=== PATIENT | female | born 1960 | race Caucasian/White ===

== ENCOUNTER 2017-04-16 11:02 | Observation (INO) ==
[2017-04-16] MEDS ORDERED: Ondansetron 4 MG/2 ML VIAL IVP ONE (11:20)
[2017-04-16] MEDS ORDERED: *HR* HYDROmorphone (PF) 1 MG/ML SYRINGE IVP ONE (11:20)
--- NOTE | 2017-04-16 11:20 | Emergency Department Note ---
Disposition Clinical Impression: Abdominal pain, Hypoxia Disposition: Admitted As Inpatient Condition: Good General Adult HPI - General Chief complaint: ED Abdominal Pain Stated complaint: ABD / Back Pain Time Seen by Provider: 04/16/17 11:11 Source: patient Limitations: no limitations - History of Present Illness Pain Scale: 10 - Related Data Home Medications Medication Instructions Recorded Confirmed Albuterol Neb [Proventil Neb] 2.5 mg IH TID PRN 06/09/16 04/16/17 Atorvastatin Calcium [Lipitor] 80 mg PO HS 06/09/16 04/16/17 Budesonide/Formoterol 160/4.5 2 puff IH BIDR 06/09/16 04/16/17 [Symbicort 160/4.5] Fluticasone Propionate Nasal 2 spray NS DAILY 06/09/16 04/16/17 [Flonase] Ipratropium/Albuterol Sulfate 1 puff IH QID 06/09/16 04/16/17 [Combivent Respimat Inhal [place]] Magnesium Oxide [Magnesium] 400 mg PO DAILY 06/09/16 04/16/17 Metoprolol XL (24 HR) Succ [Toprol 100 mg PO DAILY 06/09/16 04/16/17 Xl] Omeprazole [PriLOSEC] 20 mg PO DAILY 06/09/16 04/16/17 Paroxetine HCl [Paroxetine] 40 mg PO DAILY 06/09/16 04/16/17 Vitamin B Complex [B Complex] 1 tab PO DAILY 06/09/16 04/16/17 amLODIPine [Norvasc] 5 mg PO DAILY 06/09/16 04/16/17 Guaifenesin [Mucinex] 600 mg PO BID 07/11/16 04/16/17 Promethazine [Phenergan] 25 mg PO Q8HR PRN 07/11/16 04/16/17 hydrOXYzine HCl [Hydroxyzine HCl] 50 mg PO BID 07/11/16 04/16/17 Aspirin [Lo-Dose Aspirin EC] 81 mg PO DAILY 08/02/16 04/16/17 Albuterol Sulfate [Ventolin Hfa] 2 puff IH Q4H PRN 04/16/17 04/16/17 Loperamide [Imodium] 2 mg PO DAILY PRN 04/16/17 04/16/17 Naproxen [Naprosyn] 500 mg PO BID 04/16/17 04/16/17 Potassium Chloride [K-Tab ER] 20 meq PO DAILY 04/16/17 04/16/17 Allergies Allergy/AdvReac Type Severity Reaction Status Date / Time No Known Allergies Allergy Verified 06/09/16 14:59 Past Medical History - Past Medical History Medical history: Reports: COPD, hypertension, liver disease, TIA Surgical history: Reports: other (D/C, attempted colonoscopy (to prox Tcolon)) Psychiatric history: Reports: anxiety, depression - Social History Smoking Status: Current every day smoker Smokeless Tobacco Status: No Alcohol use: Reports: heavy Drug use: Reports: none Physical Exam - General Limitations: no limitations General appearance: alert Course Vital Signs Temperature 98.7 F 04/16/17 11:07 Pulse Rate 86 04/16/17 11:07 Respiratory Rate 18 04/16/17 11:07 Blood Pressure 153/91 04/16/17 11:07 O2 Sat by Pulse Oximetry 97 04/16/17 11:07 Temperature 98.4 F 04/17/17 07:00 Pulse Rate 74 04/17/17 07:00 Respiratory Rate 16 04/17/17 07:00 Blood Pressure 159/98 04/17/17 07:00 O2 Sat by Pulse Oximetry 98 04/17/17 07:00 Oxygen Delivery Oxygen Delivery Nasal Cannula Medical Decision Making - Lab Data Result diagrams: 04/16/17 12:01 04/16/17 12:01 Lab Results 04/16/17 04/16/17 04/16/17 Range/Units 11:30 12:01 12:01 WBC 10.6 (4.3-11.1) K/mcL RBC 4.15 (3.82-4.97) M/mcL Hgb 13.3 (11.5-15.4) g/dL Hct 39.0 (35.3-44.9) % MCV 94.0 (83.0-100.0) fL MCH 32.0 (28.0-33.3) pg MCHC 34.1 (31.6-35.5) g/dL RDW 13.2 (11.5-14.5) % Plt Count (140-400) K/mcL MPV (9.4-12.4) fL Immature Gran % 0.3 (0-4) % Seg Neutrophils % 84.9 % Lymphocytes % 6.8 % Monocytes % 6.5 % Eosinophils % 0.8 % Basophils % 0.7 % Neutrophils # 9.0 H (1.6-8.9) K/mcL Lymphocytes # 0.7 (0.6-4.6) K/mcL Monocytes # 0.7 (0.0-1.3) K/mcL Eosinophils # 0.1 (0.0-0.6) K/mcL Basophils # 0.1 (0.0-0.2) K/mcL Plt Count ,Citrate (150-600) Sodium 132 L (136-145) mEq/L Potassium 3.8 (3.5-4.5) mEq/L Chloride 95 L (98-109) mEq/L Carbon Dioxide 24 (19-29) mEq/L BUN 3 L (7-20) mg/dL Creatinine 0.65 (0.57-1.11) mg/dL Est GFR ( Amer) > 60 (> 60) Est GFR (Non-Af Amer) > 60 (> 60) BUN/Creatinine Ratio 5 L (6-26) Glucose 112 H (70-99) mg/dL Calculated Osmolality 271 L (280-300) Calcium 9.1 (8.6-10.8) mg/dL Total Bilirubin 0.6 (0.2-1.2) mg/dL Direct Bilirubin 0.3 (0.0-0.5) mg/dL Indirect Bilirubin 0.3 (0.0-1.2) mg/dL AST 39 H (5-34) Units/L ALT 20 (0-55) Units/L Alkaline Phosphatase 205 H (38-126) Units/L Troponin I (0-0.03) ng/mL Serum Total Protein 7.6 (6.0-8.3) g/dL Albumin 3.3 L (3.5-5.0) g/dL Globulin 4.3 H (2.4-3.5) g/dL Albumin/Globulin Ratio 0.8 L (1.1-2.2) Lipase 10 (8-78) Units/L Urine Color Yellow (Yellow) Urine Clarity Cloudy A (Clear) Urine pH 7.5 (5.0-8.0) pH Units Ur Specific [place] 1.010 (1.010-1.025) Urine Protein Negative (Neg-Trace) mg/dL Urine Glucose (UA) Normal (Normal) mg/dL Urine Ketones Negative (Negative) mg/dL Urine Blood Negative (Negative) Urine Nitrite Negative (Negative) Urine Bilirubin Negative (Negative) Urine Urobilinogen Normal (Normal) mg/dL Ur Leukocyte Esterase Moderate H (Negative) Urine Microscopic RBC 5-15 H (0-3) per hpf Urine Microscopic WBC 15-30 H (0-3) per hpf Ur Squamous Epith Cells Moderate H (None-Few) per lpf Urine Bacteria Many H (None-Few) per hpf Hyaline Casts None Seen (None-Few) per lpf Ur Culture Indicated? YES A (NO) 04/16/17 04/16/17 Range/Units 12:01 12:01 WBC (4.3-11.1) K/mcL RBC (3.82-4.97) M/mcL Hgb (11.5-15.4) g/dL Hct (35.3-44.9) % MCV (83.0-100.0) fL MCH (28.0-33.3) pg MCHC (31.6-35.5) g/dL RDW (11.5-14.5) % Plt Count (140-400) K/mcL MPV 8.7 L (9.4-12.4) fL Immature Gran % (0-4) % Seg Neutrophils % % Lymphocytes % % Monocytes % % Eosinophils % % Basophils % % Neutrophils # (1.6-8.9) K/mcL Lymphocytes # (0.6-4.6) K/mcL Monocytes # (0.0-1.3) K/mcL Eosinophils # (0.0-0.6) K/mcL Basophils # (0.0-0.2) K/mcL Plt Count ,Citrate 312.4 (150-600) Sodium (136-145) mEq/L Potassium (3.5-4.5) mEq/L Chloride (98-109) mEq/L Carbon Dioxide (19-29) mEq/L BUN (7-20) mg/dL Creatinine (0.57-1.11) mg/dL Est GFR ( Amer) (> 60) Est GFR (Non-Af Amer) (> 60) BUN/Creatinine Ratio (6-26) Glucose (70-99) mg/dL Calculated Osmolality (280-300) Calcium (8.6-10.8) mg/dL Total Bilirubin (0.2-1.2) mg/dL Direct Bilirubin (0.0-0.5) mg/dL Indirect Bilirubin (0.0-1.2) mg/dL AST (5-34) Units/L ALT (0-55) Units/L Alkaline Phosphatase (38-126) Units/L Troponin I 0.01 (0-0.03) ng/mL Serum Total Protein (6.0-8.3) g/dL Albumin (3.5-5.0) g/dL Globulin (2.4-3.5) g/dL Albumin/Globulin Ratio (1.1-2.2) Lipase (8-78) Units/L Urine Color (Yellow) Urine Clarity (Clear) Urine pH (5.0-8.0) pH Units Ur Specific [place] (1.010-1.025) Urine Protein (Neg-Trace) mg/dL Urine Glucose (UA) (Normal) mg/dL Urine Ketones (Negative) mg/dL Urine Blood (Negative) Urine Nitrite (Negative) Urine Bilirubin (Negative) Urine Urobilinogen (Normal) mg/dL Ur Leukocyte Esterase (Negative) Urine Microscopic RBC (0-3) per hpf Urine Microscopic WBC (0-3) per hpf Ur Squamous Epith Cells (None-Few) per lpf Urine Bacteria (None-Few) per hpf Hyaline Casts (None-Few) per lpf Ur Culture Indicated? (NO) Attestation Statement - Attestation Attestation: I examined this patient and my medical decision-making was reviewed with the Resident Physician. I agree with the documented findings, disposition and treatment plan as described except to the extent set forth below. [id number] time provided Patient complains of epigastric pain. She states this is chronic over the past 1 year. She is uncomfortable appearing on exam. Appears older than stated age. I have reviewed the transcribed reports from her hepatobiliary scan, abdominal MRI and surgery discharge note. Given that the abdominal MRI dated last year shows an edematous gallbladder wall, I am concerned about ongoing biliary issues. This could also represent peptic ulcer disease versus ulcer. Workup to be initiated
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
[2017-04-16 11:40] LABS: Bilirubin,Urine Negative (Negative); Blood,Urine Negative (Negative); Clarity,Urine Cloudy (Clear); Color,Urine Yellow (Yellow); Glucose,Urine (UA) Normal (Normal); Ketones,Urine Negative (Negative); Leukocyte Esterase,Urine Moderate (Negative); Nitrite,Urine Negative (Negative); PH,Urine 7.5 pH Units (5.0-8.0); Protein,Urine Negative (Neg-Trace); Urobilinogen,Urine Normal (Normal)
[2017-04-16 11:41] LABS: Bacteria,Urine Many per hpf (None-Few); Hyaline Casts,Urine None Seen per lpf (None-Few); Squamous Epithelial Cell,Urine Moderate per lpf (None-Few); WBC,Urine 15-30 per hpf (0-3)
[2017-04-16] MEDS ORDERED: Ipratropium/Albuterol Neb 3 ML IH ONE (11:45)
[2017-04-16] MEDS ORDERED: Ipratropium/Albuterol Neb 3 ML ONE (11:54)
[2017-04-16 12:09] LABS: Basophils % 0.7 %; Hemoglobin 13.3 g/dL (11.5-15.4)
[2017-04-16 12:11] LABS: Basophils # 0.1 K/mcL (0.0-0.2); Eosinophils # 0.1 K/mcL (0.0-0.6); Eosinophils % 0.8 %; Immature Granulocytes % 0.3 % (0-4); Lymphocytes # 0.7 K/mcL (0.6-4.6); Lymphocytes % 6.8 %; Mean Corpuscular HGB Conc 34.1 g/dL (31.6-35.5); Monocytes # 0.7 K/mcL (0.0-1.3); Monocytes % 6.5 %; Red Blood Count 4.15 M/mcL (3.82-4.97); Red Cell Distribution Width 13.2 % (11.5-14.5); Segmented Neutrophils % 84.9 %
[2017-04-16 12:28] LABS: Alanine Aminotransferase 20 Units/L (0-55); Albumin 3.3 g/dL (3.5-5.0); Albumin/Globulin Ratio 0.8 (1.1-2.2); Alkaline Phosphatase 205 Units/L (38-126); Aspartate Amino Transferase 39 Units/L (5-34); BUN/Creatinine Ratio 5 (6-26); Bilirubin,Direct 0.3 mg/dL (0.0-0.5); Bilirubin,Indirect 0.3 mg/dL (0.0-1.2); Bilirubin,Total 0.6 mg/dL (0.2-1.2); Calcium 9.1 mg/dL (8.6-10.8); Carbon Dioxide 24 mEq/L (19-29); Chloride 95 mEq/L (98-109); Globulin 4.3 g/dL (2.4-3.5); Glucose 112 mg/dL (70-99); Lipase 10 Units/L (8-78); Osmolality,Calculated 271 (280-300); Potassium 3.8 mEq/L (3.5-4.5); Sodium 132 mEq/L (136-145); Total Protein 7.6 g/dL (6.0-8.3); eGFR For African Americans > 60 (> 60); eGFR For Non-African Americans > 60 (> 60)
[2017-04-16 12:32] LABS: Blood Urea Nitrogen 3 mg/dL (7-20)
[2017-04-16 12:50] LABS: Mean Platelet Volume 8.7 fL (9.4-12.4)
--- NOTE | 2017-04-16 16:16 | Electrocardiograph Report ---
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
[2017-04-16] MEDS ORDERED: Naloxone 0.4 MG/ML INJ IVP PRN (16:45)
[2017-04-16] MEDS ORDERED: *HR* Morphine 2 MG/ML SYRINGE IVP PRN (16:45)
[2017-04-16] MEDS ORDERED: Ondansetron ODT 4 MG TAB.RAPDIS SL PRN (16:45)
[2017-04-16] MEDS ORDERED: Ondansetron 4 MG/2 ML VIAL IVP PRN (16:45)
[2017-04-16] MEDS ORDERED: Ipratropium/Albuterol Neb 3 ML IH PRN (16:47)
[2017-04-16] MEDS ORDERED: *HR* Promethazine 25 MG/ML VIAL IVP PRN (17:02)
[2017-04-16] MEDS ORDERED: *HR* LORazepam 2 MG/ML VIAL IVP PRN (17:02)
--- NOTE | 2017-04-16 17:10 | Internal Med History&Physical ---
Date of Encounter: 04/16/17 Time of Encounter: 17:06 Assessment and Plan (1) Intractable nausea and vomiting Current visit: Yes Status: Acute Place the pt into Tele for observation her intractable N / V due to viral gastroenteritis also concerning for alcohol withdrawl symptoms pt stated she did have last alcohol drink 48hrs ago at this point cont symptomatic and supportive care IV hydration PO PPI Anti emetics Qualifiers: Qualified Code(s): R11.2 - Nausea with vomiting, unspecified (2) Gastroenteritis Current visit: Yes Status: Acute mostly viral etiology also possible withdrawl symptoms (3) Alcohol withdrawal Current visit: Yes Status: Acute concerning for alcohol withdrawl symptoms pt stated she did have last alcohol drink 48hrs ago at this point cont symptomatic and supportive care IV hydration PO PPI Anti emetics started her on CIWA protocol Qualifiers: Qualified Code(s): F10.230 - Alcohol dependence with withdrawal, uncomplicated (4) COPD (chronic obstructive pulmonary disease) Current visit: Yes Status: Chronic no signs of exacerbation cont bronchodilators and O2 resume home INH no need of systemic steroids Qualifiers: Qualified Code(s): J44.9 - Chronic obstructive pulmonary disease, unspecified (5) Hypoxia Current visit: Yes Status: Acute due to COPD need home O2 eval and over nite pulse oxy --ordered (6) Tobacco dependence Current visit: Yes Status: Acute counseled to quit and placed her on nicotine patch (7) Alcohol abuse Current visit: No Status: Chronic counseled to quit drinking (8) Hypertension Current visit: Yes Status: Acute resumed home meds Qualifiers: Hypertension type: essential hypertension Qualified Code(s): I10 - Essential (primary) hypertension Internal Medicine - H&P: HPI Chief complaint: Nausea / vomiting - Hypoxia Admitted From: Emergency Dept Plans for Post Hospital Care: Home History of present illness: Ms. Rodriguez is a 57 year old female with known PMH of HTN, HLD, COPD and Chronic hypoxic resp failure - but not using Oxygen from last 3months, also chronic alcohol dependence , drinks 6 beer every day presented to ER c/o she has been having nausea and vomiting since last 2 days with epigastric discomfort and diarrhea. Pt symptoms improved here in the ER and she was about sent home, her Spo2 dropped down to 75 % and required home O2 evaluation. Pt denied any CP. Denied any cough with expectoration. Past Med Surg Social Fam HX - Past Medical History Medical history: COPD, hypertension, liver disease, TIA Psychiatric history: anxiety, depression - Past Surgical History Surgical History: other (D/C, attempted colonoscopy (to prox Tcolon)) - Social History Smoking Status: Current every day smoker Smokeless Tobacco Status: No Alcohol use: heavy Drug use: none Internal Medicine - H&P: Meds Albuterol Neb [Proventil Neb] 2.5 mg IH TID PRN 06/09/16 [History] Atorvastatin Calcium [Lipitor] 80 mg PO HS 06/09/16 [History] Budesonide/Formoterol 160/4.5 [Symbicort 160/4.5] 2 puff IH BIDR 06/09/16 [ History] Fluticasone Propionate Nasal [Flonase] 2 spray NS DAILY 06/09/16 [History] Ipratropium/Albuterol Sulfate [Combivent Respimat Inhal [place]] 1 puff IH QID [History] Magnesium Oxide [Magnesium] 400 mg PO DAILY 06/09/16 [History] Metoprolol XL (24 HR) Succ [Toprol Xl] 100 mg PO DAILY 06/09/16 [History] Omeprazole [PriLOSEC] 20 mg PO DAILY 06/09/16 [History] Paroxetine HCl [Paroxetine] 40 mg PO DAILY 06/09/16 [History] Vitamin B Complex [B Complex] 1 tab PO DAILY 06/09/16 [History] amLODIPine [Norvasc] 5 mg PO DAILY 06/09/16 [History] Guaifenesin [Mucinex] 600 mg PO BID 07/11/16 [History] Promethazine [Phenergan] 25 mg PO Q8HR PRN 07/11/16 [History] hydrOXYzine HCl [Hydroxyzine HCl] 50 mg PO BID 07/11/16 [History] Aspirin [Lo-Dose Aspirin EC] 81 mg PO DAILY 08/02/16 [History] Albuterol Sulfate [Ventolin Hfa] 2 puff IH Q4H PRN 04/16/17 [History] Loperamide [Imodium] 2 mg PO DAILY PRN 04/16/17 [History] Naproxen [Naprosyn] 500 mg PO BID 04/16/17 [History] Potassium Chloride [K-Tab ER] 20 meq PO DAILY 04/16/17 [History] Allergies No Known Allergies Allergy (Verified 06/09/16 14:59) All Systems PM: A 10-system review of systems was performed and is negative for pertinent findings except as documented above in the HPI. Review of systems: Reviewed all the systems everything is benign except the systems and symptoms I mentioned in HPI. - Constitutional Vitals: Temp Pulse Resp BP Pulse Ox 98.7 F 76 24 133/91 97 04/16/17 11:07 04/16/17 15:36 04/16/17 16:55 04/16/17 16:55 04/16/17 15:36 General appearance: Present: A&O X 3, no acute distress, answers questions appropriately - Head Head exam: Present: atraumatic, normal inspection - Respiratory Respiratory exam: Present: decreased breath sounds, wheezes. Absent: respiratory distress, rhonchi - Cardiovascular Cardiovascular exam: Present: RRR, +S1, +S2. Absent: diastolic murmur, systolic murmur - GI/Abdominal GI/Abdominal exam: Present: normal bowel sounds, soft. Absent: distended, guarding, rebound, rigid, tenderness - Extremities Exam Extremities exam: Absent: calf tenderness, pedal edema, tenderness - Back Exam Back exam: Absent: CVA tenderness (L), CVA tenderness (R) - Neurological Exam Neurological exam: Present: alert, oriented X3 - Psychiatric Psychiatric exam: Present: anxious Internal Med - H&P Results - Labs CBC & Chem 7: 04/16/17 12:01 04/16/17 12:01 - Diagnostic Studies CT scan - abdomen Additional comments: No acute abnormality. Sigmoid diverticulosis Incomplete distention of the sigmoid, most likely due to underdistention and less likely due to mild colitis. There is no adjacent inflammatory change.
[2017-04-16] MEDS: Nicotine 21 MG PATCH.TD24 TD SCH (17:59)
[2017-04-16] MEDS: hydrOXYzine pamoate 25 MG CAPSULE PO SCH (19:42)
[2017-04-16] MEDS: *HR* LORazepam 2 MG/ML VIAL IVP PRN (19:42)
[2017-04-16] MEDS: Budesonide/Formoterol 160/4.5 MDI IH SCH (20:34)
[2017-04-17] MEDS: *HR* LORazepam 2 MG/ML VIAL IVP PRN ×2 (00:52→06:38)
[2017-04-17] MEDS: *HR* OxyCODONE Immed Rel 5 MG TABLET PO PRN ×2 (00:52→06:38)
[2017-04-17 07:06] VITALS: BP 159/98
--- NOTE | 2017-04-17 08:26 | Discharge Summary ---
Date of Encounter: 04/17/17 Time of Encounter: 08:21 - Discharge Diagnosis (1) Intractable nausea and vomiting Priority: Primary Status: Resolved Qualifiers: Qualified Code(s): R11.2 - Nausea with vomiting, unspecified (2) Gastroenteritis Priority: Secondary Status: Resolved (3) Alcohol withdrawal Priority: Secondary Status: Acute Qualifiers: Qualified Code(s): F10.230 - Alcohol dependence with withdrawal, uncomplicated (4) COPD (chronic obstructive pulmonary disease) Priority: Secondary Status: Chronic Qualifiers: Qualified Code(s): J44.9 - Chronic obstructive pulmonary disease, unspecified (5) Hypoxia Priority: Primary Status: Acute (6) Tobacco dependence Priority: Secondary Status: Acute (7) Alcohol abuse Priority: Secondary Status: Chronic (8) Hypertension Priority: Secondary Status: Acute Qualifiers: Hypertension type: essential hypertension Qualified Code(s): I10 - Essential (primary) hypertension - Discharge Medications Prescriptions: LORazepam [Ativan] 0.5 mg PO TID PRN #10 tablet PRN Reason: Alcohol Withdrawal Nicotine Patch [Nicoderm] 21 mg TD DAILY #28 Home Medications: Albuterol Neb [Proventil Neb] 2.5 mg IH TID PRN 06/09/16 [History] Atorvastatin Calcium [Lipitor] 80 mg PO HS 06/09/16 [History] Budesonide/Formoterol 160/4.5 [Symbicort 160/4.5] 2 puff IH BIDR 06/09/16 [ History] Fluticasone Propionate Nasal [Flonase] 2 spray NS DAILY 06/09/16 [History] Ipratropium/Albuterol Sulfate [Combivent Respimat Inhal [place]] 1 puff IH QID [History] Magnesium Oxide [Magnesium] 400 mg PO DAILY 06/09/16 [History] Metoprolol XL (24 HR) Succ [Toprol Xl] 100 mg PO DAILY 06/09/16 [History] Omeprazole [PriLOSEC] 20 mg PO DAILY 06/09/16 [History] Paroxetine HCl [Paroxetine] 40 mg PO DAILY 06/09/16 [History] Vitamin B Complex [B Complex] 1 tab PO DAILY 06/09/16 [History] amLODIPine [Norvasc] 5 mg PO DAILY 06/09/16 [History] Guaifenesin [Mucinex] 600 mg PO BID 07/11/16 [History] Promethazine [Phenergan] 25 mg PO Q8HR PRN 07/11/16 [History] hydrOXYzine HCl [Hydroxyzine HCl] 50 mg PO BID 07/11/16 [History] Aspirin [Lo-Dose Aspirin EC] 81 mg PO DAILY 08/02/16 [History] Albuterol Sulfate [Ventolin Hfa] 2 puff IH Q4H PRN 04/16/17 [History] Loperamide [Imodium] 2 mg PO DAILY PRN 04/16/17 [History] Potassium Chloride [K-Tab ER] 20 meq PO DAILY 04/16/17 [History] LORazepam [Ativan] 0.5 mg PO TID PRN #10 tablet 04/17/17 [Rx] Naproxen [Naprosyn] 500 mg PO BID PRN #0 04/17/17 [Rx] Nicotine Patch [Nicoderm] 21 mg TD DAILY #28 04/17/17 [Rx] Allergies/Adverse Reactions: Allergies No Known Allergies Allergy (Verified 06/09/16 14:59) Date of admission: 04/16/17 16:37 Primary care physician: PCP NONE Consults: 04/16/17 17:02 Consult to Biblical Studies Professor [CONS] Routine Reason for SW Consult: Alcohol dependence - Patient Status Disposition: Home, Self-Care Condition: Good Overall status at discharge: patient is back to baseline - Discharge Instructions Follow Up With: NONE,PCP [Primary Care Provider] - - Diet and Activity Activity: increase activity as tolerated, wear oxygen at all times (3 lit) Diet: low salt diet Hospital course: Ms. Rodriguez is a 57 year old female with known PMH of HTN, HLD, COPD and Chronic hypoxic resp failure - but not using Oxygen from last 3months, also chronic alcohol dependence , drinks 6 beer every day presented to ER c/o she has been having nausea and vomiting since last 2 days with epigastric discomfort and diarrhea. Pt symptoms improved here in the ER and she was about sent home, her Spo2 dropped down to 75 % and required home O2 evaluation. Pt was admitted here last night for hypoxia and acute viral gastroenteritis. Her nausea and vomiting improved. She is tolerating PO intake well. I did college and career counselor the pt to quit drinking alcohol, she wants to think about it. Also counseled the pt to quit smoking and discharging her home on Nicotine patches. We did over night pulse oxy study which showed Spo2 below 88 % even on 2 lit O2, required 3 lit O2 at night time. During day time at resting her Spo2 78 %, and with 3 lit O2 her SPo2 93 %. So will d/c her home today with 3 lit continuous O2. - Time Spent with Patient Total time spent providing and/or coordinating discharge services: - Constitutional Vitals: Temp Pulse Resp BP Pulse Ox 98.4 F 74 16 159/98 98 04/17/17 07:00 04/17/17 07:00 04/17/17 07:00 04/17/17 07:00 04/17/17 07:00 General appearance: Present: A&O X 3, no acute distress, answers questions appropriately - Head Head exam: Present: atraumatic, normal inspection - Neck Neck exam general surgery: Present: supple. Absent: lymphadenopathy, thyromegaly - Respiratory Respiratory exam: Present: decreased breath sounds, wheezes. Absent: rales, respiratory distress, rhonchi, tachypnea - Cardiovascular Cardiovascular exam: Present: RRR, +S1, +S2 - GI/Abdominal GI/Abdominal exam: Present: normal bowel sounds, soft. Absent: distended, guarding, rebound, rigid, tenderness - Extremities Exam Extremities exam: Absent: calf tenderness, pedal edema, tenderness - Neurological Exam Neurological exam: Present: alert, oriented X3 - Psychiatric Psychiatric exam: Present: normal affect, normal mood
[2017-04-17] MEDS: hydrOXYzine pamoate 25 MG CAPSULE PO SCH (08:29)
[2017-04-17] MEDS: Nicotine 21 MG PATCH.TD24 TD SCH (08:30)
[2017-04-17 08:57] LABS: Alanine Aminotransferase 16 Units/L (0-55); Albumin 2.8 g/dL (3.5-5.0); Albumin/Globulin Ratio 0.8 (1.1-2.2); Alkaline Phosphatase 169 Units/L (38-126); Aspartate Amino Transferase 27 Units/L (5-34); BUN/Creatinine Ratio 6 (6-26); Bilirubin,Total 0.8 mg/dL (0.2-1.2); Calcium 8.1 mg/dL (8.6-10.8); Carbon Dioxide 27 mEq/L (19-29); Chloride 91 mEq/L (98-109); Globulin 3.6 g/dL (2.4-3.5); Glucose 98 mg/dL (70-99); Magnesium 1.4 mg/dL (1.6-2.6); Osmolality,Calculated 255 (280-300); Potassium 3.7 mEq/L (3.5-4.5); Total Protein 6.4 g/dL (6.0-8.3); eGFR For African Americans > 60 (> 60); eGFR For Non-African Americans > 60 (> 60)
[2017-04-17 08:58] LABS: Blood Urea Nitrogen 4 mg/dL (7-20); Sodium 124 mEq/L (136-145)
[2017-04-17] MEDS ORDERED: Magnesium Oxide 400 MG TABLET PO SCH (09:00)
[2017-04-17] MEDS ORDERED: Vitamin B Complex/Vit C/Vit E 1 EACH TABLET PO SCH (09:00)
[2017-04-17] MEDS ORDERED: amLODIPine 5 MG TABLET PO SCH (09:00)
[2017-04-17] MEDS ORDERED: Metoprolol XL (24 HR) Succ 50 MG TAB.ER.24H PO SCH (09:00)
[2017-04-17] MEDS ORDERED: Thiamine (B-1) 100 MG TABLET PO SCH (09:00)
[2017-04-17] MEDS ORDERED: Aspirin Enteric Coated 81 MG Tablet PO SCH (09:00)
[2017-04-17] MEDS ORDERED: Folic Acid 1 MG TABLET PO SCH (09:00)
[2017-04-17] MEDS ORDERED: Fluticasone Propionate Nasal 50 MCG/SPRAY BOTTLE NS SCH (09:00)
[2017-04-17 09:34] LABS: Basophils # 0.1 K/mcL (0.0-0.2); Basophils % 0.7 %; Eosinophils # 0.4 K/mcL (0.0-0.6); Eosinophils % 5.2 %; Hematocrit 36.6 % (35.3-44.9); Hemoglobin 11.7 g/dL (11.5-15.4); Immature Granulocytes % 0.6 % (0-4); Immature Platelets 23.5 % (1.1-6.1); Lymphocytes # 1.3 K/mcL (0.6-4.6); Lymphocytes % 15.9 %; Mean Corpuscular Hemoglobin 31.3 pg (28.0-33.3); Mean Corpuscular Volume 97.9 fL (83.0-100.0); Mean Platelet Volume 10.2 fL (9.4-12.4); Monocytes # 0.6 K/mcL (0.0-1.3); Monocytes % 7.2 %; Neutrophils # 5.7 K/mcL (1.6-8.9); Red Blood Count 3.74 M/mcL (3.82-4.97); Segmented Neutrophils % 70.4 %
[2017-04-17 09:35] LABS: Platelet Count 253 K/mcL (140-400)
[2017-04-17] MEDS: Budesonide/Formoterol 160/4.5 MDI IH SCH (11:12)
== END 2017-04-17 13:41 | disposition home or self-care (01) ==
LOC: EMEROO 11:02 → 3BNU 11:02
PROVIDERS: ADMIT Registered Nurse; ATTEND Registered Nurse

== ENCOUNTER 2017-06-07 11:43 | Inpatient (IN) ==
[2017-06-07] MEDS ORDERED: Ondansetron 4 MG/2 ML VIAL IVP ONE (15:49)
[2017-06-07] MEDS ORDERED: *HR* Morphine 2 MG/ML SYRINGE IVP ONE (15:49)
[2017-06-07] MEDS ORDERED: 0.9 % Sodium Chloride 500 ML IVC ONE (15:52)
[2017-06-07] MEDS ORDERED: Aspirin 81 MG TAB.CHEW PO ONE (15:53)
--- NOTE | 2017-06-07 15:55 | Emergency Department Note ---
Disposition Clinical Impression: Tobacco dependence, Hepatic steatosis, Right upper quadrant abdominal pain, Hyperbilirubinemia, Nausea and vomiting in adult, Hyponatremia, Acute exacerbation of chronic obstructive pulmonary disease (COPD), Acute hyponatremia COPD (chronic obstructive pulmonary disease) Qualifiers: COPD type: COPD with acute exacerbation Qualified Code(s): J44.1 - Chronic obstructive pulmonary disease with (acute) exacerbation Disposition: Admitted As Inpatient Condition: Fair Time of Disposition: 19:07 SOB HPI - General Chief Complaint: ED Headache Stated Complaint: Head/chest congestion/Can't Hardly Walk Time Seen by Provider: 06/07/17 15:02 Source: patient Limitations: no limitations Nursing Notes Reviewed: Yes Vital Signs Reviewed: Yes - History of Present Illness Patient is a 57-year-old female with COPD comes to the ED after 4 days of worsening cough, sputum production, and generalized weakness. Patient tells me that were days ago, copy and worsening and she began to feel generally unwell citing nonpolitical body aches as well as general weakness. Patient has been coughing unceasingly which has been productive of her typical white sputum, but in greater quantity. Patient tells me that she is often coughing hard enough to have episodes of vomiting; she sites up to 6 episodes of post tests of emphasis on a daily basis over the past 4 days. When asked what explicitly got her to come to the ED today, patient tells me that she is generally feeling weak and not able to get around as well as she normally does; she does not associate this weakness with any worsening exertional shortness of breath. On further questioning, patient does describe nausea and vomiting independent of coughing episodes as well as pain in the epigastric region that seems to radiate into her back. No clear pattern/factorial association. Patient does use 2 L nasal cannula 02 at home on a regular basis, stating she has had to use this more frequently and at higher rates. - Related Data Home Medications Medication Instructions Recorded Confirmed Albuterol Neb [Proventil Neb] 2.5 mg IH TID PRN 06/09/16 04/16/17 Atorvastatin Calcium [Lipitor] 80 mg PO HS 06/09/16 04/16/17 Budesonide/Formoterol 160/4.5 2 puff IH BIDR 06/09/16 04/16/17 [Symbicort 160/4.5] Fluticasone Propionate Nasal 2 spray NS DAILY 06/09/16 04/16/17 [Flonase] Ipratropium/Albuterol Sulfate 1 puff IH QID 06/09/16 04/16/17 [Combivent Respimat Inhal Bonesteel] Magnesium Oxide [Magnesium] 400 mg PO DAILY 06/09/16 04/16/17 Metoprolol XL (24 HR) Succ [Toprol 100 mg PO DAILY 06/09/16 04/16/17 Xl] Omeprazole [PriLOSEC] 20 mg PO DAILY 06/09/16 04/16/17 Paroxetine HCl [Paroxetine] 40 mg PO DAILY 06/09/16 04/16/17 Vitamin B Complex [B Complex] 1 tab PO DAILY 06/09/16 04/16/17 amLODIPine [Norvasc] 5 mg PO DAILY 06/09/16 04/16/17 Guaifenesin [Mucinex] 600 mg PO BID 07/11/16 04/16/17 Promethazine [Phenergan] 25 mg PO Q8HR PRN 07/11/16 04/16/17 hydrOXYzine HCl [Hydroxyzine HCl] 50 mg PO BID 07/11/16 04/16/17 Aspirin [Lo-Dose Aspirin EC] 81 mg PO DAILY 08/02/16 04/16/17 Albuterol Sulfate [Ventolin Hfa] 2 puff IH Q4H PRN 04/16/17 04/16/17 Loperamide [Imodium] 2 mg PO DAILY PRN 04/16/17 04/16/17 Potassium Chloride [K-Tab ER] 20 meq PO DAILY 04/16/17 04/16/17 Previous Rx's Medication Instructions Recorded LORazepam [Ativan] 0.5 mg PO TID PRN #10 tablet 04/17/17 Naproxen [Naprosyn] 500 mg PO BID PRN #0 04/17/17 Nicotine Patch [Nicoderm] 21 mg TD DAILY #28 04/17/17 Allergies Allergy/AdvReac Type Severity Reaction Status Date / Time No Known Allergies Allergy Verified 06/09/16 14:59 Constitutional: Reports: weakness Eyes: Denies: vision change ENT ED: Reports: congestion. Denies: ear pain Cardiovascular: Reports: orthopnea. Denies: chest pain, palpitations, dyspnea on exertion, edema, syncope Respiratory: Reports: cough, dyspnea, wheezes, sputum production. Denies: hemoptysis Gastrointestinal: Reports: abdominal pain, nausea, vomiting. Denies: diarrhea, constipation Genitourinary: Denies: dysuria, frequency Musculoskeletal: Reports: back pain Neurological: Reports: headache, weakness. Denies: numbness Past Medical History - Past Medical History Attestation: Yes The following information was validated with the patient. Source: nursing notes reviewed Medical history: Reports: COPD, hypertension, liver disease, TIA Surgical history: Reports: other (D/C, attempted colonoscopy (to prox Tcolon); no abdominal surgeries.) Psychiatric history: Reports: anxiety, depression - Social History Smoking Status: Current every day smoker Smokeless Tobacco Status: No Alcohol use: Reports: heavy Drug use: Reports: none Physical Exam - General Limitations: no limitations General appearance: alert, in no apparent distress - Head Head exam: atraumatic - Eye Eye exam: Present: normal appearance, PERRL, EOMI. Absent: scleral icterus, conjunctival injection - ENT ENT exam: mucous membranes dry - Neck Neck exam: Present: trachea midline - Chest Chest inspection: Present: symmetric chest wall rise - Respiratory Respiratory exam: Present: wheezes, other (Scattered expiratory wheezes). Absent: respiratory distress, stridor, accessory muscle use - Cardiovascular Cardiovascular exam: Present: regular rate, normal rhythm, tachycardia. Absent : systolic murmur, diastolic murmur, JVD - Abdominal Exam Abdominal exam: Present: soft, tenderness, normal bowel sounds. Absent: guarding, rebound, rigidity, Phoenix's sign, tenderness at McBurney's Point, ascites Abdominal tenderness: Present: epigastrium, moderate - Extremities Exam Extremities exam: Present: normal inspection, other (Pulses bilaterally symmetrical 2+). Absent: pedal edema, calf tenderness - Expanded Lower Extremity Exam Lower leg exam: Present: normal inspection Ankle exam: Present: normal inspection - Neurological Exam Neurological exam: Present: alert, oriented X3 - Psychiatric Psychiatric exam: Present: normal affect - Skin Skin exam: Present: warm, dry, normal color. Absent: cyanosis, diaphoresis, pallor Course - Reevaluation(s) Reevaluation #1: Patient's general condition is unchanged. Discuss lab and radiologic workup with patient as well as mentioned benefit of hospitalization at this time. Patient is amenable to this admission. Time: 18:15 - Consultations Consultation #1: Spoke with hospitalist regarding admission for further treatment and evaluation of hyponatremia, abd pain with cholestatic lab pattern, and acute COPD exacerbation. Hospitalist accepts care of patient. Time: 18:30 Vital Signs Temperature 98 F 06/07/17 12:00 Pulse Rate 114 06/07/17 12:00 Respiratory Rate 18 06/07/17 12:00 Blood Pressure 130/83 06/07/17 12:00 O2 Sat by Pulse Oximetry 96 06/07/17 12:00 Temperature 98 F 06/07/17 12:00 Pulse Rate 126 06/07/17 19:12 Respiratory Rate 20 06/07/17 19:12 Blood Pressure 114/82 06/07/17 19:12 O2 Sat by Pulse Oximetry 99 06/07/17 19:12 Oxygen Delivery Oxygen Delivery Nasal Cannula Shortness of Breath/Dyspnea - MDM Narrative Medical decision making narrative: Patient has a sodium level of 120, which is depressed from her baseline levels which tend to be around 130. Patient has also been having abdominal pain and lab work demonstrates a pattern of cholestasis despite negative GB U/S. Lastly , patient describes generalized weakness associated with acute coughing and chest congestion -- dx COPD exacerbation due to acute bronchitis. For these reasons, will admit patient to hospitalist service for further evaluation and treatment. Hospitalist paged and case discussed; patient accepted to IP service as obs. - Differential Diagnosis Likely: acute exacerbation of chronic obstructive airways disease - Lab Data Lab results reviewed: Yes I reviewed the patient's lab results. Lab results narrative: Laboratory Last Values WBC 13.2 K/mcL (4.3-11.1) H 06/07/17 16:15 RBC 3.74 M/mcL (3.82-4.97) L 06/07/17 16:15 Hgb 12.1 g/dL (11.5-15.4) 06/07/17 16:15 Hct 34.4 % (35.3-44.9) L 06/07/17 16:15 MCV 92.0 fL (83.0-100.0) 06/07/17 16:15 MCH 32.4 pg (28.0-33.3) 06/07/17 16:15 MCHC 35.2 g/dL (31.6-35.5) 06/07/17 16:15 RDW 13.2 % (11.5-14.5) 06/07/17 16:15 Plt Count TNP 06/07/17 16:15 MPV 8.8 fL (9.4-12.4) L 06/07/17 16:15 Immature Gran % 0.4 % (0-4) 06/07/17 16:15 Seg Neutrophils % 84.8 % 06/07/17 16:15 Lymphocytes % 8.8 % 06/07/17 16:15 Monocytes % 5.5 % 06/07/17 16:15 Eosinophils % 0.3 % 06/07/17 16:15 Basophils % 0.2 % 06/07/17 16:15 Neutrophils # 11.2 K/mcL (1.6-8.9) H 06/07/17 16:15 Lymphocytes # 1.2 K/mcL (0.6-4.6) 06/07/17 16:15 Monocytes # 0.7 K/mcL (0.0-1.3) 06/07/17 16:15 Eosinophils # 0.0 K/mcL (0.0-0.6) 06/07/17 16:15 Basophils # 0.0 K/mcL (0.0-0.2) 06/07/17 16:15 Plt Count ,Citrate 179.3 (150-600) 06/07/17 16:15 Sodium 120 mEq/L (136-145) L* 06/07/17 16:15 Potassium 3.4 mEq/L (3.5-4.5) L 06/07/17 16:15 Chloride 79 mEq/L (98-109) L 06/07/17 16:15 Carbon Dioxide 30 mEq/L (19-29) H 06/07/17 16:15 BUN 3 mg/dL (7-20) L 06/07/17 16:15 Creatinine 0.55 mg/dL (0.57-1.11) L 06/07/17 16:15 Est GFR ( Amer) > 60 (> 60) 06/07/17 16:15 Est GFR (Non-Af Amer) > 60 (> 60) 06/07/17 16:15 BUN/Creatinine Ratio 5 (6-26) L 06/07/17 16:15 Glucose 119 mg/dL (70-99) H 06/07/17 16:15 Calculated Osmolality 248 (280-300) L 06/07/17 16:15 Calcium 8.8 mg/dL (8.6-10.8) 06/07/17 16:15 Total Bilirubin 1.9 mg/dL (0.2-1.2) H 06/07/17 16:15 Direct Bilirubin 1.1 mg/dL (0.0-0.5) H 06/07/17 16:15 Indirect Bilirubin 0.8 mg/dL (0.0-1.2) 06/07/17 16:15 AST 99 Units/L (5-34) H 06/07/17 16:15 ALT 51 Units/L (0-55) 06/07/17 16:15 Alkaline Phosphatase 179 Units/L (38-126) H 06/07/17 16:15 Troponin I 0.01 ng/mL (0-0.03) 06/07/17 16:15 Serum Total Protein 6.6 g/dL (6.0-8.3) 06/07/17 16:15 Albumin 3.2 g/dL (3.5-5.0) L 06/07/17 16:15 Globulin 3.4 g/dL (2.4-3.5) 06/07/17 16:15 Albumin/Globulin Ratio 0.9 (1.1-2.2) L 06/07/17 16:15 Lipase 11 Units/L (8-78) 06/07/17 16:15 Urine Color Dark Yellow (Yellow) 06/07/17 17:16 Urine Clarity Cloudy (Clear) A 06/07/17 17:16 Urine pH 7.0 pH Units (5.0-8.0) 06/07/17 17:16 Ur Specific [place] 1.011 (1.010-1.025) 06/07/17 17:16 Urine Protein Negative mg/dL (Neg-Trace) 06/07/17 17:16 Urine Glucose (UA) Normal mg/dL (Normal) 06/07/17 17:16 Urine Ketones Trace mg/dL (Negative) H 06/07/17 17:16 Urine Blood Negative (Negative) 06/07/17 17:16 Urine Nitrite Negative (Negative) 06/07/17 17:16 Urine Bilirubin Negative (Negative) 06/07/17 17:16 Urine Urobilinogen Normal mg/dL (Normal) 06/07/17 17:16 Ur Leukocyte Esterase Trace (Negative) H 06/07/17 17:16 Urine Microscopic WBC 0-3 per hpf (0-3) 06/07/17 17:16 Ur Squamous Epith Cells Few per lpf (None-Few) 06/07/17 17:16 Ur Culture Indicated? YES (NO) A 06/07/17 17:16 Result diagrams: 06/07/17 16:15 06/07/17 16:15 Lab Results 06/07/17 06/07/17 06/07/17 Range/Units 16:15 16:15 16:15 WBC 13.2 H (4.3-11.1) K/mcL RBC 3.74 L (3.82-4.97) M/mcL Hgb 12.1 (11.5-15.4) g/dL Hct 34.4 L (35.3-44.9) % MCV 92.0 (83.0-100.0) fL MCH 32.4 (28.0-33.3) pg MCHC 35.2 (31.6-35.5) g/dL RDW 13.2 (11.5-14.5) % Plt Count TNP MPV 11.6 (9.4-12.4) fL Immature Gran % 0.4 (0-4) % Seg Neutrophils % 84.8 % Lymphocytes % 8.8 % Monocytes % 5.5 % Eosinophils % 0.3 % Basophils % 0.2 % Neutrophils # 11.2 H (1.6-8.9) K/mcL Lymphocytes # 1.2 (0.6-4.6) K/mcL Monocytes # 0.7 (0.0-1.3) K/mcL Eosinophils # 0.0 (0.0-0.6) K/mcL Basophils # 0.0 (0.0-0.2) K/mcL Plt Count ,Citrate (150-600) Sodium 120 L* (136-145) mEq/L Potassium 3.4 L (3.5-4.5) mEq/L Chloride 79 L (98-109) mEq/L Carbon Dioxide 30 H (19-29) mEq/L BUN 3 L (7-20) mg/dL Creatinine 0.55 L (0.57-1.11) mg/dL Est GFR ( Amer) > 60 (> 60) Est GFR (Non-Af Amer) > 60 (> 60) BUN/Creatinine Ratio 5 L (6-26) Glucose 119 H (70-99) mg/dL Calculated Osmolality 248 L (280-300) Calcium 8.8 (8.6-10.8) mg/dL Total Bilirubin 1.9 H (0.2-1.2) mg/dL Direct Bilirubin 1.1 H (0.0-0.5) mg/dL Indirect Bilirubin 0.8 (0.0-1.2) mg/dL AST 99 H (5-34) Units/L ALT 51 (0-55) Units/L Alkaline Phosphatase 179 H (38-126) Units/L Troponin I 0.01 (0-0.03) ng/mL Serum Total Protein 6.6 (6.0-8.3) g/dL Albumin 3.2 L (3.5-5.0) g/dL Globulin 3.4 (2.4-3.5) g/dL Albumin/Globulin Ratio 0.9 L (1.1-2.2) Lipase 11 (8-78) Units/L Urine Color (Yellow) Urine Clarity (Clear) Urine pH (5.0-8.0) pH Units Ur Specific Adams (1.010-1.025) Urine Protein (Neg-Trace) mg/dL Urine Glucose (UA) (Normal) mg/dL Urine Ketones (Negative) mg/dL Urine Blood (Negative) Urine Nitrite (Negative) Urine Bilirubin (Negative) Urine Urobilinogen (Normal) mg/dL Ur Leukocyte Esterase (Negative) Urine Microscopic WBC (0-3) per hpf Ur Squamous Epith Cells (None-Few) per lpf Ur Culture Indicated? (NO) 06/07/17 06/07/17 Range/Units 16:15 17:16 WBC (4.3-11.1) K/mcL RBC (3.82-4.97) M/mcL Hgb (11.5-15.4) g/dL Hct (35.3-44.9) % MCV (83.0-100.0) fL MCH (28.0-33.3) pg MCHC (31.6-35.5) g/dL RDW (11.5-14.5) % Plt Count MPV 8.8 L (9.4-12.4) fL Immature Gran % (0-4) % Seg Neutrophils % % Lymphocytes % % Monocytes % % Eosinophils % % Basophils % % Neutrophils # (1.6-8.9) K/mcL Lymphocytes # (0.6-4.6) K/mcL Monocytes # (0.0-1.3) K/mcL Eosinophils # (0.0-0.6) K/mcL Basophils # (0.0-0.2) K/mcL Plt Count ,Citrate 179.3 (150-600) Sodium (136-145) mEq/L Potassium (3.5-4.5) mEq/L Chloride (98-109) mEq/L Carbon Dioxide (19-29) mEq/L BUN (7-20) mg/dL Creatinine (0.57-1.11) mg/dL Est GFR ( Amer) (> 60) Est GFR (Non-Af Amer) (> 60) BUN/Creatinine Ratio (6-26) Glucose (70-99) mg/dL Calculated Osmolality (280-300) Calcium (8.6-10.8) mg/dL Total Bilirubin (0.2-1.2) mg/dL Direct Bilirubin (0.0-0.5) mg/dL Indirect Bilirubin (0.0-1.2) mg/dL AST (5-34) Units/L ALT (0-55) Units/L Alkaline Phosphatase (38-126) Units/L Troponin I (0-0.03) ng/mL Serum Total Protein (6.0-8.3) g/dL Albumin (3.5-5.0) g/dL Globulin (2.4-3.5) g/dL Albumin/Globulin Ratio (1.1-2.2) Lipase (8-78) Units/L Urine Color Dark Yellow (Yellow) Urine Clarity Cloudy A (Clear) Urine pH 7.0 (5.0-8.0) pH Units Ur Specific Adams 1.011 (1.010-1.025) Urine Protein Negative (Neg-Trace) mg/dL Urine Glucose (UA) Normal (Normal) mg/dL Urine Ketones Trace H (Negative) mg/dL Urine Blood Negative (Negative) Urine Nitrite Negative (Negative) Urine Bilirubin Negative (Negative) Urine Urobilinogen Normal (Normal) mg/dL Ur Leukocyte Esterase Trace H (Negative) Urine Microscopic WBC 0-3 (0-3) per hpf Ur Squamous Epith Cells Few (None-Few) per lpf Ur Culture Indicated? YES A (NO) - Radiology Data Radiology results reviewed: Yes I reviewed the patient's radiology results. Chest X-Ray 06/07/17 12:18 IMPRESSION: 1. No active pulmonary disease. D/ / Benitez Mtz MD / Benitez Mtz MD Interpreting Provider: Benitez Mtz MD Gallbladder Ultrasound 06/07/17 15:54 IMPRESSION: 1. Moderate hepatic steatosis with suspicion for mild hepatomegaly. 2. Otherwise normal examination. D/ / Aneesh Brooks MD / Aneesh Brooks MD Interpreting Provider: Aneesh Brooks MD - EKG Data EKG attestation: Yes I reviewed and interpreted this EKG. EKG shows normal: Reports: sinus rhythm, axis, intervals, QRS complexes, ST-T waves Rate: Reports: normal Rhythm: Reports: NSR [place]/QRS: Reports: normal When compared to previous EKG there are: no significant changes Interpretation: Reports: no acute changes, normal EKG Attestation Statement - Attestation Attestation: I examined this patient and my medical decision-making was reviewed with the Resident Physician, Dr. Olsen. I agree with the documented findings, disposition and treatment plan as described except to the extent set forth below. Patient is a 49-year-old white female with a history of COPD who presents to the emergency department with multiple complaints today. Initially patient complained of a four-day history of gradually worsening upper respiratory symptoms including nasal congestion, nonproductive cough, gradually worsening shortness of breath with wheezing. Patient states she has been having subjective fevers and chills with this, symptoms seem similar to her COPD exacerbations. Patient states she had a last exacerbation apparently one month ago in which she saw her family doctor and they started her on steroids and antibiotics. Patient states her symptoms improved until the last 4 days. Patient also complaining of some new onset epigastric and right upper quadrant abdominal pain which began in the past 24 hours associated with nausea and vomiting. Patient has been coughing but insists that her vomiting is not related to the coughing and that she is just having isolated vomiting associated with her nausea and abdominal pain. I agree with patient's physical exam findings as documented. For me on auscultation she was having some end expiratory wheezing throughout but no signs of respiratory distress. She was on her home O2 on my assessment with no hypoxia. Patient also had some mild tenderness to palpation in the epigastric right upper quadrant without peritoneal signs, abdomen soft with good bowel sounds. 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 Patient had an EKG which was negative for any acute ischemic change. Patient' s chest x-ray was unremarkable for any infiltrates or consolidations. Patient received DuoNeb treatments here in the ED. Patient also received antiemetics for nausea and some pain medicine. Labs show hyponatremia so patient was continued on an small IV fluid boluses both for dehydration with ketonuria as well as her hyponatremia. Patient was found to have elevations in her bilirubin , alkaline phosphatase, and LFTs. Due to this in association with her clinical exam we ordered a gallbladder ultrasound for further evaluation. Patient's ultrasound showed fatty liver but no concerning changes with the gallbladder. Lipase is normal. At this time we will admit the patient for further evaluation and treatment of her right upper quadrant abdominal pain with nausea and vomiting, continue hydration for her mild dehydration as well as her hyponatremia. We will also continue breathing treatments for her exacerbation of COPD. Case was discussed with the hospitalist who accepted the patient for admission for further evaluation and management.
[2017-06-07] MEDS ORDERED: Ipratropium/Albuterol Neb 3 ML IH ONE (15:58)
[2017-06-07 16:46] LABS: Alanine Aminotransferase 51 Units/L (0-55); Albumin 3.2 g/dL (3.5-5.0); Albumin/Globulin Ratio 0.9 (1.1-2.2); Alkaline Phosphatase 179 Units/L (38-126); Aspartate Amino Transferase 99 Units/L (5-34); BUN/Creatinine Ratio 5 (6-26); Bilirubin,Direct 1.1 mg/dL (0.0-0.5); Bilirubin,Indirect 0.8 mg/dL (0.0-1.2); Bilirubin,Total 1.9 mg/dL (0.2-1.2); Calcium 8.8 mg/dL (8.6-10.8); Carbon Dioxide 30 mEq/L (19-29); Chloride 79 mEq/L (98-109); Globulin 3.4 g/dL (2.4-3.5); Glucose 119 mg/dL (70-99); Lipase 11 Units/L (8-78); Osmolality,Calculated 248 (280-300); Potassium 3.4 mEq/L (3.5-4.5); Total Protein 6.6 g/dL (6.0-8.3); eGFR For African Americans > 60 (> 60); eGFR For Non-African Americans > 60 (> 60)
[2017-06-07 16:49] LABS: Blood Urea Nitrogen 3 mg/dL (7-20); Sodium 120 mEq/L (136-145)
[2017-06-07 16:50] LABS: Basophils % 0.2 %; Eosinophils % 0.3 %; Hematocrit 34.4 % (35.3-44.9); Hemoglobin 12.1 g/dL (11.5-15.4); Immature Granulocytes % 0.4 % (0-4); Lymphocytes # 1.2 K/mcL (0.6-4.6); Lymphocytes % 8.8 %; Mean Corpuscular HGB Conc 35.2 g/dL (31.6-35.5); Mean Corpuscular Hemoglobin 32.4 pg (28.0-33.3); Mean Platelet Volume 11.6 fL (9.4-12.4); Monocytes # 0.7 K/mcL (0.0-1.3); Monocytes % 5.5 %; Neutrophils # 11.2 K/mcL (1.6-8.9); Red Blood Count 3.74 M/mcL (3.82-4.97); Red Cell Distribution Width 13.2 % (11.5-14.5); Segmented Neutrophils % 84.8 %
[2017-06-07 16:56] LABS: Mean Platelet Volume 8.8 fL (9.4-12.4)
[2017-06-07 17:25] LABS: Bilirubin,Urine Negative (Negative); Blood,Urine Negative (Negative); Clarity,Urine Cloudy (Clear); Color,Urine Dark Yellow (Yellow); Glucose,Urine (UA) Normal (Normal); Ketones,Urine Trace mg/dL (Negative); Leukocyte Esterase,Urine Trace (Negative); Nitrite,Urine Negative (Negative); Protein,Urine Negative (Neg-Trace); Specific Gravity,Urine 1.011 (1.010-1.025); Urobilinogen,Urine Normal (Normal)
[2017-06-07 17:48] LABS: Squamous Epithelial Cell,Urine Few per lpf (None-Few); WBC,Urine 0-3 per hpf (0-3)
[2017-06-07] MEDS ORDERED: *HR* LORazepam 0.5 MG TABLET PO ONE (19:30)
[2017-06-07] MEDS ORDERED: *HR* Morphine 2 MG/ML SYRINGE IVP PRN (20:35)
[2017-06-07] MEDS ORDERED: Naloxone 0.4 MG/ML INJ IVP PRN (20:35)
[2017-06-07] MEDS ORDERED: Acetaminophen 325 MG TABLET PO PRN (20:35)
[2017-06-07] MEDS ORDERED: *HR* LORazepam 2 MG/ML VIAL IVP PRN ×2 (20:38)
[2017-06-07] MEDS: 0.9 % Sodium Chloride 1,000 ML IVC SCH (20:58)
[2017-06-07] MEDS: levoFLOXacin 750 MG TABLET PO SCH (21:01)
[2017-06-07] MEDS ORDERED: Potassium Chloride Elixir 20 MEQ/15 ML UDC PO ONE (21:33)
[2017-06-07] MEDS: *HR* HYDROcodone/Acet 5/325 mg TABLET PO PRN (22:06)
[2017-06-07] MEDS: Nicotine 21 MG PATCH.TD24 TD SCH (22:23)
[2017-06-07 22:30] LABS: BUN/Creatinine Ratio 5 (6-26); Blood Urea Nitrogen 3 mg/dL (7-20); Calcium 8.5 mg/dL (8.6-10.8); Carbon Dioxide 28 mEq/L (19-29); Chloride 85 mEq/L (98-109); Glucose 123 mg/dL (70-99); Osmolality,Calculated 260 (280-300); Potassium 3.1 mEq/L (3.5-4.5); Sodium 126 mEq/L (136-145); eGFR For African Americans > 60 (> 60); eGFR For Non-African Americans > 60 (> 60)
--- NOTE | 2017-06-07 22:33 | Internal Med History&Physical ---
Date of Encounter: 06/07/17 Time of Encounter: 22:30 Assessment and Plan (1) Acute hyponatremia Current visit: Yes Status: Acute Patient with known chronic hyponatremia with a sodium at baseline being around 1 :30. Today she presents with sodium of 120. She reports she has been having nausea and vomiting for about 2 days prior to presentation. She also has a history of chronic alcohol abuse. Its likely her hyponatremia is due to hypovolemia, with associated beer potomania. Continue normal saline adequate ventricular 100 mL per hour. Monitor urine every 6. Send urine sodium and creatinine. Urine osmolality. Check TSH. (2) Acute exacerbation of chronic obstructive pulmonary disease (COPD) Current visit: Yes Status: Acute Patient presented with worsening cough with increasing sputum quantity. She denies any change in the color of her sputum. She was wheezing diffusely on exam. Opal nebs every 4 hours, prednisone already, and Levaquin orally. Continue oxygen supplementation. (3) Alcohol abuse Current visit: Yes Status: Chronic Patient drinks 6 pack beer daily She currently has tachycardia, but she has no tremors and she is oriented 3 Place on CIWA protocol Very high risk for alcohol withdrawal Multivitamin, thiamine, folic acid daily already. (4) Hepatic steatosis Current visit: Yes Status: Chronic Continue Lipitor. Monitor LFTs. Check lipid panel with a.m. labs. (5) Hypertension Current visit: Yes Status: Chronic Controlled, continue home medications. Qualifiers: Hypertension type: essential hypertension Qualified Code(s): I10 - Essential (primary) hypertension (6) Tobacco dependence Current visit: Yes Status: Chronic Nicotine replacement therapy. (7) Malnutrition Current visit: Yes Status: Chronic Patient is cachectic with very low albumin levels. Consult nutrition Qualifiers: Malnutrition type: protein-calorie malnutrition Protein-calorie malnutrition severity: moderate Qualified Code(s): E44.0 - Moderate protein- calorie malnutrition (8) Hypokalemia Current visit: Yes Status: Acute Potassium was replaced by mouth Check potassium with morning labs as well as magnesium. (9) Leukocytosis Current visit: Yes Status: Acute Nonspecific. Possibly secondary to bronchitis from COPD exacerbation. Also possible to contraction from persistent nausea and vomiting. Patient has no fever and there is no source for patient is not septic. Continue to monitor Qualifiers: Leukocytosis type: unspecified Qualified Code(s): D72.829 - Elevated white blood cell count, unspecified Internal Medicine - H&P: HPI Chief complaint: Shortness of breath, nausea and vomiting. Admitted From: Home Plans for Post Hospital Care: Home History of present illness: Ms. Rodriguez is a 57 year old female with known history of daily alcohol abuse and heavy tobacco use, hypertension, hyperlipidemia, chronic respiratory failure on home oxygen, hepatic steatosis, and COPD. She presented to the ER with complaints of worsening cough with increased quantities of sputum production. No change in her sputum color. She denies fever or chills. She also reported right upper quadrant and epigastric discomfort, nonradiating, with no known relieving or aggravating factors. She also reported associated nausea and vomiting. She has had 2 episodes of vomiting today. Vomitus was nonbilious and nonbloody. She denies chest pain, orthopnea, or leg swelling. She denies diarrhea. There is no change in the color of stool. Patient was found in the ER to have hyponatremia, leukocytosis, and tachycardia. However, chest x-ray has no infiltrates, high urine analysis is unremarkable for UTI. Past Med Surg Social Fam HX - Past Medical History Medical history: COPD, hypertension, liver disease, TIA Psychiatric history: anxiety, depression - Past Surgical History Surgical History: other - Social History Smoking Status: Current every day smoker Smokeless Tobacco Status: No Alcohol use: heavy Drug use: none - Family History Brother Living Status: Hx Family Cancer: Yes (Lung) Internal Medicine - H&P: Meds Albuterol Neb [Proventil Neb] 2.5 mg IH TID PRN 06/09/16 [History] Atorvastatin Calcium [Lipitor] 80 mg PO HS 06/09/16 [History] Budesonide/Formoterol 160/4.5 [Symbicort 160/4.5] 2 puff IH BIDR 06/09/16 [ History] Fluticasone Propionate Nasal [Flonase] 2 spray NS DAILY 06/09/16 [History] Ipratropium/Albuterol Sulfate [Combivent Respimat Inhal [place]] 1 puff IH QID [History] Magnesium Oxide [Magnesium] 400 mg PO DAILY 06/09/16 [History] Metoprolol XL (24 HR) Succ [Toprol Xl] 100 mg PO DAILY 06/09/16 [History] Omeprazole [PriLOSEC] 20 mg PO DAILY 06/09/16 [History] Paroxetine HCl [Paroxetine] 40 mg PO DAILY 06/09/16 [History] Vitamin B Complex [B Complex] 1 tab PO DAILY 06/09/16 [History] amLODIPine [Norvasc] 5 mg PO DAILY 06/09/16 [History] Guaifenesin [Mucinex] 600 mg PO BID 07/11/16 [History] Promethazine [Phenergan] 25 mg PO Q8HR PRN 07/11/16 [History] hydrOXYzine HCl [Hydroxyzine HCl] 50 mg PO BID 07/11/16 [History] Aspirin [Lo-Dose Aspirin EC] 81 mg PO DAILY 08/02/16 [History] Albuterol Sulfate [Ventolin Hfa] 2 puff IH Q4H PRN 04/16/17 [History] Loperamide [Imodium] 2 mg PO DAILY PRN 04/16/17 [History] Potassium Chloride [K-Tab ER] 20 meq PO DAILY 04/16/17 [History] LORazepam [Ativan] 0.5 mg PO TID PRN #10 tablet 04/17/17 [Rx] Naproxen [Naprosyn] 500 mg PO BID PRN #0 04/17/17 [Rx] Nicotine Patch [Nicoderm] 21 mg TD DAILY #28 04/17/17 [Rx] 3 Allergy/AdvReac Type Severity Reaction Status Date / Time No Known Allergies Allergy Verified 06/09/16 14:59 All Systems PM: A 10-system review of systems was performed and is negative for pertinent findings except as documented above in the HPI. - Constitutional Constitutional: no chills, no fever(s), no night sweats - EENT Eyes: no change in vision, no discharge, no pain, no photophobia Ears: no ear discharge, no ear pain, no tinnitus Nose, mouth and throat: no dysphagia, no nasal discharge, no neck pain, no sore throat - Cardiovascular Cardiovascular ROS IM: as per HPI - Respiratory Respiratory: as per HPI - Gastrointestinal Gastrointestinal: as per HPI - Genitourinary Genitourinary: no change in urinary stream, no dysuria, no flank pain, no hematuria - Musculoskeletal Musculoskeletal ROS IM: no numbness, no tingling - Integumentary Integumentary IM: no rash, no unusual bruising - Neurological Neurological ROS: no confusion, no convulsions, no focal weakness, no numbness, no tingling, no tremor(s) - Hematologic/Lymphatic Hematologic/Lymphatic: no easy bruising - Constitutional Vitals: Temp Pulse Resp BP Pulse Ox 98.4 F 116 19 127/83 97 06/07/17 19:47 06/07/17 19:47 06/07/17 19:47 06/07/17 19:47 06/07/17 19:47 General appearance: Present: cachectic, disheveled, A&O X 3, pleasant, no acute distress - Head Head exam: Present: atraumatic, normocephalic - Eye Eye exam: Present: PERRL, conjuntiva pink, sclera anicteric Pupils: Present: PERRL - ENT ENT exam: Present: mucous membranes moist - Neck Neck exam general surgery: Present: supple, trachea midline. Absent: lymphadenopathy - Respiratory Respiratory exam: Present: wheezes. Absent: respiratory distress - Cardiovascular Cardiovascular exam: Present: RRR, +S1, +S2. Absent: diastolic murmur, gallop, rubs, systolic murmur - GI/Abdominal GI/Abdominal exam: Present: normal bowel sounds, soft, no peritoneal signs. Absent: distended, tenderness - Extremities Exam Extremities exam: Present: warm, radial pulses palpable and symmetrical. Absent : calf tenderness, cyanotic, pedal edema - Neurological Exam Neurological exam: Present: alert, CN II-XII intact, oriented X3, no focal deficits. Absent: pronater drift, facial droop, speech deficit - Skin Skin exam: Present: dry, intact Internal Med - H&P Results - Labs CBC & Chem 7: 06/07/17 16:15 06/07/17 16:15
[2017-06-07] MEDS: Ipratropium/Albuterol Neb 3 ML IH SCH (23:51)
[2017-06-08] MEDS: *HR* LORazepam 2 MG/ML VIAL IVP PRN ×2 (02:27→10:15)
[2017-06-08] MEDS: Ipratropium/Albuterol Neb 3 ML IH SCH ×6 (03:37→23:31)
[2017-06-08 06:57] LABS: BUN/Creatinine Ratio 5 (6-26); Calcium 7.9 mg/dL (8.6-10.8); Carbon Dioxide 26 mEq/L (19-29); Chloride 91 mEq/L (98-109); Chol/HDL Ratio 1.6 (0-4.9); Cholesterol 187 mg/dL (< 200); Glucose 117 mg/dL (70-99); HDL Cholesterol 115 mg/dL (40-59); LDL Cholesterol,Calculated 55 mg/dL (0-99); Magnesium 1.4 mg/dL (1.6-2.6); Osmolality,Calculated 260 (280-300); Potassium 3.2 mEq/L (3.5-4.5); Sodium 126 mEq/L (136-145); Triglycerides 86 mg/dL (< 150); eGFR For African Americans > 60 (> 60); eGFR For Non-African Americans > 60 (> 60)
[2017-06-08 06:58] LABS: Blood Urea Nitrogen 3 mg/dL (7-20)
[2017-06-08] MEDS: Nicotine 21 MG PATCH.TD24 TD SCH (07:44)
[2017-06-08] MEDS: levoFLOXacin 750 MG TABLET PO SCH (07:45)
[2017-06-08] MEDS: Aspirin Enteric Coated 81 MG Tablet PO SCH (07:45)
[2017-06-08] MEDS: predniSONE 20 MG TABLET PO SCH (07:45)
[2017-06-08] MEDS: 0.9 % Sodium Chloride 1,000 ML IVC SCH ×2 (07:45→11:25)
[2017-06-08] MEDS: Thiamine (B-1) 100 MG TABLET PO SCH (07:45)
[2017-06-08] MEDS: Folic Acid 1 MG TABLET PO SCH (07:45)
[2017-06-08 10:56] LABS: Basophils % 0.1 %; Eosinophils % 0.4 %; Hemoglobin 10.1 g/dL (11.5-15.4); Mean Corpuscular Volume 96.5 fL (83.0-100.0)
[2017-06-08 10:57] LABS: Eosinophils # 0.1 K/mcL (0.0-0.6); Hematocrit 29.9 % (35.3-44.9); Immature Granulocytes % 0.6 % (0-4); Lymphocytes # 0.4 K/mcL (0.6-4.6); Lymphocytes % 2.9 %; Mean Corpuscular HGB Conc 33.8 g/dL (31.6-35.5); Mean Corpuscular Hemoglobin 32.6 pg (28.0-33.3); Monocytes # 0.3 K/mcL (0.0-1.3); Monocytes % 2.4 %; Neutrophils # 11.1 K/mcL (1.6-8.9); Red Cell Distribution Width 13.1 % (11.5-14.5); Segmented Neutrophils % 93.6 %
[2017-06-08 11:06] LABS: Mean Platelet Volume 8.4 fL (9.4-12.4)
[2017-06-08 11:16] LABS: BUN/Creatinine Ratio 5 (6-26); Blood Urea Nitrogen 3 mg/dL (7-20); Calcium 8.2 mg/dL (8.6-10.8); Carbon Dioxide 26 mEq/L (19-29); Chloride 89 mEq/L (98-109); Glucose 133 mg/dL (70-99); Osmolality,Calculated 256 (280-300); Potassium 3.4 mEq/L (3.5-4.5); Sodium 124 mEq/L (136-145); eGFR For African Americans > 60 (> 60); eGFR For Non-African Americans > 60 (> 60)
--- NOTE | 2017-06-08 19:11 | Electrocardiograph Report ---
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
[2017-06-08] MEDS: *HR* HYDROcodone/Acet 5/325 mg TABLET PO PRN (21:34)
--- NOTE | 2017-06-08 22:14 | Internal Med Progress Note ---
Date of Encounter: 06/08/17 Time of Encounter: 12:00 - Assessment and plan (1) Acute hyponatremia Current Visit: Yes Status: Acute Assessment and plan: Last admission shows baseline sodium around 128-132. Currently sodium improved but then went from 126 down to 124. Either this is a new baseline or need to adjust sodium repletion. She is asymptomatic. (2) Alcohol abuse Current Visit: Yes Status: Chronic Assessment and plan: Has CIWA protocol in effect. (3) Hepatic steatosis Current Visit: Yes Status: Chronic (4) Nausea and vomiting in adult Current Visit: Yes Status: Acute (5) Malnutrition Current Visit: Yes Status: Chronic Qualifiers: Malnutrition type: protein-calorie malnutrition Protein-calorie malnutrition severity: moderate Qualified Code(s): E44.0 - Moderate protein- calorie malnutrition (6) Hypokalemia Current Visit: Yes Status: Acute - Subjective Interval history: No complaints, no acute events. - Constitutional Vitals: Temp Pulse Resp BP Pulse Ox 97.9 F 102 20 154/93 97 06/08/17 19:39 06/08/17 19:39 06/08/17 19:40 06/08/17 19:39 06/08/17 19:40 General appearance: Present: cachectic, disheveled, A&O X 3, pleasant, no acute distress - GI/Abdominal GI/Abdominal exam: Present: normal bowel sounds, soft, no peritoneal signs. Absent: distended, tenderness - Extremities Exam Extremities exam: Present: warm, radial pulses palpable and symmetrical. Absent : calf tenderness, cyanotic, pedal edema - Psychiatric Psychiatric exam: Present: normal affect, normal mood Internal Medicine: Result - Labs CBC & Chem 7: 06/08/17 10:31 06/08/17 09:47 Labs: Short CBC 06/08/17 Range/Units 10:31 WBC 11.9 H (4.3-11.1) K/mcL Hgb 10.1 L D (11.5-15.4) g/dL Hct 29.9 L (35.3-44.9) % Plt Count TNP Neutrophils # 11.1 H (1.6-8.9) K/mcL BMP 06/07/17 06/08/17 06/08/17 21:38 06:07 09:47 Sodium 126 L 126 L 124 L Potassium 3.1 L 3.2 L 3.4 L Chloride 85 L 91 L 89 L Carbon Dioxide 28 26 26 BUN 3 L 3 L 3 L Creatinine 0.57 0.63 0.61 Glucose 123 H 117 H 133 H Calcium 8.5 L 7.9 L 8.2 L Consult Discharge Plan - Plan Referrals: Terrie Joseph, FILENET ADMIN [Primary Care Provider] -
[2017-06-08] MEDS ORDERED: Melatonin 3 MG TABLET PO ONE (23:07)
[2017-06-09] MEDS: 0.9 % Sodium Chloride 1,000 ML IVC SCH ×3 (02:12→14:18)
[2017-06-09] MEDS: Ipratropium/Albuterol Neb 3 ML IH SCH ×4 (03:29→16:01)
[2017-06-09 05:28] LABS: Basophils % 0.1 %; Eosinophils % 0.7 %; Immature Granulocytes % 0.7 % (0-4); Mean Corpuscular Volume 94.7 fL (83.0-100.0); Red Cell Distribution Width 12.7 % (11.5-14.5)
[2017-06-09 05:29] LABS: Eosinophils # 0.1 K/mcL (0.0-0.6); Hematocrit 30.4 % (35.3-44.9); Hemoglobin 10.2 g/dL (11.5-15.4); Immature Platelets 34.2 % (1.1-6.1); Lymphocytes # 1.3 K/mcL (0.6-4.6); Lymphocytes % 12.3 %; Mean Corpuscular HGB Conc 33.6 g/dL (31.6-35.5); Mean Corpuscular Hemoglobin 31.8 pg (28.0-33.3); Mean Platelet Volume 13.1 fL (9.4-12.4); Monocytes # 0.7 K/mcL (0.0-1.3); Monocytes % 6.7 %; Neutrophils # 8.3 K/mcL (1.6-8.9); Red Blood Count 3.21 M/mcL (3.82-4.97); Segmented Neutrophils % 79.5 %
[2017-06-09 05:59] LABS: Mean Platelet Volume 8.7 fL (9.4-12.4)
[2017-06-09 06:03] LABS: BUN/Creatinine Ratio 9 (6-26); Calcium 8.2 mg/dL (8.6-10.8); Carbon Dioxide 23 mEq/L (19-29); Chloride 93 mEq/L (98-109); Glucose 136 mg/dL (70-99); Osmolality,Calculated 265 (280-300); Potassium 3.3 mEq/L (3.5-4.5); Sodium 128 mEq/L (136-145); eGFR For African Americans > 60 (> 60); eGFR For Non-African Americans > 60 (> 60)
[2017-06-09 06:04] LABS: Blood Urea Nitrogen 5 mg/dL (7-20)
[2017-06-09] MEDS: Thiamine (B-1) 100 MG TABLET PO SCH (09:02)
[2017-06-09] MEDS: predniSONE 20 MG TABLET PO SCH (09:02)
[2017-06-09] MEDS: levoFLOXacin 750 MG TABLET PO SCH (09:02)
[2017-06-09] MEDS: Folic Acid 1 MG TABLET PO SCH (09:02)
[2017-06-09] MEDS: Aspirin Enteric Coated 81 MG Tablet PO SCH (09:02)
[2017-06-09] MEDS: Nicotine 21 MG PATCH.TD24 TD SCH (09:03)
[2017-06-09] MEDS: *HR* HYDROcodone/Acet 5/325 mg TABLET PO PRN (09:13)
[2017-06-09 12:35] LABS: BUN/Creatinine Ratio 9 (6-26); Blood Urea Nitrogen 5 mg/dL (7-20); Calcium 8.3 mg/dL (8.6-10.8); Carbon Dioxide 29 mEq/L (19-29); Chloride 90 mEq/L (98-109); Glucose 165 mg/dL (70-99); Osmolality,Calculated 265 (280-300); Potassium 3.5 mEq/L (3.5-4.5); Sodium 127 mEq/L (136-145); eGFR For African Americans > 60 (> 60); eGFR For Non-African Americans > 60 (> 60)
[2017-06-09 15:37] VITALS: BP 147/89
[2017-06-09] MEDS ORDERED: Multivit/Ca/Min/Fe/FA 1 TAB TABLET PO SCH (16:30)
--- NOTE | 2017-06-09 16:54 | Discharge Summary ---
Date of Encounter: 06/09/17 Time of Encounter: 16:49 - Discharge Diagnosis (1) Acute hyponatremia Priority: Primary Status: Acute (2) Alcohol abuse Priority: Secondary Status: Chronic (3) Hepatic steatosis Priority: Secondary Status: Chronic (4) Nausea and vomiting in adult Priority: Secondary Status: Acute (5) Malnutrition Priority: Secondary Status: Chronic Qualifiers: Malnutrition type: protein-calorie malnutrition Protein-calorie malnutrition severity: moderate Qualified Code(s): E44.0 - Moderate protein- calorie malnutrition (6) Hypokalemia Priority: Secondary Status: Acute - Discharge Medications Prescriptions: Levofloxacin [Levaquin] 750 mg PO DAILY #3 tablet levoFLOXacin [Levaquin] 750 mg PO DAILY #3 tablet PredniSONE [Deltasone] 40 mg PO DAILY #8 tablet Home Medications: Albuterol Neb [Proventil Neb] 2.5 mg IH TID PRN 06/09/16 [History] Budesonide/Formoterol 160/4.5 [Symbicort 160/4.5] 2 puff IH BIDR 06/09/16 [ History] Fluticasone Propionate Nasal [Flonase] 2 spray NS DAILY 06/09/16 [History] Ipratropium/Albuterol Sulfate [Combivent Respimat Inhal [place]] 1 puff IH QID [History] Magnesium Oxide [Magnesium] 400 mg PO DAILY 06/09/16 [History] Metoprolol XL (24 HR) Succ [Toprol Xl] 100 mg PO DAILY 06/09/16 [History] Omeprazole [PriLOSEC] 20 mg PO DAILY 06/09/16 [History] Paroxetine HCl [Paroxetine] 40 mg PO DAILY 06/09/16 [History] Vitamin B Complex [B Complex] 1 tab PO DAILY 06/09/16 [History] amLODIPine [Norvasc] 5 mg PO DAILY 06/09/16 [History] Promethazine [Phenergan] 25 mg PO Q8HR PRN 07/11/16 [History] Aspirin [Lo-Dose Aspirin EC] 81 mg PO DAILY 08/02/16 [History] Albuterol Sulfate [Ventolin Hfa] 2 puff IH Q4H PRN 04/16/17 [History] Potassium Chloride [K-Tab ER] 20 meq PO DAILY 04/16/17 [History] Buspirone HCl [Buspar] 10 mg PO BID 06/08/17 [History] Meloxicam [Mobic] 15 mg PO DAILY 06/08/17 [History] Tiotropium [Spiriva] 1 puff IH DAILY 06/08/17 [History] Levofloxacin [Levaquin] 750 mg PO DAILY #3 tablet 06/09/17 [Rx] PredniSONE [Deltasone] 40 mg PO DAILY #8 tablet 06/09/17 [Rx] levoFLOXacin [Levaquin] 750 mg PO DAILY #3 tablet 06/09/17 [Rx] Allergies/Adverse Reactions: 3 Allergy/AdvReac Type Severity Reaction Status Date / Time No Known Allergies Allergy Verified 06/09/16 14:59 Date of admission: 06/07/17 20:35 Primary care physician: Terrie Joseph CNP Consults: 06/07/17 20:38 Consult to Special Delivery Carrier [CONS] Routine Reason for SW Consult: Alcohol abuse 06/07/17 22:42 Consult to Nutrition [CONS] Routine Comment: Consulting Provider: NUTRITION Reason for Dietary Consult: PO Supplementation Discharging clinician: Bishop Castellanos - Patient Status Disposition: Home, Self-Care Condition: Fair - Discharge Instructions Instructions: Prednisone (By mouth), Penbutolol (By mouth), Chronic Obstructive Pulmonary Disease (DC) Follow Up With: Terrie Joseph CNP [Primary Care Provider] - (web request sent on 06/09/17) Additional Instructions: in 2-3 days - Diet and Activity Activity: increase activity as tolerated Diet: regular diet Interval History: Ms. Rodriguez is a 57 year old female with known history of daily alcohol abuse and heavy tobacco use, hypertension, hyperlipidemia, chronic respiratory failure on home oxygen, hepatic steatosis, and COPD. She presented to the ER with complaints of worsening cough with increased quantities of sputum production. No change in her sputum color. She denies fever or chills. She also reported right upper quadrant and epigastric discomfort, nonradiating, with no known relieving or aggravating factors. She also reported associated nausea and vomiting. She has had 2 episodes of vomiting today. Vomitus was nonbilious and nonbloody. She denies chest pain, orthopnea, or leg swelling. She denies diarrhea. There is no change in the color of stool. Patient was found in the ER to have hyponatremia, leukocytosis, and tachycardia. However, chest x-ray has no infiltrates, high urine analysis is unremarkable for UTI. Hospital course: Sodium was found to be 120 her hypernatremia is most likely due to hypovolemia and beer proteinemia normal saline was given ER and it was continued continued a rate of 100 mL per hour sodium was monitored every 6 hours as placed on serial protocol for her history of alcoholism. Her sodium corrected to 126 she waited from 125-127. Her magnesium was found to be low and so was replaced in home medication was restarted. She did not require can amount of Ativan C was score remains low for greater than one day duration. She was given Levaquin for 2 days. She improved with her sodium becoming and breathing status improved. She was discharged home with Levaquin for an additional 4 days and prednisone burst for an additional 4 days. Time spent discussing smoking cessation with patient: 3 to 10 minutes - Time Spent with Patient Total time spent providing and/or coordinating discharge services: Less than 30 minutes - Constitutional Vitals: Temp Pulse Resp BP Pulse Ox 97.4 F L 103 16 147/89 94 06/09/17 15:36 06/09/17 15:36 06/09/17 15:36 06/09/17 15:36 06/09/17 15:36 General appearance: Present: cachectic, disheveled, A&O X 3, pleasant, no acute distress Exam: - Constitutional Constitutional: no chills, no fever(s), no night sweats - EENT Eyes: no change in vision, no discharge, no pain, no photophobia Ears: no ear discharge, no ear pain, no tinnitus Nose, mouth and throat: no dysphagia, no nasal discharge, no neck pain, no sore throat - Cardiovascular Cardiovascular ROS IM: as per HPI - Respiratory Respiratory: as per HPI - Gastrointestinal Gastrointestinal: as per HPI - Genitourinary Genitourinary: no change in urinary stream, no dysuria, no flank pain, no hematuria - Musculoskeletal Musculoskeletal ROS IM: no numbness, no tingling - Integumentary Integumentary IM: no rash, no unusual bruising - Neurological Neurological ROS: no confusion, no convulsions, no focal weakness, no numbness, no tingling, no tremor(s) - Hematologic/Lymphatic Hematologic/Lymphatic: no easy bruising
== END 2017-06-09 17:50 | disposition home or self-care (01) | DRG 641 ==
LOC: EMEROO 11:43 → 2ANU 11:43 → SUATTDRO 20:35
PROVIDERS: ADMIT Family Medicine; ATTEND Student in an Organized Health Care Education/Training Program

== ENCOUNTER 2017-09-13 12:02 | Observation (INO) ==
[2017-09-13] MEDS ORDERED: Ipratropium/Albuterol Neb 3 ML IH ONE (12:03)
[2017-09-13] MEDS ORDERED: methylPREDNISolone 125 MG/2 ML VIAL IVP ONE (12:03)
--- NOTE | 2017-09-13 12:06 | Emergency Department Note ---
Disposition Clinical Impression: Acute exacerbation of chronic obstructive airways disease, Bronchitis Disposition: Admitted As Inpatient Condition: Fair Referrals: Terrie Joseph CNP [Primary Care Provider] - Forms: ED Satisfaction Letter Time of Disposition: 13:40 SOB HPI - General Chief Complaint: ED Shortness of Breath/Dyspnea Stated Complaint: Shortness of breaths Time Seen by Provider: 09/13/17 12:03 Source: patient, EMS Limitations: no limitations Nursing Notes Reviewed: Yes Vital Signs Reviewed: Yes - History of Present Illness 57-year-old female with history COPD comes in with cough fever according to squad she is O2 dependent and her initial pulse ox was in the 80s. Blood pressure is slightly elevated but she has not been able to take her medications due to her illness. Pt Subjective Complaint: shortness of breath Onset (ago): day(s) Context: recent illness Severity: moderate Consistency/Duration: constant Improves with: bronchodilators Worsens with: exertion Known history of: COPD Associated symptoms: Reports: cough, wheezing Treatment prior to arrival: oxygen, bronchodilator Cough present: Yes Cough Description: Involuntary Cough Frequency: Intermittent - Related Data Home Medications Medication Instructions Recorded Confirmed Albuterol Neb [Proventil Neb] 2.5 mg IH TID PRN 06/09/16 06/21/17 Budesonide/Formoterol 160/4.5 2 puff IH BIDR 06/09/16 06/21/17 [Symbicort 160/4.5] Fluticasone Propionate Nasal 2 spray NS DAILY 06/09/16 06/21/17 [Flonase] Ipratropium/Albuterol Sulfate 1 puff IH QID 06/09/16 06/21/17 [Combivent Respimat Inhal [place]] Magnesium Oxide [Magnesium] 400 mg PO DAILY 06/09/16 06/21/17 Omeprazole [PriLOSEC] 20 mg PO DAILY 06/09/16 06/21/17 Paroxetine HCl [Paroxetine] 40 mg PO DAILY 06/09/16 06/21/17 Vitamin B Complex [B Complex] 1 tab PO DAILY 06/09/16 06/21/17 amLODIPine [Norvasc] 5 mg PO DAILY 06/09/16 06/21/17 Aspirin [Lo-Dose Aspirin EC] 81 mg PO DAILY 08/02/16 06/21/17 Albuterol Sulfate [Ventolin Hfa] 2 puff IH Q4H PRN 04/16/17 06/21/17 Potassium Chloride [K-Tab ER] 20 meq PO DAILY 04/16/17 06/21/17 Buspirone HCl [Buspar] 10 mg PO BID 06/08/17 06/21/17 Meloxicam [Mobic] 15 mg PO DAILY 06/08/17 06/21/17 Tiotropium [Spiriva] 1 puff IH DAILY 06/08/17 06/21/17 Fluconazole [Diflucan] 100 mg PO DAILY 06/21/17 06/21/17 Metoprolol Succinate 100 mg PO DAILY 06/21/17 06/21/17 Previous Rx's Medication Instructions Recorded Calcium Carbonate [Tums] 1,000 mg PO QID tab.chew 06/25/17 Docusate [Colace] 100 mg PO BID PRN capsule 06/25/17 Folic Acid 1 mg PO DAILY tablet 06/25/17 MOM Conc [MILK OF MAGNESIA conc] 10 ml PO DAILY PRN ud.[id number] 06/25/17 Sodium Chloride 1 gm PO BID tablet 06/25/17 Thiamine (B-1) [Vitamin B-1] 100 mg PO DAILY tablet 06/25/17 predniSONE [PredniSONE] 10 mg PO DAILY #31 tablet 06/25/17 Allergies Allergy/AdvReac Type Severity Reaction Status Date / Time No Known Allergies Allergy Verified 06/09/16 14:59 All systems ED: reviewed and negative except as stated. Constitutional: Denies: fever, chills, weakness, weight change Eyes: Denies: eye pain, eye discharge, vision change ENT ED: Denies: ear pain, throat pain, dental pain, hearing loss, epistaxis, congestion, dysphagia Cardiovascular: Denies: chest pain, palpitations, dyspnea on exertion, edema, syncope Respiratory: Reports: cough, dyspnea, wheezes. Denies: hemoptysis, stridor Gastrointestinal: Denies: abdominal pain, nausea, vomiting, diarrhea, constipation, hematemesis, melena, hematochezia Genitourinary: Denies: dysuria, frequency, hematuria, discharge Musculoskeletal: Denies: back pain, neck pain, arthralgia, myalgia Integumentary: Denies: rash, abrasion, lesions Neurological: Denies: headache, weakness, numbness, paresthesias, confusion, abnormal gait, vertigo Psychiatric: Denies: anxiety, depression, suicidal thoughts, homicidal thoughts , auditory hallucinations, visual hallucinations Endocrine: Denies: fatigue Hematological/Lymphatic: Denies: easy bleeding, easy bruising Allergic/Immunologic: Denies: facial swelling, urticaria Past Medical History - Past Medical History Medical history: Reports: COPD, hypertension, liver disease, TIA Surgical history: Reports: other Psychiatric history: Reports: anxiety, depression - Social History Smoking Status: Current every day smoker Smokeless Tobacco Status: No Alcohol use: Reports: heavy Drug use: Reports: none Physical Exam - General Limitations: no limitations General appearance: alert, in no apparent distress, appears intoxicated - Head Head exam: atraumatic, normocephalic, normal inspection - Eye Eye exam: Present: normal appearance, PERRL, EOMI - ENT ENT exam: normal exam, normal oropharynx, mucous membranes moist - Neck Neck exam: Present: normal inspection, full ROM, trachea midline - Chest Chest inspection: Present: normal inspection, symmetric chest wall rise - Respiratory Respiratory exam: Present: wheezes, accessory muscle use, prolonged expiratory phase - Cardiovascular Cardiovascular exam: Present: regular rate, normal rhythm, normal heart sounds - Abdominal Exam Abdominal exam: Present: soft, Non-Tender. Absent: tenderness, distention, guarding, rebound, rigidity - Extremities Exam Extremities exam: Present: normal inspection, full ROM. Absent: tenderness, pedal edema - Expanded Lower Extremity Exam Neurovascular/Tendon exam: Absent: motor deficit, sensory deficit, tendon deficit Gait: observed and normal - Back Exam Back exam: Present: normal inspection, full ROM. Absent: tenderness - Neurological Exam Neurological exam: Present: alert, oriented X3 - Psychiatric Psychiatric exam: Present: normal affect, normal mood - Skin Skin exam: Present: warm, dry, intact, normal color Course - Reevaluation(s) Reevaluation #1: 57-year-old with a history COPD with a productive cough of thick green sputum and increasing shortness of breath. Patient will be admitted for an exacerbation COPD and bronchitis. Time: 15:03 - Consultations Consultation #1: Discussed with haile Tomas. Time: 15:03 Vital Signs Temperature 98.9 F 09/13/17 12:02 Pulse Rate 99 09/13/17 12:02 Respiratory Rate 23 09/13/17 12:02 Blood Pressure 118/90 09/13/17 12:02 O2 Sat by Pulse Oximetry 98 09/13/17 12:02 Temperature 98.9 F 09/13/17 12:02 Pulse Rate 97 09/13/17 13:46 Respiratory Rate 20 09/13/17 13:46 Blood Pressure 122/87 09/13/17 13:46 O2 Sat by Pulse Oximetry 97 09/13/17 13:46 Oxygen Delivery Oxygen Delivery Nasal Cannula Shortness of Breath/Dyspnea - Lab Data Result diagrams: 09/13/17 13:30 09/13/17 12:45 Lab Results 09/13/17 09/13/17 09/13/17 Range/Units 12:45 13:30 13:30 WBC 17.4 H (4.3-11.1) K/mcL RBC 4.30 (3.82-4.97) M/mcL Hgb 13.6 (11.5-15.4) g/dL Hct 40.2 (35.3-44.9) % MCV 93.5 (83.0-100.0) fL MCH 31.6 (28.0-33.3) pg MCHC 33.8 (31.6-35.5) g/dL RDW 14.0 (11.5-14.5) % Plt Count TNP MPV 12.1 (9.4-12.4) fL Immature Gran % 0.7 (0-4) % Seg Neutrophils % 86.0 % Lymphocytes % 5.3 % Monocytes % 7.2 % Eosinophils % 0.5 % Basophils % 0.3 % Neutrophils # 15.0 H (1.6-8.9) K/mcL Lymphocytes # 0.9 (0.6-4.6) K/mcL Monocytes # 1.3 (0.0-1.3) K/mcL Eosinophils # 0.1 (0.0-0.6) K/mcL Basophils # 0.1 (0.0-0.2) K/mcL Plt Count ,Citrate (150-600) Immature Plt Fraction 28.9 H (1.1-6.1) % Sodium 125 L (136-145) mEq/L Potassium 3.5 (3.5-5.1) mEq/L Chloride 94 L (98-107) mEq/L Carbon Dioxide 22 L (23-29) mEq/L BUN 3 L (6-20) mg/dL Creatinine 0.41 L (0.60-1.20) mg/dL Est GFR ( Amer) > 60 (> 60) Est GFR (Non-Af Amer) > 60 (> 60) BUN/Creatinine Ratio 7 (6-26) Glucose 100 (70-105) mg/dL Calculated Osmolality 257 L (280-300) Calcium 7.9 L (8.6-10.3) mg/dL B-Natriuretic Peptide 323 H (Less than 100) pg/mL Specimen Rejected 09/13/17 09/13/17 Range/Units 13:30 14:17 WBC (4.3-11.1) K/mcL RBC (3.82-4.97) M/mcL Hgb (11.5-15.4) g/dL Hct (35.3-44.9) % MCV (83.0-100.0) fL MCH (28.0-33.3) pg MCHC (31.6-35.5) g/dL RDW (11.5-14.5) % Plt Count MPV 9.6 (9.4-12.4) fL Immature Gran % (0-4) % Seg Neutrophils % % Lymphocytes % % Monocytes % % Eosinophils % % Basophils % % Neutrophils # (1.6-8.9) K/mcL Lymphocytes # (0.6-4.6) K/mcL Monocytes # (0.0-1.3) K/mcL Eosinophils # (0.0-0.6) K/mcL Basophils # (0.0-0.2) K/mcL Plt Count ,Citrate 205.7 (150-600) Immature Plt Fraction (1.1-6.1) % Sodium (136-145) mEq/L Potassium (3.5-5.1) mEq/L Chloride (98-107) mEq/L Carbon Dioxide (23-29) mEq/L BUN (6-20) mg/dL Creatinine (0.60-1.20) mg/dL Est GFR ( Amer) (> 60) Est GFR (Non-Af Amer) (> 60) BUN/Creatinine Ratio (6-26) Glucose (70-105) mg/dL Calculated Osmolality (280-300) Calcium (8.6-10.3) mg/dL B-Natriuretic Peptide (Less than 100) pg/mL Specimen Rejected Volume - EKG Data EKG attestation: Yes I reviewed and interpreted this EKG. EKG shows normal: Reports: sinus rhythm Rate: Reports: normal Rhythm: Reports: NSR Interpretation: Reports: no acute changes
[2017-09-13 13:39] LABS: BUN/Creatinine Ratio 7 (6-26); Blood Urea Nitrogen 3 mg/dL (6-20); Calcium 7.9 mg/dL (8.6-10.3); Carbon Dioxide 22 mEq/L (23-29); Chloride 94 mEq/L (98-107); Glucose 100 mg/dL (70-105); Osmolality,Calculated 257 (280-300); Potassium 3.5 mEq/L (3.5-5.1); Sodium 125 mEq/L (136-145); eGFR For African Americans > 60 (> 60); eGFR For Non-African Americans > 60 (> 60)
[2017-09-13] MEDS ORDERED: Levofloxacin 500 MG/100 ML 500 MG/100 ML BAG IVPB ONE (13:39)
[2017-09-13 13:55] LABS: Basophils % 0.3 %; Eosinophils % 0.5 %; Hemoglobin 13.6 g/dL (11.5-15.4); Mean Corpuscular Volume 93.5 fL (83.0-100.0)
[2017-09-13 13:57] LABS: Basophils # 0.1 K/mcL (0.0-0.2); Eosinophils # 0.1 K/mcL (0.0-0.6); Hematocrit 40.2 % (35.3-44.9); Immature Granulocytes % 0.7 % (0-4); Immature Platelets 28.9 % (1.1-6.1); Lymphocytes # 0.9 K/mcL (0.6-4.6); Lymphocytes % 5.3 %; Mean Corpuscular HGB Conc 33.8 g/dL (31.6-35.5); Mean Corpuscular Hemoglobin 31.6 pg (28.0-33.3); Mean Platelet Volume 12.1 fL (9.4-12.4); Monocytes # 1.3 K/mcL (0.0-1.3); Monocytes % 7.2 %
[2017-09-13 14:16] LABS: Mean Platelet Volume 9.6 fL (9.4-12.4)
[2017-09-13] MEDS ORDERED: Naloxone 0.4 MG/ML INJ IVP PRN (15:40)
[2017-09-13] MEDS ORDERED: Ondansetron 4 MG/2 ML VIAL IVP PRN (15:40)
[2017-09-13] MEDS ORDERED: Albuterol 2.5 MG/3 ML NEBULIZER IH PRN (15:43)
--- NOTE | 2017-09-13 16:01 | Internal Med History&Physical ---
Date of Encounter: 09/13/17 Time of Encounter: 15:46 Assessment and Plan (1) Acute exacerbation of chronic obstructive pulmonary disease (COPD) Current visit: Yes Status: Acute Check Influenza Ag CXR is unremarkable with no infiltrates Complains of cough with green phlegm No fever or chills Continue treatment with duonebs, prednisone, Levaquin, albuterol q2h prn Continue O2 supplement (2) Chronic respiratory failure with hypoxia Current visit: Yes Status: Chronic Continue O2 at home dose (3) Leukocytosis Current visit: Yes Status: Acute Possibly secondary to steroid use Patient's home bottles contained one with prednisone whic patient states she has been using She is afebrile, no GI or urinary symptoms Will continue to observe Qualifiers: Leukocytosis type: unspecified Qualified Code(s): D72.829 - Elevated white blood cell count, unspecified (4) Alcohol abuse Current visit: Yes Status: Chronic Chronic, encourage cessation Monitor for alcohol withdrawal Last drink 3 days ago per patient (5) Hepatic steatosis Current visit: Yes Status: Chronic Chronic, stable, check LFTs (6) Hypertension Current visit: Yes Status: Chronic Continue home meds Qualifiers: Hypertension type: essential hypertension Qualified Code(s): I10 - Essential (primary) hypertension (7) Hyponatremia Current visit: Yes Status: Chronic chronic Na is at baseline, contnue to monitor Possibly secondary to beer potomania (8) Tobacco dependence Current visit: Yes Status: Chronic NRT Internal Medicine - H&P: HPI Chief complaint: Shortness of breath Admitted From: Home Plans for Post Hospital Care: Home History of present illness: Ms. Rodriguez is a 57 year old female with PMH of HTN, Alcohol abuse with hepatic steatosis, Chronic resp failure secondary to COPD on home O2, Tobacco abuse She presents to the ER with complains of 2 weeks hx of worsening cough with greenish phlegm, said to be different from her baseline, she denied fever or chills, recent travels. Her boyfriend had been sick with fly-like symptoms. She also reports watery rhinorrhea, joint aches and generalized fatigue She denies nausea, vomiting or diarrhea, she has pleuritic chest pain when she coughs She denied orthopnea, PND , leg swelling. her O2 requirement has not changed She denies any other symptoms No change in urinary or bowel habits She has a hx of tobacco abuse and alcohol abuse, she still smokes and states her last drink was "cuople of beers three days ago" Past Med Surg Social Fam HX - Past Medical History Medical history: COPD, hypertension, liver disease, TIA Psychiatric history: anxiety, depression - Past Surgical History Surgical History: other - Social History Smoking Status: Current every day smoker Smokeless Tobacco Status: No Alcohol use: heavy Drug use: none - Family History Brother Living Status: Hx Family Cancer: Yes (Lung) Internal Medicine - H&P: Meds Albuterol Neb [Proventil Neb] 2.5 mg IH TID PRN 06/09/16 [History] Budesonide/Formoterol 160/4.5 [Symbicort 160/4.5] 2 puff IH BIDR 06/09/16 [ History] Fluticasone Propionate Nasal [Flonase] 2 spray NS DAILY 06/09/16 [History] Ipratropium/Albuterol Sulfate [Combivent Respimat Inhal [place]] 1 puff IH QID [History] Magnesium Oxide [Magnesium] 400 mg PO DAILY 06/09/16 [History] Omeprazole [PriLOSEC] 20 mg PO DAILY 06/09/16 [History] Paroxetine HCl [Paroxetine] 40 mg PO DAILY 06/09/16 [History] amLODIPine [Norvasc] 5 mg PO DAILY 06/09/16 [History] Aspirin [Lo-Dose Aspirin EC] 81 mg PO DAILY 08/02/16 [History] Albuterol Sulfate [Ventolin Hfa] 2 puff IH Q4H PRN 04/16/17 [History] Potassium Chloride [K-Tab ER] 20 meq PO DAILY 04/16/17 [History] Buspirone HCl [Buspar] 10 mg PO BID 06/08/17 [History] Meloxicam [Mobic] 15 mg PO DAILY 06/08/17 [History] Metoprolol Succinate 100 mg PO DAILY 06/21/17 [History] Cetirizine HCl [Zyrtec] 10 mg PO DAILY 09/13/17 [History] Guaifenesin [Mucinex] 600 mg PO Q12H PRN 09/13/17 [History] Oxygen 2 l NS AD 09/13/17 [History] 3 Allergy/AdvReac Type Severity Reaction Status Date / Time No Known Allergies Allergy Verified 06/09/16 14:59 All Systems PM: A 10-system review of systems was performed and is negative for pertinent findings except as documented above in the HPI. - Constitutional Constitutional: malaise, no chills, no fever(s), no night sweats - EENT Eyes: no change in vision, no discharge, no pain, no photophobia Nose, mouth and throat: post-nasal drip, sore throat - Cardiovascular Cardiovascular ROS IM: chest pain, no diaphoresis, no dyspnea, no lightheadedness, no palpitations, no syncope - Respiratory Respiratory: as per HPI - Gastrointestinal Gastrointestinal: as per HPI - Genitourinary Genitourinary: as per HPI - Musculoskeletal Musculoskeletal ROS IM: myalgias - Neurological Neurological ROS: no confusion, no convulsions, no focal weakness, no numbness, no tingling, no tremor(s) - Hematologic/Lymphatic Hematologic/Lymphatic: no easy bruising - Constitutional Vitals: Temp Pulse Resp BP Pulse Ox 98.9 F 97 20 137/87 97 09/13/17 12:02 09/13/17 13:46 09/13/17 15:25 09/13/17 15:25 09/13/17 13:46 General appearance: Present: A&O X 3, pleasant, no acute distress - Head Head exam: Present: atraumatic, normocephalic - Eye Eye exam: Present: PERRL, conjuntiva pink, sclera anicteric Pupils: Present: PERRL - Neck Neck exam general surgery: Present: supple, trachea midline. Absent: lymphadenopathy - Respiratory Respiratory exam: Present: wheezes (bilateral diffuse expiratory wheezes) - Cardiovascular Cardiovascular exam: Present: RRR, +S1, +S2. Absent: diastolic murmur, gallop, rubs, systolic murmur - GI/Abdominal GI/Abdominal exam: Present: normal bowel sounds, soft, no peritoneal signs. Absent: distended, tenderness - Extremities Exam Extremities exam: Present: warm, radial pulses palpable and symmetrical. Absent : calf tenderness, cyanotic, pedal edema - Neurological Exam Neurological exam: Present: alert, CN II-XII intact, oriented X3, no focal deficits. Absent: pronater drift, facial droop, speech deficit - Skin Skin exam: Present: dry, intact Internal Med - H&P Results - Labs CBC & Chem 7: 09/13/17 13:30 09/13/17 12:45
[2017-09-13] MEDS ORDERED: Ipratropium/Albuterol Neb 3 ML ONE (16:32)
[2017-09-13] MEDS: Ipratropium/Albuterol Neb 3 ML IH SCH ×2 (16:48→22:56)
[2017-09-13] MEDS: *HR* Heparin 5,000 UNIT/ML VIAL SQ SCH (20:45)
[2017-09-13] MEDS: Acetaminophen 325 MG TABLET PO PRN (20:45)
[2017-09-14 01:42] LABS: Basophils % 0.1 %; Mean Corpuscular HGB Conc 33.8 g/dL (31.6-35.5); Mean Corpuscular Hemoglobin 31.4 pg (28.0-33.3); Mean Platelet Volume 11.9 fL (9.4-12.4); Red Cell Distribution Width 13.8 % (11.5-14.5)
[2017-09-14 01:43] LABS: Hemoglobin 11.5 g/dL (11.5-15.4); Immature Granulocytes % 0.7 % (0-4); Immature Platelets 28.8 % (1.1-6.1); Lymphocytes # 0.6 K/mcL (0.6-4.6); Lymphocytes % 3.4 %; Mean Corpuscular Volume 92.9 fL (83.0-100.0); Monocytes # 0.3 K/mcL (0.0-1.3); Monocytes % 1.9 %; Neutrophils # 15.9 K/mcL (1.6-8.9); Platelet Count 116 K/mcL (140-400); Red Blood Count 3.66 M/mcL (3.82-4.97); Segmented Neutrophils % 93.9 %
[2017-09-14 01:55] LABS: Albumin 2.8 g/dL (3.5-5.7); Albumin/Globulin Ratio 0.8 (1.1-2.2); Bilirubin,Direct 0.3 mg/dL (0.0-0.2); Bilirubin,Indirect 0.4 mg/dL (0.0-1.2); Bilirubin,Total 0.7 mg/dL (0.3-1.0); Globulin 3.4 g/dL (2.4-3.5); Total Protein 6.2 g/dL (6.4-8.9)
[2017-09-14 01:58] LABS: BUN/Creatinine Ratio 10 (6-26); Blood Urea Nitrogen 5 mg/dL (6-20); Calcium 7.6 mg/dL (8.6-10.3); Carbon Dioxide 25 mEq/L (23-29); Chloride 86 mEq/L (98-107); Glucose 131 mg/dL (70-105); Osmolality,Calculated 249 (280-300); Potassium 3.4 mEq/L (3.5-5.1); Sodium 120 mEq/L (136-145); eGFR For African Americans > 60 (> 60); eGFR For Non-African Americans > 60 (> 60)
[2017-09-14] MEDS ORDERED: 0.9 % Sodium Chloride 1,000 ML IVC SCH (02:15)
[2017-09-14] MEDS: 0.9 % Sodium Chloride w KCl 20 MEQ/1,000 ML MLS IVC SCH ×2 (02:22→16:55)
[2017-09-14] MEDS: Ipratropium/Albuterol Neb 3 ML IH SCH ×4 (04:52→23:32)
[2017-09-14] MEDS: *HR* Heparin 5,000 UNIT/ML VIAL SQ SCH ×3 (05:35→21:26)
[2017-09-14] MEDS: Aspirin Enteric Coated 81 MG Tablet PO SCH (09:04)
[2017-09-14] MEDS: Metoprolol XL (24 HR) Succ 50 MG TAB.ER.24H PO SCH (09:04)
[2017-09-14] MEDS: levoFLOXacin 500 MG TABLET PO SCH (09:04)
[2017-09-14] MEDS: Magnesium Oxide 400 MG TABLET PO SCH (09:05)
[2017-09-14] MEDS: amLODIPine 5 MG TABLET PO SCH (09:05)
[2017-09-14] MEDS: Loratadine 10 MG TABLET PO SCH (09:05)
[2017-09-14] MEDS: predniSONE 20 MG TABLET PO SCH (09:05)
[2017-09-14] MEDS: Nicotine 21 MG PATCH.TD24 TD SCH (09:05)
[2017-09-14] MEDS: Fluticasone Propionate Nasal 50 MCG/SPRAY BOTTLE NS SCH (09:08)
--- NOTE | 2017-09-14 12:36 | Internal Med Progress Note ---
<Ke Adames - Last Filed: 09/14/17 14:05> Date of Encounter: 09/14/17 Time of Encounter: 07:35 - Assessment and plan (1) Chronic respiratory failure with hypoxia Current Visit: Yes Status: Chronic Assessment and plan: Patient states she is requiring more oxygen than usual at home. Does maintain adequate oxygen saturation on room air here in the hospital. Patient chronic respiratory failure with hypoxia is due to her advanced COPD and current exacerbation thereof. Current exacerbation likely due to bronchitis as no radiographic findings suggest pneumonia. Influenza has been negative We will continue treatment with DuoNeb's Continue prednisone Continue Levaquin And albuterol every 2 hours when necessary Supplemental O2 as necessary, wean as tolerated (patient on room air currently) (2) Acute exacerbation of chronic obstructive pulmonary disease (COPD) Current Visit: Yes Status: Acute Assessment and plan: Plan as above (3) Alcohol abuse Current Visit: Yes Status: Chronic Assessment and plan: Per patient her last drink was 3 days ago, this is a chronic issue. Monitor for potential alcohol withdrawal Consider IV Ativan if needed (4) Hypertension Current Visit: Yes Status: Chronic Assessment and plan: Continue home medications Qualifiers: Hypertension type: essential hypertension Qualified Code(s): I10 - Essential (primary) hypertension (5) Hyponatremia Current Visit: Yes Status: Chronic Assessment and plan: Patient has chronic hyponatremia, likely due to patient chronic alcoholism. Though patient sodium only slightly lower than baseline Consider supplemental salt with food or salt tablets (6) Leukocytosis Current Visit: Yes Status: Acute Assessment and plan: Likely reactive on account of bronchitis and steroids Continue to monitor daily CBC Plan as above Qualifiers: Leukocytosis type: unspecified Qualified Code(s): D72.829 - Elevated white blood cell count, unspecified (7) Tobacco dependence Current Visit: Yes Status: Chronic Assessment and plan: Encourage cessation Nicotine patch when necessary (8) DVT prophylaxis Current Visit: No Status: Acute Assessment and plan: 5000 units heparin subcutaneous 3 times a day - Subjective Interval history: 57-year-old female with prior medical history of COPD, hypertension, liver disease, chronic alcoholism, and repeated hospitalizations 2 views aspiration COPD and pneumonia. Patient seen and examined at bedside. She appears to be sitting comfortably and maintaining adequate oxygen saturations on room air. She states she has had improvement in her ability to breathe since admission to the hospital on account of breathing treatments and steroids. Although she states she was having fever/chills prior to admission, she has been afebrile so far. She has been coughing productive of thick yellow sputum. - Constitutional Vitals: Temp Pulse Resp BP Pulse Ox 99.0 F 90 18 162/93 98 09/14/17 11:09 09/14/17 11:09 09/14/17 11:09 09/14/17 11:09 09/14/17 11:09 General appearance: Present: A&O X 3, pleasant, no acute distress Exam: General: Cooperative, pleasant, no acute distress, alert and oriented 3, answers questions appropriately HEENT: Normocephalic, atraumatic, neck supple, trachea midline, Conjunctiva pink , sclera anicteric, no cervical LAD palpated, oral mucosa moist, no orophargeal erythema or exudates Respiratory: No accessory muscle usage, bilateral wheeze on auscultation, rhonchi present Cardiovascular: Regular rate and rhythm, S1 and S2 present, no murmurs/rubs/ gallops/clicks appreciated GI/abdominal: Nondistended, nontender, soft, normal bowel sounds, no peritoneal signs Extremities: No calf tenderness, noncyanotic, no pedal edema appreciated, warm, lower extremity pulses palpable and symmetrical Neurological: Alert and oriented 3, no facial droop, no focal deficits Skin: Dry, intact, normal color Internal Medicine: Result - Labs CBC & Chem 7: 09/14/17 01:28 09/14/17 08:54 Labs: Short CBC 09/14/17 Range/Units 01:28 WBC 16.9 H (4.3-11.1) K/mcL Hgb 11.5 D (11.5-15.4) g/dL Hct 34.0 L (35.3-44.9) % Plt Count 116 L (140-400) K/mcL Neutrophils # 15.9 H (1.6-8.9) K/mcL BMP 09/14/17 09/14/17 09/14/17 01:28 05:27 08:09 Sodium 120 L* 123 L 122 L Potassium 3.4 L Chloride 86 L Carbon Dioxide 25 BUN 5 L Creatinine 0.50 L Glucose 131 H Calcium 7.6 L 09/14/17 08:54 Sodium 122 L Potassium Chloride Carbon Dioxide BUN Creatinine Glucose Calcium Cardiac Enzymes 09/13/1709/14/18 Range/Units 21:13 01:28 Troponin I < 0.03 < 0.03 (< 0.04) ng/mL Liver Function 09/14/17 Range/Units 01:28 Total Bilirubin 0.7 (0.3-1.0) mg/dL Direct Bilirubin 0.3 H (0.0-0.2) mg/dL AST 17 (13-39) Units/L ALT 12 (7-52) Units/L Alkaline Phosphatase 235 H (34-104) Units/L Albumin 2.8 L (3.5-5.7) g/dL Consult Discharge Plan - Plan Referrals: Terrie Joseph CNP [Primary Care Provider] - 09/20/17 2:00 pm <Alfredito Romero - Last Filed: 09/14/17 17:23> Date of Encounter: 09/14/17 - Assessment and plan (1) Acute exacerbation of chronic obstructive pulmonary disease (COPD) Current Visit: Yes Status: Acute (2) Chronic respiratory failure with hypoxia Current Visit: Yes Status: Chronic (3) Leukocytosis Current Visit: Yes Status: Acute Qualifiers: Leukocytosis type: unspecified Qualified Code(s): D72.829 - Elevated white blood cell count, unspecified (4) Alcohol abuse Current Visit: Yes Status: Chronic (5) Hepatic steatosis Current Visit: Yes Status: Chronic (6) Hypertension Current Visit: Yes Status: Chronic Qualifiers: Hypertension type: essential hypertension Qualified Code(s): I10 - Essential (primary) hypertension (7) Hyponatremia Current Visit: Yes Status: Chronic (8) Tobacco dependence Current Visit: Yes Status: Chronic - Constitutional Vitals: Temp Pulse Resp BP Pulse Ox 99.0 F 95 18 136/83 96 09/14/17 15:23 09/14/17 15:23 09/14/17 15:23 09/14/17 15:23 09/14/17 15:23 Internal Medicine: Result - Labs CBC & Chem 7: 09/14/17 01:28 09/14/17 08:54 Labs: Short CBC 09/14/17 Range/Units 01:28 WBC 16.9 H (4.3-11.1) K/mcL Hgb 11.5 D (11.5-15.4) g/dL Hct 34.0 L (35.3-44.9) % Plt Count 116 L (140-400) K/mcL Neutrophils # 15.9 H (1.6-8.9) K/mcL BMP 09/14/17 09/14/17 09/14/17 01:28 05:27 08:09 Sodium 120 L* 123 L 122 L Potassium 3.4 L Chloride 86 L Carbon Dioxide 25 BUN 5 L Creatinine 0.50 L Glucose 131 H Calcium 7.6 L 09/14/17 08:54 Sodium 122 L Potassium Chloride Carbon Dioxide BUN Creatinine Glucose Calcium Cardiac Enzymes 09/13/17 09/14/17 Range/Units 21:13 01:28 Troponin I < 0.03 < 0.03 (< 0.04) ng/mL Liver Function 09/14/17 Range/Units 01:28 Total Bilirubin 0.7 (0.3-1.0) mg/dL Direct Bilirubin 0.3 H (0.0-0.2) mg/dL AST 17 (13-39) Units/L ALT 12 (7-52) Units/L Alkaline Phosphatase 235 H (34-104) Units/L Albumin 2.8 L (3.5-5.7) g/dL - Impressions Impressions Echocardiogram 09/14/17 16:12 Impressions: LVEF 55-60%. Normal LV chamber size, wall thickness and function. Mild left ventricular diastolic dysfunction. Normal right ventricular structure and function. Mild pulmonary hypertension. No significant valvular dysfunction. Left Ventricular Wall Motion: Rest Echo Findings All wall segments showed normal motion. Findings: Study Quality * Technically adequate exam. ECG Findings * Normal sinus rhythm. Left Ventricle * LVEF 55-60%. * Normal LV chamber size, wall thickness and function. * Mild left ventricular diastolic dysfunction. Right Ventricle * Normal right ventricular structure and function. Left Atrium * Mildly dilated left atrium. Right Atrium * Normal right atrial size. Interatrial Septum * Interatrial septum not well evaluated. Aortic Valve * Aortic valve not well visualized. * Trace aortic regurgitation. * No aortic stenosis. Mitral Valve * Normal mitral valve structure and function. * Trace mitral regurgitation. * No mitral stenosis. Tricuspid Valve * Normal tricuspid valve structure and function. * Trace tricuspid regurgitation. * Mild pulmonary hypertension. Pulmonic Valve * Normal pulmonic valve structure and function. * No pulmonic regurgitation. Aorta * Normally sized aortic root. Pericardium * The pericardium appears normal. IVC * Normal IVC dimensions and inspiratory collapse. Pulmonary Artery * Normal visualized portions of the main pulmonary artery. - Attending Attestation I have seen and examined this patient independently on 09/14/17 Admitted for COPDE She feels some improvement no new complains ECHO resulted and unremarkable, EF WNL, Mild Pulm HTN, no WMA CBC and Chem unremarkable Continue current care Monitor for alcohol withdrawal Rest as in resident physician's documentation
--- NOTE | 2017-09-14 16:48 | Electrocardiograph Report ---
[place] [id number] Test Date: 2017-09-13 Pat Name: Montserrat Rodriguez Department: 102 Room: [facility] Gender: F [employer]: : 1960 Requested By: Supa Abad Order Number: [id number] Reading MD: Raul Pascal DO Measurements Intervals [place] Rate: 96 P: 72 ND: 182 QRS: 75 QRSD: 98 T: 70 QT: 362 QTc: 416 Interpretive Statements SINUS RHYTHM Electronically Signed On 09-14-2017 16:47:02 EST by Raul Pascal DO
[2017-09-14] MEDS: Acetaminophen 325 MG TABLET PO PRN (21:25)
[2017-09-15] MEDS: Ipratropium/Albuterol Neb 3 ML IH SCH ×4 (04:08→22:13)
[2017-09-15] MEDS: *HR* Heparin 5,000 UNIT/ML VIAL SQ SCH ×3 (05:49→21:05)
[2017-09-15] MEDS: 0.9 % Sodium Chloride w KCl 20 MEQ/1,000 ML MLS IVC SCH ×2 (05:54→19:33)
[2017-09-15 07:13] LABS: Basophils % 0.1 %; Eosinophils % 0.1 %; Lymphocytes % 13.8 %; Mean Corpuscular Volume 93.7 fL (83.0-100.0)
[2017-09-15 07:15] LABS: Hematocrit 35.8 % (35.3-44.9); Hemoglobin 11.9 g/dL (11.5-15.4); Immature Granulocytes % 1.3 % (0-4); Immature Platelets 30.9 % (1.1-6.1); Mean Corpuscular HGB Conc 33.2 g/dL (31.6-35.5); Mean Corpuscular Hemoglobin 31.2 pg (28.0-33.3); Mean Platelet Volume 12.5 fL (9.4-12.4); Monocytes % 7.5 %; Neutrophils # 10.3 K/mcL (1.6-8.9); Red Blood Count 3.82 M/mcL (3.82-4.97); Segmented Neutrophils % 77.2 %
[2017-09-15 07:38] LABS: BUN/Creatinine Ratio 12 (6-26); Blood Urea Nitrogen 5 mg/dL (6-20); Calcium 7.8 mg/dL (8.6-10.3); Carbon Dioxide 25 mEq/L (23-29); Chloride 94 mEq/L (98-107); Glucose 109 mg/dL (70-105); Magnesium 1.5 mg/dL (1.6-2.6); Osmolality,Calculated 260 (280-300); Phosphorous 1.6 mg/dL (2.7-4.5); Potassium 4.3 mEq/L (3.5-5.1); Sodium 126 mEq/L (136-145); eGFR For African Americans > 60 (> 60); eGFR For Non-African Americans > 60 (> 60)
[2017-09-15] MEDS: levoFLOXacin 500 MG TABLET PO SCH (08:33)
[2017-09-15] MEDS: Acetaminophen 325 MG TABLET PO PRN (08:33)
[2017-09-15] MEDS: predniSONE 20 MG TABLET PO SCH (08:34)
[2017-09-15] MEDS: Metoprolol XL (24 HR) Succ 50 MG TAB.ER.24H PO SCH (08:34)
[2017-09-15] MEDS: Loratadine 10 MG TABLET PO SCH (08:34)
[2017-09-15] MEDS: Aspirin Enteric Coated 81 MG Tablet PO SCH (08:34)
[2017-09-15] MEDS: Magnesium Oxide 400 MG TABLET PO SCH (08:34)
[2017-09-15] MEDS: amLODIPine 5 MG TABLET PO SCH (08:35)
[2017-09-15] MEDS: Nicotine 21 MG PATCH.TD24 TD SCH (08:35)
[2017-09-15] MEDS: Fluticasone Propionate Nasal 50 MCG/SPRAY BOTTLE NS SCH (08:35)
[2017-09-15 08:46] LABS: Mean Platelet Volume 9.6 fL (9.4-12.4)
[2017-09-15 08:49] LABS: Lymphocytes # 1.9 K/mcL (0.6-4.6)
[2017-09-15] MEDS ORDERED: Potassium Phosphate 44 MEQ in 0.9 % Sodium Chloride 250 ML IVPB ONE (12:51)
--- NOTE | 2017-09-15 12:55 | Internal Med Progress Note ---
Date of Encounter: 09/15/17 Time of Encounter: 12:52 - Assessment and plan (1) Acute exacerbation of chronic obstructive airways disease Current Visit: Yes Status: Acute Assessment and plan: Patient is admitted with the acute exacerbation of chronic obstructive pulmonary disease. Patient is presently on oral levofloxacin. Patient is on oral prednisone. Patient is on inhaled bronchodilators. Patient is responding well to the treatment. Her white count is trending down. Her blood culture is negative so far. Influenza test is negative. Plan: We will continue the same treatment for now. If the [facility] count is trending downwards tomorrow then probably she can go home. (2) Hypophosphatemia Current Visit: Yes Status: Acute Assessment and plan: Noted that patient has a phosphorus of 1.6. We will replace sodium phosphate (3) Hypertension Current Visit: Yes Status: Chronic Assessment and plan: Patient's blood pressure is within acceptable range. Qualifiers: Hypertension type: essential hypertension Qualified Code(s): I10 - Essential (primary) hypertension (4) Hyponatremia Current Visit: Yes Status: Chronic Assessment and plan: Patient has chronic hyponatremia, likely due to patient chronic alcoholism. Though patient sodium only slightly lower than baseline Consider supplemental salt with food or salt tablets - Subjective Interval history: Patient seen and examined. chart reviewed. patient is comfortably lying in bed. Patient denies chest pain, shortness of breath, nausea, vomiting, abdominal pain , dizziness or diarrhea - Constitutional Vitals: Temp Pulse Resp BP Pulse Ox 97.8 F 71 19 144/85 90 09/15/17 11:07 09/15/17 11:07 09/15/17 11:07 09/15/17 11:07 09/15/17 11:07 General appearance: Present: A&O X 3, pleasant, no acute distress - Head Head exam: Present: atraumatic, normocephalic - Eye Eye exam: Present: PERRL, conjuntiva pink, sclera anicteric Pupils: Present: PERRL - Neck Neck exam general surgery: Present: supple, trachea midline. Absent: lymphadenopathy - Respiratory Respiratory exam: Present: CTAB. Absent: accessory muscle use, rales, rhonchi, wheezes - Cardiovascular Cardiovascular exam: Present: RRR, +S1, +S2. Absent: diastolic murmur, gallop, rubs, systolic murmur - GI/Abdominal GI/Abdominal exam: Present: normal bowel sounds, soft, no peritoneal signs. Absent: distended, tenderness - Extremities Exam Extremities exam: Present: warm, radial pulses palpable and symmetrical. Absent : calf tenderness, cyanotic, pedal edema - Neurological Exam Neurological exam: Present: CN II-XII intact, oriented X3, no focal deficits. Absent: pronater drift, facial droop, speech deficit - Skin Skin exam: Present: dry, intact Internal Medicine: Result - Labs CBC & Chem 7: 09/15/17 06:12 09/15/17 06:12 Labs: Short CBC 09/15/17 Range/Units 06:12 WBC 13.4 H (4.3-11.1) K/mcL Hgb 11.9 (11.5-15.4) g/dL Hct 35.8 (35.3-44.9) % Plt Count TNP Neutrophils # 10.3 H (1.6-8.9) K/mcL BMP 09/15/17 06:12 Sodium 126 L Potassium 4.3 Chloride 94 L Carbon Dioxide 25 BUN 5 L Creatinine 0.41 L Glucose 109 H Calcium 7.8 L - Impressions Impressions Echocardiogram 09/14/17 16:12 Impressions: LVEF 55-60%. Normal LV chamber size, wall thickness and function. Mild left ventricular diastolic dysfunction. Normal right ventricular structure and function. Mild pulmonary hypertension. No significant valvular dysfunction. Left Ventricular Wall Motion: Rest Echo Findings All wall segments showed normal motion. Findings: Study Quality * Technically adequate exam. ECG Findings * Normal sinus rhythm. Left Ventricle * LVEF 55-60%. * Normal LV chamber size, wall thickness and function. * Mild left ventricular diastolic dysfunction. Right Ventricle * Normal right ventricular structure and function. Left Atrium * Mildly dilated left atrium. Right Atrium * Normal right atrial size. Interatrial Septum * Interatrial septum not well evaluated. Aortic Valve * Aortic valve not well visualized. * Trace aortic regurgitation. * No aortic stenosis. Mitral Valve * Normal mitral valve structure and function. * Trace mitral regurgitation. * No mitral stenosis. Tricuspid Valve * Normal tricuspid valve structure and function. * Trace tricuspid regurgitation. * Mild pulmonary hypertension. Pulmonic Valve * Normal pulmonic valve structure and function. * No pulmonic regurgitation. Aorta * Normally sized aortic root. Pericardium * The pericardium appears normal. IVC * Normal IVC dimensions and inspiratory collapse. Pulmonary Artery * Normal visualized portions of the main pulmonary artery. Consult Discharge Plan - Plan Referrals: Terrie Joseph, DOROTHEA [Primary Care Provider] - 09/20/17 2:00 pm
[2017-09-15] MEDS ORDERED: Sodium Phosphate 30 MMOL in D5% in Water 100 ML IVPB ONE (13:02)
[2017-09-15] MEDS ORDERED: Menthol 9.1 MG LOZENGE PO PRN (17:14)
[2017-09-15] MEDS ORDERED: ALPRAZolam 0.5 MG TABLET PO ONE (21:00)
[2017-09-16] MEDS: Ipratropium/Albuterol Neb 3 ML IH SCH ×2 (04:18→10:21)
[2017-09-16 06:00] LABS: Basophils % 0.2 %; Eosinophils % 0.3 %; Mean Corpuscular Volume 93.7 fL (83.0-100.0); Red Cell Distribution Width 14.2 % (11.5-14.5)
[2017-09-16 06:02] LABS: Hemoglobin 10.3 g/dL (11.5-15.4); Lymphocytes # 2.6 K/mcL (0.6-4.6); Lymphocytes % 26.6 %; Mean Corpuscular HGB Conc 33.2 g/dL (31.6-35.5); Mean Corpuscular Hemoglobin 31.1 pg (28.0-33.3); Monocytes # 0.9 K/mcL (0.0-1.3); Monocytes % 9.2 %; Neutrophils # 6.2 K/mcL (1.6-8.9); Nucleated Red Blood Cells 0.4 /100 WBC (0); Red Blood Count 3.31 M/mcL (3.82-4.97); Segmented Neutrophils % 62.7 %
[2017-09-16 06:13] LABS: BUN/Creatinine Ratio 13 (6-26); Blood Urea Nitrogen 5 mg/dL (6-20); Calcium 7.5 mg/dL (8.6-10.3); Carbon Dioxide 27 mEq/L (23-29); Chloride 96 mEq/L (98-107); Glucose 138 mg/dL (70-105); Magnesium 1.7 mg/dL (1.6-2.6); Osmolality,Calculated 267 (280-300); Phosphorous 2.2 mg/dL (2.7-4.5); Potassium 3.5 mEq/L (3.5-5.1); Sodium 129 mEq/L (136-145); eGFR For African Americans > 60 (> 60); eGFR For Non-African Americans > 60 (> 60)
[2017-09-16] MEDS: *HR* Heparin 5,000 UNIT/ML VIAL SQ SCH (06:40)
[2017-09-16 07:38] VITALS: BP 152/83
--- NOTE | 2017-09-16 07:56 | Discharge Summary ---
Date of Encounter: 09/25/17 Time of Encounter: 07:51 - Discharge Diagnosis (1) Acute exacerbation of chronic obstructive airways disease Priority: Primary Status: Acute (2) Hypophosphatemia Priority: Primary Status: Acute (3) Hypertension Priority: Secondary Status: Chronic Qualifiers: Hypertension type: essential hypertension Qualified Code(s): I10 - Essential (primary) hypertension (4) Hyponatremia Priority: Secondary Status: Chronic - Discharge Medications Prescriptions: levoFLOXacin [Levaquin] 500 mg PO DAILY #3 tablet Nicotine Patch [Nicoderm] 21 mg TD DAILY #7 patch.td24 Phos-NaK [Neutra-Phos] 2 each PO ACHS #10 powd.pack predniSONE [PredniSONE] 40 mg PO DAILY #3 tablet Home Medications: Albuterol Neb [Proventil Neb] 2.5 mg IH TID PRN 06/09/16 [History] Budesonide/Formoterol 160/4.5 [Symbicort 160/4.5] 2 puff IH BIDR 06/09/16 [ History] Fluticasone Propionate Nasal [Flonase] 2 spray NS DAILY 06/09/16 [History] Ipratropium/Albuterol Sulfate [Combivent Respimat Inhal [place]] 1 puff IH QID [History] Magnesium Oxide [Magnesium] 400 mg PO DAILY 06/09/16 [History] Omeprazole [PriLOSEC] 20 mg PO DAILY 06/09/16 [History] Paroxetine HCl [Paroxetine] 40 mg PO DAILY 06/09/16 [History] amLODIPine [Norvasc] 5 mg PO DAILY 06/09/16 [History] Aspirin [Lo-Dose Aspirin EC] 81 mg PO DAILY 08/02/16 [History] Potassium Chloride [K-Tab ER] 20 meq PO DAILY 04/16/17 [History] Buspirone HCl [Buspar] 10 mg PO BID 06/08/17 [History] Meloxicam [Mobic] 15 mg PO DAILY 06/08/17 [History] Metoprolol Succinate 100 mg PO DAILY 06/21/17 [History] Cetirizine HCl [Zyrtec] 10 mg PO DAILY 09/13/17 [History] Guaifenesin [Mucinex] 600 mg PO Q12H PRN 09/13/17 [History] Oxygen 2 l NS AD 09/13/17 [History] Nicotine Patch [Nicoderm] 21 mg TD DAILY #7 patch.td24 09/16/17 [Rx] Phos-NaK [Neutra-Phos] 2 each PO ACHS #10 powd.pack 09/16/17 [Rx] levoFLOXacin [Levaquin] 500 mg PO DAILY #3 tablet 09/16/17 [Rx] predniSONE [PredniSONE] 40 mg PO DAILY #3 tablet 09/16/17 [Rx] Allergies/Adverse Reactions: 3 Allergy/AdvReac Type Severity Reaction Status Date / Time No Known Allergies Allergy Verified 06/09/16 14:59 Procedures/tests Complete & Pending: Procedures Performed prior 72 hours Category Date Time Status EV echocardiogram Routine Y 09/14/17 16:12 Completed Date of admission: 09/13/17 15:10 Primary care physician: Terrie Joseph CNP Consults: 09/13/17 15:44 Consult to Nurse Navigator [CONS] Routine Comment: Discharging clinician: Dago Lucas - Patient Status Disposition: Home, Self-Care Condition: Fair Functional capacity at discharge: independent ambulation Overall status at discharge: patient is progressing back to baseline - Discharge Instructions Instructions: Prednisone (By mouth), Nicotine (Absorbed through the skin), Levofloxacin (By mouth), Phosphate Supplement (By mouth), Potassium Content of Foods List (DC), Chronic Obstructive Pulmonary Disease (DC), Abuse of Alcohol ( DC), Chronic Hypertension (DC) Follow Up With: Terrie Joseph CNP [Primary Care Provider] - 09/20/17 2:00 pm - Diet and Activity Activity: increase activity as tolerated Diet: low fat, low cholesterol Interval History: Ms. Rodriguez is a 57 year old female with PMH of HTN, Alcohol abuse with hepatic steatosis, Chronic resp failure secondary to COPD on home O2, Tobacco abuse She presents to the ER with complains of 2 weeks hx of worsening cough with greenish phlegm, said to be different from her baseline, she denied fever or chills, recent travels. Her boyfriend had been sick with fly-like symptoms. She also reports watery rhinorrhea, joint aches and generalized fatigue She denies nausea, vomiting or diarrhea, she has pleuritic chest pain when she coughs She denied orthopnea, PND , leg swelling. her O2 requirement has not changed She denies any other symptoms No change in urinary or bowel habits She has a hx of tobacco abuse and alcohol abuse, she still smokes and states her last drink was "cuople of beers three days ago" Hospital course: Patient was hospitalized. She was started on levofloxacin/oral prednisone/ inhaled bronchodilators and was treated as a COPD exacerbation. Patient also had multiple follicular abnormalities like hyponatremia, hypophosphatemia, hypomagnesemia, hypokalemia and hypochloremia. This requires abnormalities are chronic and they are secondary to her long-standing alcohol consumption. Her magnesium and potassium was replaced. Her present potassium is 3.5 with magnesium of 1.7. Her phosphate is 2.2 with sodium of 129. This morning I explained patient at length along with JAMARCUS Lima regarding her electrolyte abnormalities. Patient is insisting to go home. In spite of a long conversation with the patient regarding cessation of alcohol she states she cannot promise that she will stop drinking alcohol. Patient insists to go home. Patient is aware of the possible consequences of the electrolyte abnormalities. Plan: Patient will go home with levofloxacin/oral prednisone/Neutra-Phos. I have also prescribed patient nicotine patches. I recommended patient to see her primary care provider in next 1 week. I personally called her primary care provider's office and left my cell phone number with the front end assistant to call me back. At the time of discharge, I have explained patient at length regarding not to drink alcohol/smoke tobacco. Patient promised me that she will see her primary care provider in next 1-2 weeks. All questions answered. - Time Spent with Patient Total time spent providing and/or coordinating discharge services: - Constitutional Vitals: Temp Pulse Resp BP Pulse Ox 98.1 F 73 16 152/83 93 09/16/17 07:34 09/16/17 07:34 09/16/17 07:34 09/16/17 07:34 09/16/17 07:34 General appearance: Present: A&O X 3, pleasant, no acute distress - Head Head exam: Present: atraumatic, normocephalic - Eye Eye exam: Present: PERRL, conjuntiva pink, sclera anicteric Pupils: Present: PERRL - Neck Neck exam general surgery: Present: supple, trachea midline. Absent: lymphadenopathy - Respiratory Respiratory exam: Present: CTAB. Absent: accessory muscle use, rales, rhonchi, wheezes - Cardiovascular Cardiovascular exam: Present: RRR, +S1, +S2. Absent: diastolic murmur, gallop, rubs, systolic murmur - GI/Abdominal GI/Abdominal exam: Present: normal bowel sounds, soft, no peritoneal signs. Absent: distended, tenderness - Extremities Exam Extremities exam: Present: warm, radial pulses palpable and symmetrical. Absent : calf tenderness, cyanotic, pedal edema - Neurological Exam Neurological exam: Present: CN II-XII intact, oriented X3, no focal deficits. Absent: pronater drift, facial droop, speech deficit - Skin Skin exam: Present: dry, intact
== END 2017-09-16 10:48 | disposition home or self-care (01) ==
LOC: 3BNU 12:02 → EMEROO 12:02 → SUATTDRO 15:10 → 3BNU 15:35
PROVIDERS: ADMIT Internal Medicine; ATTEND Internal Medicine

== ENCOUNTER 2017-11-22 14:46 | Inpatient (IN) ==
[2017-11-22 15:26] LABS: Basophils % 0.1 %; Eosinophils % 0.1 %; Mean Corpuscular Volume 94.4 fL (83.0-100.0); Red Cell Distribution Width 13.2 % (11.5-14.5)
[2017-11-22 15:28] LABS: Hematocrit 33.5 % (35.3-44.9); Hemoglobin 11.6 g/dL (11.5-15.4); Immature Granulocytes % 0.8 % (0-4); Immature Platelets 31.7 % (1.1-6.1); Lymphocytes # 1.2 K/mcL (0.6-4.6); Lymphocytes % 6.5 %; Mean Corpuscular HGB Conc 34.6 g/dL (31.6-35.5); Mean Corpuscular Hemoglobin 32.7 pg (28.0-33.3); Mean Platelet Volume 11.6 fL (9.4-12.4); Monocytes # 0.8 K/mcL (0.0-1.3); Monocytes % 4.4 %; Nucleated Red Blood Cells 0.1 /100 WBC (0); Red Blood Count 3.55 M/mcL (3.82-4.97); Segmented Neutrophils % 88.1 %
[2017-11-22 15:37] LABS: Neutrophils # 16.7 K/mcL (1.6-8.9)
[2017-11-22 15:39] LABS: Mean Platelet Volume 9.2 fL (9.4-12.4)
--- NOTE | 2017-11-22 15:43 | Emergency Department Note ---
Disposition Clinical Impression: Bronchiolitis Diverticulosis Qualifiers: Diverticulosis site: diverticulosis of large intestine Diverticulosis bleeding : diverticulosis with bleeding Qualified Code(s): K57.31 - Diverticulosis of large intestine without perforation or abscess with bleeding GI bleed Qualifiers: GI bleed type/associated pathology: unspecified gastrointestinal hemorrhage type Qualified Code(s): K92.2 - Gastrointestinal hemorrhage, unspecified Disposition: Admitted As Inpatient Condition: Fair Referrals: Terrie Joseph [employer]AFF CLIMATE SCIENTIST [Primary Care Provider] - Forms: ED Satisfaction Letter, Work/School Release Time of Disposition: 17:29 Abdominal Pain HPI - General Chief Complaint: ED Abdominal Pain Stated Complaint: ABD pain Time Seen by Provider: 11/22/17 14:53 Source: patient, EMS Mode of arrival: EMS Limitations: no limitations Nursing Notes Reviewed: Yes Vital Signs Reviewed: Yes - History of Present Illness HPI Narrative: 57-year-old who comes in complaining of abdominal pain. Patient states she is a daily drinker Pt Subjective Complaint: abdominal pain Onset (ago): day(s) Consistency: constant Location: diffuse Pain Severity: moderate Quality: aching Radiation: none Migration to: no migration Improves with: nothing Worsens with: nothing Associated symptoms: Reports: other Treatments prior to arrival: none - Related Data Home Medications Medication Instructions Recorded Confirmed Albuterol Neb [Proventil Neb] 2.5 mg IH TID PRN 06/09/16 11/08/17 Budesonide/Formoterol 160/4.5 2 puff IH BIDR 06/09/16 11/08/17 [Symbicort 160/4.5] Fluticasone Propionate Nasal 2 spray NS DAILY 06/09/16 11/08/17 [Flonase] Ipratropium/Albuterol Sulfate 1 puff IH QID 06/09/16 11/08/17 [Combivent Respimat Inhal [place]] Magnesium Oxide [Magnesium] 400 mg PO DAILY 06/09/16 11/08/17 Omeprazole [PriLOSEC] 20 mg PO DAILY 06/09/16 11/08/17 Paroxetine HCl [Paroxetine] 40 mg PO DAILY 06/09/16 11/08/17 amLODIPine [Norvasc] 5 mg PO DAILY 06/09/16 11/08/17 Aspirin [Lo-Dose Aspirin EC] 81 mg PO DAILY 08/02/16 11/08/17 Potassium Chloride [K-Tab ER] 20 meq PO DAILY 04/16/17 11/08/17 Buspirone HCl [Buspar] 10 mg PO BID 06/08/17 11/08/17 Meloxicam [Mobic] 15 mg PO DAILY 06/08/17 11/08/17 Metoprolol Succinate 100 mg PO DAILY 06/21/17 11/08/17 Cetirizine HCl [Zyrtec] 10 mg PO DAILY 09/13/17 11/08/17 Guaifenesin [Mucinex] 600 mg PO Q12H PRN 09/13/17 11/08/17 Oxygen 2 l NS AD 09/13/17 11/08/17 Previous Rx's Medication Instructions Recorded Oseltamivir [Tamiflu] 75 mg PO BID #2 capsule 11/11/17 predniSONE [PredniSONE] 10 mg PO DAILY #31 tablet 11/11/17 Allergies Allergy/AdvReac Type Severity Reaction Status Date / Time No Known Allergies Allergy Verified 11/07/17 16:03 All systems ED: reviewed and negative except as stated. Constitutional: Denies: fever, chills, weakness, weight change Eyes: Denies: eye pain, eye discharge, vision change ENT ED: Denies: ear pain, throat pain, dental pain, hearing loss, epistaxis, congestion, dysphagia Cardiovascular: Denies: chest pain, palpitations, dyspnea on exertion, edema, syncope Respiratory: Denies: cough, dyspnea, wheezes, hemoptysis, stridor Gastrointestinal: Reports: abdominal pain, nausea, vomiting. Denies: diarrhea, constipation, hematemesis, melena, hematochezia Genitourinary: Denies: dysuria, frequency, hematuria, discharge Musculoskeletal: Denies: back pain, neck pain, arthralgia, myalgia Integumentary: Denies: rash, abrasion, lesions Neurological: Denies: headache, weakness, numbness, paresthesias, confusion, abnormal gait, vertigo Psychiatric: Denies: anxiety, depression, suicidal thoughts, homicidal thoughts , auditory hallucinations, visual hallucinations Endocrine: Denies: fatigue Hematological/Lymphatic: Denies: easy bleeding, easy bruising Allergic/Immunologic: Denies: facial swelling, urticaria Abdominal Pain PMH - Past Medical History Medical history: Reports: COPD, hypertension, liver disease, TIA Female Surgical History: Reports: other Psychiatric history: Reports: anxiety, depression - Social History Smoking status: Current every day smoker Alcohol use: Reports: heavy Drug use: Reports: none Physical Exam - General Limitations: no limitations General appearance: alert, in no apparent distress - Head Head exam: atraumatic, normocephalic, normal inspection - Eye Eye exam: Present: normal appearance, PERRL, EOMI - ENT ENT exam: normal exam, normal oropharynx, mucous membranes moist - Neck Neck exam: Present: normal inspection, full ROM, trachea midline - Chest Chest inspection: Present: normal inspection, symmetric chest wall rise - Respiratory Respiratory exam: Present: normal lung sounds bilaterally - Cardiovascular Cardiovascular exam: Present: regular rate, normal rhythm, normal heart sounds - Abdominal Exam Abdominal exam: Present: soft, tenderness. Absent: guarding, rebound Abdominal tenderness: Present: diffuse - Extremities Exam Extremities exam: Present: normal inspection, full ROM. Absent: tenderness, pedal edema - Expanded Lower Extremity Exam Neurovascular/Tendon exam: Absent: motor deficit, sensory deficit, tendon deficit Gait: observed and normal - Back Exam Back exam: Present: normal inspection, full ROM. Absent: tenderness - Neurological Exam Neurological exam: Present: alert, oriented X3 - Psychiatric Psychiatric exam: Present: normal affect, normal mood - Skin Skin exam: Present: warm, dry, intact, normal color Course Vital Signs Temperature 100.0 F H 11/22/17 14:54 Pulse Rate 124 11/22/17 14:54 Respiratory Rate 24 11/22/17 14:54 Blood Pressure 158/96 11/22/17 14:54 O2 Sat by Pulse Oximetry 99 11/22/17 14:54 Temperature 100.0 F H 11/22/17 14:54 Pulse Rate 95 11/22/17 15:12 Respiratory Rate 18 11/22/17 15:12 Blood Pressure 124/88 11/22/17 15:12 O2 Sat by Pulse Oximetry 99 11/22/17 15:12 Oxygen Delivery Oxygen Delivery Room Air Abdominal Pain - Lab Data Lab results reviewed: Yes I reviewed the patient's lab results. Result diagrams: 11/22/17 14:58 11/22/17 15:49 Lab Results 11/22/17 11/22/17 11/22/17 Range/Units 14:58 14:58 14:58 WBC 19.0 H (4.3-11.1) K/mcL RBC 3.55 L (3.82-4.97) M/mcL Hgb 11.6 (11.5-15.4) g/dL Hct 33.5 L (35.3-44.9) % MCV 94.4 (83.0-100.0) fL MCH 32.7 (28.0-33.3) pg MCHC 34.6 (31.6-35.5) g/dL RDW 13.2 (11.5-14.5) % Plt Count TNP MPV 11.6 9.2 L (9.4-12.4) fL Immature Gran % 0.8 (0-4) % Seg Neutrophils % 88.1 % Lymphocytes % 6.5 % Monocytes % 4.4 % Eosinophils % 0.1 % Basophils % 0.1 % Neutrophils # 16.7 H (1.6-8.9) K/mcL Lymphocytes # 1.2 (0.6-4.6) K/mcL Monocytes # 0.8 (0.0-1.3) K/mcL Eosinophils # 0.0 (0.0-0.6) K/mcL Basophils # 0.0 (0.0-0.2) K/mcL Nucleated RBCs/100 WBC 0.1 H (0) /100 WBC Plt Count ,Citrate 243 (150-600) Immature Plt Fraction 31.7 H (1.1-6.1) % Sodium (136-145) mEq/L Potassium (3.5-5.1) mEq/L Chloride (98-107) mEq/L Carbon Dioxide (23-29) mEq/L BUN (6-20) mg/dL Creatinine (0.60-1.20) mg/dL Est GFR ( Amer) (> 60) Est GFR (Non-Af Amer) (> 60) BUN/Creatinine Ratio (6-26) Glucose (70-105) mg/dL Calculated Osmolality (280-300) Calcium (8.6-10.3) mg/dL Total Bilirubin (0.3-1.0) mg/dL Direct Bilirubin (0.0-0.2) mg/dL Indirect Bilirubin (0.0-1.2) mg/dL AST (13-39) Units/L ALT (7-52) Units/L Alkaline Phosphatase (34-104) Units/L Serum Total Protein (6.4-8.9) g/dL Albumin (3.5-5.7) g/dL Globulin (2.4-3.5) g/dL Albumin/Globulin Ratio (1.1-2.2) Amylase (29-103) Units/L Lipase (11-82) Units/L Ur Specimen Adequacy Urine Color (Yellow) Urine Clarity (Clear) Urine pH (5.0-8.0) pH Units Ur Specific [place] (1.010-1.025) Urine Protein (Neg-Trace) mg/dL Urine Glucose (UA) (Normal) mg/dL Urine Ketones (Negative) mg/dL Urine Blood (Negative) Urine Nitrite (Negative) Urine Bilirubin (Negative) Urine Urobilinogen (Normal) mg/dL Ur Leukocyte Esterase (Negative) Urine Microscopic WBC (0-3) per hpf Ur Squamous Epith Cells (None-Few) per lpf Urine Bacteria (None-Few) per hpf Ur Culture Indicated? (NO) Ethyl Alcohol (0-10) mg/dL Specimen Rejected Hemolyzed 11/22/17 11/22/17 Range/Units 15:11 15:49 WBC (4.3-11.1) K/mcL RBC (3.82-4.97) M/mcL Hgb (11.5-15.4) g/dL Hct (35.3-44.9) % MCV (83.0-100.0) fL MCH (28.0-33.3) pg MCHC (31.6-35.5) g/dL RDW (11.5-14.5) % Plt Count MPV (9.4-12.4) fL Immature Gran % (0-4) % Seg Neutrophils % % Lymphocytes % % Monocytes % % Eosinophils % % Basophils % % Neutrophils # (1.6-8.9) K/mcL Lymphocytes # (0.6-4.6) K/mcL Monocytes # (0.0-1.3) K/mcL Eosinophils # (0.0-0.6) K/mcL Basophils # (0.0-0.2) K/mcL Nucleated RBCs/100 WBC (0) /100 WBC Plt Count ,Citrate (150-600) Immature Plt Fraction (1.1-6.1) % Sodium 129 L (136-145) mEq/L Potassium 2.9 L (3.5-5.1) mEq/L Chloride 83 L (98-107) mEq/L Carbon Dioxide 33 H (23-29) mEq/L BUN 4 L (6-20) mg/dL Creatinine 0.31 L (0.60-1.20) mg/dL Est GFR ( Amer) > 60 (> 60) Est GFR (Non-Af Amer) > 60 (> 60) BUN/Creatinine Ratio 13 (6-26) Glucose 81 (70-105) mg/dL Calculated Osmolality 264 L (280-300) Calcium 7.8 L (8.6-10.3) mg/dL Total Bilirubin 1.0 (0.3-1.0) mg/dL Direct Bilirubin 0.3 H (0.0-0.2) mg/dL Indirect Bilirubin 0.7 (0.0-1.2) mg/dL AST 109 H (13-39) Units/L ALT 74 H (7-52) Units/L Alkaline Phosphatase 499 H (34-104) Units/L Serum Total Protein 6.4 (6.4-8.9) g/dL Albumin 3.2 L (3.5-5.7) g/dL Globulin 3.2 (2.4-3.5) g/dL Albumin/Globulin Ratio 1.0 L (1.1-2.2) Amylase 26 L (29-103) Units/L Lipase 3 L (11-82) Units/L Ur Specimen Adequacy See below A Urine Color Yellow (Yellow) Urine Clarity Clear (Clear) Urine pH 7.5 (5.0-8.0) pH Units Ur Specific [place] 1.010 (1.010-1.025) Urine Protein 30 H (Neg-Trace) mg/dL Urine Glucose (UA) 100 H (Normal) mg/dL Urine Ketones 40 H (Negative) mg/dL Urine Blood Moderate H (Negative) Urine Nitrite Negative (Negative) Urine Bilirubin Small H (Negative) Urine Urobilinogen Normal (Normal) mg/dL Ur Leukocyte Esterase Large H (Negative) Urine Microscopic WBC 5-15 H (0-3) per hpf Ur Squamous Epith Cells Many H (None-Few) per lpf Urine Bacteria Many H (None-Few) per hpf Ur Culture Indicated? NO. (NO) Ethyl Alcohol < 10 (0-10) mg/dL Specimen Rejected - Radiology Data Radiology results reviewed: Yes I reviewed the patient's radiology results. Abdomen/Pelvis CT 11/22/17 14:54 IMPRESSION: 1. Interval progression of previously seen bronchial wall thickening and tree-in-bud opacities in the visualized lung morgan with now extensive involvement of the right middle lobe, right lower lobe, left lower lobe and lingula. Findings suggest acute on chronic infectious bronchiolitis. 2. Hepatic steatosis. 3. Sigmoid colon mild diverticulosis and mild chronic wall thickening. 4. Additional chronic findings as above including multifocal scarring of the left kidney. D/ / My Jon MD / My Jon MD Interpreting Provider: My Jon MD - EKG Data EKG attestation: Yes I reviewed and interpreted this EKG. EKG shows normal: sinus rhythm Rate: normal Rhythm: NSR [place]/QRS: normal Interpretation: no acute changes
[2017-11-22 15:57] LABS: Bilirubin,Urine Small (Negative); Blood,Urine Moderate (Negative); Clarity,Urine Clear (Clear); Color,Urine Yellow (Yellow); Glucose,Urine (UA) 100 mg/dL (Normal); Ketones,Urine 40 mg/dL (Negative); Leukocyte Esterase,Urine Large (Negative); Nitrite,Urine Negative (Negative); PH,Urine 7.5 pH Units (5.0-8.0); Protein,Urine 30 mg/dL (Neg-Trace); Urobilinogen,Urine Normal (Normal)
[2017-11-22 16:17] LABS: Bacteria,Urine Many per hpf (None-Few); Squamous Epithelial Cell,Urine Many per lpf (None-Few)
[2017-11-22 16:32] LABS: Ethanol < 10 mg/dL (0-10)
[2017-11-22 16:52] LABS: Alanine Aminotransferase 74 Units/L (7-52); Albumin 3.2 g/dL (3.5-5.7); Alkaline Phosphatase 499 Units/L (34-104); Amylase 26 Units/L (29-103); Aspartate Amino Transferase 109 Units/L (13-39); BUN/Creatinine Ratio 13 (6-26); Bilirubin,Direct 0.3 mg/dL (0.0-0.2); Bilirubin,Indirect 0.7 mg/dL (0.0-1.2); Blood Urea Nitrogen 4 mg/dL (6-20); Calcium 7.8 mg/dL (8.6-10.3); Carbon Dioxide 33 mEq/L (23-29); Chloride 83 mEq/L (98-107); Globulin 3.2 g/dL (2.4-3.5); Glucose 81 mg/dL (70-105); Lipase 3 Units/L (11-82); Osmolality,Calculated 264 (280-300); Potassium 2.9 mEq/L (3.5-5.1); Sodium 129 mEq/L (136-145); Total Protein 6.4 g/dL (6.4-8.9); eGFR For African Americans > 60 (> 60); eGFR For Non-African Americans > 60 (> 60)
[2017-11-22] MEDS ORDERED: 0.9 % Sodium Chloride 1,000 ML IVC ONE (16:53)
[2017-11-22] MEDS ORDERED: *HR* LORazepam 2 MG/ML VIAL IVP ONE (16:53)
[2017-11-22] MEDS ORDERED: Piperacillin/Tazobactam 3.375 GM in 0.9 % Sodium Chloride Mini Bag 100 ML IVPB ONE (17:07)
[2017-11-22] MEDS ORDERED: Piperacillin/Tazobactam 3.375 GM in Water for inj. (sterile) 20 ML 20 ML IVP ONE (17:30)
[2017-11-22] MEDS ORDERED: Naloxone 0.4 MG/ML INJ IVP PRN (18:37)
[2017-11-22] MEDS ORDERED: traMADol 50 MG TABLET PO PRN (18:37)
[2017-11-22] MEDS ORDERED: Ibuprofen 400 MG TABLET PO PRN (18:37)
[2017-11-22] MEDS ORDERED: Ketorolac 15 MG/ML VIAL IVP PRN (18:50)
[2017-11-22] MEDS ORDERED: Ondansetron 4 MG/2 ML VIAL IVP PRN (18:50)
[2017-11-22] MEDS ORDERED: Albuterol 2.5 MG/3 ML NEBULIZER IH PRN (18:56)
--- NOTE | 2017-11-22 19:03 | Internal Med History&Physical ---
<Sergei Lyons - Last Filed: 11/22/17 19:27> Date of Encounter: 11/22/17 Time of Encounter: 17:30 Assessment and Plan (1) Abdominal pain Current visit: No Status: Acute Most likely secondary to a UTI. CT of abdomen revealed a normal gallbladder and pancreas. However given her elevated alkaline phosphatase, I will order an ultrasound of her gallbladder. If ultrasound is negative I will follow through with the HIDA scan. CT of abdomen ultrasound shows hepatic steatosis, however that is unlikely to raise the alkaline phosphatase level. Patient does have history of alcoholism and pain that radiates to the back, however I think pancreatitis is unlikely given her amylase and lipase levels being low. - Gallbladder ultrasound. Follow through with HIDA scan if negative. - Repeat liver function enzymes in the morning. Qualifiers: Abdominal location: generalized Qualified Code(s): R10.84 - Generalized abdominal pain (2) Urinary tract infection Current visit: No Status: Ruled-out Urinalysis shows positive for leukocyte esterase. Patient has elevated white blood cell count of 19. CVA tenderness bilaterally. - Ceftriaxone 1 g daily for 10-14 days. Qualifiers: Urinary tract infection type: acute cystitis Hematuria presence: without hematuria Qualified Code(s): N30.00 - Acute cystitis without hematuria (3) Bronchiolitis Current visit: Yes Status: Acute Abdominal CT shows acute on chronic bronchiolitis. Patient has history of COPD.Minor wheezing on exam bilaterally. Given that patient is nauseous with by mouth intake right now, I will start her on Solu-Medrol and then transition her to oral prednisone as soon as she is able to tolerate by mouth intake. - IV Solu-Medrol 40 mg daily. Plan to transition to prednisone oral. (4) Hypokalemia Current visit: No Status: Acute Most likely secondary to decreased oral intake for the past 3-4 days. Potassium level at 2.9. - IV potassium K rider 40 mEq now and 40 mEq by mouth in the evening. (5) Hyponatremia Current visit: No Status: Chronic Patient slightly hyponatremic at 129 sodium. Was given 1 L bolus of normal saline in ED. - Maintenance fluids 100 mL per hour of normal saline. Recheck sodium level tomorrow morning. (6) DVT prophylaxis Current visit: No Status: Acute - Lovenox 40 milligrams subcutaneously daily. Internal Medicine - H&P: HPI Chief complaint: Abdominal pain Admitted From: Emergency Dept History of present illness: Ms. Rodriguez is a 57 year old female with a past medical history of COPD, hypertension, liver disease, TIA, and alcoholism that presents for abdominal pain. Patient says that she has been having abdominal pain for several months but says that within the last week it has become unbearable. She describes the pain as sharp and dull and radiating to the back. She says it is constant. She is unsure if the pain is worse with food, but she says that she has not eaten food record drank water adequately for the past several days. She denies fever. Admits to a cough as her baseline but says that for the past 2-3 days she has produced a green sputum. Admits to nausea and vomiting but denies any hematemesis. Admits to diarrhea for the past week,but denies any blood in her stool. She is a 2 pack per day smoker and drinks 6 six-pack of beer every day for the past 8-9 years. Her last drink was this morning. Past Med Surg Social Fam HX - Past Medical History Medical history: COPD, hypertension, liver disease, TIA Psychiatric history: anxiety, depression - Past Surgical History Surgical History: other - Social History Smoking Status: Current every day smoker Smokeless Tobacco Status: No Alcohol use: heavy Drug use: none - Family History Brother Living Status: Hx Family Cancer: Yes (Lung) Internal Medicine - H&P: Meds Albuterol Neb [Proventil Neb] 2.5 mg IH TID PRN 06/09/16 [History] Budesonide/Formoterol 160/4.5 [Symbicort 160/4.5] 2 puff IH BIDR 06/09/16 [ History] Fluticasone Propionate Nasal [Flonase] 2 spray NS DAILY 06/09/16 [History] Ipratropium/Albuterol Sulfate [Combivent Respimat Inhal [place]] 1 puff IH QID [History] Omeprazole [PriLOSEC] 20 mg PO DAILY 06/09/16 [History] Paroxetine HCl [Paroxetine] 40 mg PO DAILY 06/09/16 [History] amLODIPine [Norvasc] 5 mg PO DAILY 06/09/16 [History] Aspirin [Lo-Dose Aspirin EC] 81 mg PO DAILY 11/20/16 [History] Potassium Chloride [K-Tab ER] 20 meq PO DAILY 04/16/17 [History] Buspirone HCl [Buspar] 10 mg PO BID 06/08/17 [History] Meloxicam [Mobic] 15 mg PO DAILY 06/08/17 [History] Metoprolol Succinate 100 mg PO DAILY 06/21/17 [History] Cetirizine HCl [Zyrtec] 10 mg PO DAILY 09/13/17 [History] Guaifenesin [Mucinex] 600 mg PO Q12H 09/13/17 [History] Oxygen 2 l NS AD 09/13/17 [History] predniSONE [PredniSONE] See Taper PO DAILY 11/22/17 [History] 3 Allergy/AdvReac Type Severity Reaction Status Date / Time No Known Allergies Allergy Verified 11/07/17 16:03 All Systems PM: A 10-system review of systems was performed and is negative for pertinent findings except as documented above in the HPI. - Constitutional Constitutional: fatigue, no chills, no fever(s) - EENT Eyes: no change in vision, no discharge, no pain, no photophobia Nose, mouth and throat: no dysphagia, no nasal discharge, no neck pain, no sore throat - Cardiovascular Cardiovascular ROS IM: no chest pain, no diaphoresis, no dyspnea, no lightheadedness, no palpitations, no syncope - Respiratory Respiratory: cough, dyspnea, wheezing, excessive phlegm production - Gastrointestinal Gastrointestinal: abdominal pain, diarrhea, nausea, vomiting, no hematemesis, no hematochezia, no melena - Genitourinary Genitourinary: flank pain (b/l), no dysuria, no hematuria - Neurological Neurological ROS: no numbness, no tingling - Constitutional Vitals: Temp Pulse Resp BP Pulse Ox 100.0 F H 95 18 124/88 99 11/22/17 14:54 11/22/17 15:12 11/22/17 15:12 11/22/17 15:12 11/22/17 15:12 General appearance: Present: A&O X 3, no acute distress, underweight, answers questions appropriately - Head Head exam: Present: atraumatic, normocephalic - Eye Eye exam: Present: PERRL, conjuntiva pink, sclera anicteric Pupils: Present: PERRL - ENT ENT exam: Present: mucous membranes moist - Neck Neck exam general surgery: Present: supple, trachea midline. Absent: lymphadenopathy - Respiratory Respiratory exam: Present: wheezes (Minor wheezing on posterior lower posts b/l) . Absent: chest wall tenderness, decreased breath sounds - Cardiovascular Cardiovascular exam: Present: +S1, +S2, tachycardia. Absent: diastolic murmur, gallop, rubs, systolic murmur - GI/Abdominal GI/Abdominal exam: Present: normal bowel sounds, soft, tenderness ( periumbicical pain. ). Absent: distended, guarding, pulsatile mass, rebound Additional comments: Positive Phoenix's sign. Negative McBurney's point. - Extremities Exam Extremities exam: Present: warm, radial pulses palpable and symmetrical. Absent : calf tenderness, cyanotic, pedal edema - Back Exam Back exam: Present: CVA tenderness (L), CVA tenderness (R) Internal Med - H&P Results - Labs CBC & Chem 7: 11/22/17 14:58 11/22/17 15:49 Labs: Short CBC 11/22/17 Range/Units 14:58 WBC 19.0 H (4.3-11.1) K/mcL Hgb 11.6 (11.5-15.4) g/dL Hct 33.5 L (35.3-44.9) % Plt Count TNP Neutrophils # 16.7 H (1.6-8.9) K/mcL BMP 11/22/17 15:49 Sodium 129 L Potassium 2.9 L Chloride 83 L Carbon Dioxide 33 H BUN 4 L Creatinine 0.31 L Glucose 81 Calcium 7.8 L Liver Function 11/22/17 Range/Units 15:49 Total Bilirubin 1.0 (0.3-1.0) mg/dL Direct Bilirubin 0.3 H (0.0-0.2) mg/dL AST 109 H (13-39) Units/L ALT 74 H (7-52) Units/L Alkaline Phosphatase 499 H (34-104) Units/L Albumin 3.2 L (3.5-5.7) g/dL Urine 11/22/17 Range/Units 15:11 Urine Color Yellow (Yellow) Urine Clarity Clear (Clear) Urine pH 7.5 (5.0-8.0) pH Units Ur Specific [place] 1.010 (1.010-1.025) Urine Protein 30 H (Neg-Trace) mg/dL Urine Glucose (UA) 100 H (Normal) mg/dL - Impressions ITS Impressions Abdomen/Pelvis CT 11/22/17 14:54 IMPRESSION: 1. Interval progression of previously seen bronchial wall thickening and tree-in-bud opacities in the visualized lung morgan with now extensive involvement of the right middle lobe, right lower lobe, left lower lobe and lingula. Findings suggest acute on chronic infectious bronchiolitis. 2. Hepatic steatosis. 3. Sigmoid colon mild diverticulosis and mild chronic wall thickening. 4. Additional chronic findings as above including multifocal scarring of the left kidney. D/ / My Jon MD / My Jon MD Interpreting Provider: My Jon MD <Gold Cotton - Last Filed: 11/23/17 12:23> Date of Encounter: 11/23/17 Internal Medicine - H&P: HPI History of present illness: Ms. Rodriguez is a 57 year old female All Systems PM: A 10-system review of systems was performed and is negative for pertinent findings except as documented above in the HPI. - Constitutional Vitals: Temp Pulse Resp BP Pulse Ox 99.1 F 91 17 151/93 98 11/23/17 11:02 11/23/17 11:02 11/23/17 11:02 11/23/17 11:02 11/23/17 11:02 Internal Med - H&P Results - Labs CBC & Chem 7: 11/23/17 04:25 11/23/17 04:25 - Attending Attestation I examined this patient and my medical decision-making was reviewed with the Resident Physician. I agree with the documented findings, disposition and treatment plan as described except to the extent set forth below.
[2017-11-22 19:16] LABS: Magnesium 1.8 mg/dL (1.6-2.6)
[2017-11-22 19:30] LABS: INR 0.9; Prothrombin Time 10.1 Seconds (9.4-12.1)
[2017-11-22 19:32] LABS: Activated Partial Thrombo Time 29.2 Seconds (26.0-36.0)
[2017-11-22] MEDS: Budesonide/Formoterol 160/4.5 MDI IH SCH (20:21)
[2017-11-22] MEDS: 0.9 % Sodium Chloride 1,000 ML IVC SCH (21:01)
[2017-11-22] MEDS ORDERED: diazePAM 10 MG/2 ML SYRINGE IVP PRN (22:39)
[2017-11-22] MEDS: *HR* LORazepam 2 MG/ML VIAL IVP PRN (23:42)
[2017-11-22] MEDS: (Ipratropium/Albuterol Sulfate [Combivent Respimat In IH SCH (23:43)
[2017-11-22] MEDS: cefTRIAXone 1,000 MG in Water for inj. (sterile) 20 ML 10 ML IVP SCH (23:43)
[2017-11-22] MEDS: MethylPREDNISolone 40 MG/ML VIAL IVP SCH (23:43)
[2017-11-22] MEDS ORDERED: Potassium Chloride Elixir 20 MEQ/15 ML UDC PO ONE (23:55)
[2017-11-23] MEDS: OXYCODONE Oral CONC 10 MG/0.5 ML ORAL.SYG SL PRN ×2 (02:56→09:54)
[2017-11-23] MEDS: 0.9 % Sodium Chloride 1,000 ML IVC SCH (04:52)
[2017-11-23] MEDS: *HR* Enoxaparin 40 MG/0.4 ML SYRINGE SQ SCH (04:52)
[2017-11-23 04:56] LABS: Basophils % 0.1 %
[2017-11-23 04:58] LABS: Eosinophils % 0.1 %; Hematocrit 30.9 % (35.3-44.9); Hemoglobin 10.3 g/dL (11.5-15.4); Immature Granulocytes % 0.9 % (0-4); Immature Platelets 21.5 % (1.1-6.1); Lymphocytes # 1.3 K/mcL (0.6-4.6); Mean Corpuscular HGB Conc 33.3 g/dL (31.6-35.5); Mean Corpuscular Hemoglobin 32.1 pg (28.0-33.3); Mean Corpuscular Volume 96.3 fL (83.0-100.0); Mean Platelet Volume 11.5 fL (9.4-12.4); Monocytes # 0.8 K/mcL (0.0-1.3); Neutrophils # 14.4 K/mcL (1.6-8.9); Red Blood Count 3.21 M/mcL (3.82-4.97); Segmented Neutrophils % 85.9 %
[2017-11-23 05:07] LABS: Mean Platelet Volume 9.5 fL (9.4-12.4)
[2017-11-23 05:22] LABS: Alanine Aminotransferase 64 Units/L (7-52); Albumin/Globulin Ratio 1.1 (1.1-2.2); Alkaline Phosphatase 483 Units/L (34-104); Aspartate Amino Transferase 82 Units/L (13-39); BUN/Creatinine Ratio 7 (6-26); Bilirubin,Total 1.1 mg/dL (0.3-1.0); Blood Urea Nitrogen 2 mg/dL (6-20); Calcium 7.4 mg/dL (8.6-10.3); Carbon Dioxide 30 mEq/L (23-29); Chloride 89 mEq/L (98-107); Globulin 2.8 g/dL (2.4-3.5); Glucose 128 mg/dL (70-105); Osmolality,Calculated 264 (280-300); Potassium 2.9 mEq/L (3.5-5.1); Sodium 128 mEq/L (136-145); Total Protein 5.8 g/dL (6.4-8.9); eGFR For African Americans > 60 (> 60); eGFR For Non-African Americans > 60 (> 60)
--- NOTE | 2017-11-23 07:25 | Electrocardiograph Report ---
[address] [address] Test Date: 2017-11-22 Pat Name: Montserrat Rodriguez Department: 103 Room: 2N01 Gender: F Manager Lighting: JUAN M : 1960 Requested By: Supa Abad Order Number: [id number] Reading MD: Angel Andersen MD Measurements Intervals [place] Rate: 113 P: 63 ME: 172 QRS: 58 QRSD: 87 T: 60 QT: 328 QTc: 395 Interpretive Statements SINUS TACHYCARDIA Electronically Signed On 11-23-2017 7:23:35 EDT by Angel Andersen MD
[2017-11-23] MEDS: Budesonide/Formoterol 160/4.5 MDI IH SCH ×2 (07:26→22:19)
[2017-11-23] MEDS: MethylPREDNISolone 40 MG/ML VIAL IVP SCH (08:16)
[2017-11-23] MEDS: cefTRIAXone 1,000 MG in Water for inj. (sterile) 20 ML 10 ML IVP SCH (08:16)
[2017-11-23] MEDS: (Ipratropium/Albuterol Sulfate [Combivent Respimat In IH SCH ×3 (08:17→17:18)
[2017-11-23] MEDS: amLODIPine 5 MG TABLET PO SCH (09:46)
[2017-11-23] MEDS: Metoprolol XL (24 HR) Succ 50 MG TAB.ER.24H PO SCH (09:47)
[2017-11-23] MEDS: Fluticasone Propionate Nasal 50 MCG/SPRAY BOTTLE NS SCH (09:48)
--- NOTE | 2017-11-23 10:01 | Internal Med Progress Note ---
<VolodymyrSergei montemayor - Last Filed: 11/23/17 14:23> Date of Encounter: 11/23/17 Time of Encounter: 08:30 - Assessment and plan (1) Abdominal pain Current Visit: No Status: Acute Assessment and plan: Most likely secondary to UTI. Ultrasound of gallbladder was negative.Will follow up with a HIDA scan. Alkaline phosphatase level today at 485. AST dropped from 109 to 82 and a ALT dropped from 74 to 64. Elevated alkaline phosphatase might be due to hypocalcemia secondary to low vitamin D levels from undiagnosed cirrhosis. - Vitamin D level. Qualifiers: Abdominal location: generalized Qualified Code(s): R10.84 - Generalized abdominal pain (2) Urinary tract infection Current Visit: No Status: Ruled-out Assessment and plan: Currently on day #2 of ceftriaxone 1 g daily. White blood cell count has dropped from 19 to 16.7. Continue antibiotics. Qualifiers: Urinary tract infection type: acute cystitis Hematuria presence: without hematuria Qualified Code(s): N30.00 - Acute cystitis without hematuria (3) Bronchiolitis Current Visit: Yes Status: Acute Assessment and plan: Patient currently on Solu-Medrol 40 mg daily. Since patient has been able to tolerate by mouth intake, I will transition her to prednisone by mouth. (4) Hypokalemia Current Visit: No Status: Acute Assessment and plan: Potassium level still at 2.9 today despite being given 40 mEq of K rider and 40 mEq by mouth yesterday. Patient was given another dose of 40 mEq potassium earlier this morning. Magnesium level normal at 1.8. We will follow up with potassium level later this afternoon. (5) Hyponatremia Current Visit: No Status: Chronic Assessment and plan: Patient slightly hyponatremic at 128 sodium. Patient asymptomatic at the moment. We will continue with maintenance fluids for now. (6) DVT prophylaxis Current Visit: No Status: Acute Assessment and plan: Creatinine levels are normal. Continue with Lovenox. - Subjective Interval history: Ms. Rodriguez is a 57 year old female with a past medical history of COPD, hypertension, liver disease, TIA, and alcoholism that presents for abdominal pain. When seen today patient denies any abdominal pain, nausea, vomiting, fever, dysuria, or hematuria. She says that she has been able to eat solid foods without feeling nauseous or vomiting. She denies any abdominal pain today. - Constitutional Vitals: Temp Pulse Resp BP Pulse Ox 99.6 F 112 18 123/80 97 11/23/17 06:46 11/23/17 06:46 11/23/17 07:29 11/23/17 06:46 11/23/17 07:29 General appearance: Present: A&O X 3, no acute distress, underweight, answers questions appropriately - ENT ENT exam: Present: mucous membranes moist, normal oropharynx - Respiratory Respiratory exam: Present: CTAB. Absent: accessory muscle use, rales, rhonchi, wheezes - Cardiovascular Cardiovascular exam: Present: +S1, +S2, tachycardia. Absent: diastolic murmur, systolic murmur - GI/Abdominal GI/Abdominal exam: Present: normal bowel sounds, soft, no peritoneal signs. Absent: distended, guarding, rebound, tenderness - Extremities Exam Extremities exam: Present: warm, radial pulses palpable and symmetrical. Absent : calf tenderness, cyanotic, pedal edema Internal Medicine: Result - Labs CBC & Chem 7: 11/23/17 04:25 11/23/17 04:25 Labs: Short CBC 11/23/17 Range/Units 04:25 WBC 16.7 H (4.3-11.1) K/mcL Hgb 10.3 L (11.5-15.4) g/dL Hct 30.9 L (35.3-44.9) % Plt Count TNP Neutrophils # 14.4 H (1.6-8.9) K/mcL BMP 11/23/17 04:25 Sodium 128 L Potassium 2.9 L Chloride 89 L Carbon Dioxide 30 H BUN 2 L Creatinine 0.28 L Glucose 128 H Calcium 7.4 L Liver Function 11/23/17 Range/Units 04:25 Total Bilirubin 1.1 H (0.3-1.0) mg/dL AST 82 H (13-39) Units/L ALT 64 H (7-52) Units/L Alkaline Phosphatase 483 H (34-104) Units/L Albumin 3.0 L (3.5-5.7) g/dL - ABG Interpretation ABG results: PT/INR, D-dimer PT 10.1 Seconds (9.4-12.1) 11/22/17 14:58 Consult Discharge Plan - Plan Referrals: Terrie Joseph CNP [Primary Care Provider] - (SENT WEB REQUEST ON 11-23-17 @ 0812) Wilver Tony MD [Partnered Physician] - (SENT WEB REQUEST ON 11-23-17 @ 3819) <Alfredito Romreo - Last Filed: 11/23/17 15:01> Date of Encounter: 11/23/17 - Assessment and plan (1) Abdominal pain Current Visit: No Status: Acute Qualifiers: Abdominal location: generalized Qualified Code(s): R10.84 - Generalized abdominal pain (2) Urinary tract infection Current Visit: No Status: Ruled-out Qualifiers: Urinary tract infection type: acute cystitis Hematuria presence: without hematuria Qualified Code(s): N30.00 - Acute cystitis without hematuria (3) Bronchiolitis Current Visit: Yes Status: Acute (4) Hypokalemia Current Visit: No Status: Acute (5) Hyponatremia Current Visit: No Status: Chronic (6) DVT prophylaxis Current Visit: No Status: Acute - Constitutional Vitals: Temp Pulse Resp BP Pulse Ox 99.1 F 91 17 151/93 98 11/23/17 11:02 11/23/17 11:02 11/23/17 11:02 11/23/17 11:02 11/23/17 11:02 Internal Medicine: Result - Labs CBC & Chem 7: 11/23/17 04:25 11/23/17 04:25 - ABG Interpretation ABG results: PT/INR, D-dimer PT 10.1 Seconds (9.4-12.1) 11/22/17 14:58 - Attending Attestation I have independently seen and examined this patient on 11/23 and discussed plan of care with patient 57 F, sulyoan alcohol abuse, chronic resp failure on home O2, COPD, chronic hyponatremia, anemia, admitted and being managed for acute on chronic bronchiolitis, abdominal pain, Suspected UTI. She denies any new complains, her abdominal pain has improved Work up for abdominal pain negative til date, hx of similar scenario in 05/2016 with ALP >1000 , negative MRCP. Gallbladder USS and CT scan done in this admission unremarkable, except for renal scarring and hepatic steatosis Labs and Imaging reviewed: persistent hypokalemia, chronic hyponatremia, alcohol -picture transaminitis, leukocytosis is improving, blood and urine culture is pending. gallbladder USS with hepatic steatosis, no features of cholecystitis or choledocholithiasis Follow final cultures, continue antibiotics for now, continue CIWA protocol, no indication for HIDA scan, given similar negative wirk up in 2016, elevated ALP may be from bone disease, check Vi D level, continue current care Rest of details as in the resident physician's documentation
[2017-11-23] MEDS: predniSONE 20 MG TABLET PO SCH (10:27)
[2017-11-23] MEDS: *HR* LORazepam 2 MG/ML VIAL IVP PRN ×2 (10:36→20:50)
[2017-11-23] MEDS ORDERED: Thiamine (B-1) 100 MG, Folic Acid 1 MG, MVI, adult with vitamin K 10 ML in 0.9 % Sodi... IVPB SCH (18:00)
[2017-11-23 19:32] LABS: Potassium 4.2 mEq/L (3.5-5.1)
[2017-11-23] MEDS: *HR* OxyCODONE Immed Rel 5 MG TABLET PO PRN (20:49)
[2017-11-23 21:48] LABS: BUN/Creatinine Ratio 11 (6-26); Blood Urea Nitrogen 4 mg/dL (6-20); Calcium 7.9 mg/dL (8.6-10.3); Carbon Dioxide 29 mEq/L (23-29); Chloride 90 mEq/L (98-107); Glucose 169 mg/dL (70-105); Osmolality,Calculated 269 (280-300); Sodium 129 mEq/L (136-145); eGFR For African Americans > 60 (> 60); eGFR For Non-African Americans > 60 (> 60)
[2017-11-24] MEDS: *HR* LORazepam 2 MG/ML VIAL IVP PRN ×4 (01:01→23:33)
[2017-11-24 03:48] LABS: Basophils % 0.1 %
[2017-11-24 03:51] LABS: Eosinophils % 0.2 %; Hematocrit 29.7 % (35.3-44.9); Hemoglobin 9.7 g/dL (11.5-15.4); Immature Granulocytes % 0.6 % (0-4); Lymphocytes # 1.2 K/mcL (0.6-4.6); Mean Corpuscular HGB Conc 32.7 g/dL (31.6-35.5); Mean Corpuscular Hemoglobin 33.1 pg (28.0-33.3); Mean Corpuscular Volume 101.4 fL (83.0-100.0); Monocytes # 0.8 K/mcL (0.0-1.3); Monocytes % 4.1 %; Neutrophils # 17.1 K/mcL (1.6-8.9); Red Blood Count 2.93 M/mcL (3.82-4.97); Red Cell Distribution Width 13.1 % (11.5-14.5)
[2017-11-24 05:11] LABS: BUN/Creatinine Ratio 13 (6-26); Blood Urea Nitrogen 6 mg/dL (6-20); Calcium 7.8 mg/dL (8.6-10.3); Carbon Dioxide 22 mEq/L (23-29); Chloride 94 mEq/L (98-107); Glucose 129 mg/dL (70-105); Osmolality,Calculated 265 (280-300); Sodium 128 mEq/L (136-145); eGFR For African Americans > 60 (> 60); eGFR For Non-African Americans > 60 (> 60)
[2017-11-24 05:15] LABS: Potassium 4.8 mEq/L (3.5-5.1)
[2017-11-24] MEDS: *HR* Enoxaparin 40 MG/0.4 ML SYRINGE SQ SCH (05:25)
[2017-11-24] MEDS: *HR* OxyCODONE Immed Rel 5 MG TABLET PO PRN (05:25)
--- NOTE | 2017-11-24 07:54 | Internal Med Progress Note ---
<Aneesh Gibson - Last Filed: 11/24/17 13:11> Date of Encounter: 11/24/17 Time of Encounter: 08:15 - Assessment and plan (1) Pneumonia Current Visit: Yes Status: Suspected Assessment and plan: Suspected aspiration pneumonia vs. COPD Exacerbation The patient has been worsening clinically Increased sputum production, cough, respiratory distress The patient is coughing up thick, green, purulent sputum We will culture blood and sputum Broaden antibiotic coverage to include Azithromycin (5 day course) and Flagyl ( 7 day course) Qualifiers: Pneumonia type: aspiration pneumonia Aspiration pneumonia type: due to gastric secretions Laterality: unspecified laterality Lung location: unspecified part of lung Qualified Code(s): J69.0 - Pneumonitis due to inhalation of food and vomit (2) Bronchiolitis Current Visit: Yes Status: Acute Assessment and plan: Bronchiolitis superimposed on Acute exacerbation of COPD Currently treated with Ceftriaxone (Day 3) and Prednisone (Day 3) WBC is increasing, with increased immature granulocytes (3) Alcohol withdrawal Current Visit: Yes Status: Acute Assessment and plan: Acute alcohol withdrawal without delirium The patient is becoming more anxious throughout her stay She has been requiring frequent dosing of ativan We will begin the patient on librium, titrate down on ativan Continue to assess CIWA Qualifiers: Complication of substance-induced condition: with unspecified complication Qualified Code(s): F10.239 - Alcohol dependence with withdrawal, unspecified (4) Abdominal pain Current Visit: Yes Status: Acute Assessment and plan: Acute abdominal pain secondary to UTI vs. Hepatic steatosis US Gallbladder showed fatty hepatic infiltrate, but no gallbladder disease Alkaline phosphatase was elevated previously, possibly linked to hypocalcemia/ low vitamin D Vitamin D level is pending Qualifiers: Abdominal location: generalized Qualified Code(s): R10.84 - Generalized abdominal pain (5) Urinary tract infection Current Visit: Yes Status: Ruled-out Assessment and plan: UTI, unspecified organism Patient has no acute urinary symptoms overnight, abdominal pain has improved Afebrile overnight, WBC 19.2, up from 16.7 Ceftriaxone day 3 Qualifiers: Urinary tract infection type: acute cystitis Hematuria presence: without hematuria Qualified Code(s): N30.00 - Acute cystitis without hematuria (6) Hypokalemia Current Visit: No Status: Resolved Assessment and plan: resolved (7) Hyponatremia Current Visit: No Status: Chronic Assessment and plan: Patient slightly hyponatremic at 128 sodium. Patient asymptomatic at the moment. We will continue with maintenance fluids for now. May consider restriction of free water (8) DVT prophylaxis Current Visit: No Status: Acute Assessment and plan: Creatinine levels are normal. Continue with Lovenox. - Subjective Interval history: The patient is resting comfortably in bed at time of examination. She says that overnight she is unable to sleep she was highly anxious, saying that her nerves were out of control. This apparently her baseline, and she says that she has the same issue at home. As to her abdominal pain, she says that has largely resolved at this point, however she says that it has been off and on for several months. Otherwise, she does say that her breathing has been getting more and more difficult. She continues to produce copious sputum or coughing. - Constitutional Vitals: Temp Pulse Resp BP Pulse Ox 99.0 F 87 19 160/93 97 11/24/17 07:21 11/24/17 07:21 11/24/17 07:21 11/24/17 07:21 11/24/17 07:21 General appearance: Present: A&O X 3, no acute distress, underweight, answers questions appropriately Exam: Gen: Vitals noted. No acute distress, however the patient is anxious appearing. AAOx3 HEENT: PERRL/EOMI, oropharynx clear, Normocephalic, atraumatic Neck: Supple. No adenopathy. Cardiac: RRR, no murmur, +S1/S2 Pulmonary: Diminished lung sounds bilaterally, with diffuse wheezing and scattered rhonchi. Abdomen: soft, nontender, BS noted, no guarding MSK: ROM intact, no joint swelling noted Extremities: no BLE edema, nontender calf, no cyanosis or clubbing Neuro: A&Ox3, moves all extremities, no focal deficits Psych: Anxious appearing, flat affect Internal Medicine: Result - Labs CBC & Chem 7: 11/24/17 03:02 11/24/17 03:02 Labs: Short CBC 11/24/17 Range/Units 03:02 WBC 19.2 H (4.3-11.1) K/mcL Hgb 9.7 L (11.5-15.4) g/dL Hct 29.7 L (35.3-44.9) % Plt Count TNP Neutrophils # 17.1 H (1.6-8.9) K/mcL BMP 11/23/17 11/24/17 17:41 03:02 Sodium 129 L 128 L Potassium 4.2 D 4.8 Chloride 90 L 94 L Carbon Dioxide 29 22 L BUN 4 L 6 Creatinine 0.38 L 0.45 L Glucose 169 H 129 H Calcium 7.9 L 7.8 L - ABG Interpretation ABG results: PT/INR, D-dimer PT 10.1 Seconds (9.4-12.1) 11/22/17 14:58 Consult Discharge Plan - Plan Referrals: Terrie Joseph CNP [Primary Care Provider] - 11/30/17 10:30 am () Wilver Tony MD [Partnered Physician] - (SENT WEB REQUEST ON 11-23-17 @ [id number]) <Alfredito Romero - Last Filed: 11/24/17 14:44> Date of Encounter: 11/24/17 - Assessment and plan (1) Pneumonia Current Visit: Yes Status: Suspected Qualifiers: Pneumonia type: aspiration pneumonia Aspiration pneumonia type: due to gastric secretions Laterality: unspecified laterality Lung location: unspecified part of lung Qualified Code(s): J69.0 - Pneumonitis due to inhalation of food and vomit (2) Bronchiolitis Current Visit: Yes Status: Acute (3) Alcohol withdrawal Current Visit: Yes Status: Acute Qualifiers: Complication of substance-induced condition: with unspecified complication Qualified Code(s): F10.239 - Alcohol dependence with withdrawal, unspecified (4) Abdominal pain Current Visit: Yes Status: Acute Qualifiers: Abdominal location: generalized Qualified Code(s): R10.84 - Generalized abdominal pain (5) Urinary tract infection Current Visit: Yes Status: Ruled-out Qualifiers: Urinary tract infection type: acute cystitis Hematuria presence: without hematuria Qualified Code(s): N30.00 - Acute cystitis without hematuria (6) Hypokalemia Current Visit: No Status: Resolved (7) Hyponatremia Current Visit: No Status: Chronic (8) DVT prophylaxis Current Visit: No Status: Acute - Constitutional Vitals: Temp Pulse Resp BP Pulse Ox 98.9 F 99 20 158/89 96 11/24/17 11:15 11/24/17 11:15 11/24/17 11:15 11/24/17 11:15 11/24/17 11:15 Internal Medicine: Result - Labs CBC & Chem 7: 11/24/17 03:02 11/24/17 03:02 Labs: Short CBC 11/24/17 Range/Units 03:02 WBC 19.2 H (4.3-11.1) K/mcL Hgb 9.7 L (11.5-15.4) g/dL Hct 29.7 L (35.3-44.9) % Plt Count TNP Neutrophils # 17.1 H (1.6-8.9) K/mcL BMP 11/23/17 11/24/17 17:41 03:02 Sodium 129 L 128 L Potassium 4.2 D 4.8 Chloride 90 L 94 L Carbon Dioxide 29 22 L BUN 4 L 6 Creatinine 0.38 L 0.45 L Glucose 169 H 129 H Calcium 7.9 L 7.8 L - ABG Interpretation ABG results: PT/INR, D-dimer PT 10.1 Seconds (9.4-12.1) 11/22/17 14:58 - Impressions Impressions Chest X-Ray 11/24/17 09:35 IMPRESSION: 1. No acute cardiopulmonary disease. 2. Stable hyperinflation compatible with COPD. D/ / Luis Enrique Del Angel MD / Luis Enrique Del Angel MD Interpreting Provider: Luis Enrique Del Angel MD - Attending Attestation I examined this patient and my medical decision-making was reviewed with the Resident Physician. I agree with the documented findings, disposition and treatment plan as described except to the extent set forth below. 57 F, known alcohol abuse, chronic resp failure on home O2, COPD, chronic hyponatremia, anemia, admitted and being managed for acute on chronic bronchiolitis, abdominal pain, Suspected UTI. This morning, she says her cough has worsened and I did see a yellowish phlegm produced, she also has worse bilateral rhonchi Her repeat CXR is clear, without infiltrates due to her lack of clinical improvement, we will add azithromycin and flagyl ( risk of aspiration based on alcoholism), follow sputum , blood and urine cultures which are pending Worsening leukocytosis is possibly due to steroids, continue to monitor Hypokalemia has resolved patient continues to have withdrawal from alcohol with jitteriness, continue ativan, add librium and wean off ativa, d/c valium. Continue CIWA protocol alcohol-picture transaminitis , gallbladder USS with hepatic steatosis, no features of cholecystitis or choledocholithiasis Continue to monitor rest as in resident physician's documentation
[2017-11-24] MEDS: (Ipratropium/Albuterol Sulfate [Combivent Respimat In IH SCH ×4 (07:59→20:13)
[2017-11-24 08:06] LABS: Mean Platelet Volume 9.5 fL (9.4-12.4)
[2017-11-24] MEDS: Fluticasone Propionate Nasal 50 MCG/SPRAY BOTTLE NS SCH (09:14)
[2017-11-24] MEDS: Metoprolol XL (24 HR) Succ 50 MG TAB.ER.24H PO SCH (09:15)
[2017-11-24] MEDS: cefTRIAXone 1,000 MG in Water for inj. (sterile) 20 ML 10 ML IVP SCH (09:15)
[2017-11-24] MEDS: amLODIPine 5 MG TABLET PO SCH (09:15)
[2017-11-24] MEDS: predniSONE 20 MG TABLET PO SCH (09:15)
[2017-11-24] MEDS: Budesonide/Formoterol 160/4.5 MDI IH SCH ×2 (10:35→19:46)
[2017-11-24] MEDS: Ipratropium/Albuterol Neb 3 ML IH PRN (11:49)
[2017-11-24] MEDS ORDERED: Azithromycin 500 MG in D5% in Water 250 ML IVPB ONE (13:03)
--- NOTE | 2017-11-24 14:30 | Event Note ---
Date of Encounter: 11/24/17 Time of Encounter: 14:23 I was called to the bedside by the patient's nurse who stated that the patient got up to go to the bathroom on her own and experienced a fall with a hit to the head on the ground. The patient was found down on the floor. A nurse was last in the room approximately 15-20 minutes prior to the time when she was found on the floor, however the fall was unwitnessed. The patient says she got up to go to the restroom, lost her balance, and fell. She says that she's now having a central/left sided headache that is dull and constant. She denies any focal neurological deficits, and denies loss of consciousness before or after the fall. PE General: Appears alert although tired, Oriented to person and place, as well as time. She is unable to name the year, however she appropriately identifies the month and the president. Head: atraumatic, no obvious lacerations or abrasions. There is no focal edema or ecchymosis at the location of impact as described by the patient. Neuro: Patient appears consistent with prior exam. CN2-12 grossly intact, although patient seems somewhat tired and requires multiple redirections to complete tasks. Muscle strength 5/5 in all extremities. Plan: Enforcement of strict fall precautions, bed alarm, Q1H neuro checks x4h, then downgrade back to q4h neuro checks. CT Head/Brain wo contrast
[2017-11-24] MEDS ORDERED: metroNIDAZOLE 500 MG TABLET PO SCH (15:00)
[2017-11-24] MEDS: MetroNIDAZOLE 500 MG/100 ML 500 MG/100 ML BAG IVPB SCH ×2 (16:53→23:34)
[2017-11-25] MEDS: *HR* Enoxaparin 40 MG/0.4 ML SYRINGE SQ SCH (05:00)
[2017-11-25] MEDS: Azithromycin 250 MG in D5% in Water 250 ML IVPB SCH (05:00)
[2017-11-25] MEDS: MetroNIDAZOLE 500 MG/100 ML 500 MG/100 ML BAG IVPB SCH ×3 (05:00→19:55)
[2017-11-25] MEDS: Vitamin B Complex/Vit C/Vit E 1 EACH TABLET PO SCH (07:16)
[2017-11-25] MEDS: Folic Acid 1 MG TABLET PO SCH (07:17)
[2017-11-25] MEDS: amLODIPine 5 MG TABLET PO SCH (07:17)
[2017-11-25] MEDS: Metoprolol XL (24 HR) Succ 50 MG TAB.ER.24H PO SCH (07:17)
[2017-11-25] MEDS: predniSONE 20 MG TABLET PO SCH (07:17)
[2017-11-25] MEDS: cefTRIAXone 1,000 MG in Water for inj. (sterile) 20 ML 10 ML IVP SCH (07:18)
[2017-11-25] MEDS: (Ipratropium/Albuterol Sulfate [Combivent Respimat In IH SCH ×3 (07:18→22:17)
[2017-11-25] MEDS: Fluticasone Propionate Nasal 50 MCG/SPRAY BOTTLE NS SCH (07:18)
[2017-11-25] MEDS: Thiamine (B-1) 100 MG TABLET PO SCH (07:20)
[2017-11-25 07:42] LABS: Basophils % 0.1 %; Eosinophils % 0.1 %; Nucleated Red Blood Cells 0.1 /100 WBC (0); Segmented Neutrophils % 86.8 %
[2017-11-25 07:44] LABS: Hematocrit 28.7 % (35.3-44.9); Hemoglobin 9.3 g/dL (11.5-15.4); Immature Granulocytes % 1.3 % (0-4); Lymphocytes # 1.3 K/mcL (0.6-4.6); Lymphocytes % 7.5 %; Mean Corpuscular HGB Conc 32.4 g/dL (31.6-35.5); Mean Corpuscular Hemoglobin 32.5 pg (28.0-33.3); Mean Corpuscular Volume 100.3 fL (83.0-100.0); Monocytes # 0.7 K/mcL (0.0-1.3); Monocytes % 4.2 %; Neutrophils # 14.5 K/mcL (1.6-8.9); Red Blood Count 2.86 M/mcL (3.82-4.97); Red Cell Distribution Width 12.9 % (11.5-14.5)
[2017-11-25 09:04] LABS: BUN/Creatinine Ratio 21 (6-26); Blood Urea Nitrogen 8 mg/dL (6-20); Calcium 8.3 mg/dL (8.6-10.3); Carbon Dioxide 27 mEq/L (23-29); Chloride 98 mEq/L (98-107); Glucose 101 mg/dL (70-105); Osmolality,Calculated 270 (280-300); Potassium 3.8 mEq/L (3.5-5.1); Sodium 131 mEq/L (136-145); eGFR For African Americans > 60 (> 60); eGFR For Non-African Americans > 60 (> 60)
--- NOTE | 2017-11-25 10:10 | Internal Med Progress Note ---
<DeloresprestonanayaSergei montemayor - Last Filed: 11/25/17 17:12> Date of Encounter: 11/25/17 Time of Encounter: 08:50 - Assessment and plan (1) Pneumonia Current Visit: Yes Status: Suspected Assessment and plan: Suspected aspiration pneumonia vs. COPD Exacerbation. The patient has been the same clinically since yesterday. Patient still complaining of cough with production of yellow sputum that has not improved since yesterday. - Blood and sputum cultures still pending. - Day #2 of Azithromycin (5 day course) and Flagyl (7 day course). Qualifiers: Pneumonia type: aspiration pneumonia Aspiration pneumonia type: due to gastric secretions Laterality: unspecified laterality Lung location: unspecified part of lung Qualified Code(s): J69.0 - Pneumonitis due to inhalation of food and vomit (2) Bronchiolitis Current Visit: Yes Status: Acute Assessment and plan: Bronchiolitis superimposed on Acute exacerbation of COPD - Currently treated with Ceftriaxone (Day 4) and Prednisone (Day 4) (3) Alcohol withdrawal Current Visit: Yes Status: Acute Assessment and plan: Acute alcohol withdrawal without delirium. The patient is becoming more anxious throughout her stay. - Currently on Librium 25 mg 3 times a day. Plan to discontinue Ativan. - Continue to assess CIWA Qualifiers: Complication of substance-induced condition: with unspecified complication Qualified Code(s): F10.239 - Alcohol dependence with withdrawal, unspecified (4) Abdominal pain Current Visit: Yes Status: Acute Assessment and plan: Acute abdominal pain secondary to UTI vs. Hepatic steatosis. US Gallbladder showed fatty hepatic infiltrate, but no gallbladder disease Alkaline phosphatase was elevated previously, possibly linked to hypocalcemia/ low vitamin D. - Vitamin D level is pending. - Order GGT to evaluate cause of elevated alkaline phosphatase. Update: GGT level elevated at 924. Will proceed with ordering an MRCP. Qualifiers: Abdominal location: generalized Qualified Code(s): R10.84 - Generalized abdominal pain (5) Urinary tract infection Current Visit: Yes Status: Ruled-out Assessment and plan: UTI, unspecified organism. Patient has no acute urinary symptoms overnight, abdominal pain has improved Afebrile overnight. Ceftriaxone day 4. - Continue ceftriaxone. Qualifiers: Urinary tract infection type: acute cystitis Hematuria presence: without hematuria Qualified Code(s): N30.00 - Acute cystitis without hematuria (6) Hypokalemia Current Visit: No Status: Resolved Assessment and plan: resolved. Currently at 3.8 today. (7) Hyponatremia Current Visit: No Status: Chronic Assessment and plan: Patient slightly hyponatremic at 131 sodium. Patient asymptomatic at the moment. We will continue with maintenance fluids for now. (8) DVT prophylaxis Current Visit: No Status: Acute Assessment and plan: Creatinine levels are normal. Continue with Lovenox. - Subjective Interval history: Ms. Rodriguez is a 57 year old female with a past medical history of COPD, hypertension, liver disease, TIA, and alcoholism that presents for abdominal pain. Patient says that her cough became worse yesterday and it has been the same since then. She is still producing yellow sputum. She admits to wheezing that has not improved. She denies any fever, headache, nausea, vomiting, abdominal pain, dysuria, hematuria, diarrhea, or hematochezia. - Constitutional Vitals: Temp Pulse Resp BP Pulse Ox 97.8 F 91 18 165/99 97 11/25/17 07:30 11/25/17 07:30 11/25/17 07:30 11/25/17 07:30 11/25/17 07:30 General appearance: Present: A&O X 3, no acute distress, underweight, answers questions appropriately - Respiratory Respiratory exam: Present: wheezes (Bilaterally in anterior and posterior posts. ). Absent: chest wall tenderness, respiratory distress - Cardiovascular Cardiovascular exam: Present: RRR, +S1, +S2. Absent: diastolic murmur, gallop, rubs, systolic murmur - GI/Abdominal GI/Abdominal exam: Present: normal bowel sounds, soft, tenderness (Minor tenderness in epigastric region on palpation.). Absent: guarding, rebound - Extremities Exam Extremities exam: Present: full ROM, normal capillary refill, warm, radial pulses palpable and symmetrical. Absent: calf tenderness, cyanotic, pedal edema , tenderness Internal Medicine: Result - Labs CBC & Chem 7: 11/25/17 05:58 11/25/17 05:58 Labs: BMP 11/25/17 05:58 Sodium 131 L Potassium 3.8 Chloride 98 Carbon Dioxide 27 BUN 8 Creatinine 0.39 L Glucose 101 Calcium 8.3 L - ABG Interpretation ABG results: PT/INR, D-dimer PT 10.1 Seconds (9.4-12.1) 11/22/17 14:58 - Impressions Impressions Chest X-Ray 11/24/17 09:35 IMPRESSION: 1. No acute cardiopulmonary disease. 2. Stable hyperinflation compatible with COPD. D/ / Luis Enrique Del Angel MD / Luis Enrique Del Angel MD Interpreting Provider: Luis Enrique Del Angel MD Head CT 11/24/17 14:10 IMPRESSION: No acute intracranial abnormality. D/ / Luis Enrique Del Angel MD / Luis Enrique Del Angel MD Interpreting Provider: Lusi Enrique Del Angel MD Consult Discharge Plan - Plan Referrals: Terrie Joseph CNP [Primary Care Provider] - 11/30/17 10:30 am () Wilver Tony MD [Partnered Physician] - (SENT WEB REQUEST ON 11-23-17 @ [id number]) <Alfredito Romero - Last Filed: 11/25/17 17:21> Date of Encounter: 11/25/17 - Assessment and plan (1) Pneumonia Current Visit: Yes Status: Suspected Qualifiers: Pneumonia type: aspiration pneumonia Aspiration pneumonia type: due to gastric secretions Laterality: unspecified laterality Lung location: unspecified part of lung Qualified Code(s): J69.0 - Pneumonitis due to inhalation of food and vomit (2) Bronchiolitis Current Visit: Yes Status: Acute (3) Alcohol withdrawal Current Visit: Yes Status: Acute Qualifiers: Complication of substance-induced condition: with unspecified complication Qualified Code(s): F10.239 - Alcohol dependence with withdrawal, unspecified (4) Abdominal pain Current Visit: Yes Status: Acute Qualifiers: Abdominal location: generalized Qualified Code(s): R10.84 - Generalized abdominal pain (5) Urinary tract infection Current Visit: Yes Status: Ruled-out Qualifiers: Urinary tract infection type: acute cystitis Hematuria presence: without hematuria Qualified Code(s): N30.00 - Acute cystitis without hematuria (6) Hypokalemia Current Visit: No Status: Resolved (7) Hyponatremia Current Visit: No Status: Chronic (8) DVT prophylaxis Current Visit: No Status: Acute - Constitutional Vitals: Temp Pulse Resp BP Pulse Ox 97.8 F 81 18 153/90 100 11/25/17 11:20 11/25/17 11:20 11/25/17 11:20 11/25/17 11:20 11/25/17 11:20 Internal Medicine: Result - Labs CBC & Chem 7: 11/25/17 05:58 11/25/17 05:58 Labs: Short CBC 11/25/17 Range/Units 05:58 WBC 16.7 H (4.3-11.1) K/mcL Hgb 9.3 L (11.5-15.4) g/dL Hct 28.7 L (35.3-44.9) % Plt Count TNP Neutrophils # 14.5 H (1.6-8.9) K/mcL BMP 11/25/17 05:58 Sodium 131 L Potassium 3.8 Chloride 98 Carbon Dioxide 27 BUN 8 Creatinine 0.39 L Glucose 101 Calcium 8.3 L Liver Function 11/25/17 Range/Units 15:35 GGT 924 H (1-24) Units/L - ABG Interpretation ABG results: PT/INR, D-dimer PT 10.1 Seconds (9.4-12.1) 11/22/17 14:58 - Attending Attestation I examined this patient and my medical decision-making was reviewed with the Resident Physician. I agree with the documented findings, disposition and treatment plan as described except to the extent set forth below. 57 F, known alcohol abuse, chronic resp failure on home O2, COPD, chronic hyponatremia, anemia, admitted and being managed for acute on chronic bronchiolitis, abdominal pain, Suspected UTI. She reports feeling "this morning, and sees her cough has minimally improved. Chest examination shows increased improved air entry bilaterally. leukocytosis is improving Hypokalemia has resolved continue current care, GGT sent to evaluate for elevated alkaline phosphatase, GGT greater than 900. Obtain MRCP, consult gastroenterology. Patient's withdrawal symptom is improving, discontinue Ativan. Increase Librium. Fall precautions and PTOT evaluation. alcohol-picture transaminitis , gallbladder USS with hepatic steatosis, no features of cholecystitis or choledocholithiasis Continue to monitor rest as in resident physician's documentation
[2017-11-25] MEDS: Budesonide/Formoterol 160/4.5 MDI IH SCH ×2 (11:04→20:21)
[2017-11-25 16:08] LABS: Mean Platelet Volume 9.4 fL (9.4-12.4)
[2017-11-25] MEDS: *HR* OxyCODONE Immed Rel 5 MG TABLET PO PRN (20:02)
[2017-11-26] MEDS: MetroNIDAZOLE 500 MG/100 ML 500 MG/100 ML BAG IVPB SCH ×4 (00:30→17:22)
[2017-11-26 04:09] LABS: Basophils % 0.1 %; Eosinophils % 0.1 %; Hematocrit 28.6 % (35.3-44.9); Hemoglobin 9.5 g/dL (11.5-15.4); Immature Granulocytes % 1.3 % (0-4); Lymphocytes # 1.9 K/mcL (0.6-4.6); Mean Corpuscular HGB Conc 33.2 g/dL (31.6-35.5); Mean Corpuscular Hemoglobin 33.2 pg (28.0-33.3); Mean Platelet Volume 10.8 fL (9.4-12.4); Monocytes # 0.9 K/mcL (0.0-1.3); Monocytes % 5.7 %; Neutrophils # 12.8 K/mcL (1.6-8.9); Platelet Count 175 K/mcL (140-400); Red Blood Count 2.86 M/mcL (3.82-4.97); Red Cell Distribution Width 13.2 % (11.5-14.5); Segmented Neutrophils % 80.8 %
[2017-11-26 04:30] LABS: BUN/Creatinine Ratio 27 (6-26); Blood Urea Nitrogen 12 mg/dL (6-20); Calcium 8.2 mg/dL (8.6-10.3); Carbon Dioxide 31 mEq/L (23-29); Chloride 96 mEq/L (98-107); Glucose 147 mg/dL (70-105); Osmolality,Calculated 276 (280-300); Potassium 4.4 mEq/L (3.5-5.1); Sodium 132 mEq/L (136-145); eGFR For African Americans > 60 (> 60); eGFR For Non-African Americans > 60 (> 60)
[2017-11-26] MEDS: *HR* Enoxaparin 40 MG/0.4 ML SYRINGE SQ SCH (05:13)
[2017-11-26] MEDS: Budesonide/Formoterol 160/4.5 MDI IH SCH ×2 (07:48→20:58)
[2017-11-26] MEDS: (Ipratropium/Albuterol Sulfate [Combivent Respimat In IH SCH ×4 (08:55→17:17)
[2017-11-26] MEDS: cefTRIAXone 1,000 MG in Water for inj. (sterile) 20 ML 10 ML IVP SCH (09:03)
[2017-11-26] MEDS: Fluticasone Propionate Nasal 50 MCG/SPRAY BOTTLE NS SCH (09:04)
[2017-11-26] MEDS: predniSONE 20 MG TABLET PO SCH (09:04)
[2017-11-26] MEDS: Folic Acid 1 MG TABLET PO SCH (09:04)
[2017-11-26] MEDS: Thiamine (B-1) 100 MG TABLET PO SCH (09:04)
[2017-11-26] MEDS: Vitamin B Complex/Vit C/Vit E 1 EACH TABLET PO SCH (09:04)
[2017-11-26] MEDS: Metoprolol XL (24 HR) Succ 50 MG TAB.ER.24H PO SCH (09:04)
[2017-11-26] MEDS: amLODIPine 5 MG TABLET PO SCH (09:04)
[2017-11-26] MEDS: Azithromycin 250 MG in D5% in Water 250 ML IVPB SCH (10:29)
--- NOTE | 2017-11-26 13:44 | Internal Med Progress Note ---
<Sergei Lyons - Last Filed: 11/26/17 13:41> Date of Encounter: 11/26/17 Time of Encounter: 09:30 - Assessment and plan (1) Pneumonia Current Visit: Yes Status: Suspected Assessment and plan: Suspected aspiration pneumonia vs. COPD Exacerbation. Patient still complaining of cough with production of yellow sputum that has not improved since yesterday. Patient has been afebrile. - Day 3 of azithromycin and Flagyl. Plan to continue continue for 2 more days. Qualifiers: Pneumonia type: aspiration pneumonia Aspiration pneumonia type: due to gastric secretions Laterality: unspecified laterality Lung location: unspecified part of lung Qualified Code(s): J69.0 - Pneumonitis due to inhalation of food and vomit (2) Bronchiolitis Current Visit: Yes Status: Acute Assessment and plan: Patient's wheezing has improved. - Discontinue prednisone. - Continue ceftriaxone day #5. (3) Alcohol withdrawal Current Visit: Yes Status: Acute Assessment and plan: Patient seemed more somnolent than usual. - Decreased Librium to 25 mg twice a day. - On CIWA protocol. Qualifiers: Complication of substance-induced condition: with unspecified complication Qualified Code(s): F10.239 - Alcohol dependence with withdrawal, unspecified (4) Abdominal pain Current Visit: Yes Status: Acute Assessment and plan: Acute abdominal pain secondary to UTI vs. Hepatic steatosis. US Gallbladder showed fatty hepatic infiltrate, but no gallbladder disease. GGT was ordered yesterday and revealed to be elevated. Was followed up with MRCP that revealed no biliary obstruction. Alkaline phosphatase was elevated previously, possibly linked to hypocalcemia/low vitamin D. - Vitamin D level is pending. Qualifiers: Abdominal location: generalized Qualified Code(s): R10.84 - Generalized abdominal pain (5) Urinary tract infection Current Visit: Yes Status: Ruled-out Assessment and plan: Patient afebrile. Denies any dysuria or hematuria. - Day #5 of ceftriaxone. Qualifiers: Urinary tract infection type: acute cystitis Hematuria presence: without hematuria Qualified Code(s): N30.00 - Acute cystitis without hematuria (6) Hyponatremia Current Visit: No Status: Chronic Assessment and plan: Stable. Continue to monitor. (7) DVT prophylaxis Current Visit: No Status: Acute Assessment and plan: Creatinine levels are normal. Continue with Lovenox. - Subjective Interval history: Ms. Rodriguez is a 57 year old female with a past medical history of COPD, hypertension, liver disease, TIA, and alcoholism that presents for abdominal pain. When seen today patient said her cough has been the same since yesterday. She denies any abdominal pain and says that her shortness of breath has improved since yesterday. She denies any fever, nausea, or vomiting. - Constitutional Vitals: Temp Pulse Resp BP Pulse Ox 98.2 F 98 15 142/77 98 11/26/17 11:16 11/26/17 11:16 11/26/17 11:16 11/26/17 11:16 11/26/17 11:16 General appearance: Present: A&O X 3, no acute distress, underweight, answers questions appropriately - Respiratory Respiratory exam: Present: wheezes (Improved from yesterday. Bilateral.). Absent: tachypnea - Cardiovascular Cardiovascular exam: Present: RRR, +S1, +S2. Absent: diastolic murmur, gallop, rubs, systolic murmur - GI/Abdominal GI/Abdominal exam: Present: normal bowel sounds, soft, no peritoneal signs. Absent: distended, guarding, rebound, tenderness - Extremities Exam Extremities exam: Present: full ROM, normal capillary refill, warm, radial pulses palpable and symmetrical. Absent: calf tenderness, cyanotic, pedal edema , tenderness Internal Medicine: Result - Labs CBC & Chem 7: 11/26/17 03:30 11/26/17 03:30 Labs: Short CBC 11/26/17 Range/Units 03:30 WBC 15.9 H (4.3-11.1) K/mcL Hgb 9.5 L (11.5-15.4) g/dL Hct 28.6 L (35.3-44.9) % Plt Count 175 (140-400) K/mcL Neutrophils # 12.8 H (1.6-8.9) K/mcL BMP 11/26/17 03:30 Sodium 132 L Potassium 4.4 Chloride 96 L Carbon Dioxide 31 H BUN 12 Creatinine 0.45 L Glucose 147 H Calcium 8.2 L Liver Function 11/25/17 Range/Units 15:35 GGT 924 H (1-24) Units/L - ABG Interpretation ABG results: PT/INR, D-dimer PT 10.1 Seconds (9.4-12.1) 11/22/17 14:58 - Impressions Impressions Abdomen MRI 11/25/17 16:44 IMPRESSION: 1. Mild nonspecific prominence of the common hepatic duct and right hepatic duct. 2. Normal caliber of the intrahepatic bile ducts and the common bile duct. 3. No evidence of cholelithiasis or choledocholithiasis. 4. Hepatic steatosis. D/ / 11/25/2017 22:16:35 Jennifer Brock MD / [facility] Interpreting Provider: Jennifer Brock MD Consult Discharge Plan - Plan Referrals: Terrie Joseph CNP [Primary Care Provider] - 11/30/17 10:30 am () Wilver Tony MD [Partnered Physician] - 12/22/17 3:50 pm () <Alfredito Romero T - Last Filed: 11/26/17 14:12> Date of Encounter: 11/26/17 - Assessment and plan (1) Pneumonia Current Visit: Yes Status: Suspected Qualifiers: Pneumonia type: aspiration pneumonia Aspiration pneumonia type: due to gastric secretions Laterality: unspecified laterality Lung location: unspecified part of lung Qualified Code(s): J69.0 - Pneumonitis due to inhalation of food and vomit (2) Bronchiolitis Current Visit: Yes Status: Acute (3) Alcohol withdrawal Current Visit: Yes Status: Acute Qualifiers: Complication of substance-induced condition: with unspecified complication Qualified Code(s): F10.239 - Alcohol dependence with withdrawal, unspecified (4) Abdominal pain Current Visit: Yes Status: Acute Qualifiers: Abdominal location: generalized Qualified Code(s): R10.84 - Generalized abdominal pain (5) Urinary tract infection Current Visit: Yes Status: Ruled-out Qualifiers: Urinary tract infection type: acute cystitis Hematuria presence: without hematuria Qualified Code(s): N30.00 - Acute cystitis without hematuria (6) Hypokalemia Current Visit: No Status: Resolved (7) Hyponatremia Current Visit: No Status: Chronic (8) DVT prophylaxis Current Visit: No Status: Acute - Constitutional Vitals: Temp Pulse Resp BP Pulse Ox 98.2 F 98 15 142/77 98 11/26/17 11:16 11/26/17 11:16 11/26/17 11:16 11/26/17 11:16 11/26/17 11:16 Internal Medicine: Result - Labs CBC & Chem 7: 11/26/17 03:30 11/26/17 03:30 Labs: Short CBC 11/26/17 Range/Units 03:30 WBC 15.9 H (4.3-11.1) K/mcL Hgb 9.5 L (11.5-15.4) g/dL Hct 28.6 L (35.3-44.9) % Plt Count 175 (140-400) K/mcL Neutrophils # 12.8 H (1.6-8.9) K/mcL BMP 11/26/17 03:30 Sodium 132 L Potassium 4.4 Chloride 96 L Carbon Dioxide 31 H BUN 12 Creatinine 0.45 L Glucose 147 H Calcium 8.2 L Liver Function 11/25/17 Range/Units 15:35 GGT 924 H (1-24) Units/L - ABG Interpretation ABG results: PT/INR, D-dimer PT 10.1 Seconds (9.4-12.1) 11/22/17 14:58 - Impressions Impressions Abdomen MRI 11/25/17 16:44 IMPRESSION: 1. Mild nonspecific prominence of the common hepatic duct and right hepatic duct. 2. Normal caliber of the intrahepatic bile ducts and the common bile duct. 3. No evidence of cholelithiasis or choledocholithiasis. 4. Hepatic steatosis. D/ / 11/25/2017 22:16:35 Jennifer Brock MD / [facility] Interpreting Provider: Jennifer Brock MD - Attending Attestation I examined this patient and my medical decision-making was reviewed with the Resident Physician. I agree with the documented findings, disposition and treatment plan as described except to the extent set forth below. Patient is seen and examined at the bedside this morning, she is very drowsy but she is arousable and is able to complete sentences. She reports that her cough is improving. Chest examination shows improved air entry. He is oriented 3. Her leukocytosis is improving as well as a hyponatremia and hypokalemia. Her MRI done due to elevated alkaline phosphatase with elevated GGT reveals hepatic steatosis, mild nonspecific prominence of the common hepatitic duct and right hepatic duct, normal caliber of the intrahepatic bile ducts and common bile duct. With no choledocholithiasis or cholecystitis. Patient is stable off benzodiazepines, decrease Librium to 50 mg twice a day, discontinue prednisone she has had 5 days. Continue azithromycin and Flagyl for 5 more days, continue ceftriaxone, urine culture noted for mixed shorty we will give ceftriaxone for 7 days for empiric treatment of urinary tract infection and suspected aspiration pneumonia. We are still awaiting review of physical and occupational therapy due to recurrent falls. Rest of details is as in the resident physicians documentation. Aspiration pneumonia is likely present on admission due to evidence of right middle and lower lobe bronchiolitis in nonalcoholic with symptomatic chest problems.
[2017-11-27] MEDS: MetroNIDAZOLE 500 MG/100 ML 500 MG/100 ML BAG IVPB SCH ×3 (00:14→11:40)
[2017-11-27 03:56] LABS: Basophils % 0.2 %; Eosinophils % 0.1 %; Hematocrit 28.4 % (35.3-44.9); Hemoglobin 9.5 g/dL (11.5-15.4); Immature Granulocytes % 2.3 % (0-4); Lymphocytes # 1.4 K/mcL (0.6-4.6); Lymphocytes % 10.3 %; Mean Corpuscular HGB Conc 33.5 g/dL (31.6-35.5); Mean Corpuscular Hemoglobin 33.6 pg (28.0-33.3); Mean Corpuscular Volume 100.4 fL (83.0-100.0); Mean Platelet Volume 12.3 fL (9.4-12.4); Monocytes # 1.1 K/mcL (0.0-1.3); Neutrophils # 10.8 K/mcL (1.6-8.9); Platelet Count 108 K/mcL (140-400); Red Blood Count 2.83 M/mcL (3.82-4.97); Red Cell Distribution Width 13.8 % (11.5-14.5); Segmented Neutrophils % 79.1 %
[2017-11-27 04:03] LABS: BUN/Creatinine Ratio 31 (6-26); Blood Urea Nitrogen 11 mg/dL (6-20); Calcium 8.2 mg/dL (8.6-10.3); Carbon Dioxide 30 mEq/L (23-29); Chloride 95 mEq/L (98-107); Glucose 171 mg/dL (70-105); Osmolality,Calculated 275 (280-300); Potassium 3.9 mEq/L (3.5-5.1); Sodium 131 mEq/L (136-145); eGFR For African Americans > 60 (> 60); eGFR For Non-African Americans > 60 (> 60)
[2017-11-27] MEDS: *HR* Enoxaparin 40 MG/0.4 ML SYRINGE SQ SCH (06:07)
[2017-11-27] MEDS: Azithromycin 250 MG in D5% in Water 250 ML IVPB SCH (06:08)
[2017-11-27] MEDS: Budesonide/Formoterol 160/4.5 MDI IH SCH (07:25)
[2017-11-27] MEDS: cefTRIAXone 1,000 MG in Water for inj. (sterile) 20 ML 10 ML IVP SCH (07:50)
[2017-11-27] MEDS: Vitamin B Complex/Vit C/Vit E 1 EACH TABLET PO SCH (07:50)
[2017-11-27] MEDS: Thiamine (B-1) 100 MG TABLET PO SCH (07:50)
[2017-11-27] MEDS: amLODIPine 5 MG TABLET PO SCH (07:51)
[2017-11-27] MEDS: Metoprolol XL (24 HR) Succ 50 MG TAB.ER.24H PO SCH (07:51)
[2017-11-27] MEDS: Fluticasone Propionate Nasal 50 MCG/SPRAY BOTTLE NS SCH (07:51)
[2017-11-27] MEDS: (Ipratropium/Albuterol Sulfate [Combivent Respimat In IH SCH ×2 (07:51→11:37)
[2017-11-27] MEDS: Folic Acid 1 MG TABLET PO SCH (07:51)
[2017-11-27] MEDS: Ipratropium/Albuterol Neb 3 ML IH PRN (11:52)
[2017-11-27 15:14] VITALS: BP 133/81
--- NOTE | 2017-11-27 17:36 | Discharge Summary ---
- NOTES TO OUTPATIENT PROVIDER Notes to Outpatient Provider: complete 3 more days of flagyl and azithroymcin for PNA, she has completed her course of antibiotcs for UTI and pneumonia Orders not resulted at time of discharge: Pending orders 11/24/17 12:38 Culture,Blood [BC] Routine Culture,Blood,Additional [BC] Routine Date of Encounter: 11/27/17 Time of Encounter: 12:00 - Discharge Diagnosis (1) Pneumonia Priority: Primary Status: Suspected Qualifiers: Pneumonia type: aspiration pneumonia Aspiration pneumonia type: due to gastric secretions Laterality: unspecified laterality Lung location: unspecified part of lung Qualified Code(s): J69.0 - Pneumonitis due to inhalation of food and vomit (2) Bronchiolitis Priority: Primary Status: Acute (3) Alcohol withdrawal Priority: Primary Status: Resolved Qualifiers: Complication of substance-induced condition: with unspecified complication Qualified Code(s): F10.239 - Alcohol dependence with withdrawal, unspecified (4) Abdominal pain Priority: Primary Status: Resolved Qualifiers: Abdominal location: generalized Qualified Code(s): R10.84 - Generalized abdominal pain (5) Urinary tract infection Priority: Primary Status: Ruled-out Qualifiers: Urinary tract infection type: acute cystitis Hematuria presence: without hematuria Qualified Code(s): N30.00 - Acute cystitis without hematuria (6) Hypokalemia Priority: Primary Status: Resolved (7) Hyponatremia Priority: Secondary Status: Chronic (8) DVT prophylaxis Priority: Primary Status: Acute Hospital course: Ms. Rodriguez is a 57 year old female with medical history of chronic resp failure on home O2, alcohol abuse , HTN, Dpression who presented with nausea, vomiting and abdominal pain, suspected to be due to Urinary tract infection, rule out biliary disease. She also has hepatic steatosis and suspetected liver cirrhosis. She was managed with IVF hydration, IV antibiotics. Her admitting chest CT scan had showed a suspected acute on chornic bronchiolitis but her syptoms only impeoved after treatement for pneumonia. Her urine cuture was mixed and her urine legionella and Stre Ag were negative, blood culture was negative Regarding her chronically elevated ALP, we checked her GGT and it was elevated, MRI did not show distended biliary system, nor did it show presence of stones. She had a fall in-patient without any injury. PTOT evaluated and patient was recommended to go to rehab, ECF/SNF She has persistently refused saying she can go home and her boyfriend can take care of her, this is despite her being very unstable on her feet. She has also declined rehab for alcohola abuse She was seen and examined this mornng, her chest and abdominal sympotms have reolved, she is at her baseline state of health. She also had multiple electrolyte derangement, her potassium was replaced and has been normal, her hyponatremia is chronic She is medically stable to be discharged home to follow up with her PCP She needs to complete 3 more days of oral antibiotics at home Discharge discussed with: patient - Time Spent with Patient Total time spent providing and/or coordinating discharge services: Greater than 30 minutes - Discharge Medications Prescriptions: Azithromycin 250 mg PO DAILY #3 tablet Chlordiazepoxide [Librium] 25 mg PO BID 5 Days #10 capsule metroNIDAZOLE [Flagyl] 500 mg PO TID #9 tablet Home Medications: Albuterol Neb [Proventil Neb] 2.5 mg IH TID PRN 06/09/16 [History] Budesonide/Formoterol 160/4.5 [Symbicort 160/4.5] 2 puff IH BIDR 06/09/16 [ History] Fluticasone Propionate Nasal [Flonase] 2 spray NS DAILY 06/09/16 [History] Ipratropium/Albuterol Sulfate [Combivent Respimat Inhal [place]] 1 puff IH QID [History] Omeprazole [PriLOSEC] 20 mg PO DAILY 06/09/16 [History] Paroxetine HCl [Paroxetine] 40 mg PO DAILY 06/09/16 [History] amLODIPine [Norvasc] 5 mg PO DAILY 06/09/16 [History] Aspirin [Lo-Dose Aspirin EC] 81 mg PO DAILY 08/02/16 [History] Potassium Chloride [K-Tab ER] 20 meq PO DAILY 04/16/17 [History] Buspirone HCl [Buspar] 10 mg PO BID 06/08/17 [History] Metoprolol Succinate 100 mg PO DAILY 06/21/17 [History] Cetirizine HCl [Zyrtec] 10 mg PO DAILY 09/13/17 [History] Guaifenesin [Mucinex] 600 mg PO Q12H 09/13/17 [History] Oxygen 2 l NS AD 09/13/17 [History] Azithromycin 250 mg PO DAILY #3 tablet 11/27/17 [Rx] Chlordiazepoxide [Librium] 25 mg PO BID 5 Days #10 capsule 11/27/17 [Rx] Folic Acid 1 mg PO DAILY tablet 11/27/17 [Rx] Omeprazole [PriLOSEC] 40 mg PO DAILY@0630 capsule. 11/27/17 [Rx] Thiamine (B-1) [Vitamin B-1] 100 mg PO DAILY tablet 11/27/17 [Rx] Vitamin B Complex/Vit C/Vit E [Stresstab] 1 each PO DAILY tablet 11/27/17 [Rx] metroNIDAZOLE [Flagyl] 500 mg PO TID #9 tablet 11/27/17 [Rx] Allergies/Adverse Reactions: 3 Allergy/AdvReac Type Severity Reaction Status Date / Time No Known Allergies Allergy Verified 11/07/17 16:03 Date of admission: 11/23/17 10:48 Primary care physician: Terrie Joseph CNP Consults: 11/25/17 10:42 Consult to Physical Therapy [CONS] Routine Comment: Evaluate, develop and implement POC Reason for Consult: s/p fall Does patient have active BEDREST order?: No Is patient medically & hemodynamically stable?: Yes Patient assessed for mobility or mobilized this visit?: Yes OT [Consult to Occupational Therapy] [CONS] Routine Comment: Evaluate, develop and implement POC Reason for Consult: s/p fall Does patient have active BEDREST order?: No Is patient medically & hemodynamically stable?: Yes Patient assessed for mobility or mobilized this visit?: Yes Discharging clinician: Alfredito Romero Anticipated date of discharge: 11/27/17 - Constitutional Vitals: Temp Pulse Resp BP Pulse Ox 98.1 F 80 16 133/81 95 11/27/17 15:10 11/27/17 15:10 11/27/17 15:10 11/27/17 15:10 11/27/17 15:10 General appearance: Present: cachectic, A&O X 3, no acute distress, underweight , answers questions appropriately - Head Head exam: Present: atraumatic, normocephalic - Eye Eye exam: Present: PERRL, conjuntiva pink, sclera anicteric Pupils: Present: PERRL - Neck Neck exam general surgery: Present: supple, trachea midline. Absent: lymphadenopathy - Respiratory Respiratory exam: Present: CTAB. Absent: accessory muscle use, rales, rhonchi, wheezes - Cardiovascular Cardiovascular exam: Present: RRR, +S1, +S2. Absent: diastolic murmur, gallop, rubs, systolic murmur - GI/Abdominal GI/Abdominal exam: Present: normal bowel sounds, soft, no peritoneal signs. Absent: distended, tenderness - Extremities Exam Extremities exam: Present: warm, radial pulses palpable and symmetrical. Absent : calf tenderness, cyanotic, pedal edema - Neurological Exam Neurological exam: Present: alert, CN II-XII intact, oriented X3, no focal deficits. Absent: pronater drift, facial droop, speech deficit - Skin Skin exam: Present: dry, intact - Patient Status Disposition: Home, Self-Care Condition: Fair Functional capacity at discharge: uses cane/walker - Discharge Instructions Follow Up With: Terrie Joseph CNP [Primary Care Provider] - 11/30/17 10:30 am () Wilver Tony MD [Partnered Physician] - 12/22/17 3:50 pm () - Diet and Activity Activity: resume usual activities as tolerated, wear oxygen at all times Diet: low fat, low cholesterol, low salt diet
== END 2017-11-27 19:18 | disposition home or self-care (01) | DRG 178 ==
LOC: EMEROO 14:46 → 2NNU 14:46 → SUATTDRO 19:02 → 2NNU 20:02 → 2ANU 11-26 19:47
PROVIDERS: ADMIT Internal Medicine; ATTEND Internal Medicine

== ENCOUNTER 2017-12-30 13:34 | Inpatient (IN) ==
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
[2017-12-30 14:26] LABS: INR 1.1; Prothrombin Time 11.6 Seconds (9.4-12.1)
[2017-12-30 14:39] LABS: Troponin I 0.03 ng/mL (< 0.04)
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
[2017-12-30 14:47] LABS: Alanine Aminotransferase 42 Units/L (7-52); Albumin 3.6 g/dL (3.5-5.7); Albumin/Globulin Ratio 1.2 (1.1-2.2); Alkaline Phosphatase 909 Units/L (34-104); Aspartate Amino Transferase 50 Units/L (13-39); BUN/Creatinine Ratio 29 (6-26); Bilirubin,Total 1.4 mg/dL (0.3-1.0); Blood Urea Nitrogen 9 mg/dL (6-20); Calcium 8.3 mg/dL (8.6-10.3); Carbon Dioxide 21 mEq/L (23-29); Chloride 92 mEq/L (98-107); Globulin 2.9 g/dL (2.4-3.5); Glucose 140 mg/dL (70-105); Magnesium 1.6 mg/dL (1.6-2.6); Osmolality,Calculated 263 (280-300); Potassium 3.6 mEq/L (3.5-5.1); Sodium 126 mEq/L (136-145); Total Protein 6.5 g/dL (6.4-8.9); eGFR For African Americans > 60 (> 60); eGFR For Non-African Americans > 60 (> 60)
[2017-12-30] MEDS ORDERED: Oxymetazoline Nasal SPRAY BOTTLE NS ONE (14:52)
[2017-12-30] MEDS ORDERED: Acetaminophen 325 MG TABLET PO ONE (14:59)
[2017-12-30 15:37] LABS: Basophils % 0.3 %; Eosinophils % 0.1 %; Hematocrit 29.4 % (35.3-44.9); Hemoglobin 9.8 g/dL (11.5-15.4); Immature Granulocytes % 0.6 % (0-4); Lymphocytes # 1.5 K/mcL (0.6-4.6); Mean Corpuscular HGB Conc 33.3 g/dL (31.6-35.5); Mean Corpuscular Hemoglobin 34.8 pg (28.0-33.3); Mean Corpuscular Volume 104.3 fL (83.0-100.0); Monocytes # 0.7 K/mcL (0.0-1.3); Monocytes % 6.1 %; Neutrophils # 9.4 K/mcL (1.6-8.9); Red Blood Count 2.82 M/mcL (3.82-4.97); Red Cell Distribution Width 16.4 % (11.5-14.5); Segmented Neutrophils % 79.9 %
[2017-12-30] MEDS: Ipratropium/Albuterol Neb 3 ML IH SCH ×2 (17:15→22:20)
[2017-12-30 17:51] LABS: Ethanol < 10 mg/dL (Less than 10)
[2017-12-30] MEDS ORDERED: Naloxone 0.4 MG/ML INJ IVP PRN (18:12)
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
[2017-12-30] MEDS ORDERED: NON-FORMULARY MEDICATION 1 EACH EACH (Oxygen [Oxygen] 2 L) NS SCH (18:15)
[2017-12-30] MEDS ORDERED: Azithromycin 250 MG TABLET PO ONE (18:18)
[2017-12-30] MEDS: *HR* HYDROcodone/Acet 5/325 mg TABLET PO PRN (18:42)
[2017-12-30] MEDS: Nicotine 14 MG PATCH.TD24 TD SCH (20:53)
[2017-12-30] MEDS: (Ipratropium/Albuterol Sulfate [Combivent Respimat In IH SCH (20:55)
[2017-12-30] MEDS: Acetaminophen 325 MG TABLET PO PRN (21:03)
[2017-12-30] MEDS: Budesonide/Formoterol 160/4.5 MDI IH SCH (22:19)
[2017-12-31] MEDS: *HR* HYDROcodone/Acet 5/325 mg TABLET PO PRN ×2 (01:07→09:57)
[2017-12-31] MEDS: MethylPREDNISolone 40 MG/ML VIAL IVP SCH ×4 (01:31→17:16)
[2017-12-31] MEDS: *HR* LORazepam 2 MG/ML VIAL IVP PRN ×2 (01:54→12:16)
[2017-12-31] MEDS: Ipratropium/Albuterol Neb 3 ML IH SCH ×4 (04:25→23:28)
[2017-12-31 07:08] LABS: Basophils % 0.1 %; Hematocrit 27.7 % (35.3-44.9); Hemoglobin 9.1 g/dL (11.5-15.4); Immature Granulocytes % 0.7 % (0-4); Lymphocytes # 0.3 K/mcL (0.6-4.6); Mean Corpuscular HGB Conc 32.9 g/dL (31.6-35.5); Mean Corpuscular Volume 103.4 fL (83.0-100.0); Monocytes # 0.1 K/mcL (0.0-1.3); Monocytes % 0.6 %; Neutrophils # 9.3 K/mcL (1.6-8.9); Red Blood Count 2.68 M/mcL (3.82-4.97); Red Cell Distribution Width 15.8 % (11.5-14.5); Segmented Neutrophils % 95.6 %
[2017-12-31 07:23] LABS: BUN/Creatinine Ratio 15 (6-26); Blood Urea Nitrogen 8 mg/dL (6-20); Calcium 8.1 mg/dL (8.6-10.3); Carbon Dioxide 19 mEq/L (23-29); Chloride 89 mEq/L (98-107); Glucose 254 mg/dL (70-105); Osmolality,Calculated 259 (280-300); Potassium 4.1 mEq/L (3.5-5.1); Sodium 121 mEq/L (136-145); eGFR For African Americans > 60 (> 60); eGFR For Non-African Americans > 60 (> 60)
[2017-12-31] MEDS: Nicotine 14 MG PATCH.TD24 TD SCH (08:43)
[2017-12-31] MEDS: Vitamin B Complex/Vit C/Vit E 1 EACH TABLET PO SCH (08:44)
[2017-12-31] MEDS: Azithromycin 250 MG TABLET PO SCH (08:44)
[2017-12-31] MEDS: Multivit/Ca/Min/Fe/FA 1 TAB TABLET PO SCH (08:44)
[2017-12-31] MEDS: Loratadine 10 MG TABLET PO SCH (08:44)
[2017-12-31] MEDS: Metoprolol XL (24 HR) Succ 25 MG TAB.ER.24H PO SCH (08:44)
[2017-12-31] MEDS: (Ipratropium/Albuterol Sulfate [Combivent Respimat In IH SCH ×3 (08:45→17:11)
[2017-12-31 09:27] LABS: Mean Platelet Volume 8.9 fL (9.4-12.4)
[2017-12-31] MEDS: Budesonide/Formoterol 160/4.5 MDI IH SCH ×2 (10:05→23:28)
[2017-12-31] MEDS: Ibuprofen 200 MG TABLET PO PRN (12:16)
--- NOTE | 2017-12-31 14:21 | Internal Med Progress Note ---
Date of Encounter: 12/31/17 Time of Encounter: 14:18 - Assessment and plan (1) Elevated LFTs Current Visit: Yes Status: Chronic Assessment and plan: Chronic Fatty liver. Alcoholism as a contributing factor. Continue to monitor, stable (2) Alcohol abuse Current Visit: Yes Status: Chronic Assessment and plan: Chronic. Alcohol cessation education. Multivitamin with folic acid and thiamine. History of alcohol withdrawal in the past denied per patient. She states she just left [place] [facility] after 2 week stay on burn unit [facility], Ativan as needed. (3) Compression fracture of body of thoracic vertebra Current Visit: Yes Status: Acute Assessment and plan: Recent fall. T12 acute on chronic compression fracture. No associated neurological deficit. Pain management by oral narcotic. Consulted spine surgeon who advised MRI without contrast lumbar and thoracic spine. MRI reported mild degenerative changes with chronic appearing compression fracture deformity of T12 resulting in near complete loss of vertebral body height anteriorly. Orthopedic surgeon discussed nonoperative treatment and kyphoplasty of T12. The patient has agreed for kyphoplasty on Wednesday as an add-on case PT to follow once cleared by orthopedic surgery (4) COPD (chronic obstructive pulmonary disease) Current Visit: Yes Status: Acute Assessment and plan: bronchitis and flare of COPD. Continue Solu-Medrol 40 mg every 6 hours, duonebs, oxygen supplementation, Z-Edwin Qualifiers: COPD type: COPD with acute exacerbation Qualified Code(s): J44.1 - Chronic obstructive pulmonary disease with (acute) exacerbation (5) Periorbital contusion of right eye Current Visit: Yes Status: Acute Assessment and plan: Due to recent fall. CT of brain with no acute finding. No change in vision. Continue to monitor Qualifiers: Encounter type: initial encounter Qualified Code(s): S05.11XA - Contusion of eyeball and orbital tissues, right eye, initial encounter (6) Debility Current Visit: Yes Status: Chronic Assessment and plan: likely due to chronic alcoholism. Patient is high risk for fall and had a recent falll. Need long-term placement with the help of 7th grade social studies teacher. (7) DVT prophylaxis Current Visit: Yes Status: Acute Assessment and plan: Continue SCDs (8) Hyponatremia Current Visit: Yes Status: Chronic Assessment and plan: Chronic. Most likely beer [place]. Serum osmolarity low. Continue to monitor BMP. Patient states this is a chronic problem for her and she has not taken her sodium tablets for a month or so. We will resume sodium tablets and monitor labs (9) Pseudothrombocytopenia Current Visit: Yes Status: Acute Assessment and plan: Check folate and vitamin B12 level Monitor lab work in the a.m. - Time Spent With Patient Total time spent is greater than 50% in coordination of care (as documented) at patient's floor/unit and/or counseling patient: - Subjective Interval history: Patient is sitting up in bed. She has some discomfort in her facial neely. [place] [facility] [place] [facility] according to her verbalized report. She states that she has chronic low sodium but has not been taking sodium tablets for some time. He also has date she drinks one sixpack of beer per night. She also stated that she would consider some placement at this time because she is not able to take care of herself at home. She states she has not ever been in withdrawal after stopping drinking. She denies chest pain or shortness of breath but has some chronic pain issues. - Constitutional Vitals: Temp Pulse Resp BP Pulse Ox 97.7 F 85 16 139/89 93 12/31/17 10:55 12/31/17 10:55 12/31/17 10:55 12/31/17 10:55 12/31/17 10:55 General appearance: Present: cooperative, A&O X 3, pleasant, answers questions appropriately - Head Head exam: Present: atraumatic, normocephalic Additional comments: Healing neely noted around her nose and mouth area from smoking with oxygen - Eye Eye exam: Present: PERRL, conjuntiva pink, sclera anicteric Pupils: Present: PERRL - Neck Neck exam general surgery: Present: supple, trachea midline. Absent: lymphadenopathy - Respiratory Respiratory exam: Present: CTAB. Absent: accessory muscle use, rales, rhonchi, wheezes - Cardiovascular Cardiovascular exam: Present: RRR, +S1, +S2. Absent: diastolic murmur, gallop, rubs, systolic murmur - GI/Abdominal GI/Abdominal exam: Present: normal bowel sounds, soft, no peritoneal signs. Absent: distended, tenderness - Extremities Exam Extremities exam: Present: pedal edema, warm, radial pulses palpable and symmetrical. Absent: calf tenderness, cyanotic - Neurological Exam Neurological exam: Present: alert, CN II-XII intact, oriented X3, no focal deficits. Absent: pronater drift, facial droop, speech deficit - Skin Skin exam: Present: dry, intact Internal Medicine: Result - Labs CBC & Chem 7: 12/31/17 06:14 12/31/17 06:14 Labs: Short CBC 12/31/17 Range/Units 06:14 WBC 9.7 (4.3-11.1) K/mcL Hgb 9.1 L (11.5-15.4) g/dL Hct 27.7 L (35.3-44.9) % Plt Count TNP Neutrophils # 9.3 H (1.6-8.9) K/mcL BMP 12/31/17 06:14 Sodium 121 L Potassium 4.1 Chloride 89 L Carbon Dioxide 19 L BUN 8 Creatinine 0.52 L Glucose 254 H Calcium 8.1 L - ABG Interpretation ABG results: PT/INR, D-dimer PT 11.6 Seconds (9.4-12.1) 12/30/17 14:01 - Impressions Impressions Lumbar Spine MRI 12/30/17 18:47 IMPRESSION: Mild degenerative changes as detailed above. D/ / Geovanni Banuelos MD / Geovanni Banuelos MD Interpreting Provider: Geovanni Banuelos MD Thoracic Spine MRI 12/30/17 18:47 IMPRESSION: Acute on chronic appearing compression fracture of T12 resulting in near complete loss of vertebral body height anteriorly. 4 mm of retropulsed bone resulting in mild to moderate focal narrowing of the spinal canal. No associated epidural hematoma or cord abnormality. The findings were sent to the [facility] at 8:42 pm on 12/30/2017to be communicated to a licensed caregiver. D/ / Geovanni Banuelos MD / Geovanni Banuelos MD Interpreting Provider: Geovanni Banuelos MD Consult Discharge Plan - Plan Referrals: Terrie Joseph, OFFICE MANAGER [Primary Care Provider] -
--- NOTE | 2017-12-31 14:27 | Spine Progress Note ---
Date of Encounter: 12/31/17 Time of Encounter: 14:25 Subjective Principal diagnosis: back pain, compression fracture Interval history: 57 yo women s/p fall now with significant back pain. AFVSS. She has tenderness over the thoracolumbar region but is neurovascularly intact. MRI reveals acute T12 compression Fracture with significant 70% loss of height. Impression: 1) Vertebral compression fractyre T12 2) Osteopenia Plan: Discissed non operative treatment and Kyphoplasty T12. Chad proceed with Kyphoplasty Wednesday as add on case after medical optimization and clearance by the Hospitalist/Medicine service. Objective Vital signs: Vital Signs Temp Pulse Resp BP Pulse Ox 12/31/17 10:55 97.7 F 85 16 139/89 93 12/31/17 10:09 16 163/86 95 12/31/17 07:37 95 12/31/17 06:59 98.8 F 89 16 163/86 95 12/31/17 04:28 16 100 12/31/17 03:07 98.3 F 93 16 143/79 92 12/30/17 23:27 98.9 F 84 16 139/69 94 12/30/17 22:20 14 98 12/30/17 20:44 99.1 F 91 16 137/81 96 12/30/17 19:01 98 20 132/85 96 12/30/17 16:59 104 20 144/104 96 Intake and Output 12/30/17 12/31/17 12/31/17 23:59 07:59 15:59 Intake Total 240 / 240 Balance 240 / 240 Intake: Oral 240 / 240 Other: Meal Dinner Breakfast Percent of Meal Consumed 10% 75% Stool Size Moderate Small Stool Consistency loose Stool Color Brown # Voids 1 1 # Urine Diapers 1 # Bowel Movements 1 2 # Bowel Movement Diapers 1 Weight 55.2 kg Patient Weight 12/31/17 23:59 Weight 55.2 kg - Labs CBC & BMP: 12/31/17 06:14 12/31/17 06:14 Labs: Abnormal lab results RBC 2.68 M/mcL (3.82-4.97) L 12/31/17 06:14 Hgb 9.1 g/dL (11.5-15.4) L 12/31/17 06:14 Hct 27.7 % (35.3-44.9) L 12/31/17 06:14 MCV 103.4 fL (83.0-100.0) H 12/31/17 06:14 MCH 34.0 pg (28.0-33.3) H 12/31/17 06:14 RDW 15.8 % (11.5-14.5) H 12/31/17 06:14 MPV 8.9 fL (9.4-12.4) L 12/31/17 09:15 Neutrophils # 9.3 K/mcL (1.6-8.9) H 12/31/17 06:14 Lymphocytes # 0.3 K/mcL (0.6-4.6) L 12/31/17 06:14 Sodium 121 mEq/L (136-145) L 12/31/17 06:14 Chloride 89 mEq/L (98-107) L 12/31/17 06:14 Carbon Dioxide 19 mEq/L (23-29) L 12/31/17 06:14 Creatinine 0.52 mg/dL (0.60-1.20) L 12/31/17 06:14 Glucose 254 mg/dL (70-105) H 12/31/17 06:14 POC Glucose 159 mg/dL (70-99) H 12/30/17 14:00 Calculated Osmolality 259 (280-300) L 12/31/17 06:14 Calcium 8.1 mg/dL (8.6-10.3) L 12/31/17 06:14 Total Bilirubin 1.4 mg/dL (0.3-1.0) H 12/30/17 14:01 AST 50 Units/L (13-39) H 12/30/17 14:01 Alkaline Phosphatase 909 Units/L (34-104) H 12/30/17 14:01 Consult Discharge Plan - Plan Referrals: Terrie Joseph, PIT SHOVEL OPERATOR [Primary Care Provider] -
--- NOTE | 2017-12-31 15:28 | Electrocardiograph Report ---
[address] [place] [address] Test Date: 2017-12-30 Pat Name: Montserrat Rodriguez Department: 103 Room: 3B23 Gender: F Social Security Specialist: CHENG : 1960 Requested By: Andrea Payne Order Number: [id number] Reading MD: Theresa Whiteside Measurements Intervals [place] Rate: 102 P: 52 MT: 168 QRS: 31 QRSD: 77 T: 58 QT: 322 QTc: 381 Interpretive Statements SINUS TACHYCARDIA Electronically Signed On 12-31-2017 15:26:20 EDT by Theresa Whiteside
[2017-12-31] MEDS: Acetaminophen 325 MG TABLET PO PRN (22:45)
[2018-01-01] MEDS: (Ipratropium/Albuterol Sulfate [Combivent Respimat In IH SCH ×5 (00:18→20:24)
[2018-01-01] MEDS: MethylPREDNISolone 40 MG/ML VIAL IVP SCH ×5 (00:33→23:14)
[2018-01-01 04:30] LABS: Immature Granulocytes % 0.8 % (0-4); Mean Corpuscular Volume 103.3 fL (83.0-100.0); Nucleated Red Blood Cells 0.2 /100 WBC (0)
[2018-01-01 04:32] LABS: Hematocrit 24.8 % (35.3-44.9); Hemoglobin 8.4 g/dL (11.5-15.4); Lymphocytes # 0.4 K/mcL (0.6-4.6); Lymphocytes % 4.1 %; Mean Corpuscular HGB Conc 33.9 g/dL (31.6-35.5); Monocytes # 0.3 K/mcL (0.0-1.3); Monocytes % 3.5 %; Red Cell Distribution Width 15.8 % (11.5-14.5); Segmented Neutrophils % 91.6 %
[2018-01-01 04:37] LABS: Neutrophils # 7.9 K/mcL (1.6-8.9)
[2018-01-01 04:48] LABS: BUN/Creatinine Ratio 11 (6-26); Blood Urea Nitrogen 5 mg/dL (6-20); Calcium 8.3 mg/dL (8.6-10.3); Carbon Dioxide 21 mEq/L (23-29); Chloride 94 mEq/L (98-107); Glucose 227 mg/dL (70-105); Osmolality,Calculated 266 (280-300); Potassium 4.1 mEq/L (3.5-5.1); Sodium 126 mEq/L (136-145); eGFR For African Americans > 60 (> 60); eGFR For Non-African Americans > 60 (> 60)
[2018-01-01 05:13] LABS: Folate 17.9 ng/mL (3.0-16.0)
[2018-01-01] MEDS: Ipratropium/Albuterol Neb 3 ML IH SCH ×4 (05:17→22:42)
[2018-01-01] MEDS: Acetaminophen 325 MG TABLET PO PRN (06:10)
[2018-01-01] MEDS ORDERED: *HR* Promethazine 25 MG/ML VIAL IVP ONE (09:08)
[2018-01-01] MEDS ORDERED: Ketorolac 15 MG/ML VIAL IVP ONE (09:10)
[2018-01-01] MEDS ORDERED: Lidocaine Viscous Oral Soln 15 ML SOLUTION MM PRN (09:13)
[2018-01-01] MEDS: Multivit/Ca/Min/Fe/FA 1 TAB TABLET PO SCH (09:40)
[2018-01-01] MEDS: Metoprolol XL (24 HR) Succ 25 MG TAB.ER.24H PO SCH (09:40)
[2018-01-01] MEDS: Vitamin B Complex/Vit C/Vit E 1 EACH TABLET PO SCH (09:40)
[2018-01-01] MEDS: Loratadine 10 MG TABLET PO SCH (09:40)
[2018-01-01] MEDS: Nystatin SUSP 5 ML UD.LIQ PO SCH ×4 (09:40→20:24)
[2018-01-01] MEDS: Nicotine 14 MG PATCH.TD24 TD SCH (09:40)
[2018-01-01] MEDS: Azithromycin 250 MG TABLET PO SCH (09:42)
[2018-01-01] MEDS: Budesonide/Formoterol 160/4.5 MDI IH SCH ×2 (11:22→22:42)
--- NOTE | 2018-01-01 12:05 | Internal Med Progress Note ---
Date of Encounter: 01/01/18 Time of Encounter: 12:03 - Assessment and plan (1) Elevated LFTs Current Visit: Yes Status: Chronic Assessment and plan: Chronic Fatty liver. Alcoholism a contributing factor. Will recheck levels in the a.m. (2) Alcohol abuse Current Visit: Yes Status: Chronic Assessment and plan: Chronic. Alcohol cessation education. continue Multivitamin with folic acid and thiamine. History of alcohol withdrawal in the past denied per patient. She states she just left [place] [facility] after 2 week stay on their burn unit [facility], Ativan not needed. (3) Compression fracture of body of thoracic vertebra Current Visit: Yes Status: Acute Assessment and plan: Recent fall. T12 acute on chronic compression fracture. No associated neurological deficit. Pain management by oral narcotic. Consulted spine surgeon who advised MRI without contrast lumbar and thoracic spine. MRI reported mild degenerative changes with chronic appearing compression fracture deformity of T12 resulting in near complete loss of vertebral body height anteriorly. Orthopedic surgeon discussed nonoperative treatment and kyphoplasty of T12. The patient has agreed for kyphoplasty on Wednesday PT to follow once cleared by orthopedic surgery (4) COPD (chronic obstructive pulmonary disease) Current Visit: Yes Status: Acute Assessment and plan: bronchitis and flare of COPD, decrease Solu-Medrol, continue duonebs, oxygen supplementation, complete Z-Edwin Qualifiers: COPD type: COPD with acute exacerbation Qualified Code(s): J44.1 - Chronic obstructive pulmonary disease with (acute) exacerbation (5) Periorbital contusion of right eye Current Visit: Yes Status: Acute Assessment and plan: Due to a recent fall. CT of brain with no acute findings. No change in vision. Qualifiers: Encounter type: initial encounter Qualified Code(s): S05.11XA - Contusion of eyeball and orbital tissues, right eye, initial encounter (6) Debility Current Visit: Yes Status: Chronic Assessment and plan: likely due to chronic alcoholism. Patient is at high risk for falls and had a recent falll. Exploring long-term placement with the help of social service. (7) DVT prophylaxis Current Visit: Yes Status: Acute Assessment and plan: Continue SCDs, no anticoagulation with anemia (8) Hyponatremia Current Visit: Yes Status: Chronic Assessment and plan: Chronic. Most likely beer [place]. Serum osmolarity low. Continue to monitor BMP. Patient states this is a chronic problem for her and she had not taken her sodium tablets for a month or so. Continue sodium tablets and monitor labs, slow improvement (9) Pseudothrombocytopenia Current Visit: Yes Status: Acute (10) Headache Current Visit: Yes Status: Acute Assessment and plan: headache cocktail given CT of the head with nothing acute Qualifiers: Headache type: unspecified Headache chronicity pattern: unspecified pattern Intractability: not intractable Qualified Code(s): R51 - Headache (11) Anemia Current Visit: Yes Status: Chronic Assessment and plan: will monitor and check stool occult blood Qualifiers: Anemia type: unspecified type Qualified Code(s): D64.9 - Anemia, unspecified - Time Spent With Patient Total time spent is greater than 50% in coordination of care (as documented) at patient's floor/unit and/or counseling patient: - Subjective Interval history: Patient is sitting up in bed. She has some discomfort in her facial neely. She is complaining of a whole head headache. She also saying she cannot eat secondary to pain in her mouth and throat. She believes she has thrush. She has no questions regarding her procedure on Wednesday which is kyphoplasty. She is not triggering the see why scale at this time. She is tolerating her sodium tablets and has no other complaints at this time. She denies any signs of bleeding, no fever or chills sweats chest pain or shortness of breath. - Constitutional Vitals: Temp Pulse Resp BP Pulse Ox 99.0 F 101 18 178/82 97 01/01/18 11:45 01/01/18 11:45 01/01/18 11:45 01/01/18 11:45 01/01/18 11:45 General appearance: Present: cooperative, disheveled, A&O X 3, pleasant, answers questions appropriately - Head Head exam: Present: atraumatic, normocephalic Additional comments: Periorbital contusion of the right eye with no visual changes and no drainage from the eye. Healing neely around her nose and upper lip - Eye Eye exam: Present: periorbital tenderness, PERRL, conjuntiva pink, sclera anicteric. Absent: normal appearance Pupils: Present: PERRL - ENT Additional comments: Tongue is beefy red and swollen with no thrush patches noted - Neck Neck exam general surgery: Present: supple, trachea midline. Absent: lymphadenopathy - Respiratory Respiratory exam: Present: decreased breath sounds. Absent: accessory muscle use, rales, rhonchi, wheezes - Cardiovascular Cardiovascular exam: Present: RRR, +S1, +S2. Absent: diastolic murmur, gallop, rubs, systolic murmur - GI/Abdominal GI/Abdominal exam: Present: normal bowel sounds, soft, no peritoneal signs. Absent: distended, guarding, tenderness - Extremities Exam Extremities exam: Present: warm, radial pulses palpable and symmetrical. Absent : calf tenderness, cyanotic, pedal edema - Neurological Exam Neurological exam: Present: alert, CN II-XII intact, oriented X3, no focal deficits. Absent: pronater drift, facial droop, speech deficit - Skin Skin exam: Present: dry, normal color, warm Internal Medicine: Result - Labs CBC & Chem 7: 01/01/18 03:56 01/01/18 03:56 Labs: Short CBC 01/01/18 Range/Units 03:56 WBC 8.6 (4.3-11.1) K/mcL Hgb 8.4 L (11.5-15.4) g/dL Hct 24.8 L (35.3-44.9) % Plt Count TNP Neutrophils # 7.9 (1.6-8.9) K/mcL BMP 01/01/18 03:56 Sodium 126 L Potassium 4.1 Chloride 94 L Carbon Dioxide 21 L BUN 5 L Creatinine 0.45 L Glucose 227 H Calcium 8.3 L - ABG Interpretation ABG results: PT/INR, D-dimer PT 11.6 Seconds (9.4-12.1) 12/30/17 14:01 Consult Discharge Plan - Plan Referrals: Terrie Joseph TECHNICAL WRITING LEAD/MGR [Primary Care Provider] -
[2018-01-01] MEDS: *HR* HYDROcodone/Acet 5/325 mg TABLET PO PRN ×2 (15:14→21:41)
[2018-01-01] MEDS: Ibuprofen 200 MG TABLET PO PRN (18:14)
[2018-01-01] MEDS: *HR* LORazepam 2 MG/ML VIAL IVP PRN (22:21)
[2018-01-02] MEDS: Acetaminophen 325 MG TABLET PO PRN (00:18)
[2018-01-02] MEDS: Ipratropium/Albuterol Neb 3 ML IH SCH ×4 (04:26→22:27)
[2018-01-02] MEDS: MethylPREDNISolone 40 MG/ML VIAL IVP SCH ×4 (05:26→23:04)
[2018-01-02 06:35] LABS: Basophils % 0.1 %; Hematocrit 27.7 % (35.3-44.9); Immature Granulocytes % 1.6 % (0-4); Lymphocytes # 0.5 K/mcL (0.6-4.6); Lymphocytes % 3.5 %; Mean Corpuscular HGB Conc 32.5 g/dL (31.6-35.5); Mean Corpuscular Hemoglobin 34.1 pg (28.0-33.3); Mean Corpuscular Volume 104.9 fL (83.0-100.0); Monocytes # 0.4 K/mcL (0.0-1.3); Monocytes % 3.3 %; Nucleated Red Blood Cells 0.5 /100 WBC (0); Red Blood Count 2.64 M/mcL (3.82-4.97); Red Cell Distribution Width 15.9 % (11.5-14.5); Segmented Neutrophils % 91.5 %
[2018-01-02 06:36] LABS: Neutrophils # 12.1 K/mcL (1.6-8.9)
[2018-01-02 06:41] LABS: Mean Platelet Volume 9.3 fL (9.4-12.4)
[2018-01-02 07:02] LABS: Alanine Aminotransferase 61 Units/L (7-52); Albumin 3.8 g/dL (3.5-5.7); Albumin/Globulin Ratio 1.4 (1.1-2.2); Alkaline Phosphatase 612 Units/L (34-104); Aspartate Amino Transferase 57 Units/L (13-39); BUN/Creatinine Ratio 17 (6-26); Bilirubin,Direct 0.4 mg/dL (0.0-0.2); Bilirubin,Indirect 0.7 mg/dL (0.0-1.2); Bilirubin,Total 1.1 mg/dL (0.3-1.0); Blood Urea Nitrogen 8 mg/dL (6-20); Calcium 8.6 mg/dL (8.6-10.3); Carbon Dioxide 22 mEq/L (23-29); Chloride 87 mEq/L (98-107); Globulin 2.8 g/dL (2.4-3.5); Glucose 188 mg/dL (70-105); Osmolality,Calculated 253 (280-300); Potassium 4.1 mEq/L (3.5-5.1); Sodium 120 mEq/L (136-145); Total Protein 6.6 g/dL (6.4-8.9); eGFR For African Americans > 60 (> 60); eGFR For Non-African Americans > 60 (> 60)
[2018-01-02] MEDS ORDERED: Cosyntropin 250 MCG/2 ML VIAL IVP ONE (08:30)
[2018-01-02] MEDS: Azithromycin 250 MG TABLET PO SCH (09:15)
[2018-01-02] MEDS: *HR* HYDROcodone/Acet 5/325 mg TABLET PO PRN ×2 (09:15→15:38)
[2018-01-02] MEDS: Nystatin SUSP 5 ML UD.LIQ PO SCH ×4 (09:15→20:47)
[2018-01-02] MEDS: Vitamin B Complex/Vit C/Vit E 1 EACH TABLET PO SCH (09:15)
[2018-01-02] MEDS: Multivit/Ca/Min/Fe/FA 1 TAB TABLET PO SCH (09:15)
[2018-01-02] MEDS: Loratadine 10 MG TABLET PO SCH (09:15)
[2018-01-02] MEDS: Metoprolol XL (24 HR) Succ 25 MG TAB.ER.24H PO SCH (09:16)
[2018-01-02] MEDS: Nicotine 14 MG PATCH.TD24 TD SCH (09:16)
[2018-01-02] MEDS: (Ipratropium/Albuterol Sulfate [Combivent Respimat In IH SCH ×4 (09:18→20:47)
[2018-01-02] MEDS: Budesonide/Formoterol 160/4.5 MDI IH SCH ×2 (10:17→22:27)
--- NOTE | 2018-01-02 10:17 | Internal Med Progress Note ---
Date of Encounter: 01/02/18 Time of Encounter: 10:15 - Assessment and plan (1) Elevated LFTs Current Visit: Yes Status: Chronic Assessment and plan: Chronic Fatty liver. Alcoholism contributing factor. Monitor LFTs. Total bili decreased at 1.1. AST slightly elevated at 57 ALT 61 but alkaline phosphatase is decreased to 612 from 909. (2) Alcohol abuse Current Visit: Yes Status: Chronic Assessment and plan: Chronic. Alcohol cessation education. Continue Multivitamin with folic acid and thiamine. History of alcohol withdrawal in the past is denied per patient. She states she just left [facility] after 2 week stay on their burn unit [facility], Ativan not needed. (3) Compression fracture of body of thoracic vertebra Current Visit: Yes Status: Acute Assessment and plan: Recent fall. T12 acute on chronic compression fracture. No associated neurological deficit. Pain management by oral narcotic. Consulted spine surgeon who advised MRI without contrast lumbar and thoracic spine. MRI reported mild degenerative changes with chronic appearing compression fracture deformity of T12 resulting in near complete loss of vertebral body height anteriorly. Orthopedic surgeon discussed nonoperative treatment and kyphoplasty of T12. The patient has agreed for kyphoplasty on Wednesday PT/OT to follow once cleared by orthopedic surgery (4) COPD (chronic obstructive pulmonary disease) Current Visit: Yes Status: Acute Assessment and plan: bronchitis with flare of COPD, decrease Solu-Medrol, continue duonebs, oxygen supplementation, complete Z-Edwin Qualifiers: COPD type: COPD with acute exacerbation Qualified Code(s): J44.1 - Chronic obstructive pulmonary disease with (acute) exacerbation (5) Periorbital contusion of right eye Current Visit: Yes Status: Acute Assessment and plan: Due to a recent fall. CT of brain with no acute findings. No changes in vision. Qualifiers: Encounter type: initial encounter Qualified Code(s): S05.11XA - Contusion of eyeball and orbital tissues, right eye, initial encounter (6) Debility Current Visit: Yes Status: Chronic Assessment and plan: Is likely due to chronic alcoholism. Patient is at high risk for falls and had a recent falll. Exploring long-term placement with the help of social service. (7) DVT prophylaxis Current Visit: Yes Status: Acute Assessment and plan: Continue SCDs, no anticoagulation with anemia Patient is not very mobile (8) Hyponatremia Current Visit: Yes Status: Chronic Assessment and plan: Chronic. Most likely beer [place]. Serum osmolarity low. Continue to monitor BMP. Patient states this is a chronic problem for her and she had not taken her sodium tablets for a month or so. Sodium level dipped to 120 today in spite of taking sodium tablets and bump yesterday. Consult nephrology Increased sodium tablets 2 3 times a day placed on fluid restrictions and liberalize salt in her diet Check TSH Check cortisol with stimulation levels Check uric acid Check CT of the chest abdomen and pelvis without contrast Urology will see in the a.m. (9) Pseudothrombocytopenia Current Visit: Yes Status: Acute Assessment and plan: folate level XVII.9 and vitamin B12 level 259 Monitor lab work . (10) Headache Current Visit: Yes Status: Acute Assessment and plan: headache cocktail given with little change in reported headache Patient has some malingering and narcotic seeking behaviors CT of the head with nothing acute Qualifiers: Headache type: unspecified Headache chronicity pattern: unspecified pattern Intractability: not intractable Qualified Code(s): R51 - Headache (11) Anemia Current Visit: Yes Status: Chronic Assessment and plan: stool occult blood ordered Hemoglobin stable Qualifiers: Anemia type: unspecified type Qualified Code(s): D64.9 - Anemia, unspecified - Time Spent With Patient Total time spent is greater than 50% in coordination of care (as documented) at patient's floor/unit and/or counseling patient: - Subjective Interval history: Patient is sitting up in bed. She has some discomfort in her facial neely. She is complaining of a whole head headache which she stated did not respond to the headache cocktail that was administered yesterday. She dates her mouth and throat pain is no better but she is tolerating a diet today. She is not triggering the see why scale at this time. She is tolerating her sodium tablets which were increased to 3 times a day today for persistent hyponatremia. She denies any signs of bleeding, no fever or chills sweats chest pain or shortness of breath. - Constitutional Vitals: Temp Pulse Resp BP Pulse Ox 99.4 F 101 14 176/94 99 01/02/18 07:26 01/02/18 07:26 01/02/18 07:26 01/02/18 07:26 01/02/18 07:26 General appearance: Present: cooperative, disheveled, A&O X 3, answers questions appropriately - Head Head exam: Present: atraumatic, normocephalic - Eye Eye exam: Present: PERRL, conjuntiva pink, sclera anicteric Pupils: Present: PERRL - Neck Neck exam general surgery: Present: supple, trachea midline. Absent: lymphadenopathy - Respiratory Respiratory exam: Present: decreased breath sounds. Absent: accessory muscle use, rales, rhonchi, wheezes Additional comments: Slight coarse breath sounds but no active wheezing - Cardiovascular Cardiovascular exam: Present: RRR, +S1, +S2. Absent: diastolic murmur, gallop, rubs, systolic murmur - GI/Abdominal GI/Abdominal exam: Present: normal bowel sounds, soft, no peritoneal signs. Absent: distended, tenderness - Extremities Exam Extremities exam: Present: warm, radial pulses palpable and symmetrical. Absent : calf tenderness, cyanotic, pedal edema - Neurological Exam Neurological exam: Present: alert, CN II-XII intact, oriented X3, no focal deficits. Absent: pronater drift, facial droop, speech deficit - Skin Skin exam: Present: dry, intact, warm Additional comments: Bruising over right eye and facial neely noted around her nose and mouth Internal Medicine: Result - Labs CBC & Chem 7: 01/02/18 05:57 01/02/18 05:57 Labs: Short CBC 01/02/18 Range/Units 05:57 WBC 13.2 H D (4.3-11.1) K/mcL Hgb 9.0 L (11.5-15.4) g/dL Hct 27.7 L (35.3-44.9) % Plt Count PUBLISHER ASSISTANT Neutrophils # 12.1 H (1.6-8.9) K/mcL BMP 01/02/18 05:57 Sodium 120 L* Potassium 4.1 Chloride 87 L Carbon Dioxide 22 L BUN 8 Creatinine 0.47 L Glucose 188 H Calcium 8.6 Liver Function 01/02/18 Range/Units 05:57 Total Bilirubin 1.1 H (0.3-1.0) mg/dL Direct Bilirubin 0.4 H (0.0-0.2) mg/dL AST 57 H (13-39) Units/L ALT 61 H (7-52) Units/L Alkaline Phosphatase 612 H (34-104) Units/L Albumin 3.8 (3.5-5.7) g/dL - ABG Interpretation ABG results: PT/INR, D-dimer PT 11.6 Seconds (9.4-12.1) 12/30/17 14:01 - Impressions Impressions Abdomen/Pelvis CT 01/02/18 07:53 IMPRESSION: 1. Patient motion and lack of intravenous contrast administration partially limit evaluation. 2. Minimal bronchial wall thickening with central airway secretions, suggesting bronchitis. 3. Questionable persistent though decreased patchy infectious bronchiolitis superimposed upon chronic pulmonary changes likely related to prior infection. 4. Fluid distention of multiple small bowel loops potentially related to mild enteritis. 5. Diffuse urinary bladder wall thickening potentially due to incomplete distention and/or cystitis. 6. Osteoporosis. 7. Additional incidental findings as above. D/ / Aneesh Brooks MD / Aneesh Brooks MD Interpreting Provider: Aneesh Brooks MD Chest CT 01/02/18 07:53 IMPRESSION: 1. Patient motion and lack of intravenous contrast administration partially limit evaluation. 2. Minimal bronchial wall thickening with central airway secretions, suggesting bronchitis. 3. Questionable persistent though decreased patchy infectious bronchiolitis superimposed upon chronic pulmonary changes likely related to prior infection. 4. Fluid distention of multiple small bowel loops potentially related to mild enteritis. 5. Diffuse urinary bladder wall thickening potentially due to incomplete distention and/or cystitis. 6. Osteoporosis. 7. Additional incidental findings as above. D/ / Aneesh Brooks MD / Aneesh Brooks MD Interpreting Provider: Aneesh Brooks MD Consult Discharge Plan - Plan Referrals: Terrie Joseph, TECHNICAL COMMUNICATION TEACHER [Primary Care Provider] -
[2018-01-02] MEDS ORDERED: *HR* LORazepam 2 MG/ML VIAL IVP PRN ×3 (10:28)
[2018-01-02] MEDS: *HR* LORazepam 2 MG/ML VIAL IVP PRN (23:05)
[2018-01-03] MEDS: Ipratropium/Albuterol Neb 3 ML IH SCH ×4 (04:01→22:06)
[2018-01-03 05:17] LABS: Basophils % 0.1 %; Hemoglobin 8.4 g/dL (11.5-15.4); Immature Granulocytes % 2.9 % (0-4); Lymphocytes # 0.4 K/mcL (0.6-4.6); Lymphocytes % 3.7 %; Mean Corpuscular HGB Conc 32.3 g/dL (31.6-35.5); Mean Corpuscular Hemoglobin 34.1 pg (28.0-33.3); Mean Corpuscular Volume 105.7 fL (83.0-100.0); Monocytes # 0.5 K/mcL (0.0-1.3); Monocytes % 4.4 %; Neutrophils # 10.1 K/mcL (1.6-8.9); Nucleated Red Blood Cells 0.4 /100 WBC (0); Red Blood Count 2.46 M/mcL (3.82-4.97); Red Cell Distribution Width 15.9 % (11.5-14.5); Segmented Neutrophils % 88.9 %
[2018-01-03] MEDS: MethylPREDNISolone 40 MG/ML VIAL IVP SCH ×2 (05:23→11:31)
[2018-01-03 05:47] LABS: Thyroid Stimulating Hormone 0.524 mcIU/mL (0.340-5.600)
[2018-01-03 05:58] LABS: BUN/Creatinine Ratio 22 (6-26); Blood Urea Nitrogen 8 mg/dL (6-20); Calcium 8.5 mg/dL (8.6-10.3); Carbon Dioxide 24 mEq/L (23-29); Chloride 92 mEq/L (98-107); Glucose 152 mg/dL (70-105); Osmolality,Calculated 269 (280-300); Potassium 3.9 mEq/L (3.5-5.1); Sodium 129 mEq/L (136-145); Uric Acid 2.8 mg/dL (2.3-7.6); eGFR For African Americans > 60 (> 60); eGFR For Non-African Americans > 60 (> 60)
[2018-01-03 06:13] LABS: Mean Platelet Volume 9.1 fL (9.4-12.4)
[2018-01-03] MEDS: Vitamin B Complex/Vit C/Vit E 1 EACH TABLET PO SCH (08:53)
[2018-01-03] MEDS: Multivit/Ca/Min/Fe/FA 1 TAB TABLET PO SCH (08:53)
[2018-01-03] MEDS: Loratadine 10 MG TABLET PO SCH (08:53)
[2018-01-03] MEDS: Nicotine 14 MG PATCH.TD24 TD SCH (08:53)
[2018-01-03] MEDS: Metoprolol XL (24 HR) Succ 25 MG TAB.ER.24H PO SCH (08:53)
[2018-01-03] MEDS: Nystatin SUSP 5 ML UD.LIQ PO SCH ×4 (08:53→20:06)
[2018-01-03] MEDS: Azithromycin 250 MG TABLET PO SCH (08:53)
[2018-01-03] MEDS: (Ipratropium/Albuterol Sulfate [Combivent Respimat In IH SCH ×4 (09:20→20:09)
--- NOTE | 2018-01-03 09:28 | Nephrology Consult Note ---
Date of Encounter: 01/03/18 Time of Encounter: 09:26 Assessment and Plan (1) Hyponatremia Current Visit: Yes Status: Chronic Patient has a critical picture of chronic euvolemic hyponatremia in the setting of alcohol abuse and likely decreased oral intake resulting in low solute consumption contributing to her hyponatremia. Thyroid function is normal. Cortisol levels are pending but the patient is on methylprednisolone so those levels will not be accurate. She should have a CTh stimulation test done as an outpatient when she is not on supplemental steroids. Treatment currently should include free water restriction, discontinuing alcohol consumption, continue with the sodium chloride tablets, and a high solute diet. We will follow the patient while she is here in the hospital. I am also going to check a urine osmolality. (2) Alcohol abuse Current Visit: Yes Status: Acute History of Present Illness - History of Present Illness This is a 57-year-old female who presented to emergency room with complaints of back pain after sustaining several falls at home over the past month or so. She was medically for further evaluation and also because of hyponatremia. Patient does have a history of chronic hyponatremia in the setting of chronic alcohol abuse for at least the past 9 years. Serum sodium initially was 120. Patient has been started on some sodium tablets here in the hospital and her sodium was up to 129 today. Other pertinent laboratory studies include a very low urea nitrogen and serum creatinine. TSH is normal. Cortisol studies are pending although the patient is on methylprednisolone so those studies will not be reliable. Patient denies any peripheral edema. She does not take diuretics at home. She does have occasional nausea and vomiting which she blames on the alcohol. She has occasional diarrhea but this is not a regular occurrence. She does have chronic shortness of breath related to what appears to be COPD in the setting of continued tobacco consumption. Patient reports that she drinks at least 6 beers per day for the past 9 years since her . She drinks iced tea and water during the day as well. She reports about 5-6 glasses of iced tea and several bottles of water. Past Med Surg Social Fam HX - Past Medical History Medical history: COPD, hypertension, liver disease, TIA Psychiatric history: anxiety, depression - Past Surgical History Surgical History: other - Social History Smoking Status: Current every day smoker Smokeless Tobacco Status: No Alcohol use: heavy (6-pack/night ) Drug use: none - Family History Brother Adopted: No Living Status: Hx Family Cancer: Yes (Lung) Medications and Allergies Ipratropium/Albuterol Sulfate [Combivent Respimat Inhal [place]] 1 puff IH QID [History] Guaifenesin [Mucinex] 600 mg PO Q12H 09/13/17 [History] Oxygen 2 l NS AD 09/13/17 [History] Omeprazole [PriLOSEC] 40 mg PO DAILY@0630 capsule. 11/27/17 [Rx] Acetaminophen [Tylenol] 325 mg PO Q4HR PRN 12/30/17 [History] Budesonide/Formoterol 160/4.5 [Symbicort 160/4.5] 1 puff IH BID 12/30/17 [ History] Cetirizine HCl [All Day Allergy] 10 mg PO DAILY 12/30/17 [History] Escitalopram [Lexapro] 10 mg PO DAILY 12/30/17 [History] Ibuprofen [Advil] 200 mg PO DAILY PRN 12/30/17 [History] Loperamide [Imodium] 2 mg PO Q4HR 12/30/17 [History] Meloxicam [Meloxicam] 15 mg PO DAILY 12/30/17 [History] Metoprolol XL (24 HR) Succ [Toprol Xl] 25 mg PO DAILY 12/30/17 [History] Mv,Ca,Iron,Mn/FA/Chol/Boo/PABA [Body, Hair, Skin & Nails Cap] 1 cap PO DAILY [History] Vitamin B Complex/Vit C/Vit E [Stresstab] 1 cap PO DAILY 12/30/17 [History] hydrOXYzine HCl [Hydroxyzine HCl] 25 mg PO TID 12/30/17 [History] 3 Allergy/AdvReac Type Severity Reaction Status Date / Time No Known Allergies Allergy Verified 12/30/17 16:19 Review of Systems Constitutional: as per HPI, weakness Eyes: bilateral: blurred vision (patient denies), diplopia (patient denies) Nose, mouth and throat: no dizziness, no headache(s) Cardiovascular: diaphoresis, dyspnea, no chest pain, no palpitations Respiratory: cough, dyspnea, dyspnea on exertion Gastrointestinal: nausea Musculoskeletal: back pain, muscle weakness, no numbness Integumentary: no hirsutism, no striae Neurological: abnormal gait, weakness Psychiatric: no depression, no difficulty concentrating Endocrine: as per HPI Hematologic/Lymphatic: no easy bruising, no lymphadenopathy Exam - Vital Signs Vital signs: Initial Vital Signs Temp Pulse Resp BP Pulse Ox 98.2 F 114 22 117/85 100 12/30/17 13:39 12/30/17 13:39 12/30/17 13:39 12/30/17 13:39 12/30/17 13:39 Vital Signs - Last 8 Hours Pulse Ox 01/03/18 09:00 100 Intake and Output 01/02/18 01/03/18 01/03/18 23:59 07:59 15:59 Intake Total 120 / 120 Balance 120 / 120 Intake: Oral 120 / 120 - General Appearance Exam: Patient is alert and oriented. She appears older than her stated age. She has multiple bruises on her face from a previous fall. Blood pressures 171/91. Lungs breath sounds with bilateral expiratory wheezing. Heart regular rate and rhythm with a 2/6 Dr. ejection murmur. Abdomen soft. Bowel sounds are present. No masses organomegaly or tenderness are noted. There is no peripheral edema. She does have what appears to be some muscle wasting of the lower extremities. Results - Lab Results 01/03/18 04:10 01/03/18 04:10 Most recent lab results Calcium 8.5 mg/dL (8.6-10.3) L 01/03/18 04:10 Magnesium 1.6 mg/dL (1.6-2.6) 12/30/17 14:01 Consult Discharge Plan - Plan Referrals: Terrie Joseph, DOROTHEA [Primary Care Provider] -
[2018-01-03] MEDS: Budesonide/Formoterol 160/4.5 MDI IH SCH ×2 (10:32→22:06)
[2018-01-03] MEDS: *HR* LORazepam 2 MG/ML VIAL IVP PRN ×2 (13:20→23:28)
--- NOTE | 2018-01-03 13:23 | Spine Progress Note ---
Date of Encounter: 01/03/18 Time of Encounter: 13:22 Subjective Principal diagnosis: back pain, compression fracture Interval history: 57 yo women s/p fall now with significant back pain. AFVSS. She has tenderness over the thoracolumbar region but is neurovascularly intact. MRI reveals acute T12 compression Fracture with significant 70% loss of height. Impression: 1) Vertebral compression fractyre T12 2) Osteopenia Plan: Had a long discussion with the hospitalist service who feel that she is not medically optimized and not a surgical candidate at this time. We will reevaluate consideration for kyphoplasty after the patient is medically cleared/ optimized. She will continue with analgesics in the interim. Objective Vital signs: Vital Signs Temp Pulse Resp BP Pulse Ox 01/03/18 13:17 165/82 01/03/18 10:41 96.4 F L 93 15 198/94 100 01/03/18 10:31 18 99 01/03/18 09:00 100 Intake and Output 01/02/18 01/03/18 01/03/18 23:59 07:59 15:59 Intake Total 120 / 120 Output Total 100 / 100 Balance 20 / 20 Intake: Oral 120 / 120 Output: Urine 100 / 100 Other: Stool Size Small # Bowel Movements 1 - Labs CBC & BMP: 01/03/18 04:10 01/03/18 04:10 Labs: Abnormal lab results WBC 11.4 K/mcL (4.3-11.1) H 01/03/18 04:10 RBC 2.46 M/mcL (3.82-4.97) L 01/03/18 04:10 Hgb 8.4 g/dL (11.5-15.4) L 01/03/18 04:10 Hct 26.0 % (35.3-44.9) L 01/03/18 04:10 MCV 105.7 fL (83.0-100.0) H 01/03/18 04:10 MCH 34.1 pg (28.0-33.3) H 01/03/18 04:10 RDW 15.9 % (11.5-14.5) H 01/03/18 04:10 MPV 9.1 fL (9.4-12.4) L 01/03/18 05:59 Neutrophils # 10.1 K/mcL (1.6-8.9) H 01/03/18 04:10 Lymphocytes # 0.4 K/mcL (0.6-4.6) L 01/03/18 04:10 Nucleated RBCs/100 WBC 0.4 /100 WBC (0) H 01/03/18 04:10 Sodium 129 mEq/L (136-145) L D 01/03/18 04:10 Chloride 92 mEq/L (98-107) L 01/03/18 04:10 Creatinine 0.37 mg/dL (0.60-1.20) L 01/03/18 04:10 Glucose 152 mg/dL (70-105) H 01/03/18 04:10 POC Glucose 159 mg/dL (70-99) H 12/30/17 14:00 Calculated Osmolality 269 (280-300) L 01/03/18 04:10 Calcium 8.5 mg/dL (8.6-10.3) L 01/03/18 04:10 Total Bilirubin 1.1 mg/dL (0.3-1.0) H 01/02/18 05:57 Direct Bilirubin 0.4 mg/dL (0.0-0.2) H 01/02/18 05:57 AST 57 Units/L (13-39) H 01/02/18 05:57 ALT 61 Units/L (7-52) H 01/02/18 05:57 Alkaline Phosphatase 612 Units/L (34-104) H 01/02/18 05:57 Folate 17.9 ng/mL (3.0-16.0) H 01/01/18 03:56 Free T4 0.55 ng/dl (0.70-2.00) L 01/03/18 04:10 Consult Discharge Plan - Plan Referrals: Terrie Joseph, ESCROW CLERK [Primary Care Provider] -
--- NOTE | 2018-01-03 17:26 | Internal Med Progress Note ---
Date of Encounter: 01/03/18 Time of Encounter: 17:26 - Assessment and plan (1) Elevated LFTs Current Visit: Yes Status: Chronic Assessment and plan: Chronic Fatty liver. Alcoholism contributing factor. continue to monitor LFTs. Total bili decreased at 1.1. AST slightly elevated at 57 ALT 61 but alkaline phosphatase is decreased to 612 from 909. (2) Alcohol abuse Current Visit: Yes Status: Chronic Assessment and plan: Chronic. Alcohol cessation education. Continue Multivitamin with folic acid and thiamine. History of alcohol withdrawal in the past is denied per patient. She states she just left [place] [facility] after 2 week stay on their burn unit CIWA triggering 10 Ativan not needed. (3) Compression fracture of body of thoracic vertebra Current Visit: Yes Status: Acute Assessment and plan: Recent fall. T12 acute on chronic compression fracture. No associated neurological deficit. Pain management by oral narcotic. Consulted spine surgeon who advised MRI without contrast lumbar and thoracic spine. MRI reported mild degenerative changes with chronic appearing compression fracture deformity of T12 resulting in near complete loss of vertebral body height anteriorly. Orthopedic surgeon discussed nonoperative treatment and kyphoplasty of T12. The patient has agreed for kyphoplasty on Wednesday but she is not medically cleared at this point PT/OT may see as she is cleared by orthopedic surgery he would like to perform kyphoplasty on this admit but her lab work is variable and she cannot lie flat at this time (4) COPD (chronic obstructive pulmonary disease) Current Visit: Yes Status: Acute Assessment and plan: bronchitis with flare of COPD, decrease Solu-Medrol to every 12 hours, continue duonebs, oxygen supplementation, complete course of azithromycin Qualifiers: COPD type: COPD with acute exacerbation Qualified Code(s): J44.1 - Chronic obstructive pulmonary disease with (acute) exacerbation (5) Periorbital contusion of right eye Current Visit: Yes Status: Acute Assessment and plan: Due to recent fall. CT of brain with no acute findings. No changes in vision. Qualifiers: Encounter type: initial encounter Qualified Code(s): S05.11XA - Contusion of eyeball and orbital tissues, right eye, initial encounter (6) Debility Current Visit: Yes Status: Chronic Assessment and plan: Likely due to chronic alcoholism. Patient is at high risk for falls and had a recent falll. Exploring long-term placement with the help of social service. (7) DVT prophylaxis Current Visit: Yes Status: Acute Assessment and plan: Continue SCDs, no anticoagulation with anemia (8) Hyponatremia Current Visit: Yes Status: Chronic Assessment and plan: Chronic. Most likely contributed to by beer samanthaamania. Serum osmolarity low. Continue to monitor BMP. Patient states this is a chronic problem for her and she had not taken her sodium tablets for a month or so. Sodium level dipped to 120 in spite of taking sodium tablets. nephrology following Increased sodium tablets 2, 3 times a day, placed on fluid restrictions and liberalize salt in her diet Check TSH Check cortisol with stimulation levels Check uric acid Check CT of the chest abdomen and pelvis without contrast Urology made following recommendations: Patient has a critical picture of chronic euvolemic hyponatremia in the setting of alcohol abuse and likely decreased oral intake resulting in low solute consumption contributing to her hyponatremia. Thyroid function is normal. Cortisol levels are pending but the patient is on methylprednisolone so those levels will not be accurate. She should have a CTh stimulation test done as an outpatient when she is not on supplemental steroids. Treatment currently should include free water restriction, discontinuing alcohol consumption, continue with the sodium chloride tablets, and a high solute diet. We will follow the patient while she is here in the hospital. I am also going to check a urine osmolality. (9) Pseudothrombocytopenia Current Visit: Yes Status: Acute Assessment and plan: folate level 17.9 and vitamin B12 level 259 Monitor lab work . (10) Headache Current Visit: Yes Status: Acute Assessment and plan: headache cocktail given with little change in reported headache Patient has some malingering and narcotic seeking behaviors CT of the head reported nothing acute Qualifiers: Headache type: unspecified Headache chronicity pattern: unspecified pattern Intractability: not intractable Qualified Code(s): R51 - Headache (11) Anemia Current Visit: Yes Status: Chronic Assessment and plan: stool occult blood ordered Hemoglobin level fluctuates between 9 and 8.4 with no signs of bleeding Qualifiers: Anemia type: unspecified type Qualified Code(s): D64.9 - Anemia, unspecified (12) Anxiety Current Visit: Yes Status: Acute Assessment and plan: Patient receiving Ativan for anxiety. If she continues to escalate her behavior would consider a psychiatry consult - Time Spent With Patient Total time spent is greater than 50% in coordination of care (as documented) at patient's floor/unit and/or counseling patient: - Subjective Interval history: Patient is sitting up in bed. She has some discomfort in her facial neely. She is complaining of increasing anxiety and "feels like she is going to go nuts ". Splaying that she was not having her kyphoplasty today because she is not medically optimized. She questions that she will be able to lay flat without long to have the procedure done. She remains on oxygen to maintain her saturations and denies shortness of breath at this time. She denies any symptoms of withdrawal. - Constitutional Vitals: Temp Pulse Resp BP Pulse Ox 98.9 F 93 18 159/83 100 01/03/18 15:01 01/03/18 10:41 01/03/18 16:01 01/03/18 15:01 01/03/18 16:01 General appearance: Present: cooperative, disheveled, A&O X 3, answers questions appropriately Internal Medicine: Result - Labs CBC & Chem 7: 01/03/18 04:10 01/03/18 04:10 - ABG Interpretation ABG results: PT/INR, D-dimer PT 11.6 Seconds (9.4-12.1) 12/30/17 14:01 Consult Discharge Plan - Plan Referrals: Terrie Joseph ENGINEERING TEST SPECIALIST [Primary Care Provider] -
[2018-01-03] MEDS: *HR* HYDROcodone/Acet 5/325 mg TABLET PO PRN (20:07)
[2018-01-03] MEDS: Ibuprofen 200 MG TABLET PO PRN (22:33)
[2018-01-04] MEDS: *HR* HYDROcodone/Acet 5/325 mg TABLET PO PRN ×3 (03:42→20:59)
[2018-01-04] MEDS: *HR* LORazepam 2 MG/ML VIAL IVP PRN ×3 (03:57→22:47)
[2018-01-04] MEDS: Ipratropium/Albuterol Neb 3 ML IH SCH ×4 (04:36→23:26)
[2018-01-04 05:00] LABS: Eosinophils % 0.1 %
[2018-01-04 05:01] LABS: Red Cell Distribution Width 15.8 % (11.5-14.5)
[2018-01-04 05:25] LABS: Alanine Aminotransferase 66 Units/L (7-52); Albumin 3.1 g/dL (3.5-5.7); Albumin/Globulin Ratio 1.4 (1.1-2.2); Alkaline Phosphatase 378 Units/L (34-104); Aspartate Amino Transferase 65 Units/L (13-39); BUN/Creatinine Ratio 25 (6-26); Bilirubin,Total 0.7 mg/dL (0.3-1.0); Blood Urea Nitrogen 13 mg/dL (6-20); Calcium 8.2 mg/dL (8.6-10.3); Carbon Dioxide 27 mEq/L (23-29); Chloride 95 mEq/L (98-107); Globulin 2.2 g/dL (2.4-3.5); Glucose 128 mg/dL (70-105); Osmolality,Calculated 268 (280-300); Potassium 3.7 mEq/L (3.5-5.1); Sodium 128 mEq/L (136-145); Total Protein 5.3 g/dL (6.4-8.9); eGFR For African Americans > 60 (> 60); eGFR For Non-African Americans > 60 (> 60)
[2018-01-04 05:31] LABS: Basophils % 0.3 %; Hematocrit 25.2 % (35.3-44.9); Hemoglobin 8.3 g/dL (11.5-15.4); Immature Granulocytes % 5.8 % (0-4); Lymphocytes # 1.6 K/mcL (0.6-4.6); Lymphocytes % 11.2 %; Mean Corpuscular HGB Conc 32.9 g/dL (31.6-35.5); Mean Corpuscular Hemoglobin 34.9 pg (28.0-33.3); Mean Corpuscular Volume 105.9 fL (83.0-100.0); Mean Platelet Volume 12.3 fL (9.4-12.4); Monocytes # 1.3 K/mcL (0.0-1.3); Monocytes % 8.8 %; Neutrophils # 10.5 K/mcL (1.6-8.9); Red Blood Count 2.38 M/mcL (3.82-4.97); Segmented Neutrophils % 73.8 %
[2018-01-04 05:37] LABS: Mean Platelet Volume 9.1 fL (9.4-12.4)
[2018-01-04 05:41] LABS: Macrocytosis Present (Not Present); Reactive Lymphocytes Present (Not Present)
[2018-01-04 06:19] LABS: BUN/Creatinine Ratio 26 (6-26); Blood Urea Nitrogen 13 mg/dL (6-20); Carbon Dioxide 27 mEq/L (23-29); Chloride 95 mEq/L (98-107); Glucose 186 mg/dL (70-105); Osmolality,Calculated 271 (280-300); Potassium 3.5 mEq/L (3.5-5.1); Sodium 128 mEq/L (136-145); eGFR For African Americans > 60 (> 60); eGFR For Non-African Americans > 60 (> 60)
[2018-01-04] MEDS: Metoprolol XL (24 HR) Succ 25 MG TAB.ER.24H PO SCH (08:31)
[2018-01-04] MEDS: Nystatin SUSP 5 ML UD.LIQ PO SCH ×4 (08:31→20:58)
[2018-01-04] MEDS: Loratadine 10 MG TABLET PO SCH (08:31)
[2018-01-04] MEDS: Vitamin B Complex/Vit C/Vit E 1 EACH TABLET PO SCH (08:31)
[2018-01-04] MEDS: Multivit/Ca/Min/Fe/FA 1 TAB TABLET PO SCH (08:31)
[2018-01-04] MEDS: Nicotine 14 MG PATCH.TD24 TD SCH (08:32)
[2018-01-04] MEDS: (Ipratropium/Albuterol Sulfate [Combivent Respimat In IH SCH ×4 (08:32→20:58)
[2018-01-04] MEDS: Budesonide/Formoterol 160/4.5 MDI IH SCH ×2 (10:33→23:26)
--- NOTE | 2018-01-04 11:25 | Internal Med Progress Note ---
Date of Encounter: 01/04/18 Time of Encounter: 11:23 - Assessment and plan (1) Compression fracture of body of thoracic vertebra Current Visit: Yes Status: Acute Assessment and plan: Recent fall. T12 acute on chronic compression fracture. No associated neurological deficit. Pain management by oral narcotic. Consulted spine surgeon who advised MRI without contrast lumbar and thoracic spine. MRI reported mild degenerative changes with chronic appearing compression fracture deformity of T12 resulting in near complete loss of vertebral body height anteriorly. Orthopedic surgeon discussed nonoperative treatment and kyphoplasty of T12. The patient has agreed for kyphoplasty on Wednesday but she is not medically cleared at this point PT/OT may see as she is cleared by orthopedic surgery he would like to perform kyphoplasty on this admit but her lab work is variable and she cannot lie flat at this time (2) Hyponatremia Current Visit: Yes Status: Chronic Assessment and plan: Chronic most likely secondary to beer plan sweetie. Serum osmolality low we will continue to monitor Continuous salt tabs increase tablets 3 times a day continue with fluid restriction liberalized salt diet Nephrology has been consulted CT of abdomen/chest completed: Minimal bronchial wall thickening with central airway secretions, suggesting bronchitis. 3. Questionable persistent though decreased patchy infectious bronchiolitis superimposed upon chronic pulmonary changes likely related to prior infection. 4. Fluid distention of multiple small bowel loops potentially related to mild enteritis. 5. Diffuse urinary bladder wall thickening potentially due to incomplete distention and/or cystitis. 6. Osteoporosis. 7. Additional incidental findings as above. Encouraged patient to stop drinking however she voiced that she is not interested at this time (3) Elevated LFTs Current Visit: Yes Status: Chronic Assessment and plan: Chronic Fatty liver. Alcoholism contributing factor. continue to monitor LFTs. (4) Alcohol abuse Current Visit: Yes Status: Chronic Assessment and plan: Chronic. Alcohol cessation education. Patient admits that she does not want to stop drinking Continue Multivitamin with folic acid and thiamine. History of alcohol withdrawal in the past is denied per patient. She states she just left [place] [facility] after 2 week stay on their burn unit CIWA triggering 10 Ativan not needed. (5) COPD (chronic obstructive pulmonary disease) Current Visit: Yes Status: Acute Assessment and plan: bronchitis with flare of COPD, decrease Solu-Medrol to every 12 hours, continue duonebs, oxygen supplementation, complete course of azithromycin Qualifiers: COPD type: COPD with acute exacerbation Qualified Code(s): J44.1 - Chronic obstructive pulmonary disease with (acute) exacerbation (6) Periorbital contusion of right eye Current Visit: Yes Status: Acute Assessment and plan: Due to recent fall. CT of brain with no acute findings. No changes in vision. Qualifiers: Encounter type: initial encounter Qualified Code(s): S05.11XA - Contusion of eyeball and orbital tissues, right eye, initial encounter (7) Debility Current Visit: Yes Status: Chronic Assessment and plan: Likely due to chronic alcoholism. Patient is at high risk for falls and had a recent falll. Exploring long-term placement with the help of social service. (8) Anemia Current Visit: Yes Status: Chronic Assessment and plan: stool occult blood ordered Hemoglobin level fluctuates between 9 and 8.4 with no signs of bleeding Qualifiers: Anemia type: unspecified type Qualified Code(s): D64.9 - Anemia, unspecified (9) Pseudothrombocytopenia Current Visit: Yes Status: Acute Assessment and plan: Folate 17.9 and vitamin B-12 level 259- we will continue to monitor (10) Headache Current Visit: Yes Status: Resolved Assessment and plan: Resolved-No headache voiced at this time Qualifiers: Headache type: unspecified Headache chronicity pattern: unspecified pattern Intractability: not intractable Qualified Code(s): R51 - Headache (11) Anxiety Current Visit: Yes Status: Acute Assessment and plan: Patient receiving Ativan for anxiety. She is calm at this time-May need to consult psychiatry as needed (12) DVT prophylaxis Current Visit: Yes Status: Acute Assessment and plan: Continue SCDs, no anticoagulation with anemia - Time Spent With Patient Total time spent is greater than 50% in coordination of care (as documented) at patient's floor/unit and/or counseling patient: - Subjective Interval history: Patient is new to me I did review medical records. Presently the patient complains of back pain. No s/sx of withdrawal at this time We did discuss smoking cessation which patient was not interested in quitting at tihis time. Also encouraged patient to stop drinking which she states she is not interested - Constitutional Vitals: Temp Pulse Resp BP Pulse Ox 98.8 F 101 16 161/85 98 01/04/18 07:48 01/04/18 07:48 01/04/18 10:33 01/04/18 07:48 01/04/18 10:33 General appearance: Present: cooperative, disheveled, A&O X 3, answers questions appropriately - Head Head exam: Present: normocephalic Additional comments: facial neely - Eye Eye exam: Present: PERRL, conjuntiva pink, sclera anicteric Pupils: Present: PERRL - Neck Neck exam general surgery: Present: supple, trachea midline. Absent: lymphadenopathy - Respiratory Respiratory exam: Present: wheezes. Absent: accessory muscle use, rales, rhonchi - Cardiovascular Cardiovascular exam: Present: RRR, +S1, +S2. Absent: diastolic murmur, gallop, rubs, systolic murmur - GI/Abdominal GI/Abdominal exam: Present: normal bowel sounds, soft, no peritoneal signs. Absent: distended, tenderness - Extremities Exam Extremities exam: Present: warm, radial pulses palpable and symmetrical. Absent : calf tenderness, cyanotic, pedal edema - Neurological Exam Neurological exam: Present: CN II-XII intact, oriented X3, no focal deficits. Absent: pronater drift, facial droop, speech deficit - Skin Skin exam: Present: dry, intact Internal Medicine: Result - Labs CBC & Chem 7: 01/04/18 03:35 01/04/18 05:56 Labs: Short CBC 01/04/18 Range/Units 03:35 WBC 14.2 H (4.3-11.1) K/mcL Hgb 8.3 L (11.5-15.4) g/dL Hct 25.2 L (35.3-44.9) % Plt Count TNP Neutrophils # 10.5 H (1.6-8.9) K/mcL BMP 01/04/18 01/04/18 03:35 05:56 Sodium 128 L 128 L Potassium 3.7 3.5 Chloride 95 L 95 L Carbon Dioxide 27 27 BUN 13 13 Creatinine 0.52 L 0.50 L Glucose 128 H 186 H Calcium 8.2 L 8.0 L Liver Function 01/04/18 Range/Units 03:35 Total Bilirubin 0.7 (0.3-1.0) mg/dL AST 65 H (13-39) Units/L ALT 66 H (7-52) Units/L Alkaline Phosphatase 378 H (34-104) Units/L Albumin 3.1 L (3.5-5.7) g/dL - ABG Interpretation ABG results: PT/INR, D-dimer PT 11.6 Seconds (9.4-12.1) 12/30/17 14:01 Consult Discharge Plan - Plan Referrals: Terrie Joseph, GLOVE CLEANER [Primary Care Provider] -
[2018-01-04] MEDS: Acetaminophen 325 MG TABLET PO PRN (15:44)
[2018-01-05] MEDS: *HR* HYDROcodone/Acet 5/325 mg TABLET PO PRN ×4 (03:40→23:17)
[2018-01-05] MEDS: Ipratropium/Albuterol Neb 3 ML IH SCH ×4 (04:21→23:00)
[2018-01-05 06:31] LABS: Basophils # 0.1 K/mcL (0.0-0.2); Basophils % 0.5 %; Eosinophils % 0.3 %; Hematocrit 26.3 % (35.3-44.9); Hemoglobin 8.4 g/dL (11.5-15.4); Immature Granulocytes % 9.2 % (0-4); Lymphocytes % 15.1 %; Mean Corpuscular HGB Conc 31.9 g/dL (31.6-35.5); Mean Corpuscular Hemoglobin 33.9 pg (28.0-33.3); Mean Platelet Volume 11.4 fL (9.4-12.4); Monocytes % 7.3 %; Nucleated Red Blood Cells 0.6 /100 WBC (0); Red Blood Count 2.48 M/mcL (3.82-4.97); Red Cell Distribution Width 15.9 % (11.5-14.5); Segmented Neutrophils % 67.6 %
[2018-01-05 06:44] LABS: BUN/Creatinine Ratio 25 (6-26); Blood Urea Nitrogen 11 mg/dL (6-20); Carbon Dioxide 26 mEq/L (23-29); Chloride 98 mEq/L (98-107); Glucose 160 mg/dL (70-105); Osmolality,Calculated 275 (280-300); Potassium 3.4 mEq/L (3.5-5.1); Sodium 131 mEq/L (136-145); eGFR For African Americans > 60 (> 60); eGFR For Non-African Americans > 60 (> 60)
[2018-01-05 07:43] LABS: Neutrophils # 8.9 K/mcL (1.6-8.9)
[2018-01-05 08:01] LABS: Toxic Granulation Present (Not Present)
[2018-01-05 08:02] LABS: Macrocytosis Present (Not Present); Stomatocytes 1+ (Not Present)
[2018-01-05 08:03] LABS: Poikilocytosis 1+ (Not Present)
--- NOTE | 2018-01-05 09:14 | Internal Med Progress Note ---
Date of Encounter: 01/05/18 Time of Encounter: 09:11 - Assessment and plan (1) Compression fracture of body of thoracic vertebra Current Visit: Yes Status: Acute Assessment and plan: Recent fall. T12 acute on chronic compression fracture. No associated neurological deficit. Pain management by oral narcotic. Consulted spine surgeon who advised MRI without contrast lumbar and thoracic spine. MRI reported mild degenerative changes with chronic appearing compression fracture deformity of T12 resulting in near complete loss of vertebral body height anteriorly. Orthopedic surgeon discussed nonoperative treatment and kyphoplasty of T12. The patient has agreed for kyphoplasty on Wednesday but she is not medically cleared at this point PT/OT may see as she is cleared by orthopedic surgery he would like to perform kyphoplasty on this admit but her lab work is variable and she cannot lie flat at this time-continue with analgesia for pain (2) Hyponatremia Current Visit: Yes Status: Chronic Assessment and plan: Chronic most likely secondary to beer pot[place]ia sodium 131 today we will continue to monitor BMP Continuous salt tabs increase tablets 3 times a day continue with fluid restriction liberalized salt diet Nephrology has been consulted-prescient recommendation (3) Elevated LFTs Current Visit: Yes Status: Chronic Assessment and plan: Chronic fatty liver alcoholism continuing factor. We will continue to monitor LFTs (4) Alcohol abuse Current Visit: Yes Status: Chronic Assessment and plan: This is chronic continue monitor for any alcohol withdrawal continue with CIWA Continue multivitamin with folic acid and thiamine Ativan as needed (5) COPD (chronic obstructive pulmonary disease) Current Visit: Yes Status: Acute Assessment and plan: 1 appears to be stable at this time no wheezing noted continue with oxygen and bronchodilators Qualifiers: COPD type: COPD with acute exacerbation Qualified Code(s): J44.1 - Chronic obstructive pulmonary disease with (acute) exacerbation (6) Periorbital contusion of right eye Current Visit: Yes Status: Acute Assessment and plan: Due to recent fall. CT of brain with no acute findings. No changes in vision. Qualifiers: Encounter type: initial encounter Qualified Code(s): S05.11XA - Contusion of eyeball and orbital tissues, right eye, initial encounter (7) Debility Current Visit: Yes Status: Chronic Assessment and plan: Likely due to chronic alcoholism. Patient is at high risk for falls and had a recent falll. According to social service note patient will be discharged to [facility]-accepted at [facility] (8) Anemia Current Visit: Yes Status: Chronic Assessment and plan: stool occult blood ordered Hemoglobin level fluctuates between 9 and 8.4 with no signs of bleeding Qualifiers: Anemia type: unspecified type Qualified Code(s): D64.9 - Anemia, unspecified (9) Pseudothrombocytopenia Current Visit: Yes Status: Acute Assessment and plan: Folate 17.9 and vitamin B-12 level 259- we will continue to monitor (10) Headache Current Visit: Yes Status: Resolved Assessment and plan: Resolved-No headache voiced at this time Qualifiers: Headache type: unspecified Headache chronicity pattern: unspecified pattern Intractability: not intractable Qualified Code(s): R51 - Headache (11) Anxiety Current Visit: Yes Status: Acute Assessment and plan: 1 continue with home medications (12) DVT prophylaxis Current Visit: Yes Status: Acute Assessment and plan: Continue SCDs, no anticoagulation with anemia - Time Spent With Patient Total time spent is greater than 50% in coordination of care (as documented) at patient's floor/unit and/or counseling patient: - Subjective Interval history: Patient states she feels anxious, otherwise doing well. Lab work is improving - Constitutional Vitals: Temp Pulse Resp BP Pulse Ox 98.6 F 116 14 161/87 98 01/05/18 06:51 01/05/18 06:51 01/05/18 06:51 01/05/18 06:51 01/05/18 06:51 General appearance: Present: cooperative, disheveled, A&O X 3, answers questions appropriately - Head Head exam: Present: atraumatic, normocephalic - Eye Eye exam: Present: PERRL, conjuntiva pink, sclera anicteric Pupils: Present: PERRL - Neck Neck exam general surgery: Present: supple, trachea midline. Absent: lymphadenopathy - Respiratory Respiratory exam: Present: wheezes. Absent: accessory muscle use, rales, rhonchi - Cardiovascular Cardiovascular exam: Present: RRR, +S1, +S2. Absent: diastolic murmur, gallop, rubs, systolic murmur - GI/Abdominal GI/Abdominal exam: Present: normal bowel sounds, soft, no peritoneal signs. Absent: distended, tenderness - Extremities Exam Extremities exam: Present: warm, radial pulses palpable and symmetrical. Absent : calf tenderness, cyanotic, pedal edema - Neurological Exam Neurological exam: Present: CN II-XII intact, oriented X3, no focal deficits. Absent: pronater drift, facial droop, speech deficit - Skin Skin exam: Present: dry, intact Internal Medicine: Result - Labs CBC & Chem 7: 01/05/18 05:51 01/05/18 05:51 Labs: Short CBC 01/05/18 Range/Units 05:51 WBC 13.1 H (4.3-11.1) K/mcL Hgb 8.4 L (11.5-15.4) g/dL Hct 26.3 L (35.3-44.9) % Plt Count TNP Neutrophils # 8.9 (1.6-8.9) K/mcL BMP 01/05/18 05:51 Sodium 131 L Potassium 3.4 L Chloride 98 Carbon Dioxide 26 BUN 11 Creatinine 0.44 L Glucose 160 H Calcium 8.0 L - ABG Interpretation ABG results: PT/INR, D-dimer PT 11.6 Seconds (9.4-12.1) 12/30/17 14:01 Consult Discharge Plan - Plan Referrals: Terrie Joseph, [facility] [employer] [Primary Care Provider] -
[2018-01-05] MEDS: Nystatin SUSP 5 ML UD.LIQ PO SCH ×4 (09:47→20:39)
[2018-01-05] MEDS: Vitamin B Complex/Vit C/Vit E 1 EACH TABLET PO SCH (09:47)
[2018-01-05] MEDS: Multivit/Ca/Min/Fe/FA 1 TAB TABLET PO SCH (09:47)
[2018-01-05] MEDS: Loratadine 10 MG TABLET PO SCH (09:47)
[2018-01-05] MEDS: Metoprolol XL (24 HR) Succ 25 MG TAB.ER.24H PO SCH (09:47)
[2018-01-05] MEDS: (Ipratropium/Albuterol Sulfate [Combivent Respimat In IH SCH ×4 (09:47→20:39)
[2018-01-05] MEDS: Nicotine 14 MG PATCH.TD24 TD SCH (09:47)
[2018-01-05] MEDS: Budesonide/Formoterol 160/4.5 MDI IH SCH ×2 (11:03→23:00)
--- NOTE | 2018-01-05 11:27 | Nephrology Progress Note ---
Date of Encounter: 01/05/18 Time of Encounter: 10:25 - Assessment and Plan (1) Hyponatremia Current Visit: Yes Status: Chronic Chronic euvolemic hyponatremia in setting of alcohol abuse and likely decreased oral intake resulting in low solute consumption contributing to her hyponatremia. Sodium improving, 131. SBP 160-170, increased Metoprolol 50mg daily. (2) Hypertension Current Visit: No Status: Chronic Qualifiers: Hypertension type: unspecified Qualified Code(s): I10 - Essential (primary ) hypertension Subjective Principal diagnosis: back pain, compression fracture Interval history: Laying quietly. Complains of generalized aches. Objective - Vital Signs Vital signs: Vital Signs Temp Pulse Resp BP Pulse Ox 01/05/18 10:58 98.5 F 99 16 122/73 100 01/05/18 06:51 98.6 F 116 14 161/87 98 01/05/18 04:21 20 99 01/05/18 03:00 107 14 161/88 96 01/04/18 23:27 20 98 01/04/18 23:12 98.2 F 104 18 161/88 96 01/04/18 19:40 98.0 F 106 19 170/88 94 01/04/18 16:02 24 99 01/04/18 15:24 97.9 F 96 16 143/92 94 01/04/18 11:54 98.6 F 104 16 129/71 99 Intake and Output 01/04/18 01/05/18 01/05/18 23:59 07:59 15:59 Intake Total 720 / 720 260 / 260 120 / 120 Output Total 300 / 300 300 / 300 Balance 420 / 420 -40 / -40 120 / 120 Intake: Oral 720 / 720 260 / 260 120 / 120 Output: Urine 300 / 300 300 / 300 Other: Meal Dinner Breakfast Percent of Meal Consumed 100% 100% Stool Size Moderate Moderate Stool Consistency formed Stool Characteristics Normal for Patient Stool Color Brown Brown # Voids 1 # Bowel Movements 1 - General Appearance General appearance: Present: well-developed, well-nourished, appears started age EENT: Present: mucous membranes moist Neck: Present: no JVD Respiratory: Present: wheezing Cardiology: Present: no edema, regular rate, regular rhythm Gastrointestinal: Present: normoactive bowel sounds, no tenderness Integumentary: Present: warm and dry Neurologic: Present: alert and oriented x3 - Lab 01/05/18 05:51 01/05/18 05:51 Most recent lab results Calcium 8.0 mg/dL (8.6-10.3) L 01/05/18 05:51 Magnesium 1.0 mg/dL (1.6-2.6) L 01/05/18 05:51 Consult Discharge Plan - Plan Referrals: Terrie Joseph, [employer] [Primary Care Provider] -
[2018-01-06] MEDS: Ipratropium/Albuterol Neb 3 ML IH SCH ×4 (05:02→23:39)
[2018-01-06 05:35] LABS: BUN/Creatinine Ratio 25 (6-26); Blood Urea Nitrogen 9 mg/dL (6-20); Calcium 8.1 mg/dL (8.6-10.3); Carbon Dioxide 28 mEq/L (23-29); Chloride 98 mEq/L (98-107); Glucose 139 mg/dL (70-105); Osmolality,Calculated 279 (280-300); Potassium 3.6 mEq/L (3.5-5.1); Sodium 134 mEq/L (136-145); eGFR For African Americans > 60 (> 60); eGFR For Non-African Americans > 60 (> 60)
[2018-01-06] MEDS: *HR* HYDROcodone/Acet 5/325 mg TABLET PO PRN ×3 (06:01→21:03)
[2018-01-06 06:14] LABS: Mean Platelet Volume 8.8 fL (9.4-12.4)
[2018-01-06 06:15] LABS: Basophils # 0.1 K/mcL (0.0-0.2); Basophils % 0.6 %; Eosinophils # 0.1 K/mcL (0.0-0.6); Eosinophils % 0.4 %; Hematocrit 26.7 % (35.3-44.9); Hemoglobin 8.4 g/dL (11.5-15.4); Immature Granulocytes % 9.3 % (0-4); Lymphocytes % 12.6 %; Mean Corpuscular HGB Conc 31.5 g/dL (31.6-35.5); Mean Corpuscular Hemoglobin 33.7 pg (28.0-33.3); Mean Corpuscular Volume 107.2 fL (83.0-100.0); Mean Platelet Volume 11.6 fL (9.4-12.4); Monocytes % 6.8 %; Neutrophils # 9.8 K/mcL (1.6-8.9); Nucleated Red Blood Cells 0.5 /100 WBC (0); Red Blood Count 2.49 M/mcL (3.82-4.97); Red Cell Distribution Width 15.7 % (11.5-14.5); Segmented Neutrophils % 70.3 %
[2018-01-06 06:16] LABS: Lymphocytes # 1.8 K/mcL (0.6-4.6)
[2018-01-06 08:23] LABS: Alanine Aminotransferase 40 Units/L (7-52); Albumin/Globulin Ratio 1.4 (1.1-2.2); Alkaline Phosphatase 267 Units/L (34-104); Aspartate Amino Transferase 22 Units/L (13-39); Bilirubin,Direct 0.3 mg/dL (0.0-0.2); Bilirubin,Indirect 0.2 mg/dL (0.0-1.2); Bilirubin,Total 0.5 mg/dL (0.3-1.0); Globulin 2.2 g/dL (2.4-3.5); Total Protein 5.2 g/dL (6.4-8.9)
--- NOTE | 2018-01-06 09:17 | Nephrology Progress Note ---
Date of Encounter: 01/06/18 Time of Encounter: 08:50 - Assessment and Plan (1) Hyponatremia Current Visit: Yes Status: Chronic Chronic euvolemic hyponatremia in setting of alcohol abuse and likely decreased oral intake resulting in low solute consumption contributing to her hyponatremia. Sodium improving, 134. Increased Metoprolol 50mg daily yesterday. SBP improved 130-150. (2) Hypertension Current Visit: No Status: Chronic Qualifiers: Hypertension type: unspecified Qualified Code(s): I10 - Essential (primary ) hypertension Subjective Principal diagnosis: back pain, compression fracture Interval history: Sitting up on bed, eating breakfast. States feeling better. Objective - Vital Signs Vital signs: Vital Signs Temp Pulse Resp BP Pulse Ox 01/06/18 06:59 98.3 F 103 16 146/80 96 01/06/18 05:02 24 98 01/06/18 03:25 98.2 F 112 16 154/86 92 01/05/18 23:39 99.1 F 105 16 130/70 90 01/05/18 23:00 16 98 01/05/18 18:23 98.3 F 98 16 148/81 94 01/05/18 15:44 18 92 01/05/18 15:15 98.7 F 97 14 150/89 98 01/05/18 10:58 98.5 F 99 16 122/73 100 Intake and Output 01/05/18 01/06/18 01/06/18 23:59 07:59 15:59 Other: # Voids 1 Weight 60.4 kg Patient Weight 01/06/18 23:59 Weight 60.4 kg - General Appearance General appearance: Present: well-developed, well-nourished, appears started age EENT: Present: mucous membranes moist Neck: Present: no JVD Respiratory: Present: wheezing, rhonchi Cardiology: Present: no edema, regular rate, regular rhythm Gastrointestinal: Present: normoactive bowel sounds, no tenderness Integumentary: Present: warm and dry Neurologic: Present: alert and oriented x3 - Lab 01/06/18 04:27 01/06/18 04:27 Most recent lab results Calcium 8.1 mg/dL (8.6-10.3) L 01/06/18 04:27 Magnesium 1.0 mg/dL (1.6-2.6) L 01/05/18 05:51 - VTE Documentation of Mechanical Device: Intermittent pneumatic compression device Consult Discharge Plan - Plan Referrals: Terrie Joseph CNP [Primary Care Provider] -
[2018-01-06] MEDS: Nicotine 14 MG PATCH.TD24 TD SCH (09:22)
[2018-01-06] MEDS: Nystatin SUSP 5 ML UD.LIQ PO SCH ×4 (09:22→21:04)
[2018-01-06] MEDS: Loratadine 10 MG TABLET PO SCH (09:23)
[2018-01-06] MEDS: Multivit/Ca/Min/Fe/FA 1 TAB TABLET PO SCH (09:23)
[2018-01-06] MEDS: Vitamin B Complex/Vit C/Vit E 1 EACH TABLET PO SCH (09:23)
[2018-01-06] MEDS: Metoprolol XL (24 HR) Succ 25 MG TAB.ER.24H PO SCH (09:23)
[2018-01-06] MEDS: (Ipratropium/Albuterol Sulfate [Combivent Respimat In IH SCH ×4 (09:23→21:05)
[2018-01-06] MEDS: Benzocaine 20% 9 GM GEL..GRAM. TP PRN ×2 (09:25→16:06)
[2018-01-06] MEDS: Budesonide/Formoterol 160/4.5 MDI IH SCH ×2 (10:10→23:40)
--- NOTE | 2018-01-06 17:42 | Spine Progress Note ---
Date of Encounter: 01/06/18 Time of Encounter: 17:40 Subjective Principal diagnosis: back pain, compression fracture Interval history: 57 yo women s/p fall now with significant back pain. AFVSS. She has tenderness over the thoracolumbar region but is neurovascularly intact. MRI reveals acute T12 compression Fracture with significant 70% loss of height. Impression: 1) Vertebral compression fracture T12 2) Osteopenia Plan: The patient is not a surgical candidate and continues with significant medical comorbidities. She is also not likely to be particularly compliant with bracing. Our current literature suggest hissignificant difference in healing with or without brace treatment. Therefore I suggest she continue analgesics and mobilize as tolerated. She should follow-up in the [facility] in 2 months with me to get repeat radiographs to assess rate of healing. Objective Vital signs: Vital Signs Temp Pulse Resp BP Pulse Ox 01/06/18 14:24 98.5 F 98 18 180/98 95 01/06/18 13:54 18 99 01/06/18 11:00 98.8 F 99 18 151/81 99 01/06/18 10:10 16 96 01/06/18 06:59 98.3 F 103 16 146/80 96 01/06/18 05:02 24 98 01/06/18 03:25 98.2 F 112 16 154/86 92 01/05/18 23:39 99.1 F 105 16 130/70 90 01/05/18 23:00 16 98 01/05/18 18:23 98.3 F 98 16 148/81 94 Intake and Output 01/06/18 01/06/18 01/06/18 07:59 15:59 23:59 Other: # Voids 1 Weight 60.4 kg Patient Weight 01/06/18 23:59 Weight 60.4 kg - Labs CBC & BMP: 01/06/18 04:27 01/06/18 04:27 Labs: Abnormal lab results WBC 13.9 K/mcL (4.3-11.1) H 01/06/18 04:27 RBC 2.49 M/mcL (3.82-4.97) L 01/06/18 04:27 Hgb 8.4 g/dL (11.5-15.4) L 01/06/18 04:27 Hct 26.7 % (35.3-44.9) L 01/06/18 04:27 MCV 107.2 fL (83.0-100.0) H 01/06/18 04:27 MCH 33.7 pg (28.0-33.3) H 01/06/18 04:27 MCHC 31.5 g/dL (31.6-35.5) L 01/06/18 04:27 RDW 15.7 % (11.5-14.5) H 01/06/18 04:27 MPV 8.8 fL (9.4-12.4) L 01/06/18 05:44 Immature Gran % 9.3 % (0-4) H 01/06/18 04:27 Neutrophils # 9.8 K/mcL (1.6-8.9) H 01/06/18 04:27 Nucleated RBCs/100 WBC 0.5 /100 WBC (0) H 01/06/18 04:27 Reactive Lymphocytes Present (Not Present) A 01/04/18 03:35 Toxic Granulation Present (Not Present) A 01/05/18 05:51 Immature Plt Fraction 17.0 % (1.1-6.1) H 01/04/18 03:35 Poikilocytosis 1+ (Not Present) A 01/05/18 05:51 Macrocytosis Present (Not Present) A 01/05/18 05:51 Stomatocytes 1+ (Not Present) A 01/05/18 05:51 Sodium 134 mEq/L (136-145) L 01/06/18 04: Creatinine 0.36 mg/dL (0.60-1.20) L 01/06/18 04:27 Glucose 139 mg/dL (70-105) H 01/06/18 04:27 POC Glucose 159 mg/dL (70-99) H 12/30/17 14:00 Calculated Osmolality 279 (280-300) L 01/06/18 04:27 Calcium 8.1 mg/dL (8.6-10.3) L 01/06/18 04:27 Magnesium 1.0 mg/dL (1.6-2.6) L 01/05/18 05:51 Direct Bilirubin 0.3 mg/dL (0.0-0.2) H 01/06/18 04:27 Alkaline Phosphatase 267 Units/L (34-104) H 01/06/18 04:27 Serum Total Protein 5.2 g/dL (6.4-8.9) L 01/06/18 04:27 Albumin 3.0 g/dL (3.5-5.7) L 01/06/18 04:27 Globulin 2.2 g/dL (2.4-3.5) L 01/06/18 04:27 Folate 17.9 ng/mL (3.0-16.0) H 01/01/18 03:56 Free T4 0.55 ng/dl (0.70-2.00) L 01/03/18 04:10 Consult Discharge Plan - Plan Referrals: Terrie Joseph, [employer] [Primary Care Provider] -
--- NOTE | 2018-01-06 20:59 | Internal Med Progress Note ---
Date of Encounter: 01/06/18 Time of Encounter: 11:00 - Assessment and plan (1) Compression fracture of body of thoracic vertebra Current Visit: Yes Status: Acute Assessment and plan: T12 compression fx- ortho spine consulted nonsurgical candidate does not recommend bracing dt noncompliance PT/OT eval will need rehab- will be dc [facility] will follow up with orhto spine in 2 months R (2) Hyponatremia Current Visit: Yes Status: Chronic Assessment and plan: Chronic most likely secondary to beer [place] sodium 134 today we will continue to monitor BMP Continuous salt tabs increase tablets 3 times a day continue with fluid restriction liberalized salt diet Nephrology has been consulted-prescient recommendation (3) Elevated LFTs Current Visit: Yes Status: Chronic Assessment and plan: Chronic fatty liver alcoholism continuing factor. We will continue to monitor LFTs (4) Alcohol abuse Current Visit: Yes Status: Chronic Assessment and plan: This is chronic continue monitor for any alcohol withdrawal continue with CIWA Continue multivitamin with folic acid and thiamine Ativan as needed (5) COPD (chronic obstructive pulmonary disease) Current Visit: Yes Status: Acute Assessment and plan: 1 appears to be stable at this time no wheezing noted continue with oxygen and bronchodilators Qualifiers: COPD type: COPD with acute exacerbation Qualified Code(s): J44.1 - Chronic obstructive pulmonary disease with (acute) exacerbation (6) Periorbital contusion of right eye Current Visit: Yes Status: Acute Assessment and plan: Due to recent fall. CT of brain with no acute findings. No changes in vision. Qualifiers: Encounter type: initial encounter Qualified Code(s): S05.11XA - Contusion of eyeball and orbital tissues, right eye, initial encounter (7) Debility Current Visit: Yes Status: Chronic Assessment and plan: Likely due to chronic alcoholism. Patient is at high risk for falls and had a recent falll. According to social service note patient will be discharged to [facility]-accepted at [facility] (8) Anemia Current Visit: Yes Status: Chronic Assessment and plan: stool occult blood ordered Hemoglobin level fluctuates between 9 and 8.4 with no signs of bleeding Qualifiers: Anemia type: unspecified type Qualified Code(s): D64.9 - Anemia, unspecified (9) Pseudothrombocytopenia Current Visit: Yes Status: Acute Assessment and plan: Folate 17.9 and vitamin B-12 level 259- we will continue to monitor (10) Headache Current Visit: Yes Status: Resolved Assessment and plan: Resolved-No headache voiced at this time Qualifiers: Headache type: unspecified Headache chronicity pattern: unspecified pattern Intractability: not intractable Qualified Code(s): R51 - Headache (11) Anxiety Current Visit: Yes Status: Acute Assessment and plan: 1 continue with home medications (12) DVT prophylaxis Current Visit: Yes Status: Acute Assessment and plan: Continue SCDs, no anticoagulation with anemia - Time Spent With Patient Total time spent is greater than 50% in coordination of care (as documented) at patient's floor/unit and/or counseling patient: - Subjective Interval history: Patient was seen at bedside earlier today, She has no complaints, discussed possible discharge to [facility] which she verbalized understanding - Constitutional Vitals: Temp Pulse Resp BP Pulse Ox 98.0 F 95 18 153/70 95 01/06/18 18:56 01/06/18 18:56 01/06/18 18:56 01/06/18 18:56 01/06/18 18:56 General appearance: Present: cooperative, disheveled, A&O X 3, answers questions appropriately - Head Head exam: Present: normocephalic Additional comments: healing open blisters to face - Eye Eye exam: Present: PERRL, conjuntiva pink, sclera anicteric Pupils: Present: PERRL - Neck Neck exam general surgery: Present: supple, trachea midline. Absent: lymphadenopathy - Respiratory Respiratory exam: Present: rales. Absent: accessory muscle use, rhonchi, wheezes - Cardiovascular Cardiovascular exam: Present: RRR, +S1, +S2. Absent: diastolic murmur, gallop, rubs, systolic murmur - GI/Abdominal GI/Abdominal exam: Present: normal bowel sounds, soft, no peritoneal signs. Absent: distended, tenderness - Extremities Exam Extremities exam: Present: warm, radial pulses palpable and symmetrical. Absent : calf tenderness, cyanotic, pedal edema - Neurological Exam Neurological exam: Present: CN II-XII intact, oriented X3, no focal deficits. Absent: pronater drift, facial droop, speech deficit - Skin Skin exam: Present: dry, intact Internal Medicine: Result - Labs CBC & Chem 7: 01/06/18 04:27 01/06/18 04:27 Labs: Short CBC 01/06/18 Range/Units 04:27 WBC 13.9 H (4.3-11.1) K/mcL Hgb 8.4 L (11.5-15.4) g/dL Hct 26.7 L (35.3-44.9) % Plt Count TNP Neutrophils # 9.8 H (1.6-8.9) K/mcL BMP 01/06/18 04:27 Sodium 134 L Potassium 3.6 Chloride 98 Carbon Dioxide 28 BUN 9 Creatinine 0.36 L Glucose 139 H Calcium 8.1 L Liver Function 01/06/18 Range/Units 04:27 Total Bilirubin 0.5 (0.3-1.0) mg/dL Direct Bilirubin 0.3 H (0.0-0.2) mg/dL AST 22 (13-39) Units/L ALT 40 (7-52) Units/L Alkaline Phosphatase 267 H (34-104) Units/L Albumin 3.0 L (3.5-5.7) g/dL - ABG Interpretation ABG results: PT/INR, D-dimer PT 11.6 Seconds (9.4-12.1) 12/30/17 14:01 - VTE Documentation of Mechanical Device: Intermittent pneumatic compression device Consult Discharge Plan - Plan Referrals: Terrie Joseph, [employer] [Primary Care Provider] -
[2018-01-07] MEDS: Ipratropium/Albuterol Neb 3 ML IH SCH ×4 (04:27→23:00)
[2018-01-07] MEDS: *HR* HYDROcodone/Acet 5/325 mg TABLET PO PRN ×3 (04:41→23:08)
[2018-01-07] MEDS: Multivit/Ca/Min/Fe/FA 1 TAB TABLET PO SCH (08:56)
[2018-01-07] MEDS: Vitamin B Complex/Vit C/Vit E 1 EACH TABLET PO SCH (08:56)
[2018-01-07] MEDS: Loratadine 10 MG TABLET PO SCH (08:56)
[2018-01-07] MEDS: Metoprolol XL (24 HR) Succ 25 MG TAB.ER.24H PO SCH (08:56)
[2018-01-07] MEDS: Nystatin SUSP 5 ML UD.LIQ PO SCH ×4 (08:56→20:06)
[2018-01-07] MEDS: Nicotine 14 MG PATCH.TD24 TD SCH (08:56)
[2018-01-07] MEDS: (Ipratropium/Albuterol Sulfate [Combivent Respimat In IH SCH ×4 (08:59→20:13)
[2018-01-07] MEDS: Acetaminophen 325 MG TABLET PO PRN ×2 (11:34→20:02)
[2018-01-07] MEDS: Budesonide/Formoterol 160/4.5 MDI IH SCH ×2 (11:37→23:00)
[2018-01-07 13:27] LABS: Basophils % 0.1 %; Eosinophils # 0.1 K/mcL (0.0-0.6); Eosinophils % 0.3 %; Hematocrit 27.7 % (35.3-44.9); Immature Granulocytes % 3.5 % (0-4); Lymphocytes # 1.4 K/mcL (0.6-4.6); Lymphocytes % 8.9 %; Mean Corpuscular HGB Conc 32.5 g/dL (31.6-35.5); Mean Corpuscular Hemoglobin 33.7 pg (28.0-33.3); Mean Corpuscular Volume 103.7 fL (83.0-100.0); Mean Platelet Volume 10.6 fL (9.4-12.4); Monocytes # 1.2 K/mcL (0.0-1.3); Monocytes % 7.2 %; Neutrophils # 12.7 K/mcL (1.6-8.9); Platelet Count 182 K/mcL (140-400); Red Blood Count 2.67 M/mcL (3.82-4.97); Red Cell Distribution Width 15.4 % (11.5-14.5)
[2018-01-07 13:50] LABS: BUN/Creatinine Ratio 21 (6-26); Blood Urea Nitrogen 9 mg/dL (6-20); Calcium 8.8 mg/dL (8.6-10.3); Carbon Dioxide 35 mEq/L (23-29); Chloride 88 mEq/L (98-107); Glucose 95 mg/dL (70-105); Osmolality,Calculated 264 (280-300); Potassium 4.1 mEq/L (3.5-5.1); Sodium 128 mEq/L (136-145); eGFR For African Americans > 60 (> 60); eGFR For Non-African Americans > 60 (> 60)
--- NOTE | 2018-01-07 13:53 | Nephrology Progress Note ---
Date of Encounter: 01/07/18 Time of Encounter: 12:00 - Assessment and Plan (1) Hyponatremia Current Visit: Yes Status: Chronic Chronic euvolemic hyponatremia in setting of alcohol abuse and likely decreased oral intake resulting in low solute consumption contributing to her hyponatremia. Today labs pending. (2) Hypertension Current Visit: No Status: Chronic Qualifiers: Hypertension type: unspecified Qualified Code(s): I10 - Essential (primary ) hypertension Subjective Principal diagnosis: back pain, compression fracture Interval history: Sitting up on bed, watching tv. Objective - Vital Signs Vital signs: Vital Signs Temp Pulse Resp BP Pulse Ox 01/07/18 11:37 16 99 01/07/18 11:00 98.1 F 90 18 177/98 98 01/07/18 07:39 98.7 F 87 18 163/82 94 01/07/18 05:05 67 166/90 01/07/18 04:42 24 95 01/07/18 04:35 98.2 F 93 18 183/99 98 01/07/18 02:10 90 133/70 01/06/18 23:41 18 99 01/06/18 23:22 98.5 F 96 18 181/97 95 01/06/18 18:56 98.0 F 95 18 153/70 95 01/06/18 14:24 98.5 F 98 18 180/98 95 01/06/18 13:54 18 99 Intake and Output 01/06/18 01/07/18 01/07/18 23:59 07:59 15:59 Intake Total 480 / 480 360 / 360 Balance 480 / 480 360 / 360 Intake: Oral 480 / 480 360 / 360 Other: Meal Dinner Percent of Meal Consumed 75% Stool Size Small Stool Consistency soft formed Stool Color Brown # Voids 1 1 # Urine Diapers 1 1 Weight 58.7 kg Patient Weight 01/07/18 23:59 Weight 58.7 kg - General Appearance General appearance: Present: well-developed, well-nourished, appears started age EENT: Present: mucous membranes moist Neck: Present: no JVD Respiratory: Present: clear Cardiology: Present: no edema, regular rate, regular rhythm Gastrointestinal: Present: normoactive bowel sounds, no tenderness Integumentary: Present: warm and dry Neurologic: Present: alert and oriented x3 - Lab 01/07/18 13:11 01/07/18 13:11 Most recent lab results Calcium 8.8 mg/dL (8.6-10.3) 01/07/18 13:11 Magnesium 1.0 mg/dL (1.6-2.6) L 01/05/18 05:51 - VTE Documentation of Mechanical Device: Intermittent pneumatic compression device Consult Discharge Plan - Plan Referrals: Terrie Joseph, [employer] [Primary Care Provider] -
[2018-01-07] MEDS: Ibuprofen 200 MG TABLET PO PRN (13:59)
--- NOTE | 2018-01-07 17:55 | Internal Med Progress Note ---
Date of Encounter: 01/07/18 Time of Encounter: 17:52 - Assessment and plan (1) Compression fracture of body of thoracic vertebra Current Visit: Yes Status: Acute Assessment and plan: T12 compression fx- ortho spine consulted nonsurgical candidate does not recommend bracing dt noncompliance PT/OT eval will need rehab- will be dc to [facility] will follow up with orhto spine in 2 months R (2) Hyponatremia Current Visit: Yes Status: Chronic Assessment and plan: Chronic most likely secondary to beer [place] sodium suddenly dropped from 134 to 128 we will recheck in am if improved will discharge Continuous salt tabs increase tablets 3 times a day continue with fluid restriction liberalized salt diet Nephrology has been consulted-prescient recommendation (3) Elevated LFTs Current Visit: Yes Status: Chronic Assessment and plan: Chronic fatty liver alcoholism continuing factor. We will continue to monitor LFTs (4) Alcohol abuse Current Visit: Yes Status: Chronic Assessment and plan: This is chronic continue monitor for any alcohol withdrawal continue with CIWA Continue multivitamin with folic acid and thiamine Ativan as needed (5) COPD (chronic obstructive pulmonary disease) Current Visit: Yes Status: Acute Assessment and plan: 1 appears to be stable at this time no wheezing noted continue with oxygen and bronchodilators Qualifiers: COPD type: COPD with acute exacerbation Qualified Code(s): J44.1 - Chronic obstructive pulmonary disease with (acute) exacerbation (6) Periorbital contusion of right eye Current Visit: Yes Status: Acute Assessment and plan: Due to recent fall. CT of brain with no acute findings. No changes in vision. Qualifiers: Encounter type: initial encounter Qualified Code(s): S05.11XA - Contusion of eyeball and orbital tissues, right eye, initial encounter (7) Debility Current Visit: Yes Status: Chronic Assessment and plan: Likely due to chronic alcoholism. Patient is at high risk for falls and had a recent falll. According to social service note patient will be discharged to [facility]-accepted at [facility] (8) Anemia Current Visit: Yes Status: Chronic Assessment and plan: stool occult blood ordered Hemoglobin level fluctuates between 9 and 8.4 with no signs of bleeding Qualifiers: Anemia type: unspecified type Qualified Code(s): D64.9 - Anemia, unspecified (9) Pseudothrombocytopenia Current Visit: Yes Status: Acute Assessment and plan: platelet count citrate 299.2 (10) Headache Current Visit: Yes Status: Resolved Assessment and plan: Resolved-No headache voiced at this time Qualifiers: Headache type: unspecified Headache chronicity pattern: unspecified pattern Intractability: not intractable Qualified Code(s): R51 - Headache (11) Anxiety Current Visit: Yes Status: Acute Assessment and plan: 1 continue with home medications (12) DVT prophylaxis Current Visit: Yes Status: Acute Assessment and plan: Continue SCDs, no anticoagulation with anemia - Time Spent With Patient Total time spent is greater than 50% in coordination of care (as documented) at patient's floor/unit and/or counseling patient: - Subjective Interval history: Patient was seen at bedside earlier today, She has no complaints, had planned on discharging to [facility] however had sudden drop in sodium level. We will monitor and recheck in am. Explained to patient she verbalized understanding - Constitutional Vitals: Temp Pulse Resp BP Pulse Ox 98.2 F 85 16 180/90 99 01/07/18 15:51 01/07/18 15:51 01/07/18 16:21 01/07/18 15:51 01/07/18 16:21 General appearance: Present: cooperative, disheveled, A&O X 3, answers questions appropriately - Head Head exam: Present: atraumatic, normocephalic - Eye Eye exam: Present: PERRL, conjuntiva pink, sclera anicteric Pupils: Present: PERRL - Neck Neck exam general surgery: Present: supple, trachea midline. Absent: lymphadenopathy - Respiratory Respiratory exam: Present: CTAB. Absent: accessory muscle use, rales, rhonchi, wheezes - Cardiovascular Cardiovascular exam: Present: RRR, +S1, +S2. Absent: diastolic murmur, gallop, rubs, systolic murmur - GI/Abdominal GI/Abdominal exam: Present: normal bowel sounds, soft, no peritoneal signs. Absent: distended, tenderness - Extremities Exam Extremities exam: Present: warm, radial pulses palpable and symmetrical. Absent : calf tenderness, cyanotic, pedal edema - Neurological Exam Neurological exam: Present: CN II-XII intact, oriented X3, no focal deficits. Absent: pronater drift, facial droop, speech deficit - Skin Skin exam: Present: dry, intact Internal Medicine: Result - Labs CBC & Chem 7: 01/07/18 13:11 01/07/18 13:11 Labs: Short CBC 01/07/18 Range/Units 13:11 WBC 15.9 H (4.3-11.1) K/mcL Hgb 9.0 L (11.5-15.4) g/dL Hct 27.7 L (35.3-44.9) % Plt Count 182 (140-400) K/mcL Neutrophils # 12.7 H (1.6-8.9) K/mcL BMP 01/07/18 13:11 Sodium 128 L Potassium 4.1 Chloride 88 L Carbon Dioxide 35 H BUN 9 Creatinine 0.43 L Glucose 95 Calcium 8.8 - ABG Interpretation ABG results: PT/INR, D-dimer PT 11.6 Seconds (9.4-12.1) 12/30/17 14:01 - VTE Documentation of Mechanical Device: Intermittent pneumatic compression device Consult Discharge Plan - Plan Referrals: Terrie Joseph, [employer] [Primary Care Provider] -
[2018-01-07] MEDS ORDERED: hydrALAZINE 10 MG TABLET PO PRN (23:21)
[2018-01-08 03:14] LABS: Basophils % 0.1 %; Eosinophils # 0.1 K/mcL (0.0-0.6); Eosinophils % 0.5 %; Hematocrit 28.1 % (35.3-44.9); Hemoglobin 9.3 g/dL (11.5-15.4); Immature Granulocytes % 3.8 % (0-4); Lymphocytes # 1.4 K/mcL (0.6-4.6); Lymphocytes % 9.6 %; Mean Corpuscular HGB Conc 33.1 g/dL (31.6-35.5); Mean Corpuscular Hemoglobin 34.1 pg (28.0-33.3); Mean Corpuscular Volume 102.9 fL (83.0-100.0); Monocytes # 1.1 K/mcL (0.0-1.3); Monocytes % 7.6 %; Platelet Count 274 K/mcL (140-400); Red Blood Count 2.73 M/mcL (3.82-4.97); Red Cell Distribution Width 15.3 % (11.5-14.5); Segmented Neutrophils % 78.4 %
[2018-01-08 03:34] LABS: Albumin 3.5 g/dL (3.5-5.7); Albumin/Globulin Ratio 1.2 (1.1-2.2); BUN/Creatinine Ratio 20 (6-26); Bilirubin,Direct 0.3 mg/dL (0.0-0.2); Bilirubin,Indirect 0.3 mg/dL (0.0-1.2); Bilirubin,Total 0.6 mg/dL (0.3-1.0); Blood Urea Nitrogen 9 mg/dL (6-20); Calcium 8.6 mg/dL (8.6-10.3); Carbon Dioxide 32 mEq/L (23-29); Chloride 90 mEq/L (98-107); Glucose 98 mg/dL (70-105); Osmolality,Calculated 267 (280-300); Potassium 4.2 mEq/L (3.5-5.1); Sodium 129 mEq/L (136-145); Total Protein 6.5 g/dL (6.4-8.9); eGFR For African Americans > 60 (> 60); eGFR For Non-African Americans > 60 (> 60)
[2018-01-08] MEDS: Ipratropium/Albuterol Neb 3 ML IH SCH ×2 (04:14→10:57)
[2018-01-08] MEDS: *HR* HYDROcodone/Acet 5/325 mg TABLET PO PRN ×2 (05:25→12:27)
--- NOTE | 2018-01-08 09:21 | Nephrology Progress Note ---
Date of Encounter: 01/08/18 Time of Encounter: 08:50 - Assessment and Plan (1) Hyponatremia Current Visit: Yes Status: Chronic Chronic euvolemic hyponatremia in setting of alcohol abuse and likely decreased oral intake resulting in low solute consumption contributing to her hyponatremia. Continue salt tablets. Sodium 128-129. Renal fct stable. (2) Hypertension Current Visit: No Status: Chronic Qualifiers: Hypertension type: unspecified Qualified Code(s): I10 - Essential (primary ) hypertension Subjective Principal diagnosis: back pain, compression fracture Interval history: Sitting up on bed, watching tv. Objective - Vital Signs Vital signs: Vital Signs Temp Pulse Resp BP Pulse Ox 01/08/18 07:17 98.5 F 107 16 140/80 93 01/08/18 04:14 17 98 01/08/18 03:20 98.8 F 88 18 178/90 90 01/07/18 23:01 17 98 01/07/18 22:46 98.3 F 80 18 195/98 99 01/07/18 18:48 98.8 F 85 18 161/87 96 01/07/18 16:21 16 99 01/07/18 15:51 98.2 F 85 17 180/90 95 01/07/18 11:37 16 99 01/07/18 11:00 98.1 F 90 18 177/98 98 Intake and Output 01/07/18 01/08/18 01/08/18 23:59 07:59 15:59 Intake Total 960 / 960 480 / 480 Output Total 550 / 550 450 / 450 Balance 410 / 410 30 / 30 Intake: Oral 960 / 960 480 / 480 Output: Urine 550 / 550 450 / 450 Other: # Voids 2 Weight 58.94 kg Patient Weight 01/08/18 23:59 Weight 58.94 kg - General Appearance General appearance: Present: well-developed, well-nourished, appears started age EENT: Present: mucous membranes moist Neck: Present: no JVD Respiratory: Present: rhonchi Cardiology: Present: no edema, regular rate, regular rhythm Gastrointestinal: Present: normoactive bowel sounds, no tenderness Integumentary: Present: warm and dry Neurologic: Present: alert and oriented x3 - Lab 01/08/18 03:06 01/08/18 03:06 Most recent lab results Calcium 8.6 mg/dL (8.6-10.3) 01/08/18 03:06 Magnesium 1.0 mg/dL (1.6-2.6) L 01/05/18 05:51 - VTE Documentation of Mechanical Device: Intermittent pneumatic compression device Consult Discharge Plan - Plan Referrals: Terrie Joseph, [facility] [Primary Care Provider] -
[2018-01-08] MEDS: Nystatin SUSP 5 ML UD.LIQ PO SCH ×2 (09:47→12:27)
[2018-01-08] MEDS: Multivit/Ca/Min/Fe/FA 1 TAB TABLET PO SCH (09:47)
[2018-01-08] MEDS: Ibuprofen 200 MG TABLET PO PRN (09:47)
[2018-01-08] MEDS: Vitamin B Complex/Vit C/Vit E 1 EACH TABLET PO SCH (09:47)
[2018-01-08] MEDS: Loratadine 10 MG TABLET PO SCH (09:47)
[2018-01-08] MEDS: Metoprolol XL (24 HR) Succ 25 MG TAB.ER.24H PO SCH (09:48)
[2018-01-08] MEDS: Nicotine 14 MG PATCH.TD24 TD SCH (09:48)
[2018-01-08] MEDS: (Ipratropium/Albuterol Sulfate [Combivent Respimat In IH SCH ×2 (09:51→12:35)
[2018-01-08] MEDS: Budesonide/Formoterol 160/4.5 MDI IH SCH (10:57)
[2018-01-08 11:33] LABS: BUN/Creatinine Ratio 19 (6-26); Blood Urea Nitrogen 8 mg/dL (6-20); Calcium 8.7 mg/dL (8.6-10.3); Carbon Dioxide 30 mEq/L (23-29); Chloride 91 mEq/L (98-107); Glucose 162 mg/dL (70-105); Osmolality,Calculated 270 (280-300); Potassium 3.9 mEq/L (3.5-5.1); Sodium 129 mEq/L (136-145); eGFR For African Americans > 60 (> 60); eGFR For Non-African Americans > 60 (> 60)
[2018-01-08 12:53] LABS: Bilirubin,Urine Negative (Negative); Blood,Urine Negative (Negative); Color,Urine Yellow (Yellow); Glucose,Urine (UA) Normal (Normal); Ketones,Urine Negative (Negative); Leukocyte Esterase,Urine Trace (Negative); Nitrite,Urine Negative (Negative); PH,Urine 7.5 pH Units (5.0-8.0); Protein,Urine Negative (Neg-Trace); Urobilinogen,Urine Normal (Normal)
[2018-01-08 12:55] LABS: Bacteria,Urine None Seen per hpf (None-Few); Hyaline Casts,Urine None Seen per lpf (None-Few); Squamous Epithelial Cell,Urine Moderate per lpf (None-Few); WBC,Urine 0-3 per hpf (0-3)
[2018-01-08 13:00] LABS: Clarity,Urine Clear (Clear)
--- NOTE | 2018-01-08 13:04 | Discharge Summary ---
- NOTES TO OUTPATIENT PROVIDER Notes to Outpatient Provider: chroninc hyponatremia- continue to monitor She should [facility]-up [facility] in 2 months to get repeat radiographs to assess rate of healing. Orders not resulted at time of discharge: Pending orders 01/08/18 12:40 Urinalysis Reflex Cult & Micro [URIN] Stat Date of Encounter: 01/08/18 Time of Encounter: 12:50 - Discharge Diagnosis (1) Compression fracture of body of thoracic vertebra Priority: Primary Status: Acute (2) Hyponatremia Priority: Primary Status: Chronic (3) Elevated LFTs Priority: Secondary Status: Chronic (4) Alcohol abuse Priority: Secondary Status: Chronic (5) COPD (chronic obstructive pulmonary disease) Priority: Primary Status: Acute Qualifiers: COPD type: COPD with acute exacerbation Qualified Code(s): J44.1 - Chronic obstructive pulmonary disease with (acute) exacerbation (6) Periorbital contusion of right eye Priority: Secondary Status: Acute Qualifiers: Encounter type: initial encounter Qualified Code(s): S05.11XA - Contusion of eyeball and orbital tissues, right eye, initial encounter (7) Debility Priority: Secondary Status: Chronic (8) Anemia Priority: Secondary Status: Chronic Qualifiers: Anemia type: unspecified type Qualified Code(s): D64.9 - Anemia, unspecified (9) Pseudothrombocytopenia Priority: Secondary Status: Acute (10) Headache Priority: Secondary Status: Resolved Qualifiers: Headache type: unspecified Headache chronicity pattern: unspecified pattern Intractability: not intractable Qualified Code(s): R51 - Headache (11) Anxiety Priority: Secondary Status: Acute Hospital course: Ms. Rodriguez is a 57 year old female past medical hx of COPD on home o@ at 2L NC chronic ETOH abuse drink 4-6 pack for several years TIA HTN hepatic steatosis secondary to ETOH and depression. She was recently discharged from [facility] after suffering facial neely, from smoking while using O2. She was admitted at this facility last month r/o bilary disease and UTI- ECF recommended however patient declined. She presented to the ED for evlauation of chronic low back pain secondary to fall. She fell approx 3 weeks ago however never did see physician , she recently fell again hit her face and her back. Upon presentation to ED electrolyte imbalance was noted with a low sodium that appear to be chronic. Lumbar Xray did show acute compression fracture superimposed on chronic compression fracture of T12. MRI of thoracic and lumbar spine showed an acute on chronic appearing compression fracture T12 4mm retropulsed bone resulting in mild to moderate focal narrowing of the spinal canal. Orthopedic spine was consulted - she is not a surgical candidate dt significant medical comorbidities , no bracing dt compliance, advised to continue with analgesia and physical therapy- follow up in 2 mos to repeat radiographs to assess rate of healing . She was also seen by by nephrology for hyponatrenia, she was placed on salt tabs 1gm TID and fluid restriction. Sodium improved- continue to monitor as outpatient . PT/OT recommend rehab she has been accepted at [facility]. She is hemodynamically stable at this time. Lab is unchanged and stable - she has had a slight elevation in white count however she has been receiving steroids which maybe contributing to the rise . Urine is clean CXR with no acute process, afebrile. She is ready for discharge Discharge discussed with: patient - Time Spent with Patient Total time spent providing and/or coordinating discharge services: - Discharge Medications Prescriptions: HYDROcodone/Acet 5/325 mg [[place] 5-325 mg] 1 tab PO Q6HR PRN 2 Days #8 tablet PRN Reason: Moderate Pain Home Medications: Ipratropium/Albuterol Sulfate [Combivent Respimat Inhal [place]] 1 puff IH QID [History] Guaifenesin [Mucinex] 600 mg PO Q12H 09/13/17 [History] Oxygen 2 l NS AD 09/13/17 [History] Omeprazole [PriLOSEC] 40 mg PO DAILY@0630 capsule. 11/27/17 [Rx] Acetaminophen [Tylenol] 325 mg PO Q4HR PRN 12/30/17 [History] Budesonide/Formoterol 160/4.5 [Symbicort 160/4.5] 1 puff IH BID 12/30/17 [ History] Cetirizine HCl [All Day Allergy] 10 mg PO DAILY 12/30/17 [History] Escitalopram [Lexapro] 10 mg PO DAILY 12/30/17 [History] Ibuprofen [Advil] 200 mg PO DAILY PRN 12/30/17 [History] Loperamide [Imodium] 2 mg PO Q4HR 12/30/17 [History] Meloxicam 15 mg PO DAILY 12/30/17 [History] Metoprolol XL (24 HR) Succ [Toprol Xl] 25 mg PO DAILY 12/30/17 [History] Mv,Ca,Iron,Mn/FA/Chol/Boo/PABA [Body, Hair, Skin and Nails Cap] 1 cap PO DAILY 12/30/17 [History] Vitamin B Complex/Vit C/Vit E [Stresstab] 1 cap PO DAILY 12/30/17 [History] hydrOXYzine HCl [Hydroxyzine HCl] 25 mg PO TID 12/30/17 [History] HYDROcodone/Acet 5/325 mg [[place] 5-325 mg] 1 tab PO Q6HR PRN 2 Days #8 tablet [Rx] Ipratropium/Albuterol Neb [Duoneb] 3 ml IH QIDR inhsol 01/08/18 [Rx] Lidocaine Patch [Lidoderm 5% patch] 1 each TP DAILY adh..patch 01/08/18 [Rx] Lidocaine Viscous Oral Soln 15 ml MM BID PRN solution 01/08/18 [Rx] Mupirocin [Bactroban Oint] 1 appl NS BID tube 01/08/18 [Rx] Nicotine Patch [Nicoderm] 14 mg TD DAILY patch.td24 01/08/18 [Rx] Sodium Chloride 1 gm PO TID tablet 01/08/18 [Rx] Allergies/Adverse Reactions: 3 Allergy/AdvReac Type Severity Reaction Status Date / Time No Known Allergies Allergy Verified 12/30/17 16:19 Date of admission: 01/03/18 07:40 Primary care physician: Terrie Joseph CNP Consults: 01/03/18 19:17 Consult to Physical Therapy [CONS] Routine Comment: Evaluate, develop and implement POC Reason for Consult: FractureDr aliza with consult Does patient have active BEDREST order?: No Is patient medically & hemodynamically stable?: Yes Patient assessed for mobility or mobilized this visit?: No 01/03/18 19:27 Consult to Occupational Therapy [CONS] Routine Comment: Evaluate, develop and implement POC Reason for Consult: FractureDr aliza with consult Does patient have active BEDREST order?: No Is patient medically & hemodynamically stable?: Yes Patient assessed for mobility or mobilized this visit?: No Discharging clinician: Eloisa Cummings Anticipated date of discharge: 01/08/18 - Constitutional Vitals: Temp Pulse Resp BP Pulse Ox 98.6 F 71 14 123/73 92 01/08/18 11:29 01/08/18 11:29 01/08/18 11:29 01/08/18 11:29 01/08/18 11:29 General appearance: Present: cooperative, disheveled, A&O X 3, answers questions appropriately - Head Head exam: Present: atraumatic, normocephalic - Eye Eye exam: Present: PERRL, conjuntiva pink, sclera anicteric Pupils: Present: PERRL - Neck Neck exam general surgery: Present: supple, trachea midline. Absent: lymphadenopathy - Respiratory Respiratory exam: Present: CTAB. Absent: accessory muscle use, rales, rhonchi, wheezes - Cardiovascular Cardiovascular exam: Present: RRR, +S1, +S2. Absent: diastolic murmur, gallop, rubs, systolic murmur - GI/Abdominal GI/Abdominal exam: Present: normal bowel sounds, soft, no peritoneal signs. Absent: distended, tenderness - Extremities Exam Extremities exam: Present: warm, radial pulses palpable and symmetrical. Absent : calf tenderness, cyanotic, pedal edema - Neurological Exam Neurological exam: Present: CN II-XII intact, oriented X3, no focal deficits. Absent: pronater drift, facial droop, speech deficit - Skin Skin exam: Present: dry, intact - Patient Status Disposition: Transfer SNF Condition: Fair Functional capacity at discharge: uses cane/walker Overall status at discharge: patient is progressing back to baseline - Discharge Instructions Follow Up With: Terrie Joseph CNP [Primary Care Provider] - William Torres Jr, MD [Partnered Physician] - - Diet and Activity Activity: as per physical therapy Diet: regular diet - VTE Documentation of Mechanical Device: Intermittent pneumatic compression device
--- NOTE | 2018-01-08 13:38 | Physician Discharge Referral ---
ExtendedCare Referral Info Transfer To: [facility] Provider in Charge: Eloisa Cummings Provider in Charge after Transfer: PCP Institutional Level of Care: Skilled - Diagnosis (1) Compression fracture of body of thoracic vertebra Priority: Primary Status: Acute (2) Hyponatremia Priority: Secondary Status: Chronic (3) Elevated LFTs Priority: Secondary Status: Chronic (4) Alcohol abuse Priority: Secondary Status: Chronic (5) COPD (chronic obstructive pulmonary disease) Priority: Secondary Status: Acute (6) Periorbital contusion of right eye Priority: Secondary Status: Acute (7) Debility Priority: Secondary Status: Chronic (8) Anemia Priority: Secondary Status: Chronic (9) Pseudothrombocytopenia Priority: Secondary Status: Acute (10) Headache Priority: Secondary Status: Resolved (11) Anxiety Priority: Secondary Status: Acute Prognosis: Fair Aware of Diagnosis: Patient Aware of Prognosis: Patient - Transfer Medications Prescriptions: HYDROcodone/Acet 5/325 mg [[place] 5-325 mg] 1 tab PO Q6HR PRN 2 Days #8 tablet PRN Reason: Moderate Pain Home Medications: Ipratropium/Albuterol Sulfate [Combivent Respimat Inhal [place]] 1 puff IH QID [History] Guaifenesin [Mucinex] 600 mg PO Q12H 09/13/17 [History] Oxygen 2 l NS AD 09/13/17 [History] Omeprazole [PriLOSEC] 40 mg PO DAILY@0630 capsule. 11/27/17 [Rx] Acetaminophen [Tylenol] 325 mg PO Q4HR PRN 12/30/17 [History] Budesonide/Formoterol 160/4.5 [Symbicort 160/4.5] 1 puff IH BID 12/30/17 [ History] Cetirizine HCl [All Day Allergy] 10 mg PO DAILY 12/30/17 [History] Escitalopram [Lexapro] 10 mg PO DAILY 12/30/17 [History] Ibuprofen [Advil] 200 mg PO DAILY PRN 12/30/17 [History] Loperamide [Imodium] 2 mg PO Q4HR 12/30/17 [History] Meloxicam 15 mg PO DAILY 12/30/17 [History] Metoprolol XL (24 HR) Succ [Toprol Xl] 25 mg PO DAILY 12/30/17 [History] Mv,Ca,Iron,Mn/FA/Chol/Boo/PABA [Body, Hair, Skin and Nails Cap] 1 cap PO DAILY 12/30/17 [History] Vitamin B Complex/Vit C/Vit E [Stresstab] 1 cap PO DAILY 12/30/17 [History] hydrOXYzine HCl [Hydroxyzine HCl] 25 mg PO TID 12/30/17 [History] HYDROcodone/Acet 5/325 mg [[place] 5-325 mg] 1 tab PO Q6HR PRN 2 Days #8 tablet [Rx] Ipratropium/Albuterol Neb [Duoneb] 3 ml IH QIDR inhsol 01/08/18 [Rx] Lidocaine Patch [Lidoderm 5% patch] 1 each TP DAILY adh..patch 01/08/18 [Rx] Lidocaine Viscous Oral Soln 15 ml MM BID PRN solution 01/08/18 [Rx] Mupirocin [Bactroban Oint] 1 appl NS BID tube 01/08/18 [Rx] Nicotine Patch [Nicoderm] 14 mg TD DAILY patch.td24 01/08/18 [Rx] Sodium Chloride 1 gm PO TID tablet 01/08/18 [Rx] Allergies/Adverse Reactions: 3 Allergy/AdvReac Type Severity Reaction Status Date / Time No Known Allergies Allergy Verified 12/30/17 16:19 - Respiratory Orders Oxygen / L per min (2 L NC continous) Smoking Cessation: Smoking cessation has been advised. For more information, call the [place] Tobacco Quit Line at 5-892-QOUT-NOW. - Lab Orders Lab Orders: [place] 17 - Advance Directives Code Status: Full Code - Mobility Orders Ambulate - Rehabiliation Orders Rehab Potential: Fair Rehab Orders: Evaluation for Physical Therapy, Evaluation for Occupational Therapy - Treatments Skin tear care topically daily PRN per policy - Diet Orders Regular CERTIFICATION: I certify that the transfer of the above named patient to an Extended Care Facility is necessary for the continuing treatment of the diagnosis listed. The above information is true and accurate reflection of patient's current condition. Confidential - Redisclosure prohibited without a patient's written consent.
[2018-01-08 15:35] VITALS: BP 130/70
== END 2018-01-08 16:45 | DRG 552 ==
LOC: EMEROO 13:34 → 3BNU 13:34
PROVIDERS: ADMIT Nurse Practitioner Family; ATTEND Nurse Practitioner

== ENCOUNTER 2018-03-11 09:08 | Inpatient (IN) ==
[2018-03-11] MEDS ORDERED: Ipratropium/Albuterol Neb 3 ML IH ONE (09:14)
--- NOTE | 2018-03-11 09:17 | Emergency Department Note ---
Disposition Clinical Impression: COPD exacerbation, Alcohol abuse Disposition: Admitted As Inpatient Condition: Fair Referrals: Terrie Joseph CNP [Primary Care Provider] - Forms: ED Satisfaction Letter Time of Disposition: 11:14 General Adult HPI - General Chief complaint: ED Back Pain/Injury Stated complaint: back pain Time Seen by Provider: 03/11/18 09:11 Source: patient, EMS Mode of arrival: EMS Limitations: no limitations Nursing Notes Reviewed: Yes Vital Signs Reviewed: Yes - History of Present Illness HPI Narrative: 57-year-old who comes in complaining of difficulty breathing and severe back pain. Patient states she broke her back about a month ago. Patient was on oxycodone but apparently drinks on a daily basis and her doctor decided not to give her any more pain medicine. She states that she cannot have surgery on her back because of her severe COPD. I did review a CT scan of the abdomen that was done yesterday that shows a severe T12 compression fracture which has progressed. Patient last drank alcohol about 36 hours ago. Pt Subjective Complaint: Shortness of breath Onset (ago): hour(s) Location: back Radiation: non-radiation Pain Severity: severe Quality: aching Consistency: constant Improves with: nothing Worsens with: movement Associated symptoms: Reports: cough - Related Data Home Medications Medication Instructions Recorded Confirmed Ipratropium/Albuterol Sulfate 1 puff IH QID 06/09/16 12/30/17 [Combivent Respimat Inhal [place]] Guaifenesin [Mucinex] 600 mg PO Q12H 09/13/17 12/30/17 Oxygen 2 l NS AD 09/13/17 12/30/17 Acetaminophen [Tylenol] 325 mg PO Q4HR PRN 12/30/17 12/30/17 Budesonide/Formoterol 160/4.5 1 puff IH BID 12/30/17 12/30/17 [Symbicort 160/4.5] Cetirizine HCl [All Day Allergy] 10 mg PO DAILY 12/30/17 12/30/17 Escitalopram [Lexapro] 10 mg PO DAILY 12/30/17 12/30/17 Ibuprofen [Advil] 200 mg PO DAILY PRN 12/30/17 12/30/17 Loperamide [Imodium] 2 mg PO Q4HR 12/30/17 12/30/17 Meloxicam 15 mg PO DAILY 12/30/17 12/30/17 Metoprolol XL (24 HR) Succ [Toprol 25 mg PO DAILY 12/30/17 12/30/17 Xl] Mv,Ca,Iron,Mn/FA/Chol/Boo/PABA 1 cap PO DAILY 12/30/17 12/30/17 [Body, Hair, Skin and Nails Cap] Vitamin B Complex/Vit C/Vit E 1 cap PO DAILY 12/30/17 12/30/17 [Stresstab] hydrOXYzine HCl [Hydroxyzine HCl] 25 mg PO TID 12/30/17 12/30/17 Previous Rx's Medication Instructions Recorded Omeprazole [PriLOSEC] 40 mg PO DAILY@0630 capsule. 11/27/17 HYDROcodone/Acet 5/325 mg [[place] 1 tab PO Q6HR PRN 2 Days #8 tablet 01/08/18 5-325 mg] Ipratropium/Albuterol Neb [Duoneb] 3 ml IH QIDR inhsol 01/08/18 Lidocaine Patch [Lidoderm 5% patch] 1 each TP DAILY adh..patch 01/08/18 Lidocaine Viscous Oral Soln 15 ml MM BID PRN solution 01/08/18 Mupirocin [Bactroban Oint] 1 appl NS BID tube 01/08/18 Nicotine Patch [Nicoderm] 14 mg TD DAILY patch.td24 01/08/18 Sodium Chloride [Sodium Chloride 1 gm PO TID tablet 01/08/18 Tab] Allergies Allergy/AdvReac Type Severity Reaction Status Date / Time No Known Allergies Allergy Verified 12/30/17 16:19 All systems ED: reviewed and negative except as stated. Constitutional: Denies: fever, chills, weakness, weight change Eyes: Denies: eye pain, eye discharge, vision change ENT ED: Denies: ear pain, throat pain, dental pain, hearing loss, epistaxis, congestion, dysphagia Cardiovascular: Denies: chest pain, palpitations, dyspnea on exertion, edema, syncope Respiratory: Reports: cough, dyspnea. Denies: wheezes, hemoptysis, stridor Gastrointestinal: Denies: abdominal pain, nausea, vomiting, diarrhea, constipation, hematemesis, melena, hematochezia Genitourinary: Denies: dysuria, frequency, hematuria, discharge Musculoskeletal: Reports: back pain. Denies: neck pain, arthralgia, myalgia Integumentary: Denies: rash, abrasion, lesions Neurological: Denies: headache, weakness, numbness, paresthesias, confusion, abnormal gait, vertigo Psychiatric: Denies: anxiety, depression, suicidal thoughts, homicidal thoughts , auditory hallucinations, visual hallucinations Endocrine: Denies: fatigue Hematological/Lymphatic: Denies: easy bleeding, easy bruising Allergic/Immunologic: Denies: facial swelling, urticaria Past Medical History - Past Medical History Medical history: Reports: COPD, hypertension, liver disease, TIA Surgical history: Reports: other Psychiatric history: Reports: anxiety, depression - Social History Smoking Status: Current every day smoker Smokeless Tobacco Status: No Alcohol use: Reports: heavy (6-pack/night ) Drug use: Reports: none Physical Exam - General Limitations: no limitations General appearance: alert, in no apparent distress - Head Head exam: atraumatic, normocephalic, normal inspection - Eye Eye exam: Present: normal appearance, PERRL, EOMI - ENT ENT exam: normal exam, normal oropharynx, mucous membranes moist - Neck Neck exam: Present: normal inspection, full ROM, trachea midline - Chest Chest inspection: Present: normal inspection, symmetric chest wall rise - Respiratory Respiratory exam: Present: wheezes, accessory muscle use, prolonged expiratory phase - Cardiovascular Cardiovascular exam: Present: regular rate, normal rhythm, normal heart sounds - Abdominal Exam Abdominal exam: Present: soft, Non-Tender. Absent: tenderness, distention, guarding, rebound, rigidity - Extremities Exam Extremities exam: Present: normal inspection, full ROM. Absent: tenderness, pedal edema - Expanded Lower Extremity Exam Neurovascular/Tendon exam: Absent: motor deficit, sensory deficit, tendon deficit Gait: not tested/not observed - Back Exam Back exam: Present: tenderness - Neurological Exam Neurological exam: Present: alert, oriented X3 - Psychiatric Psychiatric exam: Present: normal affect, normal mood - Skin Skin exam: Present: warm, dry, intact, normal color Course - Reevaluation(s) Reevaluation #1: 57-year-old who has COPD comes in short of breath. She also states that she has anything to drink for about a day and a half and she drinks daily. Time: 11:13 - Consultations Consultation #1: Discussed with , haile. Time: 11:15 Vital Signs Temperature 98.7 F 03/11/18 09:10 Pulse Rate 68 03/11/18 09:10 Respiratory Rate 18 03/11/18 09:10 Blood Pressure 160/122 03/11/18 09:10 O2 Sat by Pulse Oximetry 100 03/11/18 09:10 Temperature 98.7 F 03/11/18 09:10 Pulse Rate 68 03/11/18 09:10 Respiratory Rate 18 03/11/18 09:23 Blood Pressure 160/122 03/11/18 09:10 O2 Sat by Pulse Oximetry 100 03/11/18 09:23 Oxygen Delivery Oxygen Delivery Nasal Cannula Medical Decision Making - Lab Data Lab results reviewed: Yes I reviewed the patient's lab results. Result diagrams: 03/11/18 09:45 03/11/18 09:45 Lab Results 03/11/18 03/11/18 03/11/18 Range/Units 09:45 09:45 09:45 WBC 13.9 H (4.3-11.1) K/mcL RBC 4.11 (3.82-4.97) M/mcL Hgb 12.0 (11.5-15.4) g/dL Hct 36.5 (35.3-44.9) % MCV 88.8 (83.0-100.0) fL MCH 29.2 (28.0-33.3) pg MCHC 32.9 (31.6-35.5) g/dL RDW 16.3 H (11.5-14.5) % Plt Count 292 D (140-400) K/mcL MPV 9.1 L (9.4-12.4) fL Immature Gran % 0.4 (0-4) % Seg Neutrophils % 83.0 % Lymphocytes % 9.1 % Monocytes % 5.7 % Eosinophils % 1.4 % Basophils % 0.4 % Neutrophils # 11.5 H (1.6-8.9) K/mcL Lymphocytes # 1.3 (0.6-4.6) K/mcL Monocytes # 0.8 (0.0-1.3) K/mcL Eosinophils # 0.2 (0.0-0.6) K/mcL Basophils # 0.1 (0.0-0.2) K/mcL Platelet Estimate Normal (Normal) Sodium 130 L (136-145) mEq/L Potassium 3.4 L (3.5-5.1) mEq/L Chloride 96 L (98-107) mEq/L Carbon Dioxide 27 (23-29) mEq/L BUN 2 L (6-20) mg/dL Creatinine 0.39 L (0.60-1.20) mg/dL Est GFR ( Amer) > 60 (> 60) Est GFR (Non-Af Amer) > 60 (> 60) BUN/Creatinine Ratio 5 L (6-26) Glucose 120 H (70-105) mg/dL Calculated Osmolality 267 L (280-300) Lactic Acid 1.7 (0.5-2.2) mmol/L Calcium 7.9 L (8.6-10.3) mg/dL Troponin I < 0.03 (< 0.04) ng/mL B-Natriuretic Peptide (Less than 100) pg/mL 03/11/18 Range/Units 09:45 WBC (4.3-11.1) K/mcL RBC (3.82-4.97) M/mcL Hgb (11.5-15.4) g/dL Hct (35.3-44.9) % MCV (83.0-100.0) fL MCH (28.0-33.3) pg MCHC (31.6-35.5) g/dL RDW (11.5-14.5) % Plt Count (140-400) K/mcL MPV (9.4-12.4) fL Immature Gran % (0-4) % Seg Neutrophils % % Lymphocytes % % Monocytes % % Eosinophils % % Basophils % % Neutrophils # (1.6-8.9) K/mcL Lymphocytes # (0.6-4.6) K/mcL Monocytes # (0.0-1.3) K/mcL Eosinophils # (0.0-0.6) K/mcL Basophils # (0.0-0.2) K/mcL Platelet Estimate (Normal) Sodium (136-145) mEq/L Potassium (3.5-5.1) mEq/L Chloride (98-107) mEq/L Carbon Dioxide (23-29) mEq/L BUN (6-20) mg/dL Creatinine (0.60-1.20) mg/dL Est GFR ( Amer) (> 60) Est GFR (Non-Af Amer) (> 60) BUN/Creatinine Ratio (6-26) Glucose (70-105) mg/dL Calculated Osmolality (280-300) Lactic Acid (0.5-2.2) mmol/L Calcium (8.6-10.3) mg/dL Troponin I (< 0.04) ng/mL B-Natriuretic Peptide 75 (Less than 100) pg/mL - Radiology Data Radiology results reviewed: Yes I reviewed the patient's radiology results. Chest X-Ray 03/11/18 09:14 IMPRESSION: No acute cardiopulmonary findings. D/ / Keke Daniels MD / Keke Daniels MD Interpreting Provider: Keke Daniels MD - EKG Data EKG #1 EKG attestation: Yes I reviewed and interpreted this EKG. EKG shows normal: sinus rhythm Rate: normal Rhythm: NSR [place]/QRS: normal Interpretation: no acute changes
[2018-03-11] MEDS ORDERED: Thiamine (B-1) 100 MG, Folic Acid 1 MG, MVI, adult with vitamin K 10 ML in 0.9 % Sodi... IVPB STA (09:47)
[2018-03-11] MEDS ORDERED: *HR* LORazepam 2 MG/ML VIAL IVP ONE (09:48)
[2018-03-11 09:56] LABS: Basophils # 0.1 K/mcL (0.0-0.2); Basophils % 0.4 %; Eosinophils # 0.2 K/mcL (0.0-0.6); Eosinophils % 1.4 %; Hematocrit 36.5 % (35.3-44.9); Immature Granulocytes % 0.4 % (0-4); Lymphocytes # 1.3 K/mcL (0.6-4.6); Lymphocytes % 9.1 %; Mean Corpuscular HGB Conc 32.9 g/dL (31.6-35.5); Mean Corpuscular Hemoglobin 29.2 pg (28.0-33.3); Mean Corpuscular Volume 88.8 fL (83.0-100.0); Mean Platelet Volume 9.1 fL (9.4-12.4); Monocytes # 0.8 K/mcL (0.0-1.3); Monocytes % 5.7 %; Neutrophils # 11.5 K/mcL (1.6-8.9); Platelet Count 292 K/mcL (140-400); Red Blood Count 4.11 M/mcL (3.82-4.97); Red Cell Distribution Width 16.3 % (11.5-14.5)
[2018-03-11 10:00] LABS: Platelet Estimate Normal (Normal)
[2018-03-11 10:17] LABS: BUN/Creatinine Ratio 5 (6-26); Blood Urea Nitrogen 2 mg/dL (6-20); Calcium 7.9 mg/dL (8.6-10.3); Carbon Dioxide 27 mEq/L (23-29); Chloride 96 mEq/L (98-107); Glucose 120 mg/dL (70-105); Osmolality,Calculated 267 (280-300); Potassium 3.4 mEq/L (3.5-5.1); Sodium 130 mEq/L (136-145); Troponin I < 0.03 ng/mL (< 0.04); eGFR For African Americans > 60 (> 60); eGFR For Non-African Americans > 60 (> 60)
[2018-03-11] MEDS ORDERED: methylPREDNISolone 125 MG/2 ML VIAL IVP ONE (11:07)
[2018-03-11] MEDS ORDERED: Naloxone 0.4 MG/ML INJ IVP PRN (11:43)
[2018-03-11] MEDS ORDERED: *HR* Promethazine 25 MG/ML VIAL IVP PRN (12:00)
[2018-03-11] MEDS ORDERED: NON-FORMULARY MEDICATION 1 EACH EACH (Oxygen [Oxygen] 2 L) NS SCH (12:00)
[2018-03-11] MEDS ORDERED: *HR* LORazepam 2 MG/ML VIAL IVP PRN ×2 (12:00)
[2018-03-11] MEDS ORDERED: Ipratropium Neb 0.5 MG NEBULIZER IH SCH (12:00)
[2018-03-11] MEDS ORDERED: Albuterol 2.5 MG/3 ML NEBULIZER IH SCH (12:00)
--- NOTE | 2018-03-11 12:18 | Internal Med History&Physical ---
<Lexi Ribeiro - Last Filed: 03/11/18 12:47> Date of Encounter: 03/11/18 Time of Encounter: 12:06 Internal Medicine - H&P: HPI Chief complaint: Dyspnea and Back pain Admitted From: Home Plans for Post Hospital Care: Home History of present illness: Ms. Rodriguez is a 57 year old female with history of hepatic steatosis, malnutrition, tobacco abuse, HTN, and COPD. The patient present today with dyspnea that began nearly 1 week ago, she indicated that she has been using her inhalers and wears her prescribed oxygen 2L/NC, 24 hours/day. The patient indicated that she has also had back pain that has persisted. Ct of abd/pelvis on 03/10/2018, showed a severe T-12 compression fracture that is unchanged. Will start the patient on prn oral oxycodone for back pain. She indicated that this pain was severe last night and she couldn't sleep. The patient indicates that she drinks alcohol daily, but has not had a drink in at least 1.5 days. Will start ciwa scale and give ativan as needed. Apparently she reported drk stools to the ED staff and will get stool for occult blood, hgb is 12.0. Will get h&h every 6 h x3. Wbc is 13.9, Past Med Surg Social Fam HX - Past Medical History Medical history: COPD, hypertension, liver disease, TIA Additional medical history: depression, back pain, chest pain, headache Psychiatric history: anxiety, depression - Past Surgical History Surgical History: other Additional surgical history: D&C - Social History Smoking Status: Current every day smoker Smokeless Tobacco Status: No Alcohol use: heavy (6-pack/night ) Drug use: none - Family History Brother Adopted: No Living Status: Hx Family Cancer: Yes (Lung) Internal Medicine - H&P: Meds Ipratropium/Albuterol Sulfate [Combivent Respimat Inhal [place]] 1 puff IH QID [History] Guaifenesin [Mucinex] 600 mg PO Q12H 09/13/17 [History] Oxygen 2 l NS AD 09/13/17 [History] Omeprazole [PriLOSEC] 40 mg PO DAILY@0630 capsule. 11/27/17 [Rx] Budesonide/Formoterol 160/4.5 [Symbicort 160/4.5] 1 puff IH BID 12/30/17 [ History] Cetirizine HCl [All Day Allergy] 10 mg PO DAILY 12/30/17 [History] Escitalopram [Lexapro] 10 mg PO DAILY 12/30/17 [History] Meloxicam 15 mg PO DAILY 12/30/17 [History] Metoprolol XL (24 HR) Succ [Toprol Xl] 25 mg PO DAILY 12/30/17 [History] Vitamin B Complex/Vit C/Vit E [Stresstab] 1 cap PO DAILY 12/30/17 [History] hydrOXYzine HCl [Hydroxyzine HCl] 25 mg PO TID 12/30/17 [History] Calcitonin,[place],Synthetic [Calcitonin-[place]] 1 spr NS DAILY 03/11/18 [History ] Calcium Carb, Citrate/Vit D3 [Calcium + D3 ER Tablet] 1 tab PO DAILY 03/11/18 [ History] Ondansetron ODT [Zofran ODT] 4 mg PO TID PRN 03/11/18 [History] 3 Allergy/AdvReac Type Severity Reaction Status Date / Time No Known Allergies Allergy Verified 03/11/18 11:17 All Systems PM: A 10-system review of systems was performed and is negative for pertinent findings except as documented above in the HPI. - Constitutional Constitutional: no chills, no fever(s), no night sweats - EENT Eyes: no change in vision, no discharge, no pain, no photophobia Ears: no ear discharge, no ear pain, no tinnitus Nose, mouth and throat: no dysphagia, no nasal discharge, no neck pain, no sore throat - Cardiovascular Cardiovascular ROS IM: no chest pain, no diaphoresis, no dyspnea, no lightheadedness, no palpitations, no syncope - Respiratory Respiratory: no cough, no dyspnea, no wheezing, no excessive phlegm production - Gastrointestinal Gastrointestinal: melena (patient reports ), no abdominal pain, no diarrhea, no hematemesis, no hematochezia, no nausea, no vomiting - Genitourinary Genitourinary: no change in urinary stream, no dysuria, no flank pain, no hematuria - Musculoskeletal Musculoskeletal ROS IM: no numbness, no tingling - Integumentary Integumentary IM: no rash, no unusual bruising - Neurological Neurological ROS: no confusion, no convulsions, no focal weakness, no numbness, no tingling, no tremor(s) - Hematologic/Lymphatic Hematologic/Lymphatic: no easy bruising - Constitutional Vitals: Temp Pulse Resp BP Pulse Ox 98.7 F 92 18 136/93 99 03/11/18 09:10 03/11/18 11:15 03/11/18 11:15 03/11/18 11:15 03/11/18 11:15 General appearance: Present: A&O X 3, no acute distress, answers questions appropriately - Head Head exam: Present: atraumatic, normocephalic - Eye Eye exam: Present: PERRL, conjuntiva pink, sclera anicteric Pupils: Present: PERRL - Neck Neck exam general surgery: Present: supple, trachea midline. Absent: lymphadenopathy - Respiratory Respiratory exam: Present: decreased breath sounds, rhonchi. Absent: accessory muscle use, rales, wheezes - Cardiovascular Cardiovascular exam: Present: RRR, +S1, +S2. Absent: diastolic murmur, gallop, rubs, systolic murmur - GI/Abdominal GI/Abdominal exam: Present: normal bowel sounds, soft, no peritoneal signs. Absent: distended, tenderness - Extremities Exam Extremities exam: Present: warm, radial pulses palpable and symmetrical. Absent : calf tenderness, cyanotic, pedal edema - Neurological Exam Neurological exam: Present: CN II-XII intact, oriented X3, no focal deficits. Absent: pronater drift, facial droop, speech deficit - Skin Skin exam: Present: dry, intact Internal Med - H&P Results - Labs CBC & Chem 7: 03/11/18 09:45 03/11/18 09:45 Labs: Short CBC 03/11/18 Range/Units 09:45 WBC 13.9 H (4.3-11.1) K/mcL Hgb 12.0 (11.5-15.4) g/dL Hct 36.5 (35.3-44.9) % Plt Count 292 D (140-400) K/mcL Neutrophils # 11.5 H (1.6-8.9) K/mcL BMP 03/11/18 09:45 Sodium 130 L Potassium 3.4 L Chloride 96 L Carbon Dioxide 27 BUN 2 L Creatinine 0.39 L Glucose 120 H Calcium 7.9 L Cardiac Enzymes 03/11/18 Range/Units 09:45 Troponin I < 0.03 (< 0.04) ng/mL - Impressions ITS Impressions Chest X-Ray 03/11/18 09:14 IMPRESSION: No acute cardiopulmonary findings. D/ / Keke Daniels MD / Keke Daniels MD Interpreting Provider: Keke Daniels MD - Assessment and plan (1) COPD exacerbation Current Visit: Yes Status: Acute Assessment and plan: Ct of abd/pelvis on 03/10/2018, which showed bronchiolitis. Continue albuterol and atrovent q4h Oxygen 2L/nc Incentive spirometry (2) Alcohol dependence Current Visit: Yes Status: Acute Assessment and plan: Patient will likely have alcohol withdrawal as she stated her last drink was 1.5 days ago. The patient will be started on a CIWA scale and give ativan prn Qualifiers: Substance use status: in withdrawal Complication of substance-induced condition: with unspecified complication Qualified Code(s): F10.239 - Alcohol dependence with withdrawal, unspecified (3) Compression fracture of body of thoracic vertebra Current Visit: No Status: Acute Assessment and plan: Severe T-12 compression fracture, that is unchanged. Will start the patient on oxycodone po prn. (4) Hypertension Current Visit: No Status: Chronic Assessment and plan: Bp is uncontrolled, Continue home meds-Metoprolol Qualifiers: Hypertension type: unspecified Qualified Code(s): I10 - Essential (primary ) hypertension (5) GI bleed Current Visit: Yes Status: Suspected Assessment and plan: The patient reported that she was having dark stools at home h&h q6h x3 Get occult stool x1 Qualifiers: GI bleed type/associated pathology: unspecified gastrointestinal hemorrhage type Qualified Code(s): K92.2 - Gastrointestinal hemorrhage, unspecified - Time Spent With Patient Total time spent is greater than 50% in coordination of care (as documented) at patient's floor/unit and/or counseling patient: <[email or web address] - Last Filed: 03/11/18 13:29> Date of Encounter: 03/11/18 Time of Encounter: 13:00 Internal Medicine - H&P: HPI History of present illness: Ms. Rodriguez is a 57 year old female All Systems PM: A 10-system review of systems was performed and is negative for pertinent findings except as documented above in the HPI. - Constitutional Vitals: Temp Pulse Resp BP Pulse Ox 98.7 F 92 18 136/93 99 03/11/18 09:10 03/11/18 11:15 03/11/18 11:15 03/11/18 11:15 03/11/18 11:15 Internal Med - H&P Results - Labs CBC & Chem 7: 03/11/18 09:45 03/11/18 09:45 - Attending Attestation I examined this patient and my medical decision-making was reviewed with the Nurse Practitioner, Lexi Ribeiro. I agree with the documented findings, disposition and treatment plan as described with any changes as documented below. 57-year-old female with history of COPD, alcohol abuse presented to the ER with complaints of shortness of breath. She is currently very somnolent but easily wakes up. She reports feeling out of breath for several days now. Also has been having cough. No fever. Initially in the ER, she had bilateral wheezing. She received bronchodilators and steroids with improvement in her symptoms. She also reports dark colored stools recently. No dizziness or lightheadedness at this time. She has been drinking alcohol excessively but has not drank anything for the past 2-3 days. On examination, patient is awake and alert. Minimal bilateral wheezing at this time. The patient has extensive ecchymosis all over. Heart sounds are normal. Labs show a WBC of 13.9, platelets of 292. Sodium 130, potassium 3.4. Chest x-ray shows no acute findings but the patient did have a CT scan of the abdomen and pelvis yesterday which showed basilar bronchiolitis which appears to be chronic. COPD exacerbation: Continue bronchodilators, steroids. O2 supplementation. Alcohol dependence: At risk for alcohol withdrawal. We will place on thiamine, folic acid and CIWA protocol. GI bleed: Patient reporting melanotic stools. We will check stool for occult blood. Check PT/INR. Place on Protonix. Monitor hemoglobin levels. Consider GI consult once respiratory symptoms improved. - Assessment and plan (1) COPD exacerbation Current Visit: Yes Status: Acute (2) Alcohol dependence Current Visit: Yes Status: Acute Qualifiers: Substance use status: in withdrawal Complication of substance-induced condition: with unspecified complication Qualified Code(s): F10.239 - Alcohol dependence with withdrawal, unspecified (3) Compression fracture of body of thoracic vertebra Current Visit: No Status: Acute (4) GI bleed Current Visit: Yes Status: Suspected Qualifiers: GI bleed type/associated pathology: unspecified gastrointestinal hemorrhage type Qualified Code(s): K92.2 - Gastrointestinal hemorrhage, unspecified (5) Hypertension Current Visit: No Status: Chronic Qualifiers: Hypertension type: unspecified Qualified Code(s): I10 - Essential (primary ) hypertension - Time Spent With Patient Total time spent is greater than 50% in coordination of care (as documented) at patient's floor/unit and/or counseling patient:
[2018-03-11] MEDS: Ipratropium/Albuterol Neb 3 ML IH SCH ×4 (14:04→23:23)
[2018-03-11] MEDS: Pantoprazole 40 MG VIAL IVP SCH (14:33)
[2018-03-11] MEDS: *HR* LORazepam 2 MG/ML VIAL IVP PRN (14:39)
[2018-03-11 15:10] LABS: Prothrombin Time 11.2 Seconds (9.4-12.1)
[2018-03-11] MEDS: Budesonide/Formoterol 160/4.5 MDI IH SCH (19:45)
[2018-03-11 19:59] LABS: Hematocrit 36.2 % (35.3-44.9); Hemoglobin 11.7 g/dL (11.5-15.4)
[2018-03-11] MEDS: hydrOXYzine pamoate 25 MG CAPSULE PO PRN (22:19)
[2018-03-12] MEDS: Acetaminophen 325 MG TABLET PO PRN (00:51)
[2018-03-12] MEDS: Ipratropium/Albuterol Neb 3 ML IH SCH ×6 (03:27→23:17)
[2018-03-12 04:26] LABS: BUN/Creatinine Ratio 13 (6-26); Blood Urea Nitrogen 6 mg/dL (6-20); Calcium 7.7 mg/dL (8.6-10.3); Carbon Dioxide 26 mEq/L (23-29); Chloride 93 mEq/L (98-107); Glucose 123 mg/dL (70-105); Osmolality,Calculated 261 (280-300); Potassium 4.3 mEq/L (3.5-5.1); Sodium 126 mEq/L (136-145); eGFR For African Americans > 60 (> 60); eGFR For Non-African Americans > 60 (> 60)
[2018-03-12 04:51] LABS: Basophils % 0.2 %; Eosinophils % 0.1 %; Hematocrit 31.9 % (35.3-44.9); Hemoglobin 10.5 g/dL (11.5-15.4); Immature Granulocytes % 0.5 % (0-4); Lymphocytes # 0.9 K/mcL (0.6-4.6); Mean Corpuscular HGB Conc 32.9 g/dL (31.6-35.5); Mean Corpuscular Volume 88.1 fL (83.0-100.0); Mean Platelet Volume 9.6 fL (9.4-12.4); Monocytes # 0.8 K/mcL (0.0-1.3); Monocytes % 6.2 %; Neutrophils # 11.3 K/mcL (1.6-8.9); Platelet Count 223 K/mcL (140-400); Red Blood Count 3.62 M/mcL (3.82-4.97)
[2018-03-12] MEDS ORDERED: *HR* HYDROcodone/Acet 5/325 mg TABLET PO ONE (04:56)
[2018-03-12 07:23] LABS: Hemoglobin 10.8 g/dL (11.5-15.4)
[2018-03-12] MEDS: Budesonide/Formoterol 160/4.5 MDI IH SCH ×2 (07:54→19:41)
[2018-03-12] MEDS: Vitamin B Complex/Vit C/Vit E 1 EACH TABLET PO SCH (08:02)
[2018-03-12] MEDS: Metoprolol XL (24 HR) Succ 25 MG TAB.ER.24H PO SCH (08:02)
[2018-03-12] MEDS: Pantoprazole 40 MG VIAL IVP SCH (08:02)
[2018-03-12] MEDS: Cholecalciferol (D-3) 1,000 UNIT TABLET PO SCH (08:02)
[2018-03-12] MEDS: Loratadine 10 MG TABLET PO SCH (08:02)
[2018-03-12] MEDS: Ondansetron ODT 4 MG TAB.RAPDIS PO PRN (08:10)
--- NOTE | 2018-03-12 09:57 | Internal Med Progress Note ---
Date of Encounter: 03/12/18 Time of Encounter: 11:10 - Assessment and plan (1) COPD exacerbation Current Visit: Yes Status: Acute Assessment and plan: Increasing dyspnea for approximately 1 week, patient reporting the need to increase the use of her inhalers and up titration of oxygen History of chronic respiratory failure with hypoxia requiring chronic 2 L nasal cannula, was requiring 4 L nasal cannula to maintain oxygen saturations, now on 2 L this morning with SPO2 97% Patient reports that she is compliant with her medication regimen for COPD CXR obtained and found to be negative for acute cardiac pulmonary process CT of abdomen/pelvis on 03/10/18 shows bronchial colitis Sputum culture obtained and pending, many gram-negative rods found, pending final results Lungs are clear/diminished to auscultation with prolonged expiratory phase per my assessment this morning; does not appear to be grossly short of breath Continue albuterol and Atrovent every 4 hours, Continue incentive spirometry use (2) Compression fracture of body of thoracic vertebra Current Visit: Yes Status: Acute Assessment and plan: Severe T12 compression fracture, unchanged This occurred from a prior fall a few weeks ago Continue oxycodone when necessary (3) Alcohol dependence Current Visit: Yes Status: Acute Assessment and plan: History of alcohol dependence Patient unsure of exactly how much she ingests reports that she drinks on a regular basis Last drink was approximately 1.5 days ago High risk for alcohol withdrawal Continue CIWA protocol and Ativan when necessary Per my assessment today the patient does appear agitated and anxious Also, she is reporting nausea Denies any suicidal/homicidal ideations or plan, denies auditory/visual hallucinations Continue B vitamin complex and thiamine daily Qualifiers: Substance use status: in withdrawal Complication of substance-induced condition: with unspecified complication Qualified Code(s): F10.239 - Alcohol dependence with withdrawal, unspecified (4) Alcohol withdrawal Current Visit: Yes Status: Acute Assessment and plan: Appears to be in the early stages of alcohol withdrawal, continue protocol as stated above See above Qualifiers: Complication of substance-induced condition: with unspecified complication Qualified Code(s): F10.239 - Alcohol dependence with withdrawal, unspecified (5) Chronic respiratory failure with hypoxia Current Visit: Yes Status: Acute Assessment and plan: See above in the setting of acute exacerbation of COPD (6) Hypertension Current Visit: Yes Status: Chronic Assessment and plan: History of HTN, BP elevated today 157/93 continue home anti-HTN medications and monitor closely adjust medications as necessary Qualifiers: Hypertension type: unspecified Qualified Code(s): I10 - Essential (primary ) hypertension (7) GI bleed Current Visit: Yes Status: Suspected Assessment and plan: Patient reporting black tarry stools times one bowel movement No prior history of GI bleeding Consult to gastroenterology for further recommendations and evaluation, appreciate recommendations Obtain fecal occult blood Qualifiers: GI bleed type/associated pathology: unspecified gastrointestinal hemorrhage type Qualified Code(s): K92.2 - Gastrointestinal hemorrhage, unspecified (8) Hyponatremia Current Visit: Yes Status: Acute Assessment and plan: Hyponatremia in the setting of severe alcohol abuse and malnutrition Normal saline at 75 mL per hour 1 L, monitor labs daily, patient currently asymptomatic (9) Malnutrition Current Visit: Yes Status: Acute Assessment and plan: Malnutrition most likely secondary to chronic severe alcohol abuse Discussed alcohol cessation with patient Qualifiers: Malnutrition type: unspecified type Qualified Code(s): E46 - Unspecified protein-calorie malnutrition (10) Anemia Current Visit: Yes Status: Acute Assessment and plan: Patient has history of chronic anemia Possibly due to malnutrition however, is having black tarry stools Obtain B12, folate and iron profile Hemoglobin and hematocrit stable at this time, no active bleeding noted Continue closely monitor H&H Hemoglobin 03/12/1810.8 Qualifiers: Anemia type: unspecified type Qualified Code(s): D64.9 - Anemia, unspecified (11) DVT prophylaxis Current Visit: Yes Status: Acute Assessment and plan: Foot pumps, increase mobilization - Time Spent With Patient Total time spent is greater than 50% in coordination of care (as documented) at patient's floor/unit and/or counseling patient: 25 - 35 minutes - Subjective Interval history: Seen and examined at bedside today. Patient reporting agitation, anxiety, pain and mid back in the setting of known T12 compression fracture, nausea and black bowel movements. Denies any suicidal/homicidal ideation or plan, denies any auditory or visual hallucinations - Constitutional Vitals: Temp Pulse Resp BP Pulse Ox 99.3 F 117 18 158/94 98 03/12/18 06:31 03/12/18 06:31 03/12/18 06:31 03/12/18 06:31 03/12/18 06:31 General appearance: Present: A&O X 3, no acute distress, answers questions appropriately - Head Head exam: Present: atraumatic, normocephalic - Eye Eye exam: Present: PERRL, conjuntiva pink, sclera anicteric Pupils: Present: PERRL - Neck Neck exam general surgery: Present: supple, trachea midline. Absent: lymphadenopathy - Respiratory Respiratory exam: Present: decreased breath sounds, CTAB, prolonged expiratory phase. Absent: accessory muscle use, rales, respiratory distress, rhonchi, wheezes, tachypnea - Cardiovascular Cardiovascular exam: Present: RRR, +S1, +S2. Absent: diastolic murmur, gallop, rubs, systolic murmur - GI/Abdominal GI/Abdominal exam: Present: normal bowel sounds, soft, no peritoneal signs. Absent: distended, firm, guarding, tenderness - Extremities Exam Extremities exam: Present: warm, radial pulses palpable and symmetrical. Absent : calf tenderness, cyanotic, pedal edema - Back Exam Back exam: Present: full ROM, vertebral tenderness - Neurological Exam Neurological exam: Present: alert, CN II-XII intact, oriented X3, no focal deficits. Absent: pronater drift, facial droop, speech deficit - Psychiatric Psychiatric exam: Present: agitated, anxious. Absent: depressed, flat affect, homicidal ideation, manic, normal affect, normal mood, suicidal ideation - Skin Skin exam: Present: dry, intact Internal Medicine: Result - Labs CBC & Chem 7: 03/12/18 07:15 03/12/18 03:50 Labs: Short CBC 03/12/18 03/12/18 Range/Units 04:40 07:15 WBC 13.1 H (4.3-11.1) K/mcL Hgb 10.5 L 10.8 L (11.5-15.4) g/dL Hct 31.9 L 33.0 L (35.3-44.9) % Plt Count 223 (140-400) K/mcL Neutrophils # 11.3 H (1.6-8.9) K/mcL BMP 03/12/18 03:50 Sodium 126 L Potassium 4.3 D Chloride 93 L Carbon Dioxide 26 BUN 6 Creatinine 0.48 L Glucose 123 H Calcium 7.7 L - ABG Interpretation ABG results: PT/INR, D-dimer PT 11.2 Seconds (9.4-12.1) 03/11/18 13:08 - VTE Documentation of Mechanical Device: Venous foot pump, device Consult Discharge Plan - Plan Referrals: Terrie Joseph CNP [Primary Care Provider] -
[2018-03-12] MEDS ORDERED: 0.9 % Sodium Chloride 1,000 ML IVC SCH (11:30)
[2018-03-12] MEDS ORDERED: Ketorolac 30 MG/ML VIAL IVP ONE (12:00)
[2018-03-12 13:09] LABS: % Iron Saturation 8 % (15-50); Iron 26 mcg/dL (50-170); Transferrin 239 mg/dL (203-362)
[2018-03-12 13:36] LABS: Vitamin B12 347 pg/mL (250-1100)
[2018-03-12 13:44] LABS: Folate > 22.3 ng/mL (3.0-16.0)
[2018-03-13] MEDS: Ipratropium/Albuterol Neb 3 ML IH SCH ×6 (03:37→23:23)
[2018-03-13 05:22] LABS: Hematocrit 34.4 % (35.3-44.9); Mean Corpuscular Volume 88.2 fL (83.0-100.0)
[2018-03-13 05:23] LABS: Basophils # 0.1 K/mcL (0.0-0.2); Basophils % 0.4 %; Eosinophils # 0.4 K/mcL (0.0-0.6); Eosinophils % 2.6 %; Hemoglobin 11.2 g/dL (11.5-15.4); Immature Granulocytes % 0.4 % (0-4); Immature Platelets 26.1 % (1.1-6.1); Lymphocytes # 1.6 K/mcL (0.6-4.6); Lymphocytes % 10.7 %; Mean Corpuscular HGB Conc 32.6 g/dL (31.6-35.5); Mean Corpuscular Hemoglobin 28.7 pg (28.0-33.3); Monocytes # 0.7 K/mcL (0.0-1.3); Monocytes % 4.8 %; Neutrophils # 12.3 K/mcL (1.6-8.9); Segmented Neutrophils % 81.1 %
[2018-03-13 05:37] LABS: BUN/Creatinine Ratio 10 (6-26); Blood Urea Nitrogen 4 mg/dL (6-20); Calcium 8.1 mg/dL (8.6-10.3); Carbon Dioxide 29 mEq/L (23-29); Chloride 94 mEq/L (98-107); Glucose 88 mg/dL (70-105); Osmolality,Calculated 262 (280-300); Potassium 3.9 mEq/L (3.5-5.1); Sodium 128 mEq/L (136-145); eGFR For African Americans > 60 (> 60); eGFR For Non-African Americans > 60 (> 60)
[2018-03-13 05:56] LABS: Mean Platelet Volume 8.5 fL (9.4-12.4)
[2018-03-13] MEDS: Ketorolac 15 MG/ML VIAL IVP PRN ×3 (07:29→20:03)
[2018-03-13] MEDS: Vitamin B Complex/Vit C/Vit E 1 EACH TABLET PO SCH (07:30)
[2018-03-13] MEDS: Loratadine 10 MG TABLET PO SCH (07:30)
[2018-03-13] MEDS: Pantoprazole 40 MG VIAL IVP SCH (07:30)
[2018-03-13] MEDS: Metoprolol XL (24 HR) Succ 25 MG TAB.ER.24H PO SCH (07:30)
[2018-03-13] MEDS: Cholecalciferol (D-3) 1,000 UNIT TABLET PO SCH (07:30)
[2018-03-13] MEDS: Budesonide/Formoterol 160/4.5 MDI IH SCH ×2 (08:39→19:45)
--- NOTE | 2018-03-13 10:01 | Internal Med Progress Note ---
Date of Encounter: 03/13/18 Time of Encounter: 09:59 - Assessment and plan (1) COPD exacerbation Current Visit: Yes Status: Acute Assessment and plan: Increased use of inhaler and up titration of oxygen prior to admission due to progressive dyspnea 1 week History of chronic respiratory failure with hypoxia requiring chronic 2 L nasal cannula, was requiring 4 L nasal cannula to maintain oxygen saturations, now on 2 L this morning with SPO2 99% CXR obtained and found to be negative for acute cardiac pulmonary process CT of abdomen/pelvis on 03/10/18 shows bronchiolitis Sputum culture obtained-growing Pseudomonas blood cultures NGTD Start Levaquin 750 mg daily now Lungs are clear/diminished to auscultation with prolonged expiratory phase per my assessment this morning; does not appear to be grossly short of breath and reports respiratory status is improving compared to yesterday Continue albuterol and Atrovent every 4 hours, Continue incentive spirometry use Monitor labs daily (2) Compression fracture of body of thoracic vertebra Current Visit: Yes Status: Acute Assessment and plan: Severe T12 compression fracture, unchanged This occurred from a prior fall a few weeks ago Continue hydrocodone prn (3) Alcohol dependence Current Visit: Yes Status: Acute Assessment and plan: History of alcohol dependence Patient unsure of exactly how much she ingests reports that she drinks on a regular basis Last drink was approximately 2.5 days ago High risk for alcohol withdrawal and appears to be having early withdrawal symptoms Continue CIWA protocol and Ativan when necessary Per my assessment today the patient does appear agitated and anxious, mild extremity tremors Denies any suicidal/homicidal ideations or plan, denies auditory/visual hallucinations Continue B vitamin complex and thiamine daily Qualifiers: Substance use status: in withdrawal Complication of substance-induced condition: with unspecified complication Qualified Code(s): F10.239 - Alcohol dependence with withdrawal, unspecified (4) Alcohol withdrawal Current Visit: Yes Status: Acute Assessment and plan: continues to have withdrawal Reporting nausea, diarrhea, agitation and anxiety Extremities are mildly tremulous Denies any suicidal/homicidal ideation, denies any auditory/visual hallucinations continue protocol as stated above See above Qualifiers: Complication of substance-induced condition: with unspecified complication Qualified Code(s): F10.239 - Alcohol dependence with withdrawal, unspecified (5) Chronic respiratory failure with hypoxia Current Visit: Yes Status: Acute Assessment and plan: See above in the setting of acute exacerbation of COPD (6) Hypertension Current Visit: Yes Status: Chronic Assessment and plan: History of HTN, BP elevated today, add norvasc 5mg daily and cont anti-HTN medications and monitor closely adjust medications as necessary Qualifiers: Hypertension type: unspecified Qualified Code(s): I10 - Essential (primary ) hypertension (7) GI bleed Current Visit: Yes Status: Suspected Assessment and plan: Patient reporting black tarry stools times one bowel movement No prior history of GI bleeding Consult to gastroenterology for further recommendations and evaluation, appreciate recommendations Obtain fecal occult blood-remains uncollected Denying any additional black tarry stools today Qualifiers: GI bleed type/associated pathology: unspecified gastrointestinal hemorrhage type Qualified Code(s): K92.2 - Gastrointestinal hemorrhage, unspecified (8) Hyponatremia Current Visit: Yes Status: Acute Assessment and plan: Hypotonic Hyponatremia in the setting of severe alcohol abuse and hypovolemia 0.9% normal saline 75 mL per hour 2 L, monitor labs daily, patient currently asymptomatic (9) Malnutrition Current Visit: Yes Status: Acute Assessment and plan: Malnutrition 2/2 to chronic severe alcohol abuse Discussed alcohol cessation with patient Qualifiers: Malnutrition type: unspecified type Qualified Code(s): E46 - Unspecified protein-calorie malnutrition (10) Anemia Current Visit: Yes Status: Acute Assessment and plan: Patient has history of chronic anemia Iron deficiency 26 per yesterdays labs likely due to malnutrition with severe alcohol abuse However, patient also reporting episodes of black tarry stools Fecal occult blood ordered but uncollected Hemoglobin and hematocrit stable, denies any additional black tarry stools today Continue closely monitor H&H Qualifiers: Anemia type: unspecified type Qualified Code(s): D64.9 - Anemia, unspecified (11) DVT prophylaxis Current Visit: Yes Status: Acute Assessment and plan: Cont Foot pumps, increase mobilization - Time Spent With Patient Total time spent is greater than 50% in coordination of care (as documented) at patient's floor/unit and/or counseling patient: 25 - 35 minutes - Subjective Interval history: Seen and examined at bedside today. Patient reporting agitation, anxiety, pain and mid back in the setting of known T12 compression fracture, nausea and black bowel movements. Denies any suicidal/homicidal ideation or plan, denies any auditory or visual hallucinations - Constitutional Vitals: Temp Pulse Resp BP Pulse Ox 98.5 F 99 16 159/114 99 03/13/18 07:11 03/13/18 07:11 03/13/18 08:39 03/13/18 07:11 03/13/18 08:39 General appearance: Present: A&O X 3, no acute distress, answers questions appropriately Internal Medicine: Result - Labs CBC & Chem 7: 03/13/18 04:43 03/13/18 04:43 Labs: Short CBC 03/13/18 Range/Units 04:43 WBC 15.1 H (4.3-11.1) K/mcL Hgb 11.2 L (11.5-15.4) g/dL Hct 34.4 L (35.3-44.9) % Plt Count TNP Neutrophils # 12.3 H (1.6-8.9) K/mcL BMP 03/13/18 04:43 Sodium 128 L Potassium 3.9 Chloride 94 L Carbon Dioxide 29 BUN 4 L Creatinine 0.40 L Glucose 88 Calcium 8.1 L - ABG Interpretation ABG results: PT/INR, D-dimer PT 11.2 Seconds (9.4-12.1) 03/11/18 13:08 - VTE Documentation of Mechanical Device: Venous foot pump, device Consult Discharge Plan - Plan Referrals: Terrie Joseph, [employer] [Primary Care Provider] - (Your appointment has been webrequested. Our offices will call you with an appointment; if you do not hear from us, please fill free to call your primary care physicain and make an appointment.)
[2018-03-13] MEDS: Levofloxacin 750 MG/150 ML 750 MG/150 ML BAG IVPB SCH (11:26)
[2018-03-13] MEDS: Ondansetron ODT 4 MG TAB.RAPDIS PO PRN (11:26)
[2018-03-13] MEDS: 0.9 % Sodium Chloride 1,000 ML IVC SCH (11:26)
[2018-03-13] MEDS: amLODIPine 5 MG TABLET PO SCH (11:37)
[2018-03-13] MEDS: hydrOXYzine pamoate 25 MG CAPSULE PO PRN (13:52)
[2018-03-13] MEDS: *HR* HYDROcodone/Acet 5/325 mg TABLET PO PRN (18:26)
[2018-03-14] MEDS: *HR* HYDROcodone/Acet 5/325 mg TABLET PO PRN ×2 (00:18→07:56)
[2018-03-14] MEDS: 0.9 % Sodium Chloride 1,000 ML IVC SCH (02:40)
[2018-03-14] MEDS: Ketorolac 15 MG/ML VIAL IVP PRN ×2 (02:49→11:16)
[2018-03-14 03:32] LABS: Basophils # 0.1 K/mcL (0.0-0.2); Basophils % 0.4 %; Eosinophils # 0.4 K/mcL (0.0-0.6); Eosinophils % 3.5 %; Hematocrit 32.9 % (35.3-44.9); Hemoglobin 10.7 g/dL (11.5-15.4); Immature Granulocytes % 0.5 % (0-4); Lymphocytes # 1.5 K/mcL (0.6-4.6); Lymphocytes % 12.6 %; Mean Corpuscular HGB Conc 32.5 g/dL (31.6-35.5); Mean Corpuscular Hemoglobin 27.9 pg (28.0-33.3); Mean Corpuscular Volume 85.9 fL (83.0-100.0); Mean Platelet Volume 10.9 fL (9.4-12.4); Monocytes # 0.9 K/mcL (0.0-1.3); Monocytes % 7.6 %; Platelet Count 134 K/mcL (140-400); Red Blood Count 3.83 M/mcL (3.82-4.97); Red Cell Distribution Width 15.8 % (11.5-14.5); Segmented Neutrophils % 75.4 %
[2018-03-14] MEDS: Ipratropium/Albuterol Neb 3 ML IH SCH ×6 (03:47→23:09)
[2018-03-14 04:00] LABS: BUN/Creatinine Ratio 10 (6-26); Blood Urea Nitrogen 4 mg/dL (6-20); Calcium 7.9 mg/dL (8.6-10.3); Carbon Dioxide 30 mEq/L (23-29); Chloride 90 mEq/L (98-107); Glucose 95 mg/dL (70-105); Osmolality,Calculated 259 (280-300); Potassium 3.9 mEq/L (3.5-5.1); Sodium 126 mEq/L (136-145); eGFR For African Americans > 60 (> 60); eGFR For Non-African Americans > 60 (> 60)
--- NOTE | 2018-03-14 06:50 | Electrocardiograph Report ---
[place] [facility] Test Date: 2018-03-11 Pat Name: Montserrat Rodriguez Department: 104 Room: 3B21 Gender: F Anesthesiology Faculty: : 1960 Requested By: Supa Abad Order Number: [id number] Reading MD: Moody Hall Measurements Intervals [place] Rate: 87 P: 63 MO: 181 QRS: 64 QRSD: 93 T: 66 QT: 373 QTc: 418 Interpretive Statements SINUS RHYTHM Electronically Signed On 03-14-2018 6:48:36 EDT by Moody Hall
[2018-03-14] MEDS: Budesonide/Formoterol 160/4.5 MDI IH SCH ×2 (07:20→19:34)
[2018-03-14] MEDS: Metoprolol XL (24 HR) Succ 25 MG TAB.ER.24H PO SCH (07:56)
[2018-03-14] MEDS: Vitamin B Complex/Vit C/Vit E 1 EACH TABLET PO SCH (07:56)
[2018-03-14] MEDS: amLODIPine 5 MG TABLET PO SCH (07:56)
[2018-03-14] MEDS: Cholecalciferol (D-3) 1,000 UNIT TABLET PO SCH (07:56)
[2018-03-14] MEDS: Loratadine 10 MG TABLET PO SCH (07:56)
[2018-03-14] MEDS: Pantoprazole 40 MG VIAL IVP SCH (07:57)
[2018-03-14 08:29] LABS: Thyroid Stimulating Hormone 7.285 mcIU/mL (0.340-5.600)
--- NOTE | 2018-03-14 09:07 | Internal Med Progress Note ---
Date of Encounter: 03/14/18 Time of Encounter: 09:05 - Assessment and plan (1) COPD exacerbation Current Visit: Yes Status: Resolved Assessment and plan: Presented with progressive dyspnea 1 week, requiring the increased use of inhaler and up titration of oxygen Treated for an acute exacerbation of COPD History of chronic respiratory failure with hypoxia requiring chronic 2 L nasal cannula No longer in acute exacerbation, patient now back on baseline oxygen at 2 L nasal cannula Per my assessment this morning she does not appear to be in respiratory distress , resting on RA, lungs clear/diminished throughout with prolonged expiratory phase CXR obtained on admission and found to be negative for acute cardiac pulmonary process CT of abdomen/pelvis on 03/10/18 shows bronchiolitis Sputum culture obtained-growing Pseudomonas blood cultures NGTD Continue Levaquin IV PB 750 mg daily due to Pseudomonas, follow cultures and adjust ABX as appropriate Continue albuterol and Atrovent every 4 hours, Continue incentive spirometry use Monitor labs daily (2) Compression fracture of body of thoracic vertebra Current Visit: Yes Status: Acute Assessment and plan: Severe T12 compression fracture Unclear but possible mild progression compared to December This occurred from a prior fall a few weeks ago Patient has history of alcohol abuse and is unclear if she has had an additional fall since the initial event prompting the T12 compression fractures Consult to orthospine Dr. Kuhn. Thank you for your evaluation and recommendations not a candidate for kyphoplasty PT/OT and pain management- will benefit from pain management f/u and PT/OT outpatient Disontinue hydrocodone prn Start Oxycodone 10/325 Q6prn Toradol when necessary for pain (3) Alcohol dependence Current Visit: Yes Status: Acute Assessment and plan: History of alcohol dependence Patient unsure of exactly how much she ingests reports that she drinks on a regular basis Last drink was approximately 2.5 days ago Yesterday appeared to have S/SX withdrawal No withdrawal S/SX today Patient does not appear agitated or anxious, no tremors present Continue CIWA protocol and Ativan when necessary Denies any suicidal/homicidal ideations or plan, denies auditory/visual hallucinations Continue B vitamin complex and thiamine daily Qualifiers: Substance use status: in withdrawal Complication of substance-induced condition: with unspecified complication Qualified Code(s): F10.239 - Alcohol dependence with withdrawal, unspecified (4) Alcohol withdrawal Current Visit: Yes Status: Acute Assessment and plan: See above Qualifiers: Complication of substance-induced condition: with unspecified complication Qualified Code(s): F10.239 - Alcohol dependence with withdrawal, unspecified (5) Chronic respiratory failure with hypoxia Current Visit: Yes Status: Acute Assessment and plan: History of chronic respiratory failure with hypoxia, baseline 2 L nasal cannula. Patient back to baseline. (6) Hypertension Current Visit: Yes Status: Chronic Assessment and plan: History of HTN, BP stable BP elevated yesterday norvasc 5mg daily added for better control of BP anti-HTN medications and monitor closely adjust medications as necessary Qualifiers: Hypertension type: unspecified Qualified Code(s): I10 - Essential (primary ) hypertension (7) GI bleed Current Visit: Yes Status: Suspected Assessment and plan: Patient reporting black tarry stools,had an additional episode of black tarry stools yesterday evening No prior history of GI bleeding Gastroenterology to see in consultation, thank you for your evaluation and recommendations Obtain fecal occult blood-remains uncollected Mild anemia on today's labs however, remains hemodynamically stable Qualifiers: GI bleed type/associated pathology: unspecified gastrointestinal hemorrhage type Qualified Code(s): K92.2 - Gastrointestinal hemorrhage, unspecified (8) Hyponatremia Current Visit: Yes Status: Acute Assessment and plan: in the setting of hypovolemia Patient reporting decreased oral intake and diarrhea Has been receiving gentle hydration Patient euvolemic today, continues to have hyponatremia Discontinue 0.9% normal saline as she is now euvolemic Rule out other causes of hyponatremia such as SIADH, hypothyroidism Check urine sodium Obtain TSH, free T4 patient currently asymptomatic (9) Malnutrition Current Visit: Yes Status: Acute Assessment and plan: Malnutrition 2/2 to chronic severe alcohol abuse Discussed alcohol cessation with patient Qualifiers: Malnutrition type: unspecified type Qualified Code(s): E46 - Unspecified protein-calorie malnutrition (10) Anemia Current Visit: Yes Status: Acute Assessment and plan: Patient has history of chronic anemia Iron deficiency, serum iron 26 per yesterdays labs Multifactorial due to malnutrition with severe alcohol abuse and suspected GI bleed Fecal occult blood ordered but uncollected Reports having black tarry stools yesterday evening Hemoglobin and hematocrit stable Remains hemodynamically stable Continue closely monitor H&H Qualifiers: Anemia type: unspecified type Qualified Code(s): D64.9 - Anemia, unspecified (11) DVT prophylaxis Current Visit: Yes Status: Acute Assessment and plan: Cont Foot pumps, increase mobilization as tolerated - Time Spent With Patient Total time spent is greater than 50% in coordination of care (as documented) at patient's floor/unit and/or counseling patient: 25 - 35 minutes - Subjective Interval history: Seen and examined at bedside today. Patient reporting mid back in the setting of known T12 compression fracture. Also, continuing to report nausea and black bowel movements. Denies any suicidal/homicidal ideation or plan, denies any auditory or visual hallucinations - Constitutional Vitals: Temp Pulse Resp BP Pulse Ox 98.2 F 82 16 132/77 94 03/14/18 07:00 03/14/18 07:00 03/14/18 07:20 03/14/18 07:00 03/14/18 07:20 General appearance: Present: mild distress, A&O X 3, no acute distress, answers questions appropriately - Head Head exam: Present: atraumatic, normocephalic - Eye Eye exam: Present: EOMI, PERRL, conjuntiva pink, sclera anicteric Pupils: Present: PERRL - Neck Neck exam general surgery: Present: full ROM, supple, trachea midline. Absent: lymphadenopathy, tenderness - Respiratory Respiratory exam: Present: decreased breath sounds, CTAB, prolonged expiratory phase. Absent: accessory muscle use, rales, respiratory distress, rhonchi, wheezes, tachypnea - Cardiovascular Cardiovascular exam: Present: RRR, +S1, +S2. Absent: diastolic murmur, gallop, rubs, systolic murmur - GI/Abdominal GI/Abdominal exam: Present: normal bowel sounds, soft, tenderness (Mild bilateral upper abdominal tenderness to palpation ), no peritoneal signs. Absent: distended, firm, guarding - Extremities Exam Extremities exam: Present: normal inspection, warm, radial pulses palpable and symmetrical. Absent: calf tenderness, cyanotic, pedal edema, tenderness - Back Exam Back exam: Present: tenderness. Absent: CVA tenderness (L), CVA tenderness (R) , full ROM - Neurological Exam Neurological exam: Present: alert, CN II-XII intact, oriented X3, no focal deficits, strengths equal and symetr throughout. Absent: pronater drift, facial droop, speech deficit - Skin Skin exam: Present: dry, intact Internal Medicine: Result - Labs CBC & Chem 7: 03/14/18 03:20 03/14/18 03:20 Labs: Short CBC 03/14/18 Range/Units 03:20 WBC 12.0 H (4.3-11.1) K/mcL Hgb 10.7 L (11.5-15.4) g/dL Hct 32.9 L (35.3-44.9) % Plt Count 134 L (140-400) K/mcL Neutrophils # 9.0 H (1.6-8.9) K/mcL BMP 03/14/18 03:20 Sodium 126 L Potassium 3.9 Chloride 90 L Carbon Dioxide 30 H BUN 4 L Creatinine 0.40 L Glucose 95 Calcium 7.9 L - ABG Interpretation ABG results: PT/INR, D-dimer PT 11.2 Seconds (9.4-12.1) 03/11/18 13:08 - VTE Documentation of Mechanical Device: Intermittent pneumatic compression device Consult Discharge Plan - Plan Referrals: Chris Stiles DO [Partnered Physician] - 04/07/18 7:50 am Terrie Joseph CNP [Primary Care Provider] - 03/21/18 1:00 pm ()
--- NOTE | 2018-03-14 09:26 | Gastroenterology Consult Note ---
Date of Encounter: 03/14/18 Time of Encounter: 09:24 - Assessment and plan (1) GI bleed Current Visit: Yes Status: Suspected Assessment and plan: - Possible GI bleed. Reported dark stools. - Colonoscopy 05/04/16 wnl without evidence of bleed - Patient reportedly takes NSAIDs for pain, known alcohol abuse - Dark stools approximately once per month - H/H stbale at 10.7/32.9. Plan - Possible EGD/Colonscopy tomorrow. NPO midnight. - Stop NSAIDs. Continue protonix. - Further plan discussed with Dr. Ruelas Qualifiers: GI bleed type/associated pathology: unspecified gastrointestinal hemorrhage type Qualified Code(s): K92.2 - Gastrointestinal hemorrhage, unspecified (2) Elevated LFTs Current Visit: Yes Status: Chronic Assessment and plan: - Secondary to known hepatic steatosis - Chronic (3) Hepatic steatosis Current Visit: Yes Status: Chronic (4) Alcohol abuse Current Visit: Yes Status: Chronic Assessment and plan: - Possibly contributing to abdominal pain. - CIWA protocol. - Per primary team (5) Abdominal pain Current Visit: Yes Status: Acute Assessment and plan: - Suspect gastritis vs PUD - Management as above. - Generalized. - Plan for EGD/colonoscopy tomorrow. Qualifiers: Abdominal location: generalized Qualified Code(s): R10.84 - Generalized abdominal pain (6) Anemia Current Visit: Yes Status: Chronic Qualifiers: Anemia type: unspecified type Qualified Code(s): D64.9 - Anemia, unspecified - Time Spent With Patient Total time spent is greater than 50% in coordination of care (as documented) at patient's floor/unit and/or counseling patient: GI History of Present Illness - Data of Consult Consult date: 03/14/18 Requesting Physician: Ernesto Marquez MD - Consult Narrative Reason for consult: Black tarry stools History of present illness: Ms. Rodriguez is a 57 year old female with past medical history of alcohol abuse, hepatic steatosis, COPD, compression fracture of the lumbar spine presents to emergency room with complaint of dyspnea and back pain. Gastroenterology was consulted for report of dark tarry stools. Patient states that she has had this complaint multiple times in the past experiencing a dark stool approximately one time per month. She also admits to associated abdominal pain located diffusely which is sharp in nature. She states the pain is constant. Also admits to some nausea and vomiting and decreased appetite. Denies any symptoms of fevers, chills, chest pain but is short of breath this time which is not abnormal. Home medications are reviewed and include meloxicam. She states that her pain is quite severe this morning and that the pain medication she has been getting since admitted is not working. Colonoscopy: 05/04/16- No evidence of bleed Past Med Surg Social Fam HX - Past Medical History Medical history: COPD, hypertension, liver disease, TIA Additional medical history: depression, back pain, chest pain, headache Psychiatric history: anxiety, depression - Past Surgical History Surgical History: other Additional surgical history: D&C - Social History Smoking Status: Current every day smoker Smokeless Tobacco Status: No Alcohol use: heavy Drug use: none - Family History Brother Adopted: No Living Status: Hx Family Cancer: Yes (Lung) Review of Systems: - Constitutional: Denies fevers, chills, weight loss, generalized fatigue - CVS: Denies chest pain, palpitations, CHEUNG, orthopnea, edema, PND - Pulm: Admits to shortness of breath - GI: Admits to abdominal pain, nausea, vomiting, dark stools. Denies diarrhea , constipation - : Denies dysuria, increased frequency, urgency, hematuria, - MSK: Admits to acute on chronic back pain - Skin: Denies rashes, ulcers, color changes, - Constitutional Vitals: Temp Pulse Resp BP Pulse Ox 98.2 F 82 16 132/77 94 03/14/18 07:00 03/14/18 07:00 03/14/18 07:20 03/14/18 07:00 03/14/18 07:20 Exam: Gen.: Vitals noted. No acute distress. AAOx3. Leaning forward, patient appears comfortable but complains of significant pain HEENT: PERRL/EOMI, oropharynx clear, Normocephalic, atraumatic, MMM Cardiac: RRR, no murmur, +S1/S2, occasional PVCs Pulmonary: Decreased breath sounds bilaterally, mild wheezes in bases. Abdomen: soft, very tender diffusely unable to palpate deeply., BS noted, no guarding, patient reports rebound tenderness MSK: ROM intact, no joint swelling noted Extremities: no BLE edema, nontender calf, no cyanosis or clubbing Neuro: A&Ox3, moves all extremities, no focal deficits Psych: Appropriate mood and behavior Results - Labs CBC & Chem 7: 03/14/18 03:20 03/14/18 03:20 Labs: Last Result Calcium 7.9 mg/dL (8.6-10.3) L 03/14/18 03:20 Iron 26 mcg/dL (50-170) L 03/12/18 11:22 % Saturation 8 % (15-50) L 03/12/18 11:22 Transferrin 239 mg/dL (203-362) 03/12/18 11:22 Troponin I < 0.03 ng/mL (< 0.04) 03/11/18 09:45 Vitamin B12 347 pg/mL (250-1100) 03/12/18 11:22 Folate > 22.3 ng/mL (3.0-16.0) H 03/12/18 11:22 Entire Visit Hgb 10.7 g/dL (11.5-15.4) L 03/14/18 03:20 Hct 32.9 % (35.3-44.9) L 03/14/18 03:20 PT 11.2 Seconds (9.4-12.1) 03/11/18 13:08 Folate > 22.3 ng/mL (3.0-16.0) H 03/12/18 11:22 - ABG ABG results: PT/INR, D-dimer PT 11.2 Seconds (9.4-12.1) 03/11/18 13:08 Consult Discharge Plan - Plan Referrals: Chris Stiles DO [Partnered Physician] - 04/07/18 7:50 am Terrie Joseph CNP [Primary Care Provider] - 03/21/18 1:00 pm ()
[2018-03-14] MEDS: Levofloxacin 750 MG/150 ML 750 MG/150 ML BAG IVPB SCH (11:16)
[2018-03-14] MEDS: Acetaminophen 325 MG TABLET PO PRN (13:16)
--- NOTE | 2018-03-14 13:39 | Pain Management Consultation ---
Date of Encounter: 03/14/18 Time of Encounter: 13:36 Assessment and Plan (1) Osteoporotic compression fracture of spine Current Visit: Yes Status: Chronic The assessment and plan as outlined above was discussed with the patient and/or family members who expressed understanding and agreement. All questions were answered. I do not think this patient is a candidate for kyphoplasty. I recommend pain control and conservative measures to include PT. The patient would benefit from a regimen of percocet 10/325 one every 6 hours as needed for pain. She may benefit from oxycodone only in the short term given liver history. Pain is almost entirely in the low back. Patient can f/u as an outpatient as needed. Qualifiers: Encounter type: initial encounter Qualified Code(s): M80.88XA - Other osteoporosis with current pathological fracture, vertebra(e), initial encounter for fracture History of Present Illness Chief complaint: low back pain HPI: Ms. Rodriguez is a 57 year old female 3 weeks history of low back pain. Does not radiate to the legs. Constant, improved with pain medication which decreases pain to 4/10 with activity when using it. The pain is across the low back and into the flank on the right. Rest helps. No reports of acute weakness, not report of acute changes in bladder or bowel function. Past Med Surg Social Fam HX - Past Medical History Medical history: COPD, hypertension, liver disease, TIA Additional medical history: depression, back pain, chest pain, headache Psychiatric history: anxiety, depression - Past Surgical History Surgical History: other Additional surgical history: D&C - Social History Smoking Status: Current every day smoker Smokeless Tobacco Status: No Alcohol use: heavy Drug use: none - Family History Brother Adopted: No Living Status: Hx Family Cancer: Yes (Lung) Medications and Allergies Ipratropium/Albuterol Sulfate [Combivent Respimat Inhal [place]] 1 puff IH QID [History] Guaifenesin [Mucinex] 600 mg PO Q12H 09/13/17 [History] Oxygen 2 l NS AD 09/13/17 [History] Omeprazole [PriLOSEC] 40 mg PO DAILY@0630 capsule. 11/27/17 [Rx] Budesonide/Formoterol 160/4.5 [Symbicort 160/4.5] 1 puff IH BID 12/30/17 [ History] Cetirizine HCl [All Day Allergy] 10 mg PO DAILY 12/30/17 [History] Escitalopram [Lexapro] 10 mg PO DAILY 12/30/17 [History] Meloxicam 15 mg PO DAILY 12/30/17 [History] Metoprolol XL (24 HR) Succ [Toprol Xl] 25 mg PO DAILY 12/30/17 [History] Vitamin B Complex/Vit C/Vit E [Stresstab] 1 cap PO DAILY 12/30/17 [History] hydrOXYzine HCl [Hydroxyzine HCl] 25 mg PO TID 12/30/17 [History] Calcitonin,[place],Synthetic [Calcitonin-[place]] 1 spr NS DAILY 03/11/18 [History ] Calcium Carb, Citrate/Vit D3 [Calcium + D3 ER Tablet] 1 tab PO DAILY 03/11/18 [ History] Ondansetron ODT [Zofran ODT] 4 mg PO TID PRN 03/11/18 [History] 3 Allergy/AdvReac Type Severity Reaction Status Date / Time No Known Allergies Allergy Verified 03/11/18 11:17 Review of Systems - Constitutional Constitutional ROS IM: as per HPI - EENT Nose, mouth and throat: no headache(s), no neck pain, no neck trauma - Cardiovascular Cardiovascular ROS: no chest pain, no leg edema, no lightheadedness - Respiratory Respiratory: as per HPI (mild baselines SOB) - Gastrointestinal Gastrointestinal: no abdominal pain, no constipation, no diarrhea, no heartburn - Genitourinary Genitourinary ROS: no difficulty urinating, no flank pain, no urinary hesitancy - Musculoskeletal Musculoskeletal ROS: as per HPI (Nack pain) - Integumentary Integumentary: no erythema, no lesions, no swelling - Neurological Neurological ROS: abnormal gait - Psychiatric Psychiatric general: no anxiety, no confusion, no depression - Hematologic/Lymphatic Hematologic/Lymphatic pediatric: no easy bleeding, no easy bruising Physical Exam Initial Vital Signs Temp Pulse Resp BP Pulse Ox 98.7 F 68 18 160/122 100 03/11/18 09:10 03/11/18 09:10 03/11/18 09:10 03/11/18 09:10 03/11/18 09:10 - General physical appearance General physical appearance: awake & oriented, no distress, moderate pain - Eyes Eye exam: normal ocular movement - ENT atraumatic, normocephalic - Neck trachea midline - Respiratory other (prolonged expiratory phase) - Cardiovascular Cardiovascular exam: Present: RRR - Abdomen Abdomen: soft - Neurologic normal coordination, normal sensation - Musculoskeletal Musculoskeletal: kyphosis, other (Moderate TTP over the lumbar spine, no gross deformity. ) - Psychiatric Psychiatric: oriented to time, oriented to person, oriented to place, speech is normal, memory intact Results - Labs 03/14/18 03:20 03/14/18 03:20 Abnormal lab results WBC 12.0 K/mcL (4.3-11.1) H 03/14/18 03:20 Hgb 10.7 g/dL (11.5-15.4) L 03/14/18 03:20 Hct 32.9 % (35.3-44.9) L 03/14/18 03:20 MCH 27.9 pg (28.0-33.3) L 03/14/18 03:20 RDW 15.8 % (11.5-14.5) H 03/14/18 03:20 Plt Count 134 K/mcL (140-400) L 03/14/18 03:20 Neutrophils # 9.0 K/mcL (1.6-8.9) H 03/14/18 03:20 Immature Plt Fraction 26.1 % (1.1-6.1) H 03/13/18 04:43 Sodium 126 mEq/L (136-145) L 03/14/18 03:20 Chloride 90 mEq/L (98-107) L 03/14/18 03:20 Carbon Dioxide 30 mEq/L (23-29) H 03/14/18 03:20 BUN 4 mg/dL (6-20) L 03/14/18 03:20 Creatinine 0.40 mg/dL (0.60-1.20) L 03/14/18 03:20 Calculated Osmolality 259 (280-300) L 03/14/18 03:20 Calcium 7.9 mg/dL (8.6-10.3) L 03/14/18 03:20 Iron 26 mcg/dL (50-170) L 03/12/18 11:22 % Saturation 8 % (15-50) L 03/12/18 11:22 Folate > 22.3 ng/mL (3.0-16.0) H 03/12/18 11:22 TSH 7.285 mcIU/mL (0.340-5.600) H 03/14/18 03:20 Diabetes panel 03/14/18 Range/Units 03:20 Sodium 126 L (136-145) mEq/L Potassium 3.9 (3.5-5.1) mEq/L Chloride 90 L (98-107) mEq/L Carbon Dioxide 30 H (23-29) mEq/L BUN 4 L (6-20) mg/dL Creatinine 0.40 L (0.60-1.20) mg/dL Glucose 95 (70-105) mg/dL Calcium 7.9 L (8.6-10.3) mg/dL Thyroid panel 03/14/18 Range/Units 03:20 TSH 7.285 H (0.340-5.600) mcIU/mL Calcium panel 03/14/18 Range/Units 03:20 Calcium 7.9 L (8.6-10.3) mg/dL Pituitary panel 03/14/18 Range/Units 03:20 Sodium 126 L (136-145) mEq/L Potassium 3.9 (3.5-5.1) mEq/L Chloride 90 L (98-107) mEq/L Carbon Dioxide 30 H (23-29) mEq/L BUN 4 L (6-20) mg/dL Creatinine 0.40 L (0.60-1.20) mg/dL Glucose 95 (70-105) mg/dL Calcium 7.9 L (8.6-10.3) mg/dL TSH 7.285 H (0.340-5.600) mcIU/mL Adrenal panel 03/14/18 Range/Units 03:20 Sodium 126 L (136-145) mEq/L Potassium 3.9 (3.5-5.1) mEq/L Chloride 90 L (98-107) mEq/L Carbon Dioxide 30 H (23-29) mEq/L BUN 4 L (6-20) mg/dL Creatinine 0.40 L (0.60-1.20) mg/dL Glucose 95 (70-105) mg/dL Calcium 7.9 L (8.6-10.3) mg/dL All other labs normal. - Imaging CT scan - abdomen: report reviewed, image reviewed (Reviewed CT results and report as follows: "Bones/Soft Tissues: There is a severe anterior compression deformity at T12, which is slightly progressed from the previous study. There is associated bony retropulsion, measuring 0.6 cm, resulting and moderate spinal canal narrowing at this level. The degree of bony retropulsion is not significantly changed when compared to 01/02/2018. No acute or suspicious osseous abnormality. CT/CT abd pelvis w iv and oral IMPRESSION: 1. Mild wall thickening in the sigmoid colon, which could be due to incomplete distention, chronic diverticular inflammation, or colitis. No bowel obstruction or significant pericolonic inflammatory change. 2. Chronic changes in the lung bases, suggesting bronchiolitis. Additional chronic findings in the abdomen and pelvis are detailed above. D/ / 03/10/2018 14: 49:46 Brea Ray / marito Interpreting Provider: Brea Ray ") - VTE Documentation of Mechanical Device: Intermittent pneumatic compression device Consult Discharge Plan - Plan Referrals: Chris Stiles DO [Partnered Physician] - 04/07/18 7:50 am Terrie Joseph CNP [Primary Care Provider] - 03/21/18 1:00 pm ()
[2018-03-14] MEDS ORDERED: SODIUM CHLORIDE/NAHCO3/KCL/PEG 4,000 ML SOLN.RECON PO ONE (14:59)
[2018-03-14] MEDS: *HR* OxyCODONE/APAP 10/325 TABLET PO PRN ×2 (15:21→21:50)
[2018-03-14] MEDS: Fluticasone Propionate Nasal 50 MCG/SPRAY BOTTLE NS SCH (18:37)
[2018-03-14] MEDS: Ondansetron ODT 4 MG TAB.RAPDIS PO PRN (20:16)
[2018-03-15] MEDS: hydrOXYzine pamoate 25 MG CAPSULE PO PRN ×2 (00:10→11:43)
[2018-03-15] MEDS: Acetaminophen 325 MG TABLET PO PRN (00:17)
[2018-03-15] MEDS: Ipratropium/Albuterol Neb 3 ML IH SCH ×6 (03:38→23:44)
[2018-03-15] MEDS: *HR* OxyCODONE/APAP 10/325 TABLET PO PRN ×2 (04:34→10:46)
[2018-03-15 04:55] LABS: Basophils % 0.4 %; Eosinophils # 0.5 K/mcL (0.0-0.6); Hemoglobin 10.3 g/dL (11.5-15.4); Lymphocytes # 1.6 K/mcL (0.6-4.6); Lymphocytes % 15.5 %; Mean Corpuscular HGB Conc 33.2 g/dL (31.6-35.5); Mean Corpuscular Hemoglobin 28.1 pg (28.0-33.3); Mean Corpuscular Volume 84.7 fL (83.0-100.0); Monocytes # 0.8 K/mcL (0.0-1.3); Monocytes % 8.2 %; Neutrophils # 7.1 K/mcL (1.6-8.9); Red Blood Count 3.66 M/mcL (3.82-4.97); Red Cell Distribution Width 15.5 % (11.5-14.5); Segmented Neutrophils % 69.9 %
[2018-03-15 05:19] LABS: BUN/Creatinine Ratio 13 (6-26); Blood Urea Nitrogen 5 mg/dL (6-20); Calcium 7.5 mg/dL (8.6-10.3); Carbon Dioxide 26 mEq/L (23-29); Chloride 88 mEq/L (98-107); Glucose 83 mg/dL (70-105); Osmolality,Calculated 250 (280-300); Sodium 122 mEq/L (136-145); eGFR For African Americans > 60 (> 60); eGFR For Non-African Americans > 60 (> 60)
[2018-03-15 06:40] LABS: Mean Platelet Volume 8.2 fL (9.4-12.4)
[2018-03-15] MEDS: Budesonide/Formoterol 160/4.5 MDI IH SCH ×2 (08:00→19:41)
[2018-03-15] MEDS: Metoprolol XL (24 HR) Succ 25 MG TAB.ER.24H PO SCH (08:23)
[2018-03-15] MEDS: Loratadine 10 MG TABLET PO SCH (08:23)
[2018-03-15] MEDS: amLODIPine 5 MG TABLET PO SCH (08:23)
[2018-03-15] MEDS: Cholecalciferol (D-3) 1,000 UNIT TABLET PO SCH (08:23)
[2018-03-15] MEDS: Fluticasone Propionate Nasal 50 MCG/SPRAY BOTTLE NS SCH (08:24)
[2018-03-15] MEDS: Vitamin B Complex/Vit C/Vit E 1 EACH TABLET PO SCH (08:24)
[2018-03-15] MEDS: Pantoprazole 40 MG VIAL IVP SCH (08:24)
[2018-03-15] MEDS ORDERED: Potassium Chloride 20 MEQ, Lidocaine 1% 2 ML in D5% in Water 250 ML IVPB ONE (08:33)
--- NOTE | 2018-03-15 10:37 | Internal Med Progress Note ---
Date of Encounter: 03/15/18 Time of Encounter: 10:35 - Assessment and plan (1) Elevated LFTs Current Visit: Yes Status: Chronic Assessment and plan: Chronic- Secondary to known hepatic steatosis (2) Hepatic steatosis Current Visit: Yes Status: Chronic Assessment and plan: chronic (3) Alcohol abuse Current Visit: Yes Status: Chronic Assessment and plan: No withdrawal symptoms at this time Cont with CIWA (4) Abdominal pain Current Visit: Yes Status: Acute Assessment and plan: GI consulted -gastritis versus peptic ulcer disease plan for EGD/colonoscopy today Qualifiers: Abdominal location: generalized Qualified Code(s): R10.84 - Generalized abdominal pain (5) GI bleed Current Visit: Yes Status: Suspected Assessment and plan: Reported dark stools per patient Previous colonoscopy 05/04/16 within normal limits no evidence of GI bleeding Patient is a known alcoholic she also uses NSAIDs Patient was seen by gastroenterology she is to undergo a colonoscopy/EGD today H&H stable at this time 10.3 continue to monitor Qualifiers: GI bleed type/associated pathology: unspecified gastrointestinal hemorrhage type Qualified Code(s): K92.2 - Gastrointestinal hemorrhage, unspecified (6) Anemia Current Visit: Yes Status: Chronic Assessment and plan: Patient has history of chronic anemia Iron deficiency, serum iron 26 per yesterdays labs Multifactorial due to malnutrition with severe alcohol abuse and suspected GI bleed Fecal occult blood ordered but uncollected Reports having black tarry stools Hemoglobin and hematocrit stable at this time Remains hemodynamically stable Continue closely monitor H&H-transfuse as needed Qualifiers: Anemia type: unspecified type Qualified Code(s): D64.9 - Anemia, unspecified (7) DVT prophylaxis Current Visit: Yes Status: Acute Assessment and plan: Cont Foot pumps, increase mobilization as tolerated- anemia suspicious GI bleed - Time Spent With Patient Total time spent is greater than 50% in coordination of care (as documented) at patient's floor/unit and/or counseling patient: - Subjective Interval history: patient seen and examined at bedside, awaiting colonscopy today- patient states "I am going home after procedure, no matter what" - Constitutional Vitals: Temp Pulse Resp BP Pulse Ox 97.8 F 83 18 114/66 96 03/15/18 07:05 03/15/18 07:05 03/15/18 08:03 03/15/18 07:05 03/15/18 08:03 General appearance: Present: mild distress, A&O X 3, no acute distress, answers questions appropriately - Head Head exam: Present: atraumatic, normocephalic - Eye Eye exam: Present: PERRL, conjuntiva pink, sclera anicteric Pupils: Present: PERRL - Neck Neck exam general surgery: Present: supple, trachea midline. Absent: lymphadenopathy - Respiratory Respiratory exam: Present: rhonchi. Absent: accessory muscle use, rales, wheezes - Cardiovascular Cardiovascular exam: Present: RRR, +S1, +S2. Absent: diastolic murmur, gallop, rubs, systolic murmur - GI/Abdominal GI/Abdominal exam: Present: normal bowel sounds, soft, no peritoneal signs. Absent: distended, tenderness - Extremities Exam Extremities exam: Present: warm, radial pulses palpable and symmetrical. Absent : calf tenderness, cyanotic, pedal edema - Neurological Exam Neurological exam: Present: CN II-XII intact, oriented X3, no focal deficits. Absent: pronater drift, facial droop, speech deficit - Skin Skin exam: Present: dry, intact Internal Medicine: Result - Labs CBC & Chem 7: 03/15/18 04:00 03/15/18 04:40 Labs: Short CBC 03/15/18 Range/Units 04:00 WBC 10.2 (4.3-11.1) K/mcL Hgb 10.3 L (11.5-15.4) g/dL Hct 31.0 L (35.3-44.9) % Plt Count TNP Neutrophils # 7.1 (1.6-8.9) K/mcL BMP 03/15/18 04:40 Sodium 122 L Potassium 3.0 L Chloride 88 L Carbon Dioxide 26 BUN 5 L Creatinine 0.40 L Glucose 83 Calcium 7.5 L - ABG Interpretation ABG results: PT/INR, D-dimer PT 11.2 Seconds (9.4-12.1) 03/11/18 13:08 - VTE Documentation of Mechanical Device: Intermittent pneumatic compression device Consult Discharge Plan - Plan Referrals: Chris Stiles DO [Partnered Physician] - 04/07/18 7:50 am Terrie Joseph FISHER QUAHOG [Primary Care Provider] - 03/21/18 1:00 pm ()
[2018-03-15] MEDS: Levofloxacin 750 MG/150 ML 750 MG/150 ML BAG IVPB SCH (13:10)
[2018-03-15] MEDS: *HR* LORazepam 2 MG/ML VIAL IVP PRN (13:10)
[2018-03-15] MEDS ORDERED: Propofol 500 MG/50 ML INFUS..BTL ONE (13:41)
[2018-03-15] MEDS ORDERED: Lidocaine -MPF 2% 2 ML VIAL ONE (13:41)
[2018-03-15] MEDS ORDERED: Tetracaine/Benzocaine/Butamben 200MG/SPRAY (100SPY/BOT) MM ONE (14:23)
[2018-03-15] MEDS ORDERED: Simethicone 40 MG/0.6 ML MLS IR ONE (14:23)
--- NOTE | 2018-03-15 14:35 | Anesthesia Evaluation PreOp ---
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 11/27/17 [Rx] Budesonide/Formoterol 160/4.5 [Symbicort 160/4.5] 1 puff IH BID 12/30/17 [ History] Cetirizine HCl [All Day Allergy] 10 mg PO DAILY 12/30/17 [History] Escitalopram [Lexapro] 10 mg PO DAILY 12/30/17 [History] Meloxicam 15 mg PO DAILY 12/30/17 [History] Metoprolol XL (24 HR) Succ [Toprol Xl] 25 mg PO DAILY 12/30/17 [History] Vitamin B Complex/Vit C/Vit E [Stresstab] 1 cap PO DAILY 12/30/17 [History] hydrOXYzine HCl [Hydroxyzine HCl] 25 mg PO TID 12/30/17 [History] Calcitonin,[place],Synthetic [Calcitonin-[place]] 1 spr NS DAILY 03/11/18 [History ] Calcium Carb, Citrate/Vit D3 [Calcium + D3 ER Tablet] 1 tab PO DAILY 03/11/18 [ History] Ondansetron ODT [Zofran ODT] 4 mg PO TID PRN 03/11/18 [History] 3 Allergy/AdvReac Type Severity Reaction Status Date / Time No Known Allergies Allergy Verified 03/11/18 11:17 - Meds/Allergy Pre-op Review Medications Reviewed: Yes Allergies Reviewed: Yes Beta Blockers on Current Med List: Yes If Beta Blockers taken, Date/Time (Last Dose taken): 03/15/2018 at 0823 Anesthesia Results - Labs 03/15/18 04:00 03/15/18 04:40 Laboratory Tests 11/22/17 03/11/18 14:58 13:08 PT 11.2 INR 1.0 APTT 29.2 - Imaging EKG: report reviewed (03/11/2018 SINUS RHYTHM) Additional studies: 09/14/2017 Echo Impressions: LVEF 55-60%. Normal LV chamber size, wall thickness and function. Mild left ventricular diastolic dysfunction. Normal right ventricular structure and function. Mild pulmonary hypertension. No significant valvular dysfunction. Anesthesia Exam O2 Sat Weight 56 kg O2 Sat by Pulse Oximetry 97 O2 Sat by Pulse Oximetry 90 O2 Sat by Pulse Oximetry 96 O2 Sat by Pulse Oximetry 99 O2 Sat by Pulse Oximetry 96 O2 Sat by Pulse Oximetry 96 O2 Sat by Pulse Oximetry 97 O2 Sat by Pulse Oximetry 100 O2 Sat by Pulse Oximetry 92 O2 Sat by Pulse Oximetry 96 O2 Sat by Pulse Oximetry 95 Vital Signs Temp Pulse Resp BP Pulse Ox 98.7 F 68 18 160/122 100 03/11/18 09:10 03/11/18 09:10 03/11/18 09:10 03/11/18 09:10 03/11/18 09:10 Height: 5'1''/1.55m Weight: 123 lbs/56 kjg NPO (# of Hours): 8 Pain Scale: 0 Pain Scale Used: Numeric (1 - 10) - HEENT Pupil (Motor): EOMI Mallampati: III Teeth: Edentulous Oral Opening: Greater than 3 - STUDIO ASSOCIATE LOC: Oriented STUDIO ASSOCIATE Motor: Normal LUE, Normal RLE, Normal LLE, Normal Face, Deficit RUE STUDIO ASSOCIATE Sensory: Normal: RUE, LUE, RLE, LLE, Face - Cardiac Rhythm: Regular Murmur: None - Pulmonary Breath Sounds: bilateral Rhonchi Respiratory Effort: Symmetrical Anesthesia Assess/Plan ASA Score: 3 Modified [place] Scale for Level of Consciousness: Cooperative, oriented, and tranquil Anesthetic Plan: MAC Monitoring Plan: Standard Monitors
[2018-03-16] MEDS: *HR* OxyCODONE/APAP 10/325 TABLET PO PRN ×2 (03:31→09:48)
[2018-03-16] MEDS: Ipratropium/Albuterol Neb 3 ML IH SCH ×3 (03:46→11:16)
[2018-03-16 04:29] LABS: Basophils % 0.4 %; Eosinophils # 0.4 K/mcL (0.0-0.6); Eosinophils % 4.5 %; Hemoglobin 10.3 g/dL (11.5-15.4); Immature Granulocytes % 0.9 % (0-4); Lymphocytes # 1.4 K/mcL (0.6-4.6); Lymphocytes % 14.2 %; Mean Corpuscular HGB Conc 33.2 g/dL (31.6-35.5); Mean Corpuscular Hemoglobin 29.2 pg (28.0-33.3); Mean Corpuscular Volume 87.8 fL (83.0-100.0); Monocytes # 0.8 K/mcL (0.0-1.3); Red Blood Count 3.53 M/mcL (3.82-4.97); Red Cell Distribution Width 15.6 % (11.5-14.5)
[2018-03-16 04:33] LABS: Mean Platelet Volume 8.4 fL (9.4-12.4)
[2018-03-16 04:57] LABS: BUN/Creatinine Ratio 8 (6-26); Blood Urea Nitrogen 4 mg/dL (6-20); Calcium 7.9 mg/dL (8.6-10.3); Carbon Dioxide 25 mEq/L (23-29); Chloride 95 mEq/L (98-107); Glucose 191 mg/dL (70-105); Osmolality,Calculated 266 (280-300); Potassium 3.8 mEq/L (3.5-5.1); Sodium 127 mEq/L (136-145); eGFR For African Americans > 60 (> 60); eGFR For Non-African Americans > 60 (> 60)
[2018-03-16] MEDS: Budesonide/Formoterol 160/4.5 MDI IH SCH (07:49)
[2018-03-16] MEDS: amLODIPine 5 MG TABLET PO SCH (09:48)
[2018-03-16] MEDS: Cholecalciferol (D-3) 1,000 UNIT TABLET PO SCH (09:48)
[2018-03-16] MEDS: Loratadine 10 MG TABLET PO SCH (09:49)
[2018-03-16] MEDS: Vitamin B Complex/Vit C/Vit E 1 EACH TABLET PO SCH (09:49)
[2018-03-16] MEDS: Fluticasone Propionate Nasal 50 MCG/SPRAY BOTTLE NS SCH (09:49)
[2018-03-16] MEDS: Metoprolol XL (24 HR) Succ 25 MG TAB.ER.24H PO SCH (09:49)
[2018-03-16] MEDS: Pantoprazole 40 MG VIAL IVP SCH (09:50)
--- NOTE | 2018-03-16 10:47 | Discharge Summary ---
Date of Encounter: 03/16/18 Time of Encounter: 10:44 - Discharge Diagnosis (1) Elevated LFTs Priority: Secondary Status: Chronic (2) Hepatic steatosis Priority: Secondary Status: Chronic (3) Alcohol abuse Priority: Secondary Status: Chronic (4) Abdominal pain Priority: Secondary Status: Acute Qualifiers: Abdominal location: generalized Qualified Code(s): R10.84 - Generalized abdominal pain (5) GI bleed Priority: Secondary Status: Suspected Qualifiers: GI bleed type/associated pathology: unspecified gastrointestinal hemorrhage type Qualified Code(s): K92.2 - Gastrointestinal hemorrhage, unspecified (6) Anemia Priority: Secondary Status: Chronic Qualifiers: Anemia type: unspecified type Qualified Code(s): D64.9 - Anemia, unspecified (7) Compression fracture of body of thoracic vertebra Priority: Secondary Status: Acute (8) COPD exacerbation Priority: Primary Status: Resolved Hospital course: Ms. Rodriguez is a 58 year old female patient with a past history of hepatic steatosis malnutrition tobacco abuse hypertension and COPD, EtOH abuse presented to the emergency department at [facility] with dyspnea but had been occurring for approximately 1 week and it had worsened with despite the use of her inhalers or oxygen. The patient also complained of back pain-CT of abdomen and pelvis did show severe anterior compression deformity at T12. Patient was admitted for COPD exacerbation she was given bronchodilators as well as Levaquin respiratory state did improve. Patient was seen by pain management who recommended Percocet 10/325 every 6 hours as needed for pain. She was also seen by GI surgery this admission for possible GI bleeding colonoscopy was completed nonbleeding internal hemorrhoids repeat colonoscopy 10 years for screening purposes returned to GI for follow-up in 2 weeks EGD-esophagitis with no bleeding continue PPI. Respiratory state is stable, no wheezing noted presently on home oxygen at 2 L denies any chest pain or shortness of breath patient states she feels well and is ready for discharge. Advised patient to follow-up with primary care as well as with GI in 2 weeks, also advised to follow-up with pain management as outpatient. She has received 5 days of Levaquin, I will send her home with 2 days of pain medications- percocet 10/325, oars report was reviewed ,advised patient to stop smoking advised patient not to take medications while drinking. Patient verbalized understanding she is hemodynamically stable. Patient is ready for discharge. Discharge discussed with: patient - Time Spent with Patient Total time spent providing and/or coordinating discharge services: - Discharge Medications Prescriptions: OxyCODONE/APAP 10/325 [Percocet 10/325 MG] 1 each PO Q6HR PRN 2 Days #8 tablet PRN Reason: Pain amLODIPine [Norvasc] 5 mg PO DAILY #30 tablet Ipratropium/Albuterol Sulfate [Combivent Respimat Inhal [place]] 1 puff IH QID #1 mist.inhal Home Medications: Guaifenesin [Mucinex] 600 mg PO Q12H 09/13/17 [History] Oxygen 2 l NS AD 09/13/17 [History] Omeprazole [PriLOSEC] 40 mg PO DAILY@0630 capsule. 11/27/17 [Rx] Budesonide/Formoterol 160/4.5 [Symbicort 160/4.5] 1 puff IH BID 12/30/17 [ History] Cetirizine HCl [All Day Allergy] 10 mg PO DAILY 12/30/17 [History] Escitalopram [Lexapro] 10 mg PO DAILY 12/30/17 [History] Meloxicam 15 mg PO DAILY 12/30/17 [History] Metoprolol XL (24 HR) Succ [Toprol Xl] 25 mg PO DAILY 12/30/17 [History] Vitamin B Complex/Vit C/Vit E [Stresstab] 1 cap PO DAILY 12/30/17 [History] hydrOXYzine HCl [Hydroxyzine HCl] 25 mg PO TID 12/30/17 [History] Calcitonin,[place],Synthetic [Calcitonin-[place]] 1 spr NS DAILY 03/11/18 [History ] Calcium Carb, Citrate/Vit D3 [Calcium + D3 ER Tablet] 1 tab PO DAILY 03/11/18 [ History] Ondansetron ODT [Zofran ODT] 4 mg PO TID PRN 03/11/18 [History] Ipratropium/Albuterol Sulfate [Combivent Respimat Inhal [place]] 1 puff IH QID #1 mist.inhal 03/16/18 [Rx] OxyCODONE/APAP 10/325 [Percocet 10/325 MG] 1 each PO Q6HR PRN 2 Days #8 tablet 03/16/18 [Rx] amLODIPine [Norvasc] 5 mg PO DAILY #30 tablet 03/16/18 [Rx] Allergies/Adverse Reactions: 3 Allergy/AdvReac Type Severity Reaction Status Date / Time No Known Allergies Allergy Verified 03/11/18 11:17 Date of admission: 03/11/18 18:02 Primary care physician: Terrie Joseph CNP Consults: 03/14/18 07:57 Consult to Gastroenterology [CONS] Routine Consulting Provider: Gastroenterology Veda Reason for Consult: black stools Time Notified: 07:57 Call Completed: Yes 03/14/18 09:03 Consult to Physician [CONS] Routine Consulting Provider: Alexandro Kuhn Reason for Consult: t12 compression fracture with slight progression from prior studies in december Time Notified: 09:04 Call Completed: Yes Discharging clinician: Eloisa Cummings Anticipated date of discharge: 03/16/18 - Constitutional Vitals: Temp Pulse Resp BP Pulse Ox 97.9 F 99 17 129/86 98 03/16/18 06:58 03/16/18 06:58 03/16/18 06:58 03/16/18 06:58 03/16/18 06:58 General appearance: Present: mild distress, A&O X 3, no acute distress, answers questions appropriately - Patient Status Disposition: Home, Self-Care Condition: Fair Overall status at discharge: patient is back to baseline - Discharge Instructions Follow Up With: Chris Stiles DO [Partnered Physician] - 04/07/18 7:50 am Terrie Joseph CNP [Primary Care Provider] - 03/21/18 1:00 pm () - Diet and Activity Activity: wear oxygen at all times Diet: advance to your usual diet - VTE Documentation of Mechanical Device: Venous foot pump, device
[2018-03-16] MEDS: hydrOXYzine pamoate 25 MG CAPSULE PO PRN (11:23)
[2018-03-16 11:36] VITALS: BP 115/73
[2018-03-16] MEDS: Levofloxacin 750 MG/150 ML 750 MG/150 ML BAG IVPB SCH (13:53)
--- NOTE | 2018-03-16 18:17 | Physician Discharge Referral ---
Home Health/Hosp Referral Info Transfer to: Home Health Attending Provider: Eloisa Cummings Provider in Charge Post Discharge: PCP - Diagnosis (1) Elevated LFTs Priority: Secondary Status: Chronic (2) Hepatic steatosis Priority: Secondary Status: Chronic (3) Alcohol abuse Priority: Secondary Status: Chronic (4) Abdominal pain Priority: Secondary Status: Acute (5) GI bleed Priority: Secondary Status: Suspected (6) Anemia Priority: Secondary Status: Chronic (7) Compression fracture of body of thoracic vertebra Priority: Secondary Status: Acute (8) COPD exacerbation Priority: Primary Status: Resolved - Respiratory Orders Oxygen / L per min Smoking Cessation: Smoking cessation has been advised. For more information, call the [place] Tobacco Quit Line at 6-688-UZHR-NOW. - Diet/Nutrition Diet/Nutrition Orders: Regular - Activity Activity Orders: Ambulate - Services Needed Following services are medically necessary services: Nursing, Physical Therapy, Occupational Therapy - Transfer Medications Prescriptions: OxyCODONE/APAP 10/325 [Percocet 10/325 MG] 1 each PO Q6HR PRN 2 Days #8 tablet PRN Reason: Pain amLODIPine [Norvasc] 5 mg PO DAILY #30 tablet Ipratropium/Albuterol Sulfate [Combivent Respimat Inhal [place]] 1 puff IH QID #1 mist.inhal Home Medications: Guaifenesin [Mucinex] 600 mg PO Q12H 09/13/17 [History] Oxygen 2 l NS AD 09/13/17 [History] Omeprazole [PriLOSEC] 40 mg PO DAILY@0630 capsule. 11/27/17 [Rx] Budesonide/Formoterol 160/4.5 [Symbicort 160/4.5] 1 puff IH BID 12/30/17 [ History] Cetirizine HCl [All Day Allergy] 10 mg PO DAILY 12/30/17 [History] Escitalopram [Lexapro] 10 mg PO DAILY 12/30/17 [History] Meloxicam 15 mg PO DAILY 12/30/17 [History] Metoprolol XL (24 HR) Succ [Toprol Xl] 25 mg PO DAILY 12/30/17 [History] Vitamin B Complex/Vit C/Vit E [Stresstab] 1 cap PO DAILY 12/30/17 [History] hydrOXYzine HCl [Hydroxyzine HCl] 25 mg PO TID 12/30/17 [History] Calcitonin,[place],Synthetic [Calcitonin-[place]] 1 spr NS DAILY 03/11/18 [History ] Calcium Carb, Citrate/Vit D3 [Calcium + D3 ER Tablet] 1 tab PO DAILY 03/11/18 [ History] Ondansetron ODT [Zofran ODT] 4 mg PO TID PRN 03/11/18 [History] Ipratropium/Albuterol Sulfate [Combivent Respimat Inhal [place]] 1 puff IH QID #1 mist.inhal 03/16/18 [Rx] OxyCODONE/APAP 10/325 [Percocet 10/325 MG] 1 each PO Q6HR PRN 2 Days #8 tablet 03/16/18 [Rx] amLODIPine [Norvasc] 5 mg PO DAILY #30 tablet 03/16/18 [Rx] Allergies/Adverse Reactions: 3 Allergy/AdvReac Type Severity Reaction Status Date / Time No Known Allergies Allergy Verified 03/11/18 11:17 Certification: Further, I certify that my clinical findings support that this patient is homebound (i.e. absences from home require considerable and taxing effort and are for medical reasons or amish services or infrequently or short duration when for other reasons) because: Homebound Reason: Severity of cardiac or pulmonary status limits activity tolerance Attestation: My signature below is to certify that this patient is under my care and that I, or nurse practitioner, or a physician's application assistant working with me, has a face-to -face encounter with this patient.
== END 2018-03-16 14:27 | disposition home or self-care (01) | DRG 191 ==
LOC: EMEROO 09:08 → 3BNU 09:08
PROVIDERS: ADMIT Internal Medicine; ATTEND Internal Medicine

== ENCOUNTER 2019-01-17 11:49 | Inpatient (IN) ==
[2019-01-17] MEDS ORDERED: methylPREDNISolone 125 MG/2 ML VIAL IVP ONE (12:16)
[2019-01-17] MEDS ORDERED: Azithromycin 500 MG in D5% in Water 250 ML IVPB SCH (13:00)
[2019-01-17] MEDS ORDERED: cefTRIAXone 2,000 MG in Water for inj. (sterile) 20 ML 20 ML IVP SCH (13:00)
[2019-01-17 13:05] LABS: Basophils % 0.1 %; Eosinophils % 0.2 %; Hematocrit 36.3 % (35.3-44.9); Hemoglobin 11.4 g/dL (11.5-15.4); Immature Granulocytes % 0.6 % (0-4); Lymphocytes # 0.6 K/mcL (0.6-4.6); Lymphocytes % 6.3 %; Mean Corpuscular HGB Conc 31.4 g/dL (31.6-35.5); Mean Corpuscular Hemoglobin 31.2 pg (28.0-33.3); Mean Corpuscular Volume 99.5 fL (83.0-100.0); Mean Platelet Volume 9.8 fL (9.4-12.4); Monocytes % 10.2 %; Neutrophils # 8.4 K/mcL (1.6-8.9); Platelet Count 206 K/mcL (140-400); Red Blood Count 3.65 M/mcL (3.82-4.97); Red Cell Distribution Width 15.8 % (11.5-14.5); Segmented Neutrophils % 82.6 %
[2019-01-17] MEDS ORDERED: Ipratropium/Albuterol Neb 3 ML IH ONE (13:05)
[2019-01-17 13:13] LABS: BUN/Creatinine Ratio 6 (6-26); Blood Urea Nitrogen 2 mg/dL (6-20); Calcium 8.4 mg/dL (8.6-10.3); Carbon Dioxide 29 mEq/L (23-29); Chloride 98 mEq/L (98-107); Glucose 130 mg/dL (70-105); Osmolality,Calculated 278 (280-300); Sodium 135 mEq/L (136-145); Troponin I < 0.03 ng/mL (< 0.04); eGFR For Non-African Americans > 60 (> 60)
[2019-01-17 13:18] LABS: INR 0.9; Prothrombin Time 9.9 Seconds (9.4-12.1)
[2019-01-17 13:21] LABS: Activated Partial Thrombo Time 31.5 Seconds (26.0-36.0)
[2019-01-17] MEDS ORDERED: Isovue-370 500 ML BOTTLE IVP ONE (14:42)
--- NOTE | 2019-01-17 14:58 | Electrocardiograph Report ---
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
--- NOTE | 2019-01-17 15:05 | Emergency Department Note ---
Disposition Clinical Impression: Bronchitis, Acute exacerbation of chronic obstructive pulmonary disease (COPD) Disposition: Admitted As Inpatient Condition: Fair Time of Disposition: 16:25 SOB HPI - General Chief Complaint: ED Shortness of Breath/Dyspnea Stated Complaint: jarek Time Seen by Provider: 01/17/19 11:51 Source: patient, EMS Mode of arrival: EMS Limitations: no limitations Nursing Notes Reviewed: Yes Vital Signs Reviewed: Yes - History of Present Illness Patient presents by EMS for evaluation of shortness of breath. Patient is been seen and evaluated for COPD exacerbations multiple times in the past. Patient denies any recent falls trauma or injury. She has not been compliant with her medications. Pt Subjective Complaint: shortness of breath Onset (ago): day(s) Context: medication noncompliance Severity: moderate Consistency/Duration: constant Improves with: oxygen, rest, bronchodilators, upright position Worsens with: lying flat Known history of: COPD Associated symptoms: Reports: denies other symptoms Treatment prior to arrival: oxygen, bronchodilator Cough present: No - Related Data Home Medications Medication Instructions Recorded Confirmed Escitalopram [Lexapro] 10 mg PO DAILY 12/30/17 12/22/18 Cetirizine HCl [24Hour Allergy] 10 mg PO DAILY 09/14/18 12/20/18 Levothyroxine Sodium [Tirosint] 25 mcg PO QAM 09/14/18 12/22/18 Meloxicam [Mobic] 15 mg PO DAILY 09/14/18 12/22/18 Omeprazole [PriLOSEC] 40 mg PO DAILY 09/14/18 12/22/18 Guaifenesin [Mucinex] 600 mg PO Q12HR PRN 12/07/18 12/20/18 hydrOXYzine HCl [Hydroxyzine HCl] 25 mg PO TID PRN 12/07/18 12/20/18 Fluticasone Propionate Nasal 1 spr NS DAILY 12/08/18 12/20/18 [Flonase] Fluticasone/Umeclidin/Vilanter 1 puff IH DAILY 12/08/18 12/22/18 [Trelegy Ellipta 100-62.5-25] Mirtazapine 7.5 mg PO HS 12/08/18 12/22/18 Trazodone HCl 50 mg PO HS 12/08/18 12/22/18 Buspirone HCl [Buspar] 30 mg PO DAILY 12/22/18 12/22/18 Gabapentin [Neurontin] 300 mg PO TID 12/22/18 12/22/18 Previous Rx's Medication Instructions Recorded Ipratropium/Albuterol Neb [Duoneb] 3 ml IH [id number] PRN #90 inhsol 09/17/18 Nicotine Patch [Nicoderm] 21 mg TD DAILY #30 patch.td24 12/09/18 levoFLOXacin [Levaquin] 500 mg PO DAILY #3 tablet 12/22/18 predniSONE [PredniSONE] 40 mg PO DAILY #10 tablet 12/22/18 Allergies Allergy/AdvReac Type Severity Reaction Status Date / Time No Known Allergies Allergy Verified 12/22/18 08:48 All systems ED: reviewed and negative except as stated. Review of Systems: As Per HPI Constitutional: Denies: fever, chills, weakness ENT ED: Denies: ear pain, congestion Cardiovascular: Reports: dyspnea on exertion, orthopnea. Denies: chest pain, palpitations, edema Respiratory: Reports: dyspnea. Denies: cough, wheezes Gastrointestinal: Denies: abdominal pain, nausea, vomiting, diarrhea Genitourinary: Denies: urgency, dysuria, frequency Musculoskeletal: Denies: back pain, neck pain Integumentary: Denies: rash Neurological: Denies: headache Psychiatric: Denies: anxiety, depression Endocrine: Denies: fatigue Past Medical History - Past Medical History Attestation: Yes The following information was validated with the patient. Source: patient Medical history: Reports: COPD, GERD, hypertension, liver disease, thyroid disease, TIA Surgical history: Reports: other Psychiatric history: Reports: anxiety, depression - Social History Smoking Status: Current every day smoker Smokeless Tobacco Status: No Alcohol use: Reports: heavy, recent Drug use: Reports: none Physical Exam - General Limitations: no limitations General appearance: alert - Head Head exam: atraumatic, normocephalic, normal inspection - Eye Eye exam: Present: normal appearance, PERRL, EOMI - ENT ENT exam: normal exam, normal oropharynx, mucous membranes moist - Neck Neck exam: Present: normal inspection, full ROM, trachea midline - Chest Chest inspection: Present: normal inspection, symmetric chest wall rise - Respiratory Respiratory exam: Present: normal lung sounds bilaterally - Cardiovascular Cardiovascular exam: Present: normal rhythm, tachycardia, normal heart sounds - Abdominal Exam Abdominal exam: Present: soft, Non-Tender, normal bowel sounds. Absent: tenderness, distention, guarding, rebound, rigidity, Phoenix's sign, Rovsing's sign, tenderness at McBurney's Point - Extremities Exam Extremities exam: Present: normal inspection, full ROM, normal capillary refill. Absent: tenderness - Back Exam Back exam: Present: normal inspection - Neurological Exam Neurological exam: Present: alert, oriented X3, CN II-XII intact, normal gait - Skin Skin exam: Present: warm, dry, intact, normal color Course Course Narrative: Patient seen and examined the time of arrival. See history of present illness. Patient is well known to our facility for COPD exacerbation noncompliance with her medications at home. Patient typically uses oxygen intermittently. She is denying any chest pain fevers or chills. She has no nausea vomiting or diarrhea. She has been short of breath. Denies any falls trauma or injury at this time. Patient is sitting upright in the bed leaning forward. She has continued to smoke. Lungs are auscultated with diminished breath sounds bilaterally in a joint wheezing. Heart is tachycardic. Abdomen is soft. She has no point tennis guarding rigidity. No pulsatile masses or lesions. Extremities otherwise normal. She has no signs of pitting edema or swelling. Patient has full range of motion of the upper and lower extremities. She is otherwise stable. Patient will be monitored here and treated for COPD exacerbation considering the context the presentation. Disposition be determined once the workup and treatment course has been established. Chest x- ray CBC chemistry troponin along with BNP will be collected here in the emergency department and steroids and breathing treatments will be ordered. Antibiotic regimen will be started as workup is completed. Patient is otherwise stable. - Reevaluation(s) Reevaluation #1: Patient does not have any acute source. She is still short of breath. Her tachycardia has not resolved. PE study will be collected this time and disposition determined. Patient is otherwise stable. Time: 14:30 Reevaluation #2: Patient is found a chronic bronchiolitis and bronchitis on exam. Reevaluation will be completed and then disposition determined Time: 16:04 Reevaluation #3: Patient was discussed and reviewed with the hospitalist Dr. Sosa. Detailed review the presentation was discussed. No other recommendations or concerns this time. Patient is otherwise currently stable and appropriately treated for bronchitis and COPD exacerbation. He monitored here in emergency department until the admission process is completed Time: 16:24 Vital Signs Temperature 99.4 F 01/17/19 12:05 Pulse Rate 133 01/17/19 12:05 Respiratory Rate 22 01/17/19 12:05 Blood Pressure 144/90 01/17/19 12:05 O2 Sat by Pulse Oximetry 100 01/17/19 12:05 Temperature 99.4 F 01/17/19 12:05 Pulse Rate 133 01/17/19 12:05 Respiratory Rate 20 01/17/19 13:12 Blood Pressure 144/90 01/17/19 12:05 O2 Sat by Pulse Oximetry 96 01/17/19 13:12 Oxygen Delivery Oxygen Delivery Nasal Cannula Shortness of Breath/Dyspnea - MDM Narrative Medical decision making narrative: COPD exacerbation, hypoxia, tachycardia, chronic bronchitis - Medical Records Medical records reviewed: Yes I reviewed the patient's medical records. - Lab Data Lab results reviewed: Yes I reviewed the patient's lab results. Result diagrams: 01/17/19 12:44 01/17/19 12:38 Lab Results 01/17/19 01/17/19 01/17/19 Range/Units 12:35 12:38 12:38 WBC (4.3-11.1) K/mcL RBC (3.82-4.97) M/mcL Hgb (11.5-15.4) g/dL Hct (35.3-44.9) % MCV (83.0-100.0) fL MCH (28.0-33.3) pg MCHC (31.6-35.5) g/dL RDW (11.5-14.5) % Plt Count (140-400) K/mcL MPV (9.4-12.4) fL Immature Gran % (0-4) % Seg Neutrophils % % Lymphocytes % % Monocytes % % Eosinophils % % Basophils % % Neutrophils # (1.6-8.9) K/mcL Lymphocytes # (0.6-4.6) K/mcL Monocytes # (0.0-1.3) K/mcL Eosinophils # (0.0-0.6) K/mcL Basophils # (0.0-0.2) K/mcL PT 9.9 (9.4-12.1) Seconds INR 0.9 APTT 31.5 (26.0-36.0) Seconds Sodium 135 L (136-145) mEq/L Potassium 4.0 (3.5-5.1) mEq/L Chloride 98 (98-107) mEq/L Carbon Dioxide 29 (23-29) mEq/L BUN 2 L (6-20) mg/dL Creatinine 0.33 L (0.60-1.20) mg/dL Est GFR ( Amer) > 60 (> 60) Est GFR (Non-Af Amer) > 60 (> 60) BUN/Creatinine Ratio 6 (6-26) Glucose 130 H (70-105) mg/dL Calculated Osmolality 278 L (280-300) Lactic Acid 1.6 (0.5-2.2) mmol/L Calcium 8.4 L (8.6-10.3) mg/dL Troponin I < 0.03 (< 0.04) ng/mL B-Natriuretic Peptide (Less than 100) pg/mL Specimen Rejected 01/17/19 01/17/19 01/17/19 Range/Units 12:38 12:38 12:44 WBC 10.1 (4.3-11.1) K/mcL RBC 3.65 L (3.82-4.97) M/mcL Hgb 11.4 L (11.5-15.4) g/dL Hct 36.3 (35.3-44.9) % MCV 99.5 D (83.0-100.0) fL MCH 31.2 (28.0-33.3) pg MCHC 31.4 L (31.6-35.5) g/dL RDW 15.8 H (11.5-14.5) % Plt Count 206 (140-400) K/mcL MPV 9.8 (9.4-12.4) fL Immature Gran % 0.6 (0-4) % Seg Neutrophils % 82.6 % Lymphocytes % 6.3 % Monocytes % 10.2 % Eosinophils % 0.2 % Basophils % 0.1 % Neutrophils # 8.4 (1.6-8.9) K/mcL Lymphocytes # 0.6 (0.6-4.6) K/mcL Monocytes # 1.0 (0.0-1.3) K/mcL Eosinophils # 0.0 (0.0-0.6) K/mcL Basophils # 0.0 (0.0-0.2) K/mcL PT (9.4-12.1) Seconds INR APTT (26.0-36.0) Seconds Sodium (136-145) mEq/L Potassium (3.5-5.1) mEq/L Chloride (98-107) mEq/L Carbon Dioxide (23-29) mEq/L BUN (6-20) mg/dL Creatinine (0.60-1.20) mg/dL Est GFR ( Amer) (> 60) Est GFR (Non-Af Amer) (> 60) BUN/Creatinine Ratio (6-26) Glucose (70-105) mg/dL Calculated Osmolality (280-300) Lactic Acid (0.5-2.2) mmol/L Calcium (8.6-10.3) mg/dL Troponin I (< 0.04) ng/mL B-Natriuretic Peptide 64 (Less than 100) pg/mL Specimen Rejected MCV Delta 01/17/19 Range/Units 14:28 WBC (4.3-11.1) K/mcL RBC (3.82-4.97) M/mcL Hgb (11.5-15.4) g/dL Hct (35.3-44.9) % MCV (83.0-100.0) fL MCH (28.0-33.3) pg MCHC (31.6-35.5) g/dL RDW (11.5-14.5) % Plt Count (140-400) K/mcL MPV (9.4-12.4) fL Immature Gran % (0-4) % Seg Neutrophils % % Lymphocytes % % Monocytes % % Eosinophils % % Basophils % % Neutrophils # (1.6-8.9) K/mcL Lymphocytes # (0.6-4.6) K/mcL Monocytes # (0.0-1.3) K/mcL Eosinophils # (0.0-0.6) K/mcL Basophils # (0.0-0.2) K/mcL PT (9.4-12.1) Seconds INR APTT (26.0-36.0) Seconds Sodium (136-145) mEq/L Potassium (3.5-5.1) mEq/L Chloride (98-107) mEq/L Carbon Dioxide (23-29) mEq/L BUN (6-20) mg/dL Creatinine (0.60-1.20) mg/dL Est GFR ( Amer) (> 60) Est GFR (Non-Af Amer) (> 60) BUN/Creatinine Ratio (6-26) Glucose (70-105) mg/dL Calculated Osmolality (280-300) Lactic Acid 1.8 (0.5-2.2) mmol/L Calcium (8.6-10.3) mg/dL Troponin I (< 0.04) ng/mL B-Natriuretic Peptide (Less than 100) pg/mL Specimen Rejected - Radiology Data Radiology results reviewed: Yes I reviewed the patient's radiology results. Chest x-ray is unremarkable. CT angiography confirms chronic bronchiolitis and bronchitis. - EKG Data EKG attestation: Yes I reviewed and interpreted this EKG. EKG results narrative: EKG shows sinus tachycardia. Heart rate of 131. [place] interval 163. QRS duration of 79. QTC of 4:30. QRS duration of 74. [place] is normal. Patient is otherwise clinically stable. No acute signs of WPW or Brugada syndrome. No acute signs of ST segment elevation or abnormality. EKG from 12/20/18 shows iden tical morphology except for tachycardia.
[2019-01-17] MEDS ORDERED: Albuterol 2.5 MG/3 ML NEBULIZER IH ONE (16:26)
[2019-01-17] MEDS ORDERED: Naloxone 0.4 MG/ML INJ IVP PRN (16:50)
[2019-01-17] MEDS ORDERED: *HR* LORazepam 2 MG/ML VIAL IVP PRN ×3 (17:19)
--- NOTE | 2019-01-17 17:41 | Internal Med History&Physical ---
Date of Encounter: 01/17/19 Time of Encounter: 17:00 Internal Medicine - H&P: HPI Chief complaint: Shortness of breath and COPD exacerbation History of present illness: Ms. Rodriguez is a 58 year old female with pmh of COPD, alcohol abuse, hypertension, liver disease presenting with complaints of shortness of breath of 4 days duration. pt has COPD and is chronically non compliant and was recently discharged from the hospital about a month ago. Patient complains of persistent coughing,productive of green phlegm for the last 4 days with severe shortness of breath. She denies any chest pain, fever or chills.She admits tp cpntonued smoking and says she drinks up to 6 bottles of alcohol a day. She came to the ER worsening shortness of breath In the ER, she got a breathing treatment and streorids and she is being admitted for further management Past Med Surg Social Fam HX - Past Medical History Medical history: COPD, GERD, hypertension, liver disease, thyroid disease, TIA Additional medical history: depression, back pain, chest pain, headache Psychiatric history: anxiety, depression - Past Surgical History Surgical History: other Additional surgical history: D&C - Social History Smoking Status: Current every day smoker Smokeless Tobacco Status: No Alcohol use: heavy, recent Drug use: none - Family History Brother Adopted: No Living Status: Hx Family Cancer: Yes (Lung) Mother Living Status: Hx Family Cardiac Disorders: No Hx Family Respiratory Disorders: Yes (asthma) Hx Family Cancer: Yes (breast) Internal Medicine - H&P: Meds Escitalopram [Lexapro] 10 mg PO DAILY 12/30/17 [History] Cetirizine HCl [24Hour Allergy] 10 mg PO DAILY 09/14/18 [History] Levothyroxine Sodium [Tirosint] 25 mcg PO QAM 09/14/18 [History] Meloxicam [Mobic] 15 mg PO DAILY 09/14/18 [History] Omeprazole [PriLOSEC] 40 mg PO DAILY 09/14/18 [History] Ipratropium/Albuterol Neb [Duoneb] 3 ml IH [id number] PRN #90 inhsol 09/17/18 [Rx] Guaifenesin [Mucinex] 600 mg PO Q12HR PRN 12/07/18 [History] hydrOXYzine HCl [Hydroxyzine HCl] 25 mg PO TID PRN 12/07/18 [History] Fluticasone Propionate Nasal [Flonase] 1 spr NS DAILY 12/08/18 [History] Fluticasone/Umeclidin/Vilanter [Trelegy Ellipta 100-62.5-25] 1 puff IH DAILY [History] Mirtazapine 7.5 mg PO HS 12/08/18 [History] Trazodone HCl 50 mg PO HS 12/08/18 [History] Nicotine Patch [Nicoderm] 21 mg TD DAILY #30 patch.td24 12/09/18 [Rx] Buspirone HCl [Buspar] 30 mg PO DAILY 12/22/18 [History] Gabapentin [Neurontin] 300 mg PO TID 12/22/18 [History] levoFLOXacin [Levaquin] 500 mg PO DAILY #3 tablet 12/22/18 [Rx] predniSONE [PredniSONE] 40 mg PO DAILY #10 tablet 12/22/18 [Rx] Allergy/AdvReac Type Severity Reaction Status Date / Time No Known Allergies Allergy Verified 12/22/18 08:48 All Systems PM: A 10-system review of systems was performed and is negative for pertinent findings except as documented above in the HPI. - Constitutional Constitutional: no chills, no fever(s), no night sweats - EENT Eyes: no change in vision, no discharge, no pain, no photophobia Ears: no ear discharge, no ear pain, no tinnitus Nose, mouth and throat: no dysphagia, no nasal discharge, no neck pain, no sore throat - Cardiovascular Cardiovascular ROS IM: dyspnea, dyspnea on exertion, no chest pain, no diaphoresis, no lightheadedness, no palpitations, no syncope - Respiratory Respiratory: cough, dyspnea, wheezing, excessive phlegm production - Gastrointestinal Gastrointestinal: no abdominal pain, no diarrhea, no hematemesis, no hematochezia, no melena, no nausea, no vomiting - Genitourinary Genitourinary: no change in urinary stream, no dysuria, no flank pain, no hematuria - Musculoskeletal Musculoskeletal ROS IM: no numbness, no tingling - Integumentary Integumentary IM: no rash, no unusual bruising - Neurological Neurological ROS: no confusion, no convulsions, no focal weakness, no numbness, no tingling, no tremor(s) - Hematologic/Lymphatic Hematologic/Lymphatic: no easy bruising - Constitutional Vitals: Temp Pulse Resp BP Pulse Ox 99.4 F 133 16 144/90 96 01/17/19 12:05 01/17/19 12:05 01/17/19 17:15 01/17/19 12:05 01/17/19 17:15 Exam: Pt is in moderate respiratory distress. tripoding Cachectic - Head Head exam: Present: atraumatic, normocephalic - Eye Eye exam: Present: PERRL, conjuntiva pink, sclera anicteric Pupils: Present: PERRL - Neck Neck exam general surgery: Present: supple, trachea midline. Absent: lymphadenopathy - Respiratory Respiratory exam: Present: prolonged expiratory phase, respiratory distress, wheezes. Absent: accessory muscle use, rales, rhonchi - Cardiovascular Cardiovascular exam: Present: RRR, +S1, +S2. Absent: diastolic murmur, gallop, rubs, systolic murmur - GI/Abdominal GI/Abdominal exam: Present: normal bowel sounds, soft, no peritoneal signs. Absent: distended, tenderness - Extremities Exam Extremities exam: Present: warm, radial pulses palpable and symmetrical. Absent: calf tenderness, cyanotic, pedal edema - Neurological Exam Neurological exam: Present: CN II-XII intact, oriented X3, no focal deficits. Absent: pronater drift, facial droop, speech deficit - Skin Skin exam: Present: dry, intact Internal Med - H&P Results - Labs CBC & Chem 7: 01/17/19 12:44 01/17/19 12:38 Labs: Short CBC 01/17/19 Range/Units 12:44 WBC 10.1 (4.3-11.1) K/mcL Hgb 11.4 L (11.5-15.4) g/dL Hct 36.3 (35.3-44.9) % Plt Count 206 (140-400) K/mcL Neutrophils # 8.4 (1.6-8.9) K/mcL BMP 01/17/19 12:38 Sodium 135 L Potassium 4.0 Chloride 98 Carbon Dioxide 29 BUN 2 L Creatinine 0.33 L Glucose 130 H Calcium 8.4 L Cardiac Enzymes 01/17/19 Range/Units 12:38 Troponin I < 0.03 (< 0.04) ng/mL - Impressions ITS Impressions Chest X-Ray 01/17/19 12:16 IMPRESSION: Stable exam without evidence for acute cardiopulmonary process. COPD. D/ / Chris Tong MD / Chris Tong MD Interpreting Provider: Chris Tong MD Chest CTA 01/17/19 14:42 IMPRESSION: 1. Acute on chronic bilateral bronchiolitis. 2. Chronic bronchitis. D/ / Anatoly Merino MD / Anatoly Merino MD Interpreting Provider: Anatoly Merino MD - Assessment and Plan (1) Acute exacerbation of chronic obstructive pulmonary disease (COPD) Current Visit: Yes Status: Acute Assessment and plan: Pt comes in with shortness of breath, wheezing and coughing productive of green phlegm for 4 days Will start on Iv steroids, antibiotics and scheduled nebs round the clock Obtain ABG and place on BIPAP as needed (2) Bronchiolitis Current Visit: Yes Status: Acute Assessment and plan: Obtain viral respiratory panel Continue supportive management as above (3) Alcohol abuse Current Visit: Yes Status: Acute Assessment and plan: Admits to consume 6 bottles of alcohol per day Start on CIWA protocol (4) Hypothyroidism Current Visit: Yes Status: Acute Assessment and plan: Continue levothyroxine Qualifiers: Qualified Code(s): E03.9 - Hypothyroidism, unspecified (5) DVT prophylaxis Current Visit: Yes Status: Acute Assessment and plan: heparin sc - Time Spent With Patient Total time spent is greater than 50% in coordination of care (as documented) at patient's floor/unit and/or counseling patient:
[2019-01-17 19:24] LABS: ABG Base Excess 1 mEq/L (-2 to 3); ABG HCO3 27 mEq/L (21-27); ABG Oxygen Saturation 96 % (95-98); ABG PCO2 48 mmHg (35-45); ABG PH 7.36 pH Units (7.32-7.45); ABG PO2 89 mmHg (85-104); ABG TCO2 28 mEq/L (20-26)
[2019-01-17 19:56] LABS: Adenovirus Not Detected (Not Detect); Bordetella Pertussis Not Detected (Not Detect); Chlamydophila pneumoniae Not Detected (Not Detect); Coronavirus 229E Not Detected (Not Detect); Coronavirus HKU1 Not Detected (Not Detect); Coronavirus NL63 Not Detected (Not Detect); Coronavirus OC43 Not Detected (Not Detect); Human Metapneumovirus Not Detected (Not Detect); Human Rhinovirus/Enterovirus Not Detected (Not Detect); Influenza A Subtype 2009 H1 Not Detected (Not Detect); Influenza A Untypeable Not Detected (Not Detect); Influenza B Not Detected (Not Detect); Mycoplasma pneumoniae Not Detected (Not Detect); Parainfluenza Virus 1 Not Detected (Not Detect); Parainfluenza Virus 2 Not Detected (Not Detect); Parainfluenza Virus 3 DETECTED (Not Detect); Parainfluenza Virus 4 Not Detected (Not Detect); Respiratory Syncytial Virus Not Detected (Not Detect)
[2019-01-17] MEDS: Ipratropium/Albuterol Neb 3 ML IH SCH ×2 (20:04→23:46)
[2019-01-17] MEDS: Budesonide/Formoterol 160/4.5 1 PUFF INH IH SCH (20:04)
[2019-01-17] MEDS: Thiamine (B-1) 100 MG, Folic Acid 1 MG, MVI, adult with vitamin K 10 ML in 0.9 % Sodi... IVPB SCH (20:56)
[2019-01-17] MEDS: GuaiFENesin Liq 200 MG/10 ML UDC PO PRN (21:10)
[2019-01-17] MEDS: tiZANidine 4 MG TABLET PO PRN (22:39)
[2019-01-18] MEDS: methylPREDNISolone 125 MG/2 ML VIAL IVP SCH ×3 (00:10→16:42)
[2019-01-18] MEDS: Ipratropium/Albuterol Neb 3 ML IH SCH ×5 (03:36→19:34)
[2019-01-18] MEDS: GuaiFENesin Liq 200 MG/10 ML UDC PO PRN ×2 (04:40→12:43)
[2019-01-18 05:03] LABS: Hematocrit 32.7 % (35.3-44.9); Hemoglobin 10.3 g/dL (11.5-15.4); Immature Granulocytes % 0.7 % (0-4); Lymphocytes # 0.3 K/mcL (0.6-4.6); Mean Corpuscular HGB Conc 31.5 g/dL (31.6-35.5); Mean Corpuscular Hemoglobin 31.1 pg (28.0-33.3); Mean Corpuscular Volume 98.8 fL (83.0-100.0); Mean Platelet Volume 10.4 fL (9.4-12.4); Monocytes # 0.2 K/mcL (0.0-1.3); Monocytes % 2.6 %; Neutrophils # 6.7 K/mcL (1.6-8.9); Platelet Count 179 K/mcL (140-400); Red Blood Count 3.31 M/mcL (3.82-4.97); Red Cell Distribution Width 15.6 % (11.5-14.5); Segmented Neutrophils % 92.7 %
[2019-01-18 05:20] LABS: BUN/Creatinine Ratio 9 (6-26); Blood Urea Nitrogen 3 mg/dL (6-20); Calcium 7.7 mg/dL (8.6-10.3); Carbon Dioxide 26 mEq/L (23-29); Chloride 93 mEq/L (98-107); Glucose 196 mg/dL (70-105); Osmolality,Calculated 274 (280-300); Phosphorous 2.6 mg/dL (2.7-4.5); Potassium 3.5 mEq/L (3.5-5.1); Sodium 131 mEq/L (136-145); eGFR For Non-African Americans > 60 (> 60)
[2019-01-18 05:37] LABS: Magnesium 1.4 mg/dL (1.6-2.6)
[2019-01-18] MEDS: Levothyroxine 25 MCG TABLET PO SCH (05:54)
[2019-01-18] MEDS: Budesonide/Formoterol 160/4.5 1 PUFF INH IH SCH ×2 (07:21→19:34)
[2019-01-18] MEDS: Vitamin B Complex/Vit C/Vit E 1 EACH TABLET PO SCH (08:49)
[2019-01-18] MEDS: Folic Acid 1 MG TABLET PO SCH (08:49)
[2019-01-18] MEDS: tiZANidine 4 MG TABLET PO PRN ×2 (08:49→17:59)
[2019-01-18] MEDS: cefTRIAXone 1,000 MG in Water for inj. (sterile) 20 ML 10 ML IVP SCH (08:50)
[2019-01-18] MEDS ORDERED: hydrOXYzine pamoate 25 MG CAPSULE PO PRN (10:30)
[2019-01-18] MEDS: Azithromycin 500 MG in D5% in Water 250 ML IVPB SCH (12:43)
[2019-01-18] MEDS: Ondansetron ODT 4 MG TAB.RAPDIS SL PRN (14:39)
[2019-01-18] MEDS: Gabapentin 300 MG CAPSULE PO SCH ×2 (14:39→20:08)
--- NOTE | 2019-01-18 14:46 | Internal Med Progress Note ---
Hospitalist Progress Note - Encounter Date of Encounter: 01/18/19 Time of Encounter: 09:00 - Subjective Interval History: Patient was seen and examined bedside. Patient is still complaining about motor shortness of breath, dyspnea on exertion she still have cough with greenish expectoration she denied any active chest pain. - Exam Vitals: Temp Pulse Resp BP Pulse Ox 99.2 F 107 17 135/82 98 01/18/19 12:01 01/18/19 12:01 01/18/19 12:01 01/18/19 12:01/18/19 12:01 Exam: Gen: Alert, awake, Oriented to time,place and person Chest: Diminished breath sounds B/L, Moderate wheezing, No crackles, No rales Heart: S1S2+ RRR No murmurs Abd: Soft, NT, BS +, No organomegaly Ext: No edema, pulses are palpable, No calf tenderness Neuro : Benign findings Skin: No rash. - Assessment and Plan (1) Acute exacerbation of chronic obstructive pulmonary disease (COPD) Current Visit: Yes Status: Acute Assessment and Plan: Improving start tapering steroids her Resp viral panel came back as positive for para influenza cont empirical abx cont frequent bronchodilator therapy continue oxygen (2) Bronchiolitis Current Visit: Yes Status: Acute Assessment and Plan: viral respiratory panel came back as positive for Parainfluenza Continue supportive management as above (3) Alcohol abuse Current Visit: Yes Status: Acute Assessment and Plan: Admits to consume 6 bottles of alcohol per day cont on CIWA protocol on Ativan PRN (4) Hypothyroidism Current Visit: Yes Status: Acute Assessment and Plan: Continue levothyroxine (5) DVT prophylaxis Current Visit: Yes Status: Acute Assessment and Plan: heparin sc (6) Tobacco dependence Current Visit: No Status: Chronic Assessment and Plan: Counseled to quit smoking placed on nicotine patch - Time Spent with Patient Total time spent is greater than 50% in coordination of care (as documented) at patient's floor/unit and/or counseling patient: Internal Medicine: Result - Labs CBC & Chem 7: 01/18/19 04:23 01/18/19 04:23 Labs: Short CBC 01/18/19 Range/Units 04:23 WBC 7.3 (4.3-11.1) K/mcL Hgb 10.3 L (11.5-15.4) g/dL Hct 32.7 L (35.3-44.9) % Plt Count 179 (140-400) K/mcL Neutrophils # 6.7 (1.6-8.9) K/mcL BMP 01/18/19 04:23 Sodium 131 L Potassium 3.5 Chloride 93 L Carbon Dioxide 26 BUN 3 L Creatinine 0.33 L Glucose 196 H Calcium 7.7 L - ABG Interpretation ABG results: ABG ABG pH 7.36 pH Units (7.32-7.45) 01/17/19 19:21 ABG pCO2 48 mmHg (35-45) H 01/17/19 19:21 ABG pO2 89 mmHg (85-104) 01/17/19 19:21 ABG O2 Saturation 96 % (95-98) 01/17/19 19:21 PT/INR, D-dimer PT 9.9 Seconds (9.4-12.1) 01/17/19 12:38 - Impressions Impressions Chest CTA 01/17/19 14:42 IMPRESSION: 1. Acute on chronic bilateral bronchiolitis. 2. Chronic bronchitis. D/ / Anatoly Merino MD / Anatoly Merino MD Interpreting Provider: Anatoly Merino MD Consult Discharge Plan - Plan Referrals: Terrie Joseph, ELEMENTARY ESL TEACHER [Primary Care Provider] - _ (4) Hypothyroidism Qualifiers: Qualified Code(s): E03.9 - Hypothyroidism, unspecified
[2019-01-18] MEDS: Nicotine 21 MG PATCH.TD24 TD SCH (16:42)
[2019-01-18] MEDS: Thiamine (B-1) 100 MG, Folic Acid 1 MG, MVI, adult with vitamin K 10 ML in 0.9 % Sodi... IVPB SCH (16:43)
[2019-01-18] MEDS: traZODone 50 MG TABLET PO SCH (20:08)
[2019-01-18] MEDS: Mirtazapine 15 MG TABLET PO SCH (20:08)
[2019-01-18] MEDS ORDERED: Budesonide/Formoterol 160/4.5 1 PUFF INH IH SCH (22:00)
[2019-01-19] MEDS: Ipratropium/Albuterol Neb 3 ML IH SCH ×6 (00:05→20:10)
[2019-01-19] MEDS: methylPREDNISolone 125 MG/2 ML VIAL IVP SCH ×3 (00:15→17:06)
[2019-01-19] MEDS: tiZANidine 4 MG TABLET PO PRN ×2 (02:09→15:52)
[2019-01-19] MEDS: Levothyroxine 25 MCG TABLET PO SCH (05:28)
[2019-01-19] MEDS: Budesonide/Formoterol 160/4.5 1 PUFF INH IH SCH ×2 (07:31→20:10)
[2019-01-19] MEDS: Nicotine 21 MG PATCH.TD24 TD SCH (08:15)
[2019-01-19] MEDS: Vitamin B Complex/Vit C/Vit E 1 EACH TABLET PO SCH (08:16)
[2019-01-19] MEDS: Folic Acid 1 MG TABLET PO SCH (08:16)
[2019-01-19] MEDS: Gabapentin 300 MG CAPSULE PO SCH ×3 (08:16→21:47)
[2019-01-19] MEDS: cefTRIAXone 1,000 MG in Water for inj. (sterile) 20 ML 10 ML IVP SCH (08:17)
[2019-01-19] MEDS: Loratadine 10 MG TABLET PO SCH (08:17)
[2019-01-19] MEDS: Fluticasone Propionate Nasal 50 MCG/SPRAY BOTTLE NS SCH (08:17)
--- NOTE | 2019-01-19 11:27 | Internal Med Progress Note ---
Hospitalist Progress Note - Encounter Date of Encounter: 01/19/19 Time of Encounter: 10:00 - Subjective Interval History: Ms. Rodriguez is a 58 year old female with known PMH of COPD, alcohol dependence, tobacco dependence, hypertension, and chronic hypoxic respiratory failure presented to ER with complaints of progressively worsening shortness of breath and cough with expectoration. She is known advanced COPD, very non compliant pt who had multiple hospitalization within last one month. She was admitted in the hospital and started on high-dose IV steroids and empirical antibiotic. She is still complaining severe shortness of breath and dyspnea on exertion. Still have cough with greenish expectoration. Her resp viral panel came back as positive for para influenza. - Exam Vitals: Temp Pulse Resp BP Pulse Ox 97.7 F 98 16 151/84 100 01/19/19 06:35 01/19/19 06:35 01/19/19 07:31 01/19/19 06:35 01/19/19 07:31 Exam: Gen: Alert, awake, Oriented to time,place and person Chest: Diminished breath sounds B/L, Moderate to severe wheezing, No crackles, No rales Heart: S1S2+ RRR No murmurs Abd: Soft, NT, BS +, No organomegaly Ext: No edema, pulses are palpable, No calf tenderness Neuro : Benign findings Skin: No rash. - Assessment and Plan (1) Acute exacerbation of chronic obstructive pulmonary disease (COPD) Current Visit: Yes Status: Acute Assessment and Plan: Slowly improving Still has diffuse wheezing Cont IV Solumedrol 40mg Q8hr Her Resp viral panel came back as positive for para influenza cont empirical abx cont frequent bronchodilators therapy continue oxygen Since pt has multiple hospitalizations in last one month and still have diffuse wheezing and severe SOB, she does need close monitoring and higher level of care for more than 3 nights, so will change her to full admission today. (2) Bronchiolitis Current Visit: Yes Status: Acute Assessment and Plan: viral respiratory panel came back as positive for Parainfluenza Continue supportive management as above (3) Alcohol abuse Current Visit: Yes Status: Acute Assessment and Plan: Admits to consume 6 bottles of alcohol per day cont on CIWA protocol on Ativan PRN (4) Hypothyroidism Current Visit: Yes Status: Acute Assessment and Plan: Continue levothyroxine (5) DVT prophylaxis Current Visit: Yes Status: Acute Assessment and Plan: heparin sc (6) Tobacco dependence Current Visit: No Status: Chronic Assessment and Plan: Counseled to quit smoking placed on nicotine patch - Time Spent with Patient Total time spent is greater than 50% in coordination of care (as documented) at patient's floor/unit and/or counseling patient: Internal Medicine: Result - Labs CBC & Chem 7: 01/18/19 04:23 01/18/19 04:23 - ABG Interpretation ABG results: ABG ABG pH 7.36 pH Units (7.32-7.45) 01/17/19 19:21 ABG pCO2 48 mmHg (35-45) H 01/17/19 19:21 ABG pO2 89 mmHg (85-104) 01/17/19 19:21 ABG O2 Saturation 96 % (95-98) 01/17/19 19:21 PT/INR, D-dimer PT 9.9 Seconds (9.4-12.1) 01/17/19 12:38 Consult Discharge Plan - Plan Referrals: Terrie Joseph, PUBLIC RELATIONS SUPERVISOR [Primary Care Provider] - ___ (4) Hypothyroidism Qualifiers: Qualified Code(s): E03.9 - Hypothyroidism, unspecified
[2019-01-19] MEDS: Acetaminophen 325 MG TABLET PO PRN (17:37)
[2019-01-19] MEDS: Azithromycin 250 MG TABLET PO SCH (17:37)
[2019-01-19] MEDS: *HR* Heparin 5,000 UNIT/ML VIAL SQ SCH (17:38)
[2019-01-19] MEDS ORDERED: Pseudoephedrine Oral Soln 30 MG/5 ML UDC PO PRN (20:47)
[2019-01-19] MEDS: traZODone 50 MG TABLET PO SCH (21:46)
[2019-01-19] MEDS: Mirtazapine 15 MG TABLET PO SCH (21:46)
[2019-01-19] MEDS: Thiamine (B-1) 100 MG, Folic Acid 1 MG, MVI, adult with vitamin K 10 ML in 0.9 % Sodi... IVPB SCH (23:09)
[2019-01-20] MEDS: Ipratropium/Albuterol Neb 3 ML IH SCH ×7 (00:12→23:26)
[2019-01-20] MEDS: tiZANidine 4 MG TABLET PO PRN ×2 (00:46→20:10)
[2019-01-20] MEDS: Ondansetron ODT 4 MG TAB.RAPDIS SL PRN ×2 (00:46→16:49)
[2019-01-20] MEDS: methylPREDNISolone 125 MG/2 ML VIAL IVP SCH ×3 (00:47→15:35)
[2019-01-20] MEDS: *HR* Heparin 5,000 UNIT/ML VIAL SQ SCH ×2 (06:26→16:41)
[2019-01-20] MEDS: Levothyroxine 25 MCG TABLET PO SCH (06:28)
[2019-01-20] MEDS: Budesonide/Formoterol 160/4.5 1 PUFF INH IH SCH ×2 (07:36→19:56)
[2019-01-20] MEDS: Azithromycin 250 MG TABLET PO SCH (08:38)
[2019-01-20] MEDS: Loratadine 10 MG TABLET PO SCH (08:38)
[2019-01-20] MEDS: Vitamin B Complex/Vit C/Vit E 1 EACH TABLET PO SCH (08:38)
[2019-01-20] MEDS: Nicotine 21 MG PATCH.TD24 TD SCH (08:38)
[2019-01-20] MEDS: Folic Acid 1 MG TABLET PO SCH (08:38)
[2019-01-20] MEDS: Gabapentin 300 MG CAPSULE PO SCH ×3 (08:38→20:10)
[2019-01-20] MEDS: Fluticasone Propionate Nasal 50 MCG/SPRAY BOTTLE NS SCH (08:39)
[2019-01-20] MEDS: cefTRIAXone 1,000 MG in Water for inj. (sterile) 20 ML 10 ML IVP SCH (08:39)
[2019-01-20] MEDS: Azithromycin 500 MG in D5% in Water 250 ML IVPB SCH (09:57)
--- NOTE | 2019-01-20 15:44 | Internal Med Progress Note ---
Hospitalist Progress Note - Encounter Date of Encounter: 01/20/19 Time of Encounter: 15:41 - Subjective Interval History: Ms. Rodriguez is a 58 year old female with known PMH of COPD, alcohol dependence, tobacco dependence, hypertension, and chronic hypoxic respiratory failure presented to ER with complaints of progressively worsening shortness of breath and cough with expectoration. She is known advanced COPD, very non compliant pt who had multiple hospitalization within last one month. She was admitted in the hospital and started on high-dose IV steroids and empirical antibiotic. Her resp viral panel came back as positive for para influenza. Patient stated she is feeling little better today . Still complaining moderate shortness of breath and dyspnea on exertion. Still have cough with greenish expectoration. She had fever y/d T max- 100.3 - Exam Vitals: Temp Pulse Resp BP Pulse Ox 99.5 F 113 16 171/94 100 01/20/19 14:45 01/20/19 14:45 01/20/19 14:45 01/20/19 14:45 01/20/19 14:45 Exam: Gen: Alert, awake, Oriented to time,place and person Chest: Diminished breath sounds B/L, Moderate to severe wheezing, No crackles, No rales Heart: S1S2+ RRR No murmurs Abd: Soft, NT, BS +, No organomegaly Ext: No edema, pulses are palpable, No calf tenderness Neuro : Benign findings Skin: No rash. - Assessment and Plan (1) Acute exacerbation of chronic obstructive pulmonary disease (COPD) Current Visit: Yes Status: Acute Assessment and Plan: Slowly improving Cont IV Solumedrol 40mg Q12hr Her Resp viral panel came back as positive for para influenza cont empirical abx cont frequent bronchodilators therapy continue oxygen (2) Bronchiolitis Current Visit: Yes Status: Acute Assessment and Plan: viral respiratory panel came back as positive for Parainfluenza Continue supportive management as above (3) Alcohol abuse Current Visit: Yes Status: Acute Assessment and Plan: Admits to consume 6 bottles of alcohol per day cont on CIWA protocol on Ativan PRN (4) Hypothyroidism Current Visit: Yes Status: Acute Assessment and Plan: Continue levothyroxine (5) DVT prophylaxis Current Visit: Yes Status: Acute Assessment and Plan: heparin sc (6) Tobacco dependence Current Visit: No Status: Chronic Assessment and Plan: Counseled to quit smoking placed on nicotine patch (7) Sinus tachycardia Current Visit: Yes Status: Acute Assessment and Plan: due to resp distress cont on tele changed neb treatment to Xopenox started her on Metoprolol (8) Hypertension Current Visit: No Status: Chronic Assessment and Plan: started on Metoprolol and Norvasc on IV hydralazine PRN - Time Spent with Patient Total time spent is greater than 50% in coordination of care (as documented) at patient's floor/unit and/or counseling patient: Internal Medicine: Result - Labs CBC & Chem 7: 01/18/19 04:23 01/18/19 04:23 - ABG Interpretation ABG results: ABG ABG pH 7.36 pH Units (7.32-7.45) 01/17/19 19:21 ABG pCO2 48 mmHg (35-45) H 01/17/19 19:21 ABG pO2 89 mmHg (85-104) 01/17/19 19:21 ABG O2 Saturation 96 % (95-98) 01/17/19 19:21 PT/INR, D-dimer PT 9.9 Seconds (9.4-12.1) 01/17/19 12:38 Consult Discharge Plan - Plan Referrals: Terrie Joseph, REGULATORY AFFAIRS ASSOCIATE [Primary Care Provider] - (Appointment has been requested. Our offices will call with an appointment time and date.) (4) Hypothyroidism Qualifiers: Qualified Code(s): E03.9 - Hypothyroidism, unspecified (8) Hypertension Qualifiers: Hypertension type: essential hypertension Qualified Code(s): I10 - Essential (primary) hypertension
[2019-01-20] MEDS: MethylPREDNISolone 40 MG/ML VIAL IVP SCH (16:34)
[2019-01-20] MEDS: amLODIPine 5 MG TABLET PO SCH (16:41)
[2019-01-20] MEDS: Mirtazapine 15 MG TABLET PO SCH (20:10)
[2019-01-20] MEDS: traZODone 50 MG TABLET PO SCH (20:10)
[2019-01-21] MEDS: Acetaminophen 325 MG TABLET PO PRN (00:34)
[2019-01-21] MEDS: Ipratropium/Albuterol Neb 3 ML IH SCH ×3 (03:49→11:27)
[2019-01-21 04:07] LABS: Basophils % 0.2 %; Hemoglobin 9.6 g/dL (11.5-15.4); Immature Granulocytes % 1.5 % (0-4); Lymphocytes # 0.9 K/mcL (0.6-4.6); Lymphocytes % 7.7 %; Mean Corpuscular Hemoglobin 30.9 pg (28.0-33.3); Mean Corpuscular Volume 96.5 fL (83.0-100.0); Mean Platelet Volume 10.5 fL (9.4-12.4); Monocytes # 0.7 K/mcL (0.0-1.3); Monocytes % 6.1 %; Neutrophils # 9.9 K/mcL (1.6-8.9); Platelet Count 168 K/mcL (140-400); Red Blood Count 3.11 M/mcL (3.82-4.97); Red Cell Distribution Width 15.5 % (11.5-14.5); Segmented Neutrophils % 84.5 %
[2019-01-21 04:30] LABS: BUN/Creatinine Ratio 17 (6-26); Blood Urea Nitrogen 6 mg/dL (6-20); Calcium 8.1 mg/dL (8.6-10.3); Carbon Dioxide 33 mEq/L (23-29); Chloride 89 mEq/L (98-107); Glucose 141 mg/dL (70-105); Magnesium 1.3 mg/dL (1.6-2.6); Osmolality,Calculated 274 (280-300); Potassium 3.8 mEq/L (3.5-5.1); Sodium 132 mEq/L (136-145); eGFR For Non-African Americans > 60 (> 60)
[2019-01-21] MEDS: MethylPREDNISolone 40 MG/ML VIAL IVP SCH (05:34)
[2019-01-21] MEDS: *HR* Heparin 5,000 UNIT/ML VIAL SQ SCH ×2 (05:36→16:43)
[2019-01-21] MEDS: Levothyroxine 25 MCG TABLET PO SCH (05:39)
[2019-01-21] MEDS: Budesonide/Formoterol 160/4.5 1 PUFF INH IH SCH ×2 (07:19→21:31)
[2019-01-21] MEDS: cefTRIAXone 1,000 MG in Water for inj. (sterile) 20 ML 10 ML IVP SCH (09:57)
--- NOTE | 2019-01-21 10:05 | Internal Med Progress Note ---
Hospitalist Progress Note - Encounter Date of Encounter: 01/21/19 Time of Encounter: 10:05 - Subjective Interval History: Patient was seen and examined at bedside currently does not appear to be in any respiratory distress however patient states that she finds it difficult to breathe this time. Nursing staff reports that patient has lost IV's access-dis cussed with patient and she is willing to attempt a power line. In the meantime we will convert medications to oral equivalents - Exam Vitals: Temp Pulse Resp BP Pulse Ox 98.4 F 113 16 144/84 96 01/21/19 07:58 01/21/19 07:58 01/21/19 07:58 01/21/19 07:58 01/21/19 07:58 Exam: Gen: Alert, awake, Oriented to time,place and person Chest: Diminished breath sounds B/L, Moderate to severe wheezing, No crackles, No rales Heart: S1S2+ RRR No murmurs Abd: Soft, NT, BS +, No organomegaly Ext: No edema, pulses are palpable, No calf tenderness Neuro : Benign findings Skin: No rash. - Assessment and Plan (1) Hypertension Current Visit: No Status: Chronic Assessment and Plan: started on Metoprolol and Norvasc on IV hydralazine PRN (2) Tobacco dependence Current Visit: No Status: Chronic Assessment and Plan: Counseled to quit smoking placed on nicotine patch (3) Acute exacerbation of chronic obstructive pulmonary disease (COPD) Current Visit: Yes Status: Acute Assessment and Plan: Slowly improving Cont IV Solumedrol 40mg [id number] has lost IV access we will place on redness and 40 mg twice a day for now Her Resp viral panel came back as positive for para influenza cont empirical abx cont frequent bronchodilators therapy-he has been tachycardiac with breathing treatments we will place on Xopenex continue oxygen (4) DVT prophylaxis Current Visit: Yes Status: Acute Assessment and Plan: heparin sc (5) Bronchiolitis Current Visit: Yes Status: Acute Assessment and Plan: viral respiratory panel came back as positive for Parainfluenza Continue supportive management as above (6) Alcohol abuse Current Visit: Yes Status: Acute Assessment and Plan: Admits to consume 6 bottles of alcohol per day cont on CIWA protocol on Ativan PRN (7) Hypothyroidism Current Visit: Yes Status: Acute Assessment and Plan: Continue levothyroxine (8) Sinus tachycardia Current Visit: Yes Status: Acute Assessment and Plan: due to resp distress cont on tele changed neb treatment to Xopenox started her on Metoprolol - Time Spent with Patient Total time spent is greater than 50% in coordination of care (as documented) at patient's floor/unit and/or counseling patient: Internal Medicine: Result - Labs CBC & Chem 7: 01/21/19 03:33 01/21/19 03:33 Labs: Short CBC 01/21/19 Range/Units 03:33 WBC 11.7 H D (4.3-11.1) K/mcL Hgb 9.6 L (11.5-15.4) g/dL Hct 30.0 L (35.3-44.9) % Plt Count 168 (140-400) K/mcL Neutrophils # 9.9 H (1.6-8.9) K/mcL BMP 01/21/19 03:33 Sodium 132 L Potassium 3.8 Chloride 89 L Carbon Dioxide 33 H BUN 6 Creatinine 0.35 L Glucose 141 H Calcium 8.1 L - ABG Interpretation ABG results: ABG ABG pH 7.36 pH Units (7.32-7.45) 01/17/19 19:21 ABG pCO2 48 mmHg (35-45) H 01/17/19 19:21 ABG pO2 89 mmHg (85-104) 01/17/19 19:21 ABG O2 Saturation 96 % (95-98) 01/17/19 19:21 PT/INR, D-dimer PT 9.9 Seconds (9.4-12.1) 01/17/19 12:38 Consult Discharge Plan - Plan Referrals: Terrie Joseph, SENIOR COMPLIANCE ANALYST [Primary Care Provider] - (Appointment has been requested. Our offices will call with an appointment time and date.) (1) Hypertension Qualifiers: Hypertension type: essential hypertension Qualified Code(s): I10 - Essential (primary) hypertension (7) Hypothyroidism Qualifiers: Qualified Code(s): E03.9 - Hypothyroidism, unspecified
[2019-01-21] MEDS: Vitamin B Complex/Vit C/Vit E 1 EACH TABLET PO SCH (10:36)
[2019-01-21] MEDS: Folic Acid 1 MG TABLET PO SCH (10:36)
[2019-01-21] MEDS: Nicotine 21 MG PATCH.TD24 TD SCH ×2 (10:36→10:47)
[2019-01-21] MEDS: Azithromycin 250 MG TABLET PO SCH (10:36)
[2019-01-21] MEDS: Gabapentin 300 MG CAPSULE PO SCH ×3 (10:37→21:01)
[2019-01-21] MEDS: amLODIPine 5 MG TABLET PO SCH (10:37)
[2019-01-21] MEDS: Loratadine 10 MG TABLET PO SCH (10:37)
[2019-01-21] MEDS: Fluticasone Propionate Nasal 50 MCG/SPRAY BOTTLE NS SCH (10:38)
[2019-01-21] MEDS: Magnesium Oxide 400 MG TABLET PO SCH (10:41)
[2019-01-21] MEDS: tiZANidine 4 MG TABLET PO PRN (10:53)
[2019-01-21] MEDS: Levalbuterol Neb 1.25 MG/3 ML IH SCH ×2 (15:30→21:31)
[2019-01-21] MEDS: predniSONE 20 MG TABLET PO SCH (16:43)
[2019-01-21] MEDS: Ondansetron ODT 4 MG TAB.RAPDIS SL PRN (16:49)
[2019-01-21] MEDS: Mirtazapine 15 MG TABLET PO SCH (21:00)
[2019-01-21] MEDS: traZODone 50 MG TABLET PO SCH (21:01)
[2019-01-22 01:38] LABS: Basophils % 0.2 %; Hematocrit 30.2 % (35.3-44.9); Hemoglobin 9.5 g/dL (11.5-15.4); Lymphocytes # 0.8 K/mcL (0.6-4.6); Lymphocytes % 6.4 %; Mean Corpuscular HGB Conc 31.5 g/dL (31.6-35.5); Mean Corpuscular Hemoglobin 30.7 pg (28.0-33.3); Mean Corpuscular Volume 97.7 fL (83.0-100.0); Mean Platelet Volume 10.3 fL (9.4-12.4); Monocytes # 0.4 K/mcL (0.0-1.3); Monocytes % 2.9 %; Neutrophils # 10.9 K/mcL (1.6-8.9); Platelet Count 198 K/mcL (140-400); Red Blood Count 3.09 M/mcL (3.82-4.97); Red Cell Distribution Width 15.5 % (11.5-14.5); Segmented Neutrophils % 88.5 %
[2019-01-22 01:58] LABS: BUN/Creatinine Ratio 22 (6-26); Blood Urea Nitrogen 8 mg/dL (6-20); Calcium 8.1 mg/dL (8.6-10.3); Carbon Dioxide 34 mEq/L (23-29); Chloride 89 mEq/L (98-107); Glucose 200 mg/dL (70-105); Osmolality,Calculated 274 (280-300); Sodium 130 mEq/L (136-145); eGFR For Non-African Americans > 60 (> 60)
[2019-01-22] MEDS: Levalbuterol Neb 1.25 MG/3 ML IH SCH ×4 (04:10→23:03)
[2019-01-22] MEDS: *HR* Heparin 5,000 UNIT/ML VIAL SQ SCH ×2 (06:17→17:01)
[2019-01-22] MEDS: Levothyroxine 25 MCG TABLET PO SCH (06:20)
[2019-01-22] MEDS: Vitamin B Complex/Vit C/Vit E 1 EACH TABLET PO SCH (08:58)
[2019-01-22] MEDS: predniSONE 20 MG TABLET PO SCH ×2 (08:59→17:01)
[2019-01-22] MEDS: Folic Acid 1 MG TABLET PO SCH (08:59)
[2019-01-22] MEDS: Loratadine 10 MG TABLET PO SCH (08:59)
[2019-01-22] MEDS: Magnesium Oxide 400 MG TABLET PO SCH (08:59)
[2019-01-22] MEDS: amLODIPine 5 MG TABLET PO SCH (08:59)
[2019-01-22] MEDS: Azithromycin 250 MG TABLET PO SCH (08:59)
[2019-01-22] MEDS: Gabapentin 300 MG CAPSULE PO SCH ×3 (08:59→21:18)
[2019-01-22] MEDS: Fluticasone Propionate Nasal 50 MCG/SPRAY BOTTLE NS SCH (09:08)
[2019-01-22] MEDS: Nicotine 21 MG PATCH.TD24 TD SCH (09:08)
[2019-01-22] MEDS: Budesonide/Formoterol 160/4.5 1 PUFF INH IH SCH ×2 (10:55→23:03)
--- NOTE | 2019-01-22 12:34 | Internal Med Progress Note ---
Hospitalist Progress Note - Encounter Date of Encounter: 01/22/19 Time of Encounter: 10:00 - Subjective Interval History: Patient seen and exmined at bedside- She is sitting on side of bed states" I am not doing good, I cant catch my breath" Has scattered wheezes and diminshed BS in bases. Breathing tx ordered for patient - Exam Vitals: Temp Pulse Resp BP Pulse Ox 98.5 F 92 17 137/82 98 01/22/19 11:33 01/22/19 11:33 01/22/19 11:33 01/22/19 11:33 01/22/19 11:33 Exam: Gen: Alert, awake, Oriented to time,place and person Chest: Diminished breath sounds B/L, Moderate to severe wheezing, No crackles, No rales Heart: S1S2+ RRR No murmurs Abd: Soft, NT, BS +, No organomegaly Ext: No edema, pulses are palpable, No calf tenderness Neuro : Benign findings Skin: No rash. - Assessment and Plan (1) Hypertension Current Visit: No Status: Chronic Assessment and Plan: started on Metoprolol and Norvasc- stable at this time on IV hydralazine PRN (2) Tobacco dependence Current Visit: No Status: Chronic Assessment and Plan: Counseled to quit smoking placed on nicotine patch (3) Acute exacerbation of chronic obstructive pulmonary disease (COPD) Current Visit: Yes Status: Acute Assessment and Plan: Has some SOB this AM - Cont IV Solumedrol 40mg [id number] has lost IV access we will place on prednisone 40 mg twice a day for now Her Resp viral panel came back as positive for para influenza cont empirical abx cont frequent bronchodilators therapy-he has been tachycardiac with breathing treatments we will place on Xopenex continue oxygen (4) DVT prophylaxis Current Visit: Yes Status: Acute Assessment and Plan: heparin sc (5) Bronchiolitis Current Visit: Yes Status: Acute Assessment and Plan: viral respiratory panel came back as positive for Parainfluenza Continue supportive management as above (6) Alcohol abuse Current Visit: Yes Status: Acute Assessment and Plan: Admits to consume 6 bottles of alcohol per day cont on CIWA protocol on Ativan PRN (7) Hypothyroidism Current Visit: Yes Status: Acute Assessment and Plan: Continue levothyroxine (8) Sinus tachycardia Current Visit: Yes Status: Acute Assessment and Plan: due to resp distress cont on tele changed neb treatment to Xopenox started her on Metoprolol - Time Spent with Patient Total time spent is greater than 50% in coordination of care (as documented) at patient's floor/unit and/or counseling patient: Internal Medicine: Result - Labs CBC & Chem 7: 01/22/19 01:05 01/22/19 01:05 Labs: Short CBC 01/22/19 Range/Units 01:05 WBC 12.3 H (4.3-11.1) K/mcL Hgb 9.5 L (11.5-15.4) g/dL Hct 30.2 L (35.3-44.9) % Plt Count 198 (140-400) K/mcL Neutrophils # 10.9 H (1.6-8.9) K/mcL BMP 01/22/19 01:05 Sodium 130 L Potassium 4.0 Chloride 89 L Carbon Dioxide 34 H BUN 8 Creatinine 0.37 L Glucose 200 H Calcium 8.1 L - ABG Interpretation ABG results: ABG ABG pH 7.36 pH Units (7.32-7.45) 01/17/19 19:21 ABG pCO2 48 mmHg (35-45) H 01/17/19 19:21 ABG pO2 89 mmHg (85-104) 01/17/19 19:21 ABG O2 Saturation 96 % (95-98) 01/17/19 19:21 PT/INR, D-dimer PT 9.9 Seconds (9.4-12.1) 01/17/19 12:38 Consult Discharge Plan - Plan Referrals: Terrie Joseph, DRAGLINE ENGINEER [Primary Care Provider] - (Appointment has been requested. Our offices will call with an appointment time and date.) (1) Hypertension Qualifiers: Hypertension type: essential hypertension Qualified Code(s): I10 - Essential (primary) hypertension (7) Hypothyroidism Qualifiers: Qualified Code(s): E03.9 - Hypothyroidism, unspecified
[2019-01-22] MEDS: traZODone 50 MG TABLET PO SCH (21:18)
[2019-01-22] MEDS: Mirtazapine 15 MG TABLET PO SCH (21:18)
[2019-01-23] MEDS: Levalbuterol Neb 1.25 MG/3 ML IH SCH ×2 (03:49→11:22)
[2019-01-23] MEDS: *HR* Heparin 5,000 UNIT/ML VIAL SQ SCH (05:51)
[2019-01-23] MEDS: Levothyroxine 25 MCG TABLET PO SCH (05:51)
[2019-01-23 07:05] VITALS: BP 159/90
[2019-01-23] MEDS: Gabapentin 300 MG CAPSULE PO SCH (08:57)
[2019-01-23] MEDS: Azithromycin 250 MG TABLET PO SCH (08:57)
[2019-01-23] MEDS: Loratadine 10 MG TABLET PO SCH (08:57)
[2019-01-23] MEDS: predniSONE 20 MG TABLET PO SCH (08:57)
[2019-01-23] MEDS: amLODIPine 5 MG TABLET PO SCH (08:57)
[2019-01-23] MEDS: Vitamin B Complex/Vit C/Vit E 1 EACH TABLET PO SCH (08:57)
[2019-01-23] MEDS: Folic Acid 1 MG TABLET PO SCH (08:57)
[2019-01-23] MEDS: Magnesium Oxide 400 MG TABLET PO SCH (08:57)
[2019-01-23] MEDS: Acetaminophen 325 MG TABLET PO PRN (09:08)
[2019-01-23] MEDS: Fluticasone Propionate Nasal 50 MCG/SPRAY BOTTLE NS SCH (09:29)
[2019-01-23] MEDS: Nicotine 21 MG PATCH.TD24 TD SCH (09:29)
--- NOTE | 2019-01-23 10:20 | Discharge Summary ---
- NOTES TO OUTPATIENT PROVIDER Notes to Outpatient Provider: f/u with PCP in one week. Please quit smoking. Please f/u with Blending Operator in 1 week as scheduled. Please continue tapering dose steroids and Duonebs. Date of Encounter: 01/23/19 Time of Encounter: 10:18 - Discharge Diagnosis (1) Bronchiolitis Priority: Primary Status: Acute (2) Acute exacerbation of chronic obstructive pulmonary disease (COPD) Priority: Primary Status: Acute (3) Hypertension Priority: Secondary Status: Chronic Qualifiers: Hypertension type: essential hypertension Qualified Code(s): I10 - Essential (primary) hypertension (4) Tobacco dependence Priority: Secondary Status: Chronic (5) DVT prophylaxis Priority: Secondary Status: Acute (6) Alcohol abuse Priority: Secondary Status: Acute (7) Hypothyroidism Priority: Secondary Status: Acute Qualifiers: Qualified Code(s): E03.9 - Hypothyroidism, unspecified (8) Sinus tachycardia Priority: Secondary Status: Acute Hospital course: Ms. Rodriguez is a 58 year old female with known PMH of COPD, alcohol dependence, tobacco dependence, hypertension, and chronic hypoxic respiratory failure presented to ER with complaints of progressively worsening shortness of breath and cough with expectoration. She is known advanced COPD, very non compliant pt who had multiple hospitalization within last one month. She was admitted in the hospital and started on high-dose IV steroids and empirical antibiotic. Her resp viral panel came back as positive for para influenza. She is a very non compliance pt with medication and who still smokes 1 PPD. She did require high dose steroids for 4 days due to her severe SOB and CHEUNG. Her symptoms started improving slowly now. She is back to baseline. So will d/c her home with PO tapering dose steroids. she did finish 7 days of abx course here. She remained afebrile for last 48 hrs. Will d/c home with home health services and will contact nurse navigator to f.u with pt at home for more education. Also recommend to f/u with Pulmonary as an out pt. - Time Spent with Patient Total time spent providing and/or coordinating discharge services: - Discharge Medications Prescriptions: New Metoprolol [Lopressor] 25 mg PO BID #60 tablet Guaifenesin [Mucinex] 600 mg PO BID #20 tab.er.12h Nicotine Patch [Nicoderm] 21 mg TD DAILY #30 patch.td24 amLODIPine [Norvasc] 5 mg PO DAILY #30 tablet predniSONE [PredniSONE] 40 mg PO DAILY #10 tablet Continued Escitalopram [Lexapro] 10 mg PO DAILY Meloxicam [Mobic] 15 mg PO DAILY Levothyroxine Sodium [Tirosint] 25 mcg PO QAM Cetirizine HCl [24Hour Allergy] 10 mg PO DAILY Ipratropium/Albuterol Neb [Duoneb] 3 ml IH [id number] PRN #90 inhsol PRN Reason: Wheezing hydrOXYzine HCl [Hydroxyzine HCl] 25 mg PO TID PRN PRN Reason: Anxiety Fluticasone Propionate Nasal [Flonase] 1 spr NS DAILY Mirtazapine 7.5 mg PO HS Trazodone HCl 50 mg PO HS Buspirone HCl [Buspar] 15 mg PO BID Gabapentin [Neurontin] 300 mg PO TID Albuterol Sulfate [Albuterol Inhaler] 2 puff IH Q4H PRN PRN Reason: Shortness Of Breath Budesonide/Formoterol 160/4.5 [Symbicort 160/4.5] 2 puff IH BIDR Ipratropium/Albuterol Sulfate [Combivent Respimat 20-100 Mcg] 1 puff IH QID PRN PRN Reason: Shortness Of Breath Omeprazole [PriLOSEC] 40 mg PO DAILY Tizanidine HCl 2 mg PO TID PRN PRN Reason: Muscle Pain Home Medications: Escitalopram [Lexapro] 10 mg PO DAILY 12/30/17 [History] Cetirizine HCl [24Hour Allergy] 10 mg PO DAILY 09/14/18 [History] Levothyroxine Sodium [Tirosint] 25 mcg PO QAM 09/14/18 [History] Meloxicam [Mobic] 15 mg PO DAILY 09/14/18 [History] Ipratropium/Albuterol Neb [Duoneb] 3 ml IH [id number] PRN #90 inhsol 09/17/18 [Rx] hydrOXYzine HCl [Hydroxyzine HCl] 25 mg PO TID PRN 12/07/18 [History] Fluticasone Propionate Nasal [Flonase] 1 spr NS DAILY 12/08/18 [History] Mirtazapine 7.5 mg PO HS 12/08/18 [History] Trazodone HCl 50 mg PO HS 12/08/18 [History] Buspirone HCl [Buspar] 15 mg PO BID 12/22/18 [History] Gabapentin [Neurontin] 300 mg PO TID 12/22/18 [History] Albuterol Sulfate [Albuterol Inhaler] 2 puff IH Q4H PRN 01/17/19 [History] Budesonide/Formoterol 160/4.5 [Symbicort 160/4.5] 2 puff IH BIDR 01/17/19 [History] Ipratropium/Albuterol Sulfate [Combivent Respimat 20-100 Mcg] 1 puff IH QID PRN 01/17/19 [History] Omeprazole [PriLOSEC] 40 mg PO DAILY 01/17/19 [History] Tizanidine HCl 2 mg PO TID PRN 01/17/19 [History] Guaifenesin [Mucinex] 600 mg PO BID #20 tab.er.12h 01/23/19 [Rx] Metoprolol [Lopressor] 25 mg PO BID #60 tablet 01/23/19 [Rx] Nicotine Patch [Nicoderm] 21 mg TD DAILY #30 patch.td24 01/23/19 [Rx] amLODIPine [Norvasc] 5 mg PO DAILY #30 tablet 01/23/19 [Rx] predniSONE [PredniSONE] 40 mg PO DAILY #10 tablet 01/23/19 [Rx] Allergies/Adverse Reactions: Allergy/AdvReac Type Severity Reaction Status Date / Time No Known Allergies Allergy Verified 12/22/18 08:48 Date of admission: 01/19/19 11:12 Primary care physician: Terrie Joseph CNP Consults: 01/18/19 09:55 Consult to Nurse Navigator [CONS] Routine Comment: copd - Constitutional Vitals: Temp Pulse Resp BP Pulse Ox 98.6 F 98 18 159/90 96 01/23/19 07:01 01/23/19 07:01 01/23/19 07:01 01/23/19 07:01 01/23/19 09:11 General appearance: Present: A&O X 3, no acute distress, answers questions appro priately Exam: Gen: Alert, awake, Oriented to time,place and person Chest: Diminished breath sounds B/L, Moderate wheezing, No crackles, No rales Heart: S1S2+ RRR No murmurs Abd: Soft, NT, BS +, No organomegaly Ext: No edema, pulses are palpable, No calf tenderness Neuro : Benign findings Skin: No rash. - Patient Status Disposition: Home Health Service Condition: Good Overall status at discharge: patient is back to baseline - Discharge Instructions Follow Up With: Terrie Joseph CNP [Primary Care Provider] - (Appointment has been requested. Our offices will call with an appointment time and date.) Michelet Murillo MD [Partnered Physician] - - Diet and Activity Activity: increase activity as tolerated, wear oxygen at all times Diet: low salt diet
--- NOTE | 2019-01-23 10:34 | Physician Discharge Referral ---
Home Health/Hosp Referral Info Transfer to: Home Health Provider in Charge Post Discharge: PCP - Diagnosis (1) Bronchiolitis Status: Acute (2) Acute exacerbation of chronic obstructive pulmonary disease (COPD) Status: Acute (3) Hypertension Status: Chronic (4) Tobacco dependence Status: Chronic (5) DVT prophylaxis Status: Acute (6) Alcohol abuse Status: Acute (7) Hypothyroidism Status: Acute (8) Sinus tachycardia Status: Acute - Respiratory Orders Smoking Cessation: Smoking cessation has been advised. For more information, call the [place] Tobacco Quit Line at 7-133-HXZH-NOW. - Services Needed Following services are medically necessary services: Nursing, Home Health Aide - Transfer Medications Prescriptions: Metoprolol [Lopressor] 25 mg PO BID #60 tablet Guaifenesin [Mucinex] 600 mg PO BID #20 tab.er.12h Nicotine Patch [Nicoderm] 21 mg TD DAILY #30 patch.td24 amLODIPine [Norvasc] 5 mg PO DAILY #30 tablet predniSONE [PredniSONE] 40 mg PO DAILY #10 tablet Home Medications: Escitalopram [Lexapro] 10 mg PO DAILY 12/30/17 [History] Cetirizine HCl [24Hour Allergy] 10 mg PO DAILY 09/14/18 [History] Levothyroxine Sodium [Tirosint] 25 mcg PO QAM 09/14/18 [History] Meloxicam [Mobic] 15 mg PO DAILY 09/14/18 [History] Ipratropium/Albuterol Neb [Duoneb] 3 ml IH [id number] PRN #90 inhsol 09/17/18 [Rx] hydrOXYzine HCl [Hydroxyzine HCl] 25 mg PO TID PRN 12/07/18 [History] Fluticasone Propionate Nasal [Flonase] 1 spr NS DAILY 12/08/18 [History] Mirtazapine 7.5 mg PO HS 12/08/18 [History] Trazodone HCl 50 mg PO HS 12/08/18 [History] Buspirone HCl [Buspar] 15 mg PO BID 12/22/18 [History] Gabapentin [Neurontin] 300 mg PO TID 12/22/18 [History] Albuterol Sulfate [Albuterol Inhaler] 2 puff IH Q4H PRN 01/17/19 [History] Budesonide/Formoterol 160/4.5 [Symbicort 160/4.5] 2 puff IH BIDR 01/17/19 [History] Ipratropium/Albuterol Sulfate [Combivent Respimat 20-100 Mcg] 1 puff IH QID PRN 01/17/19 [History] Omeprazole [PriLOSEC] 40 mg PO DAILY 01/17/19 [History] Tizanidine HCl 2 mg PO TID PRN 01/17/19 [History] Guaifenesin [Mucinex] 600 mg PO BID #20 tab.er.12h 01/23/19 [Rx] Metoprolol [Lopressor] 25 mg PO BID #60 tablet 01/23/19 [Rx] Nicotine Patch [Nicoderm] 21 mg TD DAILY #30 patch.td24 01/23/19 [Rx] amLODIPine [Norvasc] 5 mg PO DAILY #30 tablet 01/23/19 [Rx] predniSONE [PredniSONE] 40 mg PO DAILY #10 tablet 01/23/19 [Rx] Allergies/Adverse Reactions: Allergy/AdvReac Type Severity Reaction Status Date / Time No Known Allergies Allergy Verified 12/22/18 08:48 Certification: Further, I certify that my clinical findings support that this patient is ho mebound (i.e. absences from home require considerable and taxing effort and are for medical reasons or congregational services or infrequently or short duration when for other reasons) because: Homebound Reason: Patient requires assistance of a person or device to safely leave home Attestation: My signature below is to certify that this patient is under my care and that I, or nurse practitioner, or a physician's periodicals library assistant working with me, has a [id number] encounter with this patient.
[2019-01-23] MEDS: Budesonide/Formoterol 160/4.5 1 PUFF INH IH SCH (11:21)
== END 2019-01-23 11:54 | disposition home health service (06) | DRG 191 ==
LOC: EMEROOARM 11:49 → 3BNU 11:49 → SUATTDRO 16:36 → 3BNU 18:23
PROVIDERS: ADMIT Internal Medicine; ATTEND Family Medicine

== ENCOUNTER 2019-03-03 19:46 | Inpatient (IN) ==
[2019-03-04] MEDS ORDERED: Naloxone 0.4 MG/ML INJ IVP PRN (00:13)
[2019-03-04] MEDS ORDERED: Ondansetron 4 MG/2 ML VIAL IVP PRN (00:13)
[2019-03-04] MEDS: 0.9 % Sodium Chloride 1,000 ML IVC SCH ×2 (00:57→23:39)
[2019-03-04 01:13] LABS: Basophils % 0.2 %; Platelet Count 112 K/mcL (140-400)
[2019-03-04 01:14] LABS: Basophils # 0.1 K/mcL (0.0-0.2); Hematocrit 28.5 % (35.3-44.9); Hemoglobin 9.3 g/dL (11.5-15.4); Immature Granulocytes % 1.7 % (0-4); Lymphocytes # 0.4 K/mcL (0.6-4.6); Mean Corpuscular HGB Conc 32.6 g/dL (31.6-35.5); Mean Corpuscular Hemoglobin 29.9 pg (28.0-33.3); Mean Corpuscular Volume 91.6 fL (83.0-100.0); Mean Platelet Volume 11.4 fL (9.4-12.4); Monocytes # 0.5 K/mcL (0.0-1.3); Monocytes % 1.3 %; Red Blood Count 3.11 M/mcL (3.82-4.97); Red Cell Distribution Width 13.8 % (11.5-14.5); Segmented Neutrophils % 95.8 %
[2019-03-04 01:15] LABS: Neutrophils # 38.1 K/mcL (1.6-8.9)
[2019-03-04 01:18] LABS: White Blood Count 39.8 K/mcL (4.3-11.1)
[2019-03-04 01:23] LABS: INR 1.1; Prothrombin Time 12.1 Seconds (9.4-12.1)
[2019-03-04 01:26] LABS: Activated Partial Thrombo Time 26.2 Seconds (26.0-36.0)
[2019-03-04 01:32] LABS: Alanine Aminotransferase 7 Units/L (7-52); Albumin 3.2 g/dL (3.5-5.7); Albumin/Globulin Ratio 0.9 (1.1-2.2); Alkaline Phosphatase 112 Units/L (34-104); Aspartate Amino Transferase 9 Units/L (13-39); BUN/Creatinine Ratio 27 (6-26); Bilirubin,Total 0.3 mg/dL (0.3-1.0); Blood Urea Nitrogen 7 mg/dL (6-20); Calcium 8.8 mg/dL (8.6-10.3); Carbon Dioxide 25 mEq/L (23-29); Chloride 98 mEq/L (98-107); Globulin 3.4 g/dL (2.4-3.5); Glucose 136 mg/dL (70-105); Magnesium 1.6 mg/dL (1.6-2.6); Osmolality,Calculated 274 (280-300); Potassium 3.6 mEq/L (3.5-5.1); Sodium 132 mEq/L (136-145); Total Protein 6.6 g/dL (6.4-8.9); eGFR For African Americans > 60 (> 60); eGFR For Non-African Americans > 60 (> 60)
[2019-03-04 01:37] LABS: Hypochromasia Present (Not Present); Platelet Estimate Decreased (Normal)
[2019-03-04] MEDS: Ipratropium/Albuterol Neb 3 ML IH SCH ×6 (03:39→19:58)
[2019-03-04] MEDS: Azithromycin 500 MG in D5% in Water 250 ML IVPB SCH (05:29)
--- NOTE | 2019-03-04 06:34 | Internal Med History&Physical ---
Date of Encounter: 03/04/19 Time of Encounter: 04:00 Internal Medicine - H&P: HPI Chief complaint: Cough, shortness of breath History of present illness: Ms. Rodriguez is a 58 year old female with a past medical history of COPD, alcohol abuse, hypertension, liver disease who initially presented to [facility] due to complaints of shortness of breath and cough for the past 4 days. Patient also reporting subjective fever and chills. Patient was recently discharged from [facility] earlier this month after hospitalization for acute colitis and had been undergoing rehabilitation at a facility. Per reports patient was found to have low O2 saturations of 83% on her baseline 2 L of oxygen and a fever of 101. On arrival to [facility] patient had a heart rate of 120, blood pressure 110/72 and was saturating at 96% on 3 L nasal cannula. Laboratory workup was notable for a leukocytosis of 33.7, hyponatremia 128 and a lactic acid within normal limits. A CTA of the chest was performed which showed no evidence of PE. There was interstitial thickening consistent with a multifocal inflammatory or infectious bronchiolitis as well as a small mark-peripheral consolidation within the lingula concerning for pneumonia. Additionally a severe anterior compression fracture of T12 with a retropulsed component contributing to spinal stenosis of unknown chronicity was seen. Patient was given DuoNeb treatments and Solu-Medrol and started on antibiotics with ceftriaxone and azithromycin. Arrival here, patient was afebrile and hemodynamically stable. No evidence of respiratory distress. Patient admits that continues to smoke 2 packs a day. Will admit and treat for healthcare associated pneumonia. Past Med Surg Social Fam HX - Past Medical History Medical history: COPD, GERD, hypertension, liver disease, thyroid disease, TIA, other Additional medical history: depression, back pain, chest pain, headache Psychiatric history: anxiety, depression - Past Surgical History Surgical History: other Additional surgical history: D&C - Social History Smoking Status: Current every day smoker Smokeless Tobacco Status: No Alcohol use: none, heavy, recent Drug use: none - Family History Brother Adopted: No Living Status: Hx Family Cancer: Yes (Lung) Mother Living Status: Hx Family Cardiac Disorders: No Hx Family Respiratory Disorders: Yes (asthma) Hx Family Cancer: Yes (breast) Internal Medicine - H&P: Meds Escitalopram [Lexapro] 10 mg PO DAILY 12/30/17 [History] Cetirizine HCl [24Hour Allergy] 10 mg PO DAILY 09/14/18 [History] Levothyroxine Sodium [Tirosint] 25 mcg PO QAM 09/14/18 [History] Meloxicam [Mobic] 15 mg PO DAILY 09/14/18 [History] hydrOXYzine HCl [Hydroxyzine HCl] 25 mg PO TID PRN 12/07/18 [History] Fluticasone Propionate Nasal [Flonase] 1 spr NS DAILY 12/08/18 [History] Mirtazapine 7.5 mg PO HS 12/08/18 [History] Trazodone HCl 50 mg PO HS 12/08/18 [History] Gabapentin [Neurontin] 300 mg PO TID 12/22/18 [History] Albuterol Sulfate [Albuterol Inhaler] 2 puff IH Q4H PRN 01/17/19 [History] Budesonide/Formoterol 160/4.5 [Symbicort 160/4.5] 2 puff IH BIDR 01/17/19 [History] Ipratropium/Albuterol Sulfate [Combivent Respimat 20-100 Mcg] 1 puff IH Q6H PRN 01/17/19 [History] Tizanidine HCl 2 mg PO Q8H PRN 01/17/19 [History] amLODIPine [Norvasc] 5 mg PO DAILY #30 tablet 01/23/19 [Rx] Albuterol Neb [Proventil Neb] 2.5 mg IH Q4H PRN 02/10/19 [History] Fluticasone/Umeclidin/Vilanter [Trelegy Ellipta 100-62.5-25] 1 puff PO DAILY 02/10/19 [History] Cholecalciferol (D-3) [Vitamin D] 1,000 unit PO DAILY #30 tablet 02/14/19 [Rx] Ferrous Sulfate 325 mg PO BIDWM #60 tablet 02/14/19 [Rx] Magnesium Oxide [Mag-Ox] 400 mg PO TID #90 tablet 02/14/19 [Rx] Acetaminophen [Extra Strength Non-Aspirin] 500 mg PO Q6H PRN 03/04/19 [History] Buspirone HCl [Buspar] 15 mg PO BID 03/04/19 [History] Guaifenesin [Cough Syrup] 100 mg PO Q6H PRN 03/04/19 [History] Metoprolol [Lopressor] 25 mg PO BID 03/04/19 [History] Omeprazole [PriLOSEC] 20 mg PO DAILY 03/04/19 [History] Allergy/AdvReac Type Severity Reaction Status Date / Time No Known Allergies Allergy Verified 02/10/19 21:37 All Systems PM: A 10-system review of systems was performed and is negative for pertinent findings except as documented above in the HPI. - Constitutional Vitals: Temp Pulse Resp BP Pulse Ox 98.3 F 108 16 159/94 96 03/04/19 03:26 03/04/19 03:26 03/04/19 03:49 03/04/19 03:26 03/04/19 03:49 Exam: General: Alert and oriented x 3 Skin:Normal color, no rash, no lesions. HEENT:EOM, pupils equal, round and reactive. Cardiovascular:Normal S1 & S2, no rubs, murmurs or gallops. No JVD. Pulse regular. Lungs:rhonchorous b/l Abdomen:Soft, non-tender, no rigidity. Extremities:No deformity, no edema or tenderness, no joint swelling or clubbing. Neurological:Normal cognition and motor skills. Pulses:Carotid and radial pulses normal +2. Rest of the physical exam is non contributory Internal Med - H&P Results - Labs CBC & Chem 7: 03/04/19 00:50 03/04/19 00:50 Labs: Short CBC 03/04/19 Range/Units 00:50 WBC 39.8 H* (4.3-11.1) K/mcL Hgb 9.3 L (11.5-15.4) g/dL Hct 28.5 L (35.3-44.9) % Plt Count 112 L (140-400) K/mcL Neutrophils # 38.1 H (1.6-8.9) K/mcL BMP 03/04/19 00:50 Sodium 132 L Potassium 3.6 Chloride 98 Carbon Dioxide 25 BUN 7 Creatinine 0.26 L Glucose 136 H Calcium 8.8 Liver Function 03/04/19 Range/Units 00:50 Total Bilirubin 0.3 (0.3-1.0) mg/dL AST 9 L (13-39) Units/L ALT 7 (7-52) Units/L Alkaline Phosphatase 112 H (34-104) Units/L Albumin 3.2 L (3.5-5.7) g/dL - Assessment and Plan (1) Healthcare-associated pneumonia Current Visit: Yes Status: Acute Assessment and plan: Patient presenting with reported fever of 101, cough and shortness of breath of 4 days' duration. Patient noted to be hypoxic at her rehabilitation center. Found to have a significant leukocytosis of over 30. Patient was tachycardic. Lactic acid within normal limits. CTA of the chest concerning for bronchiolitis as well as a left lower lobe lingular pneumonia. Given her history recent hospitalization we will treat for possible healthcare associated pneumonia. Consider atypical etiology. -We will start patient on vancomycin, Zosyn and azithromycin -Follow up blood and sputum cultures; Legionella strep antigen. (2) Acute respiratory failure with hypoxia Current Visit: No Status: Acute Assessment and plan: Patient reportedly was found to be hypoxemic at her rehabilitation center with a O2 saturation of 83% on her baseline oxygen level of 2 L. Oxygenation improved to 96% on 3. Concern for underlying pneumonia. -Continue O2 support -Consider BiPAP as needed -Continue treatment for underlying pneumonia -We will start patient on duo nebs given her history of COPD though I do not feel she is in a acute exacerbation at this time. (3) Hyponatremia Current Visit: No Status: Acute Assessment and plan: Hyponatremia of 128. -We will continue patient on fluids and monitor. (4) COPD (chronic obstructive pulmonary disease) Current Visit: No Status: Chronic Assessment and plan: Patient has a history of COPD on 2 L baseline oxygen. Patient received DuoNeb's and steroids at [facility]. On my assessment I did not appreciate any wheezing. -We will continue a scheduled duo nebs every 4 hours for now. I will hold steroids for now as she does not currently appear to be in COPD exacerbation Qualifiers: COPD type: COPD with acute exacerbation Qualified Code(s): J44.1 - Chronic obstructive pulmonary disease with (acute) exacerbation (5) DVT prophylaxis Current Visit: No Status: Acute Assessment and plan: Subcutaneous heparin (6) Anemia Current Visit: Yes Status: Acute Assessment and plan: Patient presenting with a hemoglobin of 9.3 which appears to be chronic and at baseline -Monitor. Qualifiers: Anemia type: unspecified type Qualified Code(s): D64.9 - Anemia, unspecifie d - Time Spent With Patient Total time spent is greater than 50% in coordination of care (as documented) at patient's floor/unit and/or counseling patient:
[2019-03-04] MEDS ORDERED: Piperacillin/Tazobactam 3.375 GM in 0.9 % Sodium Chloride Mini Bag 100 ML IVPB SCH (08:00)
[2019-03-04] MEDS ORDERED: Aminoglycoside Consult 1 EACH MC ONE (08:54)
--- NOTE | 2019-03-04 08:54 | Internal Med Progress Note ---
<Marco Ledbetter - Last Filed: 03/04/19 17:38> Hospitalist Progress Note - Encounter Date of Encounter: 03/04/19 - Exam Vitals: Temp Pulse Resp BP Pulse Ox 97.8 F 94 16 103/64 99 03/04/19 15:15 03/04/19 15:15 03/04/19 15:20 03/04/19 15:15 03/04/19 15:20 - Assessment and Plan (1) DVT prophylaxis Current Visit: No Status: Acute (2) COPD (chronic obstructive pulmonary disease) Current Visit: No Status: Chronic (3) Hyponatremia Current Visit: No Status: Acute (4) Acute respiratory failure with hypoxia Current Visit: No Status: Acute (5) Healthcare-associated pneumonia Current Visit: Yes Status: Acute (6) Anemia Current Visit: Yes Status: Acute - Time Spent with Patient Total time spent is greater than 50% in coordination of care (as documented) at patient's floor/unit and/or counseling patient: Internal Medicine: Result - Labs CBC & Chem 7: 03/04/19 00:50 03/04/19 00:50 Labs: Short CBC 03/04/19 Range/Units 00:50 WBC 39.8 H* (4.3-11.1) K/mcL Hgb 9.3 L (11.5-15.4) g/dL Hct 28.5 L (35.3-44.9) % Plt Count 112 L (140-400) K/mcL Neutrophils # 38.1 H (1.6-8.9) K/mcL BMP 03/04/19 00:50 Sodium 132 L Potassium 3.6 Chloride 98 Carbon Dioxide 25 BUN 7 Creatinine 0.26 L Glucose 136 H Calcium 8.8 Liver Function 03/04/19 Range/Units 00:50 Total Bilirubin 0.3 (0.3-1.0) mg/dL AST 9 L (13-39) Units/L ALT 7 (7-52) Units/L Alkaline Phosphatase 112 H (34-104) Units/L Albumin 3.2 L (3.5-5.7) g/dL - ABG Interpretation ABG results: PT/INR, D-dimer PT 12.1 Seconds (9.4-12.1) 03/04/19 00:50 Consult Discharge Plan - Plan Referrals: Terrie Joseph CNP [Primary Care Provider] - - Attending Attestation Pt admitted earlier today with acute resp failure from pneumonia. She is beginning to feel somewhat better . Agree with assessment and plan as above and in H&P <Radha Hernandez - Last Filed: 03/04/19 20:37> Hospitalist Progress Note - Encounter Date of Encounter: 03/04/19 Time of Encounter: 08:50 - Subjective Interval History: Sitting in bed, watching television. Feels cough and wheezing have improved, still producing some greenish sputum and breathing treatments have been working well. She has no complaints at this time. Admits to nausea which has improved and to fevers, but states it's because she's going through menopause. Denies chills, chest pain, shortness of breath, abdominal pain. - Exam Vitals: Temp Pulse Resp BP Pulse Ox 98.4 F 102 20 134/79 100 03/04/19 07:42 03/04/19 07:42 03/04/19 07:42 03/04/19 07:42 03/04/19 07:42 Exam: General: No acute distress, resting comfortably in bed, vitals noted. HEENT: head normocephalic/atraumatic, EOMI, PERRL, sclera anicteric, dry mucus membranes Neck: Supple, no lymphadenopathy Cardio: RRR, no murmurs, +S1/S2 Pulm: course breath sounds bilaterally, diminished airflow bilaterally, no wheezing, Normal respiratory effort. Abdomen: soft, nontender, active bowel sounds Extremities: No LE edema, no cyanosis, no clubbing Neuro: AAOx3, no focal deficits, mentating well, CN II-XII grossly intact, moves all extremities spontaneously MSK: no visible deformities, no joint swelling Skin: clean, dry, intact, no visible rashes Psych: Appropriate mood and affect. Answers questions appropriately. Cooperative with exam - Assessment and Plan (1) HCAP (healthcare-associated pneumonia) Current Visit: Yes Status: Acute Assessment and Plan: SIRS criteria met on admission: WBC > 12, HR > 90, suspected source of infection is PNA. Discharged from [place] earlier this month, was admitted for acute colitis and discharged to facility for rehab. Reported fever 101 F with shortness of breath and cough x 4 days--has been afebrile here. CTA chest concerning for LLL lingular PNA and bronchiolitis. Negative legionella and strep pneumo urine antigens. Sputum culture and gram stain show few gram positive cocci on preliminary report. BCx incubating, no growth recorded. Received Vancomycin, Zosyn, and azithromycin on admission. MRSA swab, will stop vancomycin if negative. Monitor cultures for growth. Continue to monitor for fever, sepsis. (2) Acute and chronic respiratory failure with hypoxia Current Visit: Yes Status: Acute Assessment and Plan: Acute on chronic respiratory failure with hypoxia d/t healthcare-acquired PNA in the setting of COPD on 2L home oxygen. Reported SpO2 83% on 2L oxygen, improved to 96% on 3L when pt arrived at [facility]. CTA chest concerning for LLL lingular PNA and bronchiolitis, no evidence suggesting PE. Received ceftriaxone, azithromycin, Solu-Medrol, and duonebs at [place]. Doubt COPD exacerbation, no wheezing on exam today. Continue treating PNA. Continue duonebs and supplemental O2. BiPAP use PRN. (3) COPD (chronic obstructive pulmonary disease) Current Visit: Yes Status: Chronic Assessment and Plan: Not in acute exacerbation, no wheezing on exam. Uses 2L O2 at home. Continue scheduled duonebs and symbicort. No steroids at this time. (4) Hyponatremia Current Visit: No Status: Chronic Assessment and Plan: On admission, Na 128. Improved with IV fluids. Now at baseline, which is around 132. Chronic hyponatremia possibly d/t poor intake related to alcohol abuse. Continue monitoring electrolytes with daily BMP. (5) Hypertension Current Visit: Yes Status: Chronic Assessment and Plan: Controlled. Continue amlodipine and metoprolol. (6) Alcohol abuse Current Visit: No Status: Chronic (7) Tobacco dependence Current Visit: No Status: Chronic Assessment and Plan: Currently smokes 2 ppd. Cessation encouraged. (8) Compression fracture of body of thoracic vertebra Current Visit: Yes Status: Acute Assessment and Plan: Severe anterior compression fracture of T12 with retropulsed component contributing to spinal stenosis was seen on CTA. Chronicity unknown. DVT Prophylaxis: heparin subQ - Time Spent with Patient Total time spent is greater than 50% in coordination of care (as documented) at patient's floor/unit and/or counseling patient: Internal Medicine: Result - Labs CBC & Chem 7: 03/04/19 00:50 03/04/19 00:50 Labs: Short CBC 03/04/19 Range/Units 00:50 WBC 39.8 H* (4.3-11.1) K/mcL Hgb 9.3 L (11.5-15.4) g/dL Hct 28.5 L (35.3-44.9) % Plt Count 112 L (140-400) K/mcL Neutrophils # 38.1 H (1.6-8.9) K/mcL BMP 03/04/19 00:50 Sodium 132 L Potassium 3.6 Chloride 98 Carbon Dioxide 25 BUN 7 Creatinine 0.26 L Glucose 136 H Calcium 8.8 Liver Function 03/04/19 Range/Units 00:50 Total Bilirubin 0.3 (0.3-1.0) mg/dL AST 9 L (13-39) Units/L ALT 7 (7-52) Units/L Alkaline Phosphatase 112 H (34-104) Units/L Albumin 3.2 L (3.5-5.7) g/dL - ABG Interpretation ABG results: PT/INR, D-dimer PT 12.1 Seconds (9.4-12.1) 03/04/19 00:50 <Marco Ledbetter - Last Filed: 03/04/19 17:38> (2) COPD (chronic obstructive pulmonary disease) Qualifiers: COPD type: COPD with acute exacerbation Qualified Code(s): J44.1 - Chronic obstructive pulmonary disease with (acute) exacerbation (6) Anemia Qualifiers: Anemia type: unspecified type Qualified Code(s): D64.9 - Anemia, unspecified <Radha Hernandez - Last Filed: 03/04/19 20:37> (3) COPD (chronic obstructive pulmonary disease) Qualifiers: COPD type: COPD with acute exacerbation Qualified Code(s): J44.1 - Chronic obstructive pulmonary disease with (acute) exacerbation (5) Hypertension Qualifiers: Hypertension type: essential hypertension Qualified Code(s): I10 - Essential (primary) hypertension
[2019-03-04] MEDS: Gabapentin 300 MG CAPSULE PO SCH ×3 (09:28→20:38)
[2019-03-04] MEDS: amLODIPine 5 MG TABLET PO SCH (09:28)
[2019-03-04] MEDS: Acetaminophen 325 MG TABLET PO PRN ×2 (09:30→20:44)
[2019-03-04] MEDS: Levothyroxine 25 MCG TABLET PO SCH (09:37)
[2019-03-04] MEDS: *HR* Heparin 5,000 UNIT/ML VIAL SQ SCH ×3 (09:38→23:37)
[2019-03-04] MEDS: Budesonide/Formoterol 160/4.5 1 PUFF INH IH SCH (19:58)
[2019-03-04] MEDS: traZODone 50 MG TABLET PO SCH (20:38)
[2019-03-04] MEDS: tiZANidine 4 MG TABLET PO PRN (21:18)
[2019-03-04] MEDS: Mirtazapine 15 MG TABLET PO SCH (21:19)
[2019-03-05] MEDS: Ipratropium/Albuterol Neb 3 ML IH SCH ×6 (00:07→20:02)
[2019-03-05 00:58] LABS: Basophils % 0.1 %; Eosinophils % 0.2 %; Hemoglobin 7.8 g/dL (11.5-15.4); Immature Granulocytes % 1.1 % (0-4)
[2019-03-05 00:59] LABS: Eosinophils # 0.1 K/mcL (0.0-0.6); Hematocrit 24.5 % (35.3-44.9); Lymphocytes # 1.1 K/mcL (0.6-4.6); Mean Corpuscular HGB Conc 31.8 g/dL (31.6-35.5); Mean Corpuscular Hemoglobin 30.4 pg (28.0-33.3); Mean Corpuscular Volume 95.3 fL (83.0-100.0); Mean Platelet Volume 10.4 fL (9.4-12.4); Monocytes # 1.2 K/mcL (0.0-1.3); Monocytes % 4.1 %; Neutrophils # 25.3 K/mcL (1.6-8.9); Platelet Count 232 K/mcL (140-400); Red Blood Count 2.57 M/mcL (3.82-4.97); Red Cell Distribution Width 13.6 % (11.5-14.5); Segmented Neutrophils % 90.5 %
[2019-03-05 01:13] LABS: BUN/Creatinine Ratio 16 (6-26); Blood Urea Nitrogen 5 mg/dL (6-20); Carbon Dioxide 24 mEq/L (23-29); Chloride 97 mEq/L (98-107); Glucose 127 mg/dL (70-105); Osmolality,Calculated 269 (280-300); Potassium 3.1 mEq/L (3.5-5.1); Sodium 130 mEq/L (136-145); eGFR For African Americans > 60 (> 60); eGFR For Non-African Americans > 60 (> 60)
[2019-03-05 02:04] LABS: Hypochromasia Present (Not Present); Platelet Estimate Normal (Normal)
[2019-03-05] MEDS: Azithromycin 500 MG in D5% in Water 250 ML IVPB SCH (04:06)
[2019-03-05] MEDS: Levothyroxine 25 MCG TABLET PO SCH (05:53)
--- NOTE | 2019-03-05 06:18 | Internal Med Progress Note ---
<Radha Hernandez - Last Filed: 03/05/19 15:17> Hospitalist Progress Note - Encounter Date of Encounter: 03/05/19 Time of Encounter: 10:15 - Subjective Interval History: Seen and examined at bedside. She is sitting in bed watching television, appears comfortable. Still has some coughing, feels like she's breathing ok. Denies chi lls, chest pain, shortness of breath, abdominal pain. - Exam Vitals: Temp Pulse Resp BP Pulse Ox 97.6 F 74 15 104/62 98 03/04/19 23:06 03/04/19 23:06 03/05/19 04:08 03/04/19 23:06 03/05/19 04:08 Exam: General: No acute distress, resting comfortably in bed, vitals noted. HEENT: head normocephalic/atraumatic, EOMI, PERRL, sclera anicteric, dry mucus membranes Neck: Supple, no lymphadenopathy Cardio: RRR, no murmurs, +S1/S2 Pulm: course breath sounds bilaterally, bibasilar expiratory wheezes, diminished airflow L > R, no wheezing, Normal respiratory effort. Abdomen: soft, nontender, active bowel sounds Extremities: No LE edema, no cyanosis, no clubbing Neuro: AAOx3, no focal deficits, mentating well, CN II-XII grossly intact, moves all extremities spontaneously MSK: no visible deformities, no joint swelling Skin: clean, dry, intact, no visible rashes Psych: Appropriate mood and affect. Answers questions appropriately. Cooperative with exam - Assessment and Plan (1) HCAP (healthcare-associated pneumonia) Current Visit: Yes Status: Acute Assessment and Plan: Improving--WBC decreased, no tachycardia. SIRS criteria met on admission: WBC > 12, HR > 90, suspected source of infection is PNA. Discharged from [place] earlier this month, was admitted for acute colitis and discharged to facility for rehab. Reported fever 101 F with shortness of breath and cough x 4 days--has been afe brile here. CTA chest concerning for LLL lingular PNA and bronchiolitis. Negative legionella and strep pneumo urine antigens. Sputum culture and gram stain show few gram positive cocci on preliminary report. BCx incubating, no growth recorded. Continue azithromycin (day 3, first dose given @ [facility] Monitor for worsening signs of infection. (2) Acute and chronic respiratory failure with hypoxia Current Visit: Yes Status: Acute Assessment and Plan: Acute on chronic respiratory failure with hypoxia d/t healthcare-acquired PNA in the setting of COPD on 2L home oxygen. Reported SpO2 83% on 2L oxygen, improved to 96% on 3L when pt arrived at [facility]. CTA chest concerning for LLL lingular PNA and bronchiolitis, no evidence suggesting PE. Received ceftriaxone, azithromycin, Solu-Medrol, and duonebs at [place]. Doubt COPD exacerbation Continue DuoNebs, Symbicort, supplemental oxygen. (3) COPD (chronic obstructive pulmonary disease) Current Visit: Yes Status: Chronic Assessment and Plan: Doesn't appear to be in acute exacerbation. Uses 2L O2 at home. Continue scheduled duonebs and symbicort. No steroids at this time. (4) Hyponatremia Current Visit: Yes Status: Chronic Assessment and Plan: On admission Na 128, baseline around 132. Improved with IV fluids. Chronic hyponatremia possibly d/t poor intake related to alcohol abuse. Continue monitoring electrolytes with daily BMP. (5) Hypomagnesemia Current Visit: Yes Status: Acute Assessment and Plan: Magnesium 1.4. Replete and re-check in morning. (6) Hypokalemia Current Visit: Yes Status: Resolved Assessment and Plan: Potassium 3.1 Replete and re-check in morning. (7) Anemia Current Visit: Yes Status: Chronic Assessment and Plan: Chronic, likely related to poor nutritional status Hgb 9.3 on presentation, recent baseline 9-10. No signs of acute bleed, will continue to monitor. (8) Hypertension Current Visit: Yes Status: Chronic Assessment and Plan: Controlled. Continue amlodipine and metoprolol. (9) Compression fracture of body of thoracic vertebra Current Visit: Yes Status: Acute Assessment and Plan: Severe anterior compression fracture of T12 with retropulsed component contributing to spinal stenosis was seen on CTA. Chronicity unknown. May be worked up as outpatient. (10) Tobacco dependence Current Visit: Yes Status: Chronic Assessment and Plan: Currently smokes 2 ppd. Cessation encouraged. (11) Alcohol abuse Current Visit: No Status: Chronic DVT Prophylaxis: heparin subQ - Time Spent with Patient Total time spent is greater than 50% in coordination of care (as documented) at patient's floor/unit and/or counseling patient: less than 15 minutes Internal Medicine: Result - Labs CBC & Chem 7: 03/05/19 00:15 03/05/19 00:15 Labs: Short CBC 03/05/19 Range/Units 00:15 WBC 28.0 H (4.3-11.1) K/mcL Hgb 7.8 L D (11.5-15.4) g/dL Hct 24.5 L (35.3-44.9) % Plt Count 232 D (140-400) K/mcL Neutrophils # 25.3 H (1.6-8.9) K/mcL BMP 03/05/19 00:15 Sodium 130 L Potassium 3.1 L Chloride 97 L Carbon Dioxide 24 BUN 5 L Creatinine 0.32 L Glucose 127 H Calcium 8.0 L - ABG Interpretation ABG results: PT/INR, D-dimer PT 12.1 Seconds (9.4-12.1) 03/04/19 00:50 Consult Discharge Plan - Plan Referrals: Terrie Joseph [employer]PORATE SECURITY MANAGER [Primary Care Provider] - (Appointment has been requested.) <Marco Ledbetter - Last Filed: 03/06/19 16:03> Hospitalist Progress Note - Encounter Date of Encounter: 03/06/19 - Exam Vitals: Temp Pulse Resp BP Pulse Ox 98.1 F 86 21 128/78 98 03/05/19 11:29 03/05/19 11:29 03/05/19 11:29 03/05/19 11:29 03/05/19 11:29 - Assessment and Plan (1) DVT prophylaxis Current Visit: No Status: Acute (2) COPD (chronic obstructive pulmonary disease) Current Visit: Yes Status: Chronic (3) Hyponatremia Current Visit: No Status: Acute (4) Anemia Current Visit: Yes Status: Acute (5) Hypertension Current Visit: Yes Status: Chronic (6) Hypothyroidism Current Visit: No Status: Chronic (7) Pneumonia Current Visit: No Status: Suspected (8) Acute and chronic respiratory failure with hypoxia Current Visit: Yes Status: Acute - Time Spent with Patient Total time spent is greater than 50% in coordination of care (as documented) at patient's floor/unit and/or counseling patient: Internal Medicine: Result - Labs CBC & Chem 7: 03/06/19 04:25 03/06/19 04:25 Labs: Short CBC 03/05/19 Range/Units 00:15 WBC 28.0 H (4.3-11.1) K/mcL Hgb 7.8 L D (11.5-15.4) g/dL Hct 24.5 L (35.3-44.9) % Plt Count 232 D (140-400) K/mcL Neutrophils # 25.3 H (1.6-8.9) K/mcL BMP 03/05/19 00:15 Sodium 130 L Potassium 3.1 L Chloride 97 L Carbon Dioxide 24 BUN 5 L Creatinine 0.32 L Glucose 127 H Calcium 8.0 L - ABG Interpretation ABG results: PT/INR, D-dimer PT 12.1 Seconds (9.4-12.1) 03/04/19 00:50 - Attending Attestation I examined this patient and my medical decision-making was reviewed with the Resident Physician on 03/05/19. I agree with the documented findings, disposition and treatment plan as described except to the extent set forth below. Ms Rodriguez is currently admitted with resp failure due to pneumonia. She remains moderate to high risk due to potential for worsening clinical status. Ms Rodriguez is doing somewhat better. No fever or chills now. Still with cough. Wheezing mostly ARELI area. Agree with assessment and plan as above. Anticipate d/c in next 24-48 hours Sepsis not present this admission __ <Radha Hernandez - Last Filed: 03/05/19 15:17> (3) COPD (chronic obstructive pulmonary disease) Qualifiers: COPD type: COPD with acute exacerbation Qualified Code(s): J44.1 - Chronic obstructive pulmonary disease with (acute) exacerbation (7) Anemia Qualifiers: Anemia type: iron deficiency Qualified Code(s): D50.8 - Other iron deficiency anemias (8) Hypertension Qualifiers: Hypertension type: essential hypertension Qualified Code(s): I10 - Essential (primary) hypertension <Marco Ledbetter Lino - Last Filed: 03/06/19 16:03> (2) COPD (chronic obstructive pulmonary disease) Qualifiers: COPD type: COPD with acute exacerbation Qualified Code(s): J44.1 - Chronic o bstructive pulmonary disease with (acute) exacerbation (4) Anemia Qualifiers: Anemia type: unspecified type Qualified Code(s): D64.9 - Anemia, unspecified (5) Hypertension Qualifiers: Hypertension type: essential hypertension Qualified Code(s): I10 - Essential (primary) hypertension (6) Hypothyroidism Qualifiers: Hypothyroidism type: acquired Qualified Code(s): E03.9 - Hypothyroidism, unspecified (7) Pneumonia Qualifiers: Pneumonia type: due to other aerobic Gram-negative bacteria Laterality: bilateral Lung location: lower lobe of lung Qualified Code(s): J15.6 - Pneumonia due to other Gram-negative bacteria
[2019-03-05] MEDS: Budesonide/Formoterol 160/4.5 1 PUFF INH IH SCH ×2 (07:42→20:02)
[2019-03-05] MEDS: amLODIPine 5 MG TABLET PO SCH (08:01)
[2019-03-05] MEDS: Gabapentin 300 MG CAPSULE PO SCH ×3 (08:01→20:23)
[2019-03-05] MEDS: *HR* Heparin 5,000 UNIT/ML VIAL SQ SCH ×3 (08:03→23:04)
[2019-03-05] MEDS: Acetaminophen 325 MG TABLET PO PRN (10:15)
[2019-03-05 11:04] LABS: Magnesium 1.4 mg/dL (1.6-2.6)
[2019-03-05] MEDS: tiZANidine 4 MG TABLET PO PRN (16:12)
[2019-03-05] MEDS: Mirtazapine 15 MG TABLET PO SCH (20:23)
[2019-03-05] MEDS: traZODone 50 MG TABLET PO SCH (20:23)
[2019-03-06] MEDS: Ipratropium/Albuterol Neb 3 ML IH SCH ×7 (00:05→23:38)
[2019-03-06] MEDS: Azithromycin 500 MG in D5% in Water 250 ML IVPB SCH (04:13)
[2019-03-06 05:10] LABS: Basophils # 0.1 K/mcL (0.0-0.2); Basophils % 0.3 %; Eosinophils # 0.3 K/mcL (0.0-0.6); Eosinophils % 1.6 %; Hematocrit 27.9 % (35.3-44.9); Hemoglobin 8.6 g/dL (11.5-15.4); Immature Granulocytes % 1.2 % (0-4); Lymphocytes # 1.5 K/mcL (0.6-4.6); Mean Corpuscular HGB Conc 30.8 g/dL (31.6-35.5); Mean Corpuscular Hemoglobin 29.9 pg (28.0-33.3); Mean Corpuscular Volume 96.9 fL (83.0-100.0); Mean Platelet Volume 12.1 fL (9.4-12.4); Monocytes % 5.5 %; Neutrophils # 15.4 K/mcL (1.6-8.9); Platelet Count 169 K/mcL (140-400); Red Blood Count 2.88 M/mcL (3.82-4.97); Segmented Neutrophils % 83.4 %; White Blood Count 18.5 K/mcL (4.3-11.1)
[2019-03-06 05:33] LABS: BUN/Creatinine Ratio 14 (6-26); Blood Urea Nitrogen 4 mg/dL (6-20); Calcium 8.8 mg/dL (8.6-10.3); Carbon Dioxide 30 mEq/L (23-29); Chloride 97 mEq/L (98-107); Glucose 98 mg/dL (70-105); Osmolality,Calculated 279 (280-300); Potassium 4.5 mEq/L (3.5-5.1); Sodium 136 mEq/L (136-145); eGFR For African Americans > 60 (> 60); eGFR For Non-African Americans > 60 (> 60)
[2019-03-06] MEDS: Levothyroxine 25 MCG TABLET PO SCH (06:23)
[2019-03-06] MEDS: amLODIPine 5 MG TABLET PO SCH (08:46)
[2019-03-06] MEDS: Gabapentin 300 MG CAPSULE PO SCH ×3 (08:46→20:40)
[2019-03-06] MEDS: *HR* Heparin 5,000 UNIT/ML VIAL SQ SCH ×3 (08:46→22:56)
[2019-03-06] MEDS: Budesonide/Formoterol 160/4.5 1 PUFF INH IH SCH ×2 (11:03→20:19)
--- NOTE | 2019-03-06 15:20 | Internal Med Progress Note ---
Hospitalist Progress Note - Encounter Date of Encounter: 03/06/19 Time of Encounter: 08:50 - Subjective Interval History: When seen today patient was resting comfortably in her bed. She denied any chest pain. She said her shortness of breath was at her baseline level. Denied any nausea or vomiting. Admitted to some mild abdominal tenderness that was diffuse. Denied any cough or fever. - Exam Vitals: Temp Pulse Resp BP Pulse Ox 99.3 F 107 18 138/85 96 03/06/19 14:26 03/06/19 14:26 03/06/19 14:26 03/06/19 14:26 03/06/19 14:26 Exam: GENERAL APPEARANCE: Well developed, well nourished, alert and cooperative, and appears to be in no acute distress. HEAD: normocephalic. EYES: vision is grossly intact. EARS: hearing grossly intact. NOSE: No nasal discharge. THROAT: Oral cavity and pharynx normal. No inflammation, swelling, exudate, or lesions. Teeth and gingiva in good general condition. NECK: Neck supple, non-tender without lymphadenopathy, masses or thyromegaly. CARDIAC: Normal S1 and S2. No S3, S4 or murmurs. Rhythm is regular. There is no peripheral edema, cyanosis or pallor. Extremities are warm and well perfused. Capillary refill is less than 2 seconds. No carotid bruits. LUNGS: Mild end expiratory wheezing bilaterally. ABDOMEN: Positive bowel sounds. Soft, nondistended. Mild diffuse subjective tenderness with deep palpation. No guarding or rebound. No masses. EXTREMITIES: No significant deformity or joint abnormality. No edema. Peripheral pulses intact. LOWER EXTREMITY: Examination of both feet reveals all toes to be normal in size and symmetry, normal range of motion, normal sensation with distal capillary filling of less than 2 seconds without tenderness, swelling, discoloration, nodules, weakness or deformity. SKIN: Skin normal color, texture and turgor with no lesions or eruptions. PSYCHIATRIC: The mental examination revealed the patient was oriented to person, place, and time. - Assessment and Plan (1) HCAP (healthcare-associated pneumonia) Current Visit: Yes Status: Acute Assessment and Plan: SIRS criteria met on admission: WBC > 12, HR > 90, suspected source of infection is PNA. White blood cell count improved from 28 down to 18.5 today. Patient's vital signs are been stable. CTA chest concerning for LLL lingular PNA and bronchiolitis. Negative legionella and strep pneumo urine antigens. Sputum culture and gram stain show few gram positive cocci on preliminary report . BCx incubating, no growth recorded. Plan: - Continue with azithromycin and day #4. - Follow up with blood cultures. - Continue to monitor for worsening signs of infection. - Plan for discharge tomorrow if WBC continues to improve. (2) Acute and chronic respiratory failure with hypoxia Current Visit: Yes Status: Acute Assessment and Plan: Acute on chronic respiratory failure with hypoxia d/t healthcare-acquired PNA in the setting of COPD on 2L home oxygen. Reported SpO2 83% on 2L oxygen, improved to 96% on 3L when pt arrived at [facility]. CTA chest concerning for LLL lingular PNA and bronchiolitis, no evidence suggesting PE. Received ceftriaxone, azithromycin, Solu-Medrol, and duonebs at [place]. Doubt COPD exacerbation Plan: - Continue DuoNebs, Symbicort, supplemental oxygen. (3) COPD (chronic obstructive pulmonary disease) Current Visit: Yes Status: Chronic Assessment and Plan: Doesn't appear to be in acute exacerbation. Uses 2L O2 at home. Continue scheduled duonebs and symbicort. No steroids at this time. (4) Hyponatremia Current Visit: Yes Status: Resolved Assessment and Plan: On admission Na 128, baseline around 132. Improved with IV fluids. Chronic hyponatremia possibly d/t poor intake related to alcohol abuse. Plan: - Continue monitoring electrolytes with daily BMP. (5) Hypomagnesemia Current Visit: Yes Status: Acute Assessment and Plan: Level was at 1.5 today. Plan: - 2 gm IV Magnesium. - Repeat level in AM. (6) Anemia Current Visit: Yes Status: Acute Assessment and Plan: Chronic, likely related to poor nutritional status. Hgb 9.3 on presentation, recent baseline 9-10. No signs of acute bleed. Plan: - Will continue to monitor. (7) Hypertension Current Visit: Yes Status: Chronic Assessment and Plan: Controlled. Continue amlodipine and metoprolol. (8) Compression fracture of body of thoracic vertebra Current Visit: Yes Status: Acute Assessment and Plan: Severe anterior compression fracture of T12 with retropulsed component contributing to spinal stenosis was seen on CTA. Chronicity unknown. May be worked up as outpatient. (9) Tobacco dependence Current Visit: Yes Status: Chronic Assessment and Plan: Currently smokes 2 ppd. Cessation encouraged. (10) Alcohol abuse Current Visit: No Status: Acute Assessment and Plan: Counseled on cessation. DVT Prophylaxis: heparin subQ - Time Spent with Patient Total time spent is greater than 50% in coordination of care (as documented) at patient's floor/unit and/or counseling patient: Internal Medicine: Result - Labs CBC & Chem 7: 03/06/19 04:25 03/06/19 04:25 Labs: Short CBC 03/06/19 Range/Units 04:25 WBC 18.5 H (4.3-11.1) K/mcL Hgb 8.6 L (11.5-15.4) g/dL Hct 27.9 L (35.3-44.9) % Plt Count 169 (140-400) K/mcL Neutrophils # 15.4 H (1.6-8.9) K/mcL BMP 03/06/19 04:25 Sodium 136 Potassium 4.5 Chloride 97 L Carbon Dioxide 30 H BUN 4 L Creatinine 0.28 L Glucose 98 Calcium 8.8 - ABG Interpretation ABG results: PT/INR, D-dimer PT 12.1 Seconds (9.4-12.1) 03/04/19 00:50 Consult Discharge Plan - Plan Referrals: Terrie Joseph, [employer]OMAT[employer] LAT[employer] SETTER [Primary Care Provider] - (Appointment has been requested.) (3) COPD (chronic obstructive pulmonary disease) Qualifiers: COPD type: COPD with acute exacerbation Qualified Code(s): J44.1 - Chronic obstructive pulmonary disease with (acute) exacerbation (6) Anemia Qualifiers: Anemia type: unspecified type Qualified Code(s): D64.9 - Anemia, unspecified (7) Hypertension Qualifiers: Hypertension type: essential hypertension Qualified Code(s): I10 - Essential (primary) hypertension
[2019-03-06] MEDS: Acetaminophen 325 MG TABLET PO PRN (20:40)
[2019-03-06] MEDS: traZODone 50 MG TABLET PO SCH (20:40)
[2019-03-06] MEDS: Mirtazapine 15 MG TABLET PO SCH (20:40)
[2019-03-07] MEDS: Azithromycin 500 MG in D5% in Water 250 ML IVPB SCH (03:08)
[2019-03-07 04:13] LABS: BUN/Creatinine Ratio 21 (6-26); Basophils # 0.1 K/mcL (0.0-0.2); Basophils % 0.5 %; Blood Urea Nitrogen 7 mg/dL (6-20); Calcium 8.9 mg/dL (8.6-10.3); Carbon Dioxide 32 mEq/L (23-29); Chloride 90 mEq/L (98-107); Eosinophils # 0.5 K/mcL (0.0-0.6); Eosinophils % 3.1 %; Glucose 90 mg/dL (70-105); Hematocrit 29.1 % (35.3-44.9); Hemoglobin 9.4 g/dL (11.5-15.4); Immature Granulocytes % 2.4 % (0-4); Lymphocytes % 11.8 %; Mean Corpuscular HGB Conc 32.3 g/dL (31.6-35.5); Mean Corpuscular Hemoglobin 30.5 pg (28.0-33.3); Mean Corpuscular Volume 94.5 fL (83.0-100.0); Mean Platelet Volume 10.6 fL (9.4-12.4); Monocytes % 6.1 %; Neutrophils # 12.6 K/mcL (1.6-8.9); Osmolality,Calculated 268 (280-300); Platelet Count 281 K/mcL (140-400); Potassium 3.8 mEq/L (3.5-5.1); Red Blood Count 3.08 M/mcL (3.82-4.97); Red Cell Distribution Width 13.8 % (11.5-14.5); Segmented Neutrophils % 76.1 %; Sodium 130 mEq/L (136-145); White Blood Count 16.5 K/mcL (4.3-11.1); eGFR For African Americans > 60 (> 60); eGFR For Non-African Americans > 60 (> 60)
[2019-03-07] MEDS: Ipratropium/Albuterol Neb 3 ML IH SCH ×6 (04:21→23:33)
[2019-03-07 04:45] LABS: Platelet Estimate Normal (Normal)
[2019-03-07] MEDS: Levothyroxine 25 MCG TABLET PO SCH (06:01)
[2019-03-07] MEDS: Budesonide/Formoterol 160/4.5 1 PUFF INH IH SCH ×2 (07:49→20:10)
[2019-03-07] MEDS: Gabapentin 300 MG CAPSULE PO SCH ×3 (08:44→21:19)
[2019-03-07] MEDS: tiZANidine 4 MG TABLET PO PRN (08:44)
[2019-03-07] MEDS: Acetaminophen 325 MG TABLET PO PRN ×2 (08:45→16:39)
[2019-03-07] MEDS: *HR* Heparin 5,000 UNIT/ML VIAL SQ SCH ×3 (08:45→23:58)
[2019-03-07] MEDS: amLODIPine 5 MG TABLET PO SCH (08:45)
--- NOTE | 2019-03-07 14:44 | Internal Med Progress Note ---
Hospitalist Progress Note - Encounter Date of Encounter: 03/07/19 Time of Encounter: 09:30 - Subjective Interval History: When seen today patient was complaining of overnight diarrhea - Exam Vitals: Temp Pulse Resp BP Pulse Ox 97.4 F L 94 18 102/65 94 03/07/19 11:24 03/07/19 11:24 03/07/19 11:24 03/07/19 11:24 03/07/19 11:24 Exam: GENERAL APPEARANCE: Well developed, well nourished, alert and cooperative, and appears to be in no acute distress. HEAD: normocephalic. EYES: vision is grossly intact. EARS: hearing grossly intact. NOSE: No nasal discharge. THROAT: Oral cavity and pharynx normal. No inflammation, swelling, exudate, or lesions. Teeth and gingiva in good general condition. NECK: Neck supple, non-tender without lymphadenopathy, masses or thyromegaly. CARDIAC: Normal S1 and S2. No S3, S4 or murmurs. Rhythm is regular. There is no peripheral edema, cyanosis or pallor. Extremities are warm and well perfused. Capillary refill is less than 2 seconds. No carotid bruits. LUNGS: Mild end expiratory wheezing bilaterally. ABDOMEN: Positive bowel sounds. Soft, nondistended. Mild diffuse subjective tenderness with deep palpation. No guarding or rebound. No masses. EXTREMITIES: No significant deformity or joint abnormality. No edema. Peripheral pulses intact. LOWER EXTREMITY: Examination of both feet reveals all toes to be normal in size and symmetry, normal range of motion, normal sensation with distal capillary filling of less than 2 seconds without tenderness, swelling, discoloration, nodules, weakness or deformity. SKIN: Skin normal color, texture and turgor with no lesions or eruptions. PSYCHIATRIC: The mental examination revealed the patient was oriented to person, place, and time. - Assessment and Plan (1) HCAP (healthcare-associated pneumonia) Current Visit: Yes Status: Acute Assessment and Plan: SIRS criteria met on admission: WBC > 12, HR > 90, suspected source of infection is PNA. White blood cell count improved from 28 down to 18.5 today. Patient's vital signs are been stable. CTA chest concerning for LLL lingular PNA and bronchiolitis. Negative legionella and strep pneumo urine antigens. Sputum culture and gram stain show few gram positive cocci on preliminary report. BCx incubating, no growth recorded. WBC continues to improve, currently 16.5. Plan: - Continue with azithromycin day #5. - Blood cultures NGTD. - Continue to monitor for worsening signs of infection. - Plan for discharge tomorrow if WBC continues to improve. (2) Acute and chronic respiratory failure with hypoxia Current Visit: Yes Status: Acute Assessment and Plan: Acute on chronic respiratory failure with hypoxia d/t healthcare-acquired PNA in the setting of COPD on 2L home oxygen. Reported SpO2 83% on 2L oxygen, improved to 96% on 3L when pt arrived at [facility]. CTA chest concerning for LLL lingular PNA and bronchiolitis, no evidence suggesting PE. Received ceftriaxone, azithromycin, Solu-Medrol, and duonebs at [place]. Doubt COPD exacerbation Plan: - Continue DuoNebs, Symbicort, supplemental oxygen. (3) COPD (chronic obstructive pulmonary disease) Current Visit: Yes Status: Chronic Assessment and Plan: Doesn't appear to be in acute exacerbation. Uses 2L O2 at home. Continue scheduled duonebs and symbicort. No steroids at this time. (4) Hyponatremia Current Visit: Yes Status: Resolved Assessment and Plan: Resolved On admission Na 128, baseline around 132. Improved with IV fluids. Chronic hyponatremia possibly d/t poor intake related to alcohol abuse. Sodium currently at 136. Plan: - Stable. (5) Anemia Current Visit: Yes Status: Acute Assessment and Plan: Chronic, likely related to poor nutritional status. Hgb 9.4 on presentation, recent baseline 9-10. No signs of acute bleed. Plan: - Will continue to monitor. (6) Hypertension Current Visit: Yes Status: Chronic Assessment and Plan: Controlled. Continue amlodipine and metoprolol. (7) Compression fracture of body of thoracic vertebra Current Visit: Yes Status: Acute Assessment and Plan: Severe anterior compression fracture of T12 with retropulsed component contributing to spinal stenosis was seen on CTA. Chronicity unknown. May be worked up as outpatient. (8) Tobacco dependence Current Visit: Yes Status: Chronic Assessment and Plan: Currently smokes 2 ppd. Cessation encouraged. (9) Alcohol abuse Current Visit: No Status: Acute Assessment and Plan: Counseled on cessation. DVT Prophylaxis: heparin subQ - Time Spent with Patient Total time spent is greater than 50% in coordination of care (as documented) at patient's floor/unit and/or counseling patient: Internal Medicine: Result - Labs CBC & Chem 7: 03/07/19 03:38 03/07/19 03:38 Labs: Short CBC 03/07/19 Range/Units 03:38 WBC 16.5 H (4.3-11.1) K/mcL Hgb 9.4 L (11.5-15.4) g/dL Hct 29.1 L (35.3-44.9) % Plt Count 281 D (140-400) K/mcL Neutrophils # 12.6 H (1.6-8.9) K/mcL BMP 03/07/19 03:38 Sodium 130 L Potassium 3.8 Chloride 90 L Carbon Dioxide 32 H BUN 7 Creatinine 0.33 L Glucose 90 Calcium 8.9 - ABG Interpretation ABG results: PT/INR, D-dimer PT 12.1 Seconds (9.4-12.1) 03/04/19 00:50 Consult Discharge Plan - Plan Referrals: Terrie Joseph, [employer] [Primary Care Provider] - (Appointment has been requested.) (3) COPD (chronic obstructive pulmonary disease) Qualifiers: COPD type: COPD with acute exacerbation Qualified Code(s): J44.1 - Chronic obstructive pulmonary disease with (acute) exacerbation (5) Anemia Qualifiers: Anemia type: unspecified type Qualified Code(s): D64.9 - Anemia, unspecified (6) Hypertension Qualifiers: Hypertension type: essential hypertension Qualified Code(s): I10 - Essential (primary) hypertension
[2019-03-07] MEDS ORDERED: hydrOXYzine pamoate 25 MG CAPSULE PO PRN (17:24)
[2019-03-07] MEDS: Magnesium Oxide 400 MG TABLET PO SCH (21:19)
[2019-03-07] MEDS: traZODone 50 MG TABLET PO SCH (21:19)
[2019-03-07] MEDS: Mirtazapine 15 MG TABLET PO SCH (21:19)
[2019-03-08 02:47] LABS: Mean Corpuscular Hemoglobin 29.7 pg (28.0-33.3)
[2019-03-08 02:49] LABS: Hematocrit 27.8 % (35.3-44.9); Hemoglobin 8.8 g/dL (11.5-15.4); Mean Corpuscular HGB Conc 31.7 g/dL (31.6-35.5); Mean Corpuscular Volume 93.9 fL (83.0-100.0); Red Blood Count 2.96 M/mcL (3.82-4.97); Red Cell Distribution Width 13.9 % (11.5-14.5)
[2019-03-08 03:07] LABS: BUN/Creatinine Ratio 37 (6-26); Blood Urea Nitrogen 10 mg/dL (6-20); Calcium 8.9 mg/dL (8.6-10.3); Carbon Dioxide 27 mEq/L (23-29); Chloride 87 mEq/L (98-107); Glucose 82 mg/dL (70-105); Osmolality,Calculated 262 (280-300); Potassium 4.1 mEq/L (3.5-5.1); Sodium 127 mEq/L (136-145); eGFR For African Americans > 60 (> 60); eGFR For Non-African Americans > 60 (> 60)
[2019-03-08] MEDS: Azithromycin 500 MG in D5% in Water 250 ML IVPB SCH (03:26)
[2019-03-08] MEDS: Ipratropium/Albuterol Neb 3 ML IH SCH ×6 (03:35→23:29)
[2019-03-08 04:38] LABS: Basophils # 0.1 K/mcL (0.0-0.2); Basophils % 0.2 %; Eosinophils # 0.5 K/mcL (0.0-0.6); Eosinophils % 1.6 %; Hematocrit 28.7 % (35.3-44.9); Hemoglobin 9.2 g/dL (11.5-15.4); Immature Granulocytes % 2.2 % (0-4); Lymphocytes # 2.2 K/mcL (0.6-4.6); Mean Corpuscular HGB Conc 32.1 g/dL (31.6-35.5); Mean Corpuscular Hemoglobin 29.3 pg (28.0-33.3); Mean Corpuscular Volume 91.4 fL (83.0-100.0); Monocytes % 3.2 %; Red Blood Count 3.14 M/mcL (3.82-4.97); Red Cell Distribution Width 13.7 % (11.5-14.5); Segmented Neutrophils % 85.8 %
[2019-03-08 04:39] LABS: Mean Platelet Volume 9.6 fL (9.4-12.4)
[2019-03-08 04:40] LABS: Neutrophils # 27.5 K/mcL (1.6-8.9)
[2019-03-08 05:04] LABS: Platelet Estimate Normal (Normal)
[2019-03-08] MEDS: Levothyroxine 25 MCG TABLET PO SCH (05:35)
[2019-03-08] MEDS: Budesonide/Formoterol 160/4.5 1 PUFF INH IH SCH ×2 (08:20→19:50)
[2019-03-08] MEDS: Acetaminophen 325 MG TABLET PO PRN ×2 (09:09→20:19)
[2019-03-08] MEDS: Gabapentin 300 MG CAPSULE PO SCH ×3 (09:09→20:16)
[2019-03-08] MEDS: Magnesium Oxide 400 MG TABLET PO SCH ×3 (09:09→20:15)
[2019-03-08] MEDS: tiZANidine 4 MG TABLET PO PRN (09:10)
[2019-03-08] MEDS: Loratadine 10 MG TABLET PO SCH (09:10)
[2019-03-08] MEDS: *HR* Heparin 5,000 UNIT/ML VIAL SQ SCH ×3 (09:10→23:07)
[2019-03-08] MEDS: amLODIPine 5 MG TABLET PO SCH (09:10)
--- NOTE | 2019-03-08 11:49 | Internal Med Progress Note ---
<Radha Hernandez - Last Filed: 03/08/19 15:53> Hospitalist Progress Note - Encounter Date of Encounter: 03/08/19 Time of Encounter: 10:20 - Subjective Interval History: Patient resting comfortably in bed. Her cough is at baseline, scant sputum production. Some loose bowel movements yesterday, but pt states it was not diarrhea and hasn't had any bowel movements yet today. Denies feeling short of breath. No fevers/chills. - Exam Vitals: Temp Pulse Resp BP Pulse Ox 98.7 F 68 16 94/63 96 03/08/19 10:56 03/08/19 10:56 03/08/19 11:46 03/08/19 10:56 03/08/19 11:46 Exam: General: No acute distress, resting comfortably in bed, vitals noted. HEENT: head normocephalic/atraumatic, EOMI, PERRL, sclera anicteric Neck: Supple, no lymphadenopathy Cardio: RRR, no murmurs, +S1/S2 Pulm: decreased breath sounds bilaterally, no wheezes, faint crackles on left, Normal respiratory effort. Abdomen: soft, nontender, active bowel sounds Extremities: No LE edema, no cyanosis, no clubbing, thin Neuro: AAOx3, no focal deficits, mentating well, CN II-XII grossly intact, moves all extremities spontaneously Skin: clean, dry, intact Psych: Appropriate mood and affect. - Assessment and Plan (1) HCAP (healthcare-associated pneumonia) Current Visit: Yes Status: Acute Assessment and Plan: Clinically improving SIRS criteria met on admission: WBC > 12, HR > 90, Tmax 100.9 with suspected source of infection is PNA. Discharged from [facility] earlier this month, was admitted for acute colitis and discharged to facility for rehab. CTA chest concerning for LLL lingular PNA and bronchiolitis. Procalcitonin elevated on admission, repeat shows improvement and is WNL. Negative legionella and strep pneumo urine antigens. Sputum culture and gram stain show normal respiratory shorty, negative for pathogens. BCx incubating, no growth recorded. Check 2V CXR Continuing on azithromycin (2) Leukocytosis Current Visit: No Status: Acute Assessment and Plan: WBC 39.8 on admission, was trending downwards, but suddenly increased today. Reason for increased WBC is unclear, pt has been clinically improving--procalcitonin decreased to WNL, no fever today, no diarrhea. Peripheral blood smear showed leukocytosis with neutrophilia and toxic changes--as would be expected in this patient given her PNA. Will continue to monitor with morning labs and watch for other signs of w orsening infection. Consider hematology consult. (3) Acute and chronic respiratory failure with hypoxia Current Visit: Yes Status: Acute Assessment and Plan: Acute on chronic respiratory failure with hypoxia d/t healthcare-acquired PNA in the setting of COPD on 2L home oxygen Reported SpO2 83% on 2L oxygen, improved to 96% on 3L when pt arrived at [facility]. CTA chest concerning for LLL lingular PNA and bronchiolitis, no evidence suggesting PE. Received ceftriaxone, azithromycin, Solu-Medrol, and duonebs at [facility]. Current abx treatment with azithromycin. Anticipate improvement with continued treatment for PNA, continue current abx. Continue DuoNebs, Symbicort, supplemental oxygen. (4) COPD (chronic obstructive pulmonary disease) Current Visit: Yes Status: Chronic Assessment and Plan: Doesn't appear to be in acute exacerbation. Uses 2L O2 at home. Continue scheduled duonebs and symbicort. No steroids at this time. (5) Hyponatremia Current Visit: Yes Status: Chronic Assessment and Plan: Chronic hyponatremia possibly d/t poor intake related to alcohol abuse. Continue to monitor (6) Anemia Current Visit: Yes Status: Chronic Assessment and Plan: Chronic, likely related to poor nutrition and component of iron deficiency. Hgb stable, appears to be within her baseline of 9-10 Continue iron supplement No signs of acute bleed. (7) Hypertension Current Visit: Yes Status: Chronic Assessment and Plan: Controlled. Continue amlodipine and metoprolol. (8) Compression fracture of body of thoracic vertebra Current Visit: Yes Status: Acute Assessment and Plan: Severe anterior compression fracture of T12 with retropulsed component contributing to spinal stenosis was seen on CTA. Chronicity unknown. May be worked up as outpatient. (9) Tobacco dependence Current Visit: Yes Status: Chronic Assessment and Plan: Currently smokes 2 ppd. Cessation encouraged. (10) Alcohol abuse Current Visit: No Status: Chronic DVT Prophylaxis: heparin subQ - Time Spent with Patient Total time spent is greater than 50% in coordination of care (as documented) at patient's floor/unit and/or counseling patient: Internal Medicine: Result - Labs CBC & Chem 7: 03/08/19 03:55 03/08/19 01:33 Labs: Short CBC 03/08/19 03/08/19 Range/Units 01:33 03:55 WBC 30.0 H* D 32.0 H* (4.3-11.1) K/mcL Hgb 8.8 L 9.2 L (11.5-15.4) g/dL Hct 27.8 L 28.7 L (35.3-44.9) % Plt Count TNP TNP Neutrophils # 27.5 H (1.6-8.9) K/mcL BMP 03/08/19 01:33 Sodium 127 L Potassium 4.1 Chloride 87 L Carbon Dioxide 27 BUN 10 Creatinine 0.27 L Glucose 82 Calcium 8.9 - ABG Interpretation ABG results: PT/INR, D-dimer PT 12.1 Seconds (9.4-12.1) 03/04/19 00:50 Consult Discharge Plan - Plan Referrals: Terrie Joseph, [employer] [Primary Care Provider] - (Appointment has been requested.) <Aneesh Pedro - Last Filed: 03/08/19 16:43> Hospitalist Progress Note - Encounter Date of Encounter: 03/08/19 - Exam Vitals: Temp Pulse Resp BP Pulse Ox 98.5 F 109 16 126/77 99 03/08/19 15:17 03/08/19 15:17 03/08/19 15:50 03/08/19 15:17 03/08/19 15:50 - Assessment and Plan (1) Hypertension Current Visit: Yes Status: Chronic (2) DVT prophylaxis Current Visit: No Status: Acute (3) Pneumonia Current Visit: No Status: Suspected (4) COPD (chronic obstructive pulmonary disease) Current Visit: Yes Status: Chronic (5) Hyponatremia Current Visit: No Status: Acute (6) Acute and chronic respiratory failure with hypoxia Current Visit: Yes Status: Acute (7) Hypothyroidism Current Visit: No Status: Chronic (8) Anemia Current Visit: Yes Status: Acute - Time Spent with Patient Total time spent is greater than 50% in coordination of care (as documented) at patient's floor/unit and/or counseling patient: Internal Medicine: Result - Labs CBC & Chem 7: 03/08/19 03:55 03/08/19 01:33 Labs: Short CBC 03/08/19 03/08/19 Range/Units 01:33 03:55 WBC 30.0 H* D 32.0 H* (4.3-11.1) K/mcL Hgb 8.8 L 9.2 L (11.5-15.4) g/dL Hct 27.8 L 28.7 L (35.3-44.9) % Plt Count TNP TNP Neutrophils # 27.5 H (1.6-8.9) K/mcL BMP 03/08/19 01:33 Sodium 127 L Potassium 4.1 Chloride 87 L Carbon Dioxide 27 BUN 10 Creatinine 0.27 L Glucose 82 Calcium 8.9 - ABG Interpretation ABG results: PT/INR, D-dimer PT 12.1 Seconds (9.4-12.1) 03/04/19 00:50 - Impressions Impressions Chest X-Ray 03/08/19 13:37 IMPRESSION: Slightly increased airspace opacities within the lingula, nonspecific which may reflect pneumonia in the appropriate clinical setting or could reflect resolving pneumonia. D/ / Keke Daniels MD / Keke Daniels MD Interpreting Provider: Keke Daniels MD - Attending Attestation I examined this patient and my medical decision-making was reviewed with the Resident Physician. I agree with the documented findings, disposition and treatment plan as described except to the extent set forth below. Patient seen and examined at bedside. Patient states that she feels pretty good today. She feels like her breathing is at baseline. She reports mild abdominal pain that is chronic for her. She denies any new abdominal pain. She denies any diarrhea, cough, fever, chills. On exam her lungs are diminished but clear to auscultation bilaterally, no rales, rhonchi, wheezes. Abdomen is soft, nontender, nondistended. In general she appears nontoxic. Leukocytosis: Patient had worsening of her leukocytosis today up to 32 this morning. Neutrophil predominant. She did have a peripheral smear that showed neutrophilia with toxic changes. At this point unsure of this etiology, she does not appear infectious process. Plan to recheck in the morning, if not improving consider oncology consult. Pneumonia: Overall appears to be improving, doubt that this is related to her worsening leukocytosis as clinically she is much improved and her pro-calcitonin has improved as well. <Radha Hernandez - Last Filed: 03/08/19 15:53> (2) Leukocytosis Qualifiers: Leukocytosis type: unspecified Qualified Code(s): D72.829 - Elevated white blood cell count, unspecified (4) COPD (chronic obstructive pulmonary disease) Qualifiers: COPD type: COPD with acute exacerbation Qualified Code(s): J44.1 - Chronic obstructive pulmonary disease with (acute) exacerbation (6) Anemia Qualifiers: Anemia type: iron deficiency Qualified Code(s): D50.8 - Other iron deficiency anemias (7) Hypertension Qualifiers: Hypertension type: essential hypertension Qualified Code(s): I10 - Essential (primary) hypertension <Aneesh Pedro - Last Filed: 03/08/19 16:43> (1) Hypertension Qualifiers: Hypertension type: essential hypertension Qualified Code(s): I10 - Essential (primary) hypertension (3) Pneumonia Qualifiers: Pneumonia type: due to other aerobic Gram-negative bacteria Laterality: bilateral Lung location: lower lobe of lung Qualified Code(s): J15.6 - Pneumonia due to other Gram-negative bacteria (4) COPD (chronic obstructive pulmonary disease) Qualifiers: COPD type: COPD with acute exacerbation Qualified Code(s): J44.1 - Chronic obstructive pulmonary disease with (acute) exacerbation (7) Hypothyroidism Qualifiers: Hypothyroidism type: acquired Qualified Code(s): E03.9 - Hypothyroidism, unspecified (8) Anemia Qualifiers: Anemia type: unspecified type Qualified Code(s): D64.9 - Anemia, unspecified
[2019-03-08] MEDS ORDERED: Ketorolac 15 MG/ML VIAL IVP ONE (15:29)
[2019-03-08] MEDS: traZODone 50 MG TABLET PO SCH (20:14)
[2019-03-08] MEDS: Mirtazapine 15 MG TABLET PO SCH (20:15)
[2019-03-09 02:30] LABS: Basophils % 0.2 %; Red Cell Distribution Width 13.8 % (11.5-14.5)
[2019-03-09 02:32] LABS: Basophils # 0.1 K/mcL (0.0-0.2); Eosinophils % 2.2 %; Hematocrit 25.4 % (35.3-44.9); Hemoglobin 8.3 g/dL (11.5-15.4); Immature Granulocytes % 3.4 % (0-4); Lymphocytes % 6.9 %; Mean Corpuscular HGB Conc 32.7 g/dL (31.6-35.5); Mean Corpuscular Hemoglobin 29.6 pg (28.0-33.3); Mean Corpuscular Volume 90.7 fL (83.0-100.0); Mean Platelet Volume 12.2 fL (9.4-12.4); Monocytes # 1.3 K/mcL (0.0-1.3); Monocytes % 4.5 %; Platelet Count 164 K/mcL (140-400); Segmented Neutrophils % 82.8 %; White Blood Count 29.3 K/mcL (4.3-11.1)
[2019-03-09 02:40] LABS: Eosinophils # 0.6 K/mcL (0.0-0.6); Neutrophils # 24.3 K/mcL (1.6-8.9)
[2019-03-09 02:45] LABS: BUN/Creatinine Ratio 40 (6-26); Blood Urea Nitrogen 12 mg/dL (6-20); Calcium 8.5 mg/dL (8.6-10.3); Carbon Dioxide 28 mEq/L (23-29); Chloride 83 mEq/L (98-107); Glucose 81 mg/dL (70-105); Osmolality,Calculated 251 (280-300); Potassium 4.5 mEq/L (3.5-5.1); Sodium 121 mEq/L (136-145); eGFR For African Americans > 60 (> 60); eGFR For Non-African Americans > 60 (> 60)
[2019-03-09] MEDS: Azithromycin 500 MG in D5% in Water 250 ML IVPB SCH (03:23)
[2019-03-09] MEDS: Ipratropium/Albuterol Neb 3 ML IH SCH ×6 (04:20→23:34)
[2019-03-09 04:27] LABS: Platelet Estimate Normal (Normal)
[2019-03-09] MEDS: Levothyroxine 25 MCG TABLET PO SCH (05:24)
--- NOTE | 2019-03-09 07:41 | Discharge Summary ---
Orders not resulted at time of discharge: Pending orders 03/08/19 07:10 Culture,Blood [BC] Routine Date of Encounter: 03/09/19 Time of Encounter: 09:20 - Discharge Diagnosis (1) HCAP (healthcare-associated pneumonia) Priority: Primary Status: Acute (2) Acute and chronic respiratory failure with hypoxia Priority: Primary Status: Acute (3) COPD (chronic obstructive pulmonary disease) Priority: Secondary Status: Chronic Qualifiers: COPD type: COPD with acute exacerbation Qualified Code(s): J44.1 - Chronic obstructive pulmonary disease with (acute) exacerbation (4) Hyponatremia Priority: Primary Status: Chronic (5) Anemia Priority: Secondary Status: Acute Qualifiers: Anemia type: unspecified type Qualified Code(s): D64.9 - Anemia, unspecified (6) Hypertension Priority: Secondary Status: Chronic Qualifiers: Hypertension type: essential hypertension Qualified Code(s): I10 - Essential (primary) hypertension (7) Compression fracture of body of thoracic vertebra Priority: Secondary Status: Acute (8) Tobacco dependence Priority: Secondary Status: Chronic (9) Alcohol abuse Priority: Secondary Status: Acute Hospital course: Ms. Rodriguez is a 58 year old female past medical history of COPD, alcohol abuse, hypertension, liver disease who initially presented to [facility] due to complaints of shortness of breath and cough for the past 4 days. Patient was recently discharged from [place] earlier this month after hospitalization for acute colitis and had been undergoing rehabilitation at a facility. Per reports patient was found to have low O2 saturations of 83% on her baseline 2 L of oxygen and a fever of 101. On arrival to [facility] patient had a heart rate of 120, blood pressure 110/72 and was saturating at 96% on 3 L nasal cannula. Laboratory workup was notable for a leukocytosis of 33.7, hyponatremia. CTA of the chest was performed which showed no evidence of PE. There was interstitial thickening consistent with a multifocal inflammatory or infectious bronchiolitis as well as a small mark-peripheral consolidation within the lingula concerning for pneumonia. Blood cultures were taken and have shown no growth to date. Negative legionella and strep pneumo urine antigens. Sputum culture and gram stain show normal respiratory shorty, negative for pathogens. Patient was started on azithromycin for atypical coverage and started showing improvement. Her WBC was downtrending, did have a spike in WBC count for a day for unknown etiology, but has been steadily downtrending since. Patient does have chronic hyponatremia with a baseline from 127-30, likely due to hypovolemia and poor PO intake. Her sodium dropped to 121 today, however she is not presenting with any neurologic symptoms. Repeat sodium was ordered. Patient will need to do a repeat BMP in 3 days to assess her sodium level. Will discharge her with sodium tablets. When seen today, patient denied any chest pain or SOB. She admitted to mild abdominal discomfort which has been a chronic issue for her. She denies any nausea or vomiting. Denies any swelling in her LE. Patient has completed a total of 6 days of IV azithromycin. Patient to follow-up with her PCP in the next 3-5 days. - Time Spent with Patient Total time spent providing and/or coordinating discharge services: Time spent: Greater than 30 minutes - Discharge Medications Prescriptions: Continued Escitalopram [Lexapro] 10 mg PO DAILY Meloxicam [Mobic] 15 mg PO DAILY Levothyroxine Sodium [Tirosint] 25 mcg PO QAM Cetirizine HCl [24Hour Allergy] 10 mg PO DAILY hydrOXYzine HCl [Hydroxyzine HCl] 25 mg PO TID PRN PRN Reason: Itching Fluticasone Propionate Nasal [Flonase] 1 spr NS DAILY Mirtazapine 7.5 mg PO HS Trazodone HCl 50 mg PO HS Gabapentin [Neurontin] 300 mg PO TID Albuterol Sulfate [Albuterol Inhaler] 2 puff IH Q4H PRN PRN Reason: Shortness Of Breath Budesonide/Formoterol 160/4.5 [Symbicort 160/4.5] 2 puff IH BIDR Ipratropium/Albuterol Sulfate [Combivent Respimat 20-100 Mcg] 1 puff IH Q6H PRN PRN Reason: Shortness Of Breath Tizanidine HCl 2 mg PO Q8H PRN PRN Reason: Muscle Spasm amLODIPine [Norvasc] 5 mg PO DAILY #30 tablet Albuterol Neb [Proventil Neb] 2.5 mg IH Q4H PRN PRN Reason: Shortness Of Breath Fluticasone/Umeclidin/Vilanter [Trelegy Ellipta 100-62.5-25] 1 puff PO DAILY Ferrous Sulfate 325 mg PO BIDWM #60 tablet Magnesium Oxide [Mag-Ox] 400 mg PO TID #90 tablet Cholecalciferol (D-3) [Vitamin D] 1,000 unit PO DAILY #30 tablet Metoprolol [Lopressor] 25 mg PO BID Acetaminophen [Extra Strength Non-Aspirin] 500 mg PO Q6H PRN PRN Reason: Pain Buspirone HCl [Buspar] 15 mg PO BID Guaifenesin [Cough Syrup] 100 mg PO Q6H PRN PRN Reason: Cough Omeprazole [PriLOSEC] 20 mg PO DAILY Home Medications: Escitalopram [Lexapro] 10 mg PO DAILY 12/30/17 [History] Cetirizine HCl [24Hour Allergy] 10 mg PO DAILY 09/14/18 [History] Levothyroxine Sodium [Tirosint] 25 mcg PO QAM 09/14/18 [History] Meloxicam [Mobic] 15 mg PO DAILY 09/14/18 [History] hydrOXYzine HCl [Hydroxyzine HCl] 25 mg PO TID PRN 12/07/18 [History] Fluticasone Propionate Nasal [Flonase] 1 spr NS DAILY 12/08/18 [History] Mirtazapine 7.5 mg PO HS 12/08/18 [History] Trazodone HCl 50 mg PO HS 12/08/18 [History] Gabapentin [Neurontin] 300 mg PO TID 12/22/18 [History] Albuterol Sulfate [Albuterol Inhaler] 2 puff IH Q4H PRN 01/17/19 [History] Budesonide/Formoterol 160/4.5 [Symbicort 160/4.5] 2 puff IH BIDR 01/17/19 [History] Ipratropium/Albuterol Sulfate [Combivent Respimat 20-100 Mcg] 1 puff IH Q6H PRN 01/17/19 [History] Tizanidine HCl 2 mg PO Q8H PRN 01/17/19 [History] amLODIPine [Norvasc] 5 mg PO DAILY #30 tablet 01/23/19 [Rx] Albuterol Neb [Proventil Neb] 2.5 mg IH Q4H PRN 02/10/19 [History] Fluticasone/Umeclidin/Vilanter [Trelegy Ellipta 100-62.5-25] 1 puff PO DAILY 02/10/19 [History] Cholecalciferol (D-3) [Vitamin D] 1,000 unit PO DAILY #30 tablet 02/14/19 [Rx] Ferrous Sulfate 325 mg PO BIDWM #60 tablet 02/14/19 [Rx] Magnesium Oxide [Mag-Ox] 400 mg PO TID #90 tablet 02/14/19 [Rx] Acetaminophen [Extra Strength Non-Aspirin] 500 mg PO Q6H PRN 03/04/19 [History] Buspirone HCl [Buspar] 15 mg PO BID 03/04/19 [History] Guaifenesin [Cough Syrup] 100 mg PO Q6H PRN 03/04/19 [History] Metoprolol [Lopressor] 25 mg PO BID 03/04/19 [History] Omeprazole [PriLOSEC] 20 mg PO DAILY 03/04/19 [History] Allergies/Adverse Reactions: Allergy/AdvReac Type Severity Reaction Status Date / Time No Known Allergies Allergy Verified 02/10/19 21:37 Date of admission: 03/04/19 00:13 Primary care physician: Terrie Joseph CNP Consults: 03/04/19 06:50 Consult to Physical Therapy [CONS] Routine Comment: Evaluate, develop and implement POC Reason for Consult: Patient reporting lower extremity weakness secondary to deconditioning. Does patient have active BEDREST order?: No Is patient medically & hemodynamically stable?: Yes 03/06/19 09:31 Consult to Occupational Therapy [CONS] Routine Comment: Evaluate, develop and implement POC Reason for Consult: DECONDITIONING Does patient have active BEDREST order?: No Is patient medically & hemodynamically stable?: Yes 03/06/19 09:34 Consult to Nurse Navigator [CONS] Routine Comment: PNEUMONIA, COPD 03/06/19 09:36 Consult to Aircraft Charter Dispatcher [CONS] Routine Reason for SW Consult: PATIENT FROM [facility] [place] Discharging clinician: Sergei Lyons Anticipated date of discharge: 03/09/19 - Constitutional Vitals: Temp Pulse Resp BP Pulse Ox 99.1 F 88 16 119/72 99 03/09/19 07:00 03/09/19 07:00 03/09/19 07:00 03/09/19 07:00 03/09/19 07:00 Exam: GENERAL APPEARANCE: Well developed, well nourished, alert and cooperative, and appears to be in no acute distress. HEAD: normocephalic. EYES: vision is grossly intact. EARS: hearing grossly intact. NOSE: No nasal discharge. THROAT: Oral cavity and pharynx normal. No inflammation, swelling, exudate, or lesions. Teeth and gingiva in good general condition. NECK: Neck supple, non-tender without lymphadenopathy, masses or thyromegaly. CARDIAC: Normal S1 and S2. No S3, S4 or murmurs. Rhythm is regular. There is no peripheral edema, cyanosis or pallor. Extremities are warm and well perfused. Capillary refill is less than 2 seconds. No carotid bruits. LUNGS: Mild end expiratory wheezing bilaterally. ABDOMEN: Positive bowel sounds. Soft, nondistended. Mild diffuse subjective tenderness with deep palpation. No guarding or rebound. No masses. EXTREMITIES: No significant deformity or joint abnormality. No edema. Peripheral pulses intact. LOWER EXTREMITY: Examination of both feet reveals all toes to be normal in size and symmetry, normal range of motion, normal sensation with distal capillary filling of less than 2 seconds without tenderness, swelling, discoloration, nodules, weakness or deformity. NEUROLOGY: no focal weakness. SKIN: Skin normal color, texture and turgor with no lesions or eruptions. PSYCHIATRIC: The mental examination revealed the patient was oriented to person, place, and time. - Patient Status Disposition: Transfer SNF Condition: Fair Overall status at discharge: patient is progressing back to baseline - Discharge Instructions Instructions: Pneumonia (DC) Follow Up With: Terrie Joseph CNP [Primary Care Provider] - (Appointment has been requested.) - Diet and Activity Activity: as per physical therapy Diet: low fat, low cholesterol
[2019-03-09] MEDS: Budesonide/Formoterol 160/4.5 1 PUFF INH IH SCH ×2 (07:53→19:44)
[2019-03-09] MEDS: Loratadine 10 MG TABLET PO SCH (09:07)
[2019-03-09] MEDS: amLODIPine 5 MG TABLET PO SCH (09:08)
[2019-03-09] MEDS: Magnesium Oxide 400 MG TABLET PO SCH ×3 (09:08→20:09)
[2019-03-09] MEDS: Gabapentin 300 MG CAPSULE PO SCH ×3 (09:08→20:10)
[2019-03-09] MEDS: *HR* Heparin 5,000 UNIT/ML VIAL SQ SCH ×2 (09:15→16:14)
[2019-03-09] MEDS: tiZANidine 4 MG TABLET PO PRN (11:11)
[2019-03-09] MEDS ORDERED: 0.9 % Sodium Chloride 1,000 ML IVC SCH (12:30)
--- NOTE | 2019-03-09 13:10 | Internal Med Progress Note ---
<Sergei Lyons - Last Filed: 03/09/19 14:36> Hospitalist Progress Note - Encounter Date of Encounter: 03/09/19 Time of Encounter: 09:30 - Subjective Interval History: When seen today, patient denied any chest pain or SOB. She admitted to some minor abdominal discomfort that has been chronic however she denies any nausea or vomiting. She denies any swelling in her LE. Denies any focal weakness. - Exam Vitals: Temp Pulse Resp BP Pulse Ox 96.3 F L 79 16 94/64 100 03/09/19 12:13 03/09/19 12:13 03/09/19 12:13 03/09/19 12:13 03/09/19 12:13 Exam: GENERAL APPEARANCE: Well developed, well nourished, alert and cooperative, and appears to be in no acute distress. HEAD: normocephalic. EYES: vision is grossly intact. EARS: hearing grossly intact. NOSE: No nasal discharge. THROAT: Oral cavity and pharynx normal. No inflammation, swelling, exudate, or lesions. NECK: Neck supple, non-tender without lymphadenopathy, masses or thyromegaly. CARDIAC: Normal S1 and S2. No S3, S4 or murmurs. Rhythm is regular. There is no peripheral edema, cyanosis or pallor. Extremities are warm and well perfused. Capillary refill is less than 2 seconds. No carotid bruits. LUNGS: Clear to auscultation and percussion without rales, rhonchi, wheezing or diminished breath sounds. ABDOMEN: Positive bowel sounds. Soft, nondistended, mild subjective tenderness with palpation. No guarding or rebound. No masses. EXTREMITIES: No significant deformity or joint abnormality. No edema. Peripheral pulses intact. No varicosities. LOWER EXTREMITY: Examination of both feet reveals all toes to be normal in size and symmetry, normal range of motion, normal sensation with distal capillary filling of less than 2 seconds without tenderness, swelling, discoloration, nodules, weakness or deformity. NEUROLOGICAL: CN II-XII intact. Strength and sensation symmetric and intact throughout. Reflexes 2+ throughout. Cerebellar testing normal. SKIN: Skin normal color, texture and turgor with no lesions or eruptions. PSYCHIATRIC: The mental examination revealed the patient was oriented to person, place, and time. The patient was able to demonstrate good judgement and reason, without hallucinations, abnormal affect or abnormal behaviors during the examination. Patient is not suicidal. - Assessment and Plan (1) Hyponatremia Current Visit: Yes Status: Chronic Assessment and Plan: On admission Na 128, baseline around 130. Improved with IV fluids. Chronic hyponatremia possibly d/t poor intake related to alcohol abuse. Sodium today was noted to have declined from 127 down to 121. Repeat sodium lab showed to decrease further to 119. Patient did not exhibit any neurological symptoms at bedside. Difficult to discern whether patient appears euvolemic or hypovolemic. Plan: - Urine sodium and osmolality labs. - Start fluid restriction to 1 L per day. If labs show patient is hypovolemic tomorrow morning, will start on NS IVF. - Trend sodium levels q6H. (2) HCAP (healthcare-associated pneumonia) Current Visit: Yes Status: Acute Assessment and Plan: SIRS criteria met on admission: WBC > 12, HR > 90, suspected source of infection is PNA. White blood cell count improved from 28 down to 18.5 today. Patient's vital signs are been stable. CTA chest concerning for LLL lingular PNA and bronchiolitis. Negative legionella and strep pneumo urine antigens. Sputum culture and gram stain show few gram positive cocci on preliminary report. BCx incubating, no growth recorded. WBC did spike to 32, but then has been downtrending since. Unclear as to why her WBC increased. She has competed 6 days of azithromycin. Plan: - Stop azithromycin. - Blood cultures NGTD. - Continue to monitor for worsening signs of infection. (3) Acute and chronic respiratory failure with hypoxia Current Visit: Yes Status: Acute Assessment and Plan: Acute on chronic respiratory failure with hypoxia d/t healthcare-acquired PNA in the setting of COPD on 2L home oxygen. Reported SpO2 83% on 2L oxygen, improved to 96% on 3L when pt arrived at [facility]. CTA chest concerning for LLL lingular PNA and bronchiolitis, no evidence suggesting PE. Received ceftriaxone, azithromycin, Solu-Medrol, and duonebs at [place]. Doubt COPD exacerbation Plan: - Continue DuoNebs, Symbicort, supplemental oxygen. (4) COPD (chronic obstructive pulmonary disease) Current Visit: Yes Status: Chronic Assessment and Plan: Doesn't appear to be in acute exacerbation. Uses 2L O2 at home. Continue scheduled duonebs and symbicort. No steroids at this time. (5) Anemia Current Visit: Yes Status: Acute Assessment and Plan: Chronic, likely related to poor nutritional status. Hgb 9.4 on presentation, recent baseline 9-10. No signs of acute bleed. Plan: - Will continue to monitor. (6) Hypertension Current Visit: Yes Status: Chronic Assessment and Plan: Controlled. Continue amlodipine and metoprolol. (7) Compression fracture of body of thoracic vertebra Current Visit: Yes Status: Acute Assessment and Plan: Severe anterior compression fracture of T12 with retropulsed component c ontributing to spinal stenosis was seen on CTA. Chronicity unknown. May be worked up as outpatient. (8) Tobacco dependence Current Visit: Yes Status: Chronic Assessment and Plan: Currently smokes 2 ppd. Cessation encouraged. (9) Alcohol abuse Current Visit: No Status: Acute Assessment and Plan: Counseled on cessation. DVT Prophylaxis: heparin subQ - Time Spent with Patient Total time spent is greater than 50% in coordination of care (as documented) at patient's floor/unit and/or counseling patient: Internal Medicine: Result - Labs CBC & Chem 7: 03/09/19 01:11 03/09/19 11:33 Labs: Short CBC 03/09/19 Range/Units 01:11 WBC 29.3 H (4.3-11.1) K/mcL Hgb 8.3 L (11.5-15.4) g/dL Hct 25.4 L (35.3-44.9) % Plt Count 164 (140-400) K/mcL Neutrophils # 24.3 H (1.6-8.9) K/mcL BMP 03/09/19 03/09/19 01:11 11:33 Sodium 121 L 119 L* Potassium 4.5 Chloride 83 L Carbon Dioxide 28 BUN 12 Creatinine 0.30 L Glucose 81 Calcium 8.5 L - ABG Interpretation ABG results: PT/INR, D-dimer PT 12.1 Seconds (9.4-12.1) 03/04/19 00:50 - Impressions Impressions Chest X-Ray 03/08/19 13:37 IMPRESSION: Slightly increased airspace opacities within the lingula, nonspecific which may reflect pneumonia in the appropriate clinical setting or could reflect resolving pneumonia. D/ / Keke Daniels MD / Keke Daniels MD Interpreting Provider: Keke Daniels MD Consult Discharge Plan - Plan Instructions: Pneumonia (DC) Referrals: Terrie Joseph, COMPOUNDER [Primary Care Provider] - (Appointment has been requested.) <nAeesh Pedro - Last Filed: 03/09/19 14:48> Hospitalist Progress Note - Encounter Date of Encounter: 03/09/19 - Exam Vitals: Temp Pulse Resp BP Pulse Ox 96.3 F L 79 16 94/64 100 03/09/19 12:13 03/09/19 12:13 03/09/19 12:13 03/09/19 12:13 03/09/19 12:13 - Assessment and Plan (1) Hypertension Current Visit: Yes Status: Chronic (2) DVT prophylaxis Current Visit: No Status: Acute (3) Pneumonia Current Visit: No Status: Suspected (4) COPD (chronic obstructive pulmonary disease) Current Visit: Yes Status: Chronic (5) Hyponatremia Current Visit: No Status: Acute (6) Acute and chronic respiratory failure with hypoxia Current Visit: Yes Status: Acute (7) Hypothyroidism Current Visit: No Status: Chronic (8) Anemia Current Visit: Yes Status: Acute - Time Spent with Patient Total time spent is greater than 50% in coordination of care (as documented) at patient's floor/unit and/or counseling patient: Internal Medicine: Result - Labs CBC & Chem 7: 03/09/19 01:11 03/09/19 11:33 Labs: Short CBC 03/09/19 Range/Units 01:11 WBC 29.3 H (4.3-11.1) K/mcL Hgb 8.3 L (11.5-15.4) g/dL Hct 25.4 L (35.3-44.9) % Plt Count 164 (140-400) K/mcL Neutrophils # 24.3 H (1.6-8.9) K/mcL BMP 03/09/19 03/09/19 01:11 11:33 Sodium 121 L 119 L* Potassium 4.5 Chloride 83 L Carbon Dioxide 28 BUN 12 Creatinine 0.30 L Glucose 81 Calcium 8.5 L - ABG Interpretation ABG results: PT/INR, D-dimer PT 12.1 Seconds (9.4-12.1) 03/04/19 00:50 - Impressions Impressions Chest X-Ray 03/08/19 13:37 IMPRESSION: Slightly increased airspace opacities within the lingula, nonspecific which may reflect pneumonia in the appropriate clinical setting or could reflect resolving pneumonia. D/ / Keke Daniels MD / Keke Daniels MD Interpreting Provider: Keke Daniels MD - Attending Attestation I examined this patient and my medical decision-making was reviewed with the Resident Physician. I agree with the documented findings, disposition and treatment plan as described except to the extent set forth below. Patient seen and examined at bedside. Patient states that she feels good today. She feels like her breathing is at baseline. She denies any new abdominal pain. She denies any diarrhea, cough, fever, chills. On exam her lungs are diminished but clear to auscultation bilaterally, no rales, rhonchi, wheezes. Abdomen is soft, nontender, nondistended. Hyponatremia: Acute on chronic. Baseline appears to be around 130. Was 127 yesterday, recheck this morning is 121. Recheck shortly thereafter was 119. Patient appears euvolemic on exam. Asymptomatic. We will obtain urine osmolality and urine sodium. Start fluid restriction diet. Leukocytosis: Leukocytosis improved today, down to 29 from 32 yesterday. Again the patient clinically seems very well, her breathing status is improved, she is not having any diarrhea. Continue to monitor. Pneumonia: Overall appears to be improving, doubt that this is related to her worsening leukocytosis as clinically she is much improved and her pro-calcitonin has improved as well. Patient has completed 6 days of azithromycin. <Sergei Lyons - Last Filed: 03/09/19 14:36> (4) COPD (chronic obstructive pulmonary disease) Qualifiers: COPD type: COPD with acute exacerbation Qualified Code(s): J44.1 - Chronic obstructive pulmonary disease with (acute) exacerbation (5) Anemia Qualifiers: Anemia type: unspecified type Qualified Code(s): D64.9 - Anemia, unspecified (6) Hypertension Qualifiers: Hypertension type: essential hypertension Qualified Code(s): I10 - Essential (primary) hypertension <Aneesh Pedro - Last Filed: 03/09/19 14:48> (1) Hypertension Qualifiers: Hypertension type: essential hypertension Qualified Code(s): I10 - Essential (primary) hypertension (3) Pneumonia Qualifiers: Pneumonia type: due to other aerobic Gram-negative bacteria Laterality: bilateral Lung location: lower lobe of lung Qualified Code(s): J15.6 - Pneumonia due to other Gram-negative bacteria (4) COPD (chronic obstructive pulmonary disease) Qualifiers: COPD type: COPD with acute exacerbation Qualified Code(s): J44.1 - Chronic obstructive pulmonary disease with (acute) exacerbation (7) Hypothyroidism Qualifiers: Hypothyroidism type: acquired Qualified Code(s): E03.9 - Hypothyroidism, unspecified (8) Anemia Qualifiers: Anemia type: unspecified type Qualified Code(s): D64.9 - Anemia, unspecified
[2019-03-09] MEDS: Mirtazapine 15 MG TABLET PO SCH (20:09)
[2019-03-09] MEDS: traZODone 50 MG TABLET PO SCH (20:10)
[2019-03-10] MEDS: *HR* Heparin 5,000 UNIT/ML VIAL SQ SCH ×2 (00:15→07:45)
[2019-03-10 02:44] LABS: Hematocrit 24.7 % (35.3-44.9); Mean Corpuscular HGB Conc 32.4 g/dL (31.6-35.5); Mean Corpuscular Hemoglobin 29.2 pg (28.0-33.3); Mean Corpuscular Volume 90.1 fL (83.0-100.0); Mean Platelet Volume 10.8 fL (9.4-12.4); Red Blood Count 2.74 M/mcL (3.82-4.97); Red Cell Distribution Width 13.7 % (11.5-14.5); White Blood Count 15.1 K/mcL (4.3-11.1)
[2019-03-10] MEDS: Ipratropium/Albuterol Neb 3 ML IH SCH ×3 (04:36→11:17)
[2019-03-10 04:43] LABS: BUN/Creatinine Ratio 29 (6-26); Blood Urea Nitrogen 11 mg/dL (6-20); Calcium 9.3 mg/dL (8.6-10.3); Carbon Dioxide 33 mEq/L (23-29); Chloride 83 mEq/L (98-107); Glucose 112 mg/dL (70-105); Osmolality,Calculated 262 (280-300); Potassium 3.6 mEq/L (3.5-5.1); Sodium 126 mEq/L (136-145); eGFR For African Americans > 60 (> 60); eGFR For Non-African Americans > 60 (> 60)
[2019-03-10 05:30] LABS: Mean Platelet Volume 9.6 fL (9.4-12.4)
[2019-03-10] MEDS: Levothyroxine 25 MCG TABLET PO SCH (07:33)
[2019-03-10] MEDS: Budesonide/Formoterol 160/4.5 1 PUFF INH IH SCH (07:34)
[2019-03-10] MEDS: Magnesium Oxide 400 MG TABLET PO SCH (07:45)
[2019-03-10] MEDS: Gabapentin 300 MG CAPSULE PO SCH (07:45)
[2019-03-10] MEDS: amLODIPine 5 MG TABLET PO SCH (07:45)
[2019-03-10] MEDS: Loratadine 10 MG TABLET PO SCH (07:45)
--- NOTE | 2019-03-10 09:31 | Discharge Summary ---
<Aneesh Pedro - Last Filed: 03/10/19 14:21> Orders not resulted at time of discharge: Pending orders 03/08/19 07:10 Culture,Blood [BC] Routine 03/09/19 14:25 Urinalysis Dipstick Only [URIN] Routine 03/10/19 07:31 Osmolality,Urine [UCHEM] AM 0400 Sodium, Urine [UCHEM] AM 0400 Date of Encounter: 03/10/19 - Discharge Diagnosis (1) Hypertension Status: Chronic Qualifiers: Hypertension type: essential hypertension Qualified Code(s): I10 - Essential (primary) hypertension (2) DVT prophylaxis Status: Acute (3) Pneumonia Status: Suspected Qualifiers: Pneumonia type: due to other aerobic Gram-negative bacteria Laterality: bilateral Lung location: lower lobe of lung Qualified Code(s): J15.6 - Pneumonia due to other Gram-negative bacteria (4) COPD (chronic obstructive pulmonary disease) Status: Chronic Qualifiers: COPD type: COPD with acute exacerbation Qualified Code(s): J44.1 - Chronic obstructive pulmonary disease with (acute) exacerbation (5) Hyponatremia Status: Acute (6) Acute and chronic respiratory failure with hypoxia Status: Acute (7) Hypothyroidism Status: Chronic Qualifiers: Hypothyroidism type: acquired Qualified Code(s): E03.9 - Hypothyroidism, unspecified (8) Anemia Status: Acute Qualifiers: Anemia type: unspecified type Qualified Code(s): D64.9 - Anemia, unspecified Hospital course: Ms. Rodriguez is a 58 year old female - Time Spent with Patient Total time spent providing and/or coordinating discharge services: - Discharge Medications Prescriptions: Continued Escitalopram [Lexapro] 10 mg PO DAILY Meloxicam [Mobic] 15 mg PO DAILY Levothyroxine Sodium [Tirosint] 25 mcg PO QAM Cetirizine HCl [24Hour Allergy] 10 mg PO DAILY hydrOXYzine HCl [Hydroxyzine HCl] 25 mg PO TID PRN PRN Reason: Itching Fluticasone Propionate Nasal [Flonase] 1 spr NS DAILY Mirtazapine 7.5 mg PO HS Trazodone HCl 50 mg PO HS Gabapentin [Neurontin] 300 mg PO TID Albuterol Sulfate [Albuterol Inhaler] 2 puff IH Q4H PRN PRN Reason: Shortness Of Breath Budesonide/Formoterol 160/4.5 [Symbicort 160/4.5] 2 puff IH BIDR Ipratropium/Albuterol Sulfate [Combivent Respimat 20-100 Mcg] 1 puff IH Q6H PRN PRN Reason: Shortness Of Breath Tizanidine HCl 2 mg PO Q8H PRN PRN Reason: Muscle Spasm amLODIPine [Norvasc] 5 mg PO DAILY #30 tablet Albuterol Neb [Proventil Neb] 2.5 mg IH Q4H PRN PRN Reason: Shortness Of Breath Fluticasone/Umeclidin/Vilanter [Trelegy Ellipta 100-62.5-25] 1 puff PO DAILY Ferrous Sulfate 325 mg PO BIDWM #60 tablet Magnesium Oxide [Mag-Ox] 400 mg PO TID #90 tablet Cholecalciferol (D-3) [Vitamin D] 1,000 unit PO DAILY #30 tablet Metoprolol [Lopressor] 25 mg PO BID Acetaminophen [Extra Strength Non-Aspirin] 500 mg PO Q6H PRN PRN Reason: Pain Buspirone HCl [Buspar] 15 mg PO BID Guaifenesin [Cough Syrup] 100 mg PO Q6H PRN PRN Reason: Cough Omeprazole [PriLOSEC] 20 mg PO DAILY Home Medications: Escitalopram [Lexapro] 10 mg PO DAILY 12/30/17 [History] Cetirizine HCl [24Hour Allergy] 10 mg PO DAILY 09/14/18 [History] Levothyroxine Sodium [Tirosint] 25 mcg PO QAM 09/14/18 [History] Meloxicam [Mobic] 15 mg PO DAILY 09/14/18 [History] hydrOXYzine HCl [Hydroxyzine HCl] 25 mg PO TID PRN 12/07/18 [History] Fluticasone Propionate Nasal [Flonase] 1 spr NS DAILY 12/08/18 [History] Mirtazapine 7.5 mg PO HS 12/08/18 [History] Trazodone HCl 50 mg PO HS 12/08/18 [History] Gabapentin [Neurontin] 300 mg PO TID 12/22/18 [History] Albuterol Sulfate [Albuterol Inhaler] 2 puff IH Q4H PRN 01/17/19 [History] Budesonide/Formoterol 160/4.5 [Symbicort 160/4.5] 2 puff IH BIDR 01/17/19 [History] Ipratropium/Albuterol Sulfate [Combivent Respimat 20-100 Mcg] 1 puff IH Q6H PRN 01/17/19 [History] Tizanidine HCl 2 mg PO Q8H PRN 01/17/19 [History] amLODIPine [Norvasc] 5 mg PO DAILY #30 tablet 01/23/19 [Rx] Albuterol Neb [Proventil Neb] 2.5 mg IH Q4H PRN 02/10/19 [History] Fluticasone/Umeclidin/Vilanter [Trelegy Ellipta 100-62.5-25] 1 puff PO DAILY 02/10/19 [History] Cholecalciferol (D-3) [Vitamin D] 1,000 unit PO DAILY #30 tablet 02/14/19 [Rx] Ferrous Sulfate 325 mg PO BIDWM #60 tablet 02/14/19 [Rx] Magnesium Oxide [Mag-Ox] 400 mg PO TID #90 tablet 02/14/19 [Rx] Acetaminophen [Extra Strength Non-Aspirin] 500 mg PO Q6H PRN 03/04/19 [History] Buspirone HCl [Buspar] 15 mg PO BID 03/04/19 [History] Guaifenesin [Cough Syrup] 100 mg PO Q6H PRN 03/04/19 [History] Metoprolol [Lopressor] 25 mg PO BID 03/04/19 [History] Omeprazole [PriLOSEC] 20 mg PO DAILY 03/04/19 [History] Allergies/Adverse Reactions: Allergy/AdvReac Type Severity Reaction Status Date / Time No Known Allergies Allergy Verified 02/10/19 21:37 Date of admission: 03/04/19 00:13 Primary care physician: Terrie Joseph CNP Consults: 03/04/19 06:50 Consult to Physical Therapy [CONS] Routine Comment: Evaluate, develop and implement POC Reason for Consult: Patient reporting lower extremity weakness secondary to deconditioning. Does patient have active BEDREST order?: No Is patient medically & hemodynamically stable?: Yes 03/06/19 09:31 Consult to Occupational Therapy [CONS] Routine Comment: Evaluate, develop and implement POC Reason for Consult: DECONDITIONING Does patient have active BEDREST order?: No Is patient medically & hemodynamically stable?: Yes 03/06/19 09:34 Consult to Nurse Navigator [CONS] Routine Comment: PNEUMONIA, COPD 03/06/19 09:36 Consult to Fur Glazer [CONS] Routine Reason for SW Consult: PATIENT FROM [facility] [place] - Constitutional Vitals: Temp Pulse Resp BP Pulse Ox 98.5 F 72 18 123/75 95 03/10/19 10:47 03/10/19 10:47 03/10/19 10:47 03/10/19 10:47 03/10/19 10:47 - Patient Status Disposition: Transfer SNF Condition: Fair - Ambulatory Orders Ambulatory Orders: Osmolality,Urine [UCHEM] Time Frame: 3 Days, Facility: [facility], Location: Lab Sodium, Urine [UCHEM] Time Frame: 3 Days, Facility: [facility], Location: Lab - Discharge Instructions Instructions: Acute Respiratory Distress Syndrome (DC), Chronic Obstructive Pulmonary Disease (DC), Pneumonia (DC) Follow Up With: Terrie Joseph CNP [Primary Care Provider] - 03/15/19 10:30 am () - Attending Attestation I examined this patient and my medical decision-making was reviewed with the Resident Physician. I agree with the documented findings, disposition and treatment plan as described except to the extent set forth below. Patient seen and examined at bedside. Patient states that she feels good today. She feels like her breathing is at baseline. She denies any new abdominal pain. She denies any diarrhea, cough, fever, chills. On exam her lungs are diminished but clear to auscultation bilaterally, no rales, rhonchi, wheezes. Abdomen is soft, nontender, nondistended. Hyponatremia: Acute on chronic. Improved today, sodium up to 126. Asympto matic. Patient is stable for discharge. We will repeat BMP in 1 week at [facility]. We will recommend 2 L fluid restriction diet at [facility]. Leukocytosis: Leukocytosis much improved today. Recheck CBC as an outpatient. Pneumonia: Overall improved. Patient will be discharged to [facility] in stable condition. Time spent on discharge: 40 minutes. <Sergei Lyons - Last Filed: 03/10/19 15:18> - NOTES TO OUTPATIENT PROVIDER Notes to Outpatient Provider: Patient will need a repat BMP to reassess sodium status and a CBC for her iron deficieny anemia in 3-5 days. She will also need repeat urine somolality and sodium tests to confirm hypovolemia hyponatremia. Recommend 2 L fluid restrictino for now to prevent any hypervolemia hypo namtremia. Orders not resulted at time of discharge: Pending orders 03/08/19 07:10 Culture,Blood [BC] Routine 03/09/19 14:25 Urinalysis Dipstick Only [URIN] Routine 03/10/19 07:31 Osmolality,Urine [UCHEM] AM 0400 Sodium, Urine [UCHEM] AM 0400 Date of Encounter: 03/10/19 Time of Encounter: 08:30 - Discharge Diagnosis (1) Hyponatremia Priority: Primary Status: Chronic (2) HCAP (healthcare-associated pneumonia) Priority: Primary Status: Acute (3) Acute and chronic respiratory failure with hypoxia Priority: Primary Status: Acute (4) COPD (chronic obstructive pulmonary disease) Priority: Secondary Status: Chronic Qualifiers: COPD type: COPD with acute exacerbation Qualified Code(s): J44.1 - Chronic obstructive pulmonary disease with (acute) exacerbation (5) Anemia Priority: Secondary Status: Acute Qualifiers: Anemia type: unspecified type Qualified Code(s): D64.9 - Anemia, unspecified (6) Hypertension Priority: Primary Status: Chronic Qualifiers: Hypertension type: essential hypertension Qualified Code(s): I10 - Essential (primary) hypertension (7) Compression fracture of body of thoracic vertebra Priority: Secondary Status: Acute (8) Tobacco dependence Priority: Secondary Status: Chronic (9) Alcohol abuse Priority: Secondary Status: Acute (10) Severe protein-calorie malnutrition Priority: Secondary Status: Acute Hospital course: Ms. Rodriguez is a 58 year old female with a past medical history of COPD, alcohol abuse, hypertension, liver disease who initially presented to [facility] due to complaints of shortness of breath and cough for the past 4 days. Per reports patient was found to have low O2 saturations of 83% on her baseline 2 L of oxygen and a fever of 101. On arrival to [facility] patient had a heart rate of 120, blood pressure 110/72 and was saturating at 96% on 3 L nasal cannula. Laboratory workup was notable for a leukocytosis of 33.7, hyponatremia 128 and a lactic acid within normal limits. A CTA of the chest was performed which showed no evidence of PE. There was interstitial thickening consistent with a multifocal inflammatory or infectious bronchiolitis as well as a small mark-peripheral consolidation within the lingula concerning for pneumonia. Patient was given DuoNeb treatments and Solu-Medrol and started on antibiotics with ceftriaxone and azithromycin. Arrival here, patient was afebrile and hemodynamically stable. Patient continued treatment with azithromycin for suspected atypical PNA for which she was responding to. Her hyponatremia, which has been a chronic issue for her, had been stable around 130 (her baseline) however yesterday her sodium suddenly dropped from 127 to 119. She did not exhibit any neurological symptoms at the time. Upon examination, patient appeared euvolemic, however given her frail state, it was difficult to be sure. Urine osmolality and sodium studies were ordered which revealed an elevated urine osmolality and urine sodium of 32. Suspect hypovolemic hyponatremia however patient will need retesting of urine studies again in the outpatient to confirm. Patient's sodium level is stable today at 126. Recommend 2 L fluid restriction to prevent any hypervolemia hyponatremia. Patient has already completed 6 days of IV azithromycin and will not need antibiotics on discharge. Her WBC has been downtrending and she has been afebrile. When seen today, said that she vomited yesterday, but currently does not have any nausea. She denies any fever, chest pain, or SOB. She admits to some mold abdominal pain due to receiving subcutaneous shots. On abdominal exam, she did not have any visible sings of pain. She denies any focal weakness, numbness/tingling, slurring of speech, and KENNEDY. Patient will be discharged to a SNF facility today. She will need to have her sodium level checked again in 3 days as well as have urine sodium and osmolality studies done again. Patient to follow-up with PCP in the next 3-5 days. - Time Spent with Patient Total time spent providing and/or coordinating discharge services: Time spent: Greater than 30 minutes Date of admission: 03/04/19 00:13 Primary care physician: Terrie Joseph CNP Consults: 03/04/19 06:50 Consult to Physical Therapy [CONS] Routine Comment: Evaluate, develop and implement POC Reason for Consult: Patient reporting lower extremity weakness secondary to deconditioning. Does patient have active BEDREST order?: No Is patient medically & hemodynamically stable?: Yes 03/06/19 09:31 Consult to Occupational Therapy [CONS] Routine Comment: Evaluate, develop and implement POC Reason for Consult: DECONDITIONING Does patient have active BEDREST order?: No Is patient medically & hemodynamically stable?: Yes 03/06/19 09:34 Consult to Nurse Navigator [CONS] Routine Comment: PNEUMONIA, COPD 03/06/19 09:36 Consult to Fur Glazer [CONS] Routine Reason for SW Consult: PATIENT FROM [facility] [place] Discharging clinician: Sergei Lyons Anticipated date of discharge: 03/10/19 - Constitutional Vitals: Temp Pulse Resp BP Pulse Ox 99.0 F 101 16 148/75 99 03/10/19 07:17 03/10/19 07:17 03/10/19 07:17 03/10/19 07:17 03/10/19 07:17 Exam: GENERAL APPEARANCE: Cachectic, alert and cooperative, and appears to be in no acute distress. HEAD: normocephalic. EYES: vision is grossly intact. EARS: hearing grossly intact. NOSE: No nasal discharge. THROAT: Oral cavity and pharynx normal. No inflammation, swelling, exudate, or lesions. NECK: Neck supple, non-tender without lymphadenopathy, masses or thyromegaly. CARDIAC: Normal S1 and S2. No S3, S4 or murmurs. Rhythm is regular. There is no peripheral edema, cyanosis or pallor. Extremities are warm and well perfused. Capillary refill is less than 2 seconds. No carotid bruits. LUNGS: Clear to auscultation and percussion without rales, rhonchi, wheezing or diminished breath sounds. ABDOMEN: Positive bowel sounds. Soft, nondistended, mild subjective tenderness with palpation. No guarding or rebound. No masses. EXTREMITIES: No significant deformity or joint abnormality. No edema. Peripheral pulses intact. No varicosities. LOWER EXTREMITY: Examination of both feet reveals all toes to be normal in size and symmetry, normal range of motion, normal sensation with distal capillary filling of less than 2 seconds without tenderness, swelling, discoloration, nodules, weakness or deformity. NEUROLOGICAL: 5/5 strength in UE and LE. Reflexes 2+ throughout. No focal weakness grossly. SKIN: Skin normal color, texture and turgor with no lesions or eruptions. PSYCHIATRIC: The mental examination revealed the patient was oriented to person, place, and time. - Patient Status Functional capacity at discharge: uses cane/walker Overall status at discharge: patient is progressing back to baseline - Diet and Activity Activity: as per physical therapy Diet: regular diet
--- NOTE | 2019-03-10 10:09 | Physician Discharge Referral ---
ExtendedCare Referral Info Transfer To: [facility] Provider in Charge after Transfer: PCP Institutional Level of Care: Skilled - Diagnosis (1) Hyponatremia Priority: Primary Status: Chronic (2) HCAP (healthcare-associated pneumonia) Priority: Primary Status: Acute (3) Acute and chronic respiratory failure with hypoxia Priority: Primary Status: Acute (4) COPD (chronic obstructive pulmonary disease) Priority: Primary Status: Chronic (5) Anemia Priority: Secondary Status: Acute (6) Hypertension Priority: Primary Status: Chronic (7) Compression fracture of body of thoracic vertebra Priority: Secondary Status: Acute (8) Tobacco dependence Priority: Secondary Status: Chronic (9) Alcohol abuse Priority: Secondary Status: Acute - Transfer Medications Home Medications: Escitalopram [Lexapro] 10 mg PO DAILY 12/30/17 [History] Cetirizine HCl [24Hour Allergy] 10 mg PO DAILY 09/14/18 [History] Levothyroxine Sodium [Tirosint] 25 mcg PO QAM 09/14/18 [History] Meloxicam [Mobic] 15 mg PO DAILY 09/14/18 [History] hydrOXYzine HCl [Hydroxyzine HCl] 25 mg PO TID PRN 12/07/18 [History] Fluticasone Propionate Nasal [Flonase] 1 spr NS DAILY 12/08/18 [History] Mirtazapine 7.5 mg PO HS 12/08/18 [History] Trazodone HCl 50 mg PO HS 12/08/18 [History] Gabapentin [Neurontin] 300 mg PO TID 12/22/18 [History] Albuterol Sulfate [Albuterol Inhaler] 2 puff IH Q4H PRN 01/17/19 [History] Budesonide/Formoterol 160/4.5 [Symbicort 160/4.5] 2 puff IH BIDR 01/17/19 [History] Ipratropium/Albuterol Sulfate [Combivent Respimat 20-100 Mcg] 1 puff IH Q6H PRN 01/17/19 [History] Tizanidine HCl 2 mg PO Q8H PRN 01/17/19 [History] amLODIPine [Norvasc] 5 mg PO DAILY #30 tablet 01/23/19 [Rx] Albuterol Neb [Proventil Neb] 2.5 mg IH Q4H PRN 02/10/19 [History] Fluticasone/Umeclidin/Vilanter [Trelegy Ellipta 100-62.5-25] 1 puff PO DAILY 02/10/19 [History] Cholecalciferol (D-3) [Vitamin D] 1,000 unit PO DAILY #30 tablet 02/14/19 [Rx] Ferrous Sulfate 325 mg PO BIDWM #60 tablet 02/14/19 [Rx] Magnesium Oxide [Mag-Ox] 400 mg PO TID #90 tablet 02/14/19 [Rx] Acetaminophen [Extra Strength Non-Aspirin] 500 mg PO Q6H PRN 03/04/19 [History] Buspirone HCl [Buspar] 15 mg PO BID 03/04/19 [History] Guaifenesin [Cough Syrup] 100 mg PO Q6H PRN 03/04/19 [History] Metoprolol [Lopressor] 25 mg PO BID 03/04/19 [History] Omeprazole [PriLOSEC] 20 mg PO DAILY 03/04/19 [History] Allergies/Adverse Reactions: Allergy/AdvReac Type Severity Reaction Status Date / Time No Known Allergies Allergy Verified 02/10/19 21:37 - Respiratory Orders Smoking Cessation: Smoking cessation has been advised. For more information, call the [place] Tobacco Quit Line at 2-900-COQT-NOW. - Lab Orders Lab Orders: Other (include drug levels w/frequency) (BMP, urine adoium, urine osmolality in 3 days.) - Ancillary Orders May use pressure relief devices daily prn, May go on DAMIAN w/family/respon alliance party w/meds at nurse discretion PRN, May consult with Dentist, De Icer Finisher, Fourth Officer PRN - Advance Directives Code Status: Full Code - Mobility Orders Ambulate - Rehabiliation Orders Rehab Potential: Good Rehab Orders: Evaluation for Physical Therapy, Evaluation for Occupational Therapy - Treatments Skin tear care topically daily PRN per policy, May check for fecal impaction rectally daily PRN, Fleet enema rectally every other day PRN cleansing purposes - Diet Orders Regular CERTIFICATION: I certify that the transfer of the above named patient to an Extended Care Facility is necessary for the continuing treatment of the diagnosis listed. The above information is true and accurate reflection of patient's current condition. Confidential - Redisclosure prohibited without a patient's written consent.
[2019-03-10 10:49] VITALS: BP 123/75
== END 2019-03-10 11:37 | DRG 177 ==
LOC: 3BNU → SUATTDRO 03-04 00:13
PROVIDERS: ADMIT Internal Medicine Nephrology; ATTEND Internal Medicine

== ENCOUNTER 2019-04-02 01:13 | Inpatient (IN) ==
[2019-04-02] MEDS ORDERED: Naloxone 0.4 MG/ML INJ IVP PRN (04:01)
[2019-04-02] MEDS ORDERED: 0.9 % Sodium Chloride 1,000 ML IVC ONE (04:05)
[2019-04-02] MEDS ORDERED: 0.9 % Sodium Chloride 500 ML IVC ONE (04:15)
[2019-04-02] MEDS: *HR* Promethazine 25 MG/ML VIAL IVP PRN ×2 (04:29→12:41)
[2019-04-02] MEDS: 0.9 % Sodium Chloride 1,000 ML IVC SCH ×2 (05:18→16:18)
[2019-04-02] MEDS ORDERED: *HR* Heparin 5,000 UNIT/ML VIAL SQ SCH (06:00)
[2019-04-02 06:41] LABS: Basophils % 0.2 %; Eosinophils % 0.2 %; Mean Platelet Volume 9.5 fL (9.4-12.4); Red Cell Distribution Width 14.5 % (11.5-14.5); Segmented Neutrophils % 91.7 %
[2019-04-02 06:42] LABS: Basophils # 0.1 K/mcL (0.0-0.2); Eosinophils # 0.1 K/mcL (0.0-0.6); Hematocrit 26.5 % (35.3-44.9); Hemoglobin 8.5 g/dL (11.5-15.4); Immature Granulocytes % 1.2 % (0-4); Lymphocytes % 2.6 %; Mean Corpuscular HGB Conc 32.1 g/dL (31.6-35.5); Mean Corpuscular Hemoglobin 28.7 pg (28.0-33.3); Mean Corpuscular Volume 89.5 fL (83.0-100.0); Monocytes # 1.3 K/mcL (0.0-1.3); Monocytes % 4.1 %; Platelet Count 398 K/mcL (140-400); Red Blood Count 2.96 M/mcL (3.82-4.97)
[2019-04-02 06:45] LABS: Lymphocytes # 0.8 K/mcL (0.6-4.6); Neutrophils # 29.7 K/mcL (1.6-8.9); White Blood Count 32.4 K/mcL (4.3-11.1)
[2019-04-02 06:50] LABS: INR 1.4; Prothrombin Time 15.5 Seconds (9.4-12.1)
[2019-04-02 07:00] LABS: Alanine Aminotransferase 4 Units/L (7-52); Albumin 2.5 g/dL (3.5-5.7); Alkaline Phosphatase 102 Units/L (34-104); Aspartate Amino Transferase 10 Units/L (13-39); BUN/Creatinine Ratio 6 (6-26); Bilirubin,Total 0.4 mg/dL (0.3-1.0); Blood Urea Nitrogen 2 mg/dL (8-23); Carbon Dioxide 26 mEq/L (23-29); Chloride 93 mEq/L (98-107); Globulin 2.6 g/dL (2.4-3.5); Glucose 116 mg/dL (70-105); Magnesium 1.8 mg/dL (1.6-2.6); Osmolality,Calculated 259 (280-300); Phosphorous 3.1 mg/dL (2.7-4.5); Sodium 126 mEq/L (136-145); Total Protein 5.1 g/dL (6.4-8.9); eGFR For African Americans > 60 (> 60); eGFR For Non-African Americans > 60 (> 60)
[2019-04-02] MEDS: Levothyroxine 25 MCG TABLET PO SCH (07:12)
[2019-04-02 07:15] LABS: Platelet Estimate Normal (Normal)
[2019-04-02] MEDS ORDERED: Potassium Chloride Elixir 20 MEQ/15 ML UDC PO ONE (07:50)
[2019-04-02] MEDS: Vancomycin Oral Soln 125 MG/2.5 ML UDC PO SCH ×4 (08:50→20:31)
[2019-04-02] MEDS: MetroNIDAZOLE 500 MG/100 ML 500 MG/100 ML BAG IVPB SCH ×3 (08:51→23:47)
[2019-04-02 10:50] LABS: Bilirubin,Urine Negative (Negative); Blood,Urine Negative (Negative); Clarity,Urine Clear (Clear); Color,Urine Yellow (Yellow); Glucose,Urine (UA) Normal (Normal); Ketones,Urine 15 mg/dL (Negative); Leukocyte Esterase,Urine Negative (Negative); Nitrite,Urine Negative (Negative); Protein,Urine Negative (Neg-Trace); Specific Gravity,Urine 1.016 (1.010-1.025); Urobilinogen,Urine Normal (Normal)
[2019-04-02 11:13] LABS: Sodium, Urine 108.4 mEq/L
[2019-04-02] MEDS ORDERED: Potassium Chloride Elixir 20 MEQ/15 ML UDC PO SCH (15:15)
[2019-04-02] MEDS: traZODone 50 MG TABLET PO SCH (20:29)
[2019-04-02] MEDS: Mirtazapine 15 MG TABLET PO SCH (20:29)
[2019-04-03] MEDS: Levothyroxine 25 MCG TABLET PO SCH (06:30)
[2019-04-03 07:00] LABS: Eosinophils % 2.1 %; Mean Corpuscular HGB Conc 31.4 g/dL (31.6-35.5); Platelet Count 356 K/mcL (140-400); Red Cell Distribution Width 14.6 % (11.5-14.5)
[2019-04-03 07:01] LABS: Basophils # 0.1 K/mcL (0.0-0.2); Basophils % 0.3 %; Eosinophils # 0.6 K/mcL (0.0-0.6); Hematocrit 26.4 % (35.3-44.9); Hemoglobin 8.3 g/dL (11.5-15.4); Immature Granulocytes % 0.8 % (0-4); Lymphocytes # 1.6 K/mcL (0.6-4.6); Mean Corpuscular Hemoglobin 28.1 pg (28.0-33.3); Mean Corpuscular Volume 89.5 fL (83.0-100.0); Mean Platelet Volume 10.1 fL (9.4-12.4); Monocytes # 0.9 K/mcL (0.0-1.3); Monocytes % 3.4 %; Red Blood Count 2.95 M/mcL (3.82-4.97); Segmented Neutrophils % 87.4 %; White Blood Count 26.7 K/mcL (4.3-11.1)
[2019-04-03 07:06] LABS: Neutrophils # 23.3 K/mcL (1.6-8.9)
[2019-04-03 07:37] LABS: Blood Urea Nitrogen < 2 mg/dL (8-23); Calcium 7.1 mg/dL (8.6-10.3); Carbon Dioxide 24 mEq/L (23-29); Chloride 102 mEq/L (98-107); Glucose 84 mg/dL (70-105); Potassium 3.2 mEq/L (3.5-5.1); Sodium 133 mEq/L (136-145); eGFR For African Americans > 60 (> 60); eGFR For Non-African Americans > 60 (> 60)
[2019-04-03] MEDS: MetroNIDAZOLE 500 MG/100 ML 500 MG/100 ML BAG IVPB SCH (08:33)
[2019-04-03] MEDS: Vancomycin Oral Soln 125 MG/2.5 ML UDC PO SCH ×4 (08:33→21:47)
[2019-04-03] MEDS: 0.9 % Sodium Chloride 1,000 ML IVC SCH ×2 (09:51→21:46)
[2019-04-03] MEDS: Potassium Chloride Elixir 20 MEQ/15 ML UDC PO SCH ×2 (09:52→13:25)
[2019-04-03] MEDS: *HR* Promethazine 25 MG/ML VIAL IVP PRN (10:00)
[2019-04-03] MEDS ORDERED: Ipratropium/Albuterol Neb 3 ML IH PRN (10:08)
[2019-04-03 14:26] LABS: Platelet Clumps Few (Not Present); Platelet Estimate Normal (Normal)
[2019-04-03] MEDS: Budesonide/Formoterol 160/4.5 1 PUFF INH IH SCH (20:27)
[2019-04-03] MEDS: Mirtazapine 15 MG TABLET PO SCH (21:47)
[2019-04-03] MEDS: traZODone 50 MG TABLET PO SCH (21:48)
[2019-04-04 04:08] LABS: Basophils # 0.1 K/mcL (0.0-0.2); Basophils % 0.3 %; Eosinophils # 0.8 K/mcL (0.0-0.6); Eosinophils % 4.4 %; Hematocrit 26.8 % (35.3-44.9); Hemoglobin 8.5 g/dL (11.5-15.4); Immature Granulocytes % 0.7 % (0-4); Lymphocytes # 1.6 K/mcL (0.6-4.6); Lymphocytes % 8.5 %; Mean Corpuscular HGB Conc 31.7 g/dL (31.6-35.5); Mean Corpuscular Hemoglobin 28.5 pg (28.0-33.3); Mean Corpuscular Volume 89.9 fL (83.0-100.0); Mean Platelet Volume 9.7 fL (9.4-12.4); Monocytes # 0.7 K/mcL (0.0-1.3); Monocytes % 3.8 %; Neutrophils # 15.1 K/mcL (1.6-8.9); Platelet Count 391 K/mcL (140-400); Red Blood Count 2.98 M/mcL (3.82-4.97); Red Cell Distribution Width 14.7 % (11.5-14.5); Segmented Neutrophils % 82.3 %; White Blood Count 18.3 K/mcL (4.3-11.1)
[2019-04-04 04:39] LABS: Blood Urea Nitrogen < 2 mg/dL (8-23); Calcium 7.6 mg/dL (8.6-10.3); Carbon Dioxide 26 mEq/L (23-29); Chloride 104 mEq/L (98-107); Glucose 87 mg/dL (70-105); Potassium 3.8 mEq/L (3.5-5.1); Sodium 135 mEq/L (136-145); eGFR For African Americans > 60 (> 60); eGFR For Non-African Americans > 60 (> 60)
[2019-04-04] MEDS: Levothyroxine 25 MCG TABLET PO SCH (06:29)
[2019-04-04] MEDS: Budesonide/Formoterol 160/4.5 1 PUFF INH IH SCH ×2 (07:39→19:59)
[2019-04-04] MEDS: 0.9 % Sodium Chloride 1,000 ML IVC SCH ×3 (09:27→21:10)
[2019-04-04] MEDS: Vancomycin Oral Soln 125 MG/2.5 ML UDC PO SCH ×4 (09:28→20:19)
[2019-04-04] MEDS: Mirtazapine 15 MG TABLET PO SCH (20:17)
[2019-04-04] MEDS: traZODone 50 MG TABLET PO SCH (20:18)
[2019-04-05 04:25] LABS: Basophils % 0.2 %; Eosinophils # 0.7 K/mcL (0.0-0.6); Eosinophils % 5.2 %; Hematocrit 25.9 % (35.3-44.9); Hemoglobin 8.1 g/dL (11.5-15.4); Immature Granulocytes % 0.5 % (0-4); Lymphocytes # 1.6 K/mcL (0.6-4.6); Lymphocytes % 12.8 %; Mean Corpuscular HGB Conc 31.3 g/dL (31.6-35.5); Mean Corpuscular Hemoglobin 27.9 pg (28.0-33.3); Mean Corpuscular Volume 89.3 fL (83.0-100.0); Mean Platelet Volume 10.6 fL (9.4-12.4); Monocytes # 0.7 K/mcL (0.0-1.3); Monocytes % 5.3 %; Neutrophils # 9.7 K/mcL (1.6-8.9); Platelet Count 324 K/mcL (140-400); Red Cell Distribution Width 14.7 % (11.5-14.5); White Blood Count 12.7 K/mcL (4.3-11.1)
[2019-04-05 04:53] LABS: Blood Urea Nitrogen < 2 mg/dL (8-23); Calcium 7.5 mg/dL (8.6-10.3); Carbon Dioxide 25 mEq/L (23-29); Chloride 103 mEq/L (98-107); Glucose 86 mg/dL (70-105); Potassium 3.4 mEq/L (3.5-5.1); Sodium 133 mEq/L (136-145); eGFR For African Americans > 60 (> 60); eGFR For Non-African Americans > 60 (> 60)
[2019-04-05] MEDS: Levothyroxine 25 MCG TABLET PO SCH (05:57)
[2019-04-05] MEDS: Budesonide/Formoterol 160/4.5 1 PUFF INH IH SCH ×2 (07:34→20:14)
[2019-04-05] MEDS: 0.9 % Sodium Chloride 1,000 ML IVC SCH ×2 (09:26→22:19)
[2019-04-05] MEDS: Vancomycin Oral Soln 125 MG/2.5 ML UDC PO SCH ×4 (09:26→22:18)
[2019-04-05] MEDS: Potassium Chloride Elixir 20 MEQ/15 ML UDC PO ONE ×2 (09:27→09:52)
[2019-04-05] MEDS ORDERED: NON-FORMULARY MEDICATION 1 EACH EACH (Ipratropium/Albuterol Sulfate [Combivent Respimat 20 IH PRN (10:16)
[2019-04-05] MEDS ORDERED: NON-FORMULARY MEDICATION 1 EACH EACH (Fluticasone/Vilanterol [Breo Ellipta 100-25 Mcg Inh] IH SCH (10:30)
[2019-04-05] MEDS ORDERED: (Fluticasone/Umeclidin/Vilanter [Trelegy Ellipta 100- PO SCH (10:30)
[2019-04-05] MEDS: *HR* Promethazine 25 MG/ML VIAL IVP PRN (10:30)
[2019-04-05 10:53] LABS: Magnesium 0.9 mg/dL (1.6-2.6)
[2019-04-05] MEDS ORDERED: Magnesium Sulfate 4 GM in 0.9 % Sodium Chloride 100 ML IVPB ONE (13:31)
[2019-04-05] MEDS ORDERED: GuaiFENesin Liq 200 MG/10 ML UDC PO PRN (15:49)
[2019-04-05] MEDS ORDERED: Albuterol 2.5 MG/3 ML NEBULIZER IH PRN (15:49)
[2019-04-05] MEDS ORDERED: Ondansetron 4 MG/2 ML VIAL IVP PRN (16:52)
[2019-04-05] MEDS: traZODone 50 MG TABLET PO SCH (22:18)
[2019-04-05] MEDS: Mirtazapine 15 MG TABLET PO SCH (22:18)
[2019-04-06] MEDS: Levothyroxine 25 MCG TABLET PO SCH (06:24)
[2019-04-06 06:47] LABS: Basophils % 0.3 %; Eosinophils # 0.8 K/mcL (0.0-0.6); Eosinophils % 6.4 %; Hematocrit 27.9 % (35.3-44.9); Hemoglobin 8.8 g/dL (11.5-15.4); Immature Granulocytes % 0.8 % (0-4); Lymphocytes # 1.5 K/mcL (0.6-4.6); Mean Corpuscular HGB Conc 31.5 g/dL (31.6-35.5); Mean Corpuscular Hemoglobin 28.4 pg (28.0-33.3); Mean Platelet Volume 10.7 fL (9.4-12.4); Monocytes # 0.9 K/mcL (0.0-1.3); Monocytes % 7.9 %; Neutrophils # 8.5 K/mcL (1.6-8.9); Platelet Count 316 K/mcL (140-400); Red Cell Distribution Width 15.1 % (11.5-14.5); Segmented Neutrophils % 71.6 %; White Blood Count 11.9 K/mcL (4.3-11.1)
[2019-04-06 07:09] LABS: Blood Urea Nitrogen < 2 mg/dL (8-23); Calcium 7.5 mg/dL (8.6-10.3); Carbon Dioxide 26 mEq/L (23-29); Chloride 101 mEq/L (98-107); Glucose 77 mg/dL (70-105); Magnesium 1.6 mg/dL (1.6-2.6); Potassium 4.3 mEq/L (3.5-5.1); Sodium 133 mEq/L (136-145); eGFR For African Americans > 60 (> 60); eGFR For Non-African Americans > 60 (> 60)
[2019-04-06] MEDS: Budesonide/Formoterol 160/4.5 1 PUFF INH IH SCH ×2 (08:15→20:12)
[2019-04-06] MEDS: 0.9 % Sodium Chloride 1,000 ML IVC SCH (08:18)
[2019-04-06] MEDS: Cholecalciferol (D-3) 1,000 UNIT (25MCG) TABLET PO SCH (08:18)
[2019-04-06] MEDS: Vancomycin Oral Soln 125 MG/2.5 ML UDC PO SCH ×4 (08:19→20:26)
[2019-04-06] MEDS: Fluticasone Propionate Nasal 50 MCG/SPRAY BOTTLE NS SCH (08:27)
[2019-04-06] MEDS: amLODIPine 5 MG TABLET PO SCH (12:12)
[2019-04-06] MEDS: traZODone 50 MG TABLET PO SCH (20:26)
[2019-04-06] MEDS: Mirtazapine 15 MG TABLET PO SCH (20:26)
[2019-04-07] MEDS: Levothyroxine 25 MCG TABLET PO SCH (05:38)
[2019-04-07] MEDS: Budesonide/Formoterol 160/4.5 1 PUFF INH IH SCH ×2 (07:10→19:48)
[2019-04-07] MEDS: Cholecalciferol (D-3) 1,000 UNIT (25MCG) TABLET PO SCH (08:09)
[2019-04-07] MEDS: amLODIPine 5 MG TABLET PO SCH (08:10)
[2019-04-07] MEDS: Vancomycin Oral Soln 125 MG/2.5 ML UDC PO SCH ×4 (08:11→20:43)
[2019-04-07] MEDS: Ondansetron ODT 4 MG TAB.RAPDIS SL PRN (10:15)
[2019-04-07] MEDS: Fluticasone Propionate Nasal 50 MCG/SPRAY BOTTLE NS SCH (12:30)
[2019-04-07 13:22] LABS: Basophils # 0.1 K/mcL (0.0-0.2); Basophils % 0.4 %; Eosinophils # 0.6 K/mcL (0.0-0.6); Eosinophils % 3.8 %; Hematocrit 29.8 % (35.3-44.9); Hemoglobin 9.3 g/dL (11.5-15.4); Immature Granulocytes % 0.6 % (0-4); Lymphocytes # 1.3 K/mcL (0.6-4.6); Lymphocytes % 8.5 %; Mean Corpuscular HGB Conc 31.2 g/dL (31.6-35.5); Mean Corpuscular Hemoglobin 27.1 pg (28.0-33.3); Mean Corpuscular Volume 86.9 fL (83.0-100.0); Mean Platelet Volume 11.4 fL (9.4-12.4); Monocytes % 6.5 %; Neutrophils # 12.6 K/mcL (1.6-8.9); Platelet Count 185 K/mcL (140-400); Red Blood Count 3.43 M/mcL (3.82-4.97); Red Cell Distribution Width 15.2 % (11.5-14.5); Segmented Neutrophils % 80.2 %; White Blood Count 15.7 K/mcL (4.3-11.1)
[2019-04-07 13:41] LABS: BUN/Creatinine Ratio 5 (6-26); Blood Urea Nitrogen 2 mg/dL (8-23); Calcium 7.7 mg/dL (8.6-10.3); Carbon Dioxide 28 mEq/L (23-29); Chloride 94 mEq/L (98-107); Glucose 103 mg/dL (70-105); Osmolality,Calculated 264 (280-300); Potassium 3.4 mEq/L (3.5-5.1); Sodium 129 mEq/L (136-145); eGFR For African Americans > 60 (> 60); eGFR For Non-African Americans > 60 (> 60)
[2019-04-07] MEDS ORDERED: 0.9 % Sodium Chloride 1,000 ML IVC ONE (16:27)
[2019-04-07] MEDS: Mirtazapine 15 MG TABLET PO SCH (20:43)
[2019-04-07] MEDS: traZODone 50 MG TABLET PO SCH (20:43)
[2019-04-08] MEDS: Levothyroxine 25 MCG TABLET PO SCH (06:35)
[2019-04-08 07:08] LABS: Basophils # 0.1 K/mcL (0.0-0.2); Basophils % 0.5 %; Eosinophils # 0.7 K/mcL (0.0-0.6); Eosinophils % 7.3 %; Hematocrit 27.7 % (35.3-44.9); Hemoglobin 8.9 g/dL (11.5-15.4); Immature Granulocytes % 0.5 % (0-4); Lymphocytes # 1.7 K/mcL (0.6-4.6); Lymphocytes % 16.5 %; Mean Corpuscular HGB Conc 32.1 g/dL (31.6-35.5); Mean Corpuscular Hemoglobin 27.6 pg (28.0-33.3); Mean Platelet Volume 11.6 fL (9.4-12.4); Neutrophils # 6.6 K/mcL (1.6-8.9); Platelet Count 227 K/mcL (140-400); Red Blood Count 3.22 M/mcL (3.82-4.97); Red Cell Distribution Width 15.2 % (11.5-14.5); Segmented Neutrophils % 65.2 %; White Blood Count 10.2 K/mcL (4.3-11.1)
[2019-04-08 07:29] LABS: BUN/Creatinine Ratio 6 (6-26); Blood Urea Nitrogen 2 mg/dL (8-23); Calcium 7.8 mg/dL (8.6-10.3); Carbon Dioxide 28 mEq/L (23-29); Chloride 96 mEq/L (98-107); Glucose 75 mg/dL (70-105); Magnesium 1.2 mg/dL (1.6-2.6); Osmolality,Calculated 265 (280-300); Potassium 3.9 mEq/L (3.5-5.1); Sodium 130 mEq/L (136-145); eGFR For African Americans > 60 (> 60); eGFR For Non-African Americans > 60 (> 60)
[2019-04-08] MEDS: Budesonide/Formoterol 160/4.5 1 PUFF INH IH SCH ×2 (07:33→22:31)
[2019-04-08] MEDS: Fluticasone Propionate Nasal 50 MCG/SPRAY BOTTLE NS SCH ×2 (08:33→12:24)
[2019-04-08] MEDS: Cholecalciferol (D-3) 1,000 UNIT (25MCG) TABLET PO SCH (08:34)
[2019-04-08] MEDS: amLODIPine 5 MG TABLET PO SCH (08:34)
[2019-04-08] MEDS: Vancomycin Oral Soln 125 MG/2.5 ML UDC PO SCH ×4 (08:35→20:14)
[2019-04-08] MEDS: Ondansetron ODT 4 MG TAB.RAPDIS SL PRN (08:45)
[2019-04-08] MEDS: *HR* Promethazine 25 MG/ML VIAL IVP PRN (12:24)
[2019-04-08] MEDS: Ondansetron ODT 4 MG TAB.RAPDIS SL SCH ×2 (17:30→23:52)
[2019-04-08] MEDS: Mirtazapine 15 MG TABLET PO SCH (20:14)
[2019-04-08] MEDS: traZODone 50 MG TABLET PO SCH (20:14)
[2019-04-09 02:50] LABS: Hematocrit 28.2 % (35.3-44.9); Hemoglobin 9.1 g/dL (11.5-15.4); Mean Corpuscular HGB Conc 32.3 g/dL (31.6-35.5); Mean Corpuscular Hemoglobin 28.2 pg (28.0-33.3); Mean Corpuscular Volume 87.3 fL (83.0-100.0); Mean Platelet Volume 11.5 fL (9.4-12.4); Platelet Count 240 K/mcL (140-400); Red Blood Count 3.23 M/mcL (3.82-4.97); Red Cell Distribution Width 15.2 % (11.5-14.5); White Blood Count 11.6 K/mcL (4.3-11.1)
[2019-04-09 03:08] LABS: BUN/Creatinine Ratio 5 (6-26); Blood Urea Nitrogen 2 mg/dL (8-23); Calcium 7.8 mg/dL (8.6-10.3); Carbon Dioxide 28 mEq/L (23-29); Chloride 92 mEq/L (98-107); Glucose 78 mg/dL (70-105); Osmolality,Calculated 263 (280-300); Potassium 3.9 mEq/L (3.5-5.1); Sodium 129 mEq/L (136-145); eGFR For African Americans > 60 (> 60); eGFR For Non-African Americans > 60 (> 60)
[2019-04-09] MEDS: Ondansetron ODT 4 MG TAB.RAPDIS SL SCH ×4 (06:04→23:09)
[2019-04-09] MEDS: Levothyroxine 25 MCG TABLET PO SCH (06:04)
[2019-04-09] MEDS ORDERED: 0.9 % Sodium Chloride 1,000 ML IVC ONE (07:34)
[2019-04-09] MEDS: Budesonide/Formoterol 160/4.5 1 PUFF INH IH SCH ×2 (07:47→20:26)
[2019-04-09] MEDS: Vancomycin Oral Soln 125 MG/2.5 ML UDC PO SCH ×4 (09:33→21:38)
[2019-04-09] MEDS: Fluticasone Propionate Nasal 50 MCG/SPRAY BOTTLE NS SCH (09:34)
[2019-04-09] MEDS: Magnesium Oxide 400 MG TABLET PO SCH ×2 (09:34→21:39)
[2019-04-09] MEDS: amLODIPine 5 MG TABLET PO SCH (09:34)
[2019-04-09] MEDS: Cholecalciferol (D-3) 1,000 UNIT (25MCG) TABLET PO SCH (09:34)
[2019-04-09 13:33] LABS: Thyroid Stimulating Hormone 1.888 mcIU/mL (0.340-5.600)
[2019-04-09] MEDS: *HR* LORazepam 0.5 MG TABLET PO PRN (18:24)
[2019-04-09] MEDS: traZODone 50 MG TABLET PO SCH (21:39)
[2019-04-09] MEDS: Mirtazapine 15 MG TABLET PO SCH (21:41)
[2019-04-10] MEDS: Levothyroxine 25 MCG TABLET PO SCH (05:41)
[2019-04-10 06:33] LABS: BUN/Creatinine Ratio 7 (6-26); Blood Urea Nitrogen 3 mg/dL (8-23); Calcium 7.9 mg/dL (8.6-10.3); Carbon Dioxide 28 mEq/L (23-29); Chloride 90 mEq/L (98-107); Glucose 77 mg/dL (70-105); Osmolality,Calculated 257 (280-300); Potassium 3.7 mEq/L (3.5-5.1); Sodium 126 mEq/L (136-145); eGFR For African Americans > 60 (> 60); eGFR For Non-African Americans > 60 (> 60)
[2019-04-10] MEDS: Budesonide/Formoterol 160/4.5 1 PUFF INH IH SCH ×2 (07:37→20:05)
[2019-04-10] MEDS ORDERED: 0.9 % Sodium Chloride 1,000 ML IVC ONE (07:49)
[2019-04-10] MEDS: *HR* LORazepam 0.5 MG TABLET PO PRN ×2 (09:21→17:22)
[2019-04-10] MEDS: amLODIPine 5 MG TABLET PO SCH (09:22)
[2019-04-10] MEDS: Vancomycin Oral Soln 125 MG/2.5 ML UDC PO SCH ×4 (09:22→21:25)
[2019-04-10] MEDS: Cholecalciferol (D-3) 1,000 UNIT (25MCG) TABLET PO SCH (09:22)
[2019-04-10] MEDS: Ondansetron ODT 4 MG TAB.RAPDIS SL SCH ×3 (09:38→17:22)
[2019-04-10] MEDS: Fluticasone Propionate Nasal 50 MCG/SPRAY BOTTLE NS SCH (09:47)
[2019-04-10 15:25] LABS: BUN/Creatinine Ratio 11 (6-26); Blood Urea Nitrogen 4 mg/dL (8-23); Calcium 7.2 mg/dL (8.6-10.3); Carbon Dioxide 26 mEq/L (23-29); Chloride 94 mEq/L (98-107); Glucose 123 mg/dL (70-105); Magnesium 2.1 mg/dL (1.6-2.6); Osmolality,Calculated 260 (280-300); Potassium 4.2 mEq/L (3.5-5.1); Sodium 126 mEq/L (136-145); eGFR For African Americans > 60 (> 60); eGFR For Non-African Americans > 60 (> 60)
[2019-04-10] MEDS ORDERED: 0.9 % Sodium Chloride 1,000 ML IVC SCH (18:45)
[2019-04-10] MEDS: traZODone 50 MG TABLET PO SCH (21:26)
[2019-04-10] MEDS: Mirtazapine 15 MG TABLET PO SCH (21:26)
[2019-04-11 04:58] LABS: Hematocrit 27.8 % (35.3-44.9); Hemoglobin 8.9 g/dL (11.5-15.4); Mean Corpuscular Hemoglobin 27.6 pg (28.0-33.3); Mean Corpuscular Volume 86.3 fL (83.0-100.0); Mean Platelet Volume 11.5 fL (9.4-12.4); Platelet Count 225 K/mcL (140-400); Red Blood Count 3.22 M/mcL (3.82-4.97); Red Cell Distribution Width 15.6 % (11.5-14.5); White Blood Count 11.9 K/mcL (4.3-11.1)
[2019-04-11 05:13] LABS: BUN/Creatinine Ratio 10 (6-26); Blood Urea Nitrogen 3 mg/dL (8-23); Calcium 7.8 mg/dL (8.6-10.3); Carbon Dioxide 26 mEq/L (23-29); Chloride 94 mEq/L (98-107); Glucose 77 mg/dL (70-105); Magnesium 1.6 mg/dL (1.6-2.6); Osmolality,Calculated 259 (280-300); Potassium 4.1 mEq/L (3.5-5.1); Sodium 127 mEq/L (136-145); eGFR For African Americans > 60 (> 60); eGFR For Non-African Americans > 60 (> 60)
[2019-04-11] MEDS: Levothyroxine 25 MCG TABLET PO SCH (05:23)
[2019-04-11] MEDS: Budesonide/Formoterol 160/4.5 1 PUFF INH IH SCH ×2 (07:56→20:29)
[2019-04-11] MEDS ORDERED: 0.9 % Sodium Chloride 1,000 ML IVC ONE (08:13)
[2019-04-11] MEDS: amLODIPine 5 MG TABLET PO SCH (08:19)
[2019-04-11] MEDS: *HR* LORazepam 0.5 MG TABLET PO PRN ×2 (08:19→18:33)
[2019-04-11] MEDS: Cholecalciferol (D-3) 1,000 UNIT (25MCG) TABLET PO SCH (08:19)
[2019-04-11] MEDS: Ondansetron ODT 4 MG TAB.RAPDIS SL SCH ×3 (08:20→16:17)
[2019-04-11] MEDS: Vancomycin Oral Soln 125 MG/2.5 ML UDC PO SCH ×4 (08:34→21:25)
[2019-04-11] MEDS: Fluticasone Propionate Nasal 50 MCG/SPRAY BOTTLE NS SCH (08:54)
[2019-04-11] MEDS: traZODone 50 MG TABLET PO SCH (21:24)
[2019-04-11] MEDS: Mirtazapine 15 MG TABLET PO SCH (21:24)
[2019-04-12] MEDS: Levothyroxine 25 MCG TABLET PO SCH (06:02)
[2019-04-12] MEDS: Ondansetron ODT 4 MG TAB.RAPDIS SL SCH ×4 (07:15→17:43)
[2019-04-12] MEDS: Budesonide/Formoterol 160/4.5 1 PUFF INH IH SCH ×2 (07:35→20:07)
[2019-04-12] MEDS: Cholecalciferol (D-3) 1,000 UNIT (25MCG) TABLET PO SCH (08:43)
[2019-04-12] MEDS: amLODIPine 5 MG TABLET PO SCH (08:43)
[2019-04-12] MEDS: Vancomycin Oral Soln 125 MG/2.5 ML UDC PO SCH (08:44)
[2019-04-12] MEDS: Fluticasone Propionate Nasal 50 MCG/SPRAY BOTTLE NS SCH (08:45)
[2019-04-12] MEDS ORDERED: tiZANidine 4 MG TABLET PO PRN (11:31)
[2019-04-12] MEDS: *HR* LORazepam 0.5 MG TABLET PO PRN (15:11)
[2019-04-12] MEDS: traZODone 50 MG TABLET PO SCH (21:15)
[2019-04-12] MEDS: Mirtazapine 15 MG TABLET PO SCH (21:15)
[2019-04-13] MEDS: Levothyroxine 25 MCG TABLET PO SCH (06:04)
[2019-04-13] MEDS: Budesonide/Formoterol 160/4.5 1 PUFF INH IH SCH (07:16)
[2019-04-13] MEDS: Ondansetron ODT 4 MG TAB.RAPDIS SL SCH ×3 (08:23→15:55)
[2019-04-13] MEDS: Cholecalciferol (D-3) 1,000 UNIT (25MCG) TABLET PO SCH (08:24)
[2019-04-13] MEDS: amLODIPine 5 MG TABLET PO SCH (08:24)
[2019-04-13] MEDS: Fluticasone Propionate Nasal 50 MCG/SPRAY BOTTLE NS SCH (08:30)
[2019-04-13] MEDS ORDERED: 0.9 % Sodium Chloride 1,000 ML IVC ONE (15:40)
[2019-04-13 17:00] VITALS: BP 108/67
== END 2019-04-13 17:22 | disposition home health service (06) | DRG 872 ==
LOC: 3ANU → SUATTDRO 03:37 → 3ANU 04-07 18:52
PROVIDERS: ADMIT Internal Medicine; ATTEND Internal Medicine

== ENCOUNTER 2019-04-18 06:53 | Inpatient (IN) ==
--- NOTE | 2019-04-18 07:10 | Emergency Department Note ---
Disposition Clinical Impression: Clostridium difficile infection, Nausea, Hyponatremia Leukocytosis Qualifiers: Leukocytosis type: unspecified Qualified Code(s): D72.829 - Elevated white blood cell count, unspecified Disposition: Admitted As Inpatient Condition: Good Time of Disposition: 08:42 General Adult HPI - General Chief complaint: ED Nausea/Vomiting/Diarrhea Stated complaint: nausea, vomiting. Time Seen by Provider: 04/18/19 07:05 Source: patient, EMS Limitations: no limitations Nursing Notes Reviewed: Yes Vital Signs Reviewed: Yes - History of Present Illness HPI Narrative: Female patient with a history of COPD, hypertension, compression fractures throughout her back as well as a recent diagnosis of C. difficile that she had a hospital stay for and received a 10 day course of by mouth vancomycin with resolution of her symptoms. She is presenting today via EMS for increase in her diarrhea as well as some nausea and retching. She is also noted to be febrile on her initial presentation here. Patient denies any actual vomiting but does endorse episodes of retching. She has not tried anything to make this better. There are no provoking factors. During her recent hospital stay she was diagnosed with pneumonia and treated for that. She is also treated for Clostridium difficile. She was discharged home with home health. According to the discharge paperwork, the patients discharge was complicated by her a ttempting to be accepted into an ECF however insurance was having a hard time accommodating this request so she elected to go home with home health. Pain Scale: 6 - Related Data Home Medications Medication Instructions Recorded Confirmed Escitalopram [Lexapro] 10 mg PO DAILY 12/30/17 04/04/19 Cetirizine HCl [24Hour Allergy] 10 mg PO DAILY 09/14/18 04/04/19 Levothyroxine Sodium [Tirosint] 25 mcg PO QAM 09/14/18 04/04/19 Meloxicam [Mobic] 15 mg PO DAILY 09/14/18 04/04/19 hydrOXYzine HCl [Hydroxyzine HCl] 25 mg PO TID PRN 12/07/18 04/04/19 Fluticasone Propionate Nasal 1 spr NS DAILY 12/08/18 04/04/19 [Flonase] Mirtazapine 7.5 mg PO HS 12/08/18 04/04/19 Trazodone HCl 50 mg PO HS 12/08/18 04/04/19 Albuterol Sulfate [Proventil 2 puff IH Q4H PRN 01/17/19 04/04/19 Inhaler] Ipratropium/Albuterol Sulfate 1 puff IH Q6H PRN 01/17/19 04/04/19 [Combivent Respimat 20-100 Mcg] Tizanidine HCl 2 mg PO Q8H PRN 01/17/19 04/04/19 Albuterol Neb [Proventil Neb] 2.5 mg IH Q4H PRN 02/10/19 04/04/19 Fluticasone/Umeclidin/Vilanter 1 puff PO DAILY 02/10/19 04/04/19 [Trelegy Ellipta 100-62.5-25] Acetaminophen [Extra Strength 500 mg PO Q6H PRN 03/04/19 04/04/19 Non-Aspirin] Buspirone HCl [Buspar] 15 mg PO BID 03/04/19 04/04/19 Guaifenesin [Cough Syrup] 100 mg PO Q6H PRN 03/04/19 04/04/19 Metoprolol [Lopressor] 25 mg PO BID 03/04/19 04/04/19 Omeprazole [PriLOSEC] 20 mg PO DAILY 03/04/19 04/04/19 Calcium Carbonate [Tums] 1,000 mg PO Q4HR PRN 04/04/19 04/04/19 Fluticasone/Vilanterol [Breo 1 each IH DAILY 04/04/19 04/04/19 Ellipta 100-25 Mcg INH] Loperamide HCl [Anti-Diarrheal] 2 mg PO Q6H PRN 04/04/19 04/04/19 Previous Rx's Medication Instructions Recorded amLODIPine [Norvasc] 5 mg PO DAILY #30 tablet 01/23/19 Cholecalciferol (D-3) [Vitamin D] 1,000 unit PO DAILY #30 tablet 02/14/19 Ferrous Sulfate 325 mg PO BIDWM #60 tablet 02/14/19 Magnesium Oxide [Mag-Ox] 400 mg PO TID #90 tablet 02/14/19 Allergies Allergy/AdvReac Type Severity Reaction Status Date / Time No Known Allergies Allergy Verified 02/10/19 21:37 All systems ED: reviewed and negative except as stated. Review of Systems: As Per HPI Constitutional: Reports: fever Cardiovascular: Denies: chest pain Respiratory: Reports: cough, sputum production. Denies: dyspnea Gastrointestinal: Reports: abdominal pain, nausea, diarrhea, melena. Denies: vomiting, hematemesis, hematochezia Musculoskeletal: Reports: back pain (chronic) Neurological: Reports: weakness Past Medical History - Past Medical History Attestation: Yes The following information was validated with the patient. Source: patient Medical history: Reports: COPD, GERD, hypertension, liver disease, thyroid disease, TIA, other Surgical history: Reports: other Psychiatric history: Reports: anxiety, depression - Social History Smoking Status: Current every day smoker Smokeless Tobacco Status: No Alcohol use: Reports: none, heavy, recent Drug use: Reports: none Physical Exam - General Limitations: no limitations General appearance: alert, in no apparent distress - Head Head exam: atraumatic, normocephalic, normal inspection - Eye Eye exam: Present: normal appearance, PERRL, EOMI - ENT ENT exam: normal exam, normal oropharynx, mucous membranes moist - Neck Neck exam: Present: normal inspection, full ROM, trachea midline - Chest Chest inspection: Present: normal inspection, symmetric chest wall rise - Respiratory Respiratory exam: Present: wheezes (expiratory). Absent: respiratory distress, accessory muscle use - Cardiovascular Cardiovascular exam: Present: regular rate, normal rhythm, normal heart sounds - Abdominal Exam Abdominal exam: Present: soft, tenderness (Diffusely.). Absent: distention, guarding, rebound, rigidity, organomegaly, Phoenix's sign, Rovsing's sign, tenderness at McBurney's Point - Extremities Exam Extremities exam: Present: normal inspection, full ROM, normal capillary refill. Absent: tenderness, pedal edema - Back Exam Back exam: Present: normal inspection, full ROM. Absent: tenderness - Neurological Exam Neurological exam: Present: alert, oriented X3 - Psychiatric Psychiatric exam: Present: normal affect, normal mood - Skin Skin exam: Present: warm, dry, intact, normal color. Absent: rash, cyanosis, diaphoresis Course Course Narrative: Patient complaining of abdominal pain as well as nausea and vomiting. She states that she has had this pain frequently however it is mildly increased today. She is leaning forward with her vomit bag sitting in bed. Patient has had stable vitals. She is mildly tachycardic however. She is noted to be nonfebrile while here. She does report a cough that she has a history of COPD she is always on 2 L of oxygen. She denies any increasing shortness of breath. She denies any increase in her sputum. Patient received 1 L of fluid by EMS. We will give her an addition of 1 L of fluid. We did get a basic lab workup on patient as well as a chest x-ray. She is reporting some colonic stools so a fecal Hemoccult was done. Her abdomen is soft. She does report tenderness diffusely. She has recently had several CT scans for within the past year. Patient does not have a surgical abdomen on exam. She is not peritoneal. We will withhold a CT of her abdomen at this time. Her last CT did show diffuse bowel wall thickening consistent with colitis/clostridium difficile. Patient was seen at [facility] on 04/01 and had a positive C. difficile culture. She was transferred here and subsequently went through 10 day course of vancomycin by mouth. It was reported in the note that her diarrhea had subsided at that time. However her diarrhea has now returned. - Reevaluation(s) Reevaluation #1: Patient hyponatremic. However she appears to be chronically hyponatremic. Her magnesium is also low. We will replace this while she is here. She does have a leukocytosis. This is consistent with likely a C. difficile picture. We did send for C. difficile culture. We will empirically treat her with by mouth vancomycin while she is here. She has had several bowel movements while she is here that are foul-smelling consistent with C. difficile. Patient otherwise appears well while resting in bed. She is mentating appropriately speaking in full sentences. Does have a history of COPD and had a mild expiratory wheeze however she did not appear to be in respiratory distress. No signs of pneumonia on her chest x-ray. We will admit patient to the hospital for further evaluation of her C. difficile and treatment. - Consultations Consultation #1: Dr Castellanos accepted Pt in stable condition Time: 08:21 Vital Signs Temperature 100.1 F H 04/18/19 06:56 Pulse Rate 123 04/18/19 06:56 Respiratory Rate 16 04/18/19 06:56 Blood Pressure 117/73 04/18/19 06:56 O2 Sat by Pulse Oximetry 93 04/18/19 06:56 Temperature 98.4 F 04/18/19 08:03 Pulse Rate 124 04/18/19 08:28 Respiratory Rate 28 04/18/19 08:28 Blood Pressure 109/47 04/18/19 08:28 O2 Sat by Pulse Oximetry 100 04/18/19 08:28 Oxygen Delivery Oxygen Delivery Nasal Cannula Medical Decision Making - Medical Records Medical records reviewed: Yes I reviewed the patient's medical records. - Lab Data Lab results reviewed: Yes I reviewed the patient's lab results. Result diagrams: 04/18/19 07:14 04/18/19 07:14 Lab Results 04/18/19 04/18/19 04/18/19 Range/Units 07:14 07:14 07:14 WBC 33.7 H* (4.3-11.1) K/mcL RBC 3.13 L (3.82-4.97) M/mcL Hgb 8.8 L (11.5-15.4) g/dL Hct 26.8 L (35.3-44.9) % MCV 85.6 (83.0-100.0) fL MCH 28.1 (28.0-33.3) pg MCHC 32.8 (31.6-35.5) g/dL RDW 16.3 H (11.5-14.5) % Plt Count 202 (140-400) K/mcL MPV 12.6 H (9.4-12.4) fL Immature Gran % 0.8 (0-4) % Seg Neutrophils % 89.5 % Lymphocytes % 3.6 % Monocytes % 5.1 % Eosinophils % 0.8 % Basophils % 0.2 % Neutrophils # 30.2 H (1.6-8.9) K/mcL Lymphocytes # 1.2 (0.6-4.6) K/mcL Monocytes # 1.7 H (0.0-1.3) K/mcL Eosinophils # 0.3 (0.0-0.6) K/mcL Basophils # 0.1 (0.0-0.2) K/mcL Platelet Estimate Normal (Normal) Sodium 125 L (136-145) mEq/L Potassium 3.6 (3.5-5.1) mEq/L Chloride 92 L (98-107) mEq/L Carbon Dioxide 26 (23-29) mEq/L BUN 5 L (8-23) mg/dL Creatinine 0.28 L (0.60-1.20) mg/dL Est GFR ( Amer) > 60 (> 60) Est GFR (Non-Af Amer) > 60 (> 60) BUN/Creatinine Ratio 18 (6-26) Glucose 106 H (70-105) mg/dL Calculated Osmolality 258 L (280-300) Lactic Acid 1.2 (0.5-2.2) mmol/L Calcium 8.6 (8.6-10.3) mg/dL Phosphorus 4.1 (2.7-4.5) mg/dL Magnesium 1.2 L (1.6-2.6) mg/dL Total Bilirubin 0.4 (0.3-1.0) mg/dL Direct Bilirubin 0.1 (0.0-0.2) mg/dL Indirect Bilirubin 0.3 (0.0-1.2) mg/dL AST 12 L (13-39) Units/L ALT 5 L (7-52) Units/L Alkaline Phosphatase 122 H (34-104) Units/L Troponin I < 0.03 (< 0.04) ng/mL Serum Total Protein 6.2 L (6.4-8.9) g/dL Albumin 2.7 L (3.5-5.7) g/dL Globulin 3.5 (2.4-3.5) g/dL Albumin/Globulin Ratio 0.8 L (1.1-2.2) Lipase < 3 L (11-82) Units/L Stool Occult Bld Scrn (Negative) 04/18/19 Range/Units 07:25 WBC (4.3-11.1) K/mcL RBC (3.82-4.97) M/mcL Hgb (11.5-15.4) g/dL Hct (35.3-44.9) % MCV (83.0-100.0) fL MCH (28.0-33.3) pg MCHC (31.6-35.5) g/dL RDW (11.5-14.5) % Plt Count (140-400) K/mcL MPV (9.4-12.4) fL Immature Gran % (0-4) % Seg Neutrophils % % Lymphocytes % % Monocytes % % Eosinophils % % Basophils % % Neutrophils # (1.6-8.9) K/mcL Lymphocytes # (0.6-4.6) K/mcL Monocytes # (0.0-1.3) K/mcL Eosinophils # (0.0-0.6) K/mcL Basophils # (0.0-0.2) K/mcL Platelet Estimate (Normal) Sodium (136-145) mEq/L Potassium (3.5-5.1) mEq/L Chloride (98-107) mEq/L Carbon Dioxide (23-29) mEq/L BUN (8-23) mg/dL Creatinine (0.60-1.20) mg/dL Est GFR ( Amer) (> 60) Est GFR (Non-Af Amer) (> 60) BUN/Creatinine Ratio (6-26) Glucose (70-105) mg/dL Calculated Osmolality (280-300) Lactic Acid (0.5-2.2) mmol/L Calcium (8.6-10.3) mg/dL Phosphorus (2.7-4.5) mg/dL Magnesium (1.6-2.6) mg/dL Total Bilirubin (0.3-1.0) mg/dL Direct Bilirubin (0.0-0.2) mg/dL Indirect Bilirubin (0.0-1.2) mg/dL AST (13-39) Units/L ALT (7-52) Units/L Alkaline Phosphatase (34-104) Units/L Troponin I (< 0.04) ng/mL Serum Total Protein (6.4-8.9) g/dL Albumin (3.5-5.7) g/dL Globulin (2.4-3.5) g/dL Albumin/Globulin Ratio (1.1-2.2) Lipase (11-82) Units/L Stool Occult Bld Scrn Positive A (Negative) - Radiology Data Radiology results reviewed: Yes I reviewed the patient's radiology results. Chest X-Ray 04/18/19 07:08 IMPRESSION: No acute cardiopulmonary disease. COPD. D/ / 04/18/2019 07:44:07 Yulisa Meehan MD / [facility] Interpreting Provider: Yulisa Meehan MD - EKG Data EKG #1 EKG attestation: Yes I reviewed and interpreted this EKG. EKG results narrative: Sinus tachycardia at a rate of 122. [place] interval is 182. Castration is 94. QT is 319. QTC is 455. No signs of acute ischemia. Good R-wave progression. No signs of WPW Brugada. No significant change from previous EKG dated 02/09/2019.
--- NOTE | 2019-04-18 07:14 | Emergency Department Note ---
Disposition Clinical Impression: Clostridium difficile infection, Nausea, Hyponatremia Leukocytosis Qualifiers: Leukocytosis type: unspecified Qualified Code(s): D72.829 - Elevated white blood cell count, unspecified Disposition: Admitted As Inpatient Condition: Good Time of Disposition: 09:18 General Adult HPI - General Chief complaint: ED Nausea/Vomiting/Diarrhea Stated complaint: nausea, vomiting. Time Seen by Provider: 04/18/19 07:05 Source: patient, EMS Limitations: no limitations Nursing Notes Reviewed: Yes Vital Signs Reviewed: Yes - History of Present Illness Pain Scale: 6 - Related Data Home Medications Medication Instructions Recorded Confirmed Escitalopram [Lexapro] 10 mg PO DAILY 12/30/17 04/18/19 Cetirizine HCl [24Hour Allergy] 10 mg PO DAILY 09/14/18 04/18/19 Levothyroxine Sodium [Tirosint] 25 mcg PO QAM 09/14/18 04/18/19 Meloxicam [Mobic] 15 mg PO DAILY 09/14/18 04/18/19 hydrOXYzine HCl [Hydroxyzine HCl] 25 mg PO TID PRN 12/07/18 04/18/19 Fluticasone Propionate Nasal 1 spr NS DAILY 12/08/18 04/18/19 [Flonase] Mirtazapine 7.5 mg PO HS 12/08/18 04/18/19 Trazodone HCl 50 mg PO HS 12/08/18 04/18/19 Albuterol Sulfate [Proventil 2 puff IH Q4H PRN 01/17/19 04/18/19 Inhaler] Ipratropium/Albuterol Sulfate 1 puff IH Q6H PRN 01/17/19 04/18/19 [Combivent Respimat 20-100 Mcg] Tizanidine HCl 2 mg PO Q8H PRN 01/17/19 04/18/19 Albuterol Neb [Proventil Neb] 2.5 mg IH Q4H PRN 02/10/19 04/18/19 Fluticasone/Umeclidin/Vilanter 1 puff PO DAILY 02/10/19 04/18/19 [Trelegy Ellipta 100-62.5-25] Acetaminophen [Extra Strength 500 mg PO Q6H PRN 03/04/19 04/18/19 Non-Aspirin] Buspirone HCl [Buspar] 15 mg PO BID 03/04/19 04/18/19 Guaifenesin [Cough Syrup] 100 mg PO Q6H PRN 03/04/19 04/18/19 Metoprolol [Lopressor] 25 mg PO BID 03/04/19 04/18/19 Omeprazole [PriLOSEC] 20 mg PO DAILY 03/04/19 04/18/19 Calcium Carbonate [Tums] 1,000 mg PO Q4HR PRN 04/04/19 04/18/19 Fluticasone/Vilanterol [Breo 1 each IH DAILY 04/04/19 04/18/19 Ellipta 100-25 Mcg INH] Loperamide HCl [Anti-Diarrheal] 2 mg PO Q6H PRN 04/04/19 04/18/19 Previous Rx's Medication Instructions Recorded amLODIPine [Norvasc] 5 mg PO DAILY #30 tablet 01/23/19 Cholecalciferol (D-3) [Vitamin D] 1,000 unit PO DAILY #30 tablet 02/14/19 Ferrous Sulfate 325 mg PO BIDWM #60 tablet 02/14/19 Magnesium Oxide [Mag-Ox] 400 mg PO TID #90 tablet 02/14/19 Allergies Allergy/AdvReac Type Severity Reaction Status Date / Time No Known Allergies Allergy Verified 02/10/19 21:37 Past Medical History - Past Medical History Medical history: Reports: COPD, GERD, hypertension, liver disease, thyroid disease, TIA, other Surgical history: Reports: other Psychiatric history: Reports: anxiety, depression - Social History Smoking Status: Current every day smoker Smokeless Tobacco Status: No Alcohol use: Reports: none, heavy, recent Drug use: Reports: none Physical Exam - General Limitations: no limitations General appearance: alert, in no apparent distress Course Vital Signs Temperature 100.1 F H 04/18/19 06:56 Pulse Rate 123 04/18/19 06:56 Respiratory Rate 16 04/18/19 06:56 Blood Pressure 117/73 04/18/19 06:56 O2 Sat by Pulse Oximetry 93 04/18/19 06:56 Temperature 98.4 F 04/18/19 08:03 Pulse Rate 124 04/18/19 08:28 Respiratory Rate 28 04/18/19 08:28 Blood Pressure 109/47 04/18/19 08:28 O2 Sat by Pulse Oximetry 100 04/18/19 08:28 Oxygen Delivery Oxygen Delivery Nasal Cannula Medical Decision Making - [facility] Narrative Medical decision making narrative: 07:30 hours: she qualifies for SIRS criteria, her white count is elevated at 33,000.. She had C. difficile an outside facility last time was treated with vancomycin, with her white count high and having the abdominal issue again I am and ago and started on vancomycin here today. 0813 hrs.: Patient is stable, she is hyponatremic, she is not acidotic, her lactate is not elevated. So she does have C. difficile but she is not septic at this time. We will bring her into the hospital for antibiotics and further treatment. - Lab Data Result diagrams: 04/18/19 07:14 04/18/19 07:14 Lab Results 04/18/19 04/18/19 04/18/19 Range/Units 07:14 07:14 07:14 WBC 33.7 H* (4.3-11.1) K/mcL RBC 3.13 L (3.82-4.97) M/mcL Hgb 8.8 L (11.5-15.4) g/dL Hct 26.8 L (35.3-44.9) % MCV 85.6 (83.0-100.0) fL MCH 28.1 (28.0-33.3) pg MCHC 32.8 (31.6-35.5) g/dL RDW 16.3 H (11.5-14.5) % Plt Count 202 (140-400) K/mcL MPV 12.6 H (9.4-12.4) fL Immature Gran % 0.8 (0-4) % Seg Neutrophils % 89.5 % Lymphocytes % 3.6 % Monocytes % 5.1 % Eosinophils % 0.8 % Basophils % 0.2 % Neutrophils # 30.2 H (1.6-8.9) K/mcL Lymphocytes # 1.2 (0.6-4.6) K/mcL Monocytes # 1.7 H (0.0-1.3) K/mcL Eosinophils # 0.3 (0.0-0.6) K/mcL Basophils # 0.1 (0.0-0.2) K/mcL Platelet Estimate Normal (Normal) Sodium 125 L (136-145) mEq/L Potassium 3.6 (3.5-5.1) mEq/L Chloride 92 L (98-107) mEq/L Carbon Dioxide 26 (23-29) mEq/L BUN 5 L (8-23) mg/dL Creatinine 0.28 L (0.60-1.20) mg/dL Est GFR ( Amer) > 60 (> 60) Est GFR (Non-Af Amer) > 60 (> 60) BUN/Creatinine Ratio 18 (6-26) Glucose 106 H (70-105) mg/dL Calculated Osmolality 258 L (280-300) Lactic Acid 1.2 (0.5-2.2) mmol/L Calcium 8.6 (8.6-10.3) mg/dL Phosphorus 4.1 (2.7-4.5) mg/dL Magnesium 1.2 L (1.6-2.6) mg/dL Total Bilirubin 0.4 (0.3-1.0) mg/dL Direct Bilirubin 0.1 (0.0-0.2) mg/dL Indirect Bilirubin 0.3 (0.0-1.2) mg/dL AST 12 L (13-39) Units/L ALT 5 L (7-52) Units/L Alkaline Phosphatase 122 H (34-104) Units/L Troponin I < 0.03 (< 0.04) ng/mL Serum Total Protein 6.2 L (6.4-8.9) g/dL Albumin 2.7 L (3.5-5.7) g/dL Globulin 3.5 (2.4-3.5) g/dL Albumin/Globulin Ratio 0.8 L (1.1-2.2) Lipase < 3 L (11-82) Units/L Stool Occult Bld Scrn (Negative) 04/18/19 Range/Units 07:25 WBC (4.3-11.1) K/mcL RBC (3.82-4.97) M/mcL Hgb (11.5-15.4) g/dL Hct (35.3-44.9) % MCV (83.0-100.0) fL MCH (28.0-33.3) pg MCHC (31.6-35.5) g/dL RDW (11.5-14.5) % Plt Count (140-400) K/mcL MPV (9.4-12.4) fL Immature Gran % (0-4) % Seg Neutrophils % % Lymphocytes % % Monocytes % % Eosinophils % % Basophils % % Neutrophils # (1.6-8.9) K/mcL Lymphocytes # (0.6-4.6) K/mcL Monocytes # (0.0-1.3) K/mcL Eosinophils # (0.0-0.6) K/mcL Basophils # (0.0-0.2) K/mcL Platelet Estimate (Normal) Sodium (136-145) mEq/L Potassium (3.5-5.1) mEq/L Chloride (98-107) mEq/L Carbon Dioxide (23-29) mEq/L BUN (8-23) mg/dL Creatinine (0.60-1.20) mg/dL Est GFR ( Amer) (> 60) Est GFR (Non-Af Amer) (> 60) BUN/Creatinine Ratio (6-26) Glucose (70-105) mg/dL Calculated Osmolality (280-300) Lactic Acid (0.5-2.2) mmol/L Calcium (8.6-10.3) mg/dL Phosphorus (2.7-4.5) mg/dL Magnesium (1.6-2.6) mg/dL Total Bilirubin (0.3-1.0) mg/dL Direct Bilirubin (0.0-0.2) mg/dL Indirect Bilirubin (0.0-1.2) mg/dL AST (13-39) Units/L ALT (7-52) Units/L Alkaline Phosphatase (34-104) Units/L Troponin I (< 0.04) ng/mL Serum Total Protein (6.4-8.9) g/dL Albumin (3.5-5.7) g/dL Globulin (2.4-3.5) g/dL Albumin/Globulin Ratio (1.1-2.2) Lipase (11-82) Units/L Stool Occult Bld Scrn Positive A (Negative) Attestation Statement - Attestation Attestation: This documentation is done with the assistance of Dragon dictation. Despite efforts made to ensure accuracy, there may be inaccuracies in software developer mid level or spelling and typographical errors. I examined this patient and my medical decision-making was reviewed with the Resident Physician. I agree with the documented findings, disposition and treatment plan as described except to the extent set forth below. Patient was seen and evaluated by Dr. Kaye, I agree with their evaluation and management plan, I supervised care the patient's stay. Patient presents today by EMS with abdominal pain which is chronic and has nausea and diarrhea. She got 4 mg of Zofran around feeling better. She also complains of chronic low back pain and h urting all over. She has nonsurgical abdomen today we will check labs reviewed her records and see if we need to do any imaging today. I reviewed the residents documentation and agree with the residents assessment and plan of care. I have personally had face to face time with the patient. (Brief History, Brief Exam, and MDM) I personally supervised and was present for the garcia/critical portions of the following procedures completed by the resident: EKG was interpreted by the resident under my supervision, I agree with their interpretation.
[2019-04-18] MEDS ORDERED: Ipratropium/Albuterol Neb 3 ML IH ONE (07:24)
[2019-04-18 07:28] LABS: Eosinophils % 0.8 %; Immature Granulocytes % 0.8 % (0-4)
[2019-04-18 07:29] LABS: Basophils # 0.1 K/mcL (0.0-0.2); Basophils % 0.2 %; Eosinophils # 0.3 K/mcL (0.0-0.6); Hematocrit 26.8 % (35.3-44.9); Hemoglobin 8.8 g/dL (11.5-15.4); Lymphocytes # 1.2 K/mcL (0.6-4.6); Lymphocytes % 3.6 %; Mean Corpuscular HGB Conc 32.8 g/dL (31.6-35.5); Mean Corpuscular Hemoglobin 28.1 pg (28.0-33.3); Mean Corpuscular Volume 85.6 fL (83.0-100.0); Mean Platelet Volume 12.6 fL (9.4-12.4); Monocytes # 1.7 K/mcL (0.0-1.3); Monocytes % 5.1 %; Neutrophils # 30.2 K/mcL (1.6-8.9); Platelet Count 202 K/mcL (140-400); Red Blood Count 3.13 M/mcL (3.82-4.97); Red Cell Distribution Width 16.3 % (11.5-14.5); Segmented Neutrophils % 89.5 %
[2019-04-18 07:32] LABS: White Blood Count 33.7 K/mcL (4.3-11.1)
[2019-04-18 07:33] LABS: Platelet Estimate Normal (Normal)
[2019-04-18] MEDS ORDERED: 0.9 % Sodium Chloride 1,000 ML IVC ONE ×2 (07:34→17:20)
[2019-04-18] MEDS ORDERED: Vancomycin Oral Soln 125 MG/2.5 ML UDC PO STA (07:37)
[2019-04-18 08:01] LABS: Alanine Aminotransferase 5 Units/L (7-52); Albumin 2.7 g/dL (3.5-5.7); Albumin/Globulin Ratio 0.8 (1.1-2.2); Alkaline Phosphatase 122 Units/L (34-104); Aspartate Amino Transferase 12 Units/L (13-39); BUN/Creatinine Ratio 18 (6-26); Bilirubin,Direct 0.1 mg/dL (0.0-0.2); Bilirubin,Indirect 0.3 mg/dL (0.0-1.2); Bilirubin,Total 0.4 mg/dL (0.3-1.0); Blood Urea Nitrogen 5 mg/dL (8-23); Calcium 8.6 mg/dL (8.6-10.3); Carbon Dioxide 26 mEq/L (23-29); Chloride 92 mEq/L (98-107); Globulin 3.5 g/dL (2.4-3.5); Glucose 106 mg/dL (70-105); Magnesium 1.2 mg/dL (1.6-2.6); Osmolality,Calculated 258 (280-300); Phosphorous 4.1 mg/dL (2.7-4.5); Potassium 3.6 mEq/L (3.5-5.1); Sodium 125 mEq/L (136-145); Total Protein 6.2 g/dL (6.4-8.9); Troponin I < 0.03 ng/mL (< 0.04); eGFR For African Americans > 60 (> 60); eGFR For Non-African Americans > 60 (> 60)
[2019-04-18] MEDS ORDERED: Ondansetron 4 MG/2 ML VIAL IVP ONE (08:18)
[2019-04-18 08:19] LABS: Lipase < 3 Units/L (11-82)
--- NOTE | 2019-04-18 09:04 | Internal Med History&Physical ---
Date of Encounter: 04/18/19 Time of Encounter: 09:01 Internal Medicine - H&P: HPI History of present illness: Female patient with a history of recent diagnosis of C. difficile, COPD, hypertension presents for worsening abdominal pain and diarrhea. She was recently admitted for C diff colitis and treated with a 10 day course of oral vancomycin. She was discharged in stable condition to home. She admits to subjective fevers at ome and symptoms worsen when laying down. Plan initially was patient to be discharged to [facility] but could not and so was discharged home. In the ED a WBC count was elevated at 33k, elevated temperature at 100.1 F and tachycardic. Past Med Surg Social Fam HX - Past Medical History Medical history: COPD, GERD, hypertension, liver disease, thyroid disease, TIA, other Additional medical history: depression, back pain, chest pain, headache Psychiatric history: anxiety, depression - Past Surgical History Surgical History: other Additional surgical history: D&C - Social History Smoking Status: Current every day smoker Smokeless Tobacco Status: No Alcohol use: none, heavy, recent Drug use: none - Family History Brother Adopted: No Living Status: Hx Family Cancer: Yes (Lung) Mother Living Status: Hx Family Cardiac Disorders: No Hx Family Respiratory Disorders: Yes (asthma) Hx Family Cancer: Yes (breast) Internal Medicine - H&P: Meds Escitalopram [Lexapro] 10 mg PO DAILY 12/30/17 [History] Cetirizine HCl [24Hour Allergy] 10 mg PO DAILY 09/14/18 [History] Levothyroxine Sodium [Tirosint] 25 mcg PO QAM 09/14/18 [History] Meloxicam [Mobic] 15 mg PO DAILY 09/14/18 [History] hydrOXYzine HCl [Hydroxyzine HCl] 25 mg PO TID PRN 12/07/18 [History] Fluticasone Propionate Nasal [Flonase] 1 spr NS DAILY 12/08/18 [History] Mirtazapine 7.5 mg PO HS 12/08/18 [History] Trazodone HCl 50 mg PO HS 12/08/18 [History] Albuterol Sulfate [Proventil Inhaler] 2 puff IH Q4H PRN 01/17/19 [History] Ipratropium/Albuterol Sulfate [Combivent Respimat 20-100 Mcg] 1 puff IH Q6H PRN 01/17/19 [History] Tizanidine HCl 2 mg PO Q8H PRN 01/17/19 [History] amLODIPine [Norvasc] 5 mg PO DAILY #30 tablet 01/23/19 [Rx] Albuterol Neb [Proventil Neb] 2.5 mg IH Q4H PRN 02/10/19 [History] Fluticasone/Umeclidin/Vilanter [Trelegy Ellipta 100-62.5-25] 1 puff PO DAILY 02/10/19 [History] Cholecalciferol (D-3) [Vitamin D] 1,000 unit PO DAILY #30 tablet 02/14/19 [Rx] Ferrous Sulfate 325 mg PO BIDWM #60 tablet 02/14/19 [Rx] Magnesium Oxide [Mag-Ox] 400 mg PO TID #90 tablet 02/14/19 [Rx] Acetaminophen [Extra Strength Non-Aspirin] 500 mg PO Q6H PRN 03/04/19 [History] Buspirone HCl [Buspar] 15 mg PO BID 03/04/19 [History] Guaifenesin [Cough Syrup] 100 mg PO Q6H PRN 03/04/19 [History] Metoprolol [Lopressor] 25 mg PO BID 03/04/19 [History] Omeprazole [PriLOSEC] 20 mg PO DAILY 03/04/19 [History] Calcium Carbonate [Tums] 1,000 mg PO Q4HR PRN 04/04/19 [History] Fluticasone/Vilanterol [Breo Ellipta 100-25 Mcg INH] 1 each IH DAILY 04/04/19 [History] Loperamide HCl [Anti-Diarrheal] 2 mg PO Q6H PRN 04/04/19 [History] Allergy/AdvReac Type Severity Reaction Status Date / Time No Known Allergies Allergy Verified 02/10/19 21:37 All Systems PM: A 10-system review of systems was performed and is negative for pertinent findings except as documented above in the HPI. - Constitutional Constitutional: fever(s), no chills, no night sweats - EENT Eyes: no change in vision, no discharge, no pain, no photophobia Ears: no ear discharge, no ear pain, no tinnitus Nose, mouth and throat: no dysphagia, no nasal discharge, no neck pain, no sore throat - Cardiovascular Cardiovascular ROS IM: no chest pain, no diaphoresis, no dyspnea, no lightheadedness, no palpitations, no syncope - Respiratory Respiratory: no cough, no dyspnea, no wheezing, no excessive phlegm production - Gastrointestinal Gastrointestinal: abdominal pain, diarrhea, nausea, vomiting, no hematemesis, no hematochezia, no melena - Genitourinary Genitourinary: no change in urinary stream, no dysuria, no flank pain, no h ematuria - Musculoskeletal Musculoskeletal ROS IM: no numbness, no tingling - Integumentary Integumentary IM: no rash, no unusual bruising - Neurological Neurological ROS: no confusion, no convulsions, no focal weakness, no numbness, no tingling, no tremor(s) - Hematologic/Lymphatic Hematologic/Lymphatic: no easy bruising - Constitutional Vitals: Temp Pulse Resp BP Pulse Ox 98.4 F 124 28 109/47 100 04/18/19 08:03 04/18/19 08:28 04/18/19 08:28 04/18/19 08:28 04/18/19 08:28 General appearance: Present: A&O X 3, underweight Exam: . - Head Head exam: Present: atraumatic, normocephalic - Eye Eye exam: Present: PERRL, conjuntiva pink, sclera anicteric Pupils: Present: PERRL - Neck Neck exam general surgery: Present: supple, trachea midline. Absent: lymphadenopathy - Respiratory Respiratory exam: Present: CTAB. Absent: accessory muscle use, rales, rhonchi, wheezes - Cardiovascular Cardiovascular exam: Present: RRR, +S1, +S2. Absent: diastolic murmur, gallop, rubs, systolic murmur - GI/Abdominal GI/Abdominal exam: Present: normal bowel sounds, soft, no peritoneal signs. Absent: distended, tenderness - Extremities Exam Extremities exam: Present: warm, radial pulses palpable and symmetrical. Absent: calf tenderness, cyanotic, pedal edema - Neurological Exam Neurological exam: Present: CN II-XII intact, oriented X3, no focal deficits. Absent: pronater drift, facial droop, speech deficit - Skin Skin exam: Present: dry, intact Internal Med - H&P Results - Labs CBC & Chem 7: 04/18/19 07:14 04/18/19 07:14 Labs: Short CBC 04/18/19 Range/Units 07:14 WBC 33.7 H* (4.3-11.1) K/mcL Hgb 8.8 L (11.5-15.4) g/dL Hct 26.8 L (35.3-44.9) % Plt Count 202 (140-400) K/mcL Neutrophils # 30.2 H (1.6-8.9) K/mcL BMP 04/18/19 07:14 Sodium 125 L Potassium 3.6 Chloride 92 L Carbon Dioxide 26 BUN 5 L Creatinine 0.28 L Glucose 106 H Calcium 8.6 Cardiac Enzymes 04/18/19 Range/Units 07:14 Troponin I < 0.03 (< 0.04) ng/mL Liver Function 04/18/19 Range/Units 07:14 Total Bilirubin 0.4 (0.3-1.0) mg/dL Direct Bilirubin 0.1 (0.0-0.2) mg/dL AST 12 L (13-39) Units/L ALT 5 L (7-52) Units/L Alkaline Phosphatase 122 H (34-104) Units/L Albumin 2.7 L (3.5-5.7) g/dL - Impressions ITS Impressions Chest X-Ray 04/18/19 07:08 IMPRESSION: No acute cardiopulmonary disease. COPD. D/ / 04/18/2019 07:44:07 Yulisa Meehan MD / [facility] Interpreting Provider: Yulisa Meehan MD - Assessment and Plan (1) Sepsis Current Visit: Yes Status: Acute Assessment and plan: Source is colitis, likely C diff. Meets SIRS criteria for leukocytosis, tachycardia, tachypnea. BP normal, lactic acid within normal limits. She completed a 10 day course of vancomycin but symptoms have returned. Patient appears dehydrated and is also dry heaving in room. She will need IV fluids W ill need to resume PO vanc. Will check stool studies for any other etiology of symptoms, though this is likely recurrence of C diff. Continue IV fluid hydration. Follow-up blood cultures. If symptoms don't improve, may need CT abdomen/pelvis. Qualifiers: Sepsis type: sepsis due to unspecified organism Sepsis acute organ dysfunction status: unspecified Qualified Code(s): A41.9 - Sepsis, unspecified organism (2) Hyponatremia Current Visit: Yes Status: Chronic Assessment and plan: At baseline (3) C. difficile colitis Current Visit: No Status: Acute Assessment and plan: see above (4) Severe protein-calorie malnutrition Current Visit: No Status: Acute (5) Anemia Current Visit: No Status: Chronic Assessment and plan: No acute issues, at baseline. Qualifiers: Anemia type: due to chronic kidney disease Chronic kidney disease stage: stage 3 (moderate) Qualified Code(s): N18.3 - Chronic kidney disease, stage 3 (moderate); D63.1 - Anemia in chronic kidney disease (6) COPD (chronic obstructive pulmonary disease) Current Visit: No Status: Chronic Assessment and plan: No acute exacerbation. Qualifiers: COPD type: unspecified COPD Qualified Code(s): J44.9 - Chronic obstructive pulmonary disease, unspecified (7) Chronic low back pain Current Visit: No Status: Chronic Qualifiers: Back pain laterality: unspecified Sciatica presence: unspecified whether sciatica present Qualified Code(s): M54.5 - Low back pain; G89.29 - Other chronic pain (8) Chronic respiratory failure with hypoxia Current Visit: No Status: Chronic (9) Debility Current Visit: No Status: Chronic Assessment and plan: PT/OT when patient is less symptomatic. (10) GERD (gastroesophageal reflux disease) Current Visit: No Status: Chronic Qualifiers: Esophagitis presence: esophagitis presence not specified Qualified Code(s): K21.9 - Gastro-esophageal reflux disease without esophagitis (11) Hepatic steatosis Current Visit: No Status: Chronic (12) Hypertension Current Visit: No Status: Chronic Qualifiers: Hypertension type: essential hypertension Qualified Code(s): I10 - Essential (primary) hypertension (13) Hypothyroidism Current Visit: No Status: Chronic Qualifiers: Hypothyroidism type: acquired Qualified Code(s): E03.9 - Hypothyroidism, unspecified (14) DVT prophylaxis Current Visit: No Status: Acute Assessment and plan: Heparin SQ - Time Spent With Patient Total time spent is greater than 50% in coordination of care (as documented) at patient's floor/unit and/or counseling patient:
[2019-04-18] MEDS ORDERED: GuaiFENesin Liq 200 MG/10 ML UDC PO PRN (09:17)
[2019-04-18] MEDS ORDERED: NON-FORMULARY MEDICATION 1 EACH EACH (Ipratropium/Albuterol Sulfate [Combivent Respimat 20 IH PRN (09:17)
[2019-04-18] MEDS ORDERED: NON-FORMULARY MEDICATION 1 EACH EACH (Loperamide Hcl [Anti-Diarrheal] 2 MG) PO PRN (09:17)
[2019-04-18] MEDS ORDERED: Naloxone 0.4 MG/ML INJ IVP PRN (09:21)
[2019-04-18] MEDS ORDERED: Ipratropium/Albuterol Neb 3 ML IH PRN (09:28)
[2019-04-18] MEDS ORDERED: *HR* Promethazine 25 MG/ML VIAL IVP PRN (10:26)
[2019-04-18] MEDS: Tiotropium 18 MCG inhalation IH SCH (11:14)
[2019-04-18] MEDS: Budesonide/Formoterol 160/4.5 1 PUFF INH IH SCH ×2 (11:14→22:17)
[2019-04-18] MEDS: 0.9 % Sodium Chloride 1,000 ML IVC SCH ×2 (11:42→22:11)
[2019-04-18] MEDS ORDERED: 0.9 % Sodium Chloride 500 ML IVC ONE ×2 (12:17→17:06)
[2019-04-18] MEDS: Magnesium Oxide 400 MG TABLET PO SCH ×2 (13:06→20:20)
[2019-04-18] MEDS: Vancomycin Oral Soln 125 MG/2.5 ML UDC PO SCH ×3 (14:47→20:06)
[2019-04-18] MEDS: *HR* Heparin 5,000 UNIT/ML VIAL SQ SCH (16:37)
[2019-04-18] MEDS: Mirtazapine 15 MG TABLET PO SCH (20:19)
[2019-04-18] MEDS: Lactobacillus 1 EACH CAP.SPRINK PO SCH (20:20)
[2019-04-18] MEDS: traZODone 50 MG TABLET PO SCH (20:20)
[2019-04-18] MEDS: tiZANidine 4 MG TABLET PO PRN (20:22)
[2019-04-18] MEDS ORDERED: metroNIDAZOLE 500 MG TABLET PO SCH (21:00)
[2019-04-18] MEDS: Piperacillin/Tazobactam 3.375 GM in 0.9 % Sodium Chloride Mini Bag 100 ML IVPB SCH (21:30)
[2019-04-18] MEDS: Ondansetron 4 MG/2 ML VIAL IVP PRN (21:30)
[2019-04-18] MEDS ORDERED: Acetaminophen IV 500 MG/50 ML INFUS..BTL IVPB ONE (22:32)
[2019-04-19] MEDS: *HR* Promethazine 25 MG/ML VIAL IVP PRN ×2 (04:54→13:55)
[2019-04-19] MEDS: Piperacillin/Tazobactam 3.375 GM in 0.9 % Sodium Chloride Mini Bag 100 ML IVPB SCH (04:54)
[2019-04-19] MEDS: *HR* Heparin 5,000 UNIT/ML VIAL SQ SCH ×2 (04:56→18:11)
[2019-04-19] MEDS: Levothyroxine 25 MCG TABLET PO SCH (06:31)
[2019-04-19 07:05] LABS: Basophils # 0.1 K/mcL (0.0-0.2); Basophils % 0.3 %; Eosinophils # 0.8 K/mcL (0.0-0.6); Eosinophils % 3.9 %; Hematocrit 23.7 % (35.3-44.9); Hemoglobin 7.7 g/dL (11.5-15.4); Immature Granulocytes % 0.4 % (0-4); Lymphocytes % 4.6 %; Mean Corpuscular HGB Conc 32.5 g/dL (31.6-35.5); Mean Corpuscular Hemoglobin 27.8 pg (28.0-33.3); Mean Corpuscular Volume 85.6 fL (83.0-100.0); Mean Platelet Volume 10.3 fL (9.4-12.4); Monocytes # 1.3 K/mcL (0.0-1.3); Monocytes % 6.1 %; Neutrophils # 17.6 K/mcL (1.6-8.9); Platelet Count 412 K/mcL (140-400); Red Blood Count 2.77 M/mcL (3.82-4.97); Red Cell Distribution Width 16.5 % (11.5-14.5); Segmented Neutrophils % 84.7 %; White Blood Count 20.8 K/mcL (4.3-11.1)
[2019-04-19] MEDS: Budesonide/Formoterol 160/4.5 1 PUFF INH IH SCH ×2 (07:13→20:59)
[2019-04-19] MEDS: Tiotropium 18 MCG inhalation IH SCH ×2 (07:14→07:52)
[2019-04-19 07:31] LABS: BUN/Creatinine Ratio 13 (6-26); Blood Urea Nitrogen 4 mg/dL (8-23); Calcium 7.5 mg/dL (8.6-10.3); Carbon Dioxide 24 mEq/L (23-29); Chloride 99 mEq/L (98-107); Glucose 76 mg/dL (70-105); Osmolality,Calculated 260 (280-300); Potassium 3.2 mEq/L (3.5-5.1); Sodium 127 mEq/L (136-145); eGFR For African Americans > 60 (> 60); eGFR For Non-African Americans > 60 (> 60)
[2019-04-19] MEDS: Loratadine 10 MG TABLET PO SCH (08:23)
[2019-04-19] MEDS: Magnesium Oxide 400 MG TABLET PO SCH ×3 (08:25→20:15)
[2019-04-19] MEDS: MetroNIDAZOLE 500 MG/100 ML 500 MG/100 ML BAG IVPB SCH ×3 (08:25→22:51)
[2019-04-19] MEDS: Lactobacillus 1 EACH CAP.SPRINK PO SCH ×2 (08:25→20:15)
[2019-04-19] MEDS: Cholecalciferol (D-3) 1,000 UNIT (25MCG) TABLET PO SCH (08:25)
[2019-04-19] MEDS: amLODIPine 5 MG TABLET PO SCH (08:25)
[2019-04-19] MEDS: Vancomycin Oral Soln 125 MG/2.5 ML UDC PO SCH ×4 (08:33→20:16)
[2019-04-19] MEDS ORDERED: NON-FORMULARY MEDICATION 1 EACH EACH (Fluticasone/Umeclidin/Vilanter [Trelegy Ellipta 100- PO SCH (09:00)
[2019-04-19] MEDS ORDERED: NON-FORMULARY MEDICATION 1 EACH EACH (Fluticasone/Vilanterol [Breo Ellipta 100-25 Mcg Inh] IH SCH (09:00)
[2019-04-19] MEDS: Ondansetron 4 MG/2 ML VIAL IVP PRN (09:04)
--- NOTE | 2019-04-19 10:53 | Internal Med Progress Note ---
Hospitalist Progress Note - Encounter Date of Encounter: 04/19/19 Time of Encounter: 09:53 - Subjective Interval History: Patient seen and examined this morning at bedside. No acute overnight events. Feeling about the same as yesterday. Still having diarrhea. Slightly nauseous unable to tolerate minimally by mouth. Has generalized abdominal discomfort. Denies any chest pain or difficulty breathing. Wants opiates which she takes at a home for pain in her back. She mentioned she took about 7 days of antibiotic in the last time. - Exam Vitals: Temp Pulse Resp BP Pulse Ox 98.0 F 87 18 103/60 95 04/19/19 07:07 04/19/19 07:07 04/19/19 07:14 04/19/19 07:07 04/19/19 07:14 Exam: General: In no acute distress. Respiratory exam: CTAB. no accessory muscle use, rales, rhonchi, wheezes Cardiovascular exam: RRR, +S1, +S2. no murmur, gallop, rubs. GI/Abdominal exam: Non-distended, increased bowel sounds, soft, no peritoneal signs. generalized abdominal tenderness Extremities exam: no pedal edema, pulses palpable in b/l lower extremities. no calf tenderness Neurological exam: CN II-XII intact, AO X3, no focal deficits. Skin exam: No skin rash - Assessment and Plan (1) Hepatic steatosis Current Visit: No Status: Chronic (2) Hypertension Current Visit: No Status: Chronic (3) DVT prophylaxis Current Visit: No Status: Acute (4) Chronic respiratory failure with hypoxia Current Visit: No Status: Chronic (5) COPD (chronic obstructive pulmonary disease) Current Visit: No Status: Chronic (6) Debility Current Visit: No Status: Chronic (7) Anemia Current Visit: No Status: Chronic (8) Hyponatremia Current Visit: Yes Status: Chronic (9) Chronic low back pain Current Visit: No Status: Chronic (10) Hypothyroidism Current Visit: No Status: Chronic (11) Severe protein-calorie malnutrition Current Visit: No Status: Acute (12) C. difficile colitis Current Visit: No Status: Acute (13) GERD (gastroesophageal reflux disease) Current Visit: No Status: Chronic (14) Sepsis Current Visit: Yes Status: Acute - Summary of Assessment and Plan Summary of Assessment and Plan: Assessment Acute sepsis Cdiff colitis Hyponatremia Anemia severe protein calorie malnutrition Chronic COPD depression GERD Hepatic steatosis Hypertension Hypothyroidism Plan - Sepsis likely secondary to colitis, likely cdiff. Unclear whether she finished antibiotic course as she mentions she did not get script. blood culture NGTD. c/w flagyl IV and vancomcin PO. stop zosyn. c/w IV 0.9 NS. Will increase if continues to have diarrhea. - anemia acute on chronic. likely iron deficiency. c/w iron supplementation. Replete Mg and potassium - no in acute exacerbation of COPD. prn albuterol. c/w home symbicort and spiriva. - Will resume home opiates once diarrhea improves - c/w home depression medications. - Time Spent with Patient Total time spent is greater than 50% in coordination of care (as documented) at patient's floor/unit and/or counseling patient: Internal Medicine: Result - Labs CBC & Chem 7: 04/19/19 06:50 04/19/19 06:50 Labs: Short CBC 04/19/19 Range/Units 06:50 WBC 20.8 H (4.3-11.1) K/mcL Hgb 7.7 L (11.5-15.4) g/dL Hct 23.7 L (35.3-44.9) % Plt Count 412 H D (140-400) K/mcL Neutrophils # 17.6 H (1.6-8.9) K/mcL BMP 04/19/19 06:50 Sodium 127 L Potassium 3.2 L Chloride 99 Carbon Dioxide 24 BUN 4 L Creatinine 0.32 L Glucose 76 Calcium 7.5 L - Impressions Impressions Chest X-Ray 04/18/19 07:08 IMPRESSION: No acute cardiopulmonary disease. COPD. D/ / 04/18/2019 07:44:07 Yulisa Meehan MD / [facility] Interpreting Provider: Yulisa Meehan MD Abdomen/Pelvis CT 04/18/19 17:16 IMPRESSION: Severe pancolitis. Findings have progressed from prior exam. Findings may be due to Clostridium difficile colitis or other infectious inflammatory process. Clinical correlation recommended D/ / Royce Smith / Royce Smith Interpreting Provider: Royce Smith Consult Discharge Plan - Plan Referrals: Terrie Joseph, SHOE FOLDER [Primary Care Provider] - (2) Hypertension Qualifiers: Hypertension type: essential hypertension Qualified Code(s): I10 - Essential (primary) hypertension (5) COPD (chronic obstructive pulmonary disease) Qualifiers: COPD type: unspecified COPD Qualified Code(s): J44.9 - Chronic obstructive pulmonary disease, unspecified (7) Anemia Qualifiers: Anemia type: due to chronic kidney disease Chronic kidney disease stage: stage 3 (moderate) Qualified Code(s): N18.3 - Chronic kidney disease, stage 3 (moderate); D63.1 - Anemia in chronic kidney disease (9) Chronic low back pain Qualifiers: Back pain laterality: unspecified Sciatica presence: unspecified whether sciatica present Qualified Code(s): M54.5 - Low back pain; G89.29 - Other chronic pain (10) Hypothyroidism Qualifiers: Hypothyroidism type: acquired Qualified Code(s): E03.9 - Hypothyroidism, unspecified (13) GERD (gastroesophageal reflux disease) Qualifiers: Esophagitis presence: esophagitis presence not specified Qualified Code(s): K21.9 - Gastro-esophageal reflux disease without esophagitis (14) Sepsis Qualifiers: Sepsis type: sepsis due to unspecified organism Sepsis acute organ dysfunction status: unspecified Qualified Code(s): A41.9 - Sepsis, unspecified organism
[2019-04-19] MEDS: Fluticasone Propionate Nasal 50 MCG/SPRAY BOTTLE NS SCH (11:25)
[2019-04-19 11:59] LABS: Campylobacter by PCR Not detected (Not detect)
[2019-04-19 12:00] LABS: Adenovirus F 40/41 PCR Not detected (Not detect); Astrovirus PCR Not detected (Not detect); C.difficile Toxin A/B Gene PCR DETECTED (Not detect); Cryptosporidium by PCR Not detected (Not detect); Cyclospora cayetanensis PCR Not detected (Not detect); E. coli O157 by PCR Not detected (Not detect); Entamoeba histolytica PCR Not detected (Not detect); Enteroaggregative E.coli(EAEC) Not detected (Not detect); Enteropathogenic E.coli(EPEC) Not detected (Not detect); Enterotoxigenic E.coli (ETEC) Not detected (Not detect); Giardia lamblia PCR Not detected (Not detect); Norovirus GI/GII PCR Not detected (Not detect); Plesiomonas shigelloides PCR Not detected (Not detect); Rotavirus A PCR Not detected (Not detect); Salmonella PCR Not detected (Not detect); Sapovirus PCR Not detected (Not detect); Shig/EnteroinvasiveE coli EIEC Not detected (Not detect); Shigalike tox-prod E coli STEC Not detected (Not detect); Vibrio PCR Not detected (Not detect); Vibrio cholerae PCR Not detected (Not detect); Yersinia enterocolitica PCR Not detected (Not detect)
[2019-04-19] MEDS ORDERED: MetroNIDAZOLE 500 MG/100 ML 500 MG/100 ML BAG IVPB SCH (17:19)
--- NOTE | 2019-04-19 18:17 | Electrocardiograph Report ---
[employer] Test Date: 2019-04-18 Pat Name: Montserrat Rodriguez Department: [id number] Room: 2A12 Gender: F [employer]: : 1960 Requested By: Ellie Kaye Order Number: [id number] Reading MD: Greyson Mari Measurements Intervals [place] Rate: 122 P: 77 MO: 182 QRS: 86 QRSD: 94 T: 27 QT: 319 QTc: 455 Interpretive Statements Sinus tachycardia Electronically Signed On 04-19-2019 18:15:54 EDT by Greyson Mari
[2019-04-19] MEDS: tiZANidine 4 MG TABLET PO PRN (20:15)
[2019-04-19] MEDS: traZODone 50 MG TABLET PO SCH (20:15)
[2019-04-19] MEDS: Mirtazapine 15 MG TABLET PO SCH (20:16)
[2019-04-20] MEDS: Ondansetron 4 MG/2 ML VIAL IVP PRN (04:58)
[2019-04-20 05:05] LABS: Immature Granulocytes % 1.2 % (0-4)
[2019-04-20 05:07] LABS: Basophils # 0.1 K/mcL (0.0-0.2); Basophils % 0.2 %; Eosinophils # 0.8 K/mcL (0.0-0.6); Eosinophils % 2.4 %; Hematocrit 27.3 % (35.3-44.9); Hemoglobin 8.9 g/dL (11.5-15.4); Lymphocytes # 0.9 K/mcL (0.6-4.6); Lymphocytes % 2.7 %; Mean Corpuscular HGB Conc 32.6 g/dL (31.6-35.5); Mean Corpuscular Hemoglobin 27.9 pg (28.0-33.3); Mean Corpuscular Volume 85.6 fL (83.0-100.0); Mean Platelet Volume 11.3 fL (9.4-12.4); Monocytes % 2.9 %; Neutrophils # 30.4 K/mcL (1.6-8.9); Platelet Count 259 K/mcL (140-400); Red Blood Count 3.19 M/mcL (3.82-4.97); Red Cell Distribution Width 16.6 % (11.5-14.5); Segmented Neutrophils % 90.6 %
[2019-04-20 05:09] LABS: White Blood Count 33.5 K/mcL (4.3-11.1)
[2019-04-20 05:28] LABS: BUN/Creatinine Ratio 9 (6-26); Blood Urea Nitrogen 2 mg/dL (8-23); Calcium 7.6 mg/dL (8.6-10.3); Carbon Dioxide 22 mEq/L (23-29); Chloride 98 mEq/L (98-107); Glucose 77 mg/dL (70-105); Iron 12 mcg/dL (50-170); Osmolality,Calculated 257 (280-300); Potassium 3.4 mEq/L (3.5-5.1); Sodium 126 mEq/L (136-145); Transferrin < 75 mg/dL (203-362); eGFR For African Americans > 60 (> 60); eGFR For Non-African Americans > 60 (> 60)
[2019-04-20 05:29] LABS: Platelet Estimate Normal (Normal)
[2019-04-20 05:30] LABS: Anisocytosis 1+ (Not Present)
[2019-04-20 05:45] LABS: Ferritin 141 ng/mL (10-120)
[2019-04-20] MEDS: *HR* Heparin 5,000 UNIT/ML VIAL SQ SCH ×2 (06:04→18:36)
[2019-04-20] MEDS: Levothyroxine 25 MCG TABLET PO SCH (06:04)
[2019-04-20] MEDS: Fluticasone Propionate Nasal 50 MCG/SPRAY BOTTLE NS SCH (08:53)
[2019-04-20] MEDS: *HR* Promethazine 25 MG/ML VIAL IVP PRN ×2 (09:01→11:02)
[2019-04-20] MEDS: MetroNIDAZOLE 500 MG/100 ML 500 MG/100 ML BAG IVPB SCH ×4 (09:02→23:37)
[2019-04-20] MEDS: Vancomycin Oral Soln 125 MG/2.5 ML UDC PO SCH ×4 (09:03→20:32)
[2019-04-20] MEDS: Lactobacillus 1 EACH CAP.SPRINK PO SCH ×2 (09:04→20:30)
[2019-04-20] MEDS: Cholecalciferol (D-3) 1,000 UNIT (25MCG) TABLET PO SCH (09:04)
[2019-04-20] MEDS: amLODIPine 5 MG TABLET PO SCH (09:04)
[2019-04-20] MEDS: Magnesium Oxide 400 MG TABLET PO SCH ×3 (09:04→20:30)
[2019-04-20] MEDS: Loratadine 10 MG TABLET PO SCH (09:04)
--- NOTE | 2019-04-20 09:54 | Internal Med Progress Note ---
Hospitalist Progress Note - Encounter Date of Encounter: 04/20/19 Time of Encounter: 09:54 - Subjective Interval History: Patient seen and examined this morning in the center. No acute overnight events however patient more nauseous. However afebrile and hemodynamically stable. Patient still with abdominal pain similar to yesterday. Noticing mild dis tention. Rectal output decreased. - Exam Vitals: Temp Pulse Resp BP Pulse Ox 98.1 F 87 20 105/68 99 04/20/19 07:50 04/20/19 07:50 04/20/19 07:50 04/20/19 07:50 04/20/19 07:50 Exam: General: In no acute distress. anxious Respiratory exam: no accessory muscle use. rales at base. Cardiovascular exam: RRR, +S1, +S2. no murmur, gallop, rubs. GI/Abdominal exam: mildly distended, increased bowel sounds, soft, no peritoneal signs. mild generalized abdominal tenderness Extremities exam: no pedal edema, pulses palpable in b/l lower extremities. no calf tenderness Neurological exam: CN II-XII intact, AO X3, no focal deficits. Skin exam: No skin rash - Assessment and Plan (1) Hepatic steatosis Current Visit: No Status: Chronic (2) Hypertension Current Visit: No Status: Chronic (3) DVT prophylaxis Current Visit: No Status: Acute (4) Chronic respiratory failure with hypoxia Current Visit: No Status: Chronic (5) COPD (chronic obstructive pulmonary disease) Current Visit: No Status: Chronic (6) Debility Current Visit: No Status: Chronic (7) Anemia Current Visit: No Status: Chronic (8) Hyponatremia Current Visit: Yes Status: Chronic (9) Chronic low back pain Current Visit: No Status: Chronic (10) Hypothyroidism Current Visit: No Status: Chronic (11) Severe protein-calorie malnutrition Current Visit: No Status: Acute (12) C. difficile colitis Current Visit: No Status: Acute (13) GERD (gastroesophageal reflux disease) Current Visit: No Status: Chronic (14) Sepsis Current Visit: Yes Status: Acute - Summary of Assessment and Plan Summary of Assessment and Plan: Assessment Acute sepsis Cdiff colitis Hyponatremia Anemia severe protein calorie malnutrition Chronic COPD depression GERD Hepatic steatosis Hypertension Hypothyroidism Plan - Sepsis likely secondary to colitis, likely cdiff. Unclear whether she finished antibiotic course as she mentions she did not get script. blood culture NGTD. gene and toxin positive. c/w flagyl IV and vancomcin PO. c/w IV 0.9 NS. Rectal output has decreased however patient also mildly nauseous and mild abdominal distention. May have some component of ileus with dicyclomine. We will stop any anticholinergic medication besides home antidepressants. Replete potassium IV. We will get IV access. We will keep nothing by mouth for now. Obtain KUB. May need NG tube placement. - hyponatremia likely secondary to hypovolemia. c/w IVf. obtain urine sodium, osmolality. - anemia acute on chronic. likely iron deficiency. c/w iron supplementation. - no in acute exacerbation of COPD. prn albuterol. c/w home inhaled symbicort and spiriva. - c/w home depression medications. will give 0.5 ativan as patient is very anxious. Also asks for opiates for pain which she mentions she takes but is not home medications. Will avoid any medication that will lead to decreased GI motility. - Time Spent with Patient Total time spent is greater than 50% in coordination of care (as documented) at patient's floor/unit and/or counseling patient: Internal Medicine: Result - Labs CBC & Chem 7: 04/20/19 04:47 04/20/19 04:47 Labs: Short CBC 04/20/19 Range/Units 04:47 WBC 33.5 H* D (4.3-11.1) K/mcL Hgb 8.9 L (11.5-15.4) g/dL Hct 27.3 L (35.3-44.9) % Plt Count 259 (140-400) K/mcL Neutrophils # 30.4 H (1.6-8.9) K/mcL BMP 04/20/19 04:47 Sodium 126 L Potassium 3.4 L Chloride 98 Carbon Dioxide 22 L BUN 2 L Creatinine 0.22 L Glucose 77 Calcium 7.6 L Consult Discharge Plan - Plan Referrals: Terrie Joseph, [employer] [Primary Care Provider] - (2) Hypertension Qualifiers: Hypertension type: essential hypertension Qualified Code(s): I10 - Essential (primary) hypertension (5) COPD (chronic obstructive pulmonary disease) Qualifiers: COPD type: unspecified COPD Qualified Code(s): J44.9 - Chronic obstructive pulmonary disease, unspecified (7) Anemia Qualifiers: Anemia type: due to chronic kidney disease Chronic kidney disease stage: stage 3 (moderate) Qualified Code(s): N18.3 - Chronic kidney disease, stage 3 (moderate); D63.1 - Anemia in chronic kidney disease (9) Chronic low back pain Qualifiers: Back pain laterality: unspecified Sciatica presence: unspecified whether sciatica present Qualified Code(s): M54.5 - Low back pain; G89.29 - Other chronic pain (10) Hypothyroidism Qualifiers: Hypothyroidism type: acquired Qualified Code(s): E03.9 - Hypothyroidism, unspecified (13) GERD (gastroesophageal reflux disease) Qualifiers: Esophagitis presence: esophagitis presence not specified Qualified Code(s): K21.9 - Gastro-esophageal reflux disease without esophagitis (14) Sepsis Qualifiers: Sepsis type: sepsis due to unspecified organism Sepsis acute organ dysfunction status: unspecified Qualified Code(s): A41.9 - Sepsis, unspecified organism
[2019-04-20] MEDS ORDERED: *HR* LORazepam 2 MG/ML VIAL IVP ONE ×2 (10:05)
[2019-04-20] MEDS: 0.9 % Sodium Chloride 1,000 ML IVC SCH ×2 (10:48→23:36)
[2019-04-20] MEDS: Budesonide/Formoterol 160/4.5 1 PUFF INH IH SCH ×2 (11:13→19:44)
[2019-04-20] MEDS: Albuterol 2.5 MG/3 ML NEBULIZER IH PRN ×2 (11:13→19:43)
[2019-04-20] MEDS: Tiotropium 18 MCG inhalation IH SCH (11:13)
[2019-04-20 18:55] LABS: Bilirubin,Urine Negative (Negative); Blood,Urine Negative (Negative); Clarity,Urine Clear (Clear); Color,Urine Yellow (Yellow); Glucose,Urine (UA) Normal (Normal); Ketones,Urine Negative (Negative); Leukocyte Esterase,Urine Negative (Negative); Nitrite,Urine Negative (Negative); PH,Urine 6.5 pH Units (5.0-8.0); Protein,Urine Negative (Neg-Trace); Specific Gravity,Urine 1.012 (1.010-1.025); Urobilinogen,Urine Normal (Normal)
[2019-04-20] MEDS: traZODone 50 MG TABLET PO SCH (20:30)
[2019-04-20] MEDS: Mirtazapine 15 MG TABLET PO SCH (20:31)
[2019-04-20] MEDS: tiZANidine 4 MG TABLET PO PRN (20:31)
[2019-04-21 04:54] LABS: BUN/Creatinine Ratio 6 (6-26); Blood Urea Nitrogen 2 mg/dL (8-23); Calcium 7.1 mg/dL (8.6-10.3); Carbon Dioxide 24 mEq/L (23-29); Chloride 99 mEq/L (98-107); Glucose 137 mg/dL (70-105); Osmolality,Calculated 268 (280-300); Potassium 3.1 mEq/L (3.5-5.1); Sodium 130 mEq/L (136-145); eGFR For African Americans > 60 (> 60); eGFR For Non-African Americans > 60 (> 60)
[2019-04-21 05:23] LABS: Hemoglobin 7.5 g/dL (11.5-15.4); Immature Granulocytes % 0.8 % (0-4)
[2019-04-21 05:25] LABS: Basophils # 0.1 K/mcL (0.0-0.2); Basophils % 0.2 %; Eosinophils # 0.9 K/mcL (0.0-0.6); Eosinophils % 3.5 %; Hematocrit 22.7 % (35.3-44.9); Immature Platelets 11.3 % (1.1-6.1); Lymphocytes # 1.9 K/mcL (0.6-4.6); Mean Corpuscular Hemoglobin 28.1 pg (28.0-33.3); Mean Platelet Volume 10.8 fL (9.4-12.4); Monocytes # 0.8 K/mcL (0.0-1.3); Monocytes % 3.1 %; Neutrophils # 22.8 K/mcL (1.6-8.9); Platelet Count 373 K/mcL (140-400); Red Blood Count 2.67 M/mcL (3.82-4.97); Red Cell Distribution Width 16.8 % (11.5-14.5); Segmented Neutrophils % 85.4 %; White Blood Count 26.7 K/mcL (4.3-11.1)
[2019-04-21] MEDS: *HR* Heparin 5,000 UNIT/ML VIAL SQ SCH ×2 (06:29→16:54)
[2019-04-21] MEDS: Levothyroxine 25 MCG TABLET PO SCH (06:29)
--- NOTE | 2019-04-21 07:18 | Internal Med Progress Note ---
Hospitalist Progress Note - Encounter Date of Encounter: 04/21/19 Time of Encounter: 09:16 - Subjective Interval History: Patient seen and examined this morning temperature. No acute overnight events. Denies any new complaint except some knee pain was using commode. Diarrhea significantly improved. Minimal nausea. She is feeling better and requesting anxiety medication. - Exam Vitals: Temp Pulse Resp BP Pulse Ox 98.2 F 75 18 95/55 100 04/21/19 04:05 04/21/19 04:05 04/21/19 04:05 04/21/19 04:05 04/21/19 04:05 Exam: General: In no acute distress. anxious Respiratory exam: no accessory muscle use. rales at base. Cardiovascular exam: RRR, +S1, +S2. no murmur, gallop, rubs. GI/Abdominal exam: non-distended, normal bowel sounds, soft, no peritoneal signs. mild generalized abdominal tenderness Extremities exam: no pedal edema, pulses palpable in b/l lower extremities. no calf tenderness. Stiff knee. Pain with knee extention. Neurological exam: CN II-XII intact, AO X3, no focal deficits. Skin exam: No skin rash - Assessment and Plan (1) Hepatic steatosis Current Visit: No Status: Chronic (2) Hypertension Current Visit: No Status: Chronic (3) DVT prophylaxis Current Visit: No Status: Acute (4) Chronic respiratory failure with hypoxia Current Visit: No Status: Chronic (5) COPD (chronic obstructive pulmonary disease) Current Visit: No Status: Chronic (6) Debility Current Visit: No Status: Chronic (7) Anemia Current Visit: No Status: Chronic (8) Hyponatremia Current Visit: Yes Status: Chronic (9) Chronic low back pain Current Visit: No Status: Chronic (10) Hypothyroidism Current Visit: No Status: Chronic (11) Severe protein-calorie malnutrition Current Visit: No Status: Acute (12) C. difficile colitis Current Visit: No Status: Acute (13) GERD (gastroesophageal reflux disease) Current Visit: No Status: Chronic (14) Sepsis Current Visit: Yes Status: Acute - Summary of Assessment and Plan Summary of Assessment and Plan: Assessment Acute sepsis Cdiff colitis Hyponatremia Anemia severe protein calorie malnutrition Chronic COPD depression GERD Hepatic steatosis Hypertension Hypothyroidism Plan - Sepsis likely secondary to colitis, likely cdiff. Unclear whether she finished antibiotic course as she mentions she did not get script. blood culture NGTD. gene and toxin positive. c/w flagyl IV and vancomcin PO. c/w IV 0.9 NS at 75 cc. Diarrhea minimal, leukocytosis improving. Replete potassium IV. We will get IV access. We will keep nothing by mouth for now. Obtain KUB. May need NG tube placement. - hyponatremia likely secondary to hypovolemia. c/w IVf. urine sodium, osmolality indicate prenal in nature. - anemia acute on chronic. likely iron deficiency. c/w iron supplementation. - no in acute exacerbation of COPD. prn albuterol. c/w home inhaled symbicort and spiriva. - c/w home depression medications. c/w prn 0.5 ativan as patient is very anxious. Also asks for opiates for pain which she mentions she takes but is not home medications. Will avoid any medication that will lead to decreased GI motility. prn acetaminophen. - Time Spent with Patient Total time spent is greater than 50% in coordination of care (as documented) at patient's floor/unit and/or counseling patient: Internal Medicine: Result - Labs CBC & Chem 7: 04/21/19 04:16 04/21/19 04:16 Labs: Short CBC 04/21/19 Range/Units 04:16 WBC 26.7 H (4.3-11.1) K/mcL Hgb 7.5 L (11.5-15.4) g/dL Hct 22.7 L (35.3-44.9) % Plt Count 373 (140-400) K/mcL Neutrophils # 22.8 H (1.6-8.9) K/mcL BMP 04/21/19 04:16 Sodium 130 L Potassium 3.1 L Chloride 99 Carbon Dioxide 24 BUN 2 L Creatinine 0.31 L Glucose 137 H Calcium 7.1 L Urine 04/18/19 Range/Units 18:25 Urine Color Yellow (Yellow) Urine Clarity Clear (Clear) Urine pH 6.5 (5.0-8.0) pH Units Ur Specific [place] 1.012 (1.010-1.025) Urine Protein Negative (Neg-Trace) mg/dL Urine Glucose (UA) Normal (Normal) mg/dL - Impressions Impressions KUB X-Ray 04/20/19 10:10 IMPRESSION: No acute intra-abdominal process. D/ / 04/20/2019 16:29:31 Anuel Hughes MD / Tereza Corral Interpreting Provider: Anuel Hughes MD Consult Discharge Plan - Plan Referrals: Terrie Joseph CNP [Primary Care Provider] - (2) Hypertension Qualifiers: Hypertension type: essential hypertension Qualified Code(s): I10 - Essential (primary) hypertension (5) COPD (chronic obstructive pulmonary disease) Qualifiers: COPD type: unspecified COPD Qualified Code(s): J44.9 - Chronic obstructive pulmonary disease, unspecified (7) Anemia Qualifiers: Anemia type: due to chronic kidney disease Chronic kidney disease stage: stage 3 (moderate) Qualified Code(s): N18.3 - Chronic kidney disease, stage 3 (moderate); D63.1 - Anemia in chronic kidney disease (9) Chronic low back pain Qualifiers: Back pain laterality: unspecified Sciatica presence: unspecified whether sciatica present Qualified Code(s): M54.5 - Low back pain; G89.29 - Other chronic pain (10) Hypothyroidism Qualifiers: Hypothyroidism type: acquired Qualified Code(s): E03.9 - Hypothyroidism, unspecified (13) GERD (gastroesophageal reflux disease) Qualifiers: Esophagitis presence: esophagitis presence not specified Qualified Code(s): K21.9 - Gastro-esophageal reflux disease without esophagitis (14) Sepsis Qualifiers: Sepsis type: sepsis due to unspecified organism Sepsis acute organ dysfunction status: unspecified Qualified Code(s): A41.9 - Sepsis, unspecified organism
[2019-04-21] MEDS ORDERED: Potassium Chloride 40 MEQ, Lidocaine 1% 2 ML in D5% in Water 500 ML IVPB ONE (07:22)
[2019-04-21] MEDS: MetroNIDAZOLE 500 MG/100 ML 500 MG/100 ML BAG IVPB SCH ×3 (09:35→23:21)
[2019-04-21] MEDS: Vancomycin Oral Soln 125 MG/2.5 ML UDC PO SCH ×4 (09:35→20:13)
[2019-04-21] MEDS: Fluticasone Propionate Nasal 50 MCG/SPRAY BOTTLE NS SCH (09:36)
[2019-04-21] MEDS: Loratadine 10 MG TABLET PO SCH (09:36)
[2019-04-21] MEDS: Magnesium Oxide 400 MG TABLET PO SCH ×3 (09:36→20:11)
[2019-04-21] MEDS: amLODIPine 5 MG TABLET PO SCH (09:36)
[2019-04-21] MEDS: Lactobacillus 1 EACH CAP.SPRINK PO SCH ×2 (09:36→20:11)
[2019-04-21] MEDS: Cholecalciferol (D-3) 1,000 UNIT (25MCG) TABLET PO SCH (09:36)
[2019-04-21] MEDS: Albuterol 2.5 MG/3 ML NEBULIZER IH PRN (10:18)
[2019-04-21] MEDS: Budesonide/Formoterol 160/4.5 1 PUFF INH IH SCH ×2 (10:18→20:35)
[2019-04-21] MEDS: Tiotropium 18 MCG inhalation IH SCH (10:22)
[2019-04-21] MEDS ORDERED: *HR* LORazepam 0.5 MG TABLET PO PRN (13:17)
[2019-04-21] MEDS: 0.9 % Sodium Chloride 1,000 ML IVC SCH (13:40)
[2019-04-21] MEDS: tiZANidine 4 MG TABLET PO PRN (13:49)
[2019-04-21] MEDS: traZODone 50 MG TABLET PO SCH (20:11)
[2019-04-21] MEDS: Mirtazapine 15 MG TABLET PO SCH (20:11)
[2019-04-22] MEDS: 0.9 % Sodium Chloride 1,000 ML IVC SCH (05:32)
[2019-04-22] MEDS: *HR* Heparin 5,000 UNIT/ML VIAL SQ SCH (05:32)
[2019-04-22] MEDS: Levothyroxine 25 MCG TABLET PO SCH (05:33)
[2019-04-22 05:50] LABS: Basophils # 0.1 K/mcL (0.0-0.2); Basophils % 0.2 %; Eosinophils # 1.3 K/mcL (0.0-0.6); Eosinophils % 6.2 %; Hematocrit 25.1 % (35.3-44.9); Hemoglobin 8.2 g/dL (11.5-15.4); Immature Granulocytes % 0.8 % (0-4); Lymphocytes # 2.4 K/mcL (0.6-4.6); Lymphocytes % 11.8 %; Mean Corpuscular HGB Conc 32.7 g/dL (31.6-35.5); Mean Corpuscular Hemoglobin 27.9 pg (28.0-33.3); Mean Corpuscular Volume 85.4 fL (83.0-100.0); Mean Platelet Volume 9.4 fL (9.4-12.4); Monocytes % 4.8 %; Neutrophils # 15.5 K/mcL (1.6-8.9); Platelet Count 525 K/mcL (140-400); Red Blood Count 2.94 M/mcL (3.82-4.97); Red Cell Distribution Width 16.9 % (11.5-14.5); Segmented Neutrophils % 76.2 %; White Blood Count 20.4 K/mcL (4.3-11.1)
[2019-04-22 06:23] LABS: Blood Urea Nitrogen < 2 mg/dL (8-23); Calcium 7.4 mg/dL (8.6-10.3); Carbon Dioxide 26 mEq/L (23-29); Chloride 102 mEq/L (98-107); Glucose 98 mg/dL (70-105); Potassium 3.5 mEq/L (3.5-5.1); Sodium 133 mEq/L (136-145); eGFR For African Americans > 60 (> 60); eGFR For Non-African Americans > 60 (> 60)
[2019-04-22] MEDS: Magnesium Oxide 400 MG TABLET PO SCH (08:07)
[2019-04-22] MEDS: Cholecalciferol (D-3) 1,000 UNIT (25MCG) TABLET PO SCH (08:07)
[2019-04-22] MEDS: Lactobacillus 1 EACH CAP.SPRINK PO SCH (08:07)
[2019-04-22] MEDS: Loratadine 10 MG TABLET PO SCH (08:08)
[2019-04-22] MEDS: amLODIPine 5 MG TABLET PO SCH (08:08)
[2019-04-22] MEDS: MetroNIDAZOLE 500 MG/100 ML 500 MG/100 ML BAG IVPB SCH (08:09)
[2019-04-22] MEDS: Vancomycin Oral Soln 125 MG/2.5 ML UDC PO SCH ×2 (08:09→12:57)
[2019-04-22] MEDS: Fluticasone Propionate Nasal 50 MCG/SPRAY BOTTLE NS SCH (08:10)
[2019-04-22] MEDS ORDERED: Furosemide 20 MG TABLET PO ONE (08:28)
[2019-04-22] MEDS: Budesonide/Formoterol 160/4.5 1 PUFF INH IH SCH (11:03)
[2019-04-22] MEDS: Tiotropium 18 MCG inhalation IH SCH (11:04)
[2019-04-22 11:14] VITALS: BP 128/79
--- NOTE | 2019-04-22 11:30 | Discharge Summary ---
- NOTES TO OUTPATIENT PROVIDER Notes to Outpatient Provider: Patient will be discharged to finish 10 day course of vancomycin for C. difficile. We will need follow-up blood work in about a week. Needs further outpatient follow up for anemia workup. Orders not resulted at time of discharge: Pending orders 04/18/19 07:14 Culture,Blood [BC] Stat Date of Encounter: 04/22/19 Time of Encounter: 11:29 - Discharge Diagnosis (1) Hepatic steatosis Priority: Secondary Status: Chronic (2) Hypertension Priority: Secondary Status: Chronic Qualifiers: Hypertension type: essential hypertension Qualified Code(s): I10 - Essential (primary) hypertension (3) DVT prophylaxis Priority: Secondary Status: Acute (4) Chronic respiratory failure with hypoxia Priority: Secondary Status: Chronic (5) COPD (chronic obstructive pulmonary disease) Priority: Secondary Status: Chronic Qualifiers: COPD type: unspecified COPD Qualified Code(s): J44.9 - Chronic obstructive pulmonary disease, unspecified (6) Debility Priority: Secondary Status: Chronic (7) Anemia Priority: Secondary Status: Chronic Qualifiers: Anemia type: due to chronic kidney disease Chronic kidney disease stage: stage 3 (moderate) Qualified Code(s): N18.3 - Chronic kidney disease, stage 3 (moderate); D63.1 - Anemia in chronic kidney disease (8) Hyponatremia Priority: Primary Status: Chronic (9) Chronic low back pain Priority: Secondary Status: Chronic Qualifiers: Back pain laterality: unspecified Sciatica presence: unspecified whether sciatica present Qualified Code(s): M54.5 - Low back pain; G89.29 - Other chronic pain (10) Hypothyroidism Priority: Secondary Status: Chronic Qualifiers: Hypothyroidism type: acquired Qualified Code(s): E03.9 - Hypothyroidism, unspecified (11) Severe protein-calorie malnutrition Priority: Secondary Status: Acute (12) C. difficile colitis Priority: Primary Status: Acute (13) GERD (gastroesophageal reflux disease) Priority: Secondary Status: Chronic Qualifiers: Esophagitis presence: esophagitis presence not specified Qualified Code(s): K21.9 - Gastro-esophageal reflux disease without esophagitis (14) Sepsis Priority: Primary Status: Acute Qualifiers: Sepsis type: sepsis due to unspecified organism Sepsis acute organ dysfunction status: unspecified Qualified Code(s): A41.9 - Sepsis, unspecified organism Hospital course: Ms. Rodriguez is a 59 year old female with past medical history of COPD, hypertension, liver disease, hypothyroidism who was recently diagnosed with C. difficile came with abdominal pain and diarrhea was found to have sepsis. Patient was started on vancomycin and metronidazole. Patient has associated dehydration and hyponatremia. Repeat testing for C. difficile sheen and toxin was positive. Patient improved over the course of 5 days of hospital stay. Patient tolerating oral medications and diet well. Stable to be discharged to follow up outpatient for follow-up lab in about a week. We will discharged to finish 5 more days of vancomycin given the first recurrence. I asked to be compliant with her medications. We will need follow-up with PCP to address polypharmacy if he can decrease number of medication she is taking and to optimize her medication regimen. Discharge discussed with: patient, nurse - Time Spent with Patient Total time spent providing and/or coordinating discharge services: Time spent: Greater than 30 minutes (40) - Discharge Medications Prescriptions: New LORazepam [Ativan] 0.5 mg PO DAILY PRN 4 Days #2 tablet PRN Reason: Anxiety Lactobacillus [Culturelle] 1 each PO BID 30 Days #60 cap.sprink Vancomycin Oral Soln [Firvanq] 125 mg PO QID 5 Days #20 udc Lidocaine Patch [Lidoderm 5% patch] 1 each TP DAILY 30 Days #30 adh..patch Continued Escitalopram [Lexapro] 10 mg PO DAILY Meloxicam [Mobic] 15 mg PO DAILY Levothyroxine Sodium [Tirosint] 25 mcg PO QAM Cetirizine HCl [24Hour Allergy] 10 mg PO DAILY hydrOXYzine HCl [Hydroxyzine HCl] 25 mg PO TID PRN PRN Reason: Itching Fluticasone Propionate Nasal [Flonase] 1 spr NS DAILY Mirtazapine 7.5 mg PO HS Trazodone HCl 50 mg PO HS Albuterol Sulfate [Proventil Inhaler] 2 puff IH Q4H PRN PRN Reason: Shortness Of Breath Ipratropium/Albuterol Sulfate [Combivent Respimat 20-100 Mcg] 1 puff IH Q6H PRN PRN Reason: Shortness Of Breath Tizanidine HCl 2 mg PO Q8H PRN PRN Reason: Muscle Spasm amLODIPine [Norvasc] 5 mg PO DAILY #30 tablet Albuterol Neb [Proventil Neb] 2.5 mg IH Q4H PRN PRN Reason: Shortness Of Breath Fluticasone/Umeclidin/Vilanter [Trelegy Ellipta 100-62.5-25] 1 puff PO DAILY Ferrous Sulfate 325 mg PO BIDWM #60 tablet Magnesium Oxide [Mag-Ox] 400 mg PO TID #90 tablet Cholecalciferol (D-3) [Vitamin D] 1,000 unit PO DAILY #30 tablet Metoprolol [Lopressor] 25 mg PO BID Acetaminophen [Extra Strength Non-Aspirin] 500 mg PO Q6H PRN PRN Reason: Pain Buspirone HCl [Buspar] 15 mg PO BID Guaifenesin [Cough Syrup] 100 mg PO Q6H PRN PRN Reason: Cough Calcium Carbonate [Tums] 1,000 mg PO Q4HR PRN PRN Reason: Indigestion Guaifenesin [Mucinex] 600 mg PO Q12H Omeprazole [PriLOSEC] 20 mg PO DAILY Discontinued Loperamide HCl [Anti-Diarrheal] 2 mg PO Q6H PRN PRN Reason: Diarrhea Home Medications: Escitalopram [Lexapro] 10 mg PO DAILY 12/30/17 [History] Cetirizine HCl [24Hour Allergy] 10 mg PO DAILY 09/14/18 [History] Levothyroxine Sodium [Tirosint] 25 mcg PO QAM 09/14/18 [History] Meloxicam [Mobic] 15 mg PO DAILY 09/14/18 [History] hydrOXYzine HCl [Hydroxyzine HCl] 25 mg PO TID PRN 12/07/18 [History] Fluticasone Propionate Nasal [Flonase] 1 spr NS DAILY 12/08/18 [History] Mirtazapine 7.5 mg PO HS 12/08/18 [History] Trazodone HCl 50 mg PO HS 12/08/18 [History] Albuterol Sulfate [Proventil Inhaler] 2 puff IH Q4H PRN 01/17/19 [History] Ipratropium/Albuterol Sulfate [Combivent Respimat 20-100 Mcg] 1 puff IH Q6H PRN 01/17/19 [History] Tizanidine HCl 2 mg PO Q8H PRN 01/17/19 [History] amLODIPine [Norvasc] 5 mg PO DAILY #30 tablet 01/23/19 [Rx] Albuterol Neb [Proventil Neb] 2.5 mg IH Q4H PRN 02/10/19 [History] Fluticasone/Umeclidin/Vilanter [Trelegy Ellipta 100-62.5-25] 1 puff PO DAILY 02/10/19 [History] Cholecalciferol (D-3) [Vitamin D] 1,000 unit PO DAILY #30 tablet 02/14/19 [Rx] Ferrous Sulfate 325 mg PO BIDWM #60 tablet 02/14/19 [Rx] Magnesium Oxide [Mag-Ox] 400 mg PO TID #90 tablet 02/14/19 [Rx] Acetaminophen [Extra Strength Non-Aspirin] 500 mg PO Q6H PRN 03/04/19 [History] Buspirone HCl [Buspar] 15 mg PO BID 03/04/19 [History] Guaifenesin [Cough Syrup] 100 mg PO Q6H PRN 03/04/19 [History] Metoprolol [Lopressor] 25 mg PO BID 03/04/19 [History] Calcium Carbonate [Tums] 1,000 mg PO Q4HR PRN 04/04/19 [History] Guaifenesin [Mucinex] 600 mg PO Q12H 04/18/19 [History] Omeprazole [PriLOSEC] 20 mg PO DAILY 04/18/19 [History] LORazepam [Ativan] 0.5 mg PO DAILY PRN 4 Days #2 tablet 04/22/19 [Rx] Lactobacillus [Culturelle] 1 each PO BID 30 Days #60 cap.sprink 04/22/19 [Rx] Lidocaine Patch [Lidoderm 5% patch] 1 each TP DAILY 30 Days #30 adh..patch 04/22/19 [Rx] Vancomycin Oral Soln [Firvanq] 125 mg PO QID 5 Days #20 udc 04/22/19 [Rx] Allergies/Adverse Reactions: Allergy/AdvReac Type Severity Reaction Status Date / Time No Known Allergies Allergy Verified 04/18/19 11:11 Date of admission: 04/18/19 09:51 Primary care physician: Terrie Joseph CNP Consults: 04/18/19 12:08 Consult to Nutrition [CONS] Routine Comment: Consulting Provider: NUTRITION Reason for Dietary Consult: MST Score Consult to [employer] Grinder [CONS] Routine Reason for SW Consult: possible home health services at discharge 04/20/19 09:26 Consult to Invasive Line Access Team [CONS] Routine Reason for Consult: IV access; x 5 peripheral IV infiltrated/went bad; Line Type: EPIV Discharging clinician: Princess Daniels - Constitutional Vitals: Temp Pulse Resp BP Pulse Ox 98.0 F 83 17 128/79 95 04/22/19 11:13 04/22/19 11:13 04/22/19 11:13 04/22/19 11:13 04/22/19 11:13 Exam: General: In no acute distress. anxious Respiratory exam: no accessory muscle use. rales at base. Cardiovascular exam: RRR, +S1, +S2. no murmur, gallop, rubs. GI/Abdominal exam: nontender , non-distended, normal bowel sounds, soft, no peritoneal signs. Extremities exam: no pedal edema, pulses palpable in b/l lower extremities. no calf tenderness. Stiff knee. Pain with knee extention. Neurological exam: CN II-XII intact, AO X3, no focal deficits. Skin exam: No skin rash - Patient Status Disposition: Home Health Service Condition: Good - Discharge Instructions Instructions: Clostridium Difficile Infection (DC), Acute Nausea and Vomiting (DC) Follow Up With: Terrie Joseph KNIFE EDGER [Primary Care Provider] - - Diet and Activity Activity: as per physical therapy
--- NOTE | 2019-04-22 11:45 | Physician Discharge Referral ---
Home Health/Hosp Referral Info Transfer to: Home Health - Diagnosis (1) Hepatic steatosis Status: Chronic (2) Hypertension Status: Chronic (3) DVT prophylaxis Status: Acute (4) Chronic respiratory failure with hypoxia Status: Chronic (5) COPD (chronic obstructive pulmonary disease) Status: Chronic (6) Debility Status: Chronic (7) Anemia Status: Chronic (8) Hyponatremia Status: Chronic (9) Chronic low back pain Status: Chronic (10) Hypothyroidism Status: Chronic (11) Severe protein-calorie malnutrition Status: Acute (12) C. difficile colitis Status: Acute (13) GERD (gastroesophageal reflux disease) Status: Chronic (14) Sepsis Status: Acute - Respiratory Orders Smoking Cessation: Smoking cessation has been advised. For more information, call the [place] Tobacco Quit Line at 4-125-SNAH-NOW. - Transfer Medications Prescriptions: LORazepam [Ativan] 0.5 mg PO DAILY PRN 4 Days #2 tablet PRN Reason: Anxiety Lactobacillus [Culturelle] 1 each PO BID 30 Days #60 cap.sprink Vancomycin Oral Soln [Firvanq] 125 mg PO QID 5 Days #20 udc Lidocaine Patch [Lidoderm 5% patch] 1 each TP DAILY 30 Days #30 adh..patch Home Medications: Escitalopram [Lexapro] 10 mg PO DAILY 12/30/17 [History] Cetirizine HCl [24Hour Allergy] 10 mg PO DAILY 09/14/18 [History] Levothyroxine Sodium [Tirosint] 25 mcg PO QAM 09/14/18 [History] Meloxicam [Mobic] 15 mg PO DAILY 09/14/18 [History] hydrOXYzine HCl [Hydroxyzine HCl] 25 mg PO TID PRN 12/07/18 [History] Fluticasone Propionate Nasal [Flonase] 1 spr NS DAILY 12/08/18 [History] Mirtazapine 7.5 mg PO HS 12/08/18 [History] Trazodone HCl 50 mg PO HS 12/08/18 [History] Albuterol Sulfate [Proventil Inhaler] 2 puff IH Q4H PRN 01/17/19 [History] Ipratropium/Albuterol Sulfate [Combivent Respimat 20-100 Mcg] 1 puff IH Q6H PRN 01/17/19 [History] Tizanidine HCl 2 mg PO Q8H PRN 01/17/19 [History] amLODIPine [Norvasc] 5 mg PO DAILY #30 tablet 01/23/19 [Rx] Albuterol Neb [Proventil Neb] 2.5 mg IH Q4H PRN 02/10/19 [History] Fluticasone/Umeclidin/Vilanter [Trelegy Ellipta 100-62.5-25] 1 puff PO DAILY 02/10/19 [History] Cholecalciferol (D-3) [Vitamin D] 1,000 unit PO DAILY #30 tablet 02/14/19 [Rx] Ferrous Sulfate 325 mg PO BIDWM #60 tablet 02/14/19 [Rx] Magnesium Oxide [Mag-Ox] 400 mg PO TID #90 tablet 02/14/19 [Rx] Acetaminophen [Extra Strength Non-Aspirin] 500 mg PO Q6H PRN 03/04/19 [History] Buspirone HCl [Buspar] 15 mg PO BID 03/04/19 [History] Guaifenesin [Cough Syrup] 100 mg PO Q6H PRN 03/04/19 [History] Metoprolol [Lopressor] 25 mg PO BID 03/04/19 [History] Calcium Carbonate [Tums] 1,000 mg PO Q4HR PRN 04/04/19 [History] Guaifenesin [Mucinex] 600 mg PO Q12H 04/18/19 [History] Omeprazole [PriLOSEC] 20 mg PO DAILY 04/18/19 [History] LORazepam [Ativan] 0.5 mg PO DAILY PRN 4 Days #2 tablet 04/22/19 [Rx] Lactobacillus [Culturelle] 1 each PO BID 30 Days #60 cap.sprink 04/22/19 [Rx] Lidocaine Patch [Lidoderm 5% patch] 1 each TP DAILY 30 Days #30 adh..patch 04/22/19 [Rx] Vancomycin Oral Soln [Firvanq] 125 mg PO QID 5 Days #20 udc 04/22/19 [Rx] Allergies/Adverse Reactions: Allergy/AdvReac Type Severity Reaction Status Date / Time No Known Allergies Allergy Verified 04/18/19 11:11 Certification: Further, I certify that my clinical findings support that this patient is homebound (i.e. absences from home require considerable and taxing effort and are for medical reasons or [employer] services or infrequently or short duration when for other reasons) because: Homebound Reason: Patient requires assistance of a person or device to safely leave home Attestation: My signature below is to certify that this patient is under my care and that I, or nurse practitioner, or a physician's catering assistant working with me, has a [id number] encounter with this patient.
== END 2019-04-22 14:38 | disposition home health service (06) | DRG 871 ==
LOC: EMEROOARM 06:53 → 2ANU 06:53 → SUATTDRO 09:51 → 2ANU 10:28
PROVIDERS: ADMIT Student in an Organized Health Care Education/Training Program; ATTEND Internal Medicine

== ENCOUNTER 2019-05-23 15:44 | Inpatient (IN) ==
--- NOTE | 2019-05-23 15:49 | Emergency Department Note ---
Disposition Clinical Impression: Acute exacerbation of chronic obstructive airways disease, Hypokalemia, Hyponatremia Disposition: Admitted As Inpatient Condition: Fair Time of Disposition: 23:55 General Adult HPI - General Stated complaint: pain all over Time Seen by Provider: 05/23/19 15:47 - Related Data Home Medications Medication Instructions Recorded Confirmed Escitalopram [Lexapro] 10 mg PO DAILY 12/30/17 04/18/19 Cetirizine HCl [24Hour Allergy] 10 mg PO DAILY 09/14/18 04/18/19 Levothyroxine Sodium [Tirosint] 25 mcg PO QAM 09/14/18 04/18/19 Meloxicam [Mobic] 15 mg PO DAILY 09/14/18 04/18/19 hydrOXYzine HCl [Hydroxyzine HCl] 25 mg PO TID PRN 12/07/18 04/18/19 Fluticasone Propionate Nasal 1 spr NS DAILY 12/08/18 04/18/19 [Flonase] Mirtazapine 7.5 mg PO HS 12/08/18 04/18/19 Trazodone HCl 50 mg PO HS 12/08/18 04/18/19 Albuterol Sulfate [Proventil 2 puff IH Q4H PRN 01/17/19 04/18/19 Inhaler] Ipratropium/Albuterol Sulfate 1 puff IH Q6H PRN 01/17/19 04/18/19 [Combivent Respimat 20-100 Mcg] Tizanidine HCl 2 mg PO Q8H PRN 01/17/19 04/18/19 Albuterol Neb [Proventil Neb] 2.5 mg IH Q4H PRN 02/10/19 04/18/19 Fluticasone/Umeclidin/Vilanter 1 puff PO DAILY 02/10/19 04/18/19 [Trelegy Ellipta 100-62.5-25] Acetaminophen [Extra Strength 500 mg PO Q6H PRN 03/04/19 04/18/19 Non-Aspirin] Buspirone HCl [Buspar] 15 mg PO BID 03/04/19 04/18/19 Metoprolol [Lopressor] 25 mg PO BID 03/04/19 04/18/19 guaiFENesin [Cough Syrup] 100 mg PO Q6H PRN 03/04/19 04/18/19 Calcium Carbonate [Tums] 1,000 mg PO Q4HR PRN 04/04/19 04/18/19 Guaifenesin [Mucinex] 600 mg PO Q12H 04/18/19 04/18/19 Omeprazole [PriLOSEC] 20 mg PO DAILY 04/18/19 04/18/19 Previous Rx's Medication Instructions Recorded amLODIPine [Norvasc] 5 mg PO DAILY #30 tablet 01/23/19 Cholecalciferol (D-3) [Vitamin D] 1,000 unit PO DAILY #30 tablet 02/14/19 Ferrous Sulfate 325 mg PO BIDWM #60 tablet 02/14/19 Magnesium Oxide [Mag-Ox] 400 mg PO TID #90 tablet 02/14/19 LORazepam [Ativan] 0.5 mg PO DAILY PRN 4 Days #2 04/22/19 tablet Lactobacillus [Culturelle] 1 each PO BID 30 Days #60 04/22/19 cap.sprink Lidocaine Patch [Lidoderm 5% patch] 1 each TP DAILY 30 Days #30 04/22/19 adh..patch Vancomycin Oral Soln [Firvanq] 125 mg PO QID 5 Days #20 udc 04/22/19 Allergies Allergy/AdvReac Type Severity Reaction Status Date / Time No Known Allergies Allergy Verified 04/18/19 11:11 Past Medical History - Past Medical History Medical history: Reports: COPD, GERD, hypertension, liver disease, thyroid disease, TIA, other Surgical history: Reports: other Psychiatric history: Reports: anxiety, depression - Social History Smoking Status: Current every day smoker Smokeless Tobacco Status: No Alcohol use: Reports: heavy, recent Drug use: Reports: none Course Vital Signs Temperature 98.1 F 05/23/19 15:49 Pulse Rate 88 05/23/19 15:49 Respiratory Rate 23 05/23/19 15:49 Blood Pressure 97/77 05/23/19 15:49 O2 Sat by Pulse Oximetry 95 05/23/19 15:49 Temperature 97.2 F L 05/23/19 21:48 Pulse Rate 109 05/23/19 21:48 Respiratory Rate 16 05/23/19 21:48 Blood Pressure 116/70 05/23/19 21:48 O2 Sat by Pulse Oximetry 90 05/23/19 21:48 Oxygen Delivery Oxygen Delivery Room Air Medical Decision Making - Lab Data Result diagrams: 05/23/19 17:16 05/23/19 17:16 Lab Results 05/23/19 05/23/19 05/23/19 Range/Units 17:16 17:16 17:16 WBC 10.9 (4.3-11.1) K/mcL RBC 3.97 (3.82-4.97) M/mcL Hgb 11.7 (11.5-15.4) g/dL Hct 35.0 L (35.3-44.9) % MCV 88.2 (83.0-100.0) fL MCH 29.5 (28.0-33.3) pg MCHC 33.4 (31.6-35.5) g/dL RDW 19.8 H (11.5-14.5) % Plt Count TNP MPV 10.2 (9.4-12.4) fL Immature Gran % 0.3 (0-4) % Seg Neutrophils % 76.5 % Lymphocytes % 14.4 % Monocytes % 5.8 % Eosinophils % 2.2 % Basophils % 0.8 % Neutrophils # 8.3 (1.6-8.9) K/mcL Lymphocytes # 1.6 (0.6-4.6) K/mcL Monocytes # 0.6 (0.0-1.3) K/mcL Eosinophils # 0.2 (0.0-0.6) K/mcL Basophils # 0.1 (0.0-0.2) K/mcL Plt Count ,Citrate (140-400) K/mcL Immature Plt Fraction TNP Sodium 128 L (136-145) mEq/L Potassium 3.0 L (3.5-5.1) mEq/L Chloride 94 L (98-107) mEq/L Carbon Dioxide 24 (23-29) mEq/L BUN 4 L (8-23) mg/dL Creatinine 0.42 L (0.60-1.20) mg/dL Est GFR ( Amer) > 60 (> 60) Est GFR (Non-Af Amer) > 60 (> 60) BUN/Creatinine Ratio 10 (6-26) Glucose 116 H (70-105) mg/dL Calculated Osmolality 264 L (280-300) Lactic Acid 1.4 (0.5-2.2) mmol/L Calcium 8.3 L (8.6-10.3) mg/dL Magnesium 1.3 L (1.6-2.6) mg/dL Troponin I < 0.03 (< 0.04) ng/mL Procalcitonin (0.00-0.15) ng/mL 05/23/19 05/23/19 Range/Units 17:16 17:16 WBC (4.3-11.1) K/mcL RBC (3.82-4.97) M/mcL Hgb (11.5-15.4) g/dL Hct (35.3-44.9) % MCV (83.0-100.0) fL MCH (28.0-33.3) pg MCHC (31.6-35.5) g/dL RDW (11.5-14.5) % Plt Count MPV 8.8 L (9.4-12.4) fL Immature Gran % (0-4) % Seg Neutrophils % % Lymphocytes % % Monocytes % % Eosinophils % % Basophils % % Neutrophils # (1.6-8.9) K/mcL Lymphocytes # (0.6-4.6) K/mcL Monocytes # (0.0-1.3) K/mcL Eosinophils # (0.0-0.6) K/mcL Basophils # (0.0-0.2) K/mcL Plt Count ,Citrate 288 (140-400) K/mcL Immature Plt Fraction Sodium (136-145) mEq/L Potassium (3.5-5.1) mEq/L Chloride (98-107) mEq/L Carbon Dioxide (23-29) mEq/L BUN (8-23) mg/dL Creatinine (0.60-1.20) mg/dL Est GFR ( Amer) (> 60) Est GFR (Non-Af Amer) (> 60) BUN/Creatinine Ratio (6-26) Glucose (70-105) mg/dL Calculated Osmolality (280-300) Lactic Acid (0.5-2.2) mmol/L Calcium (8.6-10.3) mg/dL Magnesium (1.6-2.6) mg/dL Troponin I (< 0.04) ng/mL Procalcitonin 8.04 H (0.00-0.15) ng/mL Attestation Statement - Attestation Attestation: I reviewed the residents documentation and agree with the residents assessment and plan of care. I have personally had face to face time with the patient. (Brief History, Brief Exam, and MDM) I personally supervised and was present for the garcia/critical portions of the following procedures completed by the resident: (add procedures performed here). [id number] time provided Patient arrives by EMS from home. She has a history of COPD. She describes generalized malaise. She states "I am trying to catch pneumonia or the flu." I attest to supervising the resident physician's interpretation of the ECG
[2019-05-23] MEDS ORDERED: 0.9 % Sodium Chloride 1,000 ML IVC ONE (15:51)
[2019-05-23] MEDS ORDERED: Ipratropium/Albuterol Neb 3 ML IH ONE (15:51)
[2019-05-23] MEDS ORDERED: methylPREDNISolone 125 MG/2 ML VIAL IVP ONE (15:51)
--- NOTE | 2019-05-23 15:58 | Emergency Department Note ---
Disposition Clinical Impression: Acute exacerbation of chronic obstructive airways disease, Hypokalemia, Hyponatremia Disposition: Admitted As Inpatient Condition: Fair Referrals: Terrie Joseph, [employer] [Primary Care Provider] - Forms: ED Satisfaction Letter Time of Disposition: 18:40 General Adult HPI - General Stated complaint: pain all over Time Seen by Provider: 05/23/19 15:47 Source: patient, EMS Mode of arrival: EMS Limitations: no limitations Nursing Notes Reviewed: Yes Vital Signs Reviewed: Yes - History of Present Illness HPI Narrative: Patient is a 59-year-old female presenting with dyspnea. Patient with known history of COPD, hypertension. Patient not on oxygen at home. The past 2 weeks she has been having increasing shortness of breath with change in cough and sputum production. Symptoms are worse with any type of exertion. She has been using her albuterol inhaler without relief. She has not been using her nebulizer as prescribed. She is also been having generalized body aches with fatigue, subjective fevers and chills, she did take her temperature and stated that it was "98-99 degrees ". She has felt warmer than usual. This morning, patient became very nauseous and had an episode of vomiting, she denies any abdominal pain she has not had any nausea since. She denies any new medications, antibiotics or change in food. No similar sick symptoms in the family. She does live with a significant other in a residence. She denies chest pain, leg swelling. - Related Data Home Medications Medication Instructions Recorded Confirmed Escitalopram [Lexapro] 10 mg PO DAILY 12/30/17 04/18/19 Cetirizine HCl [24Hour Allergy] 10 mg PO DAILY 09/14/18 04/18/19 Levothyroxine Sodium [Tirosint] 25 mcg PO QAM 09/14/18 04/18/19 Meloxicam [Mobic] 15 mg PO DAILY 09/14/18 04/18/19 hydrOXYzine HCl [Hydroxyzine HCl] 25 mg PO TID PRN 12/07/18 04/18/19 Fluticasone Propionate Nasal 1 spr NS DAILY 12/08/18 04/18/19 [Flonase] Mirtazapine 7.5 mg PO HS 12/08/18 04/18/19 Trazodone HCl 50 mg PO HS 12/08/18 04/18/19 Albuterol Sulfate [Proventil 2 puff IH Q4H PRN 01/17/19 04/18/19 Inhaler] Ipratropium/Albuterol Sulfate 1 puff IH Q6H PRN 01/17/19 04/18/19 [Combivent Respimat 20-100 Mcg] Tizanidine HCl 2 mg PO Q8H PRN 01/17/19 04/18/19 Albuterol Neb [Proventil Neb] 2.5 mg IH Q4H PRN 02/10/19 04/18/19 Fluticasone/Umeclidin/Vilanter 1 puff PO DAILY 02/10/19 04/18/19 [Trelegy Ellipta 100-62.5-25] Acetaminophen [Extra Strength 500 mg PO Q6H PRN 03/04/19 04/18/19 Non-Aspirin] Buspirone HCl [Buspar] 15 mg PO BID 03/04/19 04/18/19 Metoprolol [Lopressor] 25 mg PO BID 03/04/19 04/18/19 guaiFENesin [Cough Syrup] 100 mg PO Q6H PRN 03/04/19 04/18/19 Calcium Carbonate [Tums] 1,000 mg PO Q4HR PRN 04/04/19 04/18/19 Guaifenesin [Mucinex] 600 mg PO Q12H 04/18/19 04/18/19 Omeprazole [PriLOSEC] 20 mg PO DAILY 04/18/19 04/18/19 Previous Rx's Medication Instructions Recorded amLODIPine [Norvasc] 5 mg PO DAILY #30 tablet 01/23/19 Cholecalciferol (D-3) [Vitamin D] 1,000 unit PO DAILY #30 tablet 02/14/19 Ferrous Sulfate 325 mg PO BIDWM #60 tablet 02/14/19 Magnesium Oxide [Mag-Ox] 400 mg PO TID #90 tablet 02/14/19 LORazepam [Ativan] 0.5 mg PO DAILY PRN 4 Days #2 04/22/19 tablet Lactobacillus [Culturelle] 1 each PO BID 30 Days #60 04/22/19 cap.sprink Lidocaine Patch [Lidoderm 5% patch] 1 each TP DAILY 30 Days #30 04/22/19 adh..patch Vancomycin Oral Soln [Firvanq] 125 mg PO QID 5 Days #20 [facility] [place] Allergies Allergy/AdvReac Type Severity Reaction Status Date / Time No Known Allergies Allergy Verified 04/18/19 11:11 All systems ED: reviewed and negative except as stated. Review of Systems: As Per HPI Constitutional: Reports: fever, chills, weakness ENT ED: Reports: congestion Cardiovascular: Reports: dyspnea on exertion. Denies: chest pain, palpitations, edema, syncope Respiratory: Reports: cough, dyspnea, wheezes, sputum production. Denies: hemoptysis Gastrointestinal: Reports: nausea, vomiting. Denies: abdominal pain, diarrhea, hematemesis, melena, hematochezia Genitourinary: Denies: dysuria Musculoskeletal: Denies: back pain Integumentary: Denies: rash Neurological: Reports: weakness. Denies: headache, numbness, paresthesias, confusion, abnormal gait, vertigo Endocrine: Reports: fatigue Past Medical History - Past Medical History Medical history: Reports: COPD, GERD, hypertension, liver disease, thyroid disease, TIA, other Surgical history: Reports: other Psychiatric history: Reports: anxiety, depression - Social History Smoking Status: Current every day smoker Smokeless Tobacco Status: No Alcohol use: Reports: heavy, recent Drug use: Reports: none Physical Exam - General Limitations: no limitations General appearance: alert, in no apparent distress - Head Head exam: atraumatic, normocephalic - Eye Eye exam: Present: normal appearance - ENT ENT exam: mucous membranes dry - Neck Neck exam: Present: normal inspection - Chest Chest inspection: Present: normal inspection, symmetric chest wall rise - Respiratory Respiratory exam: Present: prolonged expiratory phase (With scattered wheezing and rhonchi throughout, no Rales patient not on oxygen, no conversational dyspnea.). Absent: accessory muscle use - Cardiovascular Cardiovascular exam: Present: normal rhythm, tachycardia - Abdominal Exam Abdominal exam: Present: soft, Non-Tender. Absent: tenderness, distention, guarding, rebound, rigidity - Extremities Exam Extremities exam: Present: normal inspection, full ROM. Absent: tenderness, pedal edema - Expanded Lower Extremity Exam Neurovascular/Tendon exam: Absent: pulse deficit, motor deficit, sensory deficit - Neurological Exam Neurological exam: Present: alert, oriented X3 - Psychiatric Psychiatric exam: Present: normal affect, normal mood - Skin Skin exam: Present: warm, dry, intact, normal color. Absent: diaphoresis, pallor Course Vital Signs Temperature 98.1 F 05/23/19 15:49 Pulse Rate 88 05/23/19 15:49 Respiratory Rate 23 05/23/19 15:49 Blood Pressure 97/77 05/23/19 15:49 O2 Sat by Pulse Oximetry 95 05/23/19 15:49 Temperature 98.1 F 05/23/19 15:49 Pulse Rate 104 05/23/19 17:27 Respiratory Rate 19 05/23/19 17:27 Blood Pressure 117/76 05/23/19 16:02 O2 Sat by Pulse Oximetry 95 05/23/19 17:27 Oxygen Delivery Oxygen Delivery Room Air Medical Decision Making - MDM Narrative Medical decision making narrative: Patient is a 59-year-old female who is presenting with COPD exacerbation. On arrival, patient is slightly conversationally dyspneic, she does not wear oxygen at home. Patient has an history of COPD, hypertension. Initial concern for COPD exacerbation versus pneumonia, basic laboratory work was performed as well as a pro-calcitonin. Chest x-ray shows no focal opacification or consolidation. CBC shows no leukocytosis. Patient is afebrile on arrival. Patient will receive 1 L normal saline. Patient was given DuoNeb 3 as well as Solu-Medrol. Patient was shown to be slightly hyponatremic and hypokalemic. Potassium was replaced with 40 mEq here in the ED. Pro-calcitonin was elevated, patient has had increased sputum production and change in cough, she states she has had subjective fever and chills at home. With this reason, patient will be given one dose of Rocephin as well as azithromycin. I discussed the findings with the patient, she states at this point in time to breathing treatment did slightly improve her breathing but she still feels significantly short of breath. I do feel as though this would be appropriate for admission at this point in time. Patient agrees. - Medical Records Medical records reviewed: Yes I reviewed the patient's medical records. - Lab Data Lab results reviewed: Yes I reviewed the patient's lab results. Result diagrams: 05/23/19 17:16 05/23/19 17:16 Lab Results 05/23/19 05/23/19 05/23/19 Range/Units 17:16 17:16 17:16 WBC 10.9 (4.3-11.1) K/mcL RBC 3.97 (3.82-4.97) M/mcL Hgb 11.7 (11.5-15.4) g/dL Hct 35.0 L (35.3-44.9) % MCV 88.2 (83.0-100.0) fL MCH 29.5 (28.0-33.3) pg MCHC 33.4 (31.6-35.5) g/dL RDW 19.8 H (11.5-14.5) % Plt Count TNP MPV 10.2 (9.4-12.4) fL Immature Gran % 0.3 (0-4) % Seg Neutrophils % 76.5 % Lymphocytes % 14.4 % Monocytes % 5.8 % Eosinophils % 2.2 % Basophils % 0.8 % Neutrophils # 8.3 (1.6-8.9) K/mcL Lymphocytes # 1.6 (0.6-4.6) K/mcL Monocytes # 0.6 (0.0-1.3) K/mcL Eosinophils # 0.2 (0.0-0.6) K/mcL Basophils # 0.1 (0.0-0.2) K/mcL Plt Count ,Citrate (140-400) K/mcL Immature Plt Fraction TNP Sodium 128 L (136-145) mEq/L Potassium 3.0 L (3.5-5.1) mEq/L Chloride 94 L (98-107) mEq/L Carbon Dioxide 24 (23-29) mEq/L BUN 4 L (8-23) mg/dL Creatinine 0.42 L (0.60-1.20) mg/dL Est GFR ( Amer) > 60 (> 60) Est GFR (Non-Af Amer) > 60 (> 60) BUN/Creatinine Ratio 10 (6-26) Glucose 116 H (70-105) mg/dL Calculated Osmolality 264 L (280-300) Lactic Acid 1.4 (0.5-2.2) mmol/L Calcium 8.3 L (8.6-10.3) mg/dL Magnesium 1.3 L (1.6-2.6) mg/dL Troponin I < 0.03 (< 0.04) ng/mL Procalcitonin (0.00-0.15) ng/mL 05/23/19 05/23/19 Range/Units 17:16 17:16 WBC (4.3-11.1) K/mcL RBC (3.82-4.97) M/mcL Hgb (11.5-15.4) g/dL Hct (35.3-44.9) % MCV (83.0-100.0) fL MCH (28.0-33.3) pg MCHC (31.6-35.5) g/dL RDW (11.5-14.5) % Plt Count MPV 8.8 L (9.4-12.4) fL Immature Gran % (0-4) % Seg Neutrophils % % Lymphocytes % % Monocytes % % Eosinophils % % Basophils % % Neutrophils # (1.6-8.9) K/mcL Lymphocytes # (0.6-4.6) K/mcL Monocytes # (0.0-1.3) K/mcL Eosinophils # (0.0-0.6) K/mcL Basophils # (0.0-0.2) K/mcL Plt Count ,Citrate 288 (140-400) K/mcL Immature Plt Fraction Sodium (136-145) mEq/L Potassium (3.5-5.1) mEq/L Chloride (98-107) mEq/L Carbon Dioxide (23-29) mEq/L BUN (8-23) mg/dL Creatinine (0.60-1.20) mg/dL Est GFR ( Amer) (> 60) Est GFR (Non-Af Amer) (> 60) BUN/Creatinine Ratio (6-26) Glucose (70-105) mg/dL Calculated Osmolality (280-300) Lactic Acid (0.5-2.2) mmol/L Calcium (8.6-10.3) mg/dL Magnesium (1.6-2.6) mg/dL Troponin I (< 0.04) ng/mL Procalcitonin 8.04 H (0.00-0.15) ng/mL - Radiology Data Radiology results reviewed: Yes I reviewed the patient's radiology results. Chest X-Ray 05/23/19 15:51 IMPRESSION: 1. No active pulmonary disease. D/ / Benitez Mtz MD / Benitez Mtz MD Interpreting Provider: Benitez Mtz MD - EKG Data EKG #1 EKG attestation: Yes I reviewed and interpreted this EKG. EKG results narrative: EKG performed at 15/54 ventricular rate of 92, regular rhythm, normal axis, no ST segment elevation, depression or T-wave changes.
[2019-05-23 17:32] LABS: Basophils # 0.1 K/mcL (0.0-0.2); Basophils % 0.8 %; Eosinophils # 0.2 K/mcL (0.0-0.6); Eosinophils % 2.2 %; Hemoglobin 11.7 g/dL (11.5-15.4); Immature Granulocytes % 0.3 % (0-4); Lymphocytes # 1.6 K/mcL (0.6-4.6); Lymphocytes % 14.4 %; Mean Corpuscular HGB Conc 33.4 g/dL (31.6-35.5); Mean Corpuscular Hemoglobin 29.5 pg (28.0-33.3); Mean Corpuscular Volume 88.2 fL (83.0-100.0); Mean Platelet Volume 10.2 fL (9.4-12.4); Monocytes # 0.6 K/mcL (0.0-1.3); Monocytes % 5.8 %; Neutrophils # 8.3 K/mcL (1.6-8.9); Red Blood Count 3.97 M/mcL (3.82-4.97); Red Cell Distribution Width 19.8 % (11.5-14.5); Segmented Neutrophils % 76.5 %; White Blood Count 10.9 K/mcL (4.3-11.1)
[2019-05-23 17:53] LABS: Mean Platelet Volume 8.8 fL (9.4-12.4)
[2019-05-23 17:54] LABS: BUN/Creatinine Ratio 10 (6-26); Blood Urea Nitrogen 4 mg/dL (8-23); Calcium 8.3 mg/dL (8.6-10.3); Carbon Dioxide 24 mEq/L (23-29); Chloride 94 mEq/L (98-107); Glucose 116 mg/dL (70-105); Osmolality,Calculated 264 (280-300); Sodium 128 mEq/L (136-145); Troponin I < 0.03 ng/mL (< 0.04); eGFR For African Americans > 60 (> 60); eGFR For Non-African Americans > 60 (> 60)
[2019-05-23] MEDS ORDERED: Potassium Chloride Elixir 20 MEQ/15 ML UDC PO ONE (18:04)
[2019-05-23] MEDS ORDERED: Azithromycin 500 MG in 0.9 % Sodium Chloride 250 ML IVPB ONE (18:08)
[2019-05-23] MEDS ORDERED: cefTRIAXone 1,000 MG in Water for inj. (sterile) 10 ML IVP ONE (18:08)
[2019-05-23 18:35] LABS: Magnesium 1.3 mg/dL (1.6-2.6)
[2019-05-23] MEDS ORDERED: Ondansetron 4 MG/2 ML VIAL IVP ONE (19:35)
--- NOTE | 2019-05-23 19:39 | Internal Med History&Physical ---
<Elke Connors Darrel - Last Filed: 05/24/19 06:41> Date of Encounter: 05/24/19 Time of Encounter: 22:30 Internal Medicine - H&P: HPI Chief complaint: Shortness of breath History of present illness: Ms. Rodriguez is a 59 year old female with PMH of COPD and current smoker of 2PPD who presents with increased shortness of breath since last week. Patient states for about one week she has had a "cold in her chest" with increased coughing, tightness in her chest, light green sputum production and wheezing. Patient states that recently she has also had decreased appetite that has resulted in weight loss of about 10 lbs. She admits to nausea and non bloody non bilious emesis that increases when she has bouts of coughing. Patient states that on day of admission to hospital her home health nurse came over to take her vitals when she had an episode of coughing and during this episode patient has chest pain, back pain, stomach pain and had an episode of non-bloody non bilious emesis. Patient states the pain today was a burning pain all over her body that began when she was coughing and she felt terrible. This occurred once more after the nurse left her home which prompted a call for EMS. Patient states she has felt warm recently although has not taken her temperature and has broken out into cold sweats. Patient also admits to bouts of loose stools that began on day of admission. WHen asked if she has taken her COPD medication for her SOB prior to arrival to the ED she states no, as she does not believe the ones at home help with her SOB. She does have home O2 but does not use that either. Patient states the home O2 makes her nauseas. Patient has been admitted for COPD excerbation, dehydration, and hyponatremia. Past Med Surg Social Fam HX - Past Medical History Medical history: COPD, GERD, hypertension, liver disease, thyroid disease, TIA, other Additional medical history: depression, back pain, chest pain, headache Psychiatric history: anxiety, depression - Past Surgical History Surgical History: other Additional surgical history: D&C - Social History Smoking Status: Current every day smoker Smokeless Tobacco Status: No Alcohol use: heavy, recent Drug use: none - Family History Brother Adopted: No Living Status: Hx Family Cancer: Yes (Lung) Mother Family Member Ethnicity: Non- Living Status: Hx Family Cardiac Disorders: No Hx Family Respiratory Disorders: Yes (asthma) Hx Family Cancer: Yes (breast) Internal Medicine - H&P: Meds Escitalopram [Lexapro] 10 mg PO DAILY 12/30/17 [History] Cetirizine HCl [24Hour Allergy] 10 mg PO DAILY 09/14/18 [History] Levothyroxine Sodium [Tirosint] 25 mcg PO QAM 09/14/18 [History] Meloxicam [Mobic] 15 mg PO DAILY 09/14/18 [History] hydrOXYzine HCl [Hydroxyzine HCl] 25 mg PO TID PRN 12/07/18 [History] Fluticasone Propionate Nasal [Flonase] 1 spr NS DAILY 12/08/18 [History] Mirtazapine 7.5 mg PO HS 12/08/18 [History] Trazodone HCl 50 mg PO HS 12/08/18 [History] Albuterol Sulfate [Proventil Inhaler] 2 puff IH Q4H PRN 01/17/19 [History] Ipratropium/Albuterol Sulfate [Combivent Respimat 20-100 Mcg] 1 puff IH Q6H PRN 01/17/19 [History] Tizanidine HCl 2 mg PO Q8H PRN 01/17/19 [History] amLODIPine [Norvasc] 5 mg PO DAILY #30 tablet 01/23/19 [Rx] Albuterol Neb [Proventil Neb] 2.5 mg IH Q4H PRN 02/10/19 [History] Fluticasone/Umeclidin/Vilanter [Trelegy Ellipta 100-62.5-25] 1 puff PO DAILY 02/10/19 [History] Cholecalciferol (D-3) [Vitamin D] 1,000 unit PO DAILY #30 tablet 02/14/19 [Rx] Ferrous Sulfate 325 mg PO BIDWM #60 tablet 02/14/19 [Rx] Magnesium Oxide [Mag-Ox] 400 mg PO TID #90 tablet 02/14/19 [Rx] Acetaminophen [Extra Strength Non-Aspirin] 500 mg PO Q6H PRN 03/04/19 [History] Buspirone HCl [Buspar] 15 mg PO BID 03/04/19 [History] Metoprolol [Lopressor] 25 mg PO BID 03/04/19 [History] guaiFENesin [Cough Syrup] 100 mg PO Q6H PRN 03/04/19 [History] Calcium Carbonate [Tums] 1,000 mg PO Q4HR PRN 04/04/19 [History] Guaifenesin [Mucinex] 600 mg PO Q12H 04/18/19 [History] Omeprazole [PriLOSEC] 20 mg PO DAILY 04/18/19 [History] LORazepam [Ativan] 0.5 mg PO DAILY PRN 4 Days #2 tablet 04/22/19 [Rx] Lactobacillus [Culturelle] 1 each PO BID 30 Days #60 cap.sprink 04/22/19 [Rx] Lidocaine Patch [Lidoderm 5% patch] 1 each TP DAILY 30 Days #30 adh..patch 04/22/19 [Rx] Vancomycin Oral Soln [Firvanq] 125 mg PO QID 5 Days #20 [facility] 04/22/19 [Rx] Allergy/AdvReac Type Severity Reaction Status Date / Time No Known Allergies Allergy Verified 04/18/19 11:11 All Systems PM: A 10-system review of systems was performed and is negative for pertinent findings except as documented above in the HPI. Review of systems: Constitutional: admits Fever, Chills, denies Headache, Dizziness Respiratory: admits Shortness of breath, Chronic cough, dyspnea at rest, denies hemoptysis, or Dyspnea at rest Cardiovascular: admits Chest pain, denies Syncope, Peripheral edema , palpitations Gastrointestinal: Denies hematochezia, Abdominal pain, admits nausea, vomiting Genitourinary: admits Painful urination,denies hematuria, urinary retention Endocrine: admits unintentional Significant weight changes Skin: Denies rashes, or unexplained bruising - Constitutional Vitals: Temp Pulse Resp BP Pulse Ox 98.1 F 104 19 117/76 95 05/23/19 15:49 05/23/19 17:27 05/23/19 17:27 05/23/19 16:02 05/23/19 17:27 Exam: Gen: alert/orientedx3, cachectic in appearance and appears older than stated age, no acute distress. Head: atraumatic, normocephalic. ENT: no oropharyngeal erythema, mucous membranes moist. PEARRL, EOMI Neck: No thyromegaly appreciated. Neck supple no cervical lymphadenopathy, mild tenderness to palapation of R cervical paraspinal muscles. Resp: barrel chested, decreased breath sounds bilaterally, no wheezing, but rhonchi heard throughout in all quadrants. large kyphosis in thoracic spine and tender to palpation at T9 spinal process. CV: RRR, Normal S1 and S2. No murmur, gallops, or rubs. GI/Abdominal exam: bowel sounds throughout, flat, soft, non-tender, non- distended; no hepatosplenomegaly Skin: intact; no rashes, lesions, or bruising. Ext: No cyanosis or edema. pulses +2/4 bilaterally UE and LE. Neuro: no focal deficits, cooperative with exam. Internal Med - H&P Results - Labs CBC & Chem 7: 05/24/19 04:06 05/24/19 04:06 Labs: Short CBC 05/23/19 Range/Units 17:16 WBC 10.9 (4.3-11.1) K/mcL Hgb 11.7 (11.5-15.4) g/dL Hct 35.0 L (35.3-44.9) % Plt Count TNP Neutrophils # 8.3 (1.6-8.9) K/mcL BMP 05/23/19 17:16 Sodium 128 L Potassium 3.0 L Chloride 94 L Carbon Dioxide 24 BUN 4 L Creatinine 0.42 L Glucose 116 H Calcium 8.3 L Cardiac Enzymes 05/23/19 Range/Units 17:16 Troponin I < 0.03 (< 0.04) ng/mL - Impressions ITS Impressions Chest X-Ray 05/23/19 15:51 IMPRESSION: 1. No active pulmonary disease. D/ / Benitez Mtz MD / Benitez Mtz MD Interpreting Provider: Benitez Mtz MD - Assessment and Plan (1) Acute exacerbation of chronic obstructive airways disease Current Visit: Yes Status: Acute Assessment and plan: Patient is a 59Y female with PMH of COPD current smoker of 2PPD for 46 yrs. Patient presents to the ED with increased shortness of breath, sputum production, for one week in duration. On arrival to ED patient was in no acute distress, and Afebrile. Physical exam there are decreased breath sounds and rhonchi throughout, although CBC shows white blood cell count of 10.9, chest x- ray is negative for pneumonia. Currently concerns for COPD exacerbation. Plan: - Continuous pulse ox - Duonebs every 4 LORI - Albuterol every 2 when necessary - VBG in a.m. - CBC, CMP, Mg in a.m. (2) COPD (chronic obstructive pulmonary disease) Current Visit: Yes Status: Chronic Assessment and plan: Currently concern for COPD exacerbation due to patient increased sputum production and 1 week history of increased dyspnea. Patient currently has oxygen at home and admits to not using it. Patient also admits to having nebulizer at home and not using it. Plan: - Continue Zithromax - Continue Solu-Medrol taper 40 MG Qualifiers: Qualified Code(s): J44.9 - Chronic obstructive pulmonary disease, unspecified (3) Gastroenteritis Current Visit: Yes Status: Acute Assessment and plan: Patient currently admits to nausea, nonbloody nonbilious vomiting 1 week. In addition to 2 episodes of loose stools without blood. Patient also admits to decreased appetite and weight loss within the last week. Plan; - Current CBC is within normal limits. Will repeat in a.m. - Current CMP shows signs of hyponatremia, hypokalemia , possibly due to episodes of nausea and vomiting. Will repeat in a.m. - Obtain gastro-enteritis panel - Obtain urine sodium - Obtain urine osmolality - Obtain urine creatinine - Obtain serum creatinine (4) Hyponatremia Current Visit: Yes Status: Acute Assessment and plan: Hyponatremia possibly secondary to multiple episodes of nausea and vomiting. Patient currently encourage increased by mouth intake. Plan: - Will recheck CMP in a.m. (5) DVT prophylaxis Current Visit: Yes Status: Acute Assessment and plan: SQ heparin - Time Spent With Patient Total time spent is greater than 50% in coordination of care (as documented) at patient's floor/unit and/or counseling patient: <Yu Leach - Last Filed: 05/24/19 07:08> Date of Encounter: 05/24/19 Internal Medicine - H&P: HPI History of present illness: Ms. Rodriguez is a 59 year old female All Systems PM: A 10-system review of systems was performed and is negative for pertinent findings except as documented above in the HPI. - Constitutional Vitals: Temp Pulse Resp BP Pulse Ox 98.2 F 99 16 122/73 95 05/24/19 03:15 05/24/19 03:15 05/24/19 03:43 05/24/19 03:15 05/24/19 03:43 Internal Med - H&P Results - Labs CBC & Chem 7: 05/24/19 04:06 05/24/19 04:06 Labs: Short CBC 05/23/19 05/24/19 Range/Units 17:16 04:06 WBC 10.9 3.7 L D (4.3-11.1) K/mcL Hgb 11.7 10.8 L (11.5-15.4) g/dL Hct 35.0 L 33.6 L (35.3-44.9) % Plt Count TNP TNP Neutrophils # 8.3 3.5 (1.6-8.9) K/mcL BMP 05/23/19 05/24/19 17:16 04:06 Sodium 128 L 123 L Potassium 3.0 L 5.3 H D Chloride 94 L 96 L Carbon Dioxide 24 16 L BUN 4 L 5 L Creatinine 0.42 L 0.54 L Glucose 116 H 378 H Calcium 8.3 L 7.6 L Cardiac Enzymes 05/23/19 Range/Units 17:16 Troponin I < 0.03 (< 0.04) ng/mL Liver Function 05/24/19 Range/Units 04:06 Total Bilirubin 0.4 (0.3-1.0) mg/dL AST 24 (13-39) Units/L ALT 7 (7-52) Units/L Alkaline Phosphatase 158 H (34-104) Units/L Albumin 2.9 L (3.5-5.7) g/dL Urine 05/24/19 Range/Units 03:15 Urine Color Yellow (Yellow) Urine Clarity Clear (Clear) Urine pH 7.0 (5.0-8.0) pH Units Ur Specific [place] 1.008 L (1.010-1.025) Urine Protein Negative (Neg-Trace) mg/dL Urine Glucose (UA) >=1000 H (Normal) mg/dL - ABG Interpretation ABG results: 05/24/19 04:17 VBG pH 7.38 VBG pCO2 25 L VBG pO2 202 H VBG HCO3 15 L - Impressions ITS Impressions Chest X-Ray 05/23/19 15:51 IMPRESSION: 1. No active pulmonary disease. D/ / Benitez Mtz MD / Benitez Mtz MD Interpreting Provider: Benitez Mtz MD - Time Spent With Patient Total time spent is greater than 50% in coordination of care (as documented) at patient's floor/unit and/or counseling patient: - Attending Attestation Patient seen and examined independently, including review of objective data including labs. I agree with plan of care as documented below by the resident . Face to face encounter at 19:30pm
[2019-05-23] MEDS ORDERED: Naloxone 0.4 MG/ML INJ IVP PRN (21:42)
[2019-05-23] MEDS ORDERED: Albuterol 2.5 MG/3 ML NEBULIZER IH PRN (21:42)
[2019-05-23] MEDS: Ipratropium/Albuterol Neb 3 ML IH SCH (23:50)
[2019-05-24] MEDS ORDERED: *HR* LORazepam 0.5 MG TABLET PO PRN (00:14)
[2019-05-24] MEDS: *HR* LORazepam 0.5 MG TABLET PO PRN ×2 (00:30→21:00)
[2019-05-24] MEDS: MethylPREDNISolone 40 MG/ML VIAL IVP SCH ×4 (00:30→17:09)
[2019-05-24 03:33] LABS: Sodium, Urine 11.8 mEq/L
[2019-05-24 03:42] LABS: Bilirubin,Urine Negative (Negative); Blood,Urine Negative (Negative); Clarity,Urine Clear (Clear); Color,Urine Yellow (Yellow); Glucose,Urine (UA) >=1000 mg/dL (Normal); Ketones,Urine Negative (Negative); Leukocyte Esterase,Urine Negative (Negative); Nitrite,Urine Negative (Negative); Protein,Urine Negative (Neg-Trace); Specific Gravity,Urine 1.008 (1.010-1.025); Urobilinogen,Urine Normal (Normal)
[2019-05-24] MEDS: Ipratropium/Albuterol Neb 3 ML IH SCH ×5 (03:43→20:25)
[2019-05-24 04:25] LABS: VBG HCO3 15 mEq/L (21-27); VBG PCO2 25 mmHg (41-51); VBG PH 7.38 pH Units (7.32-7.42); VBG PO2 202 mmHg (25-50)
[2019-05-24 04:54] LABS: Alanine Aminotransferase 7 Units/L (7-52); Albumin 2.9 g/dL (3.5-5.7); Albumin/Globulin Ratio 0.7 (1.1-2.2); Alkaline Phosphatase 158 Units/L (34-104); Aspartate Amino Transferase 24 Units/L (13-39); BUN/Creatinine Ratio 9 (6-26); Bilirubin,Total 0.4 mg/dL (0.3-1.0); Blood Urea Nitrogen 5 mg/dL (8-23); Calcium 7.6 mg/dL (8.6-10.3); Carbon Dioxide 16 mEq/L (23-29); Chloride 96 mEq/L (98-107); Globulin 3.9 g/dL (2.4-3.5); Glucose 378 mg/dL (70-105); Magnesium 1.2 mg/dL (1.6-2.6); Osmolality,Calculated 269 (280-300); Potassium 5.3 mEq/L (3.5-5.1); Sodium 123 mEq/L (136-145); Total Protein 6.8 g/dL (6.4-8.9); eGFR For African Americans > 60 (> 60); eGFR For Non-African Americans > 60 (> 60)
[2019-05-24 05:02] LABS: Basophils % 0.3 %; Hematocrit 33.6 % (35.3-44.9); Hemoglobin 10.8 g/dL (11.5-15.4); Immature Granulocytes % 0.3 % (0-4); Lymphocytes # 0.2 K/mcL (0.6-4.6); Lymphocytes % 5.4 %; Mean Corpuscular HGB Conc 32.1 g/dL (31.6-35.5); Mean Corpuscular Hemoglobin 28.8 pg (28.0-33.3); Mean Corpuscular Volume 89.6 fL (83.0-100.0); Mean Platelet Volume 10.7 fL (9.4-12.4); Monocytes % 0.8 %; Neutrophils # 3.5 K/mcL (1.6-8.9); Red Blood Count 3.75 M/mcL (3.82-4.97); Red Cell Distribution Width 19.9 % (11.5-14.5); Segmented Neutrophils % 93.2 %; White Blood Count 3.7 K/mcL (4.3-11.1)
[2019-05-24] MEDS: 0.9 % Sodium Chloride 1,000 ML IVC SCH ×2 (06:11→21:00)
[2019-05-24 06:12] LABS: Mean Platelet Volume 8.9 fL (9.4-12.4)
[2019-05-24] MEDS ORDERED: Azithromycin 500 MG in 0.9 % Sodium Chloride 250 ML IVPB SCH (07:00)
[2019-05-24] MEDS: amLODIPine 5 MG TABLET PO SCH (07:59)
[2019-05-24] MEDS ORDERED: Azithromycin 250 MG TABLET PO SCH (09:00)
[2019-05-24] MEDS ORDERED: levoFLOXacin 500 MG TABLET PO SCH (09:00)
[2019-05-24] MEDS ORDERED: Potassium Chloride Elixir 20 MEQ/15 ML UDC PO ONE (09:30)
[2019-05-24] MEDS ORDERED: Magnesium Oxide 400 MG TABLET PO ONE (09:32)
[2019-05-24] MEDS: *HR* OxyCODONE/APAP 5/325 TABLET PO PRN ×2 (11:22→17:21)
[2019-05-24] MEDS: Ondansetron 4 MG/2 ML VIAL IVP PRN ×2 (11:22→18:01)
[2019-05-24 12:29] LABS: BUN/Creatinine Ratio 9 (6-26); Blood Urea Nitrogen 4 mg/dL (8-23); Calcium 7.9 mg/dL (8.6-10.3); Carbon Dioxide 20 mEq/L (23-29); Chloride 94 mEq/L (98-107); Glucose 249 mg/dL (70-105); Magnesium 1.2 mg/dL (1.6-2.6); Osmolality,Calculated 267 (280-300); Potassium 4.5 mEq/L (3.5-5.1); Sodium 126 mEq/L (136-145); eGFR For African Americans > 60 (> 60); eGFR For Non-African Americans > 60 (> 60)
--- NOTE | 2019-05-24 13:05 | Internal Med Progress Note ---
Hospitalist Progress Note - Encounter Date of Encounter: 05/24/19 Time of Encounter: 10:45 - Subjective Interval History: Ms. Rodriguez is a 59 year old female with PMH of HTN, HLD, GERD, COPD, chronic tobacco dependence and chronic hypoxic respiratory failure who has multiple hospitalizations here for COPD exacerbation, now she presented to ER with progr essively worsening shortness of breath, cough with expectoration and weight loss of about 10 lbs. she also complained about feeling nauseated. She was admitted in the hospital and placed on electronic device monitor. She was started on IV steroids and empirical antibiotic. Pt still c/o severe SOB and CHEUNG. She denied any CP. Pt stated she is still smoking 1PPD - Exam Vitals: Temp Pulse Resp BP Pulse Ox 98.9 F 97 16 111/74 93 05/24/19 12:32 05/24/19 12:32 05/24/19 12:32 05/24/19 12:32 05/24/19 12:32 Exam: Gen: Alert, awake, Oriented to time,place and person Chest: Diminished breath sounds B/L, Moderate to severe wheezing, No crackles, No rales Heart: S1S2+ tachycardia, No murmurs Abd: Soft, NT, BS +, No organomegaly Ext: No edema, pulses are palpable, No calf tenderness Neuro : No acute focal neuro deficits noticed Skin: No rash. - Assessment and Plan (1) Acute exacerbation of chronic obstructive airways disease Current Visit: Yes Status: Acute Assessment and Plan: Improving slowly start tapering IV steroids continue empirical antibiotic Rocephin and azithromycin significant bronchodilator therapy continue Symbicort counseled the patient to quit smoking (2) Acute bronchitis Current Visit: No Status: Acute Assessment and Plan: She does have acute purulent bronchitis mostly bacterial continue empirical antibiotic (3) Acute hyponatremia Current Visit: No Status: Chronic Assessment and Plan: Mostly due to dehydration Na @ 123 cont gentle IV hydration cont close monitoring of Na will try to correct 0.5 meq/hr, not more than 8-10 meq/day (4) Gastroenteritis Current Visit: Yes Status: Acute Assessment and Plan: Mostly viral continue symptomatic and supportive care (5) Hypomagnesemia Current Visit: No Status: Acute Assessment and Plan: Could be due to dehydration Continue replacing (6) Sinus tachycardia Current Visit: No Status: Acute Assessment and Plan: Due to respiratory distress continue close monitoring continue home medication metoprolol (7) Intractable nausea and vomiting Current Visit: No Status: Acute Assessment and Plan: Continue symptomatic and supportive care (8) Tobacco dependence Current Visit: No Status: Chronic Assessment and Plan: Counseled to quit smoking placed on nicotine patch - Time Spent with Patient Total time spent is greater than 50% in coordination of care (as documented) at patient's floor/unit and/or counseling patient: Internal Medicine: Result - Labs CBC & Chem 7: 05/24/19 04:06 05/24/19 11:35 Labs: Short CBC 05/23/19 05/24/19 Range/Units 17:16 04:06 WBC 10.9 3.7 L D (4.3-11.1) K/mcL Hgb 11.7 10.8 L (11.5-15.4) g/dL Hct 35.0 L 33.6 L (35.3-44.9) % Plt Count TNP TNP Neutrophils # 8.3 3.5 (1.6-8.9) K/mcL BMP 05/23/19 05/24/19 05/24/19 17:16 04:06 11:35 Sodium 128 L 123 L 126 L Potassium 3.0 L 5.3 H D 4.5 Chloride 94 L 96 L 94 L Carbon Dioxide 24 16 L 20 L BUN 4 L 5 L 4 L Creatinine 0.42 L 0.54 L 0.43 L Glucose 116 H 378 H 249 H Calcium 8.3 L 7.6 L 7.9 L Cardiac Enzymes 05/23/19 Range/Units 17:16 Troponin I < 0.03 (< 0.04) ng/mL Liver Function 05/24/19 Range/Units 04:06 Total Bilirubin 0.4 (0.3-1.0) mg/dL AST 24 (13-39) Units/L ALT 7 (7-52) Units/L Alkaline Phosphatase 158 H (34-104) Units/L Albumin 2.9 L (3.5-5.7) g/dL Urine 05/24/19 Range/Units 03:15 Urine Color Yellow (Yellow) Urine Clarity Clear (Clear) Urine pH 7.0 (5.0-8.0) pH Units Ur Specific [place] 1.008 L (1.010-1.025) Urine Protein Negative (Neg-Trace) mg/dL Urine Glucose (UA) >=1000 H (Normal) mg/dL - Impressions Impressions Chest X-Ray 05/23/19 15:51 IMPRESSION: 1. No active pulmonary disease. D/ / Benitez Mtz MD / Benitez Mtz MD Interpreting Provider: Benitez Mtz MD Consult Discharge Plan - Plan Referrals: Terrie Joseph CNP [Primary Care Provider] - 05/30/19 10:30 am ___ (2) Acute bronchitis Qualifiers: Bronchitis organism: unspecified organism Qualified Code(s): J20.9 - Acute bronchitis, unspecified (7) Intractable nausea and vomiting Qualifiers: Qualified Code(s): R11.2 - Nausea with vomiting, unspecified
--- NOTE | 2019-05-24 15:04 | Electrocardiograph Report ---
[address] [place] [address] Test Date: 2019-05-23 Pat Name: Montserrat Rodriguez Department: [id number] Room: 3B34 Gender: F Rn Advanced: : 1960 Requested By: Sharon Riley Order Number: [id number] Reading MD: Angel Andersen Measurements Intervals [place] Rate: 92 P: 59 LA: 181 QRS: 50 QRSD: 92 T: 35 QT: 373 QTc: 462 Interpretive Statements Sinus rhythm BASELINE ARTIFACT Electronically Signed On 05-24-2019 15:03:23 EDT by Angel Andersen
[2019-05-24] MEDS ORDERED: tiZANidine 4 MG TABLET PO PRN (16:27)
[2019-05-24] MEDS: Azithromycin 500 MG in 0.9 % Sodium Chloride 250 ML IVPB SCH (17:09)
[2019-05-24] MEDS: Budesonide/Formoterol 160/4.5 1 PUFF INH IH SCH (20:25)
[2019-05-24] MEDS: traZODone 50 MG TABLET PO SCH (21:01)
[2019-05-24] MEDS: Mirtazapine 15 MG TABLET PO SCH (21:01)
[2019-05-25] MEDS: MethylPREDNISolone 40 MG/ML VIAL IVP SCH ×4 (00:04→23:51)
[2019-05-25] MEDS: Ipratropium/Albuterol Neb 3 ML IH SCH ×3 (00:37→07:22)
[2019-05-25 06:30] LABS: BUN/Creatinine Ratio 14 (6-26); Blood Urea Nitrogen 5 mg/dL (8-23); Calcium 7.8 mg/dL (8.6-10.3); Carbon Dioxide 26 mEq/L (23-29); Chloride 100 mEq/L (98-107); Glucose 176 mg/dL (70-105); Osmolality,Calculated 276 (280-300); Potassium 3.8 mEq/L (3.5-5.1); Sodium 132 mEq/L (136-145); eGFR For African Americans > 60 (> 60); eGFR For Non-African Americans > 60 (> 60)
[2019-05-25] MEDS: Budesonide/Formoterol 160/4.5 1 PUFF INH IH SCH ×2 (07:32→22:03)
[2019-05-25] MEDS: 0.9 % Sodium Chloride 1,000 ML IVC SCH (08:18)
[2019-05-25] MEDS: Cholecalciferol (D-3) 1,000 UNIT (25MCG) TABLET PO SCH (08:18)
[2019-05-25] MEDS: amLODIPine 5 MG TABLET PO SCH (08:18)
[2019-05-25] MEDS: Loratadine 10 MG TABLET PO SCH (08:18)
[2019-05-25] MEDS: Nicotine 21 MG PATCH.TD24 TD SCH (08:19)
[2019-05-25] MEDS: *HR* OxyCODONE/APAP 5/325 TABLET PO PRN ×2 (08:27→18:22)
[2019-05-25] MEDS: Ondansetron 4 MG/2 ML VIAL IVP PRN (08:39)
[2019-05-25] MEDS ORDERED: Ipratropium/Albuterol Neb 3 ML IH PRN (10:15)
--- NOTE | 2019-05-25 11:22 | Internal Med Progress Note ---
Hospitalist Progress Note - Encounter Date of Encounter: 05/25/19 Time of Encounter: 10:15 - Subjective Interval History: Pt was seen and examined at bed side. Pt stated she is feeling better today.. Currently breathing comfortably on RA She still has cough with expectoration. - Exam Vitals: Temp Pulse Resp BP Pulse Ox 97.8 F 85 17 148/81 91 05/25/19 09:04 05/25/19 09:04 05/25/19 09:04 05/25/19 09:04 05/25/19 09:04 Exam: Gen: Alert, awake, Oriented to time,place and person Chest: Diminished breath sounds B/L, Moderate wheezing, No crackles, No rales Heart: S1S2+ tachycardia, No murmurs Abd: Soft, NT, BS +, No organomegaly Ext: No edema, pulses are palpable, No calf tenderness Neuro : No acute focal neuro deficits noticed Skin: No rash. - Assessment and Plan (1) Acute exacerbation of chronic obstructive airways disease Current Visit: Yes Status: Acute Assessment and Plan: Improving slowly cont tapering IV steroids continue empirical antibiotic Rocephin and azithromycin changed bronchodilator to as needed continue Symbicort counseled the patient to quit smoking (2) Acute bronchitis Current Visit: No Status: Acute Assessment and Plan: She does have acute purulent bronchitis mostly bacterial continue empirical antibiotic (3) Acute hyponatremia Current Visit: No Status: Chronic Assessment and Plan: Mostly due to dehydration Na got corrected slowly as expected rate. today @ 132 d/c IVF cont close monitoring of Na \ (4) Gastroenteritis Current Visit: Yes Status: Acute Assessment and Plan: Mostly viral resolved continue symptomatic and supportive care (5) Hypomagnesemia Current Visit: No Status: Acute Assessment and Plan: Could be due to dehydration Resolved (6) Sinus tachycardia Current Visit: No Status: Acute Assessment and Plan: Due to respiratory distress and dehydration Improved continue close monitoring continue home medication metoprolol (7) Intractable nausea and vomiting Current Visit: No Status: Acute Assessment and Plan: Resolved Continue symptomatic and supportive care (8) Tobacco dependence Current Visit: No Status: Chronic Assessment and Plan: Counseled to quit smoking placed on nicotine patch (9) Severe protein-calorie malnutrition Current Visit: No Status: Acute Assessment and Plan: on Ensure supplements - Time Spent with Patient Total time spent is greater than 50% in coordination of care (as documented) at patient's floor/unit and/or counseling patient: Internal Medicine: Result - Labs CBC & Chem 7: 05/24/19 04:06 05/25/19 05:36 Labs: BMP 05/24/19 05/24/19 05/24/19 11:35 16:45 23:05 Sodium 126 L 125 L 130 L Potassium 4.5 Chloride 94 L Carbon Dioxide 20 L BUN 4 L Creatinine 0.43 L Glucose 249 H Calcium 7.9 L 05/25/19 05:36 Sodium 132 L Potassium 3.8 Chloride 100 Carbon Dioxide 26 BUN 5 L Creatinine 0.37 L Glucose 176 H Calcium 7.8 L Consult Discharge Plan - Plan Referrals: Terrie Joseph, DOROTHEA [Primary Care Provider] - 05/30/19 10:30 am (2) Acute bronchitis Qualifiers: Bronchitis organism: unspecified organism Qualified Code(s): J20.9 - Acute b ronchitis, unspecified (7) Intractable nausea and vomiting Qualifiers: Qualified Code(s): R11.2 - Nausea with vomiting, unspecified
[2019-05-25] MEDS: Azithromycin 500 MG in 0.9 % Sodium Chloride 250 ML IVPB SCH (18:22)
[2019-05-25] MEDS: Mirtazapine 15 MG TABLET PO SCH (20:33)
[2019-05-25] MEDS: traZODone 50 MG TABLET PO SCH (20:34)
--- NOTE | 2019-05-26 00:14 | Event Note ---
Date of Encounter: 05/25/19 Time of Encounter: 22:19 Alerted by patient's nurse JAMARCUS reagan that patient had had 2 loose bowel movements that was asking for Imodium. Nurse reported stool was not liquid but very loose. Patient had received azithromycin for COPD exacerbation. Stat C. difficile panel ordered which returned positive for toxigenic Clostridium difficile DNA by PCR. C. difficile target DNA sequences are detected. Specimen source his feces. Contact precautions ordered. Vancomycin oral solution started 125 mg by mouth 4 times a day. Nurse instructed to continue monitoring the patient closely and alert me immediately of any adverse changes.
[2019-05-26] MEDS: Vancomycin Oral Soln 125 MG/2.5 ML UDC PO SCH ×5 (00:50→20:16)
[2019-05-26 04:29] LABS: BUN/Creatinine Ratio 27 (6-26); Blood Urea Nitrogen 10 mg/dL (8-23); Calcium 7.6 mg/dL (8.6-10.3); Carbon Dioxide 25 mEq/L (23-29); Chloride 94 mEq/L (98-107); Glucose 156 mg/dL (70-105); Magnesium 1.6 mg/dL (1.6-2.6); Osmolality,Calculated 270 (280-300); Potassium 4.2 mEq/L (3.5-5.1); Sodium 129 mEq/L (136-145); eGFR For African Americans > 60 (> 60); eGFR For Non-African Americans > 60 (> 60)
[2019-05-26] MEDS: *HR* OxyCODONE/APAP 5/325 TABLET PO PRN ×3 (07:05→20:16)
[2019-05-26] MEDS: Budesonide/Formoterol 160/4.5 1 PUFF INH IH SCH ×2 (07:50→22:08)
[2019-05-26] MEDS: amLODIPine 5 MG TABLET PO SCH (08:45)
[2019-05-26] MEDS: Cholecalciferol (D-3) 1,000 UNIT (25MCG) TABLET PO SCH (08:45)
[2019-05-26] MEDS: Loratadine 10 MG TABLET PO SCH (08:45)
[2019-05-26] MEDS: MethylPREDNISolone 40 MG/ML VIAL IVP SCH ×2 (08:46→14:54)
[2019-05-26] MEDS: Nicotine 21 MG PATCH.TD24 TD SCH (08:46)
--- NOTE | 2019-05-26 15:29 | Internal Med Progress Note ---
Hospitalist Progress Note - Encounter Date of Encounter: 05/26/19 Time of Encounter: 15:27 - Subjective Interval History: Ms. Rodriguez is a 59 year old female with PMH of HTN, HLD, GERD, COPD, chronic tobacco dependence and chronic hypoxic respiratory failure who has multiple hospitalizations here for COPD exacerbation, now she presented to ER with progr essively worsening shortness of breath, cough with expectoration and weight loss of about 10 lbs. she also complained about feeling nauseated. She was admitted in the hospital and placed on surveillance system monitor. She was started on IV steroids and empirical antibiotic. Her shortness of breath started imp roving slowly. She did have watery diarrhea last night and this morning. Her C. Diff came back as positive. Started her on PO Vancomycin. Pt stated her SOB and CHEUNG are better today. She is breathing comfortably on room air. She does not have any more diarrhea since morning. - Exam Vitals: Temp Pulse Resp BP Pulse Ox 97.9 F 88 18 134/80 93 05/26/19 14:54 05/26/19 14:54 05/26/19 10:42 05/26/19 14:54 05/26/19 14:54 Exam: Gen: Alert, awake, Oriented to time,place and person Chest: Diminished breath sounds B/L, Moderate wheezing, No crackles, No rales Heart: S1S2+ tachycardia, No murmurs Abd: Soft, NT, BS +, No organomegaly Ext: No edema, pulses are palpable, No calf tenderness Neuro : No acute focal neuro deficits noticed Skin: No rash. - Assessment and Plan (1) C. difficile diarrhea Current Visit: Yes Status: Acute Assessment and Plan: Her, C. 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 and non compliance issues with her Vancomycin counseled the pt about importance of taking Vancomycin also will place her on halfway tapering dose of Vancomycin Vancomycin 125 mg orally 4 times daily for 10 to 14 days, then 125 mg orally twice daily for 7 days, then 125 mg orally once daily for 7 days, then 125 mg orally every 2 or 3 days for 2 weeks continue symptomatic and supportive care (2) Acute exacerbation of chronic obstructive airways disease Current Visit: Yes Status: Acute Assessment and Plan: Improving slowly cont tapering IV steroids continue empirical antibiotic Rocephin and azithromycin changed bronchodilator to as needed continue Symbicort counseled the patient to quit smoking (3) Acute bronchitis Current Visit: No Status: Acute Assessment and Plan: She does have acute purulent bronchitis mostly bacterial finished 3 doses IV Azithromycin Due to C. Diff, will d/c abx (4) Acute hyponatremia Current Visit: No Status: Chronic Assessment and Plan: Mostly due to dehydration Na got corrected slowly as expected rate. cont close monitoring of Na Today @ 129 will start her on gentle IVF again due to her diarrhea (5) Hypomagnesemia Current Visit: No Status: Acute Assessment and Plan: Could be due to dehydration Resolved (6) Sinus tachycardia Current Visit: No Status: Acute Assessment and Plan: Due to respiratory distress and dehydration Improved continue close monitoring continue home medication metoprolol (7) Intractable nausea and vomiting Current Visit: No Status: Acute Assessment and Plan: Resolved Continue symptomatic and supportive care (8) Tobacco dependence Current Visit: No Status: Chronic Assessment and Plan: Counseled to quit smoking placed on nicotine patch (9) Severe protein-calorie malnutrition Current Visit: No Status: Acute Assessment and Plan: on Ensure supplements - Time Spent with Patient Total time spent is greater than 50% in coordination of care (as documented) at patient's floor/unit and/or counseling patient: Internal Medicine: Result - Labs CBC & Chem 7: 05/24/19 04:06 05/26/19 03:57 Labs: BMP 05/26/19 03:57 Sodium 129 L Potassium 4.2 Chloride 94 L Carbon Dioxide 25 BUN 10 Creatinine 0.37 L Glucose 156 H Calcium 7.6 L Consult Discharge Plan - Plan Referrals: Terrie Joseph [employer] LEAD [Primary Care Provider] - 05/30/19 10:30 am (3) Acute bronchitis Qualifiers: Bronchitis organism: unspecified organism Qualified Code(s): J20.9 - Acute bronchitis, unspecified (7) Intractable nausea and vomiting Qualifiers: Qualified Code(s): R11.2 - Nausea with vomiting, unspecified
[2019-05-26] MEDS: Mirtazapine 15 MG TABLET PO SCH (20:15)
[2019-05-26] MEDS: traZODone 50 MG TABLET PO SCH (20:16)
[2019-05-27] MEDS: *HR* OxyCODONE/APAP 5/325 TABLET PO PRN ×2 (08:02→16:45)
[2019-05-27] MEDS: amLODIPine 5 MG TABLET PO SCH (08:02)
[2019-05-27] MEDS: Loratadine 10 MG TABLET PO SCH (08:03)
[2019-05-27] MEDS: Cholecalciferol (D-3) 1,000 UNIT (25MCG) TABLET PO SCH (08:03)
[2019-05-27] MEDS: predniSONE 20 MG TABLET PO SCH (08:03)
[2019-05-27] MEDS: Vancomycin Oral Soln 125 MG/2.5 ML UDC PO SCH ×4 (08:04→21:24)
[2019-05-27] MEDS: Nicotine 21 MG PATCH.TD24 TD SCH (08:05)
[2019-05-27 08:41] LABS: Basophils % 0.1 %; Hematocrit 35.6 % (35.3-44.9); Hemoglobin 11.6 g/dL (11.5-15.4); Immature Granulocytes % 0.5 % (0-4); Lymphocytes # 1.1 K/mcL (0.6-4.6); Lymphocytes % 9.7 %; Mean Corpuscular HGB Conc 32.6 g/dL (31.6-35.5); Mean Corpuscular Hemoglobin 29.2 pg (28.0-33.3); Mean Corpuscular Volume 89.7 fL (83.0-100.0); Monocytes # 1.1 K/mcL (0.0-1.3); Monocytes % 9.6 %; Red Blood Count 3.97 M/mcL (3.82-4.97); Red Cell Distribution Width 19.3 % (11.5-14.5); Segmented Neutrophils % 80.1 %; White Blood Count 11.8 K/mcL (4.3-11.1)
[2019-05-27 08:56] LABS: BUN/Creatinine Ratio 43 (6-26); Blood Urea Nitrogen 15 mg/dL (8-23); Calcium 8.3 mg/dL (8.6-10.3); Carbon Dioxide 35 mEq/L (23-29); Chloride 86 mEq/L (98-107); Glucose 79 mg/dL (70-105); Magnesium 1.4 mg/dL (1.6-2.6); Osmolality,Calculated 268 (280-300); Potassium 3.9 mEq/L (3.5-5.1); Sodium 129 mEq/L (136-145); eGFR For African Americans > 60 (> 60); eGFR For Non-African Americans > 60 (> 60)
[2019-05-27 09:15] LABS: Neutrophils # 9.5 K/mcL (1.6-8.9)
[2019-05-27] MEDS: Budesonide/Formoterol 160/4.5 1 PUFF INH IH SCH ×2 (09:47→20:22)
[2019-05-27 09:57] LABS: Mean Platelet Volume 8.4 fL (9.4-12.4)
--- NOTE | 2019-05-27 11:03 | Internal Med Progress Note ---
Hospitalist Progress Note - Encounter Date of Encounter: 05/27/19 Time of Encounter: 11:00 - Subjective Interval History: She was seen and examined at bedside today. Patient was admitted for COPD exacerbation. Patient has a history of COPD and she uses oxygen at home as needed. Patient's hospital course was complicated by her developing diarrhea which was tested positive for C. difficile colitis. Patient is currently getting breathing treatment, steroid, and inhaler for her COPD. Azithromycin was discontinued due to diarrhea. Patient is currently on vancomycin orally for diarrhea. Patient reports that she still feels tight in her chest. She denied any fever and chills this morning. She denied any diarrhea this morning. - Exam Vitals: Temp Pulse Resp BP Pulse Ox 97.9 F 75 16 150/87 98 05/27/19 07:06 05/27/19 07:06 05/27/19 09:48 05/27/19 07:06 05/27/19 09:48 Exam: General: A & O 3, In no acute distress HENNT: PERRLA. Head atraumatic and makes supple CVS S1 and S2 regular, no murmur RS: Mild wheezes bilaterally. Abdomen: Soft and nontender. Bowel sounds normal 4 Extremities: No cyanosis, clubbing, and edema Neurology: Cranial 2 through 12 normal. Motor strength 5/5 bilaterally. Sensation intact - Assessment and Plan (1) C. difficile diarrhea Current Visit: Yes Status: Acute Assessment and Plan: Denied any fever and chills overnight. Patient reports her diarrhea has improved. She denied diarrhea since last night. We will continue vancomycin orally. (2) Acute exacerbation of chronic obstructive airways disease Current Visit: Yes Status: Acute Assessment and Plan: Patient's improving slowly. We will continue steroid therapy and breathing therapy. Patient's antibiotics were discontinued after she developed diarrhea. She did not complain of any fever and chills. Denied any purulent sputum production today. We will continue to hold antibiotic. (3) Acute hyponatremia Current Visit: No Status: Chronic Assessment and Plan: Pertinent treatment. Most likely due to dehydration. Sodium today is 129. We will restart her hydration. (4) Hypomagnesemia Current Visit: No Status: Acute Assessment and Plan: Could be due to dehydration. Mg today 1.4. We will replace today. (5) Tobacco dependence Current Visit: No Status: Chronic Assessment and Plan: Nicotin patch (6) Severe protein-calorie malnutrition Current Visit: No Status: Acute Assessment and Plan: on Ensure supplements - Time Spent with Patient Total time spent is greater than 50% in coordination of care (as documented) at patient's floor/unit and/or counseling patient: 25 - 35 minutes Plan of Care Discussed with: patient Internal Medicine: Result - Labs CBC & Chem 7: 05/27/19 08:17 05/27/19 08:17 Labs: Short CBC 05/27/19 Range/Units 08:17 WBC 11.8 H D (4.3-11.1) K/mcL Hgb 11.6 (11.5-15.4) g/dL Hct 35.6 (35.3-44.9) % Plt Count TNP Neutrophils # 9.5 H (1.6-8.9) K/mcL BMP 05/27/19 08:17 Sodium 129 L Potassium 3.9 Chloride 86 L Carbon Dioxide 35 H BUN 15 Creatinine 0.35 L Glucose 79 Calcium 8.3 L Consult Discharge Plan - Plan Referrals: Terrie Joseph CNP [Primary Care Provider] - 05/30/19 10:30 am
[2019-05-27] MEDS: 0.9 % Sodium Chloride 1,000 ML IVC SCH (12:26)
[2019-05-27] MEDS: Ipratropium/Albuterol Neb 3 ML IH SCH ×3 (15:18→20:22)
[2019-05-27] MEDS: Mirtazapine 15 MG TABLET PO SCH (21:24)
[2019-05-27] MEDS: traZODone 50 MG TABLET PO SCH (21:24)
[2019-05-28] MEDS: Ipratropium/Albuterol Neb 3 ML IH SCH ×5 (00:25→11:09)
[2019-05-28 01:19] LABS: Hematocrit 31.4 % (35.3-44.9); Hemoglobin 10.1 g/dL (11.5-15.4); Immature Granulocytes % 0.4 % (0-4); Lymphocytes # 1.3 K/mcL (0.6-4.6); Lymphocytes % 12.5 %; Mean Corpuscular HGB Conc 32.2 g/dL (31.6-35.5); Mean Corpuscular Hemoglobin 29.2 pg (28.0-33.3); Mean Corpuscular Volume 90.8 fL (83.0-100.0); Mean Platelet Volume 9.8 fL (9.4-12.4); Monocytes % 9.7 %; Neutrophils # 7.8 K/mcL (1.6-8.9); Platelet Count 222 K/mcL (140-400); Red Blood Count 3.46 M/mcL (3.82-4.97); Red Cell Distribution Width 18.9 % (11.5-14.5); Segmented Neutrophils % 77.4 %; White Blood Count 10.1 K/mcL (4.3-11.1)
[2019-05-28 01:38] LABS: BUN/Creatinine Ratio 34 (6-26); Blood Urea Nitrogen 13 mg/dL (8-23); Calcium 7.5 mg/dL (8.6-10.3); Carbon Dioxide 30 mEq/L (23-29); Chloride 92 mEq/L (98-107); Glucose 149 mg/dL (70-105); Magnesium 1.8 mg/dL (1.6-2.6); Osmolality,Calculated 273 (280-300); Potassium 3.6 mEq/L (3.5-5.1); Sodium 130 mEq/L (136-145); eGFR For African Americans > 60 (> 60); eGFR For Non-African Americans > 60 (> 60)
[2019-05-28] MEDS: 0.9 % Sodium Chloride 1,000 ML IVC SCH (02:38)
[2019-05-28] MEDS: *HR* OxyCODONE/APAP 5/325 TABLET PO PRN (04:56)
[2019-05-28 07:35] VITALS: BP 158/97
[2019-05-28] MEDS: Budesonide/Formoterol 160/4.5 1 PUFF INH IH SCH (07:42)
[2019-05-28] MEDS: Cholecalciferol (D-3) 1,000 UNIT (25MCG) TABLET PO SCH (08:23)
[2019-05-28] MEDS: Loratadine 10 MG TABLET PO SCH (08:23)
[2019-05-28] MEDS: predniSONE 20 MG TABLET PO SCH (08:23)
[2019-05-28] MEDS: amLODIPine 5 MG TABLET PO SCH (08:23)
[2019-05-28] MEDS: Vancomycin Oral Soln 125 MG/2.5 ML UDC PO SCH (08:30)
--- NOTE | 2019-05-28 08:32 | Discharge Summary ---
- NOTES TO OUTPATIENT PROVIDER Notes to Outpatient Provider: Pt was admitted for COPD exacerbation. Patient was initially placed on antibiotic, steroid therapy, and breathing treatment. Patient hospital course was complicated by her developing Clostridium difficile colitis and diarrhea. Patient will be discharged on a prison tapering dose of vancomycin. Patient will also be discharged on tapering dose of steroid for her COPD exacerbation. Advised to continue home inhalers. Date of Encounter: 05/28/19 Time of Encounter: 08:30 - Discharge Diagnosis (1) C. difficile diarrhea Priority: Primary Status: Acute (2) Acute exacerbation of chronic obstructive airways disease Priority: Secondary Status: Acute (3) Acute hyponatremia Priority: Secondary Status: Chronic (4) Hypomagnesemia Priority: Secondary Status: Acute (5) Tobacco dependence Priority: Secondary Status: Chronic (6) Severe protein-calorie malnutrition Priority: Secondary Status: Acute Hospital course: Ms. Rodriguez is a 59 year old female was admitted for COPD exacerbation. Patient was initially placed on antibiotic, steroid therapy, and breathing treatment. Patient hospital course was complicated by her developing Clostridium difficile colitis and diarrhea. Patient will be discharged on a intermission coordinator tapering dose of vancomycin. Patient will also be discharged on tapering dose of steroid for her COPD exacerbation. Advised to continue home i nhalers. Advised to use home oxygen as she was using it before at home as needed. Follow-up with primary care provider within one week. Discharge discussed with: patient, nurse Time spent discussing smoking cessation with patient: more than 10 minutes - Time Spent with Patient Total time spent providing and/or coordinating discharge services: 35 Time spent: Greater than 30 minutes - Discharge Medications Prescriptions: New PredniSONE [Deltasone] 10 mg PO DAILY 14 Days #32 tablet Vancomycin Oral Soln [Firvanq] 125 mg PO QID 26 Days #57 udc OxyCODONE/APAP 5/325 [Percocet 5/325 MG] 1 each PO Q6HR PRN 7 Days #28 tablet PRN Reason: Pain Albuterol Sulfate [Proventil Inhaler] 2 puff IH Q2HR PRN #1 inhaler PRN Reason: Shortness Of Breath Budesonide/Formoterol 160/4.5 [Symbicort 160/4.5] 2 puff IH BIDR 30 Days #1 inh Continued Escitalopram [Lexapro] 10 mg PO DAILY Meloxicam [Mobic] 15 mg PO DAILY Cetirizine HCl [24Hour Allergy] 10 mg PO DAILY Mirtazapine 7.5 mg PO HS Trazodone HCl 50 mg PO HS Tizanidine HCl 2 mg PO Q8H PRN PRN Reason: Muscle Spasm amLODIPine [Norvasc] 5 mg PO DAILY #30 tablet Cholecalciferol (D-3) [Vitamin D] 1,000 unit PO DAILY #30 tablet Metoprolol [Lopressor] 25 mg PO BID Buspirone HCl [Buspar] 15 mg PO BID Guaifenesin [Mucinex] 600 mg PO Q12H HydrOXYzine [Atarax] 10 mg PO Q8H Omeprazole [PriLOSEC] 40 mg PO BID Home Medications: Escitalopram [Lexapro] 10 mg PO DAILY 12/30/17 [History] Cetirizine HCl [24Hour Allergy] 10 mg PO DAILY 09/14/18 [History] Meloxicam [Mobic] 15 mg PO DAILY 09/14/18 [History] Mirtazapine 7.5 mg PO HS 12/08/18 [History] Trazodone HCl 50 mg PO HS 12/08/18 [History] Tizanidine HCl 2 mg PO Q8H PRN 01/17/19 [History] amLODIPine [Norvasc] 5 mg PO DAILY #30 tablet 01/23/19 [Rx] Cholecalciferol (D-3) [Vitamin D] 1,000 unit PO DAILY #30 tablet 02/14/19 [Rx] Buspirone HCl [Buspar] 15 mg PO BID 03/04/19 [History] Metoprolol [Lopressor] 25 mg PO BID 03/04/19 [History] Guaifenesin [Mucinex] 600 mg PO Q12H 04/18/19 [History] HydrOXYzine [Atarax] 10 mg PO Q8H 05/24/19 [History] Omeprazole [PriLOSEC] 40 mg PO BID 05/24/19 [History] Albuterol Sulfate [Proventil Inhaler] 2 puff IH Q2HR PRN #1 inhaler 05/28/19 [Rx] Budesonide/Formoterol 160/4.5 [Symbicort 160/4.5] 2 puff IH BIDR 30 Days #1 inh 05/28/19 [Rx] OxyCODONE/APAP 5/325 [Percocet 5/325 MG] 1 each PO Q6HR PRN 7 Days #28 tablet 05/28/19 [Rx] PredniSONE [Deltasone] 10 mg PO DAILY 14 Days #32 tablet 05/28/19 [Rx] Vancomycin Oral Soln [Firvanq] 125 mg PO QID 26 Days #57 udc 05/28/19 [Rx] Allergies/Adverse Reactions: Allergy/AdvReac Type Severity Reaction Status Date / Time No Known Allergies Allergy Verified 05/24/19 16:16 Date of admission: 05/24/19 10:47 Primary care physician: Terrie Joseph CNP Consults: 05/23/19 21:43 Consult to Nurse Navigator [CONS] Routine Comment: 05/23/19 22:14 Consult to Nutrition [CONS] Routine Comment: Consulting Provider: NUTRITION Reason for Dietary Consult: Other 05/23/19 22:33 Consult to Elevator Constructor Supervisor [CONS] Routine Reason for SW Consult: possible needs at discharge for placement, home PT/OT/nursing Discharging clinician: Karthik Daniels - Constitutional Vitals: Temp Pulse Resp BP Pulse Ox 98.2 F 88 16 158/97 95 05/28/19 07:34 05/28/19 07:34 05/28/19 07:44 05/28/19 07:34 05/28/19 07:44 General appearance: Present: cooperative, A&O X 3 Exam: General: A & O 3, In no acute distress HENNT: PERRLA. Head atraumatic and makes supple CVS S1 and S2 regular, no murmur RS: Mild wheezes bilaterally. Abdomen: Soft and nontender. Bowel sounds normal 4 Extremities: No cyanosis, clubbing, and edema Neurology: Cranial 2 through 12 normal. Motor strength 5/5 bilaterally. Sensation intact - Patient Status Disposition: Home, Self-Care Condition: Good Overall status at discharge: patient is progressing back to baseline - Discharge Instructions Follow Up With: Terrie Joseph CNP [Primary Care Provider] - 05/30/19 10:30 am - Diet and Activity Activity: increase activity as tolerated Diet: low salt diet
[2019-05-28] MEDS: Nicotine 21 MG PATCH.TD24 TD SCH (08:41)
== END 2019-05-28 11:25 | disposition home or self-care (01) | DRG 190 ==
LOC: 3BNU 15:44 → EMEROOARM 15:44 → 3BNU 20:45 → SUATTDRO 05-24 10:47 → 3BNU 05-26 05:33
PROVIDERS: ADMIT Internal Medicine; ATTEND Family Medicine

== ENCOUNTER 2019-06-09 10:50 | Inpatient (IN) ==
[2019-06-09] MEDS ORDERED: Ipratropium/Albuterol Neb 3 ML IH ONE (11:08)
--- NOTE | 2019-06-09 11:13 | Emergency Department Note ---
Disposition Clinical Impression: Hyponatremia, Duodenitis Pancreatitis Qualifiers: Chronicity: acute Pancreatitis type: alcohol induced Acute pancreatitis complication: no infection or necrosis Qualified Code(s): K85.20 - Alcohol induced acute pancreatitis without necrosis or infection Alcohol withdrawal Qualifiers: Complication of substance-induced condition: uncomplicated Qualified Code(s): F10.230 - Alcohol dependence with withdrawal, uncomplicated Compression fracture of T6 vertebra Qualifiers: Encounter type: initial encounter Qualified Code(s): S22.050A - Wedge compression fracture of T5-T6 vertebra, initial encounter for closed fracture Disposition: Admitted As Inpatient Condition: Serious Referrals: Terrie Joseph [employer] [Primary Care Provider] - Forms: ED Satisfaction Letter Time of Disposition: 18:19 Fall HPI - General Chief Complaint: ED Fall Stated Complaint: back pain Time Seen by Provider: 06/09/19 11:00 Source: patient, EMS Mode of arrival: EMS Limitations: no limitations Nursing Notes Reviewed: Yes Vital Signs Reviewed: Yes - History of Present Illness HPI Narrative: Patient presents by squad for evaluation of injuries from a fall. She states that she was walking to the kitchen and just fell. She is not sure how it powers ppened. EMS arrived and helped her up. She initially refused transport. Several hours later she called ems to bring her here for eval of back pain. She describes pain from her head to her bottom - on the back side. No reported loss of consciousness. No chest pain or dyspnea. No fever, chills, nausea or vomiting. Pt Subjective Complaint: fall Onset (ago): hour(s) Fall From: standing Fall Witnessed: no Place Fall Occurred: home Loss of Consciousness: none Prolonged Down Time?: no Symptoms Prior to Fall: none Context: unknown Location of injury: back Severity: moderate Quality: dull, aching Associated symptoms (after fall): Reports: headache, neck pain. Denies: numbne ss, weakness, chest pain, shortness of breath, abdominal pain, hematuria, unable to walk, lightheaded, vertigo, confusion - Related Data Home Medications Medication Instructions Recorded Confirmed Escitalopram [Lexapro] 10 mg PO DAILY 12/30/17 05/24/19 Cetirizine HCl [24Hour Allergy] 10 mg PO DAILY 09/14/18 05/24/19 Meloxicam [Mobic] 15 mg PO DAILY 09/14/18 05/24/19 Mirtazapine 7.5 mg PO HS 12/08/18 05/24/19 Trazodone HCl 50 mg PO HS 12/08/18 05/24/19 Tizanidine HCl 2 mg PO Q8H PRN 01/17/19 05/24/19 Buspirone HCl [Buspar] 15 mg PO BID 03/04/19 05/24/19 Metoprolol [Lopressor] 25 mg PO BID 03/04/19 05/24/19 Guaifenesin [Mucinex] 600 mg PO Q12H 04/18/19 05/24/19 HydrOXYzine [Atarax] 10 mg PO Q8H 05/24/19 05/24/19 Omeprazole [PriLOSEC] 40 mg PO BID 05/24/19 05/24/19 Previous Rx's Medication Instructions Recorded amLODIPine [Norvasc] 5 mg PO DAILY #30 tablet 01/23/19 Cholecalciferol (D-3) [Vitamin D] 1,000 unit PO DAILY #30 tablet 02/14/19 Albuterol Sulfate [Proventil 2 puff IH Q2HR PRN #1 inhaler 05/28/19 Inhaler] Budesonide/Formoterol 160/4.5 2 puff IH BIDR 30 Days #1 inh 05/28/19 [Symbicort 160/4.5] OxyCODONE/APAP 5/325 [Percocet 1 each PO Q6HR PRN 7 Days #28 05/28/19 5/325 MG] tablet PredniSONE [Deltasone] 10 mg PO DAILY 14 Days #32 tablet 05/28/19 Vancomycin Oral Soln [Firvanq] 125 mg PO QID 26 Days #57 udc 05/28/19 Allergies Allergy/AdvReac Type Severity Reaction Status Date / Time No Known Allergies Allergy Verified 05/24/19 16:16 Fall PMH - Past Medical History Medical history: Reports: non-contributory, COPD, GERD, hypertension, liver disease, thyroid disease, TIA, other Surgical history: Reports: other Psychiatric history: Reports: anxiety, depression - Social History Smoking Status: Current every day smoker Alcohol use: Reports: heavy, recent Drug use: Reports: none Physical Exam - General Limitations: no limitations General appearance: alert, in no apparent distress Course Vital Signs Temperature 98.0 F 06/09/19 10:55 Pulse Rate 78 06/09/19 10:55 Respiratory Rate 20 06/09/19 10:55 Blood Pressure 111/65 06/09/19 10:55 O2 Sat by Pulse Oximetry 90 06/09/19 10:55 Temperature 98.0 F 06/09/19 10:55 Pulse Rate 78 06/09/19 18:15 Respiratory Rate 16 06/09/19 18:15 Blood Pressure 140/77 06/09/19 18:15 O2 Sat by Pulse Oximetry 99 06/09/19 18:15 Oxygen Delivery Oxygen Delivery Nasal Cannula Fall - Medical Records Medical records reviewed: Yes I reviewed the patient's medical records. - Lab Data Lab results reviewed: Yes I reviewed the patient's lab results. Lab results narrative: Laboratory Last Values WBC 19.6 K/mcL (4.3-11.1) H 06/09/19 11:15 RBC 3.92 M/mcL (3.82-4.97) 06/09/19 11:15 Hgb 11.6 g/dL (11.5-15.4) 06/09/19 11:15 Hct 32.9 % (35.3-44.9) L 06/09/19 11:15 MCV 83.9 fL (83.0-100.0) D 06/09/19 11:15 MCH 29.6 pg (28.0-33.3) 06/09/19 11:15 MCHC 35.3 g/dL (31.6-35.5) 06/09/19 11:15 RDW 17.9 % (11.5-14.5) H 06/09/19 11:15 Plt Count 279 K/mcL (140-400) 06/09/19 11:15 MPV 9.8 fL (9.4-12.4) 06/09/19 11:15 Immature Gran % 0.7 % (0-4) 06/09/19 11:15 Seg Neutrophils % 88.4 % 06/09/19 11:15 Lymphocytes % 6.8 % 06/09/19 11:15 Monocytes % 3.7 % 06/09/19 11:15 Eosinophils % 0.3 % 06/09/19 11:15 Basophils % 0.1 % 06/09/19 11:15 Neutrophils # 17.4 K/mcL (1.6-8.9) H 06/09/19 11:15 Lymphocytes # 1.3 K/mcL (0.6-4.6) 06/09/19 11:15 Monocytes # 0.7 K/mcL (0.0-1.3) 06/09/19 11:15 Eosinophils # 0.1 K/mcL (0.0-0.6) 06/09/19 11:15 Basophils # 0.0 K/mcL (0.0-0.2) 06/09/19 11:15 PT 19.3 Seconds (9.4-12.1) H 06/09/19 14:29 INR 1.7 06/09/19 14:29 APTT 38.2 Seconds (26.0-36.0) H 06/09/19 14:29 Sodium 123 mEq/L (136-145) L 06/09/19 11:15 Potassium 3.3 mEq/L (3.5-5.1) L 06/09/19 11:15 Chloride 92 mEq/L (98-107) L 06/09/19 11:15 Carbon Dioxide 28 mEq/L (23-29) 06/09/19 11:15 BUN 23 mg/dL (8-23) 06/09/19 11:15 Creatinine 0.47 mg/dL (0.60-1.20) L 06/09/19 11:15 Est GFR ( Amer) > 60 (> 60) 06/09/19 11:15 Est GFR (Non-Af Amer) > 60 (> 60) 06/09/19 11:15 BUN/Creatinine Ratio 49 (6-26) H 06/09/19 11:15 Glucose 132 mg/dL (70-105) H 06/09/19 11:15 Calculated Osmolality 262 (280-300) L 06/09/19 11:15 Calcium 7.4 mg/dL (8.6-10.3) L 06/09/19 11:15 Phosphorus 2.6 mg/dL (2.7-4.5) L 06/09/19 11:15 Magnesium 1.6 mg/dL (1.6-2.6) 06/09/19 11:15 Total Bilirubin 1.4 mg/dL (0.3-1.0) H 06/09/19 11:15 AST 868 Units/L (13-39) H 06/09/19 11:15 ALT 407 Units/L (7-52) H 06/09/19 11:15 Alkaline Phosphatase 380 Units/L (34-104) H 06/09/19 11:15 Serum Total Protein 4.6 g/dL (6.4-8.9) L 06/09/19 11:15 Albumin 2.6 g/dL (3.5-5.7) L 06/09/19 11:15 Globulin 2.0 g/dL (2.4-3.5) L 06/09/19 11:15 Albumin/Globulin Ratio 1.3 (1.1-2.2) 06/09/19 11:15 Lipase 127 Units/L (11-82) H 06/09/19 11:15 Urine Color Yellow (Yellow) 06/09/19 15:50 Urine Clarity Cloudy (Clear) A 06/09/19 15:50 Urine pH 5.5 pH Units (5.0-8.0) 06/09/19 15:50 Ur Specific [place] 1.022 (1.010-1.025) 06/09/19 15:50 Urine Protein Negative mg/dL (Neg-Trace) 06/09/19 15:50 Urine Glucose (UA) Normal mg/dL (Normal) 06/09/19 15:50 Urine Ketones Negative mg/dL (Negative) 06/09/19 15:50 Urine Blood Negative (Negative) 06/09/19 15:50 Urine Nitrite Negative (Negative) 06/09/19 15:50 Urine Bilirubin Negative (Negative) 06/09/19 15:50 Urine Urobilinogen Normal mg/dL (Normal) 06/09/19 15:50 Ur Leukocyte Esterase Moderate (Negative) H 06/09/19 15:50 Urine Microscopic WBC 15-30 per hpf (0-3) H 06/09/19 15:50 Ur Renal Epithelial Cell Few per hpf (None-Few) 06/09/19 15:50 Urine Bacteria Moderate per hpf (None-Few) H 06/09/19 15:50 Ur Culture Indicated? YES (NO) A 06/09/19 15:50 Ethyl Alcohol 58 mg/dL (Less than 10) H 06/09/19 11:15 Result diagrams: 06/09/19 11:15 06/09/19 11:15 Lab Results 06/09/19 06/09/19 06/09/19 Range/Units 11:15 11:15 14:29 WBC 19.6 H (4.3-11.1) K/mcL RBC 3.92 (3.82-4.97) M/mcL Hgb 11.6 (11.5-15.4) g/dL Hct 32.9 L (35.3-44.9) % MCV 83.9 D (83.0-100.0) fL MCH 29.6 (28.0-33.3) pg MCHC 35.3 (31.6-35.5) g/dL RDW 17.9 H (11.5-14.5) % Plt Count 279 (140-400) K/mcL MPV 9.8 (9.4-12.4) fL Immature Gran % 0.7 (0-4) % Seg Neutrophils % 88.4 % Lymphocytes % 6.8 % Monocytes % 3.7 % Eosinophils % 0.3 % Basophils % 0.1 % Neutrophils # 17.4 H (1.6-8.9) K/mcL Lymphocytes # 1.3 (0.6-4.6) K/mcL Monocytes # 0.7 (0.0-1.3) K/mcL Eosinophils # 0.1 (0.0-0.6) K/mcL Basophils # 0.0 (0.0-0.2) K/mcL PT 19.3 H (9.4-12.1) Seconds INR 1.7 APTT 38.2 H (26.0-36.0) Seconds Sodium 123 L (136-145) mEq/L Potassium 3.3 L (3.5-5.1) mEq/L Chloride 92 L (98-107) mEq/L Carbon Dioxide 28 (23-29) mEq/L BUN 23 (8-23) mg/dL Creatinine 0.47 L (0.60-1.20) mg/dL Est GFR ( Amer) > 60 (> 60) Est GFR (Non-Af Amer) > 60 (> 60) BUN/Creatinine Ratio 49 H (6-26) Glucose 132 H (70-105) mg/dL Calculated Osmolality 262 L (280-300) Calcium 7.4 L (8.6-10.3) mg/dL Phosphorus 2.6 L (2.7-4.5) mg/dL Magnesium 1.6 (1.6-2.6) mg/dL Total Bilirubin 1.4 H (0.3-1.0) mg/dL AST 868 H (13-39) Units/L ALT 407 H (7-52) Units/L Alkaline Phosphatase 380 H (34-104) Units/L Serum Total Protein 4.6 L (6.4-8.9) g/dL Albumin 2.6 L (3.5-5.7) g/dL Globulin 2.0 L (2.4-3.5) g/dL Albumin/Globulin Ratio 1.3 (1.1-2.2) Lipase 127 H (11-82) Units/L Urine Color (Yellow) Urine Clarity (Clear) Urine pH (5.0-8.0) pH Units Ur Specific [place] (1.010-1.025) Urine Protein (Neg-Trace) mg/dL Urine Glucose (UA) (Normal) mg/dL Urine Ketones (Negative) mg/dL Urine Blood (Negative) Urine Nitrite (Negative) Urine Bilirubin (Negative) Urine Urobilinogen (Normal) mg/dL Ur Leukocyte Esterase (Negative) Urine Microscopic WBC (0-3) per hpf Ur Renal Epithelial Cell (None-Few) per hpf Urine Bacteria (None-Few) per hpf Ur Culture Indicated? (NO) Ethyl Alcohol 58 H (Less than 10) mg/dL 06/09/19 Range/Units 15:50 WBC (4.3-11.1) K/mcL RBC (3.82-4.97) M/mcL Hgb (11.5-15.4) g/dL Hct (35.3-44.9) % MCV (83.0-100.0) fL MCH (28.0-33.3) pg MCHC (31.6-35.5) g/dL RDW (11.5-14.5) % Plt Count (140-400) K/mcL MPV (9.4-12.4) fL Immature Gran % (0-4) % Seg Neutrophils % % Lymphocytes % % Monocytes % % Eosinophils % % Basophils % % Neutrophils # (1.6-8.9) K/mcL Lymphocytes # (0.6-4.6) K/mcL Monocytes # (0.0-1.3) K/mcL Eosinophils # (0.0-0.6) K/mcL Basophils # (0.0-0.2) K/mcL PT (9.4-12.1) Seconds INR APTT (26.0-36.0) Seconds Sodium (136-145) mEq/L Potassium (3.5-5.1) mEq/L Chloride (98-107) mEq/L Carbon Dioxide (23-29) mEq/L BUN (8-23) mg/dL Creatinine (0.60-1.20) mg/dL Est GFR ( Amer) (> 60) Est GFR (Non-Af Amer) (> 60) BUN/Creatinine Ratio (6-26) Glucose (70-105) mg/dL Calculated Osmolality (280-300) Calcium (8.6-10.3) mg/dL Phosphorus (2.7-4.5) mg/dL Magnesium (1.6-2.6) mg/dL Total Bilirubin (0.3-1.0) mg/dL AST (13-39) Units/L ALT (7-52) Units/L Alkaline Phosphatase (34-104) Units/L Serum Total Protein (6.4-8.9) g/dL Albumin (3.5-5.7) g/dL Globulin (2.4-3.5) g/dL Albumin/Globulin Ratio (1.1-2.2) Lipase (11-82) Units/L Urine Color Yellow (Yellow) Urine Clarity Cloudy A (Clear) Urine pH 5.5 (5.0-8.0) pH Units Ur Specific [place] 1.022 (1.010-1.025) Urine Protein Negative (Neg-Trace) mg/dL Urine Glucose (UA) Normal (Normal) mg/dL Urine Ketones Negative (Negative) mg/dL Urine Blood Negative (Negative) Urine Nitrite Negative (Negative) Urine Bilirubin Negative (Negative) Urine Urobilinogen Normal (Normal) mg/dL Ur Leukocyte Esterase Moderate H (Negative) Urine Microscopic WBC 15-30 H (0-3) per hpf Ur Renal Epithelial Cell Few (None-Few) per hpf Urine Bacteria Moderate H (None-Few) per hpf Ur Culture Indicated? YES A (NO) Ethyl Alcohol (Less than 10) mg/dL - Radiology Data Radiology results reviewed: Yes I reviewed the patient's radiology results. Chest X-Ray 06/09/19 11:48 IMPRESSION: 1. No acute cardiopulmonary disease. 2. COPD. D/ / 06/09/2019 11:51:52 Yulisa Meehan MD / shira Interpreting Provider: Yulisa Meehan MD Cervical Spine CT 06/09/19 14:33 IMPRESSION: No acute intracranial abnormality. Degenerative changes. No acute abnormality in the cervical spine. Acute to subacute compression fracture at the superior endplate of T6, with 25% height loss, new since March 03, 2019. Chronic compression deformities of T11 and T12, stable. No evidence of acute traumatic injury of the lumbar spine. Mild to moderate spinal canal narrowing at T11-12, secondary to retropulsion of posterior cortex of T12, stable. Increased interstitial lung markings, likely related to chronic lung changes. Superimposed inflammatory changes cannot be excluded. D/ / Dave Michaud MD / Dave Michaud MD Interpreting Provider: Dave Michaud MD Head CT 06/09/19 14:33 IMPRESSION: No acute intracranial abnormality. Degenerative changes. No acute abnormality in the cervical spine. Acute to subacute compression fracture at the superior endplate of T6, with 25% height loss, new since March 03, 2019. Chronic compression deformities of T11 and T12, stable. No evidence of acute traumatic injury of the lumbar spine. Mild to moderate spinal canal narrowing at T11-12, secondary to retropulsion of posterior cortex of T12, stable. Increased interstitial lung markings, likely related to chronic lung changes. Superimposed inflammatory changes cannot be excluded. D/ / Dave Michaud MD / Dave Michaud MD Interpreting Provider: Dave Michaud MD Lumbar Spine CT 06/09/19 14:33 IMPRESSION: No acute intracranial abnormality. Degenerative changes. No acute abnormality in the cervical spine. Acute to subacute compression fracture at the superior endplate of T6, with 25% height loss, new since March 03, 2019. Chronic compression deformities of T11 and T12, stable. No evidence of acute traumatic injury of the lumbar spine. Mild to moderate spinal canal narrowing at T11-12, secondary to retropulsion of posterior cortex of T12, stable. Increased interstitial lung markings, likely related to chronic lung changes. Superimposed inflammatory changes cannot be excluded. D/ / Dave Michaud MD / Dave Michaud MD Interpreting Provider: Dave Michaud MD Thoracic Spine CT 06/09/19 14:33 IMPRESSION: No acute intracranial abnormality. Degenerative changes. No acute abnormality in the cervical spine. Acute to subacute compression fracture at the superior endplate of T6, with 25% height loss, new since March 03, 2019. Chronic compression deformities of T11 and T12, stable. No evidence of acute traumatic injury of the lumbar spine. Mild to moderate spinal canal narrowing at T11-12, secondary to retropulsion of posterior cortex of T12, stable. Increased interstitial lung markings, likely related to chronic lung changes. Superimposed inflammatory changes cannot be excluded. D/ / Dave Michaud MD / Dave Michadu MD Interpreting Provider: Dave Michaud MD Abdomen/Pelvis CT 06/09/19 17:15 IMPRESSION: There is fat stranding within the anterior pararenal space, which is most likely secondary to duodenitis, with mural thickening of the 2nd and 3rd portions of the duodenum. Again, definite ulceration is not visualized, but that can be difficult to see with CT technique. There is some fat stranding adjacent to the pancreas which is probably related to the duodenitis, but correlate with any laboratory evidence of pancreatitis. The pancolitis seen previously for the most part has resolved, but there is mild residual mural thickening involving the ascending colon. There is new, prominent subcutaneous fat stranding in the left flank, along with dermal thickening. Correlate with clinical evidence of cellulitis or soft tissue contusion. D/ / Roderick Diaz MD / Roderick Diaz MD Interpreting Provider: Roderick Diaz MD Attestation Statement - Attestation Attestation: I, Willie Javier DO have provided [id number] time during the care of this patient. Detailed review the presentation, symptoms, medical history were discussed and reviewed with the advanced practice provider Irma Royal PA-C/S[employer] ANALYST. Medical intervention labs and imaging studies were reviewed in detail. See full documentation of physical exam and course of care in the advanced practice provider's note. I agree with the determined course of care, medical intervention and disposition put forth by the advanced practice provider. See below documentation for changes or alterations in documentation.
[2019-06-09 11:33] LABS: Basophils % 0.1 %; Eosinophils # 0.1 K/mcL (0.0-0.6); Eosinophils % 0.3 %; Hematocrit 32.9 % (35.3-44.9); Hemoglobin 11.6 g/dL (11.5-15.4); Immature Granulocytes % 0.7 % (0-4); Lymphocytes # 1.3 K/mcL (0.6-4.6); Lymphocytes % 6.8 %; Mean Corpuscular HGB Conc 35.3 g/dL (31.6-35.5); Mean Corpuscular Hemoglobin 29.6 pg (28.0-33.3); Mean Platelet Volume 9.8 fL (9.4-12.4); Monocytes # 0.7 K/mcL (0.0-1.3); Monocytes % 3.7 %; Neutrophils # 17.4 K/mcL (1.6-8.9); Platelet Count 279 K/mcL (140-400); Red Blood Count 3.92 M/mcL (3.82-4.97); Red Cell Distribution Width 17.9 % (11.5-14.5); Segmented Neutrophils % 88.4 %; White Blood Count 19.6 K/mcL (4.3-11.1)
[2019-06-09 11:52] LABS: Alanine Aminotransferase 407 Units/L (7-52); Albumin 2.6 g/dL (3.5-5.7); Albumin/Globulin Ratio 1.3 (1.1-2.2); Alkaline Phosphatase 380 Units/L (34-104); Aspartate Amino Transferase 868 Units/L (13-39); BUN/Creatinine Ratio 49 (6-26); Bilirubin,Total 1.4 mg/dL (0.3-1.0); Blood Urea Nitrogen 23 mg/dL (8-23); Calcium 7.4 mg/dL (8.6-10.3); Carbon Dioxide 28 mEq/L (23-29); Chloride 92 mEq/L (98-107); Ethanol 58 mg/dL (Less than 10); Glucose 132 mg/dL (70-105); Osmolality,Calculated 262 (280-300); Potassium 3.3 mEq/L (3.5-5.1); Sodium 123 mEq/L (136-145); Total Protein 4.6 g/dL (6.4-8.9); eGFR For African Americans > 60 (> 60); eGFR For Non-African Americans > 60 (> 60)
[2019-06-09 11:55] LABS: Mean Corpuscular Volume 83.9 fL (83.0-100.0)
[2019-06-09] MEDS ORDERED: *HR* HYDROcodone/Acet 5/325 mg TABLET PO ONE (13:16)
[2019-06-09 13:50] LABS: Magnesium 1.6 mg/dL (1.6-2.6); Phosphorous 2.6 mg/dL (2.7-4.5)
[2019-06-09 13:53] LABS: Lipase 127 Units/L (11-82)
[2019-06-09 15:33] LABS: INR 1.7; Prothrombin Time 19.3 Seconds (9.4-12.1)
[2019-06-09 15:35] LABS: Activated Partial Thrombo Time 38.2 Seconds (26.0-36.0)
[2019-06-09 16:09] LABS: Bilirubin,Urine Negative (Negative); Blood,Urine Negative (Negative); Clarity,Urine Cloudy (Clear); Color,Urine Yellow (Yellow); Glucose,Urine (UA) Normal (Normal); Ketones,Urine Negative (Negative); Leukocyte Esterase,Urine Moderate (Negative); Nitrite,Urine Negative (Negative); PH,Urine 5.5 pH Units (5.0-8.0); Protein,Urine Negative (Neg-Trace); Specific Gravity,Urine 1.022 (1.010-1.025); Urobilinogen,Urine Normal (Normal)
[2019-06-09 16:18] LABS: Bacteria,Urine Moderate per hpf (None-Few); Renal Epithelial Cells,Urine Few per hpf (None-Few); WBC,Urine 15-30 per hpf (0-3)
--- NOTE | 2019-06-09 16:20 | Emergency Department Note ---
Disposition Clinical Impression: Hyponatremia, Duodenitis Pancreatitis Qualifiers: Chronicity: acute Pancreatitis type: alcohol induced Acute pancreatitis complication: no infection or necrosis Qualified Code(s): K85.20 - Alcohol induced acute pancreatitis without necrosis or infection Alcohol withdrawal Qualifiers: Complication of substance-induced condition: uncomplicated Qualified Code(s): F10.230 - Alcohol dependence with withdrawal, uncomplicated Disposition: Admitted As Inpatient Condition: Fair Referrals: Terrie Joseph REFUGE WORKER [Primary Care Provider] - Forms: ED Satisfaction Letter Time of Disposition: 18:55 General Adult HPI - General Chief complaint: ED Fall Stated complaint: back pain Time Seen by Provider: 06/09/19 11:00 Source: patient, EMS Limitations: no limitations - History of Present Illness Pain Scale: 10 - Related Data Home Medications Medication Instructions Recorded Confirmed Escitalopram [Lexapro] 10 mg PO DAILY 12/30/17 05/24/19 Cetirizine HCl [24Hour Allergy] 10 mg PO DAILY 09/14/18 05/24/19 Meloxicam [Mobic] 15 mg PO DAILY 09/14/18 05/24/19 Mirtazapine 7.5 mg PO HS 12/08/18 05/24/19 Trazodone HCl 50 mg PO HS 12/08/18 05/24/19 Tizanidine HCl 2 mg PO Q8H PRN 01/17/19 05/24/19 Buspirone HCl [Buspar] 15 mg PO BID 03/04/19 05/24/19 Metoprolol [Lopressor] 25 mg PO BID 03/04/19 05/24/19 Guaifenesin [Mucinex] 600 mg PO Q12H 04/18/19 05/24/19 HydrOXYzine [Atarax] 10 mg PO Q8H 05/24/19 05/24/19 Omeprazole [PriLOSEC] 40 mg PO BID 05/24/19 05/24/19 Previous Rx's Medication Instructions Recorded amLODIPine [Norvasc] 5 mg PO DAILY #30 tablet 01/23/19 Cholecalciferol (D-3) [Vitamin D] 1,000 unit PO DAILY #30 tablet 02/14/19 Albuterol Sulfate [Proventil 2 puff IH Q2HR PRN #1 inhaler 05/28/19 Inhaler] Budesonide/Formoterol 160/4.5 2 puff IH BIDR 30 Days #1 inh 05/28/19 [Symbicort 160/4.5] OxyCODONE/APAP 5/325 [Percocet 1 each PO Q6HR PRN 7 Days #28 05/28/19 5/325 MG] tablet PredniSONE [Deltasone] 10 mg PO DAILY 14 Days #32 tablet 05/28/19 Vancomycin Oral Soln [Firvanq] 125 mg PO QID 26 Days #57 udc 05/28/19 Allergies Allergy/AdvReac Type Severity Reaction Status Date / Time No Known Allergies Allergy Verified 05/24/19 16:16 Past Medical History - Past Medical History Medical history: Reports: non-contributory, COPD, GERD, hypertension, liver d isease, thyroid disease, TIA, other Surgical history: Reports: other Psychiatric history: Reports: anxiety, depression - Social History Smoking Status: Current every day smoker Smokeless Tobacco Status: No Alcohol use: Reports: heavy, recent Drug use: Reports: none Physical Exam - General Limitations: no limitations General appearance: alert, in no apparent distress Course Vital Signs Temperature 98.0 F 06/09/19 10:55 Pulse Rate 78 06/09/19 10:55 Respiratory Rate 20 06/09/19 10:55 Blood Pressure 111/65 06/09/19 10:55 O2 Sat by Pulse Oximetry 90 06/09/19 10:55 Temperature 98.0 F 06/09/19 10:55 Pulse Rate 78 06/09/19 18:15 Respiratory Rate 16 06/09/19 18:15 Blood Pressure 140/77 06/09/19 18:15 O2 Sat by Pulse Oximetry 99 06/09/19 18:15 Oxygen Delivery Oxygen Delivery Nasal Cannula Medical Decision Making - Lab Data Result diagrams: 06/09/19 11:15 06/09/19 11:15 Lab Results 06/09/19 06/09/19 06/09/19 Range/Units 11:15 11:15 14:29 WBC 19.6 H (4.3-11.1) K/mcL RBC 3.92 (3.82-4.97) M/mcL Hgb 11.6 (11.5-15.4) g/dL Hct 32.9 L (35.3-44.9) % MCV 83.9 D (83.0-100.0) fL MCH 29.6 (28.0-33.3) pg MCHC 35.3 (31.6-35.5) g/dL RDW 17.9 H (11.5-14.5) % Plt Count 279 (140-400) K/mcL MPV 9.8 (9.4-12.4) fL Immature Gran % 0.7 (0-4) % Seg Neutrophils % 88.4 % Lymphocytes % 6.8 % Monocytes % 3.7 % Eosinophils % 0.3 % Basophils % 0.1 % Neutrophils # 17.4 H (1.6-8.9) K/mcL Lymphocytes # 1.3 (0.6-4.6) K/mcL Monocytes # 0.7 (0.0-1.3) K/mcL Eosinophils # 0.1 (0.0-0.6) K/mcL Basophils # 0.0 (0.0-0.2) K/mcL PT 19.3 H (9.4-12.1) Seconds INR 1.7 APTT 38.2 H (26.0-36.0) Seconds Sodium 123 L (136-145) mEq/L Potassium 3.3 L (3.5-5.1) mEq/L Chloride 92 L (98-107) mEq/L Carbon Dioxide 28 (23-29) mEq/L BUN 23 (8-23) mg/dL Creatinine 0.47 L (0.60-1.20) mg/dL Est GFR ( Amer) > 60 (> 60) Est GFR (Non-Af Amer) > 60 (> 60) BUN/Creatinine Ratio 49 H (6-26) Glucose 132 H (70-105) mg/dL Calculated Osmolality 262 L (280-300) Calcium 7.4 L (8.6-10.3) mg/dL Phosphorus 2.6 L (2.7-4.5) mg/dL Magnesium 1.6 (1.6-2.6) mg/dL Total Bilirubin 1.4 H (0.3-1.0) mg/dL AST 868 H (13-39) Units/L ALT 407 H (7-52) Units/L Alkaline Phosphatase 380 H (34-104) Units/L Serum Total Protein 4.6 L (6.4-8.9) g/dL Albumin 2.6 L (3.5-5.7) g/dL Globulin 2.0 L (2.4-3.5) g/dL Albumin/Globulin Ratio 1.3 (1.1-2.2) Lipase 127 H (11-82) Units/L Urine Color (Yellow) Urine Clarity (Clear) Urine pH (5.0-8.0) pH Units Ur Specific [place] (1.010-1.025) Urine Protein (Neg-Trace) mg/dL Urine Glucose (UA) (Normal) mg/dL Urine Ketones (Negative) mg/dL Urine Blood (Negative) Urine Nitrite (Negative) Urine Bilirubin (Negative) Urine Urobilinogen (Normal) mg/dL Ur Leukocyte Esterase (Negative) Urine Microscopic WBC (0-3) per hpf Ur Renal Epithelial Cell (None-Few) per hpf Urine Bacteria (None-Few) per hpf Ur Culture Indicated? (NO) Ethyl Alcohol 58 H (Less than 10) mg/dL 06/09/19 Range/Units 15:50 WBC (4.3-11.1) K/mcL RBC (3.82-4.97) M/mcL Hgb (11.5-15.4) g/dL Hct (35.3-44.9) % MCV (83.0-100.0) fL MCH (28.0-33.3) pg MCHC (31.6-35.5) g/dL RDW (11.5-14.5) % Plt Count (140-400) K/mcL MPV (9.4-12.4) fL Immature Gran % (0-4) % Seg Neutrophils % % Lymphocytes % % Monocytes % % Eosinophils % % Basophils % % Neutrophils # (1.6-8.9) K/mcL Lymphocytes # (0.6-4.6) K/mcL Monocytes # (0.0-1.3) K/mcL Eosinophils # (0.0-0.6) K/mcL Basophils # (0.0-0.2) K/mcL PT (9.4-12.1) Seconds INR APTT (26.0-36.0) Seconds Sodium (136-145) mEq/L Potassium (3.5-5.1) mEq/L Chloride (98-107) mEq/L Carbon Dioxide (23-29) mEq/L BUN (8-23) mg/dL Creatinine (0.60-1.20) mg/dL Est GFR ( Amer) (> 60) Est GFR (Non-Af Amer) (> 60) BUN/Creatinine Ratio (6-26) Glucose (70-105) mg/dL Calculated Osmolality (280-300) Calcium (8.6-10.3) mg/dL Phosphorus (2.7-4.5) mg/dL Magnesium (1.6-2.6) mg/dL Total Bilirubin (0.3-1.0) mg/dL AST (13-39) Units/L ALT (7-52) Units/L Alkaline Phosphatase (34-104) Units/L Serum Total Protein (6.4-8.9) g/dL Albumin (3.5-5.7) g/dL Globulin (2.4-3.5) g/dL Albumin/Globulin Ratio (1.1-2.2) Lipase (11-82) Units/L Urine Color Yellow (Yellow) Urine Clarity Cloudy A (Clear) Urine pH 5.5 (5.0-8.0) pH Units Ur Specific [place] 1.022 (1.010-1.025) Urine Protein Negative (Neg-Trace) mg/dL Urine Glucose (UA) Normal (Normal) mg/dL Urine Ketones Negative (Negative) mg/dL Urine Blood Negative (Negative) Urine Nitrite Negative (Negative) Urine Bilirubin Negative (Negative) Urine Urobilinogen Normal (Normal) mg/dL Ur Leukocyte Esterase Moderate H (Negative) Urine Microscopic WBC 15-30 H (0-3) per hpf Ur Renal Epithelial Cell Few (None-Few) per hpf Urine Bacteria Moderate H (None-Few) per hpf Ur Culture Indicated? YES A (NO) Ethyl Alcohol (Less than 10) mg/dL Attestation Statement - Attestation Attestation: I, Willie Javier DO have provided [id number] time during the care of this patient. Detailed review the presentation, symptoms, medical history were discussed and reviewed with the advanced practice provider Irma Royal PA-C/COMMUNICATION [employer]ILLS INSTRUCTOR. Medical intervention labs and imaging studies were reviewed in detail. See full documentation of physical exam and course of care in the advanced practice provider's note. I agree with the determined course of care, medical intervention and disposition put forth by the advanced practice provider. See below documentation for changes or alterations in documentation. 59-year-old female presents to the emergency room for a described fall home. She does have a history of multiple medical issues including hypertension COPD emphysema continued smoking and alcohol abuse. Patient is otherwise describing persistent pain in her back. She was initially evaluated by EMS and deferred a transported that time and is now accommodating transport patient arrived to the emergency room and had no acute signs of trauma injury to the head. The transverse provider started the workup including CT imaging the head cervical spine labs including CBC chemistry showed severe function testing urinalysis and lipase. Patient has not been able to provide us a urinalysis here. Lipase is elevated and she does have derangements in her liver function testing and her bilirubin. Patient had CT imaging completed of the head cervical thoracic and lumbar spine along with a noncontrast scan of the abdomen. Disposition will most likely be admission secondary to the fall syncope alcohol abuse and multiple lab derangements at this time. Patient is otherwise advised the described presentation recommendations this point. Fluids nausea medication pain medication will be given. Physical exam is otherwise unremarkable showing well-appearing female who is answering questions appropriately. She has appeared to have understanding of her medical condition and understands appropriate medical decision-making. No other acute issues noted this point. Patient is otherwise stable. She will be monitored in emergency room until disposition is determined. EKG was reviewed by myself documented by the advanced practice provider. See detailed documentation of the physical exam, medical intervention, medical decision-making disposition in the advanced practice provider's note. No critical care by the patient's treatment course at this time. He does have elevated white blood cell count of unknown etiology. This could be margination secondary to her drinking. Sodium is also most likely secondary to drinking. Elevated liver function testing bilirubin are new presentation will be addressed with CT imaging and then possible admission. [id number] Patient had a contaminated urine that was initially treated with Rocephin. CT imaging the abdomen does not show any other new acute findings outside of inflammation around the duodenum. There is concern for duodenitis. Flagyl was added on for anaerobic coverage. Patient is otherwise been stable here in the emergency department. Lactic acid was also added on during the time of admiss ion. This will be followed up on the floor. Patient has not had any chest pain or other symptoms. Her vital signs remain stable and she is afebrile. Patient does not have any acute signs of abdominal peritonitis or compartment syndrome. She does not have any pain out of proportion to exam in his low clinical suspicion for ischemic bowel. Patient was discussed with the hospitalist Dr. rasheed. No other concerns or issues at this time. Patient will be admitted for further management and care. Patient be monitored here in the emergency Department of the admission process is completed.
[2019-06-09] MEDS ORDERED: cefTRIAXone 1,000 MG in 0.9 % Sodium Chloride Mini Bag 100 ML IVPB ONE (16:39)
[2019-06-09] MEDS ORDERED: MetroNIDAZOLE 500 MG/100 ML 500 MG/100 ML BAG IVPB ONE (17:41)
[2019-06-09] MEDS ORDERED: *HR* LORazepam 2 MG/ML VIAL IVP ONE (18:17)
[2019-06-09] MEDS ORDERED: *HR* LORazepam 2 MG/ML VIAL IVP PRN ×3 (19:32)
[2019-06-09] MEDS ORDERED: Ondansetron 4 MG/2 ML VIAL IVP PRN (19:36)
[2019-06-09] MEDS ORDERED: Naloxone 0.4 MG/ML INJ IVP PRN (19:36)
[2019-06-09] MEDS ORDERED: 0.9 % Sodium Chloride 1,000 ML IVC SCH (19:45)
--- NOTE | 2019-06-09 19:57 | Internal Med History&Physical ---
Date of Encounter: 06/09/19 Time of Encounter: 19:43 Internal Medicine - H&P: HPI Chief complaint: Fall History of present illness: Ms. Rodriguez is a 59 year old female with PMH of COPD and current smoker of 2PPD, GERD, hypertension, liver disease, thyroid disease, TIA and alcohol abuse who presented to the ED after a reported fall. Of note patient was recently dischar [facility] on the for treatment of COPD exacerbation complicated by C. difficile colitis discharged on tapering dose of vancomycin. Patient on my assessment was found to be alert oriented 2. She was notably lethargic and could not provide a decent history. She received Delta and 2 mg of Ativan prior to my assessment which may explain current presentation. Per ED records, patient was brought in by squad for evaluation of injury secondary to fall. Patient reported that she was in her kitchen when she fell, apparently unsure as to how. EMS arrived and helped her up. Patient initially inclined to come into the hospital, however, several hours later she contacted the squad for evaluation of back pain she was having. On arrival, patient was afebrile and appeared to be hemodynamically stable. She reported to describe pain from her head to her backside. No reported loss of consciousness. No fever, chills, nausea, vomiting, chest pain or dyspnea were endorsed. Laboratory workup was notable for a leukocytosis of 19.6, hyponatremia 123, hypokalemia of 3.3, abnormal LFTs and lipase of 127. INR was noted to be 1.7. UA was notable for a moderate leukocyte esterase. Serum alcohol level of 58. Patient was able to tell him that she had 4 beers yesterday with regard to her last drink. Imaging of the spine revealed acute versus subacute compression fracture of the superior endplate of T6 new since March [address] of the head was unremarkable. CT of the abdomen and pelvis concerning for duodenitis and possible pancreatitis. Pancolitis seen previously appears to be resolving. Patient given Rocephin and Flagyl for possible duodenitis the setting of her elevated leukocytosis. She received DuoNeb's in the ED in addition to one tablet of Delta. We will admit patient for possible alcohol withdrawal, GI infection and workup for her abnormal LFTs. Past Med Surg Social Fam HX - Past Medical History Medical history: non-contributory, COPD, GERD, hypertension, liver disease, thyroid disease, TIA, other Additional medical history: insomnia Psychiatric history: anxiety, depression - Past Surgical History Surgical History: other Additional surgical history: D&C - Social History Smoking Status: Current every day smoker Smokeless Tobacco Status: No Alcohol use: heavy, recent Drug use: none - Family History Brother Adopted: No Living Status: Hx Family Cancer: Yes (Lung) Mother Family Member Ethnicity: Non- Living Status: Hx Family Cardiac Disorders: No Hx Family Respiratory Disorders: Yes (asthma) Hx Family Cancer: Yes (breast) Internal Medicine - H&P: Meds Escitalopram [Lexapro] 10 mg PO DAILY 12/30/17 [History] Cetirizine HCl [24Hour Allergy] 10 mg PO DAILY 09/14/18 [History] Meloxicam [Mobic] 15 mg PO DAILY 09/14/18 [History] Mirtazapine 7.5 mg PO HS 12/08/18 [History] Trazodone HCl 50 mg PO HS 12/08/18 [History] Tizanidine HCl 2 mg PO Q8H PRN 01/17/19 [History] amLODIPine [Norvasc] 5 mg PO DAILY #30 tablet 01/23/19 [Rx] Cholecalciferol (D-3) [Vitamin D] 1,000 unit PO DAILY #30 tablet 02/14/19 [Rx] Buspirone HCl [Buspar] 15 mg PO BID 03/04/19 [History] Metoprolol [Lopressor] 25 mg PO BID 03/04/19 [History] Guaifenesin [Mucinex] 600 mg PO Q12H 04/18/19 [History] HydrOXYzine [Atarax] 10 mg PO Q8H 05/24/19 [History] Omeprazole [PriLOSEC] 40 mg PO BID 05/24/19 [History] Albuterol Sulfate [Proventil Inhaler] 2 puff IH Q2HR PRN #1 inhaler 05/28/19 [Rx] Budesonide/Formoterol 160/4.5 [Symbicort 160/4.5] 2 puff IH BIDR 30 Days #1 inh 05/28/19 [Rx] OxyCODONE/APAP 5/325 [Percocet 5/325 MG] 1 each PO Q6HR PRN 7 Days #28 tablet 05/28/19 [Rx] PredniSONE [Deltasone] 10 mg PO DAILY 14 Days #32 tablet 05/28/19 [Rx] Vancomycin Oral Soln [Firvanq] 125 mg PO QID 26 Days #57 udc 05/28/19 [Rx] Allergy/AdvReac Type Severity Reaction Status Date / Time No Known Allergies Allergy Verified 05/24/19 16:16 All Systems PM: A 10-system review of systems was performed and is negative for pertinent findings except as documented above in the HPI. - Constitutional Constitutional: no chills, no fever(s), no night sweats - EENT Eyes: no change in vision, no discharge, no pain, no photophobia Ears: no ear discharge, no ear pain, no tinnitus Nose, mouth and throat: no dysphagia, no nasal discharge, no neck pain, no sore throat - Cardiovascular Cardiovascular ROS IM: no chest pain, no diaphoresis, no dyspnea, no lightheadedness, no palpitations, no syncope - Respiratory Respiratory: no cough, no dyspnea, no wheezing, no excessive phlegm production - Gastrointestinal Gastrointestinal: no abdominal pain, no diarrhea, no hematemesis, no hematochezia, no melena, no nausea, no vomiting - Genitourinary Genitourinary: no change in urinary stream, no dysuria, no flank pain, no hematuria - Musculoskeletal Musculoskeletal ROS IM: no numbness, no tingling - Integumentary Integumentary IM: no rash, no unusual bruising - Neurological Neurological ROS: no confusion, no convulsions, no focal weakness, no numbness, no tingling, no tremor(s) - Hematologic/Lymphatic Hematologic/Lymphatic: no easy bruising - Constitutional Vitals: Temp Pulse Resp BP Pulse Ox 98.0 F 78 16 140/77 99 06/09/19 10:55 06/09/19 18:15 06/09/19 18:15 06/09/19 18:15 06/09/19 18:15 Exam: General: Alert and oriented 2 Skin:Normal color, no rash, no lesions. HEENT:EOM, pupils equal, round and reactive. Cardiovascular:Normal S1 & S2, no rubs, murmurs or gallops. No JVD. Pulse regular. Lungs:Normal breath sounds, no wheezes or crackles. Abdomen:Soft, right upper quadrant tenderness Extremities:No deformity, no edema or tenderness, no joint swelling or clubbing. Neurological: No apparent neurological deficits aside from mental status. Further neurological exam could not be obtained due to mental status Pulses:Carotid and radial pulses normal +2. Rest of the physical exam is non contributory Internal Med - H&P Results - Labs CBC & Chem 7: 06/10/19 01:50 06/10/19 08:23 Labs: Short CBC 06/09/19 Range/Units 11:15 WBC 19.6 H (4.3-11.1) K/mcL Hgb 11.6 (11.5-15.4) g/dL Hct 32.9 L (35.3-44.9) % Plt Count 279 (140-400) K/mcL Neutrophils # 17.4 H (1.6-8.9) K/mcL BMP 06/09/19 11:15 Sodium 123 L Potassium 3.3 L Chloride 92 L Carbon Dioxide 28 BUN 23 Creatinine 0.47 L Glucose 132 H Calcium 7.4 L Liver Function 06/09/19 Range/Units 11:15 Total Bilirubin 1.4 H (0.3-1.0) mg/dL AST 868 H (13-39) Units/L ALT 407 H (7-52) Units/L Alkaline Phosphatase 380 H (34-104) Units/L Albumin 2.6 L (3.5-5.7) g/dL Urine 06/09/19 Range/Units 15:50 Urine Color Yellow (Yellow) Urine Clarity Cloudy A (Clear) Urine pH 5.5 (5.0-8.0) pH Units Ur Specific [place] 1.022 (1.010-1.025) Urine Protein Negative (Neg-Trace) mg/dL Urine Glucose (UA) Normal (Normal) mg/dL - Impressions ITS Impressions Chest X-Ray 06/09/19 11:48 IMPRESSION: 1. No acute cardiopulmonary disease. 2. COPD. D/ / 06/09/2019 11:51:52 Yulisa Meehan MD / shira Interpreting Provider: Yulisa Meehan MD Cervical Spine CT 06/09/19 14:33 IMPRESSION: No acute intracranial abnormality. Degenerative changes. No acute abnormality in the cervical spine. Acute to subacute compression fracture at the superior endplate of T6, with 25% height loss, new since March 03, 2019. Chronic compression deformities of T11 and T12, stable. No evidence of acute traumatic injury of the lumbar spine. Mild to moderate spinal canal narrowing at T11-12, secondary to retropulsion of posterior cortex of T12, stable. Increased interstitial lung markings, likely related to chronic lung changes. Superimposed inflammatory changes cannot be excluded. D/ / Dave Michaud MD / Dave Michaud MD Interpreting Provider: Dave Michaud MD Head CT 06/09/19 14:33 IMPRESSION: No acute intracranial abnormality. Degenerative changes. No acute abnormality in the cervical spine. Acute to subacute compression fracture at the superior endplate of T6, with 25% height loss, new since March 03, 2019. Chronic compression deformities of T11 and T12, stable. No evidence of acute traumatic injury of the lumbar spine. Mild to moderate spinal canal narrowing at T11-12, secondary to retropulsion of posterior cortex of T12, stable. Increased interstitial lung markings, likely related to chronic lung changes. Superimposed inflammatory changes cannot be excluded. D/ / Dave Michaud MD / Dave Michaud MD Interpreting Provider: Dave Michaud MD Lumbar Spine CT 06/09/19 14:33 IMPRESSION: No acute intracranial abnormality. Degenerative changes. No acute abnormality in the cervical spine. Acute to subacute compression fracture at the superior endplate of T6, with 25% height loss, new since March 03, 2019. Chronic compression deformities of T11 and T12, stable. No evidence of acute traumatic injury of the lumbar spine. Mild to moderate spinal canal narrowing at T11-12, secondary to retropulsion of posterior cortex of T12, stable. Increased interstitial lung markings, likely related to chronic lung changes. Superimposed inflammatory changes cannot be excluded. D/ / Dave Michaud MD / Dave Michaud MD Interpreting Provider: Dave Michaud MD Thoracic Spine CT 06/09/19 14:33 IMPRESSION: No acute intracranial abnormality. Degenerative changes. No acute abnormality in the cervical spine. Acute to subacute compression fracture at the superior endplate of T6, with 25% height loss, new since March 03, 2019. Chronic compression deformities of T11 and T12, stable. No evidence of acute traumatic injury of the lumbar spine. Mild to moderate spinal canal narrowing at T11-12, secondary to retropulsion of posterior cortex of T12, stable. Increased interstitial lung markings, likely related to chronic lung changes. Superimposed inflammatory changes cannot be excluded. D/ / Dave Michaud MD / Dave Michaud MD Interpreting Provider: Dave Michaud MD Abdomen/Pelvis CT 06/09/19 17:15 IMPRESSION: There is fat stranding within the anterior pararenal space, which is most likely secondary to duodenitis, with mural thickening of the 2nd and 3rd portions of the duodenum. Again, definite ulceration is not visualized, but that can be difficult to see with CT technique. There is some fat stranding adjacent to the pancreas which is probably related to the duodenitis, but correlate with any laboratory evidence of pancreatitis. The pancolitis seen previously for the most part has resolved, but there is mild residual mural thickening involving the ascending colon. There is new, prominent subcutaneous fat stranding in the left flank, along with dermal thickening. Correlate with clinical evidence of cellulitis or soft tissue contusion. D/ / Roderick Diaz MD / Roderick Diaz MD Interpreting Provider: Roderick Diaz MD - Assessment and Plan (1) Fall Current Visit: Yes Status: Acute Assessment and plan: Patient presenting with reported fall. Found down at home requiring assistance by EMS. Fall possibly resulting in T6 compression fracture. Troponin negative. EKG showing sinus rhythm with no evidence of ischemic changes. Etiology of fall unclear due to patient being a poor historian. Etiology includes alcohol intoxication, generalized weakness and malnutrition, dehydration, multiple electrolyte derangements, mechanical fall, syncope, sepsis etc. -Fall precautions -Telemetry -Check orthostatics -IV hydration -Correct electrolyte derangements -Treatment of alcohol withdrawal Qualifiers: Encounter type: initial encounter Qualified Code(s): W19.XXXA - Unspecified fall, initial encounter (2) Acute encephalopathy Current Visit: Yes Status: Acute Assessment and plan: Patient on my assessment was lethargic, arousal to sternal rub, would then answer questions and then fall back asleep. Patient received 2 mg of Ativan and one-time dose of Delta prior to my assessment. Per ED records patient was alert oriented during their assessment. Patient's current mental status may be secondary to administration of these medications. Nonetheless patient has multiple different arrangements and abnormal LFTs which may be contributing to her encephalopathy in addition to possible underlying's infectious process. We will check ammonia level as well. (3) Elevated LFTs Current Visit: Yes Status: Chronic Assessment and plan: Patient found to have abnormal LFTs with profile suggestive of a transaminitis in the setting of elevated serum alcohol level and alcohol abuse history. AST greater than ALT concerning for alcoholic hepatitis. Patient noted to have intermittent elevations in LFTs in the past with prior workup for viral hepatitis and acetaminophen toxicity. Has prior documentation of hepatic steatosis as well. INR also elevated at 1.7. No reported evidence of liver cirrhosis on CT of the abdomen. -Concern for alcohol hepatitis given AST to ALT ratio and elevated serum alcohol level. -Calculated Madrey's discriminant function score of 39.6 indicating poor prognosis and possible benefit from glucocorticoid therapy -We will start patient on methylprednisolone 32 g IV daily -We will obtain viral hepatitis panel -We will obtain an acetaminophen level -Consider further imaging -Consider GI consult (4) Hyponatremia Current Visit: Yes Status: Acute Assessment and plan: Patient presenting with hyponatremia with a sodium of 123. Last sodium was obtained on the 15 of this month and was 1:30. Review of records indicate patient has a chronic history of hyponatremia. Cause of likely related to history of alcohol abuse and evidence of malnutrition and therefore poor solid intake. Currently lethargic however ED records indicate patient was answering questions appropriately prior to my arrival. Suspect current lethargy likely secondary to Ativan and narcotic administration. No fluids were given up to this point. -Calculated serum osmolality 262; Patient does appear to be dry clinically. -We will start patient on gentle hydration with sodium checks every 2 hours -We will obtain urine sodium and osmolality; TSH; a.m. cortisol to further clarify etiology -Neuro checks every 2 hours -Goal of sodium correction 6-8 mEq within the next 24 hours -Consider nephrology consult if sodium does not improve accordingly (5) Alcohol withdrawal Current Visit: Yes Status: Acute Assessment and plan: History of alcohol abuse with likely ongoing abuse. Review his records indicated patient at one point was drinking 6 beers a day. Patient stated she had 4 beers yesterday but could not obtain any further details due to mental status. Serum alcohol level of 58. Concern for alcohol withdrawal. -We will start patient on CIWA protocol -Replete any electrolytes -Ativan PRN -We will give patient 1 time banana bag -Neuro checks every 2 hours -Consult to social sciences chair Qualifiers: Complication of substance-induced condition: uncomplicated Qualified Code(s): F10.230 - Alcohol dependence with withdrawal, uncomplicated (6) Compression fracture of T6 vertebra Current Visit: Yes Status: Acute Assessment and plan: Findings of acute versus subacute at the superior endplate of T6 possibly related to current presentation and reports a fall. Likely nonoperative -Patient on endorsing any pain at this time though did receive Delta in the ED -Consider discussion with orthopedics in the morning Qualifiers: Encounter type: initial encounter Qualified Code(s): S22.050A - Wedge compression fracture of T5-T6 vertebra, initial encounter for closed fracture (7) Duodenitis Current Visit: Yes Status: Acute Assessment and plan: CT scan of the abdomen showing fat stranding within the anterior pararenal space concerning for duodenitis with mural thickening of the second and third portions of the duodenum. Patient did appear to demonstrate pain to right upper quadrant deep palpation. Found to have a significant leukocytosis however etiology may be multifactorial given additional concerns for pancreatitis and abnormal LFTs concerning for possible alcohol hepatitis versus viral hepatitis. Patient has no fever and vitals currently stable. Patient was given ceftriaxone and Flagyl in the ED. Blood cultures obtained. -We will continue antibiotics for now -Follow-up blood cultures (8) Pancreatitis Current Visit: Yes Status: Acute Assessment and plan: CT scan of the abdomen showing possible inflammation around the head of the pancreas in the setting of duodenitis. Lipase level 127. History of alcohol abuse, however, currently not really convinced this is acute pancreatitis. Hemodynamically stable. --We will continue fluid hydration for now. -We will consider repeat lipase in the morning Qualifiers: Chronicity: acute Pancreatitis type: alcohol induced Acute pancreatitis complication: no infection or necrosis Qualified Code(s): K85.20 - Alcohol induced acute pancreatitis without necrosis or infection (9) C. difficile colitis Current Visit: Yes Status: Acute Assessment and plan: Recent diagnosis of C. difficile colitis diagnosed on previous admission. CT scan of the abdomen showing near resolution of previous pancolitis findings. Patient was discharged on PO vancomycin. Assuming first occurrence patient should have received a ten-day course which should have been completed by now assuming patient was compliant with medication. Discussed with pharmacy who states that she received 57 tablets which is unclear as to why. -At this time we will monitor for any further evidence of diarrhea (10) Hypokalemia Current Visit: Yes Status: Acute Assessment and plan: Potassium 3.3; -Replete as needed (11) Alcohol abuse Current Visit: No Status: Chronic Assessment and plan: See Alcohol withdrawal above (12) COPD (chronic obstructive pulmonary disease) Current Visit: No Status: Chronic Qualifiers: Qualified Code(s): J44.9 - Chronic obstructive pulmonary disease, unspecified (13) DVT prophylaxis Current Visit: No Status: Acute Assessment and plan: Intermittent pneumatic compression devices - Time Spent With Patient Total time spent is greater than 50% in coordination of care (as documented) at patient's floor/unit and/or counseling patient:
[2019-06-09] MEDS: Thiamine (B-1) 100 MG, Folic Acid 1 MG, MVI, adult with vitamin K 10 ML in 0.9 % Sodi... IVPB SCH (21:02)
[2019-06-09 22:50] LABS: Acetaminophen < 10 mcg/mL (10-20)
[2019-06-09] MEDS: Ringers Solution, Lactated 1,000 ML IVC SCH (23:51)
[2019-06-10 02:06] LABS: Eosinophils # 0.1 K/mcL (0.0-0.6); Eosinophils % 0.3 %; Hematocrit 35.3 % (35.3-44.9); Immature Granulocytes % 0.9 % (0-4); Lymphocytes # 0.4 K/mcL (0.6-4.6); Lymphocytes % 1.8 %; Mean Corpuscular Volume 88.3 fL (83.0-100.0); Mean Platelet Volume 9.9 fL (9.4-12.4); Monocytes # 0.3 K/mcL (0.0-1.3); Monocytes % 1.4 %; Neutrophils # 19.7 K/mcL (1.6-8.9); Platelet Count 211 K/mcL (140-400); Red Cell Distribution Width 18.3 % (11.5-14.5); Segmented Neutrophils % 95.6 %; White Blood Count 20.6 K/mcL (4.3-11.1)
[2019-06-10 02:15] LABS: INR 1.2; Prothrombin Time 13.1 Seconds (9.4-12.1)
[2019-06-10 02:18] LABS: Activated Partial Thrombo Time 37.6 Seconds (26.0-36.0)
[2019-06-10 02:38] LABS: Bilirubin,Direct 1.1 mg/dL (0.0-0.2); Bilirubin,Indirect 0.4 mg/dL (0.0-1.2); Bilirubin,Total 1.5 mg/dL (0.3-1.0); Chol/HDL Ratio 1.9 (0-4.9); Magnesium 1.7 mg/dL (1.6-2.6); Thyroid Stimulating Hormone 3.036 mcIU/mL (0.340-5.600)
[2019-06-10 02:46] LABS: Hepatitis B Surface Antigen Nonreactive (Nonreactive)
[2019-06-10 03:15] LABS: Hepatitis C Virus Antibody Nonreactive (Nonreactive)
[2019-06-10 03:16] LABS: Hepatitis A Antibody IgM Nonreactive (Nonreactive); Hepatitis B Core IgM Nonreactive (Nonreactive)
[2019-06-10 04:56] LABS: Alanine Aminotransferase 478 Units/L (7-52); Albumin 2.3 g/dL (3.5-5.7); Alkaline Phosphatase 423 Units/L (34-104); Aspartate Amino Transferase 752 Units/L (13-39); BUN/Creatinine Ratio 49 (6-26); Bilirubin,Total 1.3 mg/dL (0.3-1.0); Blood Urea Nitrogen 19 mg/dL (8-23); Calcium 6.9 mg/dL (8.6-10.3); Carbon Dioxide 22 mEq/L (23-29); Chloride 97 mEq/L (98-107); Globulin 2.3 g/dL (2.4-3.5); Glucose 103 mg/dL (70-105); Osmolality,Calculated 265 (280-300); Potassium 3.7 mEq/L (3.5-5.1); Sodium 126 mEq/L (136-145); Total Protein 4.6 g/dL (6.4-8.9); eGFR For African Americans > 60 (> 60); eGFR For Non-African Americans > 60 (> 60)
[2019-06-10 05:37] LABS: Sodium, Urine 12.8 mEq/L
[2019-06-10 05:38] LABS: Amphetamine Screen,Urine Negative ng/mL (Cutoff=1000); Barbiturate Screen,Urine Negative ng/mL (Cutoff=200); Benzodiazepines Screen,Urine Negative ng/mL (Cutoff=200); Cannabinoid Screen,Urine Negative ng/mL (Cutoff = 50); Cocaine Screen,Urine Negative ng/mL (Cutoff= 300); Opiate Screen,Urine Positive ng/mL (Cutoff=300); Phencyclidine Screen,Urine Negative ng/mL (Cutoff=25)
--- NOTE | 2019-06-10 08:11 | Internal Med Progress Note ---
Hospitalist Progress Note - Encounter Date of Encounter: 06/10/19 Time of Encounter: 09:00 - Subjective Interval History: No acute events overnight - Exam Vitals: Temp Pulse Resp BP Pulse Ox 98.4 F 97 16 155/88 100 06/10/19 06:38 06/10/19 06:38 06/10/19 06:38 06/10/19 06:38 06/10/19 06:38 Exam: General: Alert and oriented 2. Cachectic elderly female Skin:Normal color, no rash, no lesions. HEENT:EOM, pupils equal, round and reactive. Cardiovascular:Normal S1 & S2, no rubs, murmurs or gallops. No JVD. Pulse regular. Lungs:Normal breath sounds, no wheezes or crackles. Abdomen:Soft, right upper quadrant tenderness Extremities:No deformity, no edema or tenderness, no joint swelling or clubbing. Neurological: No apparent neurological deficits aside from mental status. Further neurological exam could not be obtained due to mental status Pulses:Carotid and radial pulses normal +2. Rest of the physical exam is non contributory - Assessment and Plan (1) Acute encephalopathy Current Visit: Yes Status: Acute Assessment and Plan: Likely 2/2 to dehydration, acute liver failure and acute lcohol intoxication Continue IV fluids and supportive care. Arousable on exam today (2) Acute alcoholic hepatitis Current Visit: Yes Status: Acute Assessment and Plan: Pt admits to consuming large amounts of alcohol and came in with acute hepatic failure with elevated liver enzymes Continue IV fluids. D/C steroids due to possibilty of duodenitis which may be slow to heal LFTS trending down. On CIWA protocol for withdrawal (3) Hyponatremia Current Visit: Yes Status: Acute Assessment and Plan: Continue IV fluids with normal saline. Monitor sodium levels q 12 hrs (4) Alcohol withdrawal Current Visit: Yes Status: Acute Assessment and Plan: On CIWA protocol. Continue IV fluids with banana bag (5) Compression fracture of T6 vertebra Current Visit: Yes Status: Acute Assessment and Plan: Findings of acute versus subacute at the superior endplate of T6 possibly related to current presentation and reports a fall. Likely nonoperative Outpatient follow up with orthopedic surgery (6) Duodenitis Current Visit: Yes Status: Acute Assessment and Plan: CT scan of the abdomen showing fat stranding within the anterior pararenal space concerning for duodenitis with mural thickening of the second and third portions of the duodenum. Continue zosyn and advance diet as tolerated. PPIs (7) Pancreatitis Current Visit: Yes Status: Acute Assessment and Plan: CT scan of the abdomen showing possible inflammation around the head of the pancreas in the setting of duodenitis. Lipase level 127. IV fluids, pain control. Advance diet as tolerated (8) C. difficile colitis Current Visit: Yes Status: Acute Assessment and Plan: Recent diagnosis of C. difficile colitis diagnosed on previous admission. CT scan of the abdomen showing near resolution of previous pancolitis findings Has history of recurrent c diff. Complete course of po vancomycin (9) Hypokalemia Current Visit: Yes Status: Acute Assessment and Plan: Potassium 3.3; -Replete as needed (10) COPD (chronic obstructive pulmonary disease) Current Visit: No Status: Chronic Assessment and Plan: Nebs PRN. No acute exacerbation (11) DVT prophylaxis Current Visit: No Status: Acute Assessment and Plan: Intermittent pneumatic compression devices - Time Spent with Patient Total time spent is greater than 50% in coordination of care (as documented) at patient's floor/unit and/or counseling patient: Internal Medicine: Result - Labs CBC & Chem 7: 06/10/19 01:50 06/10/19 08:23 Labs: Short CBC 06/09/19 06/10/19 Range/Units 11:15 01:50 WBC 19.6 H 20.6 H (4.3-11.1) K/mcL Hgb 11.6 12.0 (11.5-15.4) g/dL Hct 32.9 L 35.3 (35.3-44.9) % Plt Count 279 211 (140-400) K/mcL Neutrophils # 17.4 H 19.7 H (1.6-8.9) K/mcL BMP 06/09/19 06/09/19 06/10/19 11:15 23:56 01:50 Sodium 123 L 126 L 127 L Potassium 3.3 L Chloride 92 L Carbon Dioxide 28 BUN 23 Creatinine 0.47 L Glucose 132 H Calcium 7.4 L 06/10/19 06/10/19 04:22 06:28 Sodium 126 L 124 L Potassium 3.7 Chloride 97 L Carbon Dioxide 22 L BUN 19 Creatinine 0.39 L Glucose 103 Calcium 6.9 L Liver Function 06/09/19 06/10/19 06/10/19 Range/Units 11:15 01:50 04:22 Total Bilirubin 1.4 H 1.5 H 1.3 H (0.3-1.0) mg/dL Direct Bilirubin 1.1 H (0.0-0.2) mg/dL AST 868 H 752 H (13-39) Units/L ALT 407 H 478 H (7-52) Units/L Alkaline Phosphatase 380 H 423 H (34-104) Units/L Albumin 2.6 L 2.3 L (3.5-5.7) g/dL Urine 06/09/19 Range/Units 15:50 Urine Color Yellow (Yellow) Urine Clarity Cloudy A (Clear) Urine pH 5.5 (5.0-8.0) pH Units Ur Specific [place] 1.022 (1.010-1.025) Urine Protein Negative (Neg-Trace) mg/dL Urine Glucose (UA) Normal (Normal) mg/dL - ABG Interpretation ABG results: PT/INR, D-dimer PT 13.1 Seconds (9.4-12.1) H 06/10/19 01:50 - Impressions Impressions Chest X-Ray 06/09/19 11:48 IMPRESSION: 1. No acute cardiopulmonary disease. 2. COPD. D/ / 06/09/2019 11:51:52 Yulisa Meehan MD / shira Interpreting Provider: Yulisa Meehan MD Cervical Spine CT 06/09/19 14:33 IMPRESSION: No acute intracranial abnormality. Degenerative changes. No acute abnormality in the cervical spine. Acute to subacute compression fracture at the superior endplate of T6, with 25% height loss, new since March 03, 2019. Chronic compression deformities of T11 and T12, stable. No evidence of acute traumatic injury of the lumbar spine. Mild to moderate spinal canal narrowing at T11-12, secondary to retropulsion of posterior cortex of T12, stable. Increased interstitial lung markings, likely related to chronic lung changes. Superimposed inflammatory changes cannot be excluded. D/ / Dave Michaud MD / Dave Michaud MD Interpreting Provider: Dave Michaud MD Head CT 06/09/19 14:33 IMPRESSION: No acute intracranial abnormality. Degenerative changes. No acute abnormality in the cervical spine. Acute to subacute compression fracture at the superior endplate of T6, with 25% height loss, new since March 03, 2019. Chronic compression deformities of T11 and T12, stable. No evidence of acute traumatic injury of the lumbar spine. Mild to moderate spinal canal narrowing at T11-12, secondary to retropulsion of posterior cortex of T12, stable. Increased interstitial lung markings, likely related to chronic lung changes. Superimposed inflammatory changes cannot be excluded. D/ / Dave Michaud MD / Dave Michaud MD Interpreting Provider: Dave Michaud MD Lumbar Spine CT 06/09/19 14:33 IMPRESSION: No acute intracranial abnormality. Degenerative changes. No acute abnormality in the cervical spine. Acute to subacute compression fracture at the superior endplate of T6, with 25% height loss, new since March 03, 2019. Chronic compression deformities of T11 and T12, stable. No evidence of acute traumatic injury of the lumbar spine. Mild to moderate spinal canal narrowing at T11-12, secondary to retropulsion of posterior cortex of T12, stable. Increased interstitial lung markings, likely related to chronic lung changes. Superimposed inflammatory changes cannot be excluded. D/ / Dave Michaud MD / Dave Michaud MD Interpreting Provider: Dave Michaud MD Thoracic Spine CT 06/09/19 14:33 IMPRESSION: No acute intracranial abnormality. Degenerative changes. No acute abnormality in the cervical spine. Acute to subacute compression fracture at the superior endplate of T6, with 25% height loss, new since March 03, 2019. Chronic compression deformities of T11 and T12, stable. No evidence of acute traumatic injury of the lumbar spine. Mild to moderate spinal canal narrowing at T11-12, secondary to retropulsion of posterior cortex of T12, stable. Increased interstitial lung markings, likely related to chronic lung changes. Superimposed inflammatory changes cannot be excluded. D/ / Dave Michaud MD / Dave Michaud MD Interpreting Provider: Dave Michaud MD Abdomen/Pelvis CT 06/09/19 17:15 IMPRESSION: There is fat stranding within the anterior pararenal space, which is most likely secondary to duodenitis, with mural thickening of the 2nd and 3rd portions of the duodenum. Again, definite ulceration is not visualized, but that can be difficult to see with CT technique. There is some fat stranding adjacent to the pancreas which is probably related to the duodenitis, but correlate with any laboratory evidence of pancreatitis. The pancolitis seen previously for the most part has resolved, but there is mild residual mural thickening involving the ascending colon. There is new, prominent subcutaneous fat stranding in the left flank, along with dermal thickening. Correlate with clinical evidence of cellulitis or soft tissue contusion. D/ / Roderick Diaz MD / Roderick Diaz MD Interpreting Provider: Roderick Diaz MD Consult Discharge Plan - Plan Referrals: Terrie Joseph, NURSERY MANAGER [Primary Care Provider] - (4) Alcohol withdrawal Qualifiers: Complication of substance-induced condition: uncomplicated Qualified Code(s): F10.230 - Alcohol dependence with withdrawal, uncomplicated (5) Compression fracture of T6 vertebra Qualifiers: Encounter type: initial encounter Qualified Code(s): S22.050A - Wedge compression fracture of T5-T6 vertebra, initial encounter for closed fracture (7) Pancreatitis Qualifiers: Chronicity: acute Pancreatitis type: alcohol induced Acute pancreatitis comp lication: no infection or necrosis Qualified Code(s): K85.20 - Alcohol induced acute pancreatitis without necrosis or infection (10) COPD (chronic obstructive pulmonary disease) Qualifiers: Qualified Code(s): J44.9 - Chronic obstructive pulmonary disease, unspecified
[2019-06-10] MEDS: Vancomycin Oral Soln 125 MG/2.5 ML UDC PO SCH ×4 (09:42→21:37)
[2019-06-10] MEDS: Piperacillin/Tazobactam 3.375 GM in 0.9 % Sodium Chloride Mini Bag 100 ML IVPB SCH ×2 (09:42→18:02)
[2019-06-10] MEDS: MethylPREDNISolone 40 MG/ML VIAL IVP SCH ×2 (09:42)
[2019-06-10] MEDS ORDERED: Calcium Gluconate 1gm/50mL 1 GM/50 ML BAG IVPB ONE (14:35)
[2019-06-10] MEDS: 0.9 % Sodium Chloride 1,000 ML IVC SCH (16:09)
[2019-06-10] MEDS: Pantoprazole 40 MG VIAL IVP SCH ×2 (16:30→18:02)
[2019-06-10] MEDS: Thiamine (B-1) 100 MG, Folic Acid 1 MG, MVI, adult with vitamin K 10 ML in 0.9 % Sodi... IVPB SCH (18:19)
[2019-06-11] MEDS: Piperacillin/Tazobactam 3.375 GM in 0.9 % Sodium Chloride Mini Bag 100 ML IVPB SCH (00:13)
[2019-06-11 02:36] LABS: Hematocrit 27.7 % (35.3-44.9); Immature Granulocytes % 0.8 % (0-4); Lymphocytes # 0.5 K/mcL (0.6-4.6); Lymphocytes % 3.6 %; Mean Corpuscular HGB Conc 34.3 g/dL (31.6-35.5); Mean Corpuscular Hemoglobin 29.9 pg (28.0-33.3); Mean Corpuscular Volume 87.1 fL (83.0-100.0); Mean Platelet Volume 9.4 fL (9.4-12.4); Monocytes # 0.5 K/mcL (0.0-1.3); Monocytes % 3.7 %; Neutrophils # 12.9 K/mcL (1.6-8.9); Platelet Count 229 K/mcL (140-400); Red Blood Count 3.18 M/mcL (3.82-4.97); Red Cell Distribution Width 17.7 % (11.5-14.5); Segmented Neutrophils % 91.9 %
[2019-06-11 02:38] LABS: Hemoglobin 9.5 g/dL (11.5-15.4)
[2019-06-11 02:58] LABS: Alanine Aminotransferase 324 Units/L (7-52); Albumin 2.3 g/dL (3.5-5.7); Alkaline Phosphatase 442 Units/L (34-104); Aspartate Amino Transferase 272 Units/L (13-39); BUN/Creatinine Ratio 28 (6-26); Blood Urea Nitrogen 11 mg/dL (8-23); Calcium 7.3 mg/dL (8.6-10.3); Carbon Dioxide 24 mEq/L (23-29); Chloride 101 mEq/L (98-107); Globulin 2.2 g/dL (2.4-3.5); Glucose 140 mg/dL (70-105); Magnesium 1.7 mg/dL (1.6-2.6); Osmolality,Calculated 274 (280-300); Potassium 3.9 mEq/L (3.5-5.1); Sodium 131 mEq/L (136-145); Total Protein 4.5 g/dL (6.4-8.9); eGFR For African Americans > 60 (> 60); eGFR For Non-African Americans > 60 (> 60)
[2019-06-11] MEDS: 0.9 % Sodium Chloride 1,000 ML IVC SCH ×3 (03:08→21:07)
[2019-06-11] MEDS: Pantoprazole 40 MG VIAL IVP SCH ×2 (06:03→18:39)
--- NOTE | 2019-06-11 08:11 | Internal Med Progress Note ---
Hospitalist Progress Note - Encounter Date of Encounter: 06/11/19 Time of Encounter: 09:00 - Subjective Interval History: No acute events overnight - Exam Vitals: Temp Pulse Resp BP Pulse Ox 97.7 F 94 16 176/98 100 06/11/19 06:35 06/11/19 06:35 06/11/19 06:35 06/11/19 06:35 06/11/19 06:35 Exam: General: Alert and oriented 2. Cachectic elderly female Skin:Normal color, no rash, no lesions. HEENT:EOM, pupils equal, round and reactive. Cardiovascular:Normal S1 & S2, no rubs, murmurs or gallops. No JVD. Pulse regular. Lungs:Normal breath sounds, no wheezes or crackles. Abdomen:Soft, right upper quadrant tenderness Extremities:No deformity, no edema or tenderness, no joint swelling or clubbing. Neurological: No apparent neurological deficits aside from mental status. Further neurological exam could not be obtained due to mental status Pulses:Carotid and radial pulses normal +2. Rest of the physical exam is non contributory - Assessment and Plan (1) Acute encephalopathy Current Visit: Yes Status: Acute Assessment and Plan: Likely 2/2 to dehydration, acute liver failure and acute alcohol intoxication Continue IV fluids and supportive care. Improved and alert and oriented (2) Acute alcoholic hepatitis Current Visit: Yes Status: Acute Assessment and Plan: Pt admits to consuming large amounts of alcohol and came in with acute hepatic failure with elevated liver enzymes Continue IV fluids. D/C steroids due to possibilty of duodenitis which may be slow to heal LFTS trending down. On CIWA protocol for withdrawal (3) Hyponatremia Current Visit: Yes Status: Acute Assessment and Plan: Continue IV fluids with normal saline. Monitor sodium levels q 12 hrs Resolving (4) Alcohol withdrawal Current Visit: Yes Status: Acute Assessment and Plan: On CIWA protocol. Continue IV fluids with banana bag (5) Compression fracture of T6 vertebra Current Visit: Yes Status: Acute Assessment and Plan: Findings of acute versus subacute at the superior endplate of T6 possibly related to current presentation and reports a fall. Likely nonoperative Outpatient follow up with orthopedic surgery (6) Duodenitis Current Visit: Yes Status: Acute Assessment and Plan: CT scan of the abdomen showing fat stranding within the anterior pararenal space concerning for duodenitis with mural thickening of the second and third portions of the duodenum. Continue ceftriaxone and advance diet as tolerated. PPIs (7) Pancreatitis Current Visit: Yes Status: Acute Assessment and Plan: CT scan of the abdomen showing possible inflammation around the head of the pancreas in the setting of duodenitis. Lipase level 127. IV fluids, pain control. Advance diet as tolerated (8) C. difficile colitis Current Visit: Yes Status: Acute Assessment and Plan: Recent diagnosis of C. difficile colitis diagnosed on previous admission. CT scan of the abdomen showing near resolution of previous pancolitis findings Has history of recurrent c diff. Complete course of po vancomycin (9) Hypokalemia Current Visit: Yes Status: Acute Assessment and Plan: Potassium 3.3; -Replete as needed (10) COPD (chronic obstructive pulmonary disease) Current Visit: Yes Status: Chronic Assessment and Plan: Nebs PRN. No acute exacerbation (11) DVT prophylaxis Current Visit: No Status: Acute Assessment and Plan: Intermittent pneumatic compression devices - Time Spent with Patient Total time spent is greater than 50% in coordination of care (as documented) at patient's floor/unit and/or counseling patient: Internal Medicine: Result - Labs CBC & Chem 7: 06/11/19 02:23 06/11/19 02:23 Labs: Short CBC 06/11/19 Range/Units 02:23 WBC 14.0 H (4.3-11.1) K/mcL Hgb 9.5 L D (11.5-15.4) g/dL Hct 27.7 L (35.3-44.9) % Plt Count 229 (140-400) K/mcL Neutrophils # 12.9 H (1.6-8.9) K/mcL BMP 06/10/19 06/10/19 06/11/19 08:23 21:17 02:23 Sodium 127 L 130 L 131 L Potassium 3.9 Chloride 101 Carbon Dioxide 24 BUN 11 Creatinine 0.40 L Glucose 140 H Calcium 7.3 L Liver Function 06/11/19 Range/Units 02:23 Total Bilirubin 1.0 (0.3-1.0) mg/dL AST 272 H (13-39) Units/L ALT 324 H (7-52) Units/L Alkaline Phosphatase 442 H (34-104) Units/L Albumin 2.3 L (3.5-5.7) g/dL - ABG Interpretation ABG results: PT/INR, D-dimer PT 13.1 Seconds (9.4-12.1) H 06/10/19 01:50 Consult Discharge Plan - Plan Referrals: Terrie Joseph CNP [Primary Care Provider] - (4) Alcohol withdrawal Qualifiers: Complication of substance-induced condition: uncomplicated Qualified Code(s): F10.230 - Alcohol dependence with withdrawal, uncomplicated (5) Compression fracture of T6 vertebra Qualifiers: Encounter type: initial encounter Qualified Code(s): S22.050A - Wedge compression fracture of T5-T6 vertebra, initial encounter for closed fracture (7) Pancreatitis Qualifiers: Chronicity: acute Pancreatitis type: alcohol induced Acute pancreatitis complication: no infection or necrosis Qualified Code(s): K85.20 - Alcohol induced acute pancreatitis without necrosis or infection (10) COPD (chronic obstructive pulmonary disease) Qualifiers: Qualified Code(s): J44.9 - Chronic obstructive pulmonary disease, unspecified
[2019-06-11] MEDS: cefTRIAXone 1,000 MG in Water for inj. (sterile) 10 ML IVP SCH (09:50)
[2019-06-11] MEDS: Vancomycin Oral Soln 125 MG/2.5 ML UDC PO SCH ×4 (09:50→21:07)
[2019-06-11] MEDS: Thiamine (B-1) 100 MG, Folic Acid 1 MG, MVI, adult with vitamin K 10 ML in 0.9 % Sodi... IVPB SCH (18:38)
[2019-06-12] MEDS: Pantoprazole 40 MG VIAL IVP SCH ×2 (06:32→17:04)
[2019-06-12] MEDS: 0.9 % Sodium Chloride 1,000 ML IVC SCH ×4 (06:33→17:42)
[2019-06-12] MEDS: Piperacillin/Tazobactam 3.375 GM in 0.9 % Sodium Chloride Mini Bag 100 ML IVPB SCH (06:39)
[2019-06-12] MEDS: Ringers Solution, Lactated 1,000 ML IVC SCH (06:40)
[2019-06-12 06:53] LABS: Basophils % 0.1 %; Eosinophils # 0.2 K/mcL (0.0-0.6); Hematocrit 26.8 % (35.3-44.9); Hemoglobin 9.1 g/dL (11.5-15.4); Immature Granulocytes % 0.6 % (0-4); Lymphocytes # 1.4 K/mcL (0.6-4.6); Lymphocytes % 9.6 %; Mean Corpuscular Volume 88.4 fL (83.0-100.0); Monocytes # 0.5 K/mcL (0.0-1.3); Monocytes % 3.7 %; Neutrophils # 12.3 K/mcL (1.6-8.9); Platelet Count 164 K/mcL (140-400); Red Blood Count 3.03 M/mcL (3.82-4.97); Red Cell Distribution Width 18.4 % (11.5-14.5); White Blood Count 14.4 K/mcL (4.3-11.1)
[2019-06-12 07:13] LABS: Alanine Aminotransferase 238 Units/L (7-52); Albumin 2.3 g/dL (3.5-5.7); Albumin/Globulin Ratio 1.1 (1.1-2.2); Alkaline Phosphatase 449 Units/L (34-104); Aspartate Amino Transferase 140 Units/L (13-39); BUN/Creatinine Ratio 17 (6-26); Bilirubin,Total 0.8 mg/dL (0.3-1.0); Blood Urea Nitrogen 4 mg/dL (8-23); Calcium 6.9 mg/dL (8.6-10.3); Carbon Dioxide 27 mEq/L (23-29); Chloride 104 mEq/L (98-107); Globulin 2.1 g/dL (2.4-3.5); Glucose 86 mg/dL (70-105); Magnesium 1.4 mg/dL (1.6-2.6); Osmolality,Calculated 272 (280-300); Phosphorous 1.4 mg/dL (2.7-4.5); Sodium 133 mEq/L (136-145); Total Protein 4.4 g/dL (6.4-8.9); eGFR For African Americans > 60 (> 60); eGFR For Non-African Americans > 60 (> 60)
[2019-06-12] MEDS ORDERED: Potassium Phosphate 44 MEQ in 0.9 % Sodium Chloride 250 ML IVPB ONE (07:50)
--- NOTE | 2019-06-12 07:52 | Internal Med Progress Note ---
Hospitalist Progress Note - Encounter Date of Encounter: 06/12/19 Time of Encounter: 08:00 - Subjective Interval History: No acute events overnight - Exam Vitals: Temp Pulse Resp BP Pulse Ox 97.9 F 91 16 155/92 97 06/12/19 05:55 06/12/19 05:55 06/11/19 19:18 06/12/19 05:55 06/12/19 05:55 Exam: General: Alert and oriented 2. Cachectic elderly female Skin:Normal color, no rash, no lesions. HEENT:EOM, pupils equal, round and reactive. Cardiovascular:Normal S1 & S2, no rubs, murmurs or gallops. No JVD. Pulse regular. Lungs:Normal breath sounds, no wheezes or crackles. Abdomen:Soft, right upper quadrant tenderness Extremities:No deformity, no edema or tenderness, no joint swelling or clubbing. Neurological: No apparent neurological deficits aside from mental status. Further neurological exam could not be obtained due to mental status Pulses:Carotid and radial pulses normal +2. Rest of the physical exam is non contributory - Assessment and Plan (1) Acute encephalopathy Current Visit: Yes Status: Acute Assessment and Plan: Acute metabolic and toxic encephalopathy 2/2 to dehydration, UTI, acute liver failure and acute alcohol intoxication Continue IV fluids and supportive care. Improved and alert and oriented (2) Sepsis Current Visit: Yes Status: Acute Assessment and Plan: Pt came in with leukocytosis and abdominal pain. Urine cultures growing klebsiella and CT abdomen showed duodenitis Continue ceftriaxone and IV fluids. WBC trending down (3) Acute alcoholic hepatitis Current Visit: Yes Status: Acute Assessment and Plan: Pt admits to consuming large amounts of alcohol and came in with acute hepatic failure with elevated liver enzymes Continue IV fluids. D/C steroids due to possibilty of duodenitis which may be slow to heal LFTS trending down. On CIWA protocol for withdrawal (4) Hyponatremia Current Visit: Yes Status: Acute Assessment and Plan: Continue IV fluids with normal saline. Monitor sodium levels q 12 hrs Resolving (5) Alcohol withdrawal Current Visit: Yes Status: Acute Assessment and Plan: On CIWA protocol. Continue IV fluids with banana bag (6) Compression fracture of T6 vertebra Current Visit: Yes Status: Acute Assessment and Plan: Findings of acute versus subacute at the superior endplate of T6 possibly related to current presentation and reports a fall. Likely nonoperative Outpatient follow up with orthopedic surgery (7) Duodenitis Current Visit: Yes Status: Acute Assessment and Plan: CT scan of the abdomen showing fat stranding within the anterior pararenal space concerning for duodenitis with mural thickening of the second and third portions of the duodenum. Continue ceftriaxone and advance diet as tolerated. PPIs (8) Pancreatitis Current Visit: Yes Status: Acute Assessment and Plan: CT scan of the abdomen showing possible inflammation around the head of the pancreas in the setting of duodenitis. Lipase level 127. IV fluids, pain control. Advance diet as tolerated (9) C. difficile colitis Current Visit: Yes Status: Acute Assessment and Plan: Recent diagnosis of C. difficile colitis diagnosed on previous admission. CT scan of the abdomen showing near resolution of previous pancolitis findings Has history of recurrent c diff. Complete course of po vancomycin (10) Hypokalemia Current Visit: Yes Status: Acute Assessment and Plan: Potassium 3.3; -Replete as needed (11) COPD (chronic obstructive pulmonary disease) Current Visit: Yes Status: Chronic Assessment and Plan: Nebs PRN. No acute exacerbation (12) DVT prophylaxis Current Visit: No Status: Acute Assessment and Plan: Intermittent pneumatic compression devices - Time Spent with Patient Total time spent is greater than 50% in coordination of care (as documented) at patient's floor/unit and/or counseling patient: Internal Medicine: Result - Labs CBC & Chem 7: 06/12/19 06:24 06/12/19 06:24 Labs: Short CBC 06/12/19 Range/Units 06:24 WBC 14.4 H (4.3-11.1) K/mcL Hgb 9.1 L (11.5-15.4) g/dL Hct 26.8 L (35.3-44.9) % Plt Count 164 (140-400) K/mcL Neutrophils # 12.3 H (1.6-8.9) K/mcL BMP 06/12/19 06:24 Sodium 133 L Potassium 3.0 L Chloride 104 Carbon Dioxide 27 BUN 4 L Creatinine 0.24 L Glucose 86 Calcium 6.9 L Liver Function 06/12/19 Range/Units 06:24 Total Bilirubin 0.8 (0.3-1.0) mg/dL AST 140 H (13-39) Units/L ALT 238 H (7-52) Units/L Alkaline Phosphatase 449 H (34-104) Units/L Albumin 2.3 L (3.5-5.7) g/dL - ABG Interpretation ABG results: PT/INR, D-dimer PT 13.1 Seconds (9.4-12.1) H 06/10/19 01:50 Consult Discharge Plan - Plan Referrals: Terrie Joseph, COMMUNITY EDUCATOR [Primary Care Provider] - (5) Alcohol withdrawal Qualifiers: Complication of substance-induced condition: uncomplicated Qualified Code(s): F10.230 - Alcohol dependence with withdrawal, uncomplicated (6) Compression fracture of T6 vertebra Qualifiers: Encounter type: initial encounter Qualified Code(s): S22.050A - Wedge compression fracture of T5-T6 vertebra, initial encounter for closed fracture (8) Pancreatitis Qualifiers: Chronicity: acute Pancreatitis type: alcohol induced Acute pancreatitis complication: no infection or necrosis Qualified Code(s): K85.20 - Alcohol induced acute pancreatitis without necrosis or infection (11) COPD (chronic obstructive pulmonary disease) Qualifiers: Qualified Code(s): J44.9 - Chronic obstructive pulmonary disease, unspecified
--- NOTE | 2019-06-12 08:51 | Gastroenterology Consult Note ---
<Juancarlos Robertson - Last Filed: 06/12/19 17:33> Date of Encounter: 06/12/19 Time of Encounter: 09:00 - Assessment and plan (1) Alcoholic hepatitis Current Visit: Yes Status: Acute Assessment and plan: - Patient has a Hx of Alcohol abuse. Her last drink was a day before she was brought to the ED secondary to fall. - Workup in the ED showed elevated transaminases with AST: 868, ALT: 407, Alk Phos: 380 - Her Maddrey's Score was 39.6, [place] Alcoholic Hepatitis Score : 9 and MELD score was 39 -She underwent CT Abdomen without contrast which showed fat stranding in the anteror pararenal space with concerns for Duodenitis - Patient was givena dose of methylprednisolone was was discontinued because of history of duodenitis -Consider transaminases have been trending down with the most recent value beingAST: 140, ALT:238. However, alk phos has been uptrending from 380-> 449 -Her most recent Maddrey's score has come down from 10.5, MELD 8, and CIWA score of 2 - correctional counselor/case manager of alcohol abstinence and nutritional support . PPI for GI prophylaxis Qualifiers: Qualified Code(s): K70.10 - Alcoholic hepatitis without ascites (2) Duodenitis Current Visit: Yes Status: Acute Assessment and plan: Patient's CT abdomen pelvis without contrast showed fat stranding within the anterior pararenal space most likely secondary to duodenitis with mural thickening of the second and third portion of the duodenum -Patient was given Ceftriaxone and Flagyl in the ED - patient is to get an EGD tomorrow. NPO after midnight. - Time Spent With Patient Total time spent is greater than 50% in coordination of care (as documented) at patient's floor/unit and/or counseling patient: GI History of Present Illness - Data of Consult Requesting Physician: Chan Rosas MD - Consult Narrative History of present illness: Ms. Rodriguez is a 59 year old female with a past medical history of Cdiff Colitis, COPD, GERD, hypertension, liver disease, TIA , alcohol abuse who presents to the ED after history of fall. GI was consulted for elevated transaminases along with evidence of duodenitis on CT This is a 59 year-old female with multiple comorbidities who presents to the ED for fall. Patient has a history of extensive alcohol abuse. Most of the information was obtained from browsing through patient's of previous records. Initial workup in the ED showed that patient was leukocytotic at 19.6, sodium of 123, hypokalemia at 3.3 with AST of 868, ALT of 47 and alkaline phosphatase of 380, serum total protein was 4.6, albumin was 2.6 She had a Maddrey's score of 39.6, [place] alcoholic hepatitis: 9 MELD score : 39, Ethyl Alcohol : 58. Her hepatitis serology was negative. She was given a dose of methylprednisone on 06/10/19 was eventually stopped due to concerns for duodenitis. Patient is currently fluid resuscitated and her most recent Maddrey's Score is 10.5. Past Med Surg Social Fam HX - Past Medical History Medical history: non-contributory, COPD, GERD, hypertension, liver disease, thyroid disease, TIA, other Additional medical history: insomnia Psychiatric history: anxiety, depression - Past Surgical History Surgical History: other Additional surgical history: D&C - Social History Smoking Status: Current every day smoker Smokeless Tobacco Status: No Alcohol use: heavy, recent Drug use: none - Family History Brother Adopted: No Living Status: Hx Family Cancer: Yes (Lung) Mother Family Member Ethnicity: Non- Living Status: Hx Family Cardiac Disorders: No Hx Family Respiratory Disorders: Yes (asthma) Hx Family Cancer: Yes (breast) Review of Systems: A 10-system review of systems was performed and is negative for pertinent findings except as documented above in the HPI. - Constitutional Vitals: Temp Pulse Resp BP Pulse Ox 97.9 F 84 14 144/91 96 06/12/19 05:55 06/12/19 07:54 06/12/19 07:54 06/12/19 07:54 06/12/19 07:54 Exam: Gen.: somnolent HEENT: oropharynx clear, Normocephalic, atraumatic, MMM Neck: supple, no JVD, no lymphadenopathy, no carotid bruit. Cardiac: RRR, no murmur, +S1/S2, No BLE edema, PMI non-displaced Pulmonary: CTA bilaterally, no wheezes, rales or rhonchi, equal chest expansion, unlabored breathing Abdomen: diffuse tendernes no guarding, undistended. No organomegaly, no pulsatile masses, Skin: warm and dry, no visible lesions. Feels warm, clammy, no rashes, no lesions, no erythema MSK: ROM not assessed. no joint swelling noted, gait not assessed while in bed. Non tender calf or clubbing, no cyanosis/clubbing/ or edema Neuro: A&O, moves all extremities, no focal deficits, sensation intact Results - Labs CBC & Chem 7: 06/12/19 06:24 06/12/19 06:24 Labs: Last Result 06/12/19 06:24 Calcium 6.9 L Entire Visit 06/12/19 06/12/19 06:24 06:24 Hgb 9.1 L Hct 26.8 L Total Bilirubin 0.8 AST 140 H ALT 238 H - ABG ABG results: PT/INR, D-dimer PT 13.1 Seconds (9.4-12.1) H 06/10/19 01:50 Consult Discharge Plan - Plan Referrals: Terrie Joseph MOSAIC WORKER [Primary Care Provider] - <Wilver Tony - Last Filed: 06/16/19 08:13> Date of Encounter: 06/12/19 Time of Encounter: 14:00 - Time Spent With Patient Total time spent is greater than 50% in coordination of care (as documented) at patient's floor/unit and/or counseling patient: GI History of Present Illness - Data of Consult Requesting Physician: Samantha Louis - Consult Narrative History of present illness: Ms. Rodriguez is a 59 year old female - Constitutional Vitals: Temp Pulse Resp BP Pulse Ox 97.9 F 97 16 153/82 96 06/16/19 08:10 06/16/19 08:10 06/16/19 08:10 06/16/19 08:10 06/16/19 08:10 Results - Labs CBC & Chem 7: 06/16/19 04:00 06/16/19 04:00 Labs: Last Result 06/16/19 06/16/19 06/16/19 04:00 04:00 04:00 Calcium 7.6 L Iron 21 L % Saturation 13 L Transferrin 117 L Ferritin 399 H Vitamin B12 397 Folate 12.5 Entire Visit 06/16/19 06/16/19 06/16/19 04:00 04:00 04:00 Hgb 6.7 L Hct 21.0 L Ferritin Total Bilirubin 0.3 AST 17 ALT 56 H Folate 12.5 06/16/19 04:00 Hgb Hct Ferritin 399 H Total Bilirubin AST ALT Folate - ABG ABG results: PT/INR, D-dimer PT 13.1 Seconds (9.4-12.1) H 06/10/19 01:50 - Attending Attestation I examined this patient and my medical decision-making was reviewed with the Resident Physician. I agree with the documented findings, disposition and treatment plan as described except to the extent set forth below. Pt Seen. No abdominal pain on examination mild tenderness right quadrant. Assessment: Patient with the alcoholic hepatitis currently Meet criteria for IV steroids # 2 abnormal imaging of duodenum rule out peptic ulcer disease. Rec: Continue supportive care EGD to rule out peptic ulcer disease. No alcohol
[2019-06-12] MEDS ORDERED: Calcium Chloride 1,000 MG in 0.9 % Sodium Chloride 100 ML IVPB ONE (09:06)
[2019-06-12] MEDS: Potassium Chloride Elixir 20 MEQ/15 ML UDC PO SCH ×2 (09:08→12:19)
[2019-06-12] MEDS: cefTRIAXone 1,000 MG in Water for inj. (sterile) 10 ML IVP SCH (09:08)
[2019-06-12] MEDS: Vancomycin Oral Soln 125 MG/2.5 ML UDC PO SCH ×2 (09:09→12:19)
[2019-06-12] MEDS ORDERED: Calcium Gluconate 1gm/50mL 1 GM/50 ML BAG IVPB ONE (11:00)
[2019-06-12] MEDS: Budesonide/Formoterol 160/4.5 1 PUFF INH IH SCH ×2 (11:27→19:42)
[2019-06-12] MEDS: Gabapentin 300 MG CAPSULE PO SCH ×2 (14:38→23:01)
[2019-06-12] MEDS: *HR* Heparin 5,000 UNIT/ML VIAL SQ SCH (17:04)
[2019-06-12] MEDS: Mirtazapine 15 MG TABLET PO SCH (23:02)
[2019-06-12] MEDS: traZODone 50 MG TABLET PO SCH (23:02)
[2019-06-13] MEDS: 0.9 % Sodium Chloride 1,000 ML IVC SCH ×2 (03:51→13:30)
[2019-06-13] MEDS: *HR* Heparin 5,000 UNIT/ML VIAL SQ SCH ×2 (06:22→18:06)
[2019-06-13] MEDS: Pantoprazole 40 MG VIAL IVP SCH ×2 (06:22→18:06)
[2019-06-13] MEDS: *HR* OxyCODONE/APAP 5/325 TABLET PO PRN ×2 (06:23→15:56)
[2019-06-13 07:04] LABS: Basophils % 0.1 %; Eosinophils # 0.3 K/mcL (0.0-0.6); Eosinophils % 2.3 %; Hemoglobin 9.4 g/dL (11.5-15.4); Immature Granulocytes % 0.3 % (0-4); Lymphocytes # 1.3 K/mcL (0.6-4.6); Lymphocytes % 10.9 %; Mean Corpuscular HGB Conc 32.4 g/dL (31.6-35.5); Mean Corpuscular Hemoglobin 29.8 pg (28.0-33.3); Mean Corpuscular Volume 92.1 fL (83.0-100.0); Mean Platelet Volume 10.4 fL (9.4-12.4); Monocytes # 0.4 K/mcL (0.0-1.3); Monocytes % 3.6 %; Neutrophils # 9.9 K/mcL (1.6-8.9); Platelet Count 130 K/mcL (140-400); Red Blood Count 3.15 M/mcL (3.82-4.97); Red Cell Distribution Width 17.3 % (11.5-14.5); Segmented Neutrophils % 82.8 %; White Blood Count 11.9 K/mcL (4.3-11.1)
[2019-06-13 07:28] LABS: Alanine Aminotransferase 191 Units/L (7-52); Albumin 2.6 g/dL (3.5-5.7); Alkaline Phosphatase 431 Units/L (34-104); Aspartate Amino Transferase 69 Units/L (13-39); Bilirubin,Total 0.7 mg/dL (0.3-1.0); Blood Urea Nitrogen < 2 mg/dL (8-23); Calcium 7.3 mg/dL (8.6-10.3); Carbon Dioxide 32 mEq/L (23-29); Chloride 98 mEq/L (98-107); Globulin 2.6 g/dL (2.4-3.5); Glucose 73 mg/dL (70-105); Magnesium 1.5 mg/dL (1.6-2.6); Phosphorous 3.3 mg/dL (2.7-4.5); Potassium 3.6 mEq/L (3.5-5.1); Sodium 133 mEq/L (136-145); Total Protein 5.2 g/dL (6.4-8.9)
[2019-06-13] MEDS: Budesonide/Formoterol 160/4.5 1 PUFF INH IH SCH ×2 (07:34→21:55)
[2019-06-13] MEDS: cefTRIAXone 1,000 MG in Water for inj. (sterile) 10 ML IVP SCH (08:43)
[2019-06-13] MEDS: Cholecalciferol (D-3) 1,000 UNIT (25MCG) TABLET PO SCH (08:44)
[2019-06-13] MEDS: Gabapentin 300 MG CAPSULE PO SCH ×3 (08:44→22:02)
--- NOTE | 2019-06-13 08:47 | Internal Med Progress Note ---
Hospitalist Progress Note - Encounter Date of Encounter: 06/13/19 Time of Encounter: 08:00 - Subjective Interval History: No acute events overnight - Exam Vitals: Temp Pulse Resp BP Pulse Ox 97.9 F 66 16 125/63 98 06/13/19 08:12 06/13/19 08:12 06/13/19 08:13 06/13/19 08:12 06/13/19 08:13 Exam: General: Alert and oriented 2. Cachectic elderly female Skin:Normal color, no rash, no lesions. HEENT:EOM, pupils equal, round and reactive. Cardiovascular:Normal S1 & S2, no rubs, murmurs or gallops. No JVD. Pulse regular. Lungs:Normal breath sounds, no wheezes or crackles. Abdomen:Soft, right upper quadrant tenderness Extremities:No deformity, no edema or tenderness, no joint swelling or clubbing. Neurological: No apparent neurological deficits aside from mental status. Further neurological exam could not be obtained due to mental status Pulses:Carotid and radial pulses normal +2. Rest of the physical exam is non contributory - Assessment and Plan (1) Acute encephalopathy Current Visit: Yes Status: Acute Assessment and Plan: Acute metabolic and toxic encephalopathy 2/2 to dehydration, UTI, acute liver failure and acute alcohol intoxication Continue IV fluids and supportive care. Improved and alert and oriented (2) Duodenitis Current Visit: Yes Status: Acute Assessment and Plan: CT scan of the abdomen showing fat stranding within the anterior pararenal space concerning for duodenitis with mural thickening of the second and third portions of the duodenum. Continue ceftriaxone and advance diet as tolerated. PPIs BID GI plan for EGD today (3) Sepsis Current Visit: Yes Status: Acute Assessment and Plan: Pt came in with leukocytosis and abdominal pain. Urine cultures growing klebsiella and CT abdomen showed duodenitis Continue ceftriaxone and IV fluids. WBC trending down (4) Alcoholic hepatitis Current Visit: Yes Status: Acute Assessment and Plan: Pt admits to consuming large amounts of alcohol and came in with acute hepatic failure with elevated liver enzymes Continue IV fluids. D/C steroids due to possibilty of duodenitis which may be s low to heal LFTS trending down. On CIWA protocol for withdrawal (5) C. difficile colitis Current Visit: Yes Status: Acute Assessment and Plan: Recent diagnosis of C. difficile colitis diagnosed on previous admission. CT scan of the abdomen showing near resolution of previous pancolitis findings Has history of recurrent c diff. Completed course of po vancomycin (6) Pancreatitis Current Visit: Yes Status: Acute Assessment and Plan: CT scan of the abdomen showing possible inflammation around the head of the pancreas in the setting of duodenitis. Lipase level 127. IV fluids, pain control. Advance diet as tolerated (7) Compression fracture of T6 vertebra Current Visit: Yes Status: Acute Assessment and Plan: Findings of acute versus subacute at the superior endplate of T6 possibly related to current presentation and reports a fall. Likely nonoperative Outpatient follow up with orthopedic surgery (8) COPD (chronic obstructive pulmonary disease) Current Visit: Yes Status: Chronic Assessment and Plan: Nebs PRN. No acute exacerbation (9) DVT prophylaxis Current Visit: Yes Status: Acute Assessment and Plan: Heparin sc - Time Spent with Patient Total time spent is greater than 50% in coordination of care (as documented) at patient's floor/unit and/or counseling patient: Internal Medicine: Result - Labs CBC & Chem 7: 06/13/19 06:12 06/13/19 06:12 Labs: Short CBC 06/13/19 Range/Units 06:12 WBC 11.9 H (4.3-11.1) K/mcL Hgb 9.4 L (11.5-15.4) g/dL Hct 29.0 L (35.3-44.9) % Plt Count 130 L (140-400) K/mcL Neutrophils # 9.9 H (1.6-8.9) K/mcL BMP 06/13/19 06:12 Sodium 133 L Potassium 3.6 Chloride 98 Carbon Dioxide 32 H BUN < 2 L Creatinine < 0.20 L Glucose 73 Calcium 7.3 L Liver Function 06/13/19 Range/Units 06:12 Total Bilirubin 0.7 (0.3-1.0) mg/dL AST 69 H (13-39) Units/L ALT 191 H (7-52) Units/L Alkaline Phosphatase 431 H (34-104) Units/L Albumin 2.6 L (3.5-5.7) g/dL - ABG Interpretation ABG results: PT/INR, D-dimer PT 13.1 Seconds (9.4-12.1) H 06/10/19 01:50 - Impressions Impressions Ankle X-Ray 06/12/19 14:33 IMPRESSION: 1. Osteopenia without convincing acute fracture of the left ankle. 2. Diffuse soft tissue swelling. D/ / Eh Damon MD / Eh Damon MD Interpreting Provider: Eh Damon MD Consult Discharge Plan - Plan Referrals: Terrie Joseph, SUPERANNUATION CLERK [Primary Care Provider] - (4) Alcoholic hepatitis Qualifiers: Qualified Code(s): K70.10 - Alcoholic hepatitis without ascites (6) Pancreatitis Qualifiers: Chronicity: acute Pancreatitis type: alcohol induced Acute pancreatitis complication: no infection or necrosis Qualified Code(s): K85.20 - Alcohol induced acute pancreatitis without necrosis or infection (7) Compression fracture of T6 vertebra Qualifiers: Encounter type: initial encounter Qualified Code(s): S22.050A - Wedge compression fracture of T5-T6 vertebra, initial encounter for closed fracture (8) COPD (chronic obstructive pulmonary disease) Qualifiers: Qualified Code(s): J44.9 - Chronic obstructive pulmonary disease, unspecified
--- NOTE | 2019-06-13 09:38 | Electrocardiograph Report ---
[employer] [employer] Test Date: 2019-06-09 Pat Name: Montserrat Rodriguez Department: EXAM2 Room: [facility] Gender: F Product Support Consultant: : 1960 Requested By: Irma oRyal Order Number: [id number] Reading MD: Jett Goel Measurements Intervals [place] Rate: 77 P: 78 [place]: 179 QRS: 78 QRSD: 91 T: 67 QT: 383 QTc: 434 Interpretive Statements Sinus rhythm Low voltage, precordial leads Electronically Signed On 06-13-2019 9:37:02 EDT by Jett Goel
--- NOTE | 2019-06-13 11:52 | Anesthesia Evaluation PreOp ---
Date of Encounter: 06/13/19 Time of Encounter: 13:55 - Past History Planned Operation: EGD Cardiac History: HTN Pulmonary History: Smoker, COPD ASSISTANT EDITOR History: Denies Any Significant HX Other Medical History: GERD Anesthesia History: No Prior Anesthetic Complications Alcohol Use: heavy, recent Drug use: none Medications and Allergies Escitalopram [Lexapro] 10 mg PO DAILY 12/30/17 [History] Cetirizine HCl [24Hour Allergy] 10 mg PO DAILY 09/14/18 [History] Mirtazapine 7.5 mg PO HS 12/08/18 [History] Tizanidine HCl 2 mg PO Q8H PRN 01/17/19 [History] Cholecalciferol (D-3) [Vitamin D] 1,000 unit PO DAILY #30 tablet 02/14/19 [Rx] Guaifenesin [Mucinex] 600 mg PO Q12H PRN 04/18/19 [History] HydrOXYzine [Atarax] 10 mg PO Q8H PRN 05/24/19 [History] Omeprazole [PriLOSEC] 40 mg PO BID 05/24/19 [History] Albuterol Sulfate [Proventil Inhaler] 2 puff IH Q2HR PRN #1 inhaler 05/28/19 [Rx] Budesonide/Formoterol 160/4.5 [Symbicort 160/4.5] 2 puff IH BIDR 30 Days #1 inh 05/28/19 [Rx] OxyCODONE/APAP 5/325 [Percocet 5/325 MG] 1 each PO Q6HR PRN 7 Days #28 tablet 05/28/19 [Rx] Vancomycin Oral Soln [Firvanq] 125 mg PO QID 26 Days #57 udc 05/28/19 [Rx] Gabapentin [Neurontin] 300 mg PO TID 06/11/19 [History] Nystatin [Nystatin Suspension] 5 ml PO QID 06/11/19 [History] PredniSONE [Deltasone] 10 mg PO AD 06/11/19 [History] traZODone [TraZODone] 50 mg PO HS 06/11/19 [History] Allergy/AdvReac Type Severity Reaction Status Date / Time No Known Allergies Allergy Verified 05/24/19 16:16 - Meds/Allergy Pre-op Review Medications Reviewed: Yes Allergies Reviewed: Yes Beta Blockers on Current Med List: No Anesthesia Results - Labs 06/13/19 06:12 06/13/19 06:12 Anesthesia Exam Selected Entries 06/13/19 08:12 Temperature 97.9 F Pulse Rate 66 Respiratory Rate 16 Blood Pressure 125/63 O2 Sat by Pulse Oximetry 96 Oxygen Flow Rate (LPM) 2.5 Oxygen Delivery Method Nasal Cannula Weight: 53kg - HEENT Pupil (Motor): EOMI Mallampati: II Teeth: Edentulous Oral Opening: Less than or equal to 3 - ASSISTANT EDITOR LOC: Oriented ASSISTANT EDITOR Motor: Normal RUE, Normal LUE, Normal RLE, Normal LLE, Normal Face ASSISTANT EDITOR Sensory: Normal: RUE, LUE, RLE, LLE, Face - Cardiac Rhythm: Regular Murmur: None - Pulmonary Breath Sounds: bilateral Clear Respiratory Effort: Symmetrical Anesthesia Assess/Plan ASA Score: 3 Level of consciousness: Cooperative, Oriented Anesthetic Plan: MAC Monitoring Plan: Standard Monitors (agrees to MAC) Recovery Plan: Other
[2019-06-13] MEDS ORDERED: Lidocaine -MPF 2% 2 ML VIAL ONE (13:27)
[2019-06-13] MEDS ORDERED: *HR* Propofol 200 MG/20 ML VIAL IVP ONE (13:27)
[2019-06-13] MEDS ORDERED: 0.9 % Sodium Chloride 500 ML IVC SCH (14:15)
[2019-06-13] MEDS: Albumin 25% 25gram/100mL 25 GM/100 ML IV.SOLN IVC SCH ×2 (15:55→18:04)
[2019-06-13] MEDS: Mirtazapine 15 MG TABLET PO SCH (22:02)
[2019-06-13] MEDS: traZODone 50 MG TABLET PO SCH (22:02)
[2019-06-14] MEDS: 0.9 % Sodium Chloride 1,000 ML IVC SCH (04:00)
[2019-06-14 05:05] LABS: Eosinophils # 0.2 K/mcL (0.0-0.6); Eosinophils % 2.3 %; Hematocrit 23.7 % (35.3-44.9); Immature Granulocytes % 0.4 % (0-4); Lymphocytes % 10.4 %; Mean Corpuscular HGB Conc 32.5 g/dL (31.6-35.5); Mean Corpuscular Hemoglobin 29.7 pg (28.0-33.3); Mean Corpuscular Volume 91.5 fL (83.0-100.0); Mean Platelet Volume 10.3 fL (9.4-12.4); Monocytes # 0.4 K/mcL (0.0-1.3); Monocytes % 4.2 %; Neutrophils # 8.2 K/mcL (1.6-8.9); Platelet Count 122 K/mcL (140-400); Red Blood Count 2.59 M/mcL (3.82-4.97); Red Cell Distribution Width 16.7 % (11.5-14.5); Segmented Neutrophils % 82.7 %; White Blood Count 9.9 K/mcL (4.3-11.1)
[2019-06-14 05:07] LABS: Hemoglobin 7.7 g/dL (11.5-15.4)
[2019-06-14 05:23] LABS: Alanine Aminotransferase 98 Units/L (7-52); Albumin/Globulin Ratio 1.7 (1.1-2.2); Alkaline Phosphatase 263 Units/L (34-104); Aspartate Amino Transferase 27 Units/L (13-39); Bilirubin,Total 0.5 mg/dL (0.3-1.0); Blood Urea Nitrogen < 2 mg/dL (8-23); Calcium 7.5 mg/dL (8.6-10.3); Carbon Dioxide 33 mEq/L (23-29); Chloride 98 mEq/L (98-107); Globulin 1.8 g/dL (2.4-3.5); Glucose 100 mg/dL (70-105); Magnesium 1.4 mg/dL (1.6-2.6); Phosphorous 3.4 mg/dL (2.7-4.5); Potassium 3.5 mEq/L (3.5-5.1); Sodium 137 mEq/L (136-145); Total Protein 4.8 g/dL (6.4-8.9); eGFR For African Americans > 60 (> 60); eGFR For Non-African Americans > 60 (> 60)
[2019-06-14] MEDS: *HR* Heparin 5,000 UNIT/ML VIAL SQ SCH ×2 (05:55→16:39)
[2019-06-14] MEDS: Pantoprazole 40 MG VIAL IVP SCH ×2 (05:55→16:39)
[2019-06-14] MEDS: *HR* OxyCODONE/APAP 5/325 TABLET PO PRN ×3 (08:22→20:24)
[2019-06-14] MEDS: Cholecalciferol (D-3) 1,000 UNIT (25MCG) TABLET PO SCH (08:22)
[2019-06-14] MEDS: Gabapentin 300 MG CAPSULE PO SCH ×3 (08:22→20:24)
[2019-06-14] MEDS: cefTRIAXone 1,000 MG in Water for inj. (sterile) 10 ML IVP SCH (08:22)
[2019-06-14] MEDS: Budesonide/Formoterol 160/4.5 1 PUFF INH IH SCH ×2 (10:39→19:41)
--- NOTE | 2019-06-14 12:10 | Pain Management Progress Note ---
Date of Encounter: 06/14/19 Time of Encounter: 12:10 - Assessment and Plan (1) Compression fracture of T6 vertebra Current Visit: Yes Status: Acute Patient has a compression fracture but a majority of her pain is located in the high lumbar spine. This appears to be chronic and intermittent based on history and I think the T6 compression fracture is incidental. The degenerative disc disease and old compression fractures at T11 and T12 and the resulting spinal stenosis is most likely the cause of chronic low back pain. This may been acutely exacerbated by the fall but structurally the patient appears to be unchanged. My recommendations are as follows: 1. thoracolumbar brace ordered from orthopedics 2. The patient is not a kyphoplasty candidate at this time 3. The patient would benefit from physical therapy and the patient will likely need pain control but the environment at home is concerning. Her history of alcohol abuse complicates the overall picture and therefore prescribing pain medication to facilitate physical therapy as an outpatient may result in somewhat of a safety issue. snf facility may be the best next step for the patient. This may be a short stay of a week to 2 weeks for recovery. 3. I can see the patient as an outpatient following a course of physical therapy. I also recommend following up with Terrie Joseph CNP Qualifiers: Encounter type: initial encounter Qualified Code(s): S22.050A - Wedge compression fracture of T5-T6 vertebra, initial encounter for closed fracture (2) Alcohol abuse Current Visit: Yes Status: Chronic The patient is a safety issue at home when pain medication is part of the planned care as an outpatient basis. History of alcohol abuse complicates the overall picture. Subjective Narrative: 59-year-old female with a known history of alcohol use on a chronic daily basis who lost her 11 years ago and has been having a hard time dealing with his loss. The patient recently fell and was admitted to the hospital for workup and found to have a compression fracture at T6. She was also found to have other compression deformities that visually looked chronic. Patient's been in the hospital since then on DT precautions. She has made not a lot of progress with respect to physical therapy. Complains of low back pain with no radiation. Reports no loss of bowel or bladder control, reports no weakness in the legs. Patient reports major challenges low back pain as she describes it as intermittent and not constant. Patient does not recall losing consciousness and states she remembers the whole event. She has had a history of long-standing low back pain and has home based physical therapy already ordered as an outpatient by her family doctor. Objective Vital Signs - Last 8 Hours Temp Pulse Resp BP Pulse Ox 06/14/19 10:40 16 93 06/14/19 07:52 99.7 F H 116 18 160/81 93 06/14/19 05:43 98.3 F 115 14 165/81 95 Intake and Output 06/13/19 06/14/19 06/14/19 23:59 07:59 15:59 Intake Total 460 / 2570 1120 / 3961.2 2841.2 / 3961.2 Output Total 1000 / 1000 Balance 460 / 2270 120 / 2961.2 2841.2 / 2961.2 Intake: IV Fluids 100 / 2210 1000 / 3481.2 2481.2 / 3481.2 0.9 % Sodium Chloride 1,000 ML 1000 / 2400 1400 / 2400 @ 125 mls/hr IVC .Q8H [facility] Rx#: [id number] Flexbumin 25 gm In 100 ml @ 60 100 / 100 100 / 100 mls/hr IVC .Q1H40M [facility] Rx#: [id number] Rocephin 1,000 MG In Water for inj. (sterile) 10 ML @ 600 mls/ hr IVP DAILY [facility] Rx#:[id number] Calcium Gluconate 1gm/50mL 1 gm 50 / 50 In 50 ml @ 100 mls/hr IVPB ONCE ONE Rx#:[id number] Magnesium Sulfate Premix 2gm/ 50 / 50 50mL 2 gm In 50 ml @ 50 mls/hr IVPB .Q1H [facility] Rx#:[id number] Zosyn 3.375 GM In 0.9 % Sodium 100 / 100 Chloride (Mini-Bag +) 100 ML @ 25 mls/hr IVPB Q8HR [facility] Rx#: [id number] Potassium Phosphate 44 MEQ In 0 260 / 260 .9 % Sodium Chloride 250 ML @ 57.778 mls/hr IVPB ONCE ONE Rx# :[id number] Vitamin B-1 100 MG Folvite 1 MG 511.2 / 511.2 M.v.i. Adult 10 ml In 0.9 % Sodium Chloride 500 ML @ 85.2 mls/hr IVPB DAILY@1800 [facility] Rx#: [id number] Oral 360 / 360 120 / 480 360 / 480 Output: Urine 0 / 0 Catheter 1000 / 1000 Other: Meal Dinner Breakfast Percent of Meal Consumed 50% 0% Stool Size Large Stool Consistency loose Stool Color Brown Black # Urine Diapers 1 # Bowel Movement Diapers 1 Weight 52.8 kg Patient Weight 06/14/19 23:59 Weight 52.8 kg - General physical appearance moderate pain, severe pain - Eyes PERRL, normal ocular movement - Neck Neck exam: other (Exaggerated cervical lordosis) - Respiratory normal respiratory effort - Cardiovascular Cardiovascular exam: Present: RRR, NR - Integumentary no rash, no growths, no abnormal pigmentation - Neurologic CN 2-12 grossly intact, other (Normal memory and recall) - Musculoskeletal other (Moderate kyphosis, no tenderness to palpation overlying the mid thoracic region) - Psychiatric oriented to time, oriented to person, oriented to place - Labs 06/14/19 04:44 06/14/19 04:44 Diabetes panel 06/14/19 Range/Units 04:44 Sodium 137 (136-145) mEq/L Potassium 3.5 (3.5-5.1) mEq/L Chloride 98 (98-107) mEq/L Carbon Dioxide 33 H (23-29) mEq/L BUN < 2 L (8-23) mg/dL Creatinine 0.21 L (0.60-1.20) mg/dL Glucose 100 (70-105) mg/dL Calcium 7.5 L (8.6-10.3) mg/dL AST 27 (13-39) Units/L ALT 98 H (7-52) Units/L Alkaline Phosphatase 263 H (34-104) Units/L Albumin 3.0 L (3.5-5.7) g/dL Calcium panel 06/14/19 Range/Units 04:44 Calcium 7.5 L (8.6-10.3) mg/dL Phosphorus 3.4 (2.7-4.5) mg/dL Albumin 3.0 L (3.5-5.7) g/dL Pituitary panel 06/14/19 Range/Units 04:44 Sodium 137 (136-145) mEq/L Potassium 3.5 (3.5-5.1) mEq/L Chloride 98 (98-107) mEq/L Carbon Dioxide 33 H (23-29) mEq/L BUN < 2 L (8-23) mg/dL Creatinine 0.21 L (0.60-1.20) mg/dL Glucose 100 (70-105) mg/dL Calcium 7.5 L (8.6-10.3) mg/dL Adrenal panel 06/14/19 Range/Units 04:44 Sodium 137 (136-145) mEq/L Potassium 3.5 (3.5-5.1) mEq/L Chloride 98 (98-107) mEq/L Carbon Dioxide 33 H (23-29) mEq/L BUN < 2 L (8-23) mg/dL Creatinine 0.21 L (0.60-1.20) mg/dL Glucose 100 (70-105) mg/dL Calcium 7.5 L (8.6-10.3) mg/dL Total Bilirubin 0.5 (0.3-1.0) mg/dL AST 27 (13-39) Units/L ALT 98 H (7-52) Units/L Alkaline Phosphatase 263 H (34-104) Units/L Albumin 3.0 L (3.5-5.7) g/dL - Imaging Additional Studies: I reviewed the CT of the thoracic and lumbar spine: Per report: IMPRESSION: No acute intracranial abnormality. Degenerative changes. No acute abnormality in the cervical spine. Acute to subacute compression fracture at the superior endplate of T6, with 25% height loss, new since March 03, 2019. Chronic compression deformities of T11 and T12, stable. No evidence of acute traumatic injury of the lumbar spine. Mild to moderate spinal canal narrowing at T11-12, secondary to retropulsion of posterior cortex of T12, stable. Increased interstitial lung markings, likely related to chronic lung changes. Superimposed inflammatory changes cannot be excluded. Consult Discharge Plan - Plan Referrals: Terrie Joseph, PRODUCT MANAGENT INTERN [Primary Care Provider] -
[2019-06-14] MEDS ORDERED: Furosemide 20 MG/2 ML VIAL IVP ONE (13:06)
--- NOTE | 2019-06-14 13:16 | Internal Med Progress Note ---
Hospitalist Progress Note - Encounter Date of Encounter: 06/14/19 Time of Encounter: 10:45 - Subjective Interval History: Patient was seen this morning, she complained about her back and diffuse pain. She denied nausea or vomiting. She had no appetite to eat. - Exam Vitals: Temp Pulse Resp BP Pulse Ox 99.7 F H 116 16 160/81 93 06/14/19 07:52 06/14/19 07:52 06/14/19 10:40 06/14/19 07:52 06/14/19 10:40 Exam: General: Alert and oriented 3. Cachectic elderly female Skin:Normal color, no rash, no lesions. HEENT:EOM, pupils equal, round and reactive. Cardiovascular:Normal S1 & S2, no rubs, murmurs or gallops. No JVD. Pulse regular. Lungs:bilateral crackles Abdomen:Soft, right upper quadrant tenderness Extremities:No deformity, no edema or tenderness, no joint swelling or clubbing. Neurological: No apparent neurological deficits.Alert and oriented 3 Pulses:Carotid and radial pulses normal +2. - Assessment and Plan (1) Acute encephalopathy Current Visit: Yes Status: Resolved (2) Duodenitis Current Visit: Yes Status: Acute (3) Sepsis Current Visit: Yes Status: Acute (4) Alcoholic hepatitis Current Visit: Yes Status: Acute (5) C. difficile colitis Current Visit: Yes Status: Resolved (6) Pancreatitis Current Visit: Yes Status: Resolved (7) Compression fracture of T6 vertebra Current Visit: Yes Status: Acute (8) COPD (chronic obstructive pulmonary disease) Current Visit: Yes Status: Chronic (9) DVT prophylaxis Current Visit: Yes Status: Acute - Summary of Assessment and Plan Summary of Assessment and Plan: Ms. Rodriguez is a 59 year old female with PMH of COPD on 3L at home and current smoker of 2PPD, GERD, hypertension, liver disease, thyroid disease, TIA and alcohol abuse who came into the hospital status post fall and encephalopathy. Her symptoms were managed as following: Sepsis: Patient had 3/4 criteria, urine cultures positive for Klebsiella pneumonia. Leukocytosis resolved. We switch Rocephin to Zosyn given concern of aspiration. Acute hypoxic respiratory failure: 2/2 above and possible fluid overload from IVF. Total I/O +13L. CXR with findings of pulmonary congestion. Stop the fluids and give one dose of lasix. Will proceed with CT chest to r/u PNA vs aspiration given THAT she had EGD yesterday. Etoh hepatitis: LFT trending down, not a candidate for steroids given her acute infection. Consulted to quit drinking Acute compression fracture: 2/2 full at home, CT with finding of T6 acute fracture, pain management consult and patient will get a brace. Not a candidate for intervention at this point. PT/OT consult Duodenitis: Found on CT abdomen, EGD with no finding of ulcers, biopsies are pending. Anemia: Hemoglobin 7.7, appears close to her baseline. Her normal hemoglobin at presentation was likely due to dehydration and hemoconcentration. Hypomagnesemia: Was repeated, check levels tomorrow COPD: On 3L at home as per social director, now on 2L. Etoh pancreatitis: Resolved, patient tolerating oral intake Etoh abuse: On CIWA prtocol, scored 0 multiple times, will stop it. Acute encephalopathy: Toxic versus septic. Resolved DVT prophylaxis: Subcutaneous heparin - Time Spent with Patient Total time spent is greater than 50% in coordination of care (as documented) at patient's floor/unit and/or counseling patient: Plan of Care Discussed with: patient Internal Medicine: Result - Labs CBC & Chem 7: 06/14/19 04:44 06/14/19 04:44 Labs: Short CBC 06/14/19 Range/Units 04:44 WBC 9.9 (4.3-11.1) K/mcL Hgb 7.7 L D (11.5-15.4) g/dL Hct 23.7 L (35.3-44.9) % Plt Count 122 L (140-400) K/mcL Neutrophils # 8.2 (1.6-8.9) K/mcL BMP 06/14/19 04:44 Sodium 137 Potassium 3.5 Chloride 98 Carbon Dioxide 33 H BUN < 2 L Creatinine 0.21 L Glucose 100 Calcium 7.5 L Liver Function 06/14/19 Range/Units 04:44 Total Bilirubin 0.5 (0.3-1.0) mg/dL AST 27 (13-39) Units/L ALT 98 H (7-52) Units/L Alkaline Phosphatase 263 H (34-104) Units/L Albumin 3.0 L (3.5-5.7) g/dL - ABG Interpretation ABG results: PT/INR, D-dimer PT 13.1 Seconds (9.4-12.1) H 06/10/19 01:50 - Impressions Impressions Chest X-Ray 06/14/19 11:02 IMPRESSION: 1. Findings of pulmonary edema with new small bilateral pleural effusions and pulmonary vascular indistinctness. 2. Mild bibasilar atelectasis. D/ / 06/14/2019 11:46:09 Quinn Langford MD / [email or web address] Interpreting Provider: Quinn Langford MD Consult Discharge Plan - Plan Referrals: Terrie Joseph PLATER APPRENTICE [Primary Care Provider] - (3) Sepsis Qualifiers: Sepsis type: sepsis due to unspecified organism Sepsis acute organ dy sfunction status: with acute organ dysfunction Severe sepsis acute organ d ysfunction type: acute respiratory failure Acute respiratory failure type: with hypoxia Severe sepsis shock status: without septic shock Qualified Code(s): A41.9 - Sepsis, unspecified organism; R65.20 - Severe sepsis without septic shock; J96.01 - Acute respiratory failure with hypoxia (4) Alcoholic hepatitis Qualifiers: Qualified Code(s): K70.10 - Alcoholic hepatitis without ascites (6) Pancreatitis Qualifiers: Chronicity: acute Pancreatitis type: alcohol induced Acute pancreatitis complication: no infection or necrosis Qualified Code(s): K85.20 - Alcohol induced acute pancreatitis without necrosis or infection (7) Compression fracture of T6 vertebra Qualifiers: Encounter type: initial encounter Qualified Code(s): S22.050A - Wedge compression fracture of T5-T6 vertebra, initial encounter for closed fracture (8) COPD (chronic obstructive pulmonary disease) Qualifiers: Qualified Code(s): J44.9 - Chronic obstructive pulmonary disease, unspecified
[2019-06-14] MEDS: tiZANidine 4 MG TABLET PO PRN (13:40)
[2019-06-14] MEDS ORDERED: Piperacillin/Tazobactam 3.375 GM in 0.9 % Sodium Chloride Mini Bag 100 ML IVPB SCH (16:00)
[2019-06-14] MEDS: Piperacillin/Tazobactam 3.375 GM in 0.9 % Sodium Chloride Mini Bag 100 ML IVPB SCH ×2 (16:39→23:25)
[2019-06-14] MEDS: Mirtazapine 15 MG TABLET PO SCH (20:24)
[2019-06-14] MEDS: traZODone 50 MG TABLET PO SCH (20:25)
[2019-06-15 01:54] LABS: Basophils % 0.1 %; Eosinophils # 0.2 K/mcL (0.0-0.6); Eosinophils % 1.8 %; Hematocrit 21.7 % (35.3-44.9); Immature Granulocytes % 0.3 % (0-4); Mean Corpuscular HGB Conc 32.3 g/dL (31.6-35.5); Mean Corpuscular Hemoglobin 29.7 pg (28.0-33.3); Mean Corpuscular Volume 91.9 fL (83.0-100.0); Monocytes # 0.6 K/mcL (0.0-1.3); Monocytes % 5.7 %; Platelet Count 122 K/mcL (140-400); Red Blood Count 2.36 M/mcL (3.82-4.97); Red Cell Distribution Width 16.5 % (11.5-14.5); Segmented Neutrophils % 82.1 %; White Blood Count 9.7 K/mcL (4.3-11.1)
[2019-06-15 02:17] LABS: Alanine Aminotransferase 80 Units/L (7-52); Albumin 2.9 g/dL (3.5-5.7); Albumin/Globulin Ratio 1.6 (1.1-2.2); Alkaline Phosphatase 232 Units/L (34-104); Aspartate Amino Transferase 26 Units/L (13-39); BUN/Creatinine Ratio 5 (6-26); Bilirubin,Total 0.4 mg/dL (0.3-1.0); Blood Urea Nitrogen 2 mg/dL (8-23); Calcium 7.2 mg/dL (8.6-10.3); Carbon Dioxide 33 mEq/L (23-29); Chloride 95 mEq/L (98-107); Globulin 1.8 g/dL (2.4-3.5); Glucose 142 mg/dL (70-105); Magnesium 1.9 mg/dL (1.6-2.6); Osmolality,Calculated 277 (280-300); Phosphorous 2.9 mg/dL (2.7-4.5); Potassium 3.6 mEq/L (3.5-5.1); Sodium 134 mEq/L (136-145); Total Protein 4.7 g/dL (6.4-8.9); eGFR For African Americans > 60 (> 60); eGFR For Non-African Americans > 60 (> 60)
[2019-06-15] MEDS: *HR* Heparin 5,000 UNIT/ML VIAL SQ SCH (05:27)
[2019-06-15] MEDS: Pantoprazole 40 MG VIAL IVP SCH ×2 (05:27→17:43)
[2019-06-15] MEDS: Budesonide/Formoterol 160/4.5 1 PUFF INH IH SCH ×2 (07:38→22:50)
[2019-06-15] MEDS ORDERED: cefTRIAXone 1,000 MG in Water for inj. (sterile) 10 ML IVP SCH (09:00)
[2019-06-15] MEDS: Gabapentin 300 MG CAPSULE PO SCH ×3 (09:22→22:21)
[2019-06-15] MEDS: Piperacillin/Tazobactam 3.375 GM in 0.9 % Sodium Chloride Mini Bag 100 ML IVPB SCH ×2 (09:22→15:36)
[2019-06-15] MEDS: Cholecalciferol (D-3) 1,000 UNIT (25MCG) TABLET PO SCH (09:22)
[2019-06-15] MEDS: *HR* OxyCODONE/APAP 5/325 TABLET PO PRN ×3 (09:27→22:21)
--- NOTE | 2019-06-15 11:57 | Internal Med Progress Note ---
Hospitalist Progress Note - Encounter Date of Encounter: 06/15/19 Time of Encounter: 08:45 - Subjective Interval History: Patient was seen this morning. She feels better and her pain is under better control. She denied any chest pain, or palpitation. She had no nausea/vomiting or abdominal pain. - Exam Vitals: Temp Pulse Resp BP Pulse Ox 99.8 F H 101 18 121/59 92 06/15/19 07:47 06/15/19 07:47 06/15/19 07:47 06/15/19 07:47 06/15/19 07:47 Exam: General: Alert and oriented 3. Cachectic elderly female Skin:Normal color, no rash, no lesions. HEENT:EOM, pupils equal, round and reactive. Cardiovascular:Normal S1 & S2, no rubs, murmurs or gallops. No JVD. Pulse regular. Lungs:bilateral crackles Abdomen:Soft, right upper quadrant tenderness Extremities:No deformity, no edema or tenderness, no joint swelling or clubbing. Neurological: No apparent neurological deficits.Alert and oriented 3 Pulses:Carotid and radial pulses normal +2. - Assessment and Plan (1) Acute encephalopathy Current Visit: Yes Status: Resolved (2) Duodenitis Current Visit: Yes Status: Resolved (3) Alcoholic hepatitis Current Visit: Yes Status: Resolved (4) Pancreatitis Current Visit: Yes Status: Resolved (5) Compression fracture of T6 vertebra Current Visit: Yes Status: Acute (6) COPD (chronic obstructive pulmonary disease) Current Visit: Yes Status: Chronic (7) DVT prophylaxis Current Visit: Yes Status: Acute (8) Sepsis with acute hypoxic respiratory failure Current Visit: Yes Status: Acute (9) Hospital-acquired pneumonia Current Visit: Yes Status: Acute - Summary of Assessment and Plan Summary of Assessment and Plan: Ms. Rodriguez is a 59 year old female with PMH of COPD on 3L at home and current smoker of 2PPD, GERD, hypertension, liver disease, thyroid disease, TIA and alcohol abuse who came into the hospital status post fall and encephalopathy. Her symptoms were managed as following: Sepsis: Patient had 3/4 criteria, urine cultures positive for Klebsiella pneumonia. Leukocytosis resolved. CT scan revealed new patchy infiltrates concerning for pneumonia. Patient was febrile this morning and her MRSA swab was positive. Will start the patient on Zosyn and vancomycin day 09/19. Check sputum cultures. HAP: as above. Acute hypoxic respiratory failure: 2/2 above and possible fluid overload from IVF. Etoh hepatitis: LFT trending down, not a candidate for steroids given her acute infection. Consulted to quit drinking Acute compression fracture: 2/2 fall at home, CT with finding of T6 acute fracture, pain management consult and patient will get a brace. Not a candidate for intervention at this point. PT/OT consult Duodenitis: Found on CT abdomen, EGD with no finding of ulcers, biopsies are pending. Anemia: Hemoglobin 7.0 from 7.7 yesterday. Recent EGD without bleeding. Check stool blood. Type and screen for tomorrow. Check Ferritin, iron profile, folic acid and b12. reconsult GI. COPD: On 3L at home as per long term care social worker, now on 2L. Etoh pancreatitis: Resolved, patient tolerating oral intake Etoh abuse: DC CIWA prtocol. Acute encephalopathy: Toxic versus septic. Resolved DVT prophylaxis: SCD I reviewed independently all laboratory workup, pertinent images including x- rays and CT scans. I also reviewed independently and EKGs and my findings are in the body of my assessment and plan. I ordered the laboratory workup and images myself. I discussed finding with patient's, their families, RN's and consultants involved in the care of the patient. - Time Spent with Patient Total time spent is greater than 50% in coordination of care (as documented) at patient's floor/unit and/or counseling patient: Plan of Care Discussed with: patient Internal Medicine: Result - Labs CBC & Chem 7: 06/15/19 01:39 06/15/19 01:39 Labs: Short CBC 06/15/19 Range/Units 01:39 WBC 9.7 (4.3-11.1) K/mcL Hgb 7.0 L (11.5-15.4) g/dL Hct 21.7 L (35.3-44.9) % Plt Count 122 L (140-400) K/mcL Neutrophils # 8.0 (1.6-8.9) K/mcL BMP 06/15/19 01:39 Sodium 134 L Potassium 3.6 Chloride 95 L Carbon Dioxide 33 H BUN 2 L Creatinine 0.37 L Glucose 142 H Calcium 7.2 L Liver Function 06/15/19 Range/Units 01:39 Total Bilirubin 0.4 (0.3-1.0) mg/dL AST 26 (13-39) Units/L ALT 80 H (7-52) Units/L Alkaline Phosphatase 232 H (34-104) Units/L Albumin 2.9 L (3.5-5.7) g/dL - ABG Interpretation ABG results: PT/INR, D-dimer PT 13.1 Seconds (9.4-12.1) H 06/10/19 01:50 - Impressions Impressions Chest CT 06/14/19 14:34 IMPRESSION: Evidence of patchy infiltrates worse in the right upper and left lower lobes as well as bronchiectatic changes with peribronchial thickening in both lower lobes, more pronounced compared with the previous evaluation. Small bilateral pleural effusions and lower lobe atelectatic changes. Borderline mediastinal lymphadenopathy. D/ / 06/14/2019 15:27:24 Christi Hutchinson MD / monica Interpreting Provider: Christi Hutchinson MD Consult Discharge Plan - Plan Referrals: Terrie Joseph, CLINICAL INFORMATICS SPEC [Primary Care Provider] - (3) Alcoholic hepatitis Qualifiers: Qualified Code(s): K70.10 - Alcoholic hepatitis without ascites (4) Pancreatitis Qualifiers: Chronicity: acute Pancreatitis type: alcohol induced Acute pancreatitis complication: no infection or necrosis Qualified Code(s): K85.20 - Alcohol induced acute pancreatitis without necrosis or infection (5) Compression fracture of T6 vertebra Qualifiers: Encounter type: initial encounter Qualified Code(s): S22.050A - Wedge compression fracture of T5-T6 vertebra, initial encounter for closed fracture (6) COPD (chronic obstructive pulmonary disease) Qualifiers: Qualified Code(s): J44.9 - Chronic obstructive pulmonary disease, unspecified (8) Sepsis with acute hypoxic respiratory failure Qualifiers: Sepsis type: sepsis due to unspecified organism Severe sepsis shock status: without septic shock Qualified Code(s): A41.9 - Sepsis, unspecified organism; R65.20 - Severe sepsis without septic shock; J96.01 - Acute respiratory failure with hypoxia
[2019-06-15] MEDS: Mirtazapine 15 MG TABLET PO SCH (22:21)
[2019-06-15] MEDS: traZODone 50 MG TABLET PO SCH (22:21)
[2019-06-16] MEDS: Piperacillin/Tazobactam 3.375 GM in 0.9 % Sodium Chloride Mini Bag 100 ML IVPB SCH ×3 (00:11→16:56)
[2019-06-16 04:51] LABS: Basophils % 0.1 %; Eosinophils # 0.2 K/mcL (0.0-0.6); Eosinophils % 2.1 %; Hemoglobin 6.7 g/dL (11.5-15.4); Immature Granulocytes % 0.4 % (0-4); Mean Corpuscular HGB Conc 31.9 g/dL (31.6-35.5); Mean Corpuscular Hemoglobin 30.2 pg (28.0-33.3); Mean Corpuscular Volume 94.6 fL (83.0-100.0); Mean Platelet Volume 10.5 fL (9.4-12.4); Monocytes # 0.6 K/mcL (0.0-1.3); Monocytes % 6.1 %; Neutrophils # 7.5 K/mcL (1.6-8.9); Platelet Count 137 K/mcL (140-400); Red Blood Count 2.22 M/mcL (3.82-4.97); Red Cell Distribution Width 16.8 % (11.5-14.5); Segmented Neutrophils % 80.3 %; White Blood Count 9.3 K/mcL (4.3-11.1)
[2019-06-16 05:09] LABS: Alanine Aminotransferase 56 Units/L (7-52); Albumin 2.6 g/dL (3.5-5.7); Albumin/Globulin Ratio 1.2 (1.1-2.2); Alkaline Phosphatase 200 Units/L (34-104); Aspartate Amino Transferase 17 Units/L (13-39); BUN/Creatinine Ratio 10 (6-26); Bilirubin,Total 0.3 mg/dL (0.3-1.0); Blood Urea Nitrogen 3 mg/dL (8-23); Calcium 7.6 mg/dL (8.6-10.3); Carbon Dioxide 37 mEq/L (23-29); Chloride 95 mEq/L (98-107); Globulin 2.2 g/dL (2.4-3.5); Glucose 140 mg/dL (70-105); Magnesium 1.4 mg/dL (1.6-2.6); Osmolality,Calculated 279 (280-300); Phosphorous 2.6 mg/dL (2.7-4.5); Potassium 3.5 mEq/L (3.5-5.1); Sodium 135 mEq/L (136-145); Total Protein 4.8 g/dL (6.4-8.9); eGFR For African Americans > 60 (> 60); eGFR For Non-African Americans > 60 (> 60)
[2019-06-16 05:10] LABS: % Iron Saturation 13 % (15-50); Iron 21 mcg/dL (50-170); Transferrin 117 mg/dL (203-362)
[2019-06-16] MEDS: Pantoprazole 40 MG VIAL IVP SCH ×2 (05:13→19:03)
[2019-06-16 05:30] LABS: Ferritin 399 ng/mL (10-120)
[2019-06-16 05:35] LABS: Folate 12.5 ng/mL (3.0-16.0)
[2019-06-16] MEDS ORDERED: 0.9 % Sodium Chloride 500 ML ONE (06:57)
[2019-06-16] MEDS: *HR* OxyCODONE/APAP 5/325 TABLET PO PRN ×3 (07:25→20:17)
[2019-06-16] MEDS: Budesonide/Formoterol 160/4.5 1 PUFF INH IH SCH ×2 (07:29→19:47)
[2019-06-16] MEDS ORDERED: Potassium Phosphate 44 MEQ in 0.9 % Sodium Chloride 250 ML IVPB ONE (07:39)
[2019-06-16] MEDS: Gabapentin 300 MG CAPSULE PO SCH ×3 (08:33→20:17)
[2019-06-16] MEDS: Cholecalciferol (D-3) 1,000 UNIT (25MCG) TABLET PO SCH (08:33)
--- NOTE | 2019-06-16 08:59 | Gastroenterology Progress Note ---
Date of Encounter: 06/16/19 Time of Encounter: 11:00 - Assessment and plan (1) Anemia Current Visit: No Status: Chronic Assessment and plan: -Patient's hemoglobin has been trending down from a 11.6 and admission to 6.7as of today. -Iron panel showed low serum iron: 21, low % sat: 21, low transferrin 17 and increased ferritin :117 (could likely be acute phase reactant -Her EGD from few days ago was negative for any GI bleed -To the best of our knowledge patient has not had a colonoscopy before PLAN: - stared on IV iron - NPO wednesday night - Bowel regimen in place for colonoscopy on Wednesday Qualifiers: Anemia type: unspecified type Qualified Code(s): D64.9 - Anemia, unspecified (2) Alcoholic hepatitis Current Visit: Yes Status: Resolved Assessment and plan: - Patient has a Hx of Alcohol abuse. Her last drink was a day before she was brought to the ED secondary to fall. - Workup in the ED showed elevated transaminases with AST: 868, ALT: 407, Alk Phos: 380 - Her Maddrey's Score was 39.6, [place] Alcoholic Hepatitis Score : 9 and MELD score was 39 -She underwent CT Abdomen without contrast which showed fat stranding in the anteror pararenal space with concerns for Duodenitis - Patient was givena dose of methylprednisolone was was discontinued because of history of duodenitis -Her transaminases have been trending down with the most recent value being AST: 17, ALT:56, alk phos 200. - vocational counselor of alcohol abstinence and nutritional support . PPI for GI prophylaxis Qualifiers: Qualified Code(s): K70.10 - Alcoholic hepatitis without ascites (3) Duodenitis Current Visit: Yes Status: Resolved Assessment and plan: Patient's CT abdomen pelvis without contrast showed fat stranding within the anterior pararenal space most likely secondary to duodenitis with mural thickening of the second and third portion of the duodenum -Patient was given Ceftriaxone and Flagyl in the ED - Patient had an EGD done on 06/13/19 showed a localized mild inflammation characterized by edema , erythema and friability in the prepyloric region of the stomach-biopsy was negative for H. pylori - Time Spent With Patient Total time spent is greater than 50% in coordination of care (as documented) at patient's floor/unit and/or counseling patient: - Subjective Interval history: Vision toe was seen and examined at the bedside. She endorses no acute distress. Agents and hemoglobin has been down trending from a 11.6 on admission to 6.7. She was being transfused with 1 unit of packed red blood cells last saw her this morning. She denies any dose, night sweats, chest pain, shortness of breath or palpitation - Constitutional Vitals: Temp Pulse Resp BP Pulse Ox 98.6 F 97 16 159/79 94 06/16/19 08:25 06/16/19 08:25 06/16/19 08:25 06/16/19 08:25 06/16/19 08:25 Exam: Gen.: Vitals noted. No acute distress. Alert, awake and oriented * [address], and time, well developed, well-nourished resting comfortably in bed. Pleasant. HEENT: oropharynx clear, Normocephalic, atraumatic, MMM Neck: supple, no JVD, no lymphadenopathy, no carotid bruit. Cardiac: RRR, no murmur, +S1/S2, No BLE edema, PMI non-displaced Pulmonary: b/l crackles Abdomen: soft, nontender, BS noted, no guarding, undistended. No organomegaly, no pulsatile masses, Skin: warm and dry, no visible lesions. Feels warm, clammy, no rashes, no lesions, no erythema MSK: ROM not assessed. no joint swelling noted, gait not assessed while in bed. Non tender calf or clubbing, no cyanosis/clubbing/ or edema Neuro: A&O, moves all extremities, no focal deficits, sensation intact Psych: Appropriate mood and behavior, normal speech. Results - Labs CBC & Chem 7: 06/16/19 13:31 06/16/19 04:00 Labs: Last Result 06/16/19 06/16/19 06/16/19 04:00 04:00 04:00 Calcium 7.6 L Iron 21 L % Saturation 13 L Transferrin 117 L Ferritin 399 H Vitamin B12 397 Folate 12.5 Entire Visit 06/16/19 06/16/19 06/16/19 04:00 04:00 04:00 Hgb 6.7 L Hct 21.0 L Ferritin Total Bilirubin 0.3 AST 17 ALT 56 H Folate 12.5 06/16/19 04:00 Hgb Hct Ferritin 399 H Total Bilirubin AST ALT Folate - ABG ABG results: PT/INR, D-dimer PT 13.1 Seconds (9.4-12.1) H 06/10/19 01:50 - VTE Documentation of Mechanical Device: Intermittent pneumatic compression device Consult Discharge Plan - Plan Referrals: Terrie Joseph, MANAGER WIND [Primary Care Provider] -
[2019-06-16] MEDS: Iron Sucrose Complex 250 MG in 0.9 % Sodium Chloride 250 ML IVPB SCH (11:24)
--- NOTE | 2019-06-16 11:41 | Internal Med Progress Note ---
Hospitalist Progress Note - Encounter Date of Encounter: 06/16/19 Time of Encounter: 08:40 - Subjective Interval History: No major events overnight. Patient was seen this a.m. sHe denied fever, chills or night sweats. sHe has no nausea, vomiting or abdominal pain. Patient denied chest pain, shortness of breath or palpitation. - Exam Vitals: Temp Pulse Resp BP Pulse Ox 98.6 F 82 16 158/85 100 06/16/19 11:20 06/16/19 11:20 06/16/19 11:20 06/16/19 11:20 06/16/19 11:20 Exam: General: Alert and oriented 3. Cachectic elderly female Skin:Normal color, no rash, no lesions. HEENT:EOM, pupils equal, round and reactive. Cardiovascular:Normal S1 & S2, no rubs, murmurs or gallops. No JVD. Pulse regular. Lungs:bilateral crackles Abdomen:Soft, right upper quadrant tenderness Extremities:No deformity, no edema or tenderness, no joint swelling or clubbing. Neurological: No apparent neurological deficits.Alert and oriented 3 Pulses:Carotid and radial pulses normal +2. - Assessment and Plan (1) Acute encephalopathy Current Visit: Yes Status: Resolved (2) Duodenitis Current Visit: Yes Status: Resolved (3) Alcoholic hepatitis Current Visit: Yes Status: Resolved (4) Pancreatitis Current Visit: Yes Status: Resolved (5) Compression fracture of T6 vertebra Current Visit: Yes Status: Acute (6) COPD (chronic obstructive pulmonary disease) Current Visit: Yes Status: Chronic (7) DVT prophylaxis Current Visit: Yes Status: Acute (8) Hospital-acquired pneumonia Current Visit: Yes Status: Acute (9) Sepsis Current Visit: Yes Status: Acute - Summary of Assessment and Plan Summary of Assessment and Plan: Ms. Rodriguez is a 59 year old female with PMH of COPD on 3L at home and current smoker of 2PPD, GERD, hypertension, liver disease, thyroid disease, TIA and alcohol abuse who came into the hospital status post fall and encephalopathy. Her symptoms were managed as following: Sepsis: Patient had 3/4 criteria, urine cultures positive for Klebsiella pne umonia. Leukocytosis resolved. CT scan 06/14 revealed new patchy infiltrates concerning for pneumonia. Patient is afebrile, has no leukocytosis, hemodynamically stable. Her MRSA swab was positive. Continue renally dosed Zosyn and vancomycin day 10/20. Check sputum cultures. HAP: as above. Anemia: Hemoglobin 6.7 from 7.0 yesterday. Recent EGD without bleeding. 1PRBC given, pending H/H. Iron profile is low, likely dietary more than chronic bleed. Start on IV iron 09/17. GI reconsulted and planning for colonoscopy on Wednesday. B12 is borderline low and started on supplementation. Hypomagnesemia and hypophosphatemia: New Events, repeated, check levels tomorrow. Chronic hypoxic respiratory failure: / above. Etoh hepatitis: LFT trending down, not a candidate for steroids given her acute infection. Consulted to quit drinking Acute compression fracture: 10/15 fall at home, CT with finding of T6 acute fracture, pain management consult and patient will get a brace. Not a candidate for intervention at this point. PT/OT consult Duodenitis: Found on CT abdomen, EGD with no finding of ulcers, biopsies are pending. COPD: On 3L at home as per social service manager, now on 2L. Etoh pancreatitis: Resolved, patient tolerating oral intake Etoh abuse: DC CIWA prtocol. Acute encephalopathy: Toxic versus septic. Resolved DVT prophylaxis: SCD I reviewed independently all laboratory workup, pertinent images including x- rays and CT scans. I also reviewed independently and EKGs and my findings are in the body of my assessment and plan. I ordered the laboratory workup and images myself. I discussed finding with patient's, their families, RN's and consultants involved in the care of the patient. - Time Spent with Patient Total time spent is greater than 50% in coordination of care (as documented) at patient's floor/unit and/or counseling patient: Plan of Care Discussed with: patient Internal Medicine: Result - Labs CBC & Chem 7: 06/16/19 04:00 06/16/19 04:00 Labs: Short CBC 06/16/19 Range/Units 04:00 WBC 9.3 (4.3-11.1) K/mcL Hgb 6.7 L (11.5-15.4) g/dL Hct 21.0 L (35.3-44.9) % Plt Count 137 L (140-400) K/mcL Neutrophils # 7.5 (1.6-8.9) K/mcL BMP 06/16/19 04:00 Sodium 135 L Potassium 3.5 Chloride 95 L Carbon Dioxide 37 H BUN 3 L Creatinine 0.29 L Glucose 140 H Calcium 7.6 L Liver Function 06/16/19 Range/Units 04:00 Total Bilirubin 0.3 (0.3-1.0) mg/dL AST 17 (13-39) Units/L ALT 56 H (7-52) Units/L Alkaline Phosphatase 200 H (34-104) Units/L Albumin 2.6 L (3.5-5.7) g/dL - ABG Interpretation ABG results: PT/INR, D-dimer PT 13.1 Seconds (9.4-12.1) H 06/10/19 01:50 - VTE Documentation of Mechanical Device: Intermittent pneumatic compression device Consult Discharge Plan - Plan Referrals: Terrie Joseph, TANK FILLER [Primary Care Provider] - (3) Alcoholic hepatitis Qualifiers: Qualified Code(s): K70.10 - Alcoholic hepatitis without ascites (4) Pancreatitis Qualifiers: Chronicity: acute Pancreatitis type: alcohol induced Acute pancreatitis comp lication: no infection or necrosis Qualified Code(s): K85.20 - Alcohol induced acute pancreatitis without necrosis or infection (5) Compression fracture of T6 vertebra Qualifiers: Encounter type: initial encounter Qualified Code(s): S22.050A - Wedge compression fracture of T5-T6 vertebra, initial encounter for closed fracture (6) COPD (chronic obstructive pulmonary disease) Qualifiers: Qualified Code(s): J44.9 - Chronic obstructive pulmonary disease, unspecified (9) Sepsis Qualifiers: Sepsis type: sepsis due to unspecified organism Sepsis acute organ dysfunction status: without acute organ dysfunction Qualified Code(s): A41.9 - Sepsis, unspecified organism
[2019-06-16] MEDS: Cyanocobalamin (B-12) 1,000 MCG TABLET PO SCH (12:55)
[2019-06-16 13:55] LABS: Hematocrit 29.3 % (35.3-44.9)
[2019-06-16 13:57] LABS: Hemoglobin 9.8 g/dL (11.5-15.4)
[2019-06-16] MEDS: traZODone 50 MG TABLET PO SCH (20:17)
[2019-06-16] MEDS: Mirtazapine 15 MG TABLET PO SCH (20:17)
[2019-06-17] MEDS: Piperacillin/Tazobactam 3.375 GM in 0.9 % Sodium Chloride Mini Bag 100 ML IVPB SCH ×3 (00:38→16:50)
[2019-06-17 06:31] LABS: Hemoglobin 8.7 g/dL (11.5-15.4); Mean Corpuscular HGB Conc 32.2 g/dL (31.6-35.5); Mean Corpuscular Hemoglobin 30.1 pg (28.0-33.3); Mean Corpuscular Volume 93.4 fL (83.0-100.0); Mean Platelet Volume 10.5 fL (9.4-12.4); Platelet Count 154 K/mcL (140-400); Red Blood Count 2.89 M/mcL (3.82-4.97); Red Cell Distribution Width 17.2 % (11.5-14.5); White Blood Count 9.2 K/mcL (4.3-11.1)
[2019-06-17] MEDS: *HR* OxyCODONE/APAP 5/325 TABLET PO PRN ×3 (06:31→19:28)
[2019-06-17] MEDS: Pantoprazole 40 MG VIAL IVP SCH ×2 (06:31→18:38)
[2019-06-17 06:51] LABS: BUN/Creatinine Ratio 7 (6-26); Blood Urea Nitrogen 4 mg/dL (8-23); Calcium 8.1 mg/dL (8.6-10.3); Carbon Dioxide 37 mEq/L (23-29); Chloride 98 mEq/L (98-107); Glucose 86 mg/dL (70-105); Osmolality,Calculated 278 (280-300); Phosphorous 4.9 mg/dL (2.7-4.5); Sodium 136 mEq/L (136-145); eGFR For African Americans > 60 (> 60); eGFR For Non-African Americans > 60 (> 60)
[2019-06-17] MEDS: Budesonide/Formoterol 160/4.5 1 PUFF INH IH SCH ×2 (07:47→20:04)
[2019-06-17] MEDS: Cholecalciferol (D-3) 1,000 UNIT (25MCG) TABLET PO SCH (08:24)
[2019-06-17] MEDS: amLODIPine 5 MG TABLET PO SCH (08:24)
[2019-06-17] MEDS: Gabapentin 300 MG CAPSULE PO SCH ×3 (08:24→19:28)
[2019-06-17] MEDS: Cyanocobalamin (B-12) 1,000 MCG TABLET PO SCH (08:24)
--- NOTE | 2019-06-17 12:16 | Internal Med Progress Note ---
Hospitalist Progress Note - Encounter Date of Encounter: 06/17/19 Time of Encounter: 10:45 - Subjective Interval History: No major events overnight. Patient was seen this a.m. sHe denied fever, chills or night sweats. sHe has no nausea, vomiting or abdominal pain. Patient denied chest pain, shortness of breath or palpitation. - Exam Vitals: Temp Pulse Resp BP Pulse Ox 98.2 F 94 18 150/96 98 06/17/19 10:49 06/17/19 10:49 06/17/19 10:49 06/17/19 10:49 06/17/19 10:49 Exam: General: Alert and oriented 3. Cachectic elderly female Skin:Normal color, no rash, no lesions. HEENT:EOM, pupils equal, round and reactive. Cardiovascular:Normal S1 & S2, no rubs, murmurs or gallops. No JVD. Pulse regular. Lungs:bilateral crackles Abdomen:Soft, right upper quadrant tenderness Extremities:No deformity, no edema or tenderness, no joint swelling or clubbing. Neurological: No apparent neurological deficits.Alert and oriented 3 Pulses:Carotid and radial pulses normal +2. - Assessment and Plan (1) Anemia Current Visit: No Status: Chronic (2) Alcoholic hepatitis Current Visit: Yes Status: Resolved (3) Duodenitis Current Visit: Yes Status: Resolved (4) Hospital-acquired pneumonia Current Visit: Yes Status: Acute (5) Sepsis Current Visit: Yes Status: Resolved - Summary of Assessment and Plan Summary of Assessment and Plan: Ms. Rodriguez is a 59 year old female with PMH of COPD on 3L at home and current smoker of 2PPD, GERD, hypertension, liver disease, thyroid disease, TIA and alcohol abuse who came into the hospital status post fall and encephalopathy. Her symptoms were managed as following: Sepsis: Patient had 3/4 criteria, urine cultures positive for Klebsiella pneumonia. Leukocytosis resolved. CT scan 06/14 revealed new patchy infiltrates concerning for pneumonia. Patient is afebrile, has no leukocytosis, hemody namically stable. Her MRSA swab was positive. Continue renally dosed Zosyn and vancomycin day 3/7. HAP: as above. Anemia: Hemoglobin 8.7 s/p 1 PRBC. Recent EGD without bleeding. Iron profile is low, likely dietary more than chronic bleed. Start on IV iron 2/5. GI reconsulted and planning for colonoscopy on Wednesday. B12 is borderline low and started on supplementation. Hypomagnesemia and hypophosphatemia: New Events, repeated, check levels tomorrow. Chronic hypoxic respiratory failure: 2/2 above. Etoh hepatitis: LFT trending down, not a candidate for steroids given her acute infection. Consulted to quit drinking Acute compression fracture: 2/2 fall at home, CT with finding of T6 acute fracture, pain management consult and patient will get a brace. Not a candidate for intervention at this point. PT/OT consult Duodenitis: Found on CT abdomen, EGD with no finding of ulcers, biopsies are pending. COPD: On 3L at home as per dialysis social worker, now on 2L. Etoh pancreatitis: Resolved, patient tolerating oral intake DVT prophylaxis: SCD - Time Spent with Patient Total time spent is greater than 50% in coordination of care (as documented) at patient's floor/unit and/or counseling patient: Plan of Care Discussed with: patient Internal Medicine: Result - Labs CBC & Chem 7: 06/17/19 06:20 06/17/19 06:20 Labs: Short CBC 06/16/19 06/17/19 Range/Units 13:31 06:20 WBC 9.2 (4.3-11.1) K/mcL Hgb 9.8 L D 8.7 L (11.5-15.4) g/dL Hct 29.3 L 27.0 L (35.3-44.9) % Plt Count 154 (140-400) K/mcL BMP 06/17/19 06:20 Sodium 136 Potassium 4.0 Chloride 98 Carbon Dioxide 37 H BUN 4 L Creatinine 0.58 L Glucose 86 Calcium 8.1 L - ABG Interpretation ABG results: PT/INR, D-dimer PT 13.1 Seconds (9.4-12.1) H 06/10/19 01:50 - VTE Documentation of Mechanical Device: Intermittent pneumatic compression device Consult Discharge Plan - Plan Referrals: Terrie Joseph, SMALL BRAKE FORM OPERATOR [Primary Care Provider] - (1) Anemia Qualifiers: Anemia type: unspecified type Qualified Code(s): D64.9 - Anemia, unspecified (2) Alcoholic hepatitis Qualifiers: Qualified Code(s): K70.10 - Alcoholic hepatitis without ascites (5) Sepsis Qualifiers: Sepsis type: sepsis due to unspecified organism Sepsis acute organ dysfunctio n status: without acute organ dysfunction Qualified Code(s): A41.9 - Sepsis, unspecified organism
[2019-06-17] MEDS: Iron Sucrose Complex 250 MG in 0.9 % Sodium Chloride 250 ML IVPB SCH (12:48)
[2019-06-17] MEDS: Mirtazapine 15 MG TABLET PO SCH (19:28)
[2019-06-17] MEDS: traZODone 50 MG TABLET PO SCH (19:28)
[2019-06-18] MEDS: Piperacillin/Tazobactam 3.375 GM in 0.9 % Sodium Chloride Mini Bag 100 ML IVPB SCH ×3 (00:56→15:22)
[2019-06-18 04:42] LABS: Hematocrit 26.7 % (35.3-44.9); Hemoglobin 8.6 g/dL (11.5-15.4); Mean Corpuscular HGB Conc 32.2 g/dL (31.6-35.5); Mean Platelet Volume 11.2 fL (9.4-12.4); Platelet Count 148 K/mcL (140-400); Red Blood Count 2.87 M/mcL (3.82-4.97); Red Cell Distribution Width 16.7 % (11.5-14.5); White Blood Count 8.9 K/mcL (4.3-11.1)
[2019-06-18] MEDS: Pantoprazole 40 MG VIAL IVP SCH (05:51)
[2019-06-18] MEDS: Budesonide/Formoterol 160/4.5 1 PUFF INH IH SCH ×2 (07:34→22:39)
[2019-06-18] MEDS: Gabapentin 300 MG CAPSULE PO SCH ×3 (08:12→21:36)
[2019-06-18] MEDS: amLODIPine 5 MG TABLET PO SCH (08:12)
[2019-06-18] MEDS: Cholecalciferol (D-3) 1,000 UNIT (25MCG) TABLET PO SCH (08:12)
[2019-06-18] MEDS: Cyanocobalamin (B-12) 1,000 MCG TABLET PO SCH (08:12)
[2019-06-18] MEDS: *HR* OxyCODONE/APAP 5/325 TABLET PO PRN ×3 (08:12→21:36)
[2019-06-18] MEDS: Iron Sucrose Complex 250 MG in 0.9 % Sodium Chloride 250 ML IVPB SCH (09:09)
[2019-06-18] MEDS: tiZANidine 4 MG TABLET PO PRN ×2 (09:09→17:47)
--- NOTE | 2019-06-18 11:09 | Internal Med Progress Note ---
Hospitalist Progress Note - Encounter Date of Encounter: 06/18/19 Time of Encounter: 10:45 - Subjective Interval History: Patient was seen this morning, she reported no chest pain or shortness of breath. Her breathing is improving. She had no fever, chills or night sweats. She did have breakfast without complication. - Exam Vitals: Temp Pulse Resp BP Pulse Ox 98.7 F 89 16 105/57 97 06/18/19 10:51 06/18/19 10:51 06/18/19 10:51 06/18/19 10:51 06/18/19 10:51 Exam: General: Alert and oriented 3. Cachectic elderly female Skin:Normal color, no rash, no lesions. HEENT:EOM, pupils equal, round and reactive. Cardiovascular:Normal S1 & S2, no rubs, murmurs or gallops. No JVD. Pulse regular. Lungs:bilateral rhonchi and diminished lung sounds Abdomen:Soft, no tenderness Extremities:No deformity, no edema or tenderness, no joint swelling or clubbing. Neurological: No apparent neurological deficits.Alert and oriented 3 Pulses:Carotid and radial pulses normal +2. - Assessment and Plan (1) Anemia Current Visit: Yes Status: Chronic (2) Alcoholic hepatitis Current Visit: Yes Status: Resolved (3) Duodenitis Current Visit: Yes Status: Resolved (4) Hospital-acquired pneumonia Current Visit: Yes Status: Acute (5) Sepsis Current Visit: Yes Status: Resolved - Summary of Assessment and Plan Summary of Assessment and Plan: Ms. Rodriguez is a 59 year old female with PMH of COPD on 3L at home and current smoker of 2PPD, GERD, hypertension, liver disease, thyroid disease, TIA and alcohol abuse who came into the hospital status post fall and encephalopathy. H er symptoms were managed as following: Sepsis: Patient had 3/4 criteria, urine cultures positive for Klebsiella pneumonia. Leukocytosis resolved. CT scan 06/14 revealed new patchy infiltrates concerning for pneumonia. Patient is afebrile, has no leukocytosis, hemodynamically stable. Her MRSA swab was positive. Continue renally dosed Zosyn and vancomycin day 12/18. HAP: as above. Anemia: Hemoglobin 8.6 s/p 1 PRBC. Recent EGD without bleeding. Iron profile is low, likely dietary more than chronic bleed. Start on IV iron 11/15. GI reconsulted and planning for colonoscopy on Wednesday. B12 is borderline low and started on supplementation. Hypomagnesemia and hypophosphatemia: New Events, repeated, check levels tomorrow. Chronic hypoxic respiratory failure: 2/2 above. Etoh hepatitis: LFT trending down, not a candidate for steroids given her acute infection. Consulted to quit drinking Acute compression fracture: 2/2 fall at home, CT with finding of T6 acute fracture, pain management consult and patient will get a brace. Not a candidate for intervention at this point. PT/OT consult Duodenitis: Found on CT abdomen, EGD with no finding of ulcers, biopsies are pending. COPD: On 3L at home as per dialysis social worker, now on 2L. Etoh pancreatitis: Resolved, patient tolerating oral intake DVT prophylaxis: SCD - Time Spent with Patient Total time spent is greater than 50% in coordination of care (as documented) at patient's floor/unit and/or counseling patient: Plan of Care Discussed with: patient Internal Medicine: Result - Labs CBC & Chem 7: 06/18/19 04:10 06/17/19 06:20 Labs: Short CBC 06/18/19 Range/Units 04:10 WBC 8.9 (4.3-11.1) K/mcL Hgb 8.6 L (11.5-15.4) g/dL Hct 26.7 L (35.3-44.9) % Plt Count 148 (140-400) K/mcL - ABG Interpretation ABG results: PT/INR, D-dimer PT 13.1 Seconds (9.4-12.1) H 06/10/19 01:50 - VTE Documentation of Mechanical Device: Intermittent pneumatic compression device Consult Discharge Plan - Plan Referrals: Terrie Joseph, DEXIGRAPH OPERATOR [Primary Care Provider] - ___ (1) Anemia Qualifiers: Anemia type: iron deficiency (2) Alcoholic hepatitis Qualifiers: Qualified Code(s): K70.10 - Alcoholic hepatitis without ascites (5) Sepsis Qualifiers: Sepsis type: sepsis due to unspecified organism Sepsis acute organ dysfunction status: without acute organ dysfunction Qualified Code(s): A41.9 - Sepsis, unspecified organism
[2019-06-18] MEDS ORDERED: SODIUM CHLORIDE/NAHCO3/KCL/PEG 4,000 ML SOLN.RECON PO ONE (15:50)
[2019-06-18] MEDS: Mirtazapine 15 MG TABLET PO SCH (21:36)
[2019-06-18] MEDS: traZODone 50 MG TABLET PO SCH (21:36)
[2019-06-19] MEDS: Piperacillin/Tazobactam 3.375 GM in 0.9 % Sodium Chloride Mini Bag 100 ML IVPB SCH ×2 (01:03→07:58)
[2019-06-19 05:18] LABS: Hematocrit 26.5 % (35.3-44.9); Hemoglobin 8.3 g/dL (11.5-15.4); Mean Corpuscular HGB Conc 31.3 g/dL (31.6-35.5); Mean Corpuscular Hemoglobin 30.1 pg (28.0-33.3); Mean Platelet Volume 10.5 fL (9.4-12.4); Platelet Count 183 K/mcL (140-400); Red Blood Count 2.76 M/mcL (3.82-4.97); Red Cell Distribution Width 16.6 % (11.5-14.5); White Blood Count 7.7 K/mcL (4.3-11.1)
[2019-06-19 05:37] LABS: BUN/Creatinine Ratio 14 (6-26); Blood Urea Nitrogen 5 mg/dL (8-23); Calcium 8.6 mg/dL (8.6-10.3); Carbon Dioxide 36 mEq/L (23-29); Chloride 99 mEq/L (98-107); Glucose 83 mg/dL (70-105); Osmolality,Calculated 282 (280-300); Potassium 3.5 mEq/L (3.5-5.1); Sodium 138 mEq/L (136-145); eGFR For African Americans > 60 (> 60); eGFR For Non-African Americans > 60 (> 60)
[2019-06-19] MEDS: Budesonide/Formoterol 160/4.5 1 PUFF INH IH SCH (07:40)
[2019-06-19] MEDS: Iron Sucrose Complex 250 MG in 0.9 % Sodium Chloride 250 ML IVPB SCH (08:01)
[2019-06-19] MEDS ORDERED: Lidocaine -MPF 2% 2 ML VIAL ONE (11:46)
[2019-06-19] MEDS ORDERED: Propofol 500 MG/50 ML INFUS..BTL ONE (11:46)
[2019-06-19] MEDS ORDERED: *HR* FentaNYL (PF) 100 MCG/2 ML VIAL ONE (12:14)
[2019-06-19 12:48] VITALS: BP 123/66
--- NOTE | 2019-06-19 12:50 | Anesthesia Evaluation PreOp ---
Date of Encounter: 06/19/19 Time of Encounter: 12:46 - Past History Planned Operation: colonoscopy Cardiac History: HTN Pulmonary History: Smoker, COPD (no oxygen requirements) CARPENTER REPAIRER History: Denies Any Significant HX Other Medical History: Denies Any Significant HX, GERD Anesthesia History: No Prior Anesthetic Complications, Past Anesthesia Alcohol Use: heavy, recent Drug use: none Medications and Allergies Escitalopram [Lexapro] 10 mg PO DAILY 12/30/17 [History] Cetirizine HCl [24Hour Allergy] 10 mg PO DAILY 09/14/18 [History] Mirtazapine 7.5 mg PO HS 12/08/18 [History] Tizanidine HCl 2 mg PO Q8H PRN 01/17/19 [History] Cholecalciferol (D-3) [Vitamin D] 1,000 unit PO DAILY #30 tablet 02/14/19 [Rx] Guaifenesin [Mucinex] 600 mg PO Q12H PRN 04/18/19 [History] Omeprazole [PriLOSEC] 40 mg PO BID 05/24/19 [History] Albuterol Sulfate [Proventil Inhaler] 2 puff IH Q2HR PRN #1 inhaler 05/28/19 [Rx] Budesonide/Formoterol 160/4.5 [Symbicort 160/4.5] 2 puff IH BIDR 30 Days #1 inh 05/28/19 [Rx] Gabapentin [Neurontin] 300 mg PO TID 06/11/19 [History] traZODone [TraZODone] 50 mg PO HS 06/11/19 [History] Cyanocobalamin (B-12) [Vitamin B12] 1,000 mcg PO DAILY #30 tablet 06/19/19 [Rx] Doxycycline 100 mg PO BID #6 capsule 06/19/19 [Rx] Ferrous Sulfate [Iron] 325 mg PO DAILY #30 capsule.er 06/19/19 [Rx] HydrOXYzine [Atarax] 10 mg PO Q8H PRN #30 tab 06/19/19 [Rx] OxyCODONE/APAP 5/325 [Percocet 5/325 MG] 1 each PO Q6HR PRN 7 Days #28 tablet 06/19/19 [Rx] amLODIPine [Norvasc] 5 mg PO DAILY #30 tablet 06/19/19 [Rx] Allergy/AdvReac Type Severity Reaction Status Date / Time No Known Allergies Allergy Verified 05/24/19 16:16 - Meds/Allergy Pre-op Review Medications Reviewed: Yes Allergies Reviewed: Yes Beta Blockers on Current Med List: No Anesthesia Results - Labs 06/19/19 04:56 06/19/19 04:56 - Imaging EKG: report reviewed Anesthesia Exam Vital Signs/O2 Sat/Glucose, Most Recent Temp Pulse Resp BP Pulse Ox 98.3 F 96 16 123/66 96 06/19/19 12:47 06/19/19 12:47 06/19/19 12:47 06/19/19 12:47 06/19/19 12:47 Weight: 57 kg NPO (# of Hours): > 8 hr - HEENT Pupil (Motor): Pupils equal Mallampati: II Teeth: Edentulous Oral Opening: Less than or equal to 3 - CARPENTER REPAIRER LOC: Oriented - Cardiac Rhythm: Regular Murmur: None - Pulmonary Breath Sounds: bilateral Clear Respiratory Effort: Symmetrical Anesthesia Assess/Plan ASA Score: 3 Level of consciousness: Cooperative, Oriented Anesthetic Plan: MAC Monitoring Plan: Standard Monitors Recovery Plan: PACU
--- NOTE | 2019-06-19 13:49 | Anesthesia Evaluation Post Op ---
Date of Encounter: 06/19/19 Time of Encounter: 13:48 - Vital Signs Vital Signs: Vital Signs/O2 Sat/Glucose, Most Recent Temp Pulse Resp BP Pulse Ox 98.3 F 96 16 123/66 96 06/19/19 12:47 06/19/19 12:47 06/19/19 12:47 06/19/19 12:47 06/19/19 12:47 - Lungs Lungs: Clear Ascult./Percussion - Airway Airway: Non-obstructed - Cardiovascular Regular Rate - Mental Status Mental Status: Alert & Oriented, Answers Appropriately - Pain Pain Scale: 0 - Nausea Vomiting Nausea Vomiting: Not Present - Hydration Hydration: NPO - Discharge PostOp Status: Discharge Patient to home
--- NOTE | 2019-06-19 14:04 | Discharge Summary ---
- NOTES TO OUTPATIENT PROVIDER Notes to Outpatient Provider: Patient was admitted for acute change in mental status secondary to etoh INTOXICATION/WITHDRAWAL. She was managed for etoh hepatitis, pancreatitis and duodenitis. Her LFTs trended down without any need for prednisone. Her course was complicated by hospital-acquired pneumonia treated with antibiotics and anemia due to iron deficiency. Upper and lower endoscopies with negative findings for acute bleed and GI recommended capsule endoscopy as outpatient. She also had T6 acute compression fracture and pain service was consulted and patient had a brace before discharge and follow-up is required as outpatient. Orders not resulted at time of discharge: Pending orders 06/15/19 09:57 Culture,Sputum with Gram Stain [RM] Routine 06/16/19 07:40 Occult Blood,Stool [BF] Routine 06/19/19 12:28 Fecal Clostridium difficile PCR [C.difficile Toxin PCR (>=2yo)] [MOLMIC] Routine Date of Encounter: 06/19/19 Time of Encounter: 10:40 - Discharge Diagnosis (1) Anemia Priority: Secondary Status: Chronic Qualifiers: Anemia type: iron deficiency Iron deficiency anemia type: inadequate dietary iron intake Qualified Code(s): D50.8 - Other iron deficiency anemias (2) Alcoholic hepatitis Priority: Primary Status: Resolved Qualifiers: Qualified Code(s): K70.10 - Alcoholic hepatitis without ascites (3) Duodenitis Priority: Secondary Status: Resolved (4) Hospital-acquired pneumonia Priority: Secondary Status: Resolved (5) Sepsis Priority: Secondary Status: Resolved Qualifiers: Sepsis type: sepsis due to unspecified organism Sepsis acute organ dysfunction status: without acute organ dysfunction Qualified Code(s): A41.9 - Sepsis, unspecified organism (6) HTN (hypertension) Priority: Secondary Status: Chronic Qualifiers: Hypertension type: essential hypertension Qualified Code(s): I10 - Essential (primary) hypertension (7) Urinary tract infection Priority: Secondary Status: Resolved Qualifiers: Urinary tract infection type: acute cystitis Hematuria presence: without h ematuria Qualified Code(s): N30.00 - Acute cystitis without hematuria Hospital course: Ms. Rodriguez is a 59 year old female with PMH of COPD on 3L at home and current smoker of 2PPD, GERD, hypertension, thyroid disease, TIA and alcohol abuse who was managed for ETOH hepatitis and pancreatitis. GI was consulted and patient required no steroids therapy giving her duodenitis finding on CT scan. Her LFTs trended down to normal levels before discharge. Her course was complicated by sepsis 2/2 hospital-acquired pneumonia and UTI treated with IV antibiotics. She also had iron deficiency anemia and underwent upper and lower endoscopies were negative findings for active bleeding. GI recommended outpatient follow-up for capsule endoscopy. She also had acute compression fracture in T6 and pain management service recommended brace which she got at discharge follow-up as outpatient. She will get short term pain medications until she is able to follow with pain management. Today, patient is clinically and hemodynamically stable. She remained on 2-3 L of oxygen. PT/OT evaluated her and she will require home health service. She will be discharged home in stable condition Discharge discussed with: patient - Time Spent with Patient Total time spent providing and/or coordinating discharge services: 45 minutes - Discharge Medications Prescriptions: New Ferrous Sulfate [Iron] 325 mg PO DAILY #30 capsule.er amLODIPine [Norvasc] 5 mg PO DAILY #30 tablet Cyanocobalamin (B-12) [Vitamin B12] 1,000 mcg PO DAILY #30 tablet Doxycycline 100 mg PO BID #6 capsule Continued Escitalopram [Lexapro] 10 mg PO DAILY Cetirizine HCl [24Hour Allergy] 10 mg PO DAILY Mirtazapine 7.5 mg PO HS Tizanidine HCl 2 mg PO Q8H PRN PRN Reason: Muscle Spasm Cholecalciferol (D-3) [Vitamin D] 1,000 unit PO DAILY #30 tablet Guaifenesin [Mucinex] 600 mg PO Q12H PRN PRN Reason: Congestion Omeprazole [PriLOSEC] 40 mg PO BID Albuterol Sulfate [Proventil Inhaler] 2 puff IH Q2HR PRN #1 inhaler PRN Reason: Shortness Of Breath Budesonide/Formoterol 160/4.5 [Symbicort 160/4.5] 2 puff IH BIDR 30 Days #1 inh traZODone [TraZODone] 50 mg PO HS Gabapentin [Neurontin] 300 mg PO TID HydrOXYzine [Atarax] 10 mg PO Q8H PRN #30 tab PRN Reason: Anxiety OxyCODONE/APAP 5/325 [Percocet 5/325 MG] 1 each PO Q6HR PRN 7 Days #28 tablet PRN Reason: Pain Discontinued Vancomycin Oral Soln [Firvanq] 125 mg PO QID 26 Days #57 udc Nystatin [Nystatin Suspension] 5 ml PO QID PredniSONE [Deltasone] 10 mg PO AD Home Medications: Escitalopram [Lexapro] 10 mg PO DAILY 12/30/17 [History] Cetirizine HCl [24Hour Allergy] 10 mg PO DAILY 09/14/18 [History] Mirtazapine 7.5 mg PO HS 12/08/18 [History] Tizanidine HCl 2 mg PO Q8H PRN 01/17/19 [History] Cholecalciferol (D-3) [Vitamin D] 1,000 unit PO DAILY #30 tablet 02/14/19 [Rx] Guaifenesin [Mucinex] 600 mg PO Q12H PRN 04/18/19 [History] Omeprazole [PriLOSEC] 40 mg PO BID 05/24/19 [History] Albuterol Sulfate [Proventil Inhaler] 2 puff IH Q2HR PRN #1 inhaler 05/28/19 [Rx] Budesonide/Formoterol 160/4.5 [Symbicort 160/4.5] 2 puff IH BIDR 30 Days #1 inh 05/28/19 [Rx] Gabapentin [Neurontin] 300 mg PO TID 06/11/19 [History] traZODone [TraZODone] 50 mg PO HS 06/11/19 [History] Cyanocobalamin (B-12) [Vitamin B12] 1,000 mcg PO DAILY #30 tablet 06/19/19 [Rx] Doxycycline 100 mg PO BID #6 capsule 06/19/19 [Rx] Ferrous Sulfate [Iron] 325 mg PO DAILY #30 capsule.er 06/19/19 [Rx] HydrOXYzine [Atarax] 10 mg PO Q8H PRN #30 tab 06/19/19 [Rx] OxyCODONE/APAP 5/325 [Percocet 5/325 MG] 1 each PO Q6HR PRN 7 Days #28 tablet 06/19/19 [Rx] amLODIPine [Norvasc] 5 mg PO DAILY #30 tablet 06/19/19 [Rx] Allergies/Adverse Reactions: Allergy/AdvReac Type Severity Reaction Status Date / Time No Known Allergies Allergy Verified 05/24/19 16:16 Date of admission: 06/10/19 20:29 Primary care physician: Terrie Joseph CNP Consults: 06/09/19 19:32 Consult to Web Services Architect [CONS] Routine Reason for SW Consult: COncern for ongoing alcohol abuse 06/09/19 22:26 Consult to Nutrition [CONS] Routine Comment: Consulting Provider: NUTRITION Reason for Dietary Consult: MST Score 06/13/19 08:47 Consult to Physical Therapy [CONS] Routine Comment: Evaluate, develop and implement POC Reason for Consult: weakness Does patient have active BEDREST order?: No Is patient medically & hemodynamically stable?: Yes Patient assessed for mobility or mobilized this visit?: No 06/13/19 08:48 Consult to Occupational Therapy [CONS] Routine Comment: Evaluate, develop and implement POC Reason for Consult: weakness Does patient have active BEDREST order?: No Is patient medically & hemodynamically stable?: Yes Patient assessed for mobility or mobilized this visit?: No 06/14/19 10:37 Consult to Pain Management [CONS] Routine Consulting Provider: Pain Mgt [facility] [place] Reason for Consult: acute T6 compression fracture Call Completed: Yes 06/15/19 07:47 Consult to Gastroenterology [CONS] Routine Consulting Provider: [facility] [place] Reason for Consult: Anemia Call Completed: No - Constitutional Vitals: Temp Pulse Resp BP Pulse Ox 98.3 F 96 16 123/66 96 06/19/19 12:47 06/19/19 12:47 06/19/19 12:47 06/19/19 12:47 06/19/19 12:47 Exam: General: Alert and oriented 3. Cachectic elderly female Skin:Normal color, no rash, no lesions. HEENT:EOM, pupils equal, round and reactive. Cardiovascular:Normal S1 & S2, no rubs, murmurs or gallops. No JVD. Pulse regular. Lungs:bilateral rhonchi and diminished lung sounds Abdomen:Soft, no tenderness Extremities:No deformity, no edema or tenderness, no joint swelling or clubbing. Neurological: No apparent neurological deficits.Alert and oriented 3 Pulses:Carotid and radial pulses normal +2. - Patient Status Disposition: Home Health Service Condition: Good Functional capacity at discharge: uses cane/walker Overall status at discharge: patient is back to baseline - Discharge Instructions Follow Up With: Opal,Terrie G, SODA ROOM OPERATOR [Primary Care Provider] - (pcp requested) Alexandro Kuhn DO [Partnered Physician] - 06/26/19 8:40 am - Diet and Activity Activity: increase activity as tolerated Diet: low salt diet - VTE Documentation of Mechanical Device: Intermittent pneumatic compression device
--- NOTE | 2019-06-19 14:05 | Physician Discharge Referral ---
Home Health/Hosp Referral Info Transfer to: Home Health Provider in Charge Post Discharge: PCP - Diagnosis (1) Anemia Priority: Secondary Status: Chronic (2) Alcoholic hepatitis Priority: Secondary Status: Resolved (3) Duodenitis Priority: Secondary Status: Resolved (4) Hospital-acquired pneumonia Priority: Primary Status: Acute (5) Sepsis Priority: Secondary Status: Resolved - Respiratory Orders Oxygen / L per min (2-3 L) Smoking Cessation: Smoking cessation has been advised. For more information, call the [place] Tobacco Quit Line at 0-792-LTXI-NOW. - Diet/Nutrition Diet/Nutrition Orders: Regular - Activity Activity Orders: Up ad carlos, Ambulate - Services Needed Following services are medically necessary services: Nursing, Home Health Aide, Physical Therapy, Occupational Therapy - Transfer Medications Prescriptions: HydrOXYzine [Atarax] 10 mg PO Q8H PRN #30 tab PRN Reason: Anxiety Prescription Printed Doxycycline 100 mg PO BID #6 capsule Prescription Printed Ferrous Sulfate [Iron] 325 mg PO DAILY #30 capsule.er Prescription Printed amLODIPine [Norvasc] 5 mg PO DAILY #30 tablet Prescription Printed OxyCODONE/APAP 5/325 [Percocet 5/325 MG] 1 each PO Q6HR PRN 7 Days #28 tablet PRN Reason: Pain Prescription Printed Cyanocobalamin (B-12) [Vitamin B12] 1,000 mcg PO DAILY #30 tablet Prescription Printed Home Medications: Escitalopram [Lexapro] 10 mg PO DAILY 12/30/17 [History] Cetirizine HCl [24Hour Allergy] 10 mg PO DAILY 09/14/18 [History] Mirtazapine 7.5 mg PO HS 12/08/18 [History] Tizanidine HCl 2 mg PO Q8H PRN 01/17/19 [History] Cholecalciferol (D-3) [Vitamin D] 1,000 unit PO DAILY #30 tablet 02/14/19 [Rx] Guaifenesin [Mucinex] 600 mg PO Q12H PRN 04/18/19 [History] Omeprazole [PriLOSEC] 40 mg PO BID 05/24/19 [History] Albuterol Sulfate [Proventil Inhaler] 2 puff IH Q2HR PRN #1 inhaler 05/28/19 [Rx] Budesonide/Formoterol 160/4.5 [Symbicort 160/4.5] 2 puff IH BIDR 30 Days #1 inh 05/28/19 [Rx] Gabapentin [Neurontin] 300 mg PO TID 06/11/19 [History] traZODone [TraZODone] 50 mg PO HS 06/11/19 [History] Cyanocobalamin (B-12) [Vitamin B12] 1,000 mcg PO DAILY #30 tablet 06/19/19 [Rx] Doxycycline 100 mg PO BID #6 capsule 06/19/19 [Rx] Ferrous Sulfate [Iron] 325 mg PO DAILY #30 capsule.er 06/19/19 [Rx] HydrOXYzine [Atarax] 10 mg PO Q8H PRN #30 tab 06/19/19 [Rx] OxyCODONE/APAP 5/325 [Percocet 5/325 MG] 1 each PO Q6HR PRN 7 Days #28 tablet 06/19/19 [Rx] amLODIPine [Norvasc] 5 mg PO DAILY #30 tablet 06/19/19 [Rx] Allergies/Adverse Reactions: Allergy/AdvReac Type Severity Reaction Status Date / Time No Known Allergies Allergy Verified 05/24/19 16:16 Certification: Further, I certify that my clinical findings support that this patient is homebound (i.e. absences from home require considerable and taxing effort and are for medical reasons or jehovah's witness services or infrequently or short duration when for other reasons) because: Homebound Reason: Patient requires assistance of a person or device to safely leave home Attestation: My signature below is to certify that this patient is under my care and that I, or nurse practitioner, or a physician's assistant maintenance manager working with me, has a [id number] encounter with this patient.
[2019-06-19] MEDS: Gabapentin 300 MG CAPSULE PO SCH ×2 (14:08→14:17)
[2019-06-19] MEDS: Cyanocobalamin (B-12) 1,000 MCG TABLET PO SCH (14:08)
[2019-06-19] MEDS: Cholecalciferol (D-3) 1,000 UNIT (25MCG) TABLET PO SCH (14:08)
[2019-06-19] MEDS: amLODIPine 5 MG TABLET PO SCH (14:08)
[2019-06-19] MEDS: *HR* OxyCODONE/APAP 5/325 TABLET PO PRN (14:12)
[2019-06-19] MEDS ORDERED: FLU Vac QV 19-20 (6Month+)/PF 0.5 ML SYRINGE IM ONE (15:58)
[2019-06-19] MEDS ORDERED: Aminoglycoside Consult 1 EACH MC ONE (16:44)
[2019-06-19] MEDS ORDERED: Furosemide 40 MG/4 ML VIAL IVP ONE (17:00)
== END 2019-06-19 16:45 | disposition home health service (06) | DRG 871 ==
LOC: 2NENU 10:50 → EMEROOARM 10:50 → 2NENU 20:28 → SUATTDRO 06-10 20:29
PROVIDERS: ADMIT Internal Medicine; ATTEND Internal Medicine
PROC: ENDOEBX (2019-06-13 13:30)

== ENCOUNTER 2019-06-29 14:40 | Inpatient (IN) ==
[2019-06-29 15:32] LABS: Basophils # 0.1 K/mcL (0.0-0.2); Basophils % 0.9 %; Eosinophils # 0.3 K/mcL (0.0-0.6); Eosinophils % 3.3 %; Hematocrit 32.8 % (35.3-44.9); Hemoglobin 10.9 g/dL (11.5-15.4); Immature Granulocytes % 0.7 % (0-4); Lymphocytes # 1.7 K/mcL (0.6-4.6); Lymphocytes % 18.5 %; Mean Corpuscular HGB Conc 33.2 g/dL (31.6-35.5); Mean Corpuscular Hemoglobin 31.3 pg (28.0-33.3); Mean Corpuscular Volume 94.3 fL (83.0-100.0); Mean Platelet Volume 10.1 fL (9.4-12.4); Monocytes # 0.7 K/mcL (0.0-1.3); Monocytes % 8.1 %; Neutrophils # 6.2 K/mcL (1.6-8.9); Platelet Count 373 K/mcL (140-400); Red Blood Count 3.48 M/mcL (3.82-4.97); Red Cell Distribution Width 17.3 % (11.5-14.5); Segmented Neutrophils % 68.5 %
[2019-06-29 15:39] LABS: Prothrombin Time 11.7 Seconds (9.4-12.1)
[2019-06-29 15:54] LABS: Alanine Aminotransferase 9 Units/L (7-52); Albumin 3.1 g/dL (3.5-5.7); Albumin/Globulin Ratio 0.9 (1.1-2.2); Alkaline Phosphatase 164 Units/L (34-104); Aspartate Amino Transferase 22 Units/L (13-39); BUN/Creatinine Ratio 11 (6-26); Bilirubin,Indirect 0.2 mg/dL (0.0-1.2); Bilirubin,Total 0.2 mg/dL (0.3-1.0); Blood Urea Nitrogen 5 mg/dL (8-23); Calcium 8.4 mg/dL (8.6-10.3); Carbon Dioxide 31 mEq/L (23-29); Chloride 99 mEq/L (98-107); Ethanol < 10 mg/dL (Less than 10); Globulin 3.3 g/dL (2.4-3.5); Glucose 72 mg/dL (70-105); Osmolality,Calculated 286 (280-300); Potassium 3.1 mEq/L (3.5-5.1); Sodium 140 mEq/L (136-145); Total Protein 6.4 g/dL (6.4-8.9); Troponin I < 0.03 ng/mL (< 0.04); eGFR For African Americans > 60 (> 60); eGFR For Non-African Americans > 60 (> 60)
[2019-06-29 16:36] LABS: Bilirubin,Urine Negative (Negative); Blood,Urine Negative (Negative); Clarity,Urine Clear (Clear); Color,Urine Yellow (Yellow); Glucose,Urine (UA) Normal (Normal); Ketones,Urine Trace mg/dL (Negative); Leukocyte Esterase,Urine Trace (Negative); Nitrite,Urine Negative (Negative); Protein,Urine Negative (Neg-Trace); Specific Gravity,Urine 1.013 (1.010-1.025); Urobilinogen,Urine Normal (Normal)
[2019-06-29 16:37] LABS: Bacteria,Urine None Seen per hpf (None-Few); Hyaline Casts,Urine None Seen per lpf (None-Few); RBC,Urine 0-3 per hpf (0-3); Squamous Epithelial Cell,Urine Many per lpf (None-Few)
[2019-06-29 16:46] LABS: Amphetamine Screen,Urine Negative ng/mL (Cutoff=1000); Barbiturate Screen,Urine Negative ng/mL (Cutoff=200); Benzodiazepines Screen,Urine Negative ng/mL (Cutoff=200); Cannabinoid Screen,Urine Negative ng/mL (Cutoff = 50); Cocaine Screen,Urine Negative ng/mL (Cutoff= 300); Opiate Screen,Urine Negative ng/mL (Cutoff=300); Phencyclidine Screen,Urine Negative ng/mL (Cutoff=25)
[2019-06-29] MEDS ORDERED: Potassium Chloride Elixir 20 MEQ/15 ML UDC PO ONE (18:08)
[2019-06-29] MEDS ORDERED: Naloxone 0.4 MG/ML INJ IVP PRN (18:11)
[2019-06-29] MEDS ORDERED: *HR* LORazepam 2 MG/ML VIAL IVP PRN (18:16)
[2019-06-29] MEDS: Ipratropium/Albuterol Neb 3 ML IH SCH ×2 (18:30→21:29)
[2019-06-29] MEDS ORDERED: Ipratropium/Albuterol Neb 3 ML ONE (18:39)
[2019-06-29 18:45] LABS: VBG HCO3 32 mEq/L (21-27); VBG PCO2 47 mmHg (41-51); VBG PH 7.44 pH Units (7.32-7.42); VBG PO2 188 mmHg (25-50)
[2019-06-29] MEDS: Doxycycline 100 MG in 0.9 % Sodium Chloride Mini Bag 100 ML IVPB SCH (20:44)
[2019-06-29] MEDS: Thiamine (B-1) 100 MG, Folic Acid 1 MG, MVI, adult with vitamin K 10 ML in 0.9 % Sodi... IVPB SCH (21:47)
[2019-06-29] MEDS: *HR* LORazepam 2 MG/ML VIAL IVP PRN (22:26)
[2019-06-30] MEDS: Ipratropium/Albuterol Neb 3 ML IH SCH ×4 (03:44→22:45)
[2019-06-30 03:57] LABS: Basophils # 0.1 K/mcL (0.0-0.2); Basophils % 0.7 %; Eosinophils # 0.3 K/mcL (0.0-0.6); Eosinophils % 2.5 %; Hematocrit 32.2 % (35.3-44.9); Hemoglobin 10.3 g/dL (11.5-15.4); Lymphocytes # 1.6 K/mcL (0.6-4.6); Lymphocytes % 15.8 %; Mean Corpuscular Hemoglobin 30.6 pg (28.0-33.3); Mean Corpuscular Volume 95.5 fL (83.0-100.0); Mean Platelet Volume 10.8 fL (9.4-12.4); Monocytes # 0.7 K/mcL (0.0-1.3); Monocytes % 7.1 %; Neutrophils # 7.5 K/mcL (1.6-8.9); Platelet Count 238 K/mcL (140-400); Red Blood Count 3.37 M/mcL (3.82-4.97); Red Cell Distribution Width 17.7 % (11.5-14.5); Segmented Neutrophils % 72.9 %; White Blood Count 10.2 K/mcL (4.3-11.1)
[2019-06-30 04:18] LABS: Alanine Aminotransferase 9 Units/L (7-52); Albumin 2.9 g/dL (3.5-5.7); Alkaline Phosphatase 147 Units/L (34-104); Aspartate Amino Transferase 22 Units/L (13-39); BUN/Creatinine Ratio 14 (6-26); Bilirubin,Total 0.2 mg/dL (0.3-1.0); Blood Urea Nitrogen 6 mg/dL (8-23); Carbon Dioxide 28 mEq/L (23-29); Chloride 102 mEq/L (98-107); Globulin 2.9 g/dL (2.4-3.5); Glucose 53 mg/dL (70-105); Magnesium 1.5 mg/dL (1.6-2.6); Osmolality,Calculated 285 (280-300); Potassium 3.3 mEq/L (3.5-5.1); Sodium 140 mEq/L (136-145); Total Protein 5.8 g/dL (6.4-8.9); eGFR For African Americans > 60 (> 60); eGFR For Non-African Americans > 60 (> 60)
[2019-06-30] MEDS: Doxycycline 100 MG in 0.9 % Sodium Chloride Mini Bag 100 ML IVPB SCH ×2 (05:36→17:22)
[2019-06-30] MEDS: *HR* LORazepam 2 MG/ML VIAL IVP PRN ×3 (05:49→16:31)
[2019-06-30] MEDS ORDERED: Dextrose Gel 15 GM/37.5 ML TUBE PO PRN ×2 (08:55)
[2019-06-30] MEDS ORDERED: D5% in Water 1,000 ML IVC PRN (08:55)
[2019-06-30] MEDS ORDERED: *HR* Dextrose 50 % in Water (Syg) 50 ML SYRINGE IVP PRN (08:55)
[2019-06-30] MEDS ORDERED: methylPREDNISolone 125 MG/2 ML VIAL IVP ONE (09:15)
[2019-06-30] MEDS ORDERED: 0.9 % Sodium Chloride 500 ML IVC ONE (09:24)
[2019-06-30] MEDS ORDERED: 0.9 % Sodium Chloride 500 ML ONE (09:31)
[2019-06-30 10:05] LABS: ABG Base Excess 1 mEq/L (-2 to 3); ABG HCO3 27 mEq/L (21-27); ABG Oxygen Saturation 90 % (95-98); ABG PCO2 50 mmHg (35-45); ABG PH 7.35 pH Units (7.32-7.45); ABG PO2 63 mmHg (85-104); ABG TCO2 29 mEq/L (20-26)
[2019-06-30] MEDS ORDERED: predniSONE 20 MG TABLET PO SCH (11:30)
[2019-06-30] MEDS: Piperacillin/Tazobactam 3.375 GM in 0.9 % Sodium Chloride Mini Bag 100 ML IVPB SCH ×2 (12:03→18:48)
[2019-06-30] MEDS: MethylPREDNISolone 40 MG/ML VIAL IVP SCH (17:22)
[2019-06-30] MEDS: *HR* Heparin 5,000 UNIT/ML VIAL SQ SCH (17:23)
[2019-06-30] MEDS: Budesonide/Formoterol 160/4.5 1 PUFF INH IH SCH (22:45)
[2019-06-30] MEDS: Thiamine (B-1) 100 MG, Folic Acid 1 MG, MVI, adult with vitamin K 10 ML in 0.9 % Sodi... IVPB SCH (22:58)
[2019-07-01 02:06] LABS: Folate > 22.3 ng/mL (3.0-16.0); Vitamin B12 1089 pg/mL (250-1100)
[2019-07-01] MEDS: *HR* LORazepam 2 MG/ML VIAL IVP PRN (02:55)
[2019-07-01] MEDS: Piperacillin/Tazobactam 3.375 GM in 0.9 % Sodium Chloride Mini Bag 100 ML IVPB SCH ×3 (03:02→20:55)
[2019-07-01] MEDS: Ipratropium/Albuterol Neb 3 ML IH SCH ×4 (03:48→22:08)
[2019-07-01] MEDS: MethylPREDNISolone 40 MG/ML VIAL IVP SCH ×2 (05:08→17:22)
[2019-07-01] MEDS: Doxycycline 100 MG in 0.9 % Sodium Chloride Mini Bag 100 ML IVPB SCH (05:09)
[2019-07-01] MEDS: *HR* Heparin 5,000 UNIT/ML VIAL SQ SCH ×2 (05:09→17:22)
[2019-07-01 08:51] LABS: VBG HCO3 19 mEq/L (21-27); VBG PCO2 34 mmHg (41-51); VBG PH 7.36 pH Units (7.32-7.42); VBG PO2 135 mmHg (25-50)
[2019-07-01 08:56] LABS: Basophils % 0.3 %; Hematocrit 32.5 % (35.3-44.9); Hemoglobin 10.2 g/dL (11.5-15.4); Immature Granulocytes % 1.9 % (0-4); Lymphocytes # 0.8 K/mcL (0.6-4.6); Lymphocytes % 8.6 %; Mean Corpuscular HGB Conc 31.4 g/dL (31.6-35.5); Mean Corpuscular Hemoglobin 30.7 pg (28.0-33.3); Mean Corpuscular Volume 97.9 fL (83.0-100.0); Mean Platelet Volume 10.1 fL (9.4-12.4); Monocytes # 0.4 K/mcL (0.0-1.3); Monocytes % 4.2 %; Platelet Count 334 K/mcL (140-400); Red Blood Count 3.32 M/mcL (3.82-4.97); Red Cell Distribution Width 17.3 % (11.5-14.5); White Blood Count 9.4 K/mcL (4.3-11.1)
[2019-07-01 09:09] LABS: BUN/Creatinine Ratio 17 (6-26); Blood Urea Nitrogen 7 mg/dL (8-23); Calcium 8.7 mg/dL (8.6-10.3); Carbon Dioxide 19 mEq/L (23-29); Chloride 110 mEq/L (98-107); Glucose 127 mg/dL (70-105); Magnesium 1.5 mg/dL (1.6-2.6); Osmolality,Calculated 300 (280-300); Potassium 3.7 mEq/L (3.5-5.1); Sodium 145 mEq/L (136-145); eGFR For African Americans > 60 (> 60); eGFR For Non-African Americans > 60 (> 60)
[2019-07-01] MEDS: Budesonide/Formoterol 160/4.5 1 PUFF INH IH SCH ×2 (11:02→22:08)
[2019-07-01] MEDS: Thiamine (B-1) 100 MG, Folic Acid 1 MG, MVI, adult with vitamin K 10 ML in 0.9 % Sodi... IVPB SCH (17:22)
[2019-07-02] MEDS: Piperacillin/Tazobactam 3.375 GM in 0.9 % Sodium Chloride Mini Bag 100 ML IVPB SCH ×3 (03:57→20:39)
[2019-07-02 04:19] LABS: Basophils % 0.3 %; Hematocrit 29.2 % (35.3-44.9); Hemoglobin 9.5 g/dL (11.5-15.4); Immature Granulocytes % 0.7 % (0-4); Lymphocytes # 1.1 K/mcL (0.6-4.6); Lymphocytes % 11.8 %; Mean Corpuscular HGB Conc 32.5 g/dL (31.6-35.5); Mean Corpuscular Hemoglobin 31.5 pg (28.0-33.3); Mean Corpuscular Volume 96.7 fL (83.0-100.0); Mean Platelet Volume 8.9 fL (9.4-12.4); Monocytes # 0.8 K/mcL (0.0-1.3); Monocytes % 8.5 %; Neutrophils # 7.5 K/mcL (1.6-8.9); Platelet Count 306 K/mcL (140-400); Red Blood Count 3.02 M/mcL (3.82-4.97); Red Cell Distribution Width 17.5 % (11.5-14.5); Segmented Neutrophils % 78.7 %; White Blood Count 9.6 K/mcL (4.3-11.1)
[2019-07-02 04:20] LABS: VBG HCO3 26 mEq/L (21-27); VBG PCO2 45 mmHg (41-51); VBG PH 7.37 pH Units (7.32-7.42); VBG PO2 150 mmHg (25-50)
[2019-07-02 04:35] LABS: BUN/Creatinine Ratio 15 (6-26); Blood Urea Nitrogen 5 mg/dL (8-23); Calcium 8.3 mg/dL (8.6-10.3); Carbon Dioxide 23 mEq/L (23-29); Chloride 107 mEq/L (98-107); Glucose 85 mg/dL (70-105); Magnesium 1.5 mg/dL (1.6-2.6); Osmolality,Calculated 287 (280-300); Potassium 3.3 mEq/L (3.5-5.1); Sodium 140 mEq/L (136-145); eGFR For African Americans > 60 (> 60); eGFR For Non-African Americans > 60 (> 60)
[2019-07-02] MEDS: Ipratropium/Albuterol Neb 3 ML IH SCH ×4 (04:37→22:42)
[2019-07-02] MEDS: *HR* Heparin 5,000 UNIT/ML VIAL SQ SCH ×2 (06:14→16:54)
[2019-07-02] MEDS: MethylPREDNISolone 40 MG/ML VIAL IVP SCH ×2 (06:14→16:54)
[2019-07-02] MEDS: Budesonide/Formoterol 160/4.5 1 PUFF INH IH SCH ×2 (10:38→22:42)
[2019-07-02] MEDS ORDERED: traZODone 50 MG TABLET PO ONE (22:21)
[2019-07-03] MEDS: Piperacillin/Tazobactam 3.375 GM in 0.9 % Sodium Chloride Mini Bag 100 ML IVPB SCH ×3 (02:55→18:17)
[2019-07-03 03:08] LABS: Basophils % 0.1 %; Hematocrit 31.9 % (35.3-44.9); Hemoglobin 10.6 g/dL (11.5-15.4); Immature Granulocytes % 0.5 % (0-4); Lymphocytes # 0.9 K/mcL (0.6-4.6); Lymphocytes % 11.7 %; Mean Corpuscular HGB Conc 33.2 g/dL (31.6-35.5); Mean Corpuscular Volume 93.3 fL (83.0-100.0); Mean Platelet Volume 9.3 fL (9.4-12.4); Monocytes # 0.8 K/mcL (0.0-1.3); Monocytes % 11.1 %; Neutrophils # 5.7 K/mcL (1.6-8.9); Platelet Count 273 K/mcL (140-400); Red Blood Count 3.42 M/mcL (3.82-4.97); Red Cell Distribution Width 16.9 % (11.5-14.5); Segmented Neutrophils % 76.6 %; White Blood Count 7.5 K/mcL (4.3-11.1)
[2019-07-03 03:28] LABS: BUN/Creatinine Ratio 6 (6-26); Blood Urea Nitrogen 2 mg/dL (8-23); Calcium 8.5 mg/dL (8.6-10.3); Carbon Dioxide 33 mEq/L (23-29); Chloride 97 mEq/L (98-107); Glucose 135 mg/dL (70-105); Magnesium 1.7 mg/dL (1.6-2.6); Osmolality,Calculated 280 (280-300); Potassium 3.2 mEq/L (3.5-5.1); Sodium 136 mEq/L (136-145); eGFR For African Americans > 60 (> 60); eGFR For Non-African Americans > 60 (> 60)
[2019-07-03] MEDS: Ipratropium/Albuterol Neb 3 ML IH SCH ×4 (04:21→22:41)
[2019-07-03] MEDS: *HR* Heparin 5,000 UNIT/ML VIAL SQ SCH ×2 (06:10→17:08)
[2019-07-03] MEDS: Thiamine (B-1) 100 MG TABLET PO SCH (08:53)
[2019-07-03] MEDS: Folic Acid 1 MG TABLET PO SCH (08:53)
[2019-07-03] MEDS: Multivit/Ca/Min/Fe/FA 1 TAB TABLET PO SCH (08:53)
[2019-07-03] MEDS: MethylPREDNISolone 40 MG/ML VIAL IVP SCH (08:54)
[2019-07-03] MEDS ORDERED: Ondansetron 4 MG/2 ML VIAL IVP PRN (09:22)
[2019-07-03] MEDS: Budesonide/Formoterol 160/4.5 1 PUFF INH IH SCH ×2 (10:44→22:41)
[2019-07-03] MEDS: Ibuprofen 400 MG TABLET PO PRN (15:11)
[2019-07-03] MEDS ORDERED: Menthol 9.1 MG LOZENGE PO PRN (20:00)
[2019-07-03] MEDS ORDERED: Mirtazapine 15 MG TABLET PO SCH (21:00)
[2019-07-04] MEDS: Piperacillin/Tazobactam 3.375 GM in 0.9 % Sodium Chloride Mini Bag 100 ML IVPB SCH (03:16)
[2019-07-04 03:40] LABS: Basophils % 0.1 %; Eosinophils % 0.1 %; Hematocrit 32.3 % (35.3-44.9); Hemoglobin 11.1 g/dL (11.5-15.4); Immature Granulocytes % 0.5 % (0-4); Lymphocytes # 2.1 K/mcL (0.6-4.6); Lymphocytes % 20.6 %; Mean Corpuscular HGB Conc 34.4 g/dL (31.6-35.5); Mean Corpuscular Hemoglobin 31.4 pg (28.0-33.3); Mean Corpuscular Volume 91.5 fL (83.0-100.0); Mean Platelet Volume 10.8 fL (9.4-12.4); Monocytes # 1.2 K/mcL (0.0-1.3); Monocytes % 11.6 %; Neutrophils # 6.8 K/mcL (1.6-8.9); Platelet Count 151 K/mcL (140-400); Red Blood Count 3.53 M/mcL (3.82-4.97); Red Cell Distribution Width 16.2 % (11.5-14.5); Segmented Neutrophils % 67.1 %; White Blood Count 10.1 K/mcL (4.3-11.1)
[2019-07-04] MEDS: Ipratropium/Albuterol Neb 3 ML IH SCH ×2 (03:50→10:52)
[2019-07-04 04:00] LABS: BUN/Creatinine Ratio 14 (6-26); Blood Urea Nitrogen 6 mg/dL (8-23); Calcium 8.7 mg/dL (8.6-10.3); Carbon Dioxide 32 mEq/L (23-29); Chloride 96 mEq/L (98-107); Glucose 93 mg/dL (70-105); Osmolality,Calculated 277 (280-300); Potassium 3.3 mEq/L (3.5-5.1); Sodium 135 mEq/L (136-145); eGFR For African Americans > 60 (> 60); eGFR For Non-African Americans > 60 (> 60)
[2019-07-04] MEDS: *HR* Heparin 5,000 UNIT/ML VIAL SQ SCH (06:18)
[2019-07-04 07:57] VITALS: BP 153/79
[2019-07-04] MEDS: Thiamine (B-1) 100 MG TABLET PO SCH (08:35)
[2019-07-04] MEDS: Ibuprofen 400 MG TABLET PO PRN (08:35)
[2019-07-04] MEDS: Folic Acid 1 MG TABLET PO SCH (08:35)
[2019-07-04] MEDS: MethylPREDNISolone 40 MG/ML VIAL IVP SCH (08:35)
[2019-07-04] MEDS: Multivit/Ca/Min/Fe/FA 1 TAB TABLET PO SCH (08:36)
[2019-07-04] MEDS ORDERED: FLU Vac QV 19-20 (6Month+)/PF 0.5 ML SYRINGE IM ONE (08:44)
[2019-07-04] MEDS: Budesonide/Formoterol 160/4.5 1 PUFF INH IH SCH (10:52)
== END 2019-07-04 11:12 | disposition home health service (06) | DRG 189 ==
LOC: EMEROOARM 14:40 → 3BNU 14:40 → SUATTDRO 19:17 → 3BNU 19:56 → SUATTDRO 06-30 11:39 → 2NNU 06-30 15:37 → 2ANU 07-02 12:11
PROVIDERS: ADMIT Internal Medicine; ATTEND Internal Medicine

== ENCOUNTER 2019-07-21 16:19 | Inpatient (IN) ==
[2019-07-21] MEDS ORDERED: Ipratropium/Albuterol Neb 3 ML IH ONE (16:29)
[2019-07-21] MEDS ORDERED: methylPREDNISolone 125 MG/2 ML VIAL IVP ONE (16:29)
[2019-07-21 17:30] LABS: Basophils % 0.1 %; Eosinophils # 0.1 K/mcL (0.0-0.6); Eosinophils % 0.3 %; Hematocrit 32.2 % (35.3-44.9); Hemoglobin 11.6 g/dL (11.5-15.4); Immature Granulocytes % 1.3 % (0-4); Lymphocytes # 1.4 K/mcL (0.6-4.6); Lymphocytes % 5.8 %; Mean Corpuscular Hemoglobin 33.3 pg (28.0-33.3); Mean Corpuscular Volume 92.5 fL (83.0-100.0); Mean Platelet Volume 9.7 fL (9.4-12.4); Monocytes # 0.7 K/mcL (0.0-1.3); Monocytes % 3.1 %; Platelet Count 183 K/mcL (140-400); Red Blood Count 3.48 M/mcL (3.82-4.97); Red Cell Distribution Width 18.7 % (11.5-14.5); Segmented Neutrophils % 89.4 %; White Blood Count 23.5 K/mcL (4.3-11.1)
[2019-07-21 17:58] LABS: BUN/Creatinine Ratio 39 (6-26); Blood Urea Nitrogen 18 mg/dL (8-23); Calcium 7.9 mg/dL (8.6-10.3); Carbon Dioxide 23 mEq/L (23-29); Chloride 90 mEq/L (98-107); Glucose 144 mg/dL (70-105); Osmolality,Calculated 254 (280-300); Potassium 3.8 mEq/L (3.5-5.1); Sodium 120 mEq/L (136-145); Troponin I < 0.03 ng/mL (< 0.04); eGFR For African Americans > 60 (> 60); eGFR For Non-African Americans > 60 (> 60)
[2019-07-21] MEDS ORDERED: Piperacillin/Tazobactam 3.375 GM in 0.9 % Sodium Chloride Mini Bag 100 ML IVPB ONE (18:00)
[2019-07-21] MEDS ORDERED: 0.9 % Sodium Chloride 500 ML IVC ONE (18:17)
[2019-07-21] MEDS ORDERED: Naloxone 0.4 MG/ML INJ IVP PRN (19:45)
[2019-07-21] MEDS ORDERED: Ondansetron 4 MG/2 ML VIAL IVP PRN (19:45)
[2019-07-21] MEDS ORDERED: 0.9 % Sodium Chloride 1,000 ML IVC SCH (19:45)
[2019-07-21] MEDS ORDERED: *HR* LORazepam 2 MG/ML VIAL IVP PRN ×3 (19:52)
[2019-07-21] MEDS: Nicotine 7 MG PATCH.TD24 TD SCH (20:23)
[2019-07-21] MEDS: Ipratropium/Albuterol Neb 3 ML IH SCH (21:50)
[2019-07-21 22:22] LABS: ABG Base Excess 0 mEq/L (-2 to 3); ABG HCO3 28 mEq/L (21-27); ABG Oxygen Saturation 94 % (95-98); ABG PCO2 60 mmHg (35-45); ABG PH 7.28 pH Units (7.32-7.45); ABG PO2 82 mmHg (85-104); ABG TCO2 30 mEq/L (20-26)
[2019-07-21] MEDS: MethylPREDNISolone 40 MG/ML VIAL IVP SCH (23:30)
[2019-07-21] MEDS: *HR* Heparin 5,000 UNIT/ML VIAL SQ SCH (23:30)
[2019-07-21] MEDS: Azithromycin 500 MG in 0.9 % Sodium Chloride 250 ML IVPB SCH (23:30)
[2019-07-22] MEDS: Piperacillin/Tazobactam 3.375 GM in 0.9 % Sodium Chloride Mini Bag 100 ML IVPB SCH ×3 (01:47→18:26)
[2019-07-22 02:34] LABS: ABG Base Excess 1 mEq/L (-2 to 3); ABG HCO3 29 mEq/L (21-27); ABG Oxygen Saturation 94 % (95-98); ABG PCO2 56 mmHg (35-45); ABG PH 7.31 pH Units (7.32-7.45); ABG PO2 79 mmHg (85-104); ABG TCO2 30 mEq/L (20-26)
[2019-07-22 03:28] LABS: Lymphocytes # 0.1 K/mcL (0.6-4.6); Lymphocytes % 0.6 %; Mean Corpuscular HGB Conc 34.6 g/dL (31.6-35.5); Mean Corpuscular Hemoglobin 32.9 pg (28.0-33.3); Mean Corpuscular Volume 94.9 fL (83.0-100.0); Monocytes # 0.1 K/mcL (0.0-1.3); Monocytes % 0.4 %; Neutrophils # 21.2 K/mcL (1.6-8.9); Platelet Count 180 K/mcL (140-400); Red Blood Count 2.95 M/mcL (3.82-4.97); Red Cell Distribution Width 18.8 % (11.5-14.5); White Blood Count 21.6 K/mcL (4.3-11.1)
[2019-07-22 03:29] LABS: INR 0.9; Prothrombin Time 10.3 Seconds (9.4-12.1)
[2019-07-22 03:32] LABS: Activated Partial Thrombo Time 26.6 Seconds (26.0-36.0)
[2019-07-22 03:40] LABS: Hemoglobin 9.7 g/dL (11.5-15.4)
[2019-07-22 03:44] LABS: Polychromasia 1+ (Not Present); Stomatocytes 1+ (Not Present)
[2019-07-22 03:45] LABS: Basophilic Stippling 1+ (Not Present); Hypochromasia Present (Not Present); Platelet Estimate Normal (Normal)
[2019-07-22 03:49] LABS: Alanine Aminotransferase 69 Units/L (7-52); Albumin 2.7 g/dL (3.5-5.7); Albumin/Globulin Ratio 1.2 (1.1-2.2); Alkaline Phosphatase 458 Units/L (34-104); Aspartate Amino Transferase 35 Units/L (13-39); BUN/Creatinine Ratio 33 (6-26); Bilirubin,Total 1.4 mg/dL (0.3-1.0); Blood Urea Nitrogen 10 mg/dL (8-23); Calcium 7.5 mg/dL (8.6-10.3); Carbon Dioxide 25 mEq/L (23-29); Chloride 96 mEq/L (98-107); Globulin 2.3 g/dL (2.4-3.5); Glucose 186 mg/dL (70-105); Magnesium 1.4 mg/dL (1.6-2.6); Osmolality,Calculated 270 (280-300); Potassium 3.8 mEq/L (3.5-5.1); Sodium 128 mEq/L (136-145); eGFR For African Americans > 60 (> 60); eGFR For Non-African Americans > 60 (> 60)
[2019-07-22] MEDS: Ipratropium/Albuterol Neb 3 ML IH SCH ×4 (04:10→23:12)
[2019-07-22] MEDS: MethylPREDNISolone 40 MG/ML VIAL IVP SCH ×4 (06:03→23:56)
[2019-07-22] MEDS: Nicotine 7 MG PATCH.TD24 TD SCH (09:47)
[2019-07-22] MEDS: *HR* Heparin 5,000 UNIT/ML VIAL SQ SCH ×3 (09:47→23:56)
[2019-07-22] MEDS: amLODIPine 5 MG TABLET PO SCH (09:47)
[2019-07-22 11:09] LABS: Hemoglobin 10.5 g/dL (11.5-15.4)
[2019-07-22] MEDS: Thiamine (B-1) 100 MG, Folic Acid 1 MG, MVI, adult with vitamin K 10 ML in 0.9 % Sodi... IVPB SCH (18:43)
[2019-07-22] MEDS: Azithromycin 500 MG in 0.9 % Sodium Chloride 250 ML IVPB SCH (21:49)
[2019-07-23] MEDS: Piperacillin/Tazobactam 3.375 GM in 0.9 % Sodium Chloride Mini Bag 100 ML IVPB SCH ×3 (01:59→17:40)
[2019-07-23] MEDS: Ipratropium/Albuterol Neb 3 ML IH SCH ×4 (04:38→22:23)
[2019-07-23] MEDS: MethylPREDNISolone 40 MG/ML VIAL IVP SCH ×2 (06:22→17:40)
[2019-07-23 06:42] LABS: Basophils % 0.1 %; Hematocrit 28.3 % (35.3-44.9); Hemoglobin 10.1 g/dL (11.5-15.4); Immature Granulocytes % 2.1 % (0-4); Lymphocytes # 0.6 K/mcL (0.6-4.6); Mean Corpuscular HGB Conc 35.7 g/dL (31.6-35.5); Mean Corpuscular Hemoglobin 33.7 pg (28.0-33.3); Mean Corpuscular Volume 94.3 fL (83.0-100.0); Mean Platelet Volume 10.7 fL (9.4-12.4); Monocytes # 0.4 K/mcL (0.0-1.3); Monocytes % 2.1 %; Platelet Count 207 K/mcL (140-400); Red Cell Distribution Width 19.6 % (11.5-14.5); Segmented Neutrophils % 92.7 %; White Blood Count 20.4 K/mcL (4.3-11.1)
[2019-07-23 07:02] LABS: BUN/Creatinine Ratio 20 (6-26); Blood Urea Nitrogen 6 mg/dL (8-23); Calcium 7.6 mg/dL (8.6-10.3); Carbon Dioxide 29 mEq/L (23-29); Chloride 99 mEq/L (98-107); Glucose 153 mg/dL (70-105); Osmolality,Calculated 285 (280-300); Potassium 3.2 mEq/L (3.5-5.1); Sodium 137 mEq/L (136-145); eGFR For African Americans > 60 (> 60); eGFR For Non-African Americans > 60 (> 60)
[2019-07-23] MEDS: Nicotine 7 MG PATCH.TD24 TD SCH (09:06)
[2019-07-23] MEDS: amLODIPine 5 MG TABLET PO SCH (09:09)
[2019-07-23] MEDS: *HR* Heparin 5,000 UNIT/ML VIAL SQ SCH ×2 (09:09→16:28)
[2019-07-23] MEDS ORDERED: traMADol 50 MG TABLET PO PRN (09:40)
[2019-07-23] MEDS ORDERED: Ketorolac 15 MG/ML VIAL IVP PRN (11:16)
[2019-07-23 12:29] LABS: Hemoglobin 10.3 g/dL (11.5-15.4)
[2019-07-23] MEDS ORDERED: Potassium Chloride Elixir 20 MEQ/15 ML UDC PO ONE (14:15)
[2019-07-23 15:08] LABS: VBG Ionized Calcium 1.02 mmol/L (1.15-1.35)
[2019-07-23] MEDS: traMADol 50 MG TABLET PO PRN (16:38)
[2019-07-23] MEDS: Thiamine (B-1) 100 MG, Folic Acid 1 MG, MVI, adult with vitamin K 10 ML in 0.9 % Sodi... IVPB SCH (17:39)
[2019-07-23] MEDS ORDERED: *HR* LORazepam 2 MG/ML VIAL IVP ONE (20:59)
[2019-07-23] MEDS: Azithromycin 500 MG in 0.9 % Sodium Chloride 250 ML IVPB SCH (21:28)
[2019-07-23] MEDS ORDERED: traZODone 50 MG TABLET PO ONE (23:12)
[2019-07-24] MEDS: Piperacillin/Tazobactam 3.375 GM in 0.9 % Sodium Chloride Mini Bag 100 ML IVPB SCH ×2 (02:06→11:02)
[2019-07-24 04:04] LABS: Basophils % 0.1 %; Hemoglobin 9.2 g/dL (11.5-15.4); Immature Granulocytes % 1.6 % (0-4); Lymphocytes # 0.6 K/mcL (0.6-4.6); Lymphocytes % 3.2 %; Mean Corpuscular HGB Conc 34.1 g/dL (31.6-35.5); Mean Corpuscular Hemoglobin 33.2 pg (28.0-33.3); Mean Corpuscular Volume 97.5 fL (83.0-100.0); Mean Platelet Volume 10.6 fL (9.4-12.4); Monocytes # 0.5 K/mcL (0.0-1.3); Monocytes % 2.6 %; Neutrophils # 17.1 K/mcL (1.6-8.9); Platelet Count 196 K/mcL (140-400); Red Blood Count 2.77 M/mcL (3.82-4.97); Red Cell Distribution Width 18.9 % (11.5-14.5); Segmented Neutrophils % 92.5 %; White Blood Count 18.5 K/mcL (4.3-11.1)
[2019-07-24] MEDS: Ipratropium/Albuterol Neb 3 ML IH SCH ×4 (04:04→22:27)
[2019-07-24 04:10] LABS: BUN/Creatinine Ratio 18 (6-26); Blood Urea Nitrogen 5 mg/dL (8-23); Calcium 7.5 mg/dL (8.6-10.3); Carbon Dioxide 32 mEq/L (23-29); Chloride 99 mEq/L (98-107); Glucose 146 mg/dL (70-105); Osmolality,Calculated 280 (280-300); Potassium 3.2 mEq/L (3.5-5.1); Sodium 135 mEq/L (136-145); eGFR For African Americans > 60 (> 60); eGFR For Non-African Americans > 60 (> 60)
[2019-07-24] MEDS: MethylPREDNISolone 40 MG/ML VIAL IVP SCH ×2 (05:20→17:35)
[2019-07-24 08:08] LABS: ABG Base Excess 10 mEq/L (-2 to 3); ABG HCO3 36 mEq/L (21-27); ABG Oxygen Saturation 95 % (95-98); ABG PCO2 55 mmHg (35-45); ABG PH 7.43 pH Units (7.32-7.45); ABG PO2 75 mmHg (85-104); ABG TCO2 38 mEq/L (20-26)
[2019-07-24] MEDS: amLODIPine 5 MG TABLET PO SCH (09:54)
[2019-07-24] MEDS: Nicotine 7 MG PATCH.TD24 TD SCH (09:54)
[2019-07-24] MEDS ORDERED: Calcium Gluconate 2,000 MG in 0.9 % Sodium Chloride 100 ML IVPB ONE (15:15)
[2019-07-24] MEDS: Thiamine (B-1) 100 MG, Folic Acid 1 MG, MVI, adult with vitamin K 10 ML in 0.9 % Sodi... IVPB SCH (17:46)
[2019-07-24] MEDS: Azithromycin 500 MG in 0.9 % Sodium Chloride 250 ML IVPB SCH (23:29)
[2019-07-25] MEDS: traMADol 50 MG TABLET PO PRN (00:35)
[2019-07-25] MEDS: Piperacillin/Tazobactam 3.375 GM in 0.9 % Sodium Chloride Mini Bag 100 ML IVPB SCH ×2 (00:38→09:57)
[2019-07-25] MEDS: Ipratropium/Albuterol Neb 3 ML IH SCH ×4 (04:00→22:21)
[2019-07-25 04:54] LABS: Basophils % 0.1 %; Hematocrit 26.9 % (35.3-44.9); Hemoglobin 8.9 g/dL (11.5-15.4); Immature Granulocytes % 2.6 % (0-4); Lymphocytes # 1.3 K/mcL (0.6-4.6); Lymphocytes % 9.1 %; Mean Corpuscular HGB Conc 33.1 g/dL (31.6-35.5); Mean Corpuscular Hemoglobin 32.7 pg (28.0-33.3); Mean Corpuscular Volume 98.9 fL (83.0-100.0); Mean Platelet Volume 10.4 fL (9.4-12.4); Monocytes # 0.6 K/mcL (0.0-1.3); Monocytes % 3.9 %; Neutrophils # 12.2 K/mcL (1.6-8.9); Nucleated Red Blood Cells 0.1 /100 WBC (0); Platelet Count 179 K/mcL (140-400); Red Blood Count 2.72 M/mcL (3.82-4.97); Segmented Neutrophils % 84.3 %; White Blood Count 14.5 K/mcL (4.3-11.1)
[2019-07-25 04:57] LABS: VBG Ionized Calcium 0.99 mmol/L (1.15-1.35)
[2019-07-25 05:11] LABS: Magnesium 1.3 mg/dL (1.6-2.6); Phosphorous 1.4 mg/dL (2.7-4.5)
[2019-07-25 05:13] LABS: BUN/Creatinine Ratio 13 (6-26); Blood Urea Nitrogen 3 mg/dL (8-23); Calcium 7.6 mg/dL (8.6-10.3); Carbon Dioxide 42 mEq/L (23-29); Chloride 89 mEq/L (98-107); Glucose 110 mg/dL (70-105); Osmolality,Calculated 275 (280-300); Potassium 3.2 mEq/L (3.5-5.1); Sodium 134 mEq/L (136-145); eGFR For African Americans > 60 (> 60); eGFR For Non-African Americans > 60 (> 60)
[2019-07-25] MEDS ORDERED: Aminoglycoside Consult 1 EACH MC ONE (09:35)
[2019-07-25] MEDS: MethylPREDNISolone 40 MG/ML VIAL IVP SCH (09:57)
[2019-07-25] MEDS: Calcium Gluconate 1gm/50mL 1 GM/50 ML BAG IVPB SCH ×4 (10:01→14:31)
[2019-07-25] MEDS: Nicotine 7 MG PATCH.TD24 TD SCH (10:04)
[2019-07-25] MEDS: amLODIPine 5 MG TABLET PO SCH (10:04)
[2019-07-25 12:45] LABS: Hematocrit 28.1 % (35.3-44.9); Hemoglobin 9.6 g/dL (11.5-15.4)
[2019-07-25 13:03] LABS: % Iron Saturation 38 % (15-50); Iron 50 mcg/dL (50-170); Transferrin 93 mg/dL (203-362)
[2019-07-25] MEDS: predniSONE 20 MG TABLET PO SCH (16:22)
[2019-07-25] MEDS: Azithromycin 500 MG in 0.9 % Sodium Chloride 250 ML IVPB SCH (22:46)
[2019-07-26] MEDS: Ipratropium/Albuterol Neb 3 ML IH SCH ×4 (04:04→22:55)
[2019-07-26 05:55] LABS: VBG Ionized Calcium 0.97 mmol/L (1.15-1.35)
[2019-07-26 06:01] LABS: Basophils % 0.1 %; Eosinophils % 0.1 %; Hematocrit 29.4 % (35.3-44.9); Hemoglobin 9.7 g/dL (11.5-15.4); Immature Granulocytes % 2.2 % (0-4); Lymphocytes # 1.8 K/mcL (0.6-4.6); Lymphocytes % 11.2 %; Mean Corpuscular Hemoglobin 32.7 pg (28.0-33.3); Mean Platelet Volume 10.1 fL (9.4-12.4); Monocytes # 0.7 K/mcL (0.0-1.3); Monocytes % 4.3 %; Neutrophils # 13.2 K/mcL (1.6-8.9); Platelet Count 195 K/mcL (140-400); Red Blood Count 2.97 M/mcL (3.82-4.97); Red Cell Distribution Width 17.6 % (11.5-14.5); Segmented Neutrophils % 82.1 %; White Blood Count 16.1 K/mcL (4.3-11.1)
[2019-07-26 06:31] LABS: BUN/Creatinine Ratio 13 (6-26); Blood Urea Nitrogen 3 mg/dL (8-23); Calcium 8.1 mg/dL (8.6-10.3); Carbon Dioxide 42 mEq/L (23-29); Chloride 86 mEq/L (98-107); Glucose 81 mg/dL (70-105); Magnesium 1.4 mg/dL (1.6-2.6); Osmolality,Calculated 274 (280-300); Phosphorous 3.4 mg/dL (2.7-4.5); Potassium 3.3 mEq/L (3.5-5.1); Sodium 134 mEq/L (136-145); eGFR For African Americans > 60 (> 60); eGFR For Non-African Americans > 60 (> 60)
[2019-07-26] MEDS: Lactobacillus 1 EACH CAP.SPRINK PO SCH (09:43)
[2019-07-26] MEDS: predniSONE 20 MG TABLET PO SCH (09:43)
[2019-07-26] MEDS: Folic Acid 1 MG TABLET PO SCH (09:43)
[2019-07-26] MEDS: Thiamine (B-1) 100 MG TABLET PO SCH (09:43)
[2019-07-26] MEDS: traMADol 50 MG TABLET PO PRN (09:44)
[2019-07-26] MEDS: amLODIPine 5 MG TABLET PO SCH (09:44)
[2019-07-26] MEDS: Nicotine 7 MG PATCH.TD24 TD SCH (09:48)
[2019-07-26] MEDS ORDERED: Ipratropium/Albuterol Neb 3 ML IH PRN (15:48)
[2019-07-26] MEDS ORDERED: tiZANidine 4 MG TABLET PO PRN (15:48)
[2019-07-26] MEDS: *HR* Heparin 5,000 UNIT/ML VIAL SQ SCH (17:48)
[2019-07-26] MEDS ORDERED: *HR* OxyCODONE/APAP 5/325 TABLET PO PRN (18:53)
[2019-07-26] MEDS ORDERED: *HR* Metoprolol 5 MG/5 ML VIAL IVP PRN (18:59)
[2019-07-26] MEDS: Gabapentin 300 MG CAPSULE PO SCH (20:17)
[2019-07-26] MEDS ORDERED: Mirtazapine 15 MG TABLET PO SCH (21:00)
[2019-07-26] MEDS ORDERED: traZODone 50 MG TABLET PO SCH (21:00)
[2019-07-26] MEDS: Budesonide/Formoterol 160/4.5 1 PUFF INH IH SCH (22:55)
[2019-07-27] MEDS ORDERED: Melatonin 3 MG TABLET PO PRN (01:56)
[2019-07-27] MEDS: Ipratropium/Albuterol Neb 3 ML IH SCH ×2 (03:41→10:49)
[2019-07-27 04:47] VITALS: BP 132/85
[2019-07-27 05:12] LABS: Basophils % 0.2 %; Eosinophils # 0.1 K/mcL (0.0-0.6); Eosinophils % 0.3 %; Hematocrit 27.1 % (35.3-44.9); Hemoglobin 9.1 g/dL (11.5-15.4); Immature Granulocytes % 1.6 % (0-4); Lymphocytes # 2.2 K/mcL (0.6-4.6); Lymphocytes % 10.9 %; Mean Corpuscular HGB Conc 33.6 g/dL (31.6-35.5); Mean Corpuscular Hemoglobin 32.6 pg (28.0-33.3); Mean Corpuscular Volume 97.1 fL (83.0-100.0); Monocytes % 4.9 %; Neutrophils # 16.7 K/mcL (1.6-8.9); Nucleated Red Blood Cells 0.1 /100 WBC (0); Platelet Count 116 K/mcL (140-400); Red Blood Count 2.79 M/mcL (3.82-4.97); Red Cell Distribution Width 17.6 % (11.5-14.5); Segmented Neutrophils % 82.1 %; White Blood Count 20.4 K/mcL (4.3-11.1)
[2019-07-27 05:36] LABS: BUN/Creatinine Ratio 15 (6-26); Blood Urea Nitrogen 8 mg/dL (8-23); Calcium 8.2 mg/dL (8.6-10.3); Carbon Dioxide 38 mEq/L (23-29); Chloride 90 mEq/L (98-107); Glucose 115 mg/dL (70-105); Osmolality,Calculated 275 (280-300); Potassium 4.7 mEq/L (3.5-5.1); Sodium 133 mEq/L (136-145); eGFR For African Americans > 60 (> 60); eGFR For Non-African Americans > 60 (> 60)
[2019-07-27] MEDS: *HR* Heparin 5,000 UNIT/ML VIAL SQ SCH (06:04)
[2019-07-27] MEDS: Thiamine (B-1) 100 MG TABLET PO SCH (08:18)
[2019-07-27] MEDS: predniSONE 20 MG TABLET PO SCH (08:19)
[2019-07-27] MEDS: Lactobacillus 1 EACH CAP.SPRINK PO SCH (08:19)
[2019-07-27] MEDS: amLODIPine 5 MG TABLET PO SCH (08:20)
[2019-07-27] MEDS: Gabapentin 300 MG CAPSULE PO SCH (08:20)
[2019-07-27] MEDS: Folic Acid 1 MG TABLET PO SCH (08:21)
[2019-07-27] MEDS: Nicotine 7 MG PATCH.TD24 TD SCH (08:22)
[2019-07-27] MEDS ORDERED: Cyanocobalamin (B-12) 1,000 MCG TABLET PO SCH (09:00)
[2019-07-27] MEDS ORDERED: Cholecalciferol (D-3) 1,000 UNIT (25MCG) TABLET PO SCH (09:00)
[2019-07-27] MEDS: Budesonide/Formoterol 160/4.5 1 PUFF INH IH SCH (10:49)
== END 2019-07-27 13:18 | disposition home health service (06) | DRG 871 ==
LOC: 2NENU 16:19 → EMEROOARM 16:19 → 2NENU 19:32 → SUATTDRO 19:45
PROVIDERS: ADMIT Student in an Organized Health Care Education/Training Program; ATTEND Internal Medicine

== ENCOUNTER 2019-08-10 15:47 | Inpatient (IN) ==
[2019-08-10] MEDS ORDERED: 0.9 % Sodium Chloride 1,000 ML IVC ONE (15:58)
[2019-08-10 16:19] LABS: Basophils % 0.1 %; Eosinophils % 0.1 %; Hematocrit 30.9 % (35.3-44.9); Hemoglobin 10.8 g/dL (11.5-15.4); Immature Granulocytes % 1.1 % (0-4); Lymphocytes # 0.6 K/mcL (0.6-4.6); Lymphocytes % 4.4 %; Mean Corpuscular Hemoglobin 33.9 pg (28.0-33.3); Mean Corpuscular Volume 96.9 fL (83.0-100.0); Mean Platelet Volume 9.8 fL (9.4-12.4); Monocytes # 0.7 K/mcL (0.0-1.3); Monocytes % 5.5 %; Platelet Count 314 K/mcL (140-400); Red Blood Count 3.19 M/mcL (3.82-4.97); Red Cell Distribution Width 16.9 % (11.5-14.5); Segmented Neutrophils % 88.8 %; White Blood Count 13.5 K/mcL (4.3-11.1)
[2019-08-10 16:24] LABS: Bilirubin,Urine Moderate (Negative); Blood,Urine Negative (Negative); Clarity,Urine Clear (Clear); Color,Urine Yellow (Yellow); Glucose,Urine (UA) Normal (Normal); Ketones,Urine 40 mg/dL (Negative); Leukocyte Esterase,Urine Negative (Negative); Nitrite,Urine Negative (Negative); PH,Urine 5.5 pH Units (5.0-8.0); Protein,Urine Negative (Neg-Trace); Specific Gravity,Urine 1.015 (1.010-1.025); Urobilinogen,Urine Normal (Normal)
[2019-08-10 16:44] LABS: Alanine Aminotransferase 24 Units/L (7-52); Albumin 3.4 g/dL (3.5-5.7); Albumin/Globulin Ratio 1.3 (1.1-2.2); Alkaline Phosphatase 136 Units/L (34-104); Aspartate Amino Transferase 34 Units/L (13-39); BUN/Creatinine Ratio 27 (6-26); Bilirubin,Total 0.4 mg/dL (0.3-1.0); Blood Urea Nitrogen 15 mg/dL (8-23); Calcium 8.6 mg/dL (8.6-10.3); Carbon Dioxide 25 mEq/L (23-29); Chloride 82 mEq/L (98-107); Creatine Kinase 10 Units/L (30-223); Globulin 2.7 g/dL (2.4-3.5); Glucose 85 mg/dL (70-105); Osmolality,Calculated 252 (280-300); Potassium 3.8 mEq/L (3.5-5.1); Sodium 121 mEq/L (136-145); Total Protein 6.1 g/dL (6.4-8.9); Troponin I 0.03 ng/mL (< 0.04); eGFR For African Americans > 60 (> 60); eGFR For Non-African Americans > 60 (> 60)
[2019-08-10 16:58] LABS: Thyroid Stimulating Hormone 3.389 mcIU/mL (0.340-5.600)
[2019-08-10] MEDS ORDERED: 0.9 % Sodium Chloride 500 ML IVC ONE (17:04)
[2019-08-10 17:54] LABS: VBG HCO3 28 mEq/L (21-27); VBG PCO2 53 mmHg (41-51); VBG PH 7.33 pH Units (7.32-7.42); VBG PO2 173 mmHg (25-50)
[2019-08-10 18:07] LABS: BUN/Creatinine Ratio 29 (6-26); Blood Urea Nitrogen 14 mg/dL (8-23); Calcium 7.6 mg/dL (8.6-10.3); Carbon Dioxide 25 mEq/L (23-29); Chloride 90 mEq/L (98-107); Ethanol < 10 mg/dL (Less than 10); Glucose 73 mg/dL (70-105); Osmolality,Calculated 259 (280-300); Potassium 3.6 mEq/L (3.5-5.1); Sodium 125 mEq/L (136-145); eGFR For African Americans > 60 (> 60); eGFR For Non-African Americans > 60 (> 60)
[2019-08-10] MEDS: *HR* Heparin 5,000 UNIT/ML VIAL SQ SCH (18:57)
[2019-08-10] MEDS ORDERED: 0.9 % Sodium Chloride 1,000 ML IVC SCH (20:00)
[2019-08-10 20:09] LABS: Creatinine,Urine 63 mg/dL; Sodium, Urine 30.6 mEq/L
[2019-08-10 20:16] LABS: Amphetamine Screen,Urine Negative ng/mL (Cutoff=1000); Barbiturate Screen,Urine Negative ng/mL (Cutoff=200); Benzodiazepines Screen,Urine Negative ng/mL (Cutoff=200); Cannabinoid Screen,Urine Negative ng/mL (Cutoff = 50); Cocaine Screen,Urine Negative ng/mL (Cutoff= 300); Opiate Screen,Urine Positive ng/mL (Cutoff=300); Phencyclidine Screen,Urine Negative ng/mL (Cutoff=25)
[2019-08-10] MEDS: Lactulose Oral Soln 20 GM/30 ML UDC PO SCH (21:00)
[2019-08-11 01:44] LABS: BUN/Creatinine Ratio 25 (6-26); Blood Urea Nitrogen 9 mg/dL (8-23); Calcium 8.2 mg/dL (8.6-10.3); Carbon Dioxide 27 mEq/L (23-29); Chloride 93 mEq/L (98-107); Glucose 115 mg/dL (70-105); Osmolality,Calculated 268 (280-300); Potassium 3.5 mEq/L (3.5-5.1); Sodium 129 mEq/L (136-145); eGFR For African Americans > 60 (> 60); eGFR For Non-African Americans > 60 (> 60)
[2019-08-11] MEDS ORDERED: Acetaminophen 325 MG TABLET PO ONE (02:03)
[2019-08-11] MEDS ORDERED: *HR* Metoprolol 5 MG/5 ML VIAL IVP ONE (02:04)
[2019-08-11 05:02] LABS: Basophils % 0.1 %; Eosinophils # 0.1 K/mcL (0.0-0.6); Eosinophils % 0.6 %; Hematocrit 26.8 % (35.3-44.9); Immature Granulocytes % 0.9 % (0-4); Lymphocytes # 0.5 K/mcL (0.6-4.6); Lymphocytes % 4.3 %; Mean Corpuscular HGB Conc 33.6 g/dL (31.6-35.5); Mean Corpuscular Hemoglobin 33.2 pg (28.0-33.3); Mean Corpuscular Volume 98.9 fL (83.0-100.0); Mean Platelet Volume 9.3 fL (9.4-12.4); Monocytes # 0.6 K/mcL (0.0-1.3); Monocytes % 5.4 %; Neutrophils # 9.7 K/mcL (1.6-8.9); Platelet Count 257 K/mcL (140-400); Red Blood Count 2.71 M/mcL (3.82-4.97); Segmented Neutrophils % 88.7 %; White Blood Count 10.9 K/mcL (4.3-11.1)
[2019-08-11 05:21] LABS: BUN/Creatinine Ratio 22 (6-26); Blood Urea Nitrogen 7 mg/dL (8-23); Calcium 7.9 mg/dL (8.6-10.3); Carbon Dioxide 30 mEq/L (23-29); Chloride 94 mEq/L (98-107); Glucose 108 mg/dL (70-105); Osmolality,Calculated 269 (280-300); Potassium 3.5 mEq/L (3.5-5.1); Sodium 130 mEq/L (136-145); eGFR For African Americans > 60 (> 60); eGFR For Non-African Americans > 60 (> 60)
[2019-08-11] MEDS: *HR* Heparin 5,000 UNIT/ML VIAL SQ SCH ×2 (05:38→18:27)
[2019-08-11] MEDS ORDERED: D5% in 0.45% NACL 1,000 ML IVC SCH (07:15)
[2019-08-11] MEDS ORDERED: clonazePAM 1 MG TABLET PO SCH (07:30)
[2019-08-11] MEDS ORDERED: clonazePAM 1 MG TABLET PO PRN (07:46)
[2019-08-11] MEDS: Piperacillin/Tazobactam 3.375 GM in 0.9 % Sodium Chloride Mini Bag 100 ML IVPB SCH ×3 (08:24→23:54)
[2019-08-11] MEDS: Lactulose Oral Soln 20 GM/30 ML UDC PO SCH ×2 (08:34→21:41)
[2019-08-11] MEDS: Cholecalciferol (D-3) 1,000 UNIT (25MCG) TABLET PO SCH (08:34)
[2019-08-11] MEDS ORDERED: *HR* HYDROcodone/Acet 5/325 mg TABLET PO PRN (09:54)
[2019-08-11] MEDS ORDERED: *HR* HYDROcodone/Acet 5/325 mg TABLET PO SCH (10:00)
[2019-08-11] MEDS: Ondansetron 4 MG/2 ML VIAL IVP PRN (10:26)
[2019-08-11 10:27] LABS: Adenovirus Not Detected (Not Detect); Bordetella Pertussis Not Detected (Not Detect); Chlamydophila pneumoniae Not Detected (Not Detect); Coronavirus 229E Not Detected (Not Detect); Coronavirus HKU1 Not Detected (Not Detect); Coronavirus NL63 Not Detected (Not Detect); Coronavirus OC43 Not Detected (Not Detect); Human Metapneumovirus Not Detected (Not Detect); Human Rhinovirus/Enterovirus Not Detected (Not Detect); Influenza A Subtype 2009 H1 Not Detected (Not Detect); Influenza A Untypeable Not Detected (Not Detect); Influenza B Not Detected (Not Detect); Mycoplasma pneumoniae Not Detected (Not Detect); Parainfluenza Virus 1 DETECTED (Not Detect); Parainfluenza Virus 2 Not Detected (Not Detect); Parainfluenza Virus 3 Not Detected (Not Detect); Parainfluenza Virus 4 Not Detected (Not Detect); Respiratory Syncytial Virus Not Detected (Not Detect)
[2019-08-11] MEDS: Levalbuterol Neb 0.63 MG/3 ML IH SCH ×3 (10:48→22:21)
[2019-08-11 12:36] LABS: BUN/Creatinine Ratio 16 (6-26); Blood Urea Nitrogen 5 mg/dL (8-23); Calcium 8.1 mg/dL (8.6-10.3); Carbon Dioxide 30 mEq/L (23-29); Chloride 93 mEq/L (98-107); Glucose 180 mg/dL (70-105); Osmolality,Calculated 276 (280-300); Potassium 3.5 mEq/L (3.5-5.1); Sodium 132 mEq/L (136-145); eGFR For African Americans > 60 (> 60); eGFR For Non-African Americans > 60 (> 60)
[2019-08-11] MEDS ORDERED: D5% in Water 1,000 ML IVC SCH (13:15)
[2019-08-11 17:55] LABS: ABG Base Excess 6 mEq/L (-2 to 3); ABG HCO3 35 mEq/L (21-27); ABG Oxygen Saturation 94 % (95-98); ABG PCO2 81 mmHg (35-45); ABG PH 7.24 pH Units (7.32-7.45); ABG PO2 88 mmHg (85-104); ABG TCO2 37 mEq/L (20-26)
[2019-08-11] MEDS: MethylPREDNISolone 40 MG/ML VIAL IVP SCH (18:27)
[2019-08-11] MEDS: Azithromycin 500 MG in 0.9 % Sodium Chloride 250 ML IVPB SCH (18:27)
[2019-08-11 18:40] LABS: BUN/Creatinine Ratio 13 (6-26); Blood Urea Nitrogen 4 mg/dL (8-23); Calcium 7.7 mg/dL (8.6-10.3); Carbon Dioxide 27 mEq/L (23-29); Chloride 93 mEq/L (98-107); Glucose 204 mg/dL (70-105); Osmolality,Calculated 265 (280-300); Potassium 3.5 mEq/L (3.5-5.1); Sodium 126 mEq/L (136-145); eGFR For African Americans > 60 (> 60); eGFR For Non-African Americans > 60 (> 60)
[2019-08-11] MEDS: 0.9 % Sodium Chloride 1,000 ML IVC SCH (19:45)
[2019-08-11 21:17] LABS: ABG Base Excess 4 mEq/L (-2 to 3); ABG HCO3 32 mEq/L (21-27); ABG Oxygen Saturation 94 % (95-98); ABG PCO2 67 mmHg (35-45); ABG PH 7.29 pH Units (7.32-7.45); ABG PO2 80 mmHg (85-104); ABG TCO2 34 mEq/L (20-26); Blood Gas Modality NIV; Blood Gas VT 450 cc
[2019-08-11] MEDS: Mirtazapine 15 MG TABLET PO SCH (21:41)
[2019-08-12] MEDS: Levalbuterol Neb 0.63 MG/3 ML IH SCH (03:51)
[2019-08-12] MEDS: *HR* Heparin 5,000 UNIT/ML VIAL SQ SCH ×2 (05:43→17:35)
[2019-08-12] MEDS: MethylPREDNISolone 40 MG/ML VIAL IVP SCH ×2 (05:43→17:36)
[2019-08-12 06:21] LABS: Hematocrit 30.4 % (35.3-44.9); Hemoglobin 10.1 g/dL (11.5-15.4); Mean Corpuscular HGB Conc 33.2 g/dL (31.6-35.5); Mean Corpuscular Hemoglobin 33.7 pg (28.0-33.3); Mean Corpuscular Volume 101.3 fL (83.0-100.0); Mean Platelet Volume 9.4 fL (9.4-12.4); Platelet Count 234 K/mcL (140-400); Red Cell Distribution Width 16.4 % (11.5-14.5); White Blood Count 12.2 K/mcL (4.3-11.1)
[2019-08-12 08:15] LABS: ABG Base Excess 6 mEq/L (-2 to 3); ABG HCO3 34 mEq/L (21-27); ABG Oxygen Saturation 97 % (95-98); ABG PCO2 71 mmHg (35-45); ABG PH 7.29 pH Units (7.32-7.45); ABG PO2 109 mmHg (85-104); ABG TCO2 36 mEq/L (20-26); Blood Gas Modality BiLevel; Blood Gas VT 450 cc
[2019-08-12] MEDS: Piperacillin/Tazobactam 3.375 GM in 0.9 % Sodium Chloride Mini Bag 100 ML IVPB SCH ×2 (08:49→15:12)
[2019-08-12] MEDS: 0.9 % Sodium Chloride 1,000 ML IVC SCH (08:53)
[2019-08-12] MEDS: Lactulose Oral Soln 20 GM/30 ML UDC PO SCH ×2 (09:04→20:59)
[2019-08-12] MEDS: Cholecalciferol (D-3) 1,000 UNIT (25MCG) TABLET PO SCH (09:04)
[2019-08-12 09:22] LABS: BUN/Creatinine Ratio 13 (6-26); Blood Urea Nitrogen 3 mg/dL (8-23); Calcium 8.2 mg/dL (8.6-10.3); Carbon Dioxide 29 mEq/L (23-29); Chloride 97 mEq/L (98-107); Glucose 127 mg/dL (70-105); Osmolality,Calculated 274 (280-300); Potassium 4.1 mEq/L (3.5-5.1); Sodium 133 mEq/L (136-145); eGFR For African Americans > 60 (> 60); eGFR For Non-African Americans > 60 (> 60)
[2019-08-12] MEDS: Ipratropium/Albuterol Neb 3 ML IH SCH ×3 (10:27→21:16)
[2019-08-12 13:19] LABS: ABG Base Excess 3 mEq/L (-2 to 3); ABG HCO3 31 mEq/L (21-27); ABG Oxygen Saturation 99 % (95-98); ABG PCO2 72 mmHg (35-45); ABG PH 7.25 pH Units (7.32-7.45); ABG PO2 142 mmHg (85-104); ABG TCO2 33 mEq/L (20-26); Blood Gas FiO2 4.5 (1-15=lpm or21-100=%)
[2019-08-12] MEDS ORDERED: Haloperidol Lactate 5 MG/ML VIAL IVP ONE (14:31)
[2019-08-12] MEDS: Azithromycin 500 MG in 0.9 % Sodium Chloride 250 ML IVPB SCH (17:36)
[2019-08-12] MEDS ORDERED: *HR* LORazepam 2 MG/ML VIAL IVP ONE (19:54)
[2019-08-12] MEDS: Ondansetron 4 MG/2 ML VIAL IVP PRN (20:52)
[2019-08-12] MEDS: Mirtazapine 15 MG TABLET PO SCH (20:58)
[2019-08-12] MEDS: *HR* Promethazine 25 MG/ML VIAL IVP PRN (22:27)
[2019-08-13] MEDS: 0.9 % Sodium Chloride 1,000 ML IVC SCH ×2 (00:46→12:50)
[2019-08-13] MEDS: Piperacillin/Tazobactam 3.375 GM in 0.9 % Sodium Chloride Mini Bag 100 ML IVPB SCH ×4 (00:47→23:08)
[2019-08-13 03:09] LABS: ABG Base Excess 8 mEq/L (-2 to 3); ABG HCO3 34 mEq/L (21-27); ABG Oxygen Saturation 94 % (95-98); ABG PCO2 61 mmHg (35-45); ABG PH 7.36 pH Units (7.32-7.45); ABG PO2 76 mmHg (85-104); ABG TCO2 36 mEq/L (20-26); Blood Gas VT 500 cc
[2019-08-13] MEDS: Ipratropium/Albuterol Neb 3 ML IH SCH ×4 (03:10→22:51)
[2019-08-13 05:53] LABS: Hematocrit 25.1 % (35.3-44.9); Immature Granulocytes % 0.7 % (0-4); Lymphocytes # 0.4 K/mcL (0.6-4.6); Lymphocytes % 7.1 %; Mean Corpuscular HGB Conc 32.7 g/dL (31.6-35.5); Mean Corpuscular Hemoglobin 33.9 pg (28.0-33.3); Mean Corpuscular Volume 103.7 fL (83.0-100.0); Mean Platelet Volume 9.6 fL (9.4-12.4); Monocytes # 0.5 K/mcL (0.0-1.3); Monocytes % 8.7 %; Neutrophils # 5.1 K/mcL (1.6-8.9); Platelet Count 197 K/mcL (140-400); Red Blood Count 2.42 M/mcL (3.82-4.97); Red Cell Distribution Width 16.2 % (11.5-14.5); Segmented Neutrophils % 83.5 %
[2019-08-13 06:02] LABS: Hemoglobin 8.2 g/dL (11.5-15.4); White Blood Count 6.1 K/mcL (4.3-11.1)
[2019-08-13 06:19] LABS: Platelet Estimate Normal (Normal)
[2019-08-13] MEDS: *HR* Heparin 5,000 UNIT/ML VIAL SQ SCH ×2 (06:19→17:41)
[2019-08-13] MEDS: MethylPREDNISolone 40 MG/ML VIAL IVP SCH ×2 (06:19→17:41)
[2019-08-13 06:24] LABS: BUN/Creatinine Ratio 15 (6-26); Blood Urea Nitrogen 4 mg/dL (8-23); Calcium 7.9 mg/dL (8.6-10.3); Carbon Dioxide 26 mEq/L (23-29); Chloride 101 mEq/L (98-107); Glucose 120 mg/dL (70-105); Osmolality,Calculated 286 (280-300); Potassium 3.5 mEq/L (3.5-5.1); Sodium 139 mEq/L (136-145); eGFR For African Americans > 60 (> 60); eGFR For Non-African Americans > 60 (> 60)
[2019-08-13] MEDS: Lactulose Oral Soln 20 GM/30 ML UDC PO SCH ×2 (08:47→21:43)
[2019-08-13] MEDS: Cholecalciferol (D-3) 1,000 UNIT (25MCG) TABLET PO SCH (08:47)
[2019-08-13] MEDS: *HR* Promethazine 25 MG/ML VIAL IVP PRN ×2 (10:56→17:42)
[2019-08-13] MEDS: Azithromycin 500 MG in 0.9 % Sodium Chloride 250 ML IVPB SCH (17:42)
[2019-08-13] MEDS: Mirtazapine 15 MG TABLET PO SCH (21:43)
[2019-08-14] MEDS: 0.9 % Sodium Chloride 1,000 ML IVC SCH (02:35)
[2019-08-14] MEDS: Ipratropium/Albuterol Neb 3 ML IH SCH ×4 (04:15→21:42)
[2019-08-14 05:28] LABS: Hematocrit 28.5 % (35.3-44.9); Hemoglobin 9.4 g/dL (11.5-15.4); Mean Platelet Volume 9.1 fL (9.4-12.4); Platelet Count 201 K/mcL (140-400); Red Blood Count 2.85 M/mcL (3.82-4.97); Red Cell Distribution Width 16.1 % (11.5-14.5); White Blood Count 6.5 K/mcL (4.3-11.1)
[2019-08-14 05:32] LABS: VBG HCO3 35 mEq/L (21-27); VBG PCO2 49 mmHg (41-51); VBG PH 7.46 pH Units (7.32-7.42); VBG PO2 67 mmHg (25-50)
[2019-08-14] MEDS: *HR* Heparin 5,000 UNIT/ML VIAL SQ SCH ×2 (05:46→17:42)
[2019-08-14] MEDS: MethylPREDNISolone 40 MG/ML VIAL IVP SCH ×2 (05:46→17:48)
[2019-08-14 06:06] LABS: BUN/Creatinine Ratio 8 (6-26); Blood Urea Nitrogen 2 mg/dL (8-23); Calcium 8.2 mg/dL (8.6-10.3); Carbon Dioxide 35 mEq/L (23-29); Chloride 94 mEq/L (98-107); Glucose 86 mg/dL (70-105); Osmolality,Calculated 287 (280-300); Potassium 2.9 mEq/L (3.5-5.1); Sodium 141 mEq/L (136-145); eGFR For African Americans > 60 (> 60); eGFR For Non-African Americans > 60 (> 60)
[2019-08-14 06:22] LABS: Folate 17.6 ng/mL (3.0-16.0)
[2019-08-14 09:16] LABS: Adenovirus F 40/41 PCR Not detected (Not detect); Astrovirus PCR Not detected (Not detect); Campylobacter by PCR Not detected (Not detect); Cryptosporidium by PCR Not detected (Not detect); Cyclospora cayetanensis PCR Not detected (Not detect); E. coli O157 by PCR Not detected (Not detect); Entamoeba histolytica PCR Not detected (Not detect); Enteroaggregative E.coli(EAEC) Not detected (Not detect); Enteropathogenic E.coli(EPEC) Not detected (Not detect); Enterotoxigenic E.coli (ETEC) Not detected (Not detect); Giardia lamblia PCR Not detected (Not detect); Norovirus GI/GII PCR Not detected (Not detect); Plesiomonas shigelloides PCR Not detected (Not detect); Rotavirus A PCR Not detected (Not detect); Salmonella PCR Not detected (Not detect); Sapovirus PCR Not detected (Not detect); Shig/EnteroinvasiveE coli EIEC Not detected (Not detect); Shigalike tox-prod E coli STEC Not detected (Not detect); Vibrio PCR Not detected (Not detect); Vibrio cholerae PCR Not detected (Not detect); Yersinia enterocolitica PCR Not detected (Not detect)
[2019-08-14 09:17] LABS: C.difficile Toxin A/B Gene PCR DETECTED (Not detect)
[2019-08-14] MEDS: *HR* HYDROcodone/Acet 5/325 mg TABLET PO PRN ×2 (12:08→20:37)
[2019-08-14] MEDS: Cholecalciferol (D-3) 1,000 UNIT (25MCG) TABLET PO SCH (12:09)
[2019-08-14] MEDS: *HR* Promethazine 25 MG/ML VIAL IVP PRN (12:09)
[2019-08-14] MEDS: Potassium Chloride Elixir 20 MEQ/15 ML UDC PO SCH ×2 (12:09→20:39)
[2019-08-14] MEDS: Lactulose Oral Soln 20 GM/30 ML UDC PO SCH (12:09)
[2019-08-14] MEDS: Piperacillin/Tazobactam 3.375 GM in 0.9 % Sodium Chloride Mini Bag 100 ML IVPB SCH ×3 (12:10→23:24)
[2019-08-14] MEDS: Azithromycin 500 MG in 0.9 % Sodium Chloride 250 ML IVPB SCH (17:49)
[2019-08-14] MEDS: Mirtazapine 15 MG TABLET PO SCH (20:35)
[2019-08-15] MEDS: Ipratropium/Albuterol Neb 3 ML IH SCH ×4 (03:16→22:09)
[2019-08-15] MEDS: MethylPREDNISolone 40 MG/ML VIAL IVP SCH ×2 (04:59→17:19)
[2019-08-15] MEDS: *HR* Heparin 5,000 UNIT/ML VIAL SQ SCH ×2 (04:59→17:26)
[2019-08-15] MEDS: *HR* HYDROcodone/Acet 5/325 mg TABLET PO PRN ×3 (05:02→20:57)
[2019-08-15] MEDS: Piperacillin/Tazobactam 3.375 GM in 0.9 % Sodium Chloride Mini Bag 100 ML IVPB SCH ×2 (08:12→17:19)
[2019-08-15] MEDS: Cholecalciferol (D-3) 1,000 UNIT (25MCG) TABLET PO SCH (08:12)
[2019-08-15] MEDS ORDERED: Azithromycin 250 MG TABLET PO SCH (09:00)
[2019-08-15 10:54] LABS: VBG HCO3 33 mEq/L (21-27); VBG PCO2 38 mmHg (41-51); VBG PH 7.54 pH Units (7.32-7.42); VBG PO2 197 mmHg (25-50)
[2019-08-15 11:28] LABS: BUN/Creatinine Ratio 14 (6-26); Blood Urea Nitrogen 5 mg/dL (8-23); Calcium 8.6 mg/dL (8.6-10.3); Carbon Dioxide 34 mEq/L (23-29); Chloride 89 mEq/L (98-107); Glucose 118 mg/dL (70-105); Magnesium 0.9 mg/dL (1.6-2.6); Osmolality,Calculated 274 (280-300); Potassium 4.3 mEq/L (3.5-5.1); Sodium 133 mEq/L (136-145); eGFR For African Americans > 60 (> 60); eGFR For Non-African Americans > 60 (> 60)
[2019-08-15] MEDS: Potassium Chloride Elixir 20 MEQ/15 ML UDC PO SCH (12:23)
[2019-08-15] MEDS ORDERED: *HR* LORazepam 2 MG/ML VIAL IVP ONE (20:40)
[2019-08-15] MEDS: traZODone 50 MG TABLET PO PRN (20:57)
[2019-08-15] MEDS: Budesonide/Formoterol 160/4.5 1 PUFF INH IH SCH (22:07)
[2019-08-16] MEDS: Ipratropium/Albuterol Neb 3 ML IH SCH ×4 (03:13→22:27)
[2019-08-16] MEDS: MethylPREDNISolone 40 MG/ML VIAL IVP SCH ×2 (04:51→17:58)
[2019-08-16] MEDS: *HR* Heparin 5,000 UNIT/ML VIAL SQ SCH ×2 (04:51→17:58)
[2019-08-16 05:17] LABS: Hematocrit 29.5 % (35.3-44.9); Hemoglobin 9.6 g/dL (11.5-15.4); Mean Corpuscular HGB Conc 32.5 g/dL (31.6-35.5); Mean Corpuscular Hemoglobin 33.4 pg (28.0-33.3); Mean Corpuscular Volume 102.8 fL (83.0-100.0); Mean Platelet Volume 11.2 fL (9.4-12.4); Platelet Count 164 K/mcL (140-400); Red Blood Count 2.87 M/mcL (3.82-4.97); Red Cell Distribution Width 15.9 % (11.5-14.5)
[2019-08-16 05:19] LABS: White Blood Count 9.8 K/mcL (4.3-11.1)
[2019-08-16 05:39] LABS: BUN/Creatinine Ratio 21 (6-26); Blood Urea Nitrogen 7 mg/dL (8-23); Carbon Dioxide 31 mEq/L (23-29); Chloride 88 mEq/L (98-107); Glucose 91 mg/dL (70-105); Osmolality,Calculated 270 (280-300); Potassium 4.1 mEq/L (3.5-5.1); Sodium 131 mEq/L (136-145); eGFR For African Americans > 60 (> 60); eGFR For Non-African Americans > 60 (> 60)
[2019-08-16] MEDS: Cholecalciferol (D-3) 1,000 UNIT (25MCG) TABLET PO SCH (08:48)
[2019-08-16] MEDS: *HR* HYDROcodone/Acet 5/325 mg TABLET PO PRN ×2 (08:53→17:02)
[2019-08-16] MEDS: Budesonide/Formoterol 160/4.5 1 PUFF INH IH SCH ×2 (10:56→22:27)
[2019-08-16] MEDS: traZODone 50 MG TABLET PO PRN (21:36)
[2019-08-17] MEDS: Ipratropium/Albuterol Neb 3 ML IH SCH ×4 (03:49→22:42)
[2019-08-17] MEDS: *HR* Heparin 5,000 UNIT/ML VIAL SQ SCH ×2 (05:55→17:59)
[2019-08-17] MEDS: MethylPREDNISolone 40 MG/ML VIAL IVP SCH ×2 (05:55→16:18)
[2019-08-17] MEDS: *HR* Promethazine 25 MG/ML VIAL IVP PRN (05:59)
[2019-08-17] MEDS: *HR* HYDROcodone/Acet 5/325 mg TABLET PO PRN ×3 (05:59→21:44)
[2019-08-17] MEDS: Cholecalciferol (D-3) 1,000 UNIT (25MCG) TABLET PO SCH (08:17)
[2019-08-17] MEDS: Budesonide/Formoterol 160/4.5 1 PUFF INH IH SCH ×2 (10:45→22:42)
[2019-08-17] MEDS: traZODone 50 MG TABLET PO PRN (21:44)
[2019-08-17] MEDS: tiZANidine 4 MG TABLET PO PRN (21:44)
[2019-08-18] MEDS: MethylPREDNISolone 40 MG/ML VIAL IVP SCH ×3 (01:04→17:13)
[2019-08-18] MEDS: *HR* Promethazine 25 MG/ML VIAL IVP PRN ×5 (01:35→22:21)
[2019-08-18] MEDS: Ipratropium/Albuterol Neb 3 ML IH SCH ×4 (03:17→21:47)
[2019-08-18] MEDS: *HR* HYDROcodone/Acet 5/325 mg TABLET PO PRN ×3 (06:37→22:20)
[2019-08-18] MEDS: *HR* Heparin 5,000 UNIT/ML VIAL SQ SCH ×2 (06:37→17:12)
[2019-08-18] MEDS: tiZANidine 4 MG TABLET PO PRN ×2 (06:38→22:20)
[2019-08-18] MEDS: Cholecalciferol (D-3) 1,000 UNIT (25MCG) TABLET PO SCH (08:04)
[2019-08-18] MEDS: Budesonide/Formoterol 160/4.5 1 PUFF INH IH SCH ×2 (11:04→21:48)
[2019-08-18 13:55] LABS: Hematocrit 28.8 % (35.3-44.9); Hemoglobin 9.5 g/dL (11.5-15.4); Mean Corpuscular Hemoglobin 33.8 pg (28.0-33.3); Mean Corpuscular Volume 102.5 fL (83.0-100.0); Mean Platelet Volume 11.1 fL (9.4-12.4); Monocytes # 0.8 K/mcL (0.0-1.3); Platelet Count 195 K/mcL (140-400); Red Blood Count 2.81 M/mcL (3.82-4.97); Red Cell Distribution Width 16.5 % (11.5-14.5); White Blood Count 13.1 K/mcL (4.3-11.1)
[2019-08-18 14:41] LABS: Lymphocytes # 1.1 K/mcL (0.6-4.6); Neutrophils # 11.3 K/mcL (1.6-8.9); Platelet Estimate Normal (Normal)
[2019-08-18] MEDS ORDERED: Chloraseptic Spray 177 ML BOTTLE MM PRN (14:44)
[2019-08-18 14:47] LABS: BUN/Creatinine Ratio 38 (6-26); Blood Urea Nitrogen 16 mg/dL (8-23); Calcium 8.9 mg/dL (8.6-10.3); Carbon Dioxide 24 mEq/L (23-29); Chloride 86 mEq/L (98-107); Glucose 147 mg/dL (70-105); Osmolality,Calculated 266 (280-300); Potassium 4.2 mEq/L (3.5-5.1); Sodium 126 mEq/L (136-145); eGFR For African Americans > 60 (> 60); eGFR For Non-African Americans > 60 (> 60)
[2019-08-18] MEDS: traZODone 50 MG TABLET PO PRN (22:21)
[2019-08-19] MEDS: MethylPREDNISolone 40 MG/ML VIAL IVP SCH ×3 (00:18→08:11)
[2019-08-19] MEDS: Ipratropium/Albuterol Neb 3 ML IH SCH ×4 (03:26→21:05)
[2019-08-19] MEDS: *HR* HYDROcodone/Acet 5/325 mg TABLET PO PRN ×3 (06:23→23:17)
[2019-08-19] MEDS: tiZANidine 4 MG TABLET PO PRN ×2 (06:23→21:01)
[2019-08-19] MEDS: *HR* Heparin 5,000 UNIT/ML VIAL SQ SCH ×2 (06:23→17:10)
[2019-08-19 06:55] LABS: Hematocrit 26.9 % (35.3-44.9); Hemoglobin 9.4 g/dL (11.5-15.4); Mean Corpuscular HGB Conc 34.9 g/dL (31.6-35.5); Mean Corpuscular Hemoglobin 33.5 pg (28.0-33.3); Mean Corpuscular Volume 95.7 fL (83.0-100.0); Mean Platelet Volume 10.8 fL (9.4-12.4); Platelet Count 127 K/mcL (140-400); Red Blood Count 2.81 M/mcL (3.82-4.97); Red Cell Distribution Width 15.9 % (11.5-14.5)
[2019-08-19 07:15] LABS: BUN/Creatinine Ratio 48 (6-26); Blood Urea Nitrogen 14 mg/dL (8-23); Calcium 8.8 mg/dL (8.6-10.3); Carbon Dioxide 30 mEq/L (23-29); Chloride 83 mEq/L (98-107); Glucose 89 mg/dL (70-105); Osmolality,Calculated 260 (280-300); Potassium 4.1 mEq/L (3.5-5.1); Sodium 125 mEq/L (136-145); eGFR For African Americans > 60 (> 60); eGFR For Non-African Americans > 60 (> 60)
[2019-08-19 07:22] LABS: Lymphocytes # 1.2 K/mcL (0.6-4.6); Monocytes # 1.8 K/mcL (0.0-1.3)
[2019-08-19 07:24] LABS: Anisocytosis 1+ (Not Present); Platelet Estimate Slight Decrease (Normal)
[2019-08-19] MEDS: Cholecalciferol (D-3) 1,000 UNIT (25MCG) TABLET PO SCH (08:04)
[2019-08-19] MEDS ORDERED: Ondansetron ODT 4 MG TAB.RAPDIS SL PRN (10:50)
[2019-08-19] MEDS: Budesonide/Formoterol 160/4.5 1 PUFF INH IH SCH ×2 (11:01→21:05)
[2019-08-19] MEDS: predniSONE 20 MG TABLET PO SCH (14:04)
[2019-08-19] MEDS: dimenhyDRINATE 50 MG TABLET PO PRN (15:38)
[2019-08-19] MEDS: traZODone 50 MG TABLET PO PRN (21:01)
[2019-08-19] MEDS: Ipratropium/Albuterol Neb 3 ML IH PRN (21:14)
[2019-08-20] MEDS: Ipratropium/Albuterol Neb 3 ML IH SCH ×4 (04:30→21:35)
[2019-08-20] MEDS: *HR* Heparin 5,000 UNIT/ML VIAL SQ SCH ×2 (05:53→16:19)
[2019-08-20] MEDS: Nystatin SUSP 5 ML UD.LIQ PO SCH ×5 (05:53→21:22)
[2019-08-20 06:32] LABS: Basophils # 0.1 K/mcL (0.0-0.2); Basophils % 0.4 %; Hematocrit 28.2 % (35.3-44.9); Hemoglobin 9.7 g/dL (11.5-15.4); Immature Granulocytes % 5.6 % (0-4); Lymphocytes # 1.6 K/mcL (0.6-4.6); Lymphocytes % 8.9 %; Mean Corpuscular HGB Conc 34.4 g/dL (31.6-35.5); Mean Corpuscular Volume 98.9 fL (83.0-100.0); Monocytes # 1.5 K/mcL (0.0-1.3); Monocytes % 8.2 %; Neutrophils # 13.9 K/mcL (1.6-8.9); Red Blood Count 2.85 M/mcL (3.82-4.97); Red Cell Distribution Width 15.8 % (11.5-14.5); Segmented Neutrophils % 76.9 %; White Blood Count 18.1 K/mcL (4.3-11.1)
[2019-08-20 06:59] LABS: BUN/Creatinine Ratio 36 (6-26); Blood Urea Nitrogen 10 mg/dL (8-23); Calcium 8.8 mg/dL (8.6-10.3); Carbon Dioxide 31 mEq/L (23-29); Chloride 84 mEq/L (98-107); Glucose 90 mg/dL (70-105); Osmolality,Calculated 263 (280-300); Potassium 3.4 mEq/L (3.5-5.1); Sodium 127 mEq/L (136-145); eGFR For African Americans > 60 (> 60); eGFR For Non-African Americans > 60 (> 60)
[2019-08-20] MEDS: *HR* HYDROcodone/Acet 5/325 mg TABLET PO PRN ×2 (09:27→17:33)
[2019-08-20] MEDS: tiZANidine 4 MG TABLET PO PRN ×2 (09:27→17:33)
[2019-08-20] MEDS: predniSONE 20 MG TABLET PO SCH (09:28)
[2019-08-20] MEDS: dimenhyDRINATE 50 MG TABLET PO PRN (09:28)
[2019-08-20] MEDS: Cholecalciferol (D-3) 1,000 UNIT (25MCG) TABLET PO SCH (09:28)
[2019-08-20] MEDS: Budesonide/Formoterol 160/4.5 1 PUFF INH IH SCH ×2 (10:34→21:35)
[2019-08-20] MEDS ORDERED: hydrOXYzine pamoate 25 MG CAPSULE PO PRN (10:51)
[2019-08-20] MEDS ORDERED: dimenhyDRINATE 50 MG TABLET PO PRN (15:51)
[2019-08-20] MEDS: traZODone 50 MG TABLET PO PRN (21:21)
[2019-08-20] MEDS: hydrOXYzine pamoate 25 MG CAPSULE PO PRN (21:22)
[2019-08-21] MEDS: tiZANidine 4 MG TABLET PO PRN ×2 (01:46→22:15)
[2019-08-21] MEDS: *HR* HYDROcodone/Acet 5/325 mg TABLET PO PRN ×3 (01:46→17:29)
[2019-08-21] MEDS: Ipratropium/Albuterol Neb 3 ML IH PRN (01:53)
[2019-08-21] MEDS: Ipratropium/Albuterol Neb 3 ML IH SCH ×4 (04:54→22:37)
[2019-08-21 06:11] LABS: Basophils % 0.3 %; Eosinophils % 0.1 %; Hematocrit 26.4 % (35.3-44.9); Hemoglobin 9.1 g/dL (11.5-15.4); Immature Granulocytes % 3.4 % (0-4); Lymphocytes # 1.4 K/mcL (0.6-4.6); Lymphocytes % 8.9 %; Mean Corpuscular HGB Conc 34.5 g/dL (31.6-35.5); Mean Corpuscular Hemoglobin 33.8 pg (28.0-33.3); Mean Corpuscular Volume 98.1 fL (83.0-100.0); Mean Platelet Volume 10.7 fL (9.4-12.4); Monocytes # 1.2 K/mcL (0.0-1.3); Monocytes % 7.3 %; Neutrophils # 12.7 K/mcL (1.6-8.9); Platelet Count 213 K/mcL (140-400); Red Blood Count 2.69 M/mcL (3.82-4.97); Red Cell Distribution Width 15.6 % (11.5-14.5); White Blood Count 15.8 K/mcL (4.3-11.1)
[2019-08-21 06:24] LABS: BUN/Creatinine Ratio 50 (6-26); Blood Urea Nitrogen 11 mg/dL (8-23); Calcium 8.4 mg/dL (8.6-10.3); Carbon Dioxide 37 mEq/L (23-29); Chloride 87 mEq/L (98-107); Glucose 87 mg/dL (70-105); Osmolality,Calculated 269 (280-300); Potassium 3.8 mEq/L (3.5-5.1); Sodium 130 mEq/L (136-145); eGFR For African Americans > 60 (> 60); eGFR For Non-African Americans > 60 (> 60)
[2019-08-21] MEDS: *HR* Heparin 5,000 UNIT/ML VIAL SQ SCH ×2 (06:52→17:28)
[2019-08-21] MEDS: Nystatin SUSP 5 ML UD.LIQ PO SCH ×4 (09:13→22:15)
[2019-08-21] MEDS: Cholecalciferol (D-3) 1,000 UNIT (25MCG) TABLET PO SCH (09:13)
[2019-08-21] MEDS: predniSONE 10 MG TABLET PO SCH (09:14)
[2019-08-21] MEDS: Budesonide/Formoterol 160/4.5 1 PUFF INH IH SCH ×2 (11:00→22:37)
[2019-08-21] MEDS: hydrOXYzine pamoate 25 MG CAPSULE PO PRN ×2 (13:24→22:14)
[2019-08-21] MEDS: traZODone 50 MG TABLET PO PRN (22:15)
[2019-08-22] MEDS: Ipratropium/Albuterol Neb 3 ML IH SCH ×2 (04:09→07:30)
[2019-08-22] MEDS: *HR* Heparin 5,000 UNIT/ML VIAL SQ SCH (06:46)
[2019-08-22] MEDS: *HR* HYDROcodone/Acet 5/325 mg TABLET PO PRN (06:46)
[2019-08-22 07:27] VITALS: BP 152/87
[2019-08-22] MEDS: Budesonide/Formoterol 160/4.5 1 PUFF INH IH SCH (07:29)
[2019-08-22] MEDS: Nystatin SUSP 5 ML UD.LIQ PO SCH (09:04)
[2019-08-22] MEDS: predniSONE 10 MG TABLET PO SCH (09:04)
[2019-08-22] MEDS: Cholecalciferol (D-3) 1,000 UNIT (25MCG) TABLET PO SCH (09:04)
[2019-08-22 10:41] LABS: Basophils % 0.2 %; Eosinophils % 0.1 %; Hematocrit 28.5 % (35.3-44.9); Hemoglobin 9.7 g/dL (11.5-15.4); Immature Granulocytes % 1.9 % (0-4); Lymphocytes # 1.6 K/mcL (0.6-4.6); Lymphocytes % 8.3 %; Mean Corpuscular Hemoglobin 33.7 pg (28.0-33.3); Mean Platelet Volume 10.8 fL (9.4-12.4); Monocytes # 1.3 K/mcL (0.0-1.3); Monocytes % 6.9 %; Neutrophils # 16.1 K/mcL (1.6-8.9); Platelet Count 236 K/mcL (140-400); Red Blood Count 2.88 M/mcL (3.82-4.97); Red Cell Distribution Width 15.3 % (11.5-14.5); Segmented Neutrophils % 82.6 %; White Blood Count 19.5 K/mcL (4.3-11.1)
[2019-08-22 10:59] LABS: BUN/Creatinine Ratio 38 (6-26); Blood Urea Nitrogen 11 mg/dL (8-23); Calcium 8.4 mg/dL (8.6-10.3); Carbon Dioxide 34 mEq/L (23-29); Chloride 87 mEq/L (98-107); Glucose 128 mg/dL (70-105); Osmolality,Calculated 267 (280-300); Potassium 3.7 mEq/L (3.5-5.1); Sodium 128 mEq/L (136-145); eGFR For African Americans > 60 (> 60); eGFR For Non-African Americans > 60 (> 60)
== END 2019-08-22 11:34 | DRG 865 ==
LOC: 2ANU 15:47 → EMEROOARM 15:47 → SUATTDRO 17:50 → 2ANU 18:39 → SUATTDRO 08-11 15:33
PROVIDERS: ADMIT Internal Medicine; ATTEND Student in an Organized Health Care Education/Training Program

== ENCOUNTER 2019-09-23 18:46 | Inpatient (IN) ==
[2019-09-23] MEDS ORDERED: Naloxone 0.4 MG/ML INJ ONE (18:55)
[2019-09-23] MEDS ORDERED: Naloxone 0.4 MG/ML INJ IM ONE (18:59)
[2019-09-23 19:28] LABS: Eosinophils % 0.2 %
[2019-09-23 19:37] LABS: INR 0.9; Prothrombin Time 10.2 Seconds (9.4-12.1)
[2019-09-23 19:40] LABS: Activated Partial Thrombo Time 23.3 Seconds (26.0-36.0)
[2019-09-23 19:49] LABS: Basophils # 0.1 K/mcL (0.0-0.2); Basophils % 0.3 %; Hematocrit 32.9 % (35.3-44.9); Hemoglobin 10.3 g/dL (11.5-15.4); Immature Granulocytes % 1.5 % (0-4); Lymphocytes # 1.2 K/mcL (0.6-4.6); Lymphocytes % 6.5 %; Mean Corpuscular HGB Conc 31.3 g/dL (31.6-35.5); Mean Corpuscular Hemoglobin 33.2 pg (28.0-33.3); Mean Corpuscular Volume 106.1 fL (83.0-100.0); Monocytes % 5.4 %; Neutrophils # 15.6 K/mcL (1.6-8.9); Red Cell Distribution Width 14.2 % (11.5-14.5); Segmented Neutrophils % 86.1 %; White Blood Count 18.1 K/mcL (4.3-11.1)
[2019-09-23 19:52] LABS: Alanine Aminotransferase 11 Units/L (7-52); Albumin 3.3 g/dL (3.5-5.7); Albumin/Globulin Ratio 1.6 (1.1-2.2); Alkaline Phosphatase 100 Units/L (34-104); Aspartate Amino Transferase 13 Units/L (13-39); BUN/Creatinine Ratio 54 (6-26); Bilirubin,Direct 0.1 mg/dL (0.0-0.2); Bilirubin,Indirect 0.1 mg/dL (0.0-1.0); Bilirubin,Total 0.2 mg/dL (0.3-1.0); Blood Urea Nitrogen 19 mg/dL (8-23); Calcium 8.5 mg/dL (8.6-10.3); Carbon Dioxide 37 mEq/L (23-29); Chloride 90 mEq/L (98-107); Creatine Kinase 21 Units/L (30-223); Globulin 2.1 g/dL (2.4-3.5); Glucose 70 mg/dL (70-105); Osmolality,Calculated 279 (280-300); Potassium 4.3 mEq/L (3.5-5.1); Sodium 134 mEq/L (136-145); Total Protein 5.4 g/dL (6.4-8.9); Troponin I < 0.03 ng/mL (< 0.04); eGFR For African Americans > 60 (> 60); eGFR For Non-African Americans > 60 (> 60)
[2019-09-23 19:56] LABS: Platelet Clumps Few (Not Present); Polychromasia 1+ (Not Present)
[2019-09-23] MEDS ORDERED: levoFLOXacin 750 MG/150 ML 750 MG/150 ML BAG IVPB ONE (20:48)
[2019-09-23] MEDS ORDERED: Piperacillin/Tazobactam 3.375 GM in 0.9 % Sodium Chloride Mini Bag 100 ML IVPB ONE ×2 (20:48→22:05)
[2019-09-23] MEDS ORDERED: 0.9 % Sodium Chloride 1,000 ML IVC ONE (21:56)
[2019-09-23 23:05] LABS: VBG HCO3 40 mEq/L (21-27); VBG PCO2 53 mmHg (41-51); VBG PH 7.49 pH Units (7.32-7.42); VBG PO2 161 mmHg (25-50)
[2019-09-24] MEDS ORDERED: Naloxone 0.4 MG/ML INJ IVP PRN (02:51)
[2019-09-24] MEDS: Furosemide 20 MG/2 ML VIAL IVP SCH (04:21)
[2019-09-24] MEDS ORDERED: *HR* LORazepam 2 MG/ML VIAL IVP PRN ×3 (05:41)
[2019-09-24] MEDS ORDERED: *HR* Heparin 5,000 UNIT/ML VIAL SQ SCH (06:00)
[2019-09-24 06:35] LABS: Mean Platelet Volume 8.8 fL (9.4-12.4)
[2019-09-24 06:37] LABS: Hematocrit 37.6 % (35.3-44.9); Hemoglobin 12.2 g/dL (11.5-15.4); Mean Corpuscular HGB Conc 32.4 g/dL (31.6-35.5); Mean Corpuscular Hemoglobin 33.4 pg (28.0-33.3); Red Blood Count 3.65 M/mcL (3.82-4.97); Red Cell Distribution Width 14.4 % (11.5-14.5); White Blood Count 20.1 K/mcL (4.3-11.1)
[2019-09-24 07:04] LABS: BUN/Creatinine Ratio 34 (6-26); Blood Urea Nitrogen 13 mg/dL (8-23); Calcium 9.2 mg/dL (8.6-10.3); Carbon Dioxide 42 mEq/L (23-29); Chloride 86 mEq/L (98-107); Glucose 87 mg/dL (70-105); Osmolality,Calculated 283 (280-300); Potassium 3.3 mEq/L (3.5-5.1); Sodium 137 mEq/L (136-145); Troponin I 0.03 ng/mL (< 0.04); eGFR For African Americans > 60 (> 60); eGFR For Non-African Americans > 60 (> 60)
[2019-09-24 08:47] LABS: ABG Base Excess 19 mEq/L (-2 to 3); ABG HCO3 46 mEq/L (21-27); ABG Oxygen Saturation 89 % (95-98); ABG PCO2 64 mmHg (35-45); ABG PH 7.47 pH Units (7.32-7.45); ABG PO2 55 mmHg (85-104); ABG TCO2 48 mEq/L (20-26)
[2019-09-24] MEDS: Ketorolac 15 MG/ML VIAL IVP PRN ×2 (10:12→20:39)
[2019-09-24] MEDS: Piperacillin/Tazobactam 3.375 GM in 0.9 % Sodium Chloride Mini Bag 100 ML IVPB SCH ×2 (10:13→17:25)
[2019-09-24] MEDS: Ipratropium/Albuterol Neb 3 ML IH PRN (11:27)
[2019-09-24] MEDS ORDERED: *HR* OxyCODONE/APAP 5/325 TABLET PO ONE (13:43)
[2019-09-24 15:49] LABS: Adenovirus Not Detected (Not Detect); Bordetella Pertussis Not Detected (Not Detect); Chlamydophila pneumoniae Not Detected (Not Detect); Coronavirus 229E Not Detected (Not Detect); Coronavirus HKU1 Not Detected (Not Detect); Coronavirus NL63 Not Detected (Not Detect); Coronavirus OC43 Not Detected (Not Detect); Human Metapneumovirus Not Detected (Not Detect); Human Rhinovirus/Enterovirus Not Detected (Not Detect); Influenza A Subtype 2009 H1 Not Detected (Not Detect); Influenza B Not Detected (Not Detect); Mycoplasma pneumoniae Not Detected (Not Detect); Parainfluenza Virus 1 Not Detected (Not Detect); Parainfluenza Virus 2 Not Detected (Not Detect); Parainfluenza Virus 3 Not Detected (Not Detect); Parainfluenza Virus 4 Not Detected (Not Detect); Respiratory Syncytial Virus Not Detected (Not Detect)
[2019-09-24] MEDS: Thiamine (B-1) 100 MG, Folic Acid 1 MG, MVI, adult with vitamin K 10 ML in 0.9 % Sodi... IVPB SCH (17:26)
[2019-09-24] MEDS: *HR* Heparin 5,000 UNIT/ML VIAL SQ SCH (17:29)
[2019-09-24] MEDS ORDERED: Chloraseptic Spray 177 ML BOTTLE MM PRN (17:43)
[2019-09-24] MEDS: Mirtazapine 15 MG TABLET PO SCH (20:35)
[2019-09-24] MEDS: Budesonide/Formoterol 160/4.5 1 PUFF INH IH SCH (22:29)
[2019-09-25] MEDS: Piperacillin/Tazobactam 3.375 GM in 0.9 % Sodium Chloride Mini Bag 100 ML IVPB SCH ×2 (00:11→10:03)
[2019-09-25] MEDS: levoFLOXacin 750 MG/150 ML 750 MG/150 ML BAG IVPB SCH ×2 (00:14→23:42)
[2019-09-25 03:47] LABS: Eosinophils % 0.9 %; Hematocrit 35.9 % (35.3-44.9); Hemoglobin 11.5 g/dL (11.5-15.4); Lymphocytes % 7.3 %; Mean Corpuscular Hemoglobin 32.5 pg (28.0-33.3); Mean Corpuscular Volume 101.4 fL (83.0-100.0); Mean Platelet Volume 10.6 fL (9.4-12.4); Monocytes % 5.5 %; Platelet Count 183 K/mcL (140-400); Red Blood Count 3.54 M/mcL (3.82-4.97); Red Cell Distribution Width 14.4 % (11.5-14.5); Segmented Neutrophils % 84.9 %; White Blood Count 12.6 K/mcL (4.3-11.1)
[2019-09-25 03:48] LABS: Basophils # 0.1 K/mcL (0.0-0.2); Basophils % 0.4 %; Eosinophils # 0.1 K/mcL (0.0-0.6); Lymphocytes # 0.9 K/mcL (0.6-4.6); Monocytes # 0.7 K/mcL (0.0-1.3); Neutrophils # 10.7 K/mcL (1.6-8.9)
[2019-09-25 04:09] LABS: BUN/Creatinine Ratio 23 (6-26); Blood Urea Nitrogen 9 mg/dL (8-23); Calcium 8.5 mg/dL (8.6-10.3); Carbon Dioxide 35 mEq/L (23-29); Chloride 90 mEq/L (98-107); Glucose 67 mg/dL (70-105); Osmolality,Calculated 271 (280-300); Potassium 3.6 mEq/L (3.5-5.1); Sodium 132 mEq/L (136-145); eGFR For African Americans > 60 (> 60); eGFR For Non-African Americans > 60 (> 60)
[2019-09-25 05:37] LABS: Bilirubin,Urine Negative (Negative); Blood,Urine Negative (Negative); Clarity,Urine Clear (Clear); Color,Urine Yellow (Yellow); Glucose,Urine (UA) Normal (Normal); Ketones,Urine Negative (Negative); Leukocyte Esterase,Urine Negative (Negative); Nitrite,Urine Negative (Negative); Protein,Urine Negative (Neg-Trace); Specific Gravity,Urine 1.011 (1.010-1.025); Urobilinogen,Urine Normal (Normal)
[2019-09-25] MEDS: *HR* Heparin 5,000 UNIT/ML VIAL SQ SCH ×2 (05:39→17:55)
[2019-09-25 05:40] LABS: Amphetamine Screen,Urine Negative ng/mL (Cutoff=1000); Barbiturate Screen,Urine Negative ng/mL (Cutoff=200); Benzodiazepines Screen,Urine Negative ng/mL (Cutoff=200); Cannabinoid Screen,Urine Negative ng/mL (Cutoff = 50); Cocaine Screen,Urine Negative ng/mL (Cutoff= 300); Opiate Screen,Urine Negative ng/mL (Cutoff=300); Phencyclidine Screen,Urine Negative ng/mL (Cutoff=25)
[2019-09-25] MEDS: Budesonide/Formoterol 160/4.5 1 PUFF INH IH SCH ×2 (07:36→20:49)
[2019-09-25] MEDS: Ipratropium/Albuterol Neb 3 ML IH PRN ×2 (07:38→20:49)
[2019-09-25] MEDS ORDERED: Aminoglycoside Consult 1 EACH MC ONE (08:34)
[2019-09-25] MEDS: predniSONE 20 MG TABLET PO SCH (10:02)
[2019-09-25] MEDS: Furosemide 20 MG/2 ML VIAL IVP SCH (10:02)
[2019-09-25] MEDS: Cholecalciferol (D-3) 1,000 UNIT (25MCG) TABLET PO SCH (10:02)
[2019-09-25] MEDS: *HR* LORazepam 0.5 MG TABLET PO PRN ×2 (13:37→20:03)
[2019-09-25] MEDS: Ketorolac 15 MG/ML VIAL IVP PRN (15:57)
[2019-09-25] MEDS: Thiamine (B-1) 100 MG, Folic Acid 1 MG, MVI, adult with vitamin K 10 ML in 0.9 % Sodi... IVPB SCH (17:55)
[2019-09-25] MEDS: Mirtazapine 15 MG TABLET PO SCH (20:02)
[2019-09-25] MEDS ORDERED: Temazepam 15 MG CAPSULE PO ONE (21:16)
[2019-09-26] MEDS: *HR* Heparin 5,000 UNIT/ML VIAL SQ SCH ×2 (06:30→16:33)
[2019-09-26 09:23] LABS: Basophils % 0.3 %; Eosinophils # 0.1 K/mcL (0.0-0.6); Eosinophils % 0.8 %; Hemoglobin 11.7 g/dL (11.5-15.4); Immature Granulocytes % 1.1 % (0-4); Lymphocytes # 1.3 K/mcL (0.6-4.6); Lymphocytes % 9.5 %; Mean Corpuscular HGB Conc 33.4 g/dL (31.6-35.5); Mean Corpuscular Hemoglobin 33.1 pg (28.0-33.3); Mean Corpuscular Volume 99.2 fL (83.0-100.0); Mean Platelet Volume 9.8 fL (9.4-12.4); Monocytes # 0.9 K/mcL (0.0-1.3); Monocytes % 6.3 %; Platelet Count 238 K/mcL (140-400); Red Blood Count 3.53 M/mcL (3.82-4.97); Red Cell Distribution Width 13.8 % (11.5-14.5); White Blood Count 13.4 K/mcL (4.3-11.1)
[2019-09-26] MEDS: Cholecalciferol (D-3) 1,000 UNIT (25MCG) TABLET PO SCH (09:29)
[2019-09-26] MEDS: Furosemide 20 MG/2 ML VIAL IVP SCH (09:29)
[2019-09-26] MEDS: predniSONE 20 MG TABLET PO SCH (09:30)
[2019-09-26 09:43] LABS: BUN/Creatinine Ratio 34 (6-26); Blood Urea Nitrogen 19 mg/dL (8-23); Calcium 8.9 mg/dL (8.6-10.3); Carbon Dioxide 34 mEq/L (23-29); Chloride 90 mEq/L (98-107); Glucose 98 mg/dL (70-105); Osmolality,Calculated 278 (280-300); Potassium 3.4 mEq/L (3.5-5.1); Sodium 133 mEq/L (136-145); eGFR For African Americans > 60 (> 60); eGFR For Non-African Americans > 60 (> 60)
[2019-09-26] MEDS: Budesonide/Formoterol 160/4.5 1 PUFF INH IH SCH ×2 (10:52→20:22)
[2019-09-26] MEDS: Ipratropium/Albuterol Neb 3 ML IH PRN ×3 (10:52→20:21)
[2019-09-26] MEDS: *HR* LORazepam 0.5 MG TABLET PO PRN ×2 (11:25→20:36)
[2019-09-26] MEDS: Ketorolac 15 MG/ML VIAL IVP PRN (13:42)
[2019-09-26] MEDS: Thiamine (B-1) 100 MG, Folic Acid 1 MG, MVI, adult with vitamin K 10 ML in 0.9 % Sodi... IVPB SCH (16:33)
[2019-09-26] MEDS ORDERED: *HR* OxyCODONE/APAP 5/325 TABLET PO ONE (18:11)
[2019-09-26] MEDS: Acetylcysteine 10% 2 ML INHSOL IH PRN (20:22)
[2019-09-26] MEDS: Mirtazapine 15 MG TABLET PO SCH (20:36)
[2019-09-26] MEDS ORDERED: clonazePAM 1 MG TABLET PO ONE (21:12)
[2019-09-26] MEDS: levoFLOXacin 750 MG/150 ML 750 MG/150 ML BAG IVPB SCH (22:54)
[2019-09-27] MEDS: Ketorolac 15 MG/ML VIAL IVP PRN (00:34)
[2019-09-27] MEDS: Acetylcysteine 10% 2 ML INHSOL IH PRN (03:50)
[2019-09-27] MEDS: Ipratropium/Albuterol Neb 3 ML IH PRN ×4 (03:51→20:20)
[2019-09-27 04:08] LABS: Basophils % 0.1 %; Eosinophils # 0.1 K/mcL (0.0-0.6); Eosinophils % 0.4 %; Hematocrit 29.8 % (35.3-44.9); Immature Granulocytes % 0.8 % (0-4); Mean Corpuscular HGB Conc 32.2 g/dL (31.6-35.5); Mean Corpuscular Hemoglobin 32.8 pg (28.0-33.3); Mean Corpuscular Volume 101.7 fL (83.0-100.0); Mean Platelet Volume 9.5 fL (9.4-12.4); Monocytes % 7.1 %; Neutrophils # 11.9 K/mcL (1.6-8.9); Platelet Count 202 K/mcL (140-400); Red Blood Count 2.93 M/mcL (3.82-4.97); Red Cell Distribution Width 13.6 % (11.5-14.5); Segmented Neutrophils % 84.6 %; White Blood Count 14.1 K/mcL (4.3-11.1)
[2019-09-27 04:14] LABS: Hemoglobin 9.6 g/dL (11.5-15.4)
[2019-09-27 04:32] LABS: BUN/Creatinine Ratio 41 (6-26); Blood Urea Nitrogen 32 mg/dL (8-23); Carbon Dioxide 33 mEq/L (23-29); Chloride 94 mEq/L (98-107); Glucose 110 mg/dL (70-105); Osmolality,Calculated 284 (280-300); Potassium 4.1 mEq/L (3.5-5.1); Sodium 133 mEq/L (136-145); eGFR For African Americans > 60 (> 60); eGFR For Non-African Americans > 60 (> 60)
[2019-09-27] MEDS: *HR* Heparin 5,000 UNIT/ML VIAL SQ SCH ×2 (06:38→16:50)
[2019-09-27] MEDS: Cholecalciferol (D-3) 1,000 UNIT (25MCG) TABLET PO SCH (09:44)
[2019-09-27] MEDS: Folic Acid 1 MG TABLET PO SCH (09:44)
[2019-09-27] MEDS: Thiamine (B-1) 100 MG TABLET PO SCH (09:44)
[2019-09-27] MEDS: predniSONE 20 MG TABLET PO SCH (09:45)
[2019-09-27] MEDS: Vitamin B Complex/Vit C/Vit E 1 EACH TABLET PO SCH (09:45)
[2019-09-27] MEDS: Budesonide/Formoterol 160/4.5 1 PUFF INH IH SCH ×2 (10:26→20:18)
[2019-09-27] MEDS ORDERED: levoFLOXacin 750 MG TABLET PO SCH (21:00)
[2019-09-27] MEDS: Mirtazapine 15 MG TABLET PO SCH (22:33)
[2019-09-27] MEDS ORDERED: Acetaminophen 325 MG TABLET PO ONE (23:03)
[2019-09-28] MEDS: Ipratropium/Albuterol Neb 3 ML IH PRN ×3 (03:39→16:26)
[2019-09-28 03:52] LABS: Basophils % 0.2 %; Eosinophils # 0.1 K/mcL (0.0-0.6); Eosinophils % 0.7 %; Hematocrit 33.6 % (35.3-44.9); Hemoglobin 10.7 g/dL (11.5-15.4); Lymphocytes # 0.9 K/mcL (0.6-4.6); Lymphocytes % 5.9 %; Mean Corpuscular HGB Conc 31.8 g/dL (31.6-35.5); Mean Corpuscular Volume 103.7 fL (83.0-100.0); Mean Platelet Volume 9.9 fL (9.4-12.4); Monocytes # 0.9 K/mcL (0.0-1.3); Monocytes % 6.2 %; Neutrophils # 12.5 K/mcL (1.6-8.9); Platelet Count 206 K/mcL (140-400); Red Blood Count 3.24 M/mcL (3.82-4.97); Red Cell Distribution Width 13.5 % (11.5-14.5); White Blood Count 14.6 K/mcL (4.3-11.1)
[2019-09-28 04:07] LABS: % Iron Saturation 15 % (15-50); Alanine Aminotransferase 10 Units/L (7-52); Albumin 3.9 g/dL (3.5-5.7); Albumin/Globulin Ratio 1.6 (1.1-2.2); Alkaline Phosphatase 93 Units/L (34-104); Aspartate Amino Transferase 14 Units/L (13-39); BUN/Creatinine Ratio 33 (6-26); Bilirubin,Direct 0.1 mg/dL (0.0-0.2); Bilirubin,Indirect 0.1 mg/dL (0.0-1.0); Bilirubin,Total 0.2 mg/dL (0.3-1.0); Blood Urea Nitrogen 15 mg/dL (8-23); Calcium 8.7 mg/dL (8.6-10.3); Carbon Dioxide 33 mEq/L (23-29); Chloride 92 mEq/L (98-107); Globulin 2.5 g/dL (2.4-3.5); Glucose 80 mg/dL (70-105); Iron 53 mcg/dL (50-170); Magnesium 1.6 mg/dL (1.6-2.6); Osmolality,Calculated 272 (280-300); Potassium 4.2 mEq/L (3.5-5.1); Sodium 131 mEq/L (136-145); Total Protein 6.4 g/dL (6.4-8.9); Transferrin 252 mg/dL (203-362); eGFR For African Americans > 60 (> 60); eGFR For Non-African Americans > 60 (> 60)
[2019-09-28 04:24] LABS: Ferritin 145 ng/mL (10-120)
[2019-09-28 04:32] LABS: Folate > 22.3 ng/mL (3.0-16.0); Vitamin B12 359 pg/mL (250-1100)
[2019-09-28] MEDS: *HR* Heparin 5,000 UNIT/ML VIAL SQ SCH (04:50)
[2019-09-28] MEDS: Vitamin B Complex/Vit C/Vit E 1 EACH TABLET PO SCH (08:22)
[2019-09-28] MEDS: predniSONE 20 MG TABLET PO SCH (08:22)
[2019-09-28] MEDS: Thiamine (B-1) 100 MG TABLET PO SCH (08:23)
[2019-09-28] MEDS: Folic Acid 1 MG TABLET PO SCH (08:23)
[2019-09-28] MEDS: Cholecalciferol (D-3) 1,000 UNIT (25MCG) TABLET PO SCH (08:23)
[2019-09-28] MEDS: *HR* LORazepam 0.5 MG TABLET PO SCH ×3 (09:50→14:12)
[2019-09-28] MEDS: Budesonide/Formoterol 160/4.5 1 PUFF INH IH SCH (10:42)
[2019-09-28 15:15] VITALS: BP 164/92
== END 2019-09-28 17:32 | DRG 193 ==
LOC: 2NENU 18:46 → EMEROOARM 18:46 → SUATTDRO 22:16 → 2NENU 23:13 → SUATTDRO 09-25 11:38
PROVIDERS: ADMIT Internal Medicine; ATTEND Pharmacist

== ENCOUNTER 2019-10-01 03:00 | Inpatient (IN) ==
[2019-10-01] MEDS ORDERED: methylPREDNISolone 125 MG/2 ML VIAL IVP ONE (03:50)
[2019-10-01] MEDS ORDERED: Ipratropium/Albuterol Neb 3 ML IH ONE (03:51)
[2019-10-01 05:06] LABS: ABG Base Excess 5 mEq/L (-2 to 3); ABG HCO3 35 mEq/L (21-27); ABG Oxygen Saturation 97 % (95-98); ABG PCO2 77 mmHg (35-45); ABG PH 7.27 pH Units (7.32-7.45); ABG PO2 104 mmHg (85-104); ABG TCO2 37 mEq/L (20-26)
[2019-10-01 05:34] LABS: Basophils # 0.1 K/mcL (0.0-0.2); Basophils % 0.3 %; Eosinophils # 0.1 K/mcL (0.0-0.6); Eosinophils % 0.5 %; Hematocrit 39.7 % (35.3-44.9); Hemoglobin 12.9 g/dL (11.5-15.4); Immature Granulocytes % 0.9 % (0-4); Lymphocytes # 0.9 K/mcL (0.6-4.6); Lymphocytes % 5.4 %; Mean Corpuscular HGB Conc 32.5 g/dL (31.6-35.5); Mean Corpuscular Hemoglobin 32.8 pg (28.0-33.3); Mean Platelet Volume 11.1 fL (9.4-12.4); Monocytes # 1.3 K/mcL (0.0-1.3); Monocytes % 7.4 %; Neutrophils # 14.6 K/mcL (1.6-8.9); Platelet Count 192 K/mcL (140-400); Red Blood Count 3.93 M/mcL (3.82-4.97); Red Cell Distribution Width 13.5 % (11.5-14.5); Segmented Neutrophils % 85.5 %; White Blood Count 17.1 K/mcL (4.3-11.1)
[2019-10-01 05:54] LABS: BUN/Creatinine Ratio 27 (6-26); Blood Urea Nitrogen 16 mg/dL (8-23); Calcium 9.1 mg/dL (8.6-10.3); Carbon Dioxide 31 mEq/L (23-29); Chloride 90 mEq/L (98-107); Glucose 120 mg/dL (70-105); Osmolality,Calculated 274 (280-300); Sodium 131 mEq/L (136-145); eGFR For African Americans > 60 (> 60); eGFR For Non-African Americans > 60 (> 60)
[2019-10-01 06:46] LABS: Troponin I 0.08 ng/mL (< 0.04)
[2019-10-01] MEDS ORDERED: Naloxone 0.4 MG/ML INJ IVP PRN (07:13)
[2019-10-01] MEDS ORDERED: Ondansetron 4 MG/2 ML VIAL IVP PRN (07:13)
[2019-10-01] MEDS ORDERED: Azithromycin 500 MG in 0.9 % Sodium Chloride 250 ML IVPB SCH (08:00)
[2019-10-01] MEDS: Ipratropium/Albuterol Neb 3 ML IH SCH ×5 (08:00→23:14)
[2019-10-01] MEDS: Folic Acid 1 MG TABLET PO SCH (10:14)
[2019-10-01] MEDS: cefTRIAXone 1,000 MG in 0.9 % Sodium Chloride Mini Bag 100 ML IVPB SCH (10:14)
[2019-10-01] MEDS: Budesonide/Formoterol 160/4.5 1 PUFF INH IH SCH ×2 (11:13→19:57)
[2019-10-01] MEDS: Menthol 9.1 MG LOZENGE PO PRN ×3 (14:45→21:15)
[2019-10-01] MEDS: MethylPREDNISolone 40 MG/ML VIAL IVP SCH (16:13)
[2019-10-01] MEDS ORDERED: *HR* LORazepam 2 MG/ML VIAL IVP ONE (21:00)
[2019-10-01 21:13] LABS: ABG Base Excess 5 mEq/L (-2 to 3); ABG HCO3 33 mEq/L (21-27); ABG Oxygen Saturation 91 % (95-98); ABG PCO2 59 mmHg (35-45); ABG PH 7.35 pH Units (7.32-7.45); ABG PO2 64 mmHg (85-104); ABG TCO2 35 mEq/L (20-26)
[2019-10-01] MEDS: Acetaminophen 325 MG TABLET PO PRN (21:14)
[2019-10-01] MEDS: Mirtazapine 15 MG TABLET PO SCH (21:15)
[2019-10-01 23:12] LABS: Adenovirus Not Detected (Not Detect); Bordetella Pertussis Not Detected (Not Detect); Chlamydophila pneumoniae Not Detected (Not Detect); Coronavirus 229E Not Detected (Not Detect); Coronavirus HKU1 Not Detected (Not Detect); Coronavirus NL63 Not Detected (Not Detect); Coronavirus OC43 Not Detected (Not Detect); Human Metapneumovirus Not Detected (Not Detect); Human Rhinovirus/Enterovirus Not Detected (Not Detect); Influenza A Subtype 2009 H1 Not Detected (Not Detect); Influenza B Not Detected (Not Detect); Mycoplasma pneumoniae Not Detected (Not Detect); Parainfluenza Virus 1 Not Detected (Not Detect); Parainfluenza Virus 2 Not Detected (Not Detect); Parainfluenza Virus 3 Not Detected (Not Detect); Parainfluenza Virus 4 Not Detected (Not Detect); Respiratory Syncytial Virus DETECTED (Not Detect)
[2019-10-02] MEDS: MethylPREDNISolone 40 MG/ML VIAL IVP SCH ×4 (01:14→23:26)
[2019-10-02] MEDS: Ipratropium/Albuterol Neb 3 ML IH SCH ×6 (04:02→23:34)
[2019-10-02] MEDS: Budesonide/Formoterol 160/4.5 1 PUFF INH IH SCH ×2 (07:38→19:55)
[2019-10-02] MEDS: Folic Acid 1 MG TABLET PO SCH (09:03)
[2019-10-02] MEDS: cefTRIAXone 1,000 MG in 0.9 % Sodium Chloride Mini Bag 100 ML IVPB SCH (09:04)
[2019-10-02] MEDS: Azithromycin 500 MG in 0.9 % Sodium Chloride 250 ML IVPB SCH (09:05)
[2019-10-02] MEDS: Acetaminophen 325 MG TABLET PO PRN (09:16)
[2019-10-02 10:48] LABS: Basophils % 0.1 %; Hematocrit 38.3 % (35.3-44.9); Hemoglobin 12.3 g/dL (11.5-15.4); Immature Granulocytes % 0.7 % (0-4); Lymphocytes # 0.6 K/mcL (0.6-4.6); Lymphocytes % 5.2 %; Mean Corpuscular HGB Conc 32.1 g/dL (31.6-35.5); Mean Corpuscular Hemoglobin 32.5 pg (28.0-33.3); Mean Corpuscular Volume 101.3 fL (83.0-100.0); Mean Platelet Volume 9.7 fL (9.4-12.4); Monocytes # 0.7 K/mcL (0.0-1.3); Monocytes % 6.6 %; Neutrophils # 9.5 K/mcL (1.6-8.9); Platelet Count 232 K/mcL (140-400); Red Blood Count 3.78 M/mcL (3.82-4.97); Red Cell Distribution Width 13.1 % (11.5-14.5); Segmented Neutrophils % 87.4 %; White Blood Count 10.9 K/mcL (4.3-11.1)
[2019-10-02 11:15] LABS: BUN/Creatinine Ratio 48 (6-26); Blood Urea Nitrogen 28 mg/dL (8-23); Calcium 8.8 mg/dL (8.6-10.3); Carbon Dioxide 30 mEq/L (23-29); Chloride 93 mEq/L (98-107); Glucose 151 mg/dL (70-105); Magnesium 1.6 mg/dL (1.6-2.6); Osmolality,Calculated 282 (280-300); Phosphorous 4.5 mg/dL (2.7-4.5); Potassium 4.4 mEq/L (3.5-5.1); Sodium 132 mEq/L (136-145); eGFR For African Americans > 60 (> 60); eGFR For Non-African Americans > 60 (> 60)
[2019-10-02] MEDS: Menthol 9.1 MG LOZENGE PO PRN ×2 (16:08→21:44)
[2019-10-02] MEDS: Mirtazapine 15 MG TABLET PO SCH (20:25)
[2019-10-02] MEDS ORDERED: Melatonin 3 MG TABLET PO ONE (23:17)
[2019-10-03] MEDS: Menthol 9.1 MG LOZENGE PO PRN (00:12)
[2019-10-03] MEDS: Ipratropium/Albuterol Neb 3 ML IH SCH ×6 (03:39→23:57)
[2019-10-03 05:14] LABS: Basophils % 0.2 %; Hematocrit 37.9 % (35.3-44.9); Hemoglobin 11.9 g/dL (11.5-15.4); Immature Granulocytes % 0.6 % (0-4); Lymphocytes # 0.6 K/mcL (0.6-4.6); Lymphocytes % 4.9 %; Mean Corpuscular HGB Conc 31.4 g/dL (31.6-35.5); Mean Corpuscular Hemoglobin 32.2 pg (28.0-33.3); Mean Corpuscular Volume 102.4 fL (83.0-100.0); Mean Platelet Volume 9.7 fL (9.4-12.4); Monocytes # 0.6 K/mcL (0.0-1.3); Monocytes % 4.6 %; Neutrophils # 11.1 K/mcL (1.6-8.9); Platelet Count 235 K/mcL (140-400); Red Cell Distribution Width 13.1 % (11.5-14.5); Segmented Neutrophils % 89.7 %; White Blood Count 12.4 K/mcL (4.3-11.1)
[2019-10-03 05:30] LABS: BUN/Creatinine Ratio 65 (6-26); Blood Urea Nitrogen 41 mg/dL (8-23); Carbon Dioxide 32 mEq/L (23-29); Chloride 92 mEq/L (98-107); Glucose 161 mg/dL (70-105); Osmolality,Calculated 286 (280-300); Sodium 131 mEq/L (136-145); eGFR For African Americans > 60 (> 60); eGFR For Non-African Americans > 60 (> 60)
[2019-10-03] MEDS ORDERED: Acetaminophen 325 MG TABLET PO PRN (07:01)
[2019-10-03] MEDS: *HR* Heparin 5,000 UNIT/ML VIAL SQ SCH ×2 (07:08→17:43)
[2019-10-03] MEDS: Budesonide/Formoterol 160/4.5 1 PUFF INH IH SCH ×2 (07:26→19:40)
[2019-10-03] MEDS ORDERED: Vitamin B Complex/Vit C/Vit E 1 EACH TABLET PO SCH (09:00)
[2019-10-03] MEDS: Azithromycin 500 MG in 0.9 % Sodium Chloride 250 ML IVPB SCH (09:15)
[2019-10-03] MEDS: cefTRIAXone 1,000 MG in 0.9 % Sodium Chloride Mini Bag 100 ML IVPB SCH (09:15)
[2019-10-03] MEDS: MethylPREDNISolone 40 MG/ML VIAL IVP SCH ×2 (09:16→17:43)
[2019-10-03] MEDS: Folic Acid 1 MG TABLET PO SCH (09:16)
[2019-10-03] MEDS: Thiamine (B-1) 100 MG TABLET PO SCH (09:16)
[2019-10-03] MEDS ORDERED: hydrOXYzine pamoate 25 MG CAPSULE PO ONE (12:20)
[2019-10-03] MEDS: Mirtazapine 15 MG TABLET PO SCH (21:01)
[2019-10-04 03:22] LABS: Basophils % 0.2 %; Hematocrit 37.6 % (35.3-44.9); Hemoglobin 11.8 g/dL (11.5-15.4); Immature Granulocytes % 0.5 % (0-4); Lymphocytes % 7.8 %; Mean Corpuscular HGB Conc 31.4 g/dL (31.6-35.5); Mean Corpuscular Hemoglobin 31.7 pg (28.0-33.3); Mean Corpuscular Volume 101.1 fL (83.0-100.0); Mean Platelet Volume 10.9 fL (9.4-12.4); Monocytes % 7.3 %; Neutrophils # 11.2 K/mcL (1.6-8.9); Platelet Count 170 K/mcL (140-400); Red Blood Count 3.72 M/mcL (3.82-4.97); Red Cell Distribution Width 12.9 % (11.5-14.5); Segmented Neutrophils % 84.2 %; White Blood Count 13.3 K/mcL (4.3-11.1)
[2019-10-04] MEDS: *HR* LORazepam 0.5 MG TABLET PO PRN ×2 (03:22→09:58)
[2019-10-04 03:32] LABS: BUN/Creatinine Ratio 59 (6-26); Blood Urea Nitrogen 24 mg/dL (8-23); Calcium 9.3 mg/dL (8.6-10.3); Carbon Dioxide 37 mEq/L (23-29); Chloride 93 mEq/L (98-107); Glucose 109 mg/dL (70-105); Osmolality,Calculated 285 (280-300); Potassium 4.9 mEq/L (3.5-5.1); Sodium 135 mEq/L (136-145); eGFR For African Americans > 60 (> 60); eGFR For Non-African Americans > 60 (> 60)
[2019-10-04] MEDS: Ipratropium/Albuterol Neb 3 ML IH SCH ×5 (04:06→20:05)
[2019-10-04 04:34] LABS: Platelet Estimate Normal (Normal); Reactive Lymphocytes Present (Not Present)
[2019-10-04] MEDS: MethylPREDNISolone 40 MG/ML VIAL IVP SCH ×2 (05:00→18:37)
[2019-10-04] MEDS: *HR* Heparin 5,000 UNIT/ML VIAL SQ SCH ×2 (05:00→18:37)
[2019-10-04] MEDS: Budesonide/Formoterol 160/4.5 1 PUFF INH IH SCH ×2 (07:34→20:05)
[2019-10-04] MEDS: cefTRIAXone 1,000 MG in 0.9 % Sodium Chloride Mini Bag 100 ML IVPB SCH (09:51)
[2019-10-04] MEDS: Folic Acid 1 MG TABLET PO SCH (09:56)
[2019-10-04] MEDS: Thiamine (B-1) 100 MG TABLET PO SCH (09:57)
[2019-10-04] MEDS: Azithromycin 500 MG in 0.9 % Sodium Chloride 250 ML IVPB SCH (09:58)
[2019-10-04] MEDS: Mirtazapine 15 MG TABLET PO SCH (21:29)
[2019-10-05] MEDS: Ipratropium/Albuterol Neb 3 ML IH SCH ×7 (00:10→23:03)
[2019-10-05 05:34] LABS: Basophils % 0.1 %; Hematocrit 38.2 % (35.3-44.9); Hemoglobin 11.7 g/dL (11.5-15.4); Immature Granulocytes % 0.4 % (0-4); Lymphocytes % 8.7 %; Mean Corpuscular HGB Conc 30.6 g/dL (31.6-35.5); Mean Corpuscular Hemoglobin 32.4 pg (28.0-33.3); Mean Corpuscular Volume 105.8 fL (83.0-100.0); Mean Platelet Volume 10.8 fL (9.4-12.4); Monocytes # 0.7 K/mcL (0.0-1.3); Monocytes % 5.8 %; Platelet Count 125 K/mcL (140-400); Red Blood Count 3.61 M/mcL (3.82-4.97); Red Cell Distribution Width 12.9 % (11.5-14.5); White Blood Count 11.8 K/mcL (4.3-11.1)
[2019-10-05 05:53] LABS: BUN/Creatinine Ratio 49 (6-26); Blood Urea Nitrogen 17 mg/dL (8-23); Calcium 9.5 mg/dL (8.6-10.3); Carbon Dioxide 40 mEq/L (23-29); Chloride 92 mEq/L (98-107); Glucose 92 mg/dL (70-105); Osmolality,Calculated 281 (280-300); Potassium 4.9 mEq/L (3.5-5.1); Sodium 135 mEq/L (136-145); eGFR For African Americans > 60 (> 60); eGFR For Non-African Americans > 60 (> 60)
[2019-10-05] MEDS: MethylPREDNISolone 40 MG/ML VIAL IVP SCH ×2 (06:26→18:07)
[2019-10-05] MEDS: *HR* Heparin 5,000 UNIT/ML VIAL SQ SCH ×2 (06:26→18:07)
[2019-10-05] MEDS: Budesonide/Formoterol 160/4.5 1 PUFF INH IH SCH ×2 (07:14→19:59)
[2019-10-05] MEDS: Thiamine (B-1) 100 MG TABLET PO SCH (08:54)
[2019-10-05] MEDS: Folic Acid 1 MG TABLET PO SCH (08:54)
[2019-10-05] MEDS: cefTRIAXone 1,000 MG in 0.9 % Sodium Chloride Mini Bag 100 ML IVPB SCH (08:55)
[2019-10-05] MEDS ORDERED: Azithromycin 250 MG TABLET PO SCH (09:00)
[2019-10-05] MEDS: amLODIPine 5 MG TABLET PO SCH (11:35)
[2019-10-05] MEDS: Mirtazapine 15 MG TABLET PO SCH (20:09)
[2019-10-05] MEDS: traZODone 50 MG TABLET PO SCH (20:11)
[2019-10-06] MEDS: Ipratropium/Albuterol Neb 3 ML IH SCH ×5 (04:01→20:03)
[2019-10-06] MEDS: *HR* Heparin 5,000 UNIT/ML VIAL SQ SCH ×2 (06:29→17:38)
[2019-10-06] MEDS: MethylPREDNISolone 40 MG/ML VIAL IVP SCH (06:29)
[2019-10-06 07:11] LABS: BUN/Creatinine Ratio 40 (6-26); Blood Urea Nitrogen 14 mg/dL (8-23); Calcium 9.6 mg/dL (8.6-10.3); Carbon Dioxide 43 mEq/L (23-29); Chloride 84 mEq/L (98-107); Glucose 87 mg/dL (70-105); Osmolality,Calculated 280 (280-300); Potassium 3.5 mEq/L (3.5-5.1); Sodium 135 mEq/L (136-145); eGFR For African Americans > 60 (> 60); eGFR For Non-African Americans > 60 (> 60)
[2019-10-06] MEDS: Budesonide/Formoterol 160/4.5 1 PUFF INH IH SCH ×2 (07:27→20:02)
[2019-10-06] MEDS: cefTRIAXone 1,000 MG in 0.9 % Sodium Chloride Mini Bag 100 ML IVPB SCH (10:22)
[2019-10-06] MEDS: Folic Acid 1 MG TABLET PO SCH (10:23)
[2019-10-06] MEDS: Thiamine (B-1) 100 MG TABLET PO SCH (10:23)
[2019-10-06] MEDS: amLODIPine 5 MG TABLET PO SCH (10:24)
[2019-10-06] MEDS ORDERED: Haloperidol Lactate 5 MG/ML VIAL IVP ONE ×2 (15:21→16:35)
[2019-10-06] MEDS: traZODone 50 MG TABLET PO SCH (21:03)
[2019-10-06] MEDS: Mirtazapine 15 MG TABLET PO SCH (21:04)
[2019-10-07] MEDS: Ipratropium/Albuterol Neb 3 ML IH SCH ×4 (00:02→11:37)
[2019-10-07] MEDS: *HR* OxyCODONE/APAP 5/325 TABLET PO PRN ×2 (00:07→10:16)
[2019-10-07] MEDS ORDERED: *HR* LORazepam Oral Conc 2 MG/ML SL ONE (05:10)
[2019-10-07] MEDS: *HR* Heparin 5,000 UNIT/ML VIAL SQ SCH (05:20)
[2019-10-07 05:32] LABS: ABG Base Excess 12 mEq/L (-2 to 3); ABG HCO3 42 mEq/L (21-27); ABG Oxygen Saturation 93 % (95-98); ABG PCO2 71 mmHg (35-45); ABG PH 7.38 pH Units (7.32-7.45); ABG PO2 71 mmHg (85-104); ABG TCO2 44 mEq/L (20-26)
[2019-10-07 06:03] LABS: BUN/Creatinine Ratio 41 (6-26); Blood Urea Nitrogen 21 mg/dL (8-23); Calcium 9.3 mg/dL (8.6-10.3); Carbon Dioxide 38 mEq/L (23-29); Chloride 87 mEq/L (98-107); Glucose 122 mg/dL (70-105); Osmolality,Calculated 280 (280-300); Potassium 3.5 mEq/L (3.5-5.1); Sodium 133 mEq/L (136-145); eGFR For African Americans > 60 (> 60); eGFR For Non-African Americans > 60 (> 60)
[2019-10-07] MEDS: Budesonide/Formoterol 160/4.5 1 PUFF INH IH SCH (07:20)
[2019-10-07] MEDS ORDERED: predniSONE 20 MG TABLET PO SCH (09:00)
[2019-10-07] MEDS: amLODIPine 5 MG TABLET PO SCH (10:15)
[2019-10-07] MEDS: Folic Acid 1 MG TABLET PO SCH (10:15)
[2019-10-07] MEDS: cefTRIAXone 1,000 MG in 0.9 % Sodium Chloride Mini Bag 100 ML IVPB SCH (10:16)
[2019-10-07] MEDS: Thiamine (B-1) 100 MG TABLET PO SCH (10:16)
[2019-10-07 11:50] VITALS: BP 133/89
[2019-10-07] MEDS ORDERED: *HR* LORazepam 1 MG TABLET PO ONE (14:00)
== END 2019-10-07 15:59 | DRG 190 ==
LOC: 2ANU 03:00 → EMEROOARM 03:00 → SUATTDRO 07:20 → 2ANU 08:40
PROVIDERS: ADMIT Student in an Organized Health Care Education/Training Program; ATTEND Internal Medicine

== ENCOUNTER 2019-11-03 11:17 | Observation (INO) ==
[2019-11-03] MEDS ORDERED: Ipratropium/Albuterol Neb 3 ML IH ONE (11:24)
[2019-11-03] MEDS ORDERED: Isovue-370 500 ML BOTTLE IVP ONE (11:24)
[2019-11-03] MEDS ORDERED: methylPREDNISolone 125 MG/2 ML VIAL IVP ONE (11:24)
[2019-11-03 12:01] LABS: Mean Platelet Volume 9.5 fL (9.4-12.4); Red Cell Distribution Width 14.1 % (11.5-14.5)
[2019-11-03 12:03] LABS: Hematocrit 37.8 % (35.3-44.9); Hemoglobin 11.7 g/dL (11.5-15.4); Mean Corpuscular Volume 100.3 fL (83.0-100.0); Monocytes # 1.1 K/mcL (0.0-1.3); Platelet Count 255 K/mcL (140-400); Red Blood Count 3.77 M/mcL (3.82-4.97); White Blood Count 27.3 K/mcL (4.3-11.1)
[2019-11-03 12:08] LABS: ABG Base Excess 17 mEq/L (-2 to 3); ABG HCO3 46 mEq/L (21-27); ABG Oxygen Saturation 96 % (95-98); ABG PCO2 70 mmHg (35-45); ABG PH 7.42 pH Units (7.32-7.45); ABG PO2 87 mmHg (85-104); ABG TCO2 48 mEq/L (20-26)
[2019-11-03 12:10] LABS: INR 0.9
[2019-11-03 12:33] LABS: BUN/Creatinine Ratio 48 (6-26); Blood Urea Nitrogen 16 mg/dL (8-23); Calcium 9.3 mg/dL (8.6-10.3); Carbon Dioxide 44 mEq/L (23-29); Chloride 83 mEq/L (98-107); Glucose 81 mg/dL (70-105); Osmolality,Calculated 272 (280-300); Potassium 4.8 mEq/L (3.5-5.1); Sodium 131 mEq/L (136-145); Troponin I < 0.03 ng/mL (< 0.04); eGFR For African Americans > 60 (> 60); eGFR For Non-African Americans > 60 (> 60)
[2019-11-03 12:38] LABS: Lymphocytes # 1.1 K/mcL (0.6-4.6); Neutrophils # 25.1 K/mcL (1.6-8.9)
[2019-11-03 12:39] LABS: Platelet Estimate Normal (Normal)
[2019-11-03] MEDS ORDERED: Piperacillin/Tazobactam 3.375 GM in Water for inj. (sterile) 20 ML IVP ONE (13:18)
[2019-11-03] MEDS ORDERED: levoFLOXacin 750 MG/150 ML 750 MG/150 ML BAG IVPB ONE (13:18)
[2019-11-03 13:36] LABS: Amphetamine Screen,Urine Negative ng/mL (Cutoff=1000); Barbiturate Screen,Urine Negative ng/mL (Cutoff=200); Benzodiazepines Screen,Urine Negative ng/mL (Cutoff=200); Cannabinoid Screen,Urine Negative ng/mL (Cutoff = 50); Cocaine Screen,Urine Negative ng/mL (Cutoff= 300); Opiate Screen,Urine Negative ng/mL (Cutoff=300); Phencyclidine Screen,Urine Negative ng/mL (Cutoff=25)
[2019-11-03] MEDS ORDERED: Ondansetron ODT 4 MG TAB.RAPDIS SL PRN (15:00)
[2019-11-03] MEDS ORDERED: Naloxone 0.4 MG/ML INJ IVP PRN (15:00)
[2019-11-03] MEDS: *HR* Heparin 5,000 UNIT/ML VIAL SQ SCH (16:53)
[2019-11-03] MEDS: *HR* OxyCODONE/APAP 5/325 TABLET PO PRN (16:53)
[2019-11-03] MEDS: Budesonide/Formoterol 160/4.5 1 PUFF INH IH SCH (19:53)
[2019-11-03] MEDS: Ipratropium/Albuterol Neb 3 ML IH PRN (19:53)
[2019-11-03] MEDS: Mirtazapine 15 MG TABLET PO SCH (20:11)
[2019-11-03 20:59] LABS: Adenovirus Not Detected (Not Detect); Bordetella Pertussis Not Detected (Not Detect); Coronavirus 229E Not Detected (Not Detect); Coronavirus HKU1 Not Detected (Not Detect); Coronavirus NL63 Not Detected (Not Detect); Coronavirus OC43 Not Detected (Not Detect); Human Metapneumovirus Not Detected (Not Detect); Human Rhinovirus/Enterovirus Not Detected (Not Detect); Influenza A Subtype 2009 H1 Not Detected (Not Detect); Influenza B Not Detected (Not Detect); Parainfluenza Virus 1 Not Detected (Not Detect); Parainfluenza Virus 2 Not Detected (Not Detect); Parainfluenza Virus 3 Not Detected (Not Detect); Parainfluenza Virus 4 Not Detected (Not Detect); Respiratory Syncytial Virus Not Detected (Not Detect)
[2019-11-03 21:00] LABS: Chlamydophila pneumoniae Not Detected (Not Detect); Mycoplasma pneumoniae Not Detected (Not Detect)
[2019-11-04 01:00] LABS: Basophils # 0.1 K/mcL (0.0-0.2); Basophils % 0.2 %; Hematocrit 34.7 % (35.3-44.9); Hemoglobin 10.8 g/dL (11.5-15.4); Immature Granulocytes % 2.6 % (0-4); Lymphocytes # 0.5 K/mcL (0.6-4.6); Lymphocytes % 1.9 %; Mean Corpuscular HGB Conc 31.1 g/dL (31.6-35.5); Mean Corpuscular Hemoglobin 30.9 pg (28.0-33.3); Mean Corpuscular Volume 99.4 fL (83.0-100.0); Mean Platelet Volume 10.5 fL (9.4-12.4); Monocytes # 0.6 K/mcL (0.0-1.3); Monocytes % 2.6 %; Neutrophils # 21.8 K/mcL (1.6-8.9); Platelet Count 201 K/mcL (140-400); Red Blood Count 3.49 M/mcL (3.82-4.97); Red Cell Distribution Width 13.8 % (11.5-14.5); Segmented Neutrophils % 92.7 %; White Blood Count 23.5 K/mcL (4.3-11.1)
[2019-11-04 01:24] LABS: BUN/Creatinine Ratio 53 (6-26); Blood Urea Nitrogen 19 mg/dL (8-23); Calcium 8.4 mg/dL (8.6-10.3); Carbon Dioxide 40 mEq/L (23-29); Chloride 85 mEq/L (98-107); Glucose 76 mg/dL (70-105); Osmolality,Calculated 271 (280-300); Potassium 4.9 mEq/L (3.5-5.1); Sodium 130 mEq/L (136-145); eGFR For African Americans > 60 (> 60); eGFR For Non-African Americans > 60 (> 60)
[2019-11-04 01:35] LABS: Platelet Estimate Normal (Normal)
[2019-11-04 01:36] LABS: Basophilic Stippling 1+ (Not Present); Polychromasia 1+ (Not Present)
[2019-11-04] MEDS: *HR* Heparin 5,000 UNIT/ML VIAL SQ SCH ×2 (06:20→17:48)
[2019-11-04] MEDS: predniSONE 20 MG TABLET PO SCH (08:43)
[2019-11-04] MEDS: Cholecalciferol (D-3) 1,000 UNIT (25MCG) TABLET PO SCH (08:43)
[2019-11-04] MEDS: Folic Acid 1 MG TABLET PO SCH (08:43)
[2019-11-04] MEDS: Thiamine (B-1) 100 MG TABLET PO SCH (08:44)
[2019-11-04] MEDS: Vitamin B Complex/Vit C/Vit E 1 EACH TABLET PO SCH (08:44)
[2019-11-04] MEDS: amLODIPine 5 MG TABLET PO SCH (08:44)
[2019-11-04] MEDS: levoFLOXacin 750 MG TABLET PO SCH (08:44)
[2019-11-04] MEDS: *HR* OxyCODONE/APAP 5/325 TABLET PO PRN ×3 (08:50→20:28)
[2019-11-04] MEDS: Ipratropium/Albuterol Neb 3 ML IH PRN (09:33)
[2019-11-04 11:02] LABS: Bilirubin,Urine Negative (Negative); Blood,Urine Negative (Negative); Clarity,Urine Clear (Clear); Color,Urine Yellow (Yellow); Glucose,Urine (UA) Normal (Normal); Ketones,Urine Negative (Negative); Leukocyte Esterase,Urine Negative (Negative); Nitrite,Urine Negative (Negative); Protein,Urine 30 mg/dL (Neg-Trace); Specific Gravity,Urine 1.019 (1.010-1.025); Urobilinogen,Urine Normal (Normal)
[2019-11-04 11:04] LABS: Bacteria,Urine None Seen per hpf (None-Few); Hyaline Casts,Urine None Seen per lpf (None-Few); Squamous Epithelial Cell,Urine Many per lpf (None-Few)
[2019-11-04] MEDS: Budesonide/Formoterol 160/4.5 1 PUFF INH IH SCH ×2 (11:44→19:57)
[2019-11-04] MEDS ORDERED: Furosemide 40 MG/4 ML VIAL IVP ONE (13:33)
[2019-11-04] MEDS: clonazePAM 0.5 MG TABLET PO SCH ×2 (14:47→20:27)
[2019-11-04] MEDS: Ipratropium/Albuterol Neb 3 ML IH SCH ×2 (15:13→19:57)
[2019-11-04] MEDS: Mirtazapine 15 MG TABLET PO SCH (20:27)
[2019-11-04] MEDS: Nicotine 21 MG PATCH.TD24 TD SCH (20:43)
[2019-11-05] MEDS: Ipratropium/Albuterol Neb 3 ML IH SCH ×7 (00:04→23:15)
[2019-11-05 04:50] LABS: Basophils % 0.2 %; Eosinophils % 0.1 %; Hematocrit 35.8 % (35.3-44.9); Hemoglobin 10.6 g/dL (11.5-15.4); Immature Granulocytes % 2.2 % (0-4); Lymphocytes # 1.1 K/mcL (0.6-4.6); Lymphocytes % 5.8 %; Mean Corpuscular HGB Conc 29.6 g/dL (31.6-35.5); Mean Corpuscular Hemoglobin 30.2 pg (28.0-33.3); Mean Platelet Volume 10.6 fL (9.4-12.4); Monocytes # 1.4 K/mcL (0.0-1.3); Monocytes % 7.3 %; Neutrophils # 16.2 K/mcL (1.6-8.9); Platelet Count 208 K/mcL (140-400); Red Blood Count 3.51 M/mcL (3.82-4.97); Segmented Neutrophils % 84.4 %; White Blood Count 19.2 K/mcL (4.3-11.1)
[2019-11-05] MEDS: *HR* Heparin 5,000 UNIT/ML VIAL SQ SCH ×2 (05:11→17:46)
[2019-11-05 05:20] LABS: BUN/Creatinine Ratio 59 (6-26); Blood Urea Nitrogen 27 mg/dL (8-23); Calcium 8.6 mg/dL (8.6-10.3); Carbon Dioxide 45 mEq/L (23-29); Chloride 86 mEq/L (98-107); Glucose 96 mg/dL (70-105); Osmolality,Calculated 281 (280-300); Potassium 4.3 mEq/L (3.5-5.1); Sodium 133 mEq/L (136-145); eGFR For African Americans > 60 (> 60); eGFR For Non-African Americans > 60 (> 60)
[2019-11-05] MEDS: Budesonide/Formoterol 160/4.5 1 PUFF INH IH SCH ×2 (07:34→19:59)
[2019-11-05] MEDS: Folic Acid 1 MG TABLET PO SCH (08:14)
[2019-11-05] MEDS: Cholecalciferol (D-3) 1,000 UNIT (25MCG) TABLET PO SCH (08:15)
[2019-11-05] MEDS: clonazePAM 0.5 MG TABLET PO SCH ×2 (08:15→21:56)
[2019-11-05] MEDS: Vitamin B Complex/Vit C/Vit E 1 EACH TABLET PO SCH (08:15)
[2019-11-05] MEDS: predniSONE 20 MG TABLET PO SCH (08:15)
[2019-11-05] MEDS: Thiamine (B-1) 100 MG TABLET PO SCH (08:15)
[2019-11-05] MEDS: *HR* OxyCODONE/APAP 5/325 TABLET PO PRN ×3 (08:15→21:55)
[2019-11-05] MEDS: amLODIPine 5 MG TABLET PO SCH (08:16)
[2019-11-05] MEDS: levoFLOXacin 750 MG TABLET PO SCH (08:16)
[2019-11-05] MEDS: Nicotine 21 MG PATCH.TD24 TD SCH (08:16)
[2019-11-05] MEDS ORDERED: Furosemide 40 MG TABLET PO ONE (11:29)
[2019-11-05] MEDS: Mirtazapine 15 MG TABLET PO SCH (21:56)
[2019-11-06] MEDS: Ipratropium/Albuterol Neb 3 ML IH SCH ×3 (03:31→11:25)
[2019-11-06 04:29] LABS: Hematocrit 36.6 % (35.3-44.9); Hemoglobin 10.8 g/dL (11.5-15.4); Mean Corpuscular HGB Conc 29.5 g/dL (31.6-35.5); Mean Corpuscular Hemoglobin 30.4 pg (28.0-33.3); Mean Corpuscular Volume 103.1 fL (83.0-100.0); Mean Platelet Volume 10.8 fL (9.4-12.4); Platelet Count 199 K/mcL (140-400); Red Blood Count 3.55 M/mcL (3.82-4.97); Red Cell Distribution Width 14.2 % (11.5-14.5); White Blood Count 18.5 K/mcL (4.3-11.1)
[2019-11-06 04:35] LABS: VBG HCO3 40 mEq/L (21-27); VBG PCO2 71 mmHg (41-51); VBG PH 7.36 pH Units (7.32-7.42); VBG PO2 135 mmHg (25-50)
[2019-11-06 04:40] LABS: BUN/Creatinine Ratio 57 (6-26); Blood Urea Nitrogen 30 mg/dL (8-23); Calcium 8.3 mg/dL (8.6-10.3); Carbon Dioxide 39 mEq/L (23-29); Chloride 90 mEq/L (98-107); Glucose 126 mg/dL (70-105); Osmolality,Calculated 284 (280-300); Potassium 4.9 mEq/L (3.5-5.1); Sodium 133 mEq/L (136-145); eGFR For African Americans > 60 (> 60); eGFR For Non-African Americans > 60 (> 60)
[2019-11-06] MEDS: *HR* Heparin 5,000 UNIT/ML VIAL SQ SCH (06:03)
[2019-11-06] MEDS: Budesonide/Formoterol 160/4.5 1 PUFF INH IH SCH (07:21)
[2019-11-06 07:58] VITALS: BP 130/68
[2019-11-06] MEDS: *HR* OxyCODONE/APAP 5/325 TABLET PO PRN (08:30)
[2019-11-06] MEDS: Folic Acid 1 MG TABLET PO SCH (08:31)
[2019-11-06] MEDS: clonazePAM 0.5 MG TABLET PO SCH (08:31)
[2019-11-06] MEDS: Cholecalciferol (D-3) 1,000 UNIT (25MCG) TABLET PO SCH (08:31)
[2019-11-06] MEDS: amLODIPine 5 MG TABLET PO SCH (08:31)
[2019-11-06] MEDS: Thiamine (B-1) 100 MG TABLET PO SCH (08:32)
[2019-11-06] MEDS: levoFLOXacin 750 MG TABLET PO SCH (08:32)
[2019-11-06] MEDS: Vitamin B Complex/Vit C/Vit E 1 EACH TABLET PO SCH (08:32)
[2019-11-06] MEDS: Nicotine 21 MG PATCH.TD24 TD SCH (08:33)
[2019-11-06] MEDS ORDERED: predniSONE 20 MG TABLET PO SCH (09:00)
== END 2019-11-06 15:17 ==
LOC: 2NENU 11:17 → EMEROOARM 11:17 → SUATTDRO 13:37 → 2NENU 14:15
PROVIDERS: ADMIT Internal Medicine; ATTEND Internal Medicine

== ENCOUNTER 2019-12-02 08:22 | Inpatient (IN) ==
[2019-12-02] MEDS ORDERED: Ipratropium/Albuterol Neb 3 ML IH ONE (08:27)
[2019-12-02] MEDS ORDERED: methylPREDNISolone 125 MG/2 ML VIAL IVP ONE (08:27)
[2019-12-02] MEDS ORDERED: *HR* Rocuronium Bromide 100 MG/10 ML VIAL IVC ONE (09:24)
[2019-12-02] MEDS ORDERED: *HR* Etomidate 20 MG/10 ML AMPUL IVP ONE ×2 (09:24→13:15)
[2019-12-02 09:37] LABS: Basophils % 0.2 %; Eosinophils # 0.1 K/mcL (0.0-0.6); Eosinophils % 0.3 %; Hematocrit 37.8 % (35.3-44.9); Hemoglobin 11.9 g/dL (11.5-15.4); Lymphocytes # 1.1 K/mcL (0.6-4.6); Lymphocytes % 4.8 %; Mean Corpuscular HGB Conc 31.5 g/dL (31.6-35.5); Mean Corpuscular Hemoglobin 29.5 pg (28.0-33.3); Mean Corpuscular Volume 93.8 fL (83.0-100.0); Mean Platelet Volume 9.4 fL (9.4-12.4); Monocytes # 1.1 K/mcL (0.0-1.3); Monocytes % 4.9 %; Neutrophils # 19.2 K/mcL (1.6-8.9); Platelet Count 257 K/mcL (140-400); Red Blood Count 4.03 M/mcL (3.82-4.97); Red Cell Distribution Width 13.2 % (11.5-14.5); Segmented Neutrophils % 88.8 %; White Blood Count 21.7 K/mcL (4.3-11.1)
[2019-12-02] MEDS: Dexmedetomidine HCl 400 MCG/100 ML MLS IVC SCH (09:45)
[2019-12-02 09:49] LABS: VBG HCO3 43 mEq/L (21-27); VBG PCO2 97 mmHg (41-51); VBG PH 7.25 pH Units (7.32-7.42); VBG PO2 200 mmHg (25-50)
[2019-12-02 09:59] LABS: BUN/Creatinine Ratio 50 (6-26); Blood Urea Nitrogen 16 mg/dL (8-23); Calcium 9.2 mg/dL (8.6-10.3); Carbon Dioxide 40 mEq/L (23-29); Chloride 76 mEq/L (98-107); Glucose 113 mg/dL (70-105); Osmolality,Calculated 252 (280-300); Potassium 3.8 mEq/L (3.5-5.1); Sodium 120 mEq/L (136-145); Troponin I < 0.03 ng/mL (< 0.04); eGFR For African Americans > 60 (> 60); eGFR For Non-African Americans > 60 (> 60)
[2019-12-02] MEDS ORDERED: Azithromycin 500 MG in 0.9 % Sodium Chloride 250 ML IVPB ONE (10:16)
[2019-12-02] MEDS ORDERED: Naloxone 0.4 MG/ML INJ IVP PRN (11:04)
[2019-12-02] MEDS ORDERED: Furosemide 20 MG/2 ML VIAL IVP ONE (11:09)
[2019-12-02] MEDS ORDERED: Albuterol 2.5 MG/3 ML NEBULIZER IH PRN (11:09)
[2019-12-02 11:25] LABS: VBG HCO3 41 mEq/L (21-27); VBG PCO2 88 mmHg (41-51); VBG PH 7.27 pH Units (7.32-7.42); VBG PO2 109 mmHg (25-50)
[2019-12-02] MEDS ORDERED: Artificial Tears SOLN 15 ML BOTTLE BOTH EYES PRN ×2 (12:27→12:41)
[2019-12-02] MEDS ORDERED: *HR* Rocuronium Bromide 50 MG/5 ML VIAL IVP ONE (13:15)
[2019-12-02] MEDS: FentaNYL (PF) 1,000 MCG in 0.9 % Sodium Chloride 80 ML IVC SCH (13:45)
[2019-12-02 14:36] LABS: Adenovirus Not Detected (Not Detect); Bordetella Pertussis Not Detected (Not Detect); Chlamydophila pneumoniae Not Detected (Not Detect); Coronavirus 229E Not Detected (Not Detect); Coronavirus HKU1 Not Detected (Not Detect); Coronavirus NL63 Not Detected (Not Detect); Coronavirus OC43 Not Detected (Not Detect); Human Metapneumovirus DETECTED (Not Detect); Human Rhinovirus/Enterovirus Not Detected (Not Detect); Influenza A Subtype 2009 H1 Not Detected (Not Detect); Influenza B Not Detected (Not Detect); Mycoplasma pneumoniae Not Detected (Not Detect); Parainfluenza Virus 1 Not Detected (Not Detect); Parainfluenza Virus 2 Not Detected (Not Detect); Parainfluenza Virus 3 Not Detected (Not Detect); Parainfluenza Virus 4 Not Detected (Not Detect); Respiratory Syncytial Virus Not Detected (Not Detect)
[2019-12-02] MEDS ORDERED: *HR* LORazepam 2 MG/ML VIAL ONE (15:41)
[2019-12-02] MEDS ORDERED: *HR* LORazepam 2 MG/ML VIAL IVP STA (15:42)
[2019-12-02] MEDS ORDERED: levETIRAcetam 1,000 MG in 0.9 % Sodium Chloride 100 ML IVPB ONE (15:43)
[2019-12-02] MEDS ORDERED: Artificial Tears SOLN 15 ML BOTTLE BOTH EYES SCH (16:00)
[2019-12-02] MEDS: CLEAR EYES NATURAL TEARS 15 ML BOTTLE BOTH EYES SCH ×6 (16:02→23:35)
[2019-12-02] MEDS: Ipratropium/Albuterol Neb 3 ML IH SCH ×2 (16:17→21:33)
[2019-12-02] MEDS: methylPREDNISolone 125 MG/2 ML VIAL IVP SCH ×2 (16:25→23:34)
[2019-12-02 16:26] LABS: ABG Base Excess 10 mEq/L (-2 to 3); ABG HCO3 36 mEq/L (21-27); ABG Oxygen Saturation 98 % (95-98); ABG PCO2 54 mmHg (35-45); ABG PH 7.43 pH Units (7.32-7.45); ABG PO2 112 mmHg (85-104); ABG TCO2 38 mEq/L (20-26); Blood Gas VT 400 cc
[2019-12-02] MEDS: *HR* Heparin 5,000 UNIT/ML VIAL SQ SCH (17:23)
[2019-12-02] MEDS ORDERED: 0.9 % Sodium Chloride 1,000 ML IV ONE (19:23)
[2019-12-02] MEDS: Chlorhexidine Rinse 15 ML MOUTHWASH MM SCH (19:36)
[2019-12-02] MEDS: CLEAR EYES NATURAL TEARS 15 ML BOTTLE BOTH EYES PRN (19:36)
[2019-12-02 22:28] LABS: BUN/Creatinine Ratio 39 (6-26); Blood Urea Nitrogen 17 mg/dL (8-23); Calcium 8.3 mg/dL (8.6-10.3); Carbon Dioxide 34 mEq/L (23-29); Chloride 81 mEq/L (98-107); Glucose 136 mg/dL (70-105); Osmolality,Calculated 260 (280-300); Potassium 3.9 mEq/L (3.5-5.1); Sodium 123 mEq/L (136-145); eGFR For African Americans > 60 (> 60); eGFR For Non-African Americans > 60 (> 60)
[2019-12-02] MEDS: 0.9 % Sodium Chloride 1,000 ML IVC SCH (23:25)
[2019-12-03] MEDS: Ipratropium/Albuterol Neb 3 ML IH SCH ×6 (03:50→23:45)
[2019-12-03 04:18] LABS: Basophils % 0.2 %; Hematocrit 33.4 % (35.3-44.9); Hemoglobin 10.5 g/dL (11.5-15.4); Immature Granulocytes % 1.4 % (0-4); Lymphocytes # 0.5 K/mcL (0.6-4.6); Lymphocytes % 2.9 %; Mean Corpuscular HGB Conc 31.4 g/dL (31.6-35.5); Mean Corpuscular Hemoglobin 29.8 pg (28.0-33.3); Mean Corpuscular Volume 94.9 fL (83.0-100.0); Mean Platelet Volume 9.5 fL (9.4-12.4); Monocytes # 0.3 K/mcL (0.0-1.3); Monocytes % 1.6 %; Platelet Count 209 K/mcL (140-400); Red Blood Count 3.52 M/mcL (3.82-4.97); Red Cell Distribution Width 13.6 % (11.5-14.5); Segmented Neutrophils % 93.9 %; White Blood Count 18.1 K/mcL (4.3-11.1)
[2019-12-03] MEDS: CLEAR EYES NATURAL TEARS 15 ML BOTTLE BOTH EYES SCH ×9 (04:19→23:29)
[2019-12-03 04:37] LABS: BUN/Creatinine Ratio 33 (6-26); Blood Urea Nitrogen 14 mg/dL (8-23); Calcium 8.5 mg/dL (8.6-10.3); Carbon Dioxide 35 mEq/L (23-29); Chloride 81 mEq/L (98-107); Glucose 149 mg/dL (70-105); Magnesium 1.3 mg/dL (1.6-2.6); Osmolality,Calculated 263 (280-300); Phosphorous 3.5 mg/dL (2.7-4.5); Potassium 3.9 mEq/L (3.5-5.1); Sodium 125 mEq/L (136-145); eGFR For African Americans > 60 (> 60); eGFR For Non-African Americans > 60 (> 60)
[2019-12-03 04:45] LABS: ABG Base Excess 8 mEq/L (-2 to 3); ABG HCO3 35 mEq/L (21-27); ABG Oxygen Saturation 83 % (95-98); ABG PCO2 60 mmHg (35-45); ABG PH 7.38 pH Units (7.32-7.45); ABG PO2 50 mmHg (85-104); ABG TCO2 37 mEq/L (20-26); Blood Gas Modality ASSIST CONTROL; Blood Gas VT 400 cc
[2019-12-03] MEDS: FentaNYL (PF) 1,000 MCG in 0.9 % Sodium Chloride 80 ML IVC SCH ×2 (05:18→16:33)
[2019-12-03] MEDS: *HR* Heparin 5,000 UNIT/ML VIAL SQ SCH ×2 (05:19→17:11)
[2019-12-03] MEDS: 0.9 % Sodium Chloride 1,000 ML IVC SCH (07:56)
[2019-12-03] MEDS: methylPREDNISolone 125 MG/2 ML VIAL IVP SCH ×3 (07:57→23:28)
[2019-12-03] MEDS: Chlorhexidine Rinse 15 ML MOUTHWASH MM SCH ×2 (07:57→20:21)
[2019-12-03] MEDS: Azithromycin 500 MG in 0.9 % Sodium Chloride 250 ML IVPB SCH (07:57)
[2019-12-03 08:55] LABS: BUN/Creatinine Ratio 38 (6-26); Blood Urea Nitrogen 13 mg/dL (8-23); Carbon Dioxide 32 mEq/L (23-29); Chloride 85 mEq/L (98-107); Glucose 152 mg/dL (70-105); Osmolality,Calculated 265 (280-300); Potassium 3.9 mEq/L (3.5-5.1); Sodium 126 mEq/L (136-145); eGFR For African Americans > 60 (> 60); eGFR For Non-African Americans > 60 (> 60)
[2019-12-03] MEDS ORDERED: Thiamine (B-1) 100 MG in 0.9 % Sodium Chloride 50 ML IVPB SCH (09:00)
[2019-12-03] MEDS: Dexmedetomidine HCl 400 MCG/100 ML MLS IVC SCH (09:42)
[2019-12-03] MEDS: Nystatin Cream 15 GM TUBE TP SCH ×2 (15:49→20:22)
[2019-12-03] MEDS ORDERED: D5% in Water 1,000 ML IVC PRN (17:18)
[2019-12-03] MEDS ORDERED: Dextrose Gel 15 GM/37.5 ML TUBE PO PRN ×2 (17:18)
[2019-12-03] MEDS ORDERED: *HR* Dextrose 50 % in Water (Syg) 50 ML SYRINGE IVP PRN (17:18)
[2019-12-03] MEDS: Insulin LISPRO 300 UNITS/3 ML VIAL SQ SCH ×2 (17:44→23:27)
[2019-12-04] MEDS: FentaNYL (PF) 1,000 MCG in 0.9 % Sodium Chloride 80 ML IVC SCH ×3 (01:48→20:11)
[2019-12-04] MEDS: Ipratropium/Albuterol Neb 3 ML IH SCH ×6 (03:10→23:48)
[2019-12-04 04:12] LABS: ABG Base Excess 9 mEq/L (-2 to 3); ABG HCO3 36 mEq/L (21-27); ABG Oxygen Saturation 92 % (95-98); ABG PCO2 58 mmHg (35-45); ABG PO2 66 mmHg (85-104); ABG TCO2 37 mEq/L (20-26); Blood Gas Modality AF; Blood Gas VT 370 cc
[2019-12-04] MEDS: CLEAR EYES NATURAL TEARS 15 ML BOTTLE BOTH EYES SCH ×6 (04:25→23:10)
[2019-12-04 04:40] LABS: Basophils % 0.1 %; Hematocrit 31.7 % (35.3-44.9); Lymphocytes # 0.4 K/mcL (0.6-4.6); Mean Corpuscular HGB Conc 31.5 g/dL (31.6-35.5); Mean Corpuscular Hemoglobin 30.4 pg (28.0-33.3); Mean Corpuscular Volume 96.4 fL (83.0-100.0); Monocytes # 0.7 K/mcL (0.0-1.3); Monocytes % 3.1 %; Neutrophils # 20.2 K/mcL (1.6-8.9); Platelet Count 131 K/mcL (140-400); Red Blood Count 3.29 M/mcL (3.82-4.97); Segmented Neutrophils % 92.8 %; White Blood Count 21.8 K/mcL (4.3-11.1)
[2019-12-04 05:03] LABS: BUN/Creatinine Ratio 37 (6-26); Blood Urea Nitrogen 14 mg/dL (8-23); Carbon Dioxide 32 mEq/L (23-29); Chloride 84 mEq/L (98-107); Glucose 160 mg/dL (70-105); Osmolality,Calculated 272 (280-300); Potassium 3.8 mEq/L (3.5-5.1); Sodium 129 mEq/L (136-145); eGFR For African Americans > 60 (> 60); eGFR For Non-African Americans > 60 (> 60)
[2019-12-04] MEDS: *HR* Heparin 5,000 UNIT/ML VIAL SQ SCH ×2 (05:03→17:52)
[2019-12-04] MEDS: Insulin LISPRO 300 UNITS/3 ML VIAL SQ SCH ×4 (06:26→23:10)
[2019-12-04 08:19] LABS: Bilirubin,Urine Moderate (Negative); Blood,Urine Negative (Negative); Clarity,Urine Cloudy (Clear); Color,Urine Yellow (Yellow); Glucose,Urine (UA) Normal (Normal); Ketones,Urine 15 mg/dL (Negative); Leukocyte Esterase,Urine Trace (Negative); Nitrite,Urine Negative (Negative); Protein,Urine Trace mg/dL (Neg-Trace); Specific Gravity,Urine 1.023 (1.010-1.025); Urobilinogen,Urine Normal (Normal)
[2019-12-04 08:30] LABS: Bacteria,Urine None Seen per hpf (None-Few); Hyaline Casts,Urine Moderate per lpf (None-Few); RBC,Urine 50-100 per hpf (0-3); Squamous Epithelial Cell,Urine Many per lpf (None-Few)
[2019-12-04] MEDS: Chlorhexidine Rinse 15 ML MOUTHWASH MM SCH ×2 (08:45→19:45)
[2019-12-04] MEDS: methylPREDNISolone 125 MG/2 ML VIAL IVP SCH ×3 (08:45→23:10)
[2019-12-04] MEDS: Azithromycin 500 MG in 0.9 % Sodium Chloride 250 ML IVPB SCH (08:46)
[2019-12-04 08:47] LABS: Uric Acid Crystals,Urine Present
[2019-12-04] MEDS: Nystatin Cream 15 GM TUBE TP SCH ×2 (08:47→19:45)
[2019-12-04] MEDS: Dexmedetomidine HCl 400 MCG/100 ML MLS IVC SCH (10:34)
[2019-12-04] MEDS: Thiamine (B-1) 100 MG TABLET PO SCH (10:34)
[2019-12-04] MEDS: 0.9 % Sodium Chloride 1,000 ML IVC SCH ×2 (11:18→21:45)
[2019-12-05] MEDS: Dexmedetomidine HCl 400 MCG/100 ML MLS IVC SCH ×2 (00:28→16:03)
[2019-12-05] MEDS: FentaNYL (PF) 1,000 MCG in 0.9 % Sodium Chloride 80 ML IVC SCH ×3 (02:54→17:36)
[2019-12-05] MEDS: Ipratropium/Albuterol Neb 3 ML IH SCH ×6 (03:21→23:16)
[2019-12-05] MEDS: CLEAR EYES NATURAL TEARS 15 ML BOTTLE BOTH EYES SCH ×5 (03:54→19:32)
[2019-12-05 04:14] LABS: Basophils % 0.2 %; Hematocrit 32.4 % (35.3-44.9); Immature Granulocytes % 3.8 % (0-4); Lymphocytes # 0.4 K/mcL (0.6-4.6); Lymphocytes % 2.1 %; Mean Corpuscular HGB Conc 30.9 g/dL (31.6-35.5); Mean Corpuscular Hemoglobin 29.2 pg (28.0-33.3); Mean Corpuscular Volume 94.7 fL (83.0-100.0); Mean Platelet Volume 9.7 fL (9.4-12.4); Monocytes # 0.6 K/mcL (0.0-1.3); Neutrophils # 18.3 K/mcL (1.6-8.9); Platelet Count 208 K/mcL (140-400); Red Blood Count 3.42 M/mcL (3.82-4.97); Red Cell Distribution Width 13.8 % (11.5-14.5); Segmented Neutrophils % 90.9 %; White Blood Count 20.1 K/mcL (4.3-11.1)
[2019-12-05 04:24] LABS: ABG Base Excess 8 mEq/L (-2 to 3); ABG HCO3 35 mEq/L (21-27); ABG Oxygen Saturation 94 % (95-98); ABG PCO2 59 mmHg (35-45); ABG PH 7.39 pH Units (7.32-7.45); ABG PO2 76 mmHg (85-104); ABG TCO2 37 mEq/L (20-26); Blood Gas Modality AF; Blood Gas VT 370 cc
[2019-12-05 04:33] LABS: BUN/Creatinine Ratio 41 (6-26); Blood Urea Nitrogen 14 mg/dL (8-23); Calcium 8.7 mg/dL (8.6-10.3); Carbon Dioxide 34 mEq/L (23-29); Chloride 89 mEq/L (98-107); Glucose 137 mg/dL (70-105); Osmolality,Calculated 275 (280-300); Potassium 3.4 mEq/L (3.5-5.1); Sodium 131 mEq/L (136-145); eGFR For African Americans > 60 (> 60); eGFR For Non-African Americans > 60 (> 60)
[2019-12-05] MEDS: *HR* Heparin 5,000 UNIT/ML VIAL SQ SCH ×2 (05:20→17:43)
[2019-12-05] MEDS: Insulin LISPRO 300 UNITS/3 ML VIAL SQ SCH ×3 (05:27→17:44)
[2019-12-05] MEDS: Chlorhexidine Rinse 15 ML MOUTHWASH MM SCH ×2 (08:50→19:31)
[2019-12-05] MEDS: methylPREDNISolone 125 MG/2 ML VIAL IVP SCH ×2 (08:50→16:03)
[2019-12-05] MEDS: Thiamine (B-1) 100 MG TABLET PO SCH (08:50)
[2019-12-05] MEDS: Azithromycin 500 MG in 0.9 % Sodium Chloride 250 ML IVPB SCH (08:50)
[2019-12-05] MEDS: 0.9 % Sodium Chloride 1,000 ML IVC SCH (08:52)
[2019-12-05] MEDS: Nystatin Cream 15 GM TUBE TP SCH ×2 (08:52→19:31)
[2019-12-05] MEDS ORDERED: 0.9 % Sodium Chloride 1,000 ML IVC SCH (09:47)
[2019-12-05 10:28] LABS: Basophils # 0.1 K/mcL (0.0-0.2); Basophils % 0.2 %; Hematocrit 30.9 % (35.3-44.9); Hemoglobin 9.5 g/dL (11.5-15.4); Immature Granulocytes % 4.8 % (0-4); Lymphocytes # 0.5 K/mcL (0.6-4.6); Lymphocytes % 2.2 %; Mean Corpuscular HGB Conc 30.7 g/dL (31.6-35.5); Mean Corpuscular Hemoglobin 29.6 pg (28.0-33.3); Mean Corpuscular Volume 96.3 fL (83.0-100.0); Mean Platelet Volume 9.4 fL (9.4-12.4); Monocytes # 0.9 K/mcL (0.0-1.3); Monocytes % 3.9 %; Platelet Count 224 K/mcL (140-400); Red Blood Count 3.21 M/mcL (3.82-4.97); Red Cell Distribution Width 13.8 % (11.5-14.5); Segmented Neutrophils % 88.9 %; White Blood Count 22.4 K/mcL (4.3-11.1)
[2019-12-05] MEDS: Pantoprazole 40 MG VIAL IVP SCH (10:32)
[2019-12-05 10:49] LABS: BUN/Creatinine Ratio 41 (6-26); Blood Urea Nitrogen 15 mg/dL (8-23); Calcium 8.5 mg/dL (8.6-10.3); Carbon Dioxide 32 mEq/L (23-29); Chloride 93 mEq/L (98-107); Glucose 112 mg/dL (70-105); Osmolality,Calculated 274 (280-300); Potassium 3.7 mEq/L (3.5-5.1); Sodium 131 mEq/L (136-145); eGFR For African Americans > 60 (> 60); eGFR For Non-African Americans > 60 (> 60)
[2019-12-05] MEDS: Acetylcysteine 10% 2 ML INHSOL IH SCH ×4 (11:05→23:16)
[2019-12-05] MEDS: CLEAR EYES NATURAL TEARS 15 ML BOTTLE BOTH EYES PRN (11:18)
[2019-12-05] MEDS: Cefepime HCl 2,000 MG in Water for inj. (sterile) 20 ML IVP SCH (16:02)
[2019-12-06] MEDS: Insulin LISPRO 300 UNITS/3 ML VIAL SQ SCH ×5 (00:20→23:29)
[2019-12-06] MEDS: methylPREDNISolone 125 MG/2 ML VIAL IVP SCH ×3 (00:20→18:05)
[2019-12-06] MEDS: Cefepime HCl 2,000 MG in Water for inj. (sterile) 20 ML IVP SCH ×4 (00:20→23:28)
[2019-12-06] MEDS: CLEAR EYES NATURAL TEARS 15 ML BOTTLE BOTH EYES SCH ×7 (00:20→23:28)
[2019-12-06] MEDS: FentaNYL (PF) 1,000 MCG in 0.9 % Sodium Chloride 80 ML IVC SCH ×2 (01:36→09:00)
[2019-12-06] MEDS: Acetylcysteine 10% 2 ML INHSOL IH SCH ×6 (03:48→23:04)
[2019-12-06] MEDS: Ipratropium/Albuterol Neb 3 ML IH SCH ×6 (03:48→23:04)
[2019-12-06 04:02] LABS: Hematocrit 33.3 % (35.3-44.9); Hemoglobin 10.1 g/dL (11.5-15.4); Mean Corpuscular HGB Conc 30.3 g/dL (31.6-35.5); Mean Corpuscular Hemoglobin 30.1 pg (28.0-33.3); Mean Corpuscular Volume 99.4 fL (83.0-100.0); Mean Platelet Volume 9.6 fL (9.4-12.4); Platelet Count 221 K/mcL (140-400); Red Blood Count 3.35 M/mcL (3.82-4.97); Red Cell Distribution Width 14.2 % (11.5-14.5); White Blood Count 24.1 K/mcL (4.3-11.1)
[2019-12-06 04:18] LABS: BUN/Creatinine Ratio 46 (6-26); Blood Urea Nitrogen 21 mg/dL (8-23); Calcium 9.2 mg/dL (8.6-10.3); Carbon Dioxide 32 mEq/L (23-29); Chloride 93 mEq/L (98-107); Glucose 171 mg/dL (70-105); Magnesium 1.8 mg/dL (1.6-2.6); Osmolality,Calculated 283 (280-300); Potassium 3.8 mEq/L (3.5-5.1); Sodium 133 mEq/L (136-145); eGFR For African Americans > 60 (> 60); eGFR For Non-African Americans > 60 (> 60)
[2019-12-06 04:27] LABS: ABG Base Excess 5 mEq/L (-2 to 3); ABG HCO3 35 mEq/L (21-27); ABG Oxygen Saturation 89 % (95-98); ABG PCO2 80 mmHg (35-45); ABG PH 7.25 pH Units (7.32-7.45); ABG PO2 70 mmHg (85-104); ABG TCO2 37 mEq/L (20-26); Blood Gas Modality ASSIST CONTROL; Blood Gas VT 370 cc
[2019-12-06 04:42] LABS: Phosphorous 3.1 mg/dL (2.7-4.5)
[2019-12-06 04:57] LABS: Lymphocytes # 1.5 K/mcL (0.6-4.6); Monocytes # 0.5 K/mcL (0.0-1.3); Neutrophils # 22.2 K/mcL (1.6-8.9); Platelet Estimate Normal (Normal)
[2019-12-06] MEDS: *HR* Heparin 5,000 UNIT/ML VIAL SQ SCH ×2 (05:09→17:15)
[2019-12-06] MEDS: Chlorhexidine Rinse 15 ML MOUTHWASH MM SCH ×2 (08:04→19:54)
[2019-12-06] MEDS: Thiamine (B-1) 100 MG TABLET PO SCH (08:05)
[2019-12-06] MEDS: Pantoprazole 40 MG VIAL IVP SCH (08:05)
[2019-12-06] MEDS: Azithromycin 500 MG in 0.9 % Sodium Chloride 250 ML IVPB SCH (08:06)
[2019-12-06] MEDS: Nystatin Cream 15 GM TUBE TP SCH ×2 (08:09→19:54)
[2019-12-06] MEDS: Dexmedetomidine HCl 400 MCG/100 ML MLS IVC SCH ×2 (08:21→21:29)
[2019-12-06 12:10] LABS: BUN/Creatinine Ratio 50 (6-26); Blood Urea Nitrogen 21 mg/dL (8-23); Calcium 8.6 mg/dL (8.6-10.3); Carbon Dioxide 29 mEq/L (23-29); Chloride 97 mEq/L (98-107); Glucose 236 mg/dL (70-105); Osmolality,Calculated 277 (280-300); Potassium 4.5 mEq/L (3.5-5.1); Sodium 128 mEq/L (136-145); eGFR For African Americans > 60 (> 60); eGFR For Non-African Americans > 60 (> 60)
[2019-12-06 13:13] LABS: Magnesium 2.2 mg/dL (1.6-2.6)
[2019-12-06] MEDS: *HR* Midazolam HCl 2 MG/2 ML VIAL IVP PRN ×2 (14:53→21:51)
[2019-12-07] MEDS: Ipratropium/Albuterol Neb 3 ML IH SCH ×5 (03:21→20:24)
[2019-12-07] MEDS: Acetylcysteine 10% 2 ML INHSOL IH SCH ×5 (03:21→20:24)
[2019-12-07] MEDS: CLEAR EYES NATURAL TEARS 15 ML BOTTLE BOTH EYES SCH ×2 (03:52→08:13)
[2019-12-07 04:06] LABS: Mean Corpuscular HGB Conc 30.5 g/dL (31.6-35.5)
[2019-12-07 04:08] LABS: Hematocrit 30.8 % (35.3-44.9); Hemoglobin 9.4 g/dL (11.5-15.4); Mean Corpuscular Hemoglobin 29.7 pg (28.0-33.3); Mean Corpuscular Volume 97.5 fL (83.0-100.0); Mean Platelet Volume 8.6 fL (9.4-12.4); Platelet Count 181 K/mcL (140-400); Red Blood Count 3.16 M/mcL (3.82-4.97); White Blood Count 25.6 K/mcL (4.3-11.1)
[2019-12-07 04:24] LABS: BUN/Creatinine Ratio 59 (6-26); Blood Urea Nitrogen 19 mg/dL (8-23); Calcium 8.8 mg/dL (8.6-10.3); Carbon Dioxide 33 mEq/L (23-29); Chloride 98 mEq/L (98-107); Glucose 56 mg/dL (70-105); Magnesium 1.9 mg/dL (1.6-2.6); Osmolality,Calculated 276 (280-300); Phosphorous 1.6 mg/dL (2.7-4.5); Potassium 4.2 mEq/L (3.5-5.1); Sodium 133 mEq/L (136-145); eGFR For African Americans > 60 (> 60); eGFR For Non-African Americans > 60 (> 60)
[2019-12-07] MEDS: *HR* Heparin 5,000 UNIT/ML VIAL SQ SCH ×2 (04:55→17:27)
[2019-12-07] MEDS: methylPREDNISolone 125 MG/2 ML VIAL IVP SCH (04:55)
[2019-12-07] MEDS: Insulin LISPRO 300 UNITS/3 ML VIAL SQ SCH ×3 (05:22→17:25)
[2019-12-07] MEDS: Pantoprazole 40 MG VIAL IVP SCH (08:12)
[2019-12-07] MEDS: Chlorhexidine Rinse 15 ML MOUTHWASH MM SCH (08:12)
[2019-12-07] MEDS: Cefepime HCl 2,000 MG in Water for inj. (sterile) 20 ML IVP SCH (08:12)
[2019-12-07] MEDS ORDERED: Thiamine (B-1) 100 MG TABLET PO SCH (09:00)
[2019-12-07] MEDS ORDERED: amLODIPine 5 MG TABLET PO SCH (09:00)
[2019-12-07] MEDS ORDERED: Vitamin B Complex/Vit C/Vit E 1 EACH TABLET PO SCH (09:00)
[2019-12-07] MEDS ORDERED: Naloxone 0.4 MG/ML INJ IVP PRN (09:24)
[2019-12-07] MEDS ORDERED: D5% in Water 1,000 ML IVC PRN (09:24)
[2019-12-07] MEDS ORDERED: *HR* Dextrose 50 % in Water (Syg) 50 ML SYRINGE IVP PRN (09:24)
[2019-12-07] MEDS ORDERED: Dextrose Gel 15 GM/37.5 ML TUBE PO PRN ×2 (09:24)
[2019-12-07 10:21] LABS: BUN/Creatinine Ratio 48 (6-26); Blood Urea Nitrogen 16 mg/dL (8-23); Calcium 8.9 mg/dL (8.6-10.3); Carbon Dioxide 33 mEq/L (23-29); Chloride 96 mEq/L (98-107); Glucose 93 mg/dL (70-105); Osmolality,Calculated 285 (280-300); Potassium 3.9 mEq/L (3.5-5.1); Sodium 137 mEq/L (136-145); eGFR For African Americans > 60 (> 60); eGFR For Non-African Americans > 60 (> 60)
[2019-12-07] MEDS ORDERED: *HR* LORazepam 2 MG/ML VIAL IVP PRN ×2 (10:40)
[2019-12-07] MEDS ORDERED: Cefepime HCl 2,000 MG in Water for inj. (sterile) 20 ML IVP SCH (16:00)
[2019-12-07] MEDS: cefTRIAXone 1,000 MG in Water for inj. (sterile) 10 ML IVP SCH (17:26)
[2019-12-07] MEDS ORDERED: Mirtazapine 15 MG TABLET PO SCH ×2 (21:00)
[2019-12-07] MEDS: Nystatin Cream 15 GM TUBE TP SCH (21:27)
[2019-12-08] MEDS: Acetylcysteine 10% 2 ML INHSOL IH SCH ×6 (00:20→20:18)
[2019-12-08] MEDS: Ipratropium/Albuterol Neb 3 ML IH SCH ×6 (00:20→20:18)
[2019-12-08] MEDS: Insulin LISPRO 300 UNITS/3 ML VIAL SQ SCH ×4 (00:50→17:20)
[2019-12-08 04:41] LABS: Hematocrit 36.6 % (35.3-44.9); Hemoglobin 11.2 g/dL (11.5-15.4); Mean Corpuscular HGB Conc 30.6 g/dL (31.6-35.5); Mean Corpuscular Hemoglobin 29.2 pg (28.0-33.3); Mean Corpuscular Volume 95.3 fL (83.0-100.0); Mean Platelet Volume 9.1 fL (9.4-12.4); Platelet Count 235 K/mcL (140-400); Red Blood Count 3.84 M/mcL (3.82-4.97); Red Cell Distribution Width 14.3 % (11.5-14.5); White Blood Count 29.4 K/mcL (4.3-11.1)
[2019-12-08 05:03] LABS: BUN/Creatinine Ratio 48 (6-26); Blood Urea Nitrogen 12 mg/dL (8-23); Calcium 8.6 mg/dL (8.6-10.3); Carbon Dioxide 37 mEq/L (23-29); Chloride 92 mEq/L (98-107); Glucose 71 mg/dL (70-105); Magnesium 1.7 mg/dL (1.6-2.6); Osmolality,Calculated 284 (280-300); Phosphorous 1.2 mg/dL (2.7-4.5); Potassium 2.9 mEq/L (3.5-5.1); Sodium 138 mEq/L (136-145); eGFR For African Americans > 60 (> 60); eGFR For Non-African Americans > 60 (> 60)
[2019-12-08] MEDS: *HR* Heparin 5,000 UNIT/ML VIAL SQ SCH ×2 (05:19→17:20)
[2019-12-08] MEDS ORDERED: Potassium Phosphate 44 MEQ in 0.9 % Sodium Chloride 250 ML IVPB ONE ×2 (07:08→22:04)
[2019-12-08] MEDS ORDERED: *HR* Midazolam HCl 2 MG/2 ML VIAL IVP ONE (08:22)
[2019-12-08] MEDS ORDERED: Furosemide 40 MG/4 ML VIAL IVP ONE (08:27)
[2019-12-08] MEDS ORDERED: Dexmedetomidine HCl 400 MCG/100 ML MLS IVC ONE (08:31)
[2019-12-08] MEDS: Dexmedetomidine HCl 400 MCG/100 ML MLS IVC SCH (08:35)
[2019-12-08 08:38] LABS: ABG Base Excess 10 mEq/L (-2 to 3); ABG HCO3 38 mEq/L (21-27); ABG Oxygen Saturation 94 % (95-98); ABG PCO2 63 mmHg (35-45); ABG PH 7.39 pH Units (7.32-7.45); ABG PO2 75 mmHg (85-104); ABG TCO2 40 mEq/L (20-26)
[2019-12-08] MEDS ORDERED: *HR* Metoprolol 5 MG/5 ML VIAL IVP ONE ×2 (08:41→08:43)
[2019-12-08] MEDS ORDERED: Morphine Sulfate 2 MG/ML SYRINGE IVP ONE (08:42)
[2019-12-08] MEDS ORDERED: amLODIPine 5 MG TABLET PO SCH (09:00)
[2019-12-08] MEDS ORDERED: MethylPREDNISolone 40 MG/ML VIAL IVP SCH ×2 (09:00)
[2019-12-08] MEDS ORDERED: Pantoprazole 40 MG VIAL IVP SCH (09:00)
[2019-12-08] MEDS ORDERED: Thiamine (B-1) 100 MG TABLET PO SCH (09:00)
[2019-12-08] MEDS ORDERED: Vitamin B Complex/Vit C/Vit E 1 EACH TABLET PO SCH (09:00)
[2019-12-08] MEDS: Nystatin Cream 15 GM TUBE TP SCH ×2 (10:47→21:45)
[2019-12-08] MEDS: cefTRIAXone 1,000 MG in Water for inj. (sterile) 10 ML IVP SCH (17:21)
[2019-12-08 20:44] LABS: BUN/Creatinine Ratio 40 (6-26); Blood Urea Nitrogen 14 mg/dL (8-23); Calcium 8.4 mg/dL (8.6-10.3); Carbon Dioxide 32 mEq/L (23-29); Chloride 91 mEq/L (98-107); Glucose 99 mg/dL (70-105); Osmolality,Calculated 291 (280-300); Potassium 4.1 mEq/L (3.5-5.1); Sodium 140 mEq/L (136-145); eGFR For African Americans > 60 (> 60); eGFR For Non-African Americans > 60 (> 60)
[2019-12-09] MEDS: Ipratropium/Albuterol Neb 3 ML IH SCH ×7 (00:06→23:23)
[2019-12-09] MEDS: Acetylcysteine 10% 2 ML INHSOL IH SCH ×3 (00:06→08:00)
[2019-12-09] MEDS: Insulin LISPRO 300 UNITS/3 ML VIAL SQ SCH ×4 (01:10→17:41)
[2019-12-09 01:25] LABS: BUN/Creatinine Ratio 39 (6-26); Blood Urea Nitrogen 12 mg/dL (8-23); Calcium 8.3 mg/dL (8.6-10.3); Carbon Dioxide 31 mEq/L (23-29); Chloride 94 mEq/L (98-107); Glucose 77 mg/dL (70-105); Magnesium 1.6 mg/dL (1.6-2.6); Osmolality,Calculated 289 (280-300); Phosphorous 3.5 mg/dL (2.7-4.5); Potassium 4.2 mEq/L (3.5-5.1); Sodium 140 mEq/L (136-145); eGFR For African Americans > 60 (> 60); eGFR For Non-African Americans > 60 (> 60)
[2019-12-09 04:36] LABS: ABG Base Excess 11 mEq/L (-2 to 3); ABG HCO3 35 mEq/L (21-27); ABG Oxygen Saturation 98 % (95-98); ABG PCO2 43 mmHg (35-45); ABG PH 7.52 pH Units (7.32-7.45); ABG PO2 101 mmHg (85-104); ABG TCO2 36 mEq/L (20-26); Blood Gas Modality BiLevel
[2019-12-09 05:13] LABS: Mean Platelet Volume 9.1 fL (9.4-12.4)
[2019-12-09 05:16] LABS: Hematocrit 32.7 % (35.3-44.9); Hemoglobin 10.1 g/dL (11.5-15.4); Mean Corpuscular HGB Conc 30.9 g/dL (31.6-35.5); Mean Corpuscular Hemoglobin 29.5 pg (28.0-33.3); Mean Corpuscular Volume 95.6 fL (83.0-100.0); Mean Platelet Volume 10.6 fL (9.4-12.4); Platelet Count 122 K/mcL (140-400); Red Blood Count 3.42 M/mcL (3.82-4.97); Red Cell Distribution Width 14.6 % (11.5-14.5); White Blood Count 20.2 K/mcL (4.3-11.1)
[2019-12-09] MEDS: *HR* Heparin 5,000 UNIT/ML VIAL SQ SCH ×2 (06:17→17:41)
[2019-12-09] MEDS: MethylPREDNISolone 40 MG/ML VIAL IVP SCH ×3 (09:15→20:10)
[2019-12-09] MEDS: Pantoprazole 40 MG VIAL IVP SCH (09:15)
[2019-12-09] MEDS: *HR* Metoprolol 5 MG/5 ML VIAL IVP SCH ×3 (09:16→17:33)
[2019-12-09] MEDS: Nystatin Cream 15 GM TUBE TP SCH ×2 (09:16→20:10)
[2019-12-09] MEDS: Dexmedetomidine HCl 400 MCG/100 ML MLS IVC SCH ×3 (09:19→21:19)
[2019-12-09] MEDS: cefTRIAXone 1,000 MG in Water for inj. (sterile) 10 ML IVP SCH (17:32)
[2019-12-10] MEDS: Insulin LISPRO 300 UNITS/3 ML VIAL SQ SCH ×4 (00:13→16:59)
[2019-12-10] MEDS: *HR* Metoprolol 5 MG/5 ML VIAL IVP SCH ×4 (00:38→16:58)
[2019-12-10] MEDS: Ipratropium/Albuterol Neb 3 ML IH SCH ×6 (03:55→23:34)
[2019-12-10] MEDS: *HR* Heparin 5,000 UNIT/ML VIAL SQ SCH ×2 (05:11→17:04)
[2019-12-10] MEDS ORDERED: *HR* Labetalol 20 MG/4 ML SYRINGE IVP ONE (07:59)
[2019-12-10] MEDS: Pantoprazole 40 MG VIAL IVP SCH (08:57)
[2019-12-10] MEDS: MethylPREDNISolone 40 MG/ML VIAL IVP SCH ×3 (08:57→20:38)
[2019-12-10] MEDS: Nystatin Cream 15 GM TUBE TP SCH ×2 (08:58→20:39)
[2019-12-10] MEDS: cefTRIAXone 1,000 MG in Water for inj. (sterile) 10 ML IVP SCH (16:58)
[2019-12-10] MEDS: amLODIPine 5 MG TABLET PO SCH (18:17)
[2019-12-10] MEDS: Mirtazapine 15 MG TABLET PO SCH (20:38)
[2019-12-10] MEDS: *HR* LORazepam 2 MG/ML VIAL IVP PRN (22:11)
[2019-12-11] MEDS: Insulin LISPRO 300 UNITS/3 ML VIAL SQ SCH ×4 (00:09→17:49)
[2019-12-11] MEDS: *HR* Metoprolol 5 MG/5 ML VIAL IVP SCH ×2 (00:12→06:02)
[2019-12-11] MEDS: *HR* LORazepam 2 MG/ML VIAL IVP PRN (01:51)
[2019-12-11] MEDS: Ipratropium/Albuterol Neb 3 ML IH SCH ×6 (04:13→23:40)
[2019-12-11] MEDS: *HR* Heparin 5,000 UNIT/ML VIAL SQ SCH ×2 (06:02→17:35)
[2019-12-11 06:39] LABS: eGFR For African Americans > 60 (> 60); eGFR For Non-African Americans > 60 (> 60)
[2019-12-11] MEDS ORDERED: *HR* Metoprolol 5 MG/5 ML VIAL IVP PRN (07:58)
[2019-12-11] MEDS: Pantoprazole 40 MG VIAL IVP SCH (08:44)
[2019-12-11] MEDS: MethylPREDNISolone 40 MG/ML VIAL IVP SCH ×3 (08:44→20:09)
[2019-12-11] MEDS: Nystatin Cream 15 GM TUBE TP SCH (08:45)
[2019-12-11] MEDS: amLODIPine 5 MG TABLET PO SCH (08:45)
[2019-12-11] MEDS ORDERED: Metoprolol XL (24 HR) Succ 50 MG TAB.ER.24H PO SCH (09:00)
[2019-12-11] MEDS ORDERED: amLODIPine 5 MG TABLET PO SCH (09:00)
[2019-12-11 09:12] LABS: Basophils % 0.2 %; Hematocrit 34.6 % (35.3-44.9); Hemoglobin 10.6 g/dL (11.5-15.4); Immature Granulocytes % 3.4 % (0-4); Mean Corpuscular HGB Conc 30.6 g/dL (31.6-35.5); Mean Corpuscular Hemoglobin 29.4 pg (28.0-33.3); Mean Corpuscular Volume 96.1 fL (83.0-100.0); Mean Platelet Volume 9.4 fL (9.4-12.4); Monocytes # 1.3 K/mcL (0.0-1.3); Monocytes % 6.7 %; Platelet Count 251 K/mcL (140-400); Red Cell Distribution Width 14.2 % (11.5-14.5); Segmented Neutrophils % 84.7 %; White Blood Count 18.9 K/mcL (4.3-11.1)
[2019-12-11 09:31] LABS: BUN/Creatinine Ratio 31 (6-26); Blood Urea Nitrogen 11 mg/dL (8-23); Carbon Dioxide 39 mEq/L (23-29); Chloride 91 mEq/L (98-107); Glucose 125 mg/dL (70-105); Osmolality,Calculated 285 (280-300); Potassium 3.2 mEq/L (3.5-5.1); Sodium 137 mEq/L (136-145); eGFR For African Americans > 60 (> 60); eGFR For Non-African Americans > 60 (> 60)
[2019-12-11] MEDS: Folic Acid 1 MG TABLET PO SCH (10:43)
[2019-12-11] MEDS: Thiamine (B-1) 100 MG TABLET PO SCH (10:43)
[2019-12-11 11:40] LABS: Troponin I < 0.03 ng/mL (< 0.04)
[2019-12-11 11:53] LABS: Thyroid Stimulating Hormone 0.691 mcIU/mL (0.340-5.600)
[2019-12-11] MEDS ORDERED: Metoprolol XL (24 HR) Succ 50 MG TAB.ER.24H PO ONE (12:23)
[2019-12-11] MEDS ORDERED: Potassium Chloride Elixir 20 MEQ/15 ML UDC PO SCH (12:30)
[2019-12-11] MEDS: cefTRIAXone 1,000 MG in Water for inj. (sterile) 10 ML IVP SCH (17:35)
[2019-12-11] MEDS: Mirtazapine 15 MG TABLET PO SCH (20:09)
[2019-12-11] MEDS: Metoprolol XL (24 HR) Succ 50 MG TAB.ER.24H PO SCH (20:09)
[2019-12-12] MEDS: Nystatin Cream 15 GM TUBE TP SCH ×3 (00:06→22:26)
[2019-12-12] MEDS: Insulin LISPRO 300 UNITS/3 ML VIAL SQ SCH ×2 (00:06→07:15)
[2019-12-12] MEDS: Ipratropium/Albuterol Neb 3 ML IH SCH ×6 (03:22→23:27)
[2019-12-12] MEDS ORDERED: Morphine Sulfate 2 MG/ML SYRINGE IVP ONE (03:44)
[2019-12-12 03:45] LABS: ABG Base Excess 15 mEq/L (-2 to 3); ABG HCO3 44 mEq/L (21-27); ABG Oxygen Saturation 96 % (95-98); ABG PCO2 78 mmHg (35-45); ABG PH 7.35 pH Units (7.32-7.45); ABG PO2 93 mmHg (85-104); ABG TCO2 46 mEq/L (20-26); Blood Gas Modality BiLevel; Blood Gas VT 450 cc
[2019-12-12] MEDS: *HR* Heparin 5,000 UNIT/ML VIAL SQ SCH ×2 (04:26→17:09)
[2019-12-12 06:19] LABS: BUN/Creatinine Ratio 34 (6-26); Blood Urea Nitrogen 12 mg/dL (8-23); Calcium 9.3 mg/dL (8.6-10.3); Carbon Dioxide 37 mEq/L (23-29); Chloride 97 mEq/L (98-107); Glucose 128 mg/dL (70-105); Magnesium 1.4 mg/dL (1.6-2.6); Osmolality,Calculated 291 (280-300); Phosphorous 2.1 mg/dL (2.7-4.5); Potassium 4.9 mEq/L (3.5-5.1); Sodium 140 mEq/L (136-145); eGFR For African Americans > 60 (> 60); eGFR For Non-African Americans > 60 (> 60)
[2019-12-12 07:00] LABS: Basophils # 0.1 K/mcL (0.0-0.2); Basophils % 0.3 %; Hematocrit 33.3 % (35.3-44.9); Hemoglobin 10.1 g/dL (11.5-15.4); Immature Granulocytes % 2.7 % (0-4); Lymphocytes # 0.7 K/mcL (0.6-4.6); Lymphocytes % 3.5 %; Mean Corpuscular HGB Conc 30.3 g/dL (31.6-35.5); Mean Corpuscular Hemoglobin 29.3 pg (28.0-33.3); Mean Corpuscular Volume 96.5 fL (83.0-100.0); Mean Platelet Volume 11.1 fL (9.4-12.4); Monocytes # 1.5 K/mcL (0.0-1.3); Monocytes % 7.1 %; Platelet Count 157 K/mcL (140-400); Red Blood Count 3.45 M/mcL (3.82-4.97); Red Cell Distribution Width 14.3 % (11.5-14.5); Segmented Neutrophils % 86.4 %; White Blood Count 20.9 K/mcL (4.3-11.1)
[2019-12-12] MEDS ORDERED: Furosemide 20 MG/2 ML VIAL IVP SCH (09:00)
[2019-12-12] MEDS ORDERED: hydroCHLOROthiazide 25 MG TABLET PO SCH (09:00)
[2019-12-12] MEDS: MethylPREDNISolone 40 MG/ML VIAL IVP SCH ×3 (09:00→20:25)
[2019-12-12] MEDS: Folic Acid 1 MG TABLET PO SCH (09:01)
[2019-12-12] MEDS: Thiamine (B-1) 100 MG TABLET PO SCH (09:02)
[2019-12-12] MEDS: Metoprolol XL (24 HR) Succ 50 MG TAB.ER.24H PO SCH ×2 (09:02→20:24)
[2019-12-12] MEDS: amLODIPine 5 MG TABLET PO SCH (09:02)
[2019-12-12 11:29] LABS: ABG Base Excess 16 mEq/L (-2 to 3); ABG HCO3 44 mEq/L (21-27); ABG Oxygen Saturation 94 % (95-98); ABG PCO2 74 mmHg (35-45); ABG PH 7.39 pH Units (7.32-7.45); ABG PO2 78 mmHg (85-104); ABG TCO2 47 mEq/L (20-26); Blood Gas Modality AVAPS; Blood Gas VT 450 cc
[2019-12-12] MEDS ORDERED: *HR* Metoprolol 5 MG/5 ML VIAL IVP PRN (12:17)
[2019-12-12] MEDS ORDERED: *HR* LORazepam 2 MG/ML VIAL IVP PRN ×3 (12:17)
[2019-12-12] MEDS ORDERED: Naloxone 0.4 MG/ML INJ IVP PRN (12:17)
[2019-12-12] MEDS ORDERED: *HR* Dextrose 50 % in Water (Syg) 50 ML SYRINGE IVP PRN (12:17)
[2019-12-12] MEDS ORDERED: D5% in Water 1,000 ML IVC PRN (12:17)
[2019-12-12] MEDS ORDERED: Dextrose Gel 15 GM/37.5 ML TUBE PO PRN ×2 (12:17)
[2019-12-12] MEDS ORDERED: cefTRIAXone 1,000 MG in Water for inj. (sterile) 10 ML IVP SCH (18:00)
[2019-12-12] MEDS ORDERED: Insulin LISPRO 300 UNITS/3 ML VIAL SQ SCH (18:00)
[2019-12-12] MEDS: Furosemide 20 MG/2 ML VIAL IVP SCH (20:24)
[2019-12-12] MEDS ORDERED: Mirtazapine 15 MG TABLET PO SCH (21:00)
[2019-12-13] MEDS ORDERED: *HR* Labetalol 20 MG/4 ML SYRINGE IVP ONE (03:24)
[2019-12-13] MEDS: Ipratropium/Albuterol Neb 3 ML IH SCH ×5 (03:30→19:40)
[2019-12-13 05:37] LABS: Hematocrit 33.6 % (35.3-44.9); Hemoglobin 10.4 g/dL (11.5-15.4); Mean Corpuscular Hemoglobin 29.7 pg (28.0-33.3); Mean Platelet Volume 9.4 fL (9.4-12.4); Platelet Count 214 K/mcL (140-400); Red Cell Distribution Width 14.2 % (11.5-14.5); Segmented Neutrophils % 88.3 %; White Blood Count 19.4 K/mcL (4.3-11.1)
[2019-12-13 05:38] LABS: Basophils % 0.2 %; Immature Granulocytes % 2.4 % (0-4); Lymphocytes # 0.6 K/mcL (0.6-4.6); Lymphocytes % 3.3 %; Monocytes # 1.1 K/mcL (0.0-1.3); Monocytes % 5.8 %; Neutrophils # 17.1 K/mcL (1.6-8.9)
[2019-12-13 06:02] LABS: BUN/Creatinine Ratio 37 (6-26); Blood Urea Nitrogen 14 mg/dL (8-23); Calcium 9.3 mg/dL (8.6-10.3); Carbon Dioxide > 45 mEq/L (23-29); Chloride 85 mEq/L (98-107); Glucose 145 mg/dL (70-105); Magnesium 1.5 mg/dL (1.6-2.6); Osmolality,Calculated 289 (280-300); Potassium 3.1 mEq/L (3.5-5.1); Sodium 138 mEq/L (136-145); eGFR For African Americans > 60 (> 60); eGFR For Non-African Americans > 60 (> 60)
[2019-12-13] MEDS ORDERED: Potassium Phosphate 44 MEQ in 0.9 % Sodium Chloride 250 ML IVPB PRN (06:08)
[2019-12-13] MEDS ORDERED: Calcium Gluconate 1gm/50mL 1 GM/50 ML BAG IVPB PRN (06:08)
[2019-12-13] MEDS: *HR* Heparin 5,000 UNIT/ML VIAL SQ SCH ×2 (06:23→17:57)
[2019-12-13] MEDS: Furosemide 20 MG/2 ML VIAL IVP SCH ×2 (07:41→20:19)
[2019-12-13] MEDS: MethylPREDNISolone 40 MG/ML VIAL IVP SCH (07:41)
[2019-12-13] MEDS: Metoprolol XL (24 HR) Succ 50 MG TAB.ER.24H PO SCH (07:42)
[2019-12-13] MEDS: Nystatin Cream 15 GM TUBE TP SCH ×2 (07:44→20:22)
[2019-12-13] MEDS ORDERED: Thiamine (B-1) 100 MG TABLET PO SCH (09:00)
[2019-12-13] MEDS ORDERED: hydroCHLOROthiazide 25 MG TABLET PO SCH (09:00)
[2019-12-13] MEDS ORDERED: amLODIPine 5 MG TABLET PO SCH (09:00)
[2019-12-13] MEDS ORDERED: Folic Acid 1 MG TABLET PO SCH (09:00)
[2019-12-13] MEDS: Insulin LISPRO 300 UNITS/3 ML VIAL SQ SCH (10:27)
[2019-12-13] MEDS ORDERED: Naloxone 0.4 MG/ML INJ IVP PRN (10:59)
[2019-12-13] MEDS ORDERED: *HR* Dextrose 50 % in Water (Syg) 50 ML SYRINGE IVP PRN (10:59)
[2019-12-13] MEDS ORDERED: Dextrose Gel 15 GM/37.5 ML TUBE PO PRN ×2 (10:59)
[2019-12-13] MEDS ORDERED: *HR* LORazepam 2 MG/ML VIAL IVP PRN ×3 (10:59)
[2019-12-13] MEDS ORDERED: D5% in Water 1,000 ML IVC PRN (10:59)
[2019-12-13] MEDS ORDERED: *HR* Metoprolol 5 MG/5 ML VIAL IVP PRN (10:59)
[2019-12-13] MEDS ORDERED: Potassium Chloride Elixir 20 MEQ/15 ML UDC PO ONE (11:16)
[2019-12-13] MEDS: predniSONE 20 MG TABLET PO SCH (11:35)
[2019-12-13] MEDS ORDERED: cefTRIAXone 1,000 MG in Water for inj. (sterile) 10 ML IVP SCH (18:00)
[2019-12-13] MEDS: Mirtazapine 15 MG TABLET PO SCH (20:19)
[2019-12-13] MEDS ORDERED: Metoprolol XL (24 HR) Succ 50 MG TAB.ER.24H PO SCH (21:00)
[2019-12-14] MEDS: Ipratropium/Albuterol Neb 3 ML IH SCH ×6 (00:02→20:18)
[2019-12-14 02:12] LABS: Basophils % 0.2 %; Hematocrit 32.5 % (35.3-44.9); Hemoglobin 9.9 g/dL (11.5-15.4); Immature Granulocytes % 2.9 % (0-4); Lymphocytes # 0.7 K/mcL (0.6-4.6); Lymphocytes % 3.1 %; Mean Corpuscular HGB Conc 30.5 g/dL (31.6-35.5); Mean Corpuscular Hemoglobin 29.4 pg (28.0-33.3); Mean Corpuscular Volume 96.4 fL (83.0-100.0); Mean Platelet Volume 9.8 fL (9.4-12.4); Neutrophils # 18.6 K/mcL (1.6-8.9); Platelet Count 219 K/mcL (140-400); Red Blood Count 3.37 M/mcL (3.82-4.97); Red Cell Distribution Width 14.2 % (11.5-14.5); Segmented Neutrophils % 88.8 %
[2019-12-14 02:34] LABS: BUN/Creatinine Ratio 37 (6-26); Blood Urea Nitrogen 16 mg/dL (8-23); Calcium 9.1 mg/dL (8.6-10.3); Carbon Dioxide > 45 mEq/L (23-29); Chloride 83 mEq/L (98-107); Glucose 188 mg/dL (70-105); Magnesium 1.6 mg/dL (1.6-2.6); Osmolality,Calculated 292 (280-300); Phosphorous 3.4 mg/dL (2.7-4.5); Potassium 3.2 mEq/L (3.5-5.1); Sodium 138 mEq/L (136-145); eGFR For African Americans > 60 (> 60); eGFR For Non-African Americans > 60 (> 60)
[2019-12-14 05:18] LABS: Basophils % 0.2 %; Hemoglobin 10.2 g/dL (11.5-15.4); Lymphocytes % 4.3 %; Mean Corpuscular HGB Conc 30.4 g/dL (31.6-35.5); Monocytes % 5.8 %; Red Cell Distribution Width 14.3 % (11.5-14.5)
[2019-12-14 05:20] LABS: Hematocrit 33.6 % (35.3-44.9); Immature Granulocytes % 2.4 % (0-4); Immature Platelets 14.4 % (1.1-6.1); Lymphocytes # 0.9 K/mcL (0.6-4.6); Mean Corpuscular Hemoglobin 29.1 pg (28.0-33.3); Mean Corpuscular Volume 95.7 fL (83.0-100.0); Mean Platelet Volume 10.5 fL (9.4-12.4); Monocytes # 1.3 K/mcL (0.0-1.3); Platelet Count 149 K/mcL (140-400); Red Blood Count 3.51 M/mcL (3.82-4.97); Segmented Neutrophils % 87.3 %; White Blood Count 21.8 K/mcL (4.3-11.1)
[2019-12-14] MEDS: *HR* Heparin 5,000 UNIT/ML VIAL SQ SCH ×2 (05:36→17:22)
[2019-12-14 05:41] LABS: Platelet Estimate Decreased (Normal)
[2019-12-14 05:45] LABS: BUN/Creatinine Ratio 38 (6-26); Blood Urea Nitrogen 15 mg/dL (8-23); Calcium 9.3 mg/dL (8.6-10.3); Carbon Dioxide > 45 mEq/L (23-29); Chloride 84 mEq/L (98-107); Glucose 110 mg/dL (70-105); Osmolality,Calculated 287 (280-300); Potassium 3.3 mEq/L (3.5-5.1); Sodium 138 mEq/L (136-145); eGFR For African Americans > 60 (> 60); eGFR For Non-African Americans > 60 (> 60)
[2019-12-14] MEDS ORDERED: Potassium Chloride Elixir 20 MEQ/15 ML UDC PO ONE (08:00)
[2019-12-14] MEDS ORDERED: Aminoglycoside Consult 1 EACH MC ONE (08:35)
[2019-12-14] MEDS: Furosemide 20 MG/2 ML VIAL IVP SCH ×2 (08:59→20:13)
[2019-12-14] MEDS: predniSONE 20 MG TABLET PO SCH (09:00)
[2019-12-14] MEDS: Thiamine (B-1) 100 MG TABLET PO SCH (09:00)
[2019-12-14] MEDS: amLODIPine 5 MG TABLET PO SCH (09:00)
[2019-12-14] MEDS: carvediloL 6.25 MG TABLET PO SCH ×2 (09:00→17:22)
[2019-12-14] MEDS ORDERED: hydroCHLOROthiazide 25 MG TABLET PO SCH (09:00)
[2019-12-14] MEDS: Folic Acid 1 MG TABLET PO SCH (09:00)
[2019-12-14] MEDS: Nystatin Cream 15 GM TUBE TP SCH ×2 (09:01→20:14)
[2019-12-14] MEDS: acetaZOLAMIDE 250 MG TABLET PO SCH (09:08)
[2019-12-14] MEDS: Piperacillin/Tazobactam 3.375 GM in 0.9 % Sodium Chloride Mini Bag 100 ML IVPB SCH (11:40)
[2019-12-14] MEDS: Mirtazapine 15 MG TABLET PO SCH (20:13)
[2019-12-15] MEDS: Ipratropium/Albuterol Neb 3 ML IH SCH ×7 (00:05→23:50)
[2019-12-15] MEDS: Piperacillin/Tazobactam 3.375 GM in 0.9 % Sodium Chloride Mini Bag 100 ML IVPB SCH ×4 (00:17→23:40)
[2019-12-15 04:20] LABS: Basophils # 0.1 K/mcL (0.0-0.2); Basophils % 0.3 %; Eosinophils % 0.1 %; Hematocrit 31.6 % (35.3-44.9); Hemoglobin 9.6 g/dL (11.5-15.4); Immature Granulocytes % 3.2 % (0-4); Lymphocytes # 1.4 K/mcL (0.6-4.6); Mean Corpuscular HGB Conc 30.4 g/dL (31.6-35.5); Mean Corpuscular Hemoglobin 29.7 pg (28.0-33.3); Mean Corpuscular Volume 97.8 fL (83.0-100.0); Mean Platelet Volume 9.9 fL (9.4-12.4); Monocytes # 0.8 K/mcL (0.0-1.3); Monocytes % 3.9 %; Neutrophils # 17.1 K/mcL (1.6-8.9); Platelet Count 219 K/mcL (140-400); Red Blood Count 3.23 M/mcL (3.82-4.97); Red Cell Distribution Width 14.3 % (11.5-14.5); Segmented Neutrophils % 85.5 %
[2019-12-15 04:27] LABS: VBG HCO3 44 mEq/L (21-27); VBG PCO2 71 mmHg (41-51); VBG PO2 125 mmHg (25-50)
[2019-12-15 04:43] LABS: BUN/Creatinine Ratio 38 (6-26); Blood Urea Nitrogen 18 mg/dL (8-23); Calcium 8.8 mg/dL (8.6-10.3); Carbon Dioxide 44 mEq/L (23-29); Chloride 91 mEq/L (98-107); Glucose 85 mg/dL (70-105); Magnesium 1.4 mg/dL (1.6-2.6); Osmolality,Calculated 291 (280-300); Phosphorous 2.8 mg/dL (2.7-4.5); Sodium 140 mEq/L (136-145); eGFR For African Americans > 60 (> 60); eGFR For Non-African Americans > 60 (> 60)
[2019-12-15] MEDS: *HR* Heparin 5,000 UNIT/ML VIAL SQ SCH ×2 (05:04→17:06)
[2019-12-15] MEDS ORDERED: Potassium Chloride Elixir 20 MEQ/15 ML UDC PO ONE ×2 (07:39→18:00)
[2019-12-15] MEDS: amLODIPine 5 MG TABLET PO SCH (10:30)
[2019-12-15] MEDS: acetaZOLAMIDE 250 MG TABLET PO SCH (10:30)
[2019-12-15] MEDS: carvediloL 6.25 MG TABLET PO SCH ×2 (10:31→16:19)
[2019-12-15] MEDS: Nystatin Cream 15 GM TUBE TP SCH ×2 (10:31→20:07)
[2019-12-15] MEDS: predniSONE 20 MG TABLET PO SCH (10:31)
[2019-12-15] MEDS: Folic Acid 1 MG TABLET PO SCH (10:31)
[2019-12-15] MEDS: Thiamine (B-1) 100 MG TABLET PO SCH (10:31)
[2019-12-15] MEDS: Furosemide 20 MG/2 ML VIAL IVP SCH ×2 (10:31→20:08)
[2019-12-15] MEDS: clonazePAM 0.5 MG TABLET PO PRN (13:37)
[2019-12-15] MEDS: Mirtazapine 15 MG TABLET PO SCH (20:08)
[2019-12-16 02:01] LABS: Hematocrit 31.3 % (35.3-44.9); Hemoglobin 9.2 g/dL (11.5-15.4); Mean Corpuscular HGB Conc 29.4 g/dL (31.6-35.5); Mean Corpuscular Hemoglobin 29.2 pg (28.0-33.3); Mean Corpuscular Volume 99.4 fL (83.0-100.0); Mean Platelet Volume 9.8 fL (9.4-12.4); Platelet Count 214 K/mcL (140-400); Red Blood Count 3.15 M/mcL (3.82-4.97); Red Cell Distribution Width 14.5 % (11.5-14.5); White Blood Count 21.3 K/mcL (4.3-11.1)
[2019-12-16 02:04] LABS: VBG HCO3 35 mEq/L (21-27); VBG PCO2 53 mmHg (41-51); VBG PH 7.42 pH Units (7.32-7.42); VBG PO2 122 mmHg (25-50)
[2019-12-16 02:28] LABS: BUN/Creatinine Ratio 33 (6-26); Blood Urea Nitrogen 19 mg/dL (8-23); Calcium 8.7 mg/dL (8.6-10.3); Carbon Dioxide 35 mEq/L (23-29); Chloride 95 mEq/L (98-107); Glucose 131 mg/dL (70-105); Osmolality,Calculated 282 (280-300); Potassium 4.1 mEq/L (3.5-5.1); Sodium 134 mEq/L (136-145); eGFR For African Americans > 60 (> 60); eGFR For Non-African Americans > 60 (> 60)
[2019-12-16] MEDS: Ipratropium/Albuterol Neb 3 ML IH SCH ×6 (04:15→23:31)
[2019-12-16] MEDS: *HR* Heparin 5,000 UNIT/ML VIAL SQ SCH ×2 (05:40→17:30)
[2019-12-16] MEDS: carvediloL 6.25 MG TABLET PO SCH ×2 (07:57→16:24)
[2019-12-16] MEDS: Thiamine (B-1) 100 MG TABLET PO SCH (07:57)
[2019-12-16] MEDS: predniSONE 20 MG TABLET PO SCH (07:57)
[2019-12-16] MEDS: Folic Acid 1 MG TABLET PO SCH (07:58)
[2019-12-16] MEDS: Piperacillin/Tazobactam 3.375 GM in 0.9 % Sodium Chloride Mini Bag 100 ML IVPB SCH ×3 (07:58→22:59)
[2019-12-16] MEDS: Furosemide 20 MG/2 ML VIAL IVP SCH (07:58)
[2019-12-16] MEDS: amLODIPine 5 MG TABLET PO SCH (07:58)
[2019-12-16] MEDS: Nystatin Cream 15 GM TUBE TP SCH ×2 (07:59→21:13)
[2019-12-16] MEDS: clonazePAM 0.5 MG TABLET PO PRN ×2 (10:03→20:33)
[2019-12-16] MEDS: Mirtazapine 15 MG TABLET PO SCH (20:33)
[2019-12-16] MEDS: Acetaminophen 325 MG TABLET PO PRN (22:58)
[2019-12-17] MEDS: Ipratropium/Albuterol Neb 3 ML IH SCH ×6 (03:30→23:34)
[2019-12-17] MEDS: *HR* Heparin 5,000 UNIT/ML VIAL SQ SCH ×2 (05:12→17:14)
[2019-12-17 05:48] LABS: Basophils % 0.2 %; Eosinophils % 0.1 %; Hematocrit 29.2 % (35.3-44.9); Hemoglobin 8.8 g/dL (11.5-15.4); Immature Granulocytes % 2.2 % (0-4); Lymphocytes # 1.1 K/mcL (0.6-4.6); Lymphocytes % 7.2 %; Mean Corpuscular HGB Conc 30.1 g/dL (31.6-35.5); Mean Corpuscular Hemoglobin 29.7 pg (28.0-33.3); Mean Corpuscular Volume 98.6 fL (83.0-100.0); Mean Platelet Volume 10.2 fL (9.4-12.4); Monocytes # 0.7 K/mcL (0.0-1.3); Monocytes % 4.7 %; Neutrophils # 12.7 K/mcL (1.6-8.9); Platelet Count 211 K/mcL (140-400); Red Blood Count 2.96 M/mcL (3.82-4.97); Red Cell Distribution Width 14.4 % (11.5-14.5); Segmented Neutrophils % 85.6 %; White Blood Count 14.8 K/mcL (4.3-11.1)
[2019-12-17 06:09] LABS: BUN/Creatinine Ratio 31 (6-26); Blood Urea Nitrogen 15 mg/dL (8-23); Calcium 8.9 mg/dL (8.6-10.3); Carbon Dioxide 36 mEq/L (23-29); Chloride 94 mEq/L (98-107); Glucose 87 mg/dL (70-105); Osmolality,Calculated 284 (280-300); Potassium 3.5 mEq/L (3.5-5.1); Sodium 137 mEq/L (136-145); eGFR For African Americans > 60 (> 60); eGFR For Non-African Americans > 60 (> 60)
[2019-12-17] MEDS: carvediloL 6.25 MG TABLET PO SCH ×2 (08:46→15:55)
[2019-12-17] MEDS: Folic Acid 1 MG TABLET PO SCH (08:46)
[2019-12-17] MEDS: amLODIPine 5 MG TABLET PO SCH (08:46)
[2019-12-17] MEDS: Thiamine (B-1) 100 MG TABLET PO SCH (08:46)
[2019-12-17] MEDS: predniSONE 20 MG TABLET PO SCH (08:46)
[2019-12-17] MEDS: Furosemide 20 MG TABLET PO SCH (08:47)
[2019-12-17] MEDS: Piperacillin/Tazobactam 3.375 GM in 0.9 % Sodium Chloride Mini Bag 100 ML IVPB SCH ×2 (08:47→15:55)
[2019-12-17] MEDS: Nystatin Cream 15 GM TUBE TP SCH ×2 (08:48→21:55)
[2019-12-17] MEDS: Acetaminophen 325 MG TABLET PO PRN (14:42)
[2019-12-17] MEDS: clonazePAM 0.5 MG TABLET PO PRN (14:42)
[2019-12-17] MEDS: Mirtazapine 15 MG TABLET PO SCH (21:40)
[2019-12-18] MEDS: Piperacillin/Tazobactam 3.375 GM in 0.9 % Sodium Chloride Mini Bag 100 ML IVPB SCH ×3 (00:12→17:31)
[2019-12-18] MEDS: Ipratropium/Albuterol Neb 3 ML IH SCH ×6 (03:26→23:39)
[2019-12-18] MEDS: *HR* Heparin 5,000 UNIT/ML VIAL SQ SCH ×2 (03:50→17:32)
[2019-12-18 04:05] LABS: Basophils % 0.1 %; Eosinophils % 0.1 %; Hematocrit 28.3 % (35.3-44.9); Hemoglobin 8.4 g/dL (11.5-15.4); Immature Granulocytes % 1.9 % (0-4); Lymphocytes # 0.9 K/mcL (0.6-4.6); Lymphocytes % 6.5 %; Mean Corpuscular HGB Conc 29.7 g/dL (31.6-35.5); Mean Corpuscular Hemoglobin 29.4 pg (28.0-33.3); Mean Platelet Volume 9.7 fL (9.4-12.4); Monocytes # 0.8 K/mcL (0.0-1.3); Monocytes % 5.6 %; Neutrophils # 11.5 K/mcL (1.6-8.9); Platelet Count 241 K/mcL (140-400); Red Blood Count 2.86 M/mcL (3.82-4.97); Red Cell Distribution Width 14.1 % (11.5-14.5); Segmented Neutrophils % 85.8 %; White Blood Count 13.5 K/mcL (4.3-11.1)
[2019-12-18 04:26] LABS: BUN/Creatinine Ratio 31 (6-26); Blood Urea Nitrogen 15 mg/dL (8-23); Calcium 8.6 mg/dL (8.6-10.3); Carbon Dioxide 39 mEq/L (23-29); Chloride 94 mEq/L (98-107); Glucose 145 mg/dL (70-105); Osmolality,Calculated 289 (280-300); Potassium 3.2 mEq/L (3.5-5.1); Sodium 138 mEq/L (136-145); eGFR For African Americans > 60 (> 60); eGFR For Non-African Americans > 60 (> 60)
[2019-12-18] MEDS ORDERED: Potassium Chloride Elixir 20 MEQ/15 ML UDC PO ONE (07:27)
[2019-12-18] MEDS: amLODIPine 5 MG TABLET PO SCH (07:55)
[2019-12-18] MEDS: Folic Acid 1 MG TABLET PO SCH (07:55)
[2019-12-18] MEDS: Thiamine (B-1) 100 MG TABLET PO SCH (07:55)
[2019-12-18] MEDS: carvediloL 6.25 MG TABLET PO SCH ×2 (07:55→17:32)
[2019-12-18] MEDS: predniSONE 20 MG TABLET PO SCH (07:55)
[2019-12-18] MEDS: Furosemide 20 MG TABLET PO SCH (07:55)
[2019-12-18] MEDS: Nystatin Cream 15 GM TUBE TP SCH ×2 (07:56→22:39)
[2019-12-18] MEDS ORDERED: FLU Vac QV 19-20 (6Month+)/PF 0.5 ML SYRINGE IM ONE (11:42)
[2019-12-18] MEDS: clonazePAM 0.5 MG TABLET PO PRN (17:43)
[2019-12-18] MEDS: Mirtazapine 15 MG TABLET PO SCH (22:39)
[2019-12-19] MEDS: Piperacillin/Tazobactam 3.375 GM in 0.9 % Sodium Chloride Mini Bag 100 ML IVPB SCH ×3 (00:53→16:05)
[2019-12-19] MEDS: Ipratropium/Albuterol Neb 3 ML IH SCH ×6 (03:37→23:08)
[2019-12-19] MEDS: *HR* Heparin 5,000 UNIT/ML VIAL SQ SCH ×2 (06:36→17:00)
[2019-12-19 07:02] LABS: Basophils % 0.1 %; Eosinophils # 0.1 K/mcL (0.0-0.6); Eosinophils % 0.6 %; Hematocrit 28.9 % (35.3-44.9); Hemoglobin 8.6 g/dL (11.5-15.4); Lymphocytes # 1.1 K/mcL (0.6-4.6); Lymphocytes % 8.8 %; Mean Corpuscular HGB Conc 29.8 g/dL (31.6-35.5); Mean Corpuscular Hemoglobin 29.2 pg (28.0-33.3); Monocytes # 0.8 K/mcL (0.0-1.3); Monocytes % 6.2 %; Neutrophils # 10.5 K/mcL (1.6-8.9); Platelet Count 252 K/mcL (140-400); Red Blood Count 2.95 M/mcL (3.82-4.97); Red Cell Distribution Width 14.4 % (11.5-14.5); Segmented Neutrophils % 82.3 %; White Blood Count 12.7 K/mcL (4.3-11.1)
[2019-12-19 07:30] LABS: BUN/Creatinine Ratio 27 (6-26); Blood Urea Nitrogen 12 mg/dL (8-23); Calcium 8.7 mg/dL (8.6-10.3); Carbon Dioxide 43 mEq/L (23-29); Chloride 93 mEq/L (98-107); Glucose 93 mg/dL (70-105); Osmolality,Calculated 287 (280-300); Potassium 3.3 mEq/L (3.5-5.1); Sodium 139 mEq/L (136-145); eGFR For African Americans > 60 (> 60); eGFR For Non-African Americans > 60 (> 60)
[2019-12-19] MEDS ORDERED: Potassium Chloride Elixir 20 MEQ/15 ML UDC PO ONE (07:33)
[2019-12-19] MEDS: carvediloL 6.25 MG TABLET PO SCH ×2 (09:00→16:05)
[2019-12-19] MEDS: Thiamine (B-1) 100 MG TABLET PO SCH (09:00)
[2019-12-19] MEDS: predniSONE 20 MG TABLET PO SCH (09:00)
[2019-12-19] MEDS: amLODIPine 5 MG TABLET PO SCH (09:01)
[2019-12-19] MEDS: Folic Acid 1 MG TABLET PO SCH (09:01)
[2019-12-19] MEDS: Furosemide 20 MG TABLET PO SCH (09:01)
[2019-12-19] MEDS: Nystatin Cream 15 GM TUBE TP SCH ×2 (09:02→20:34)
[2019-12-19] MEDS: clonazePAM 0.5 MG TABLET PO PRN ×2 (10:02→20:34)
[2019-12-19] MEDS: Mirtazapine 15 MG TABLET PO SCH (20:33)
[2019-12-20] MEDS: Piperacillin/Tazobactam 3.375 GM in 0.9 % Sodium Chloride Mini Bag 100 ML IVPB SCH ×2 (01:35→08:11)
[2019-12-20] MEDS: Ipratropium/Albuterol Neb 3 ML IH SCH ×3 (03:16→11:06)
[2019-12-20] MEDS: *HR* Heparin 5,000 UNIT/ML VIAL SQ SCH (06:35)
[2019-12-20] MEDS: clonazePAM 0.5 MG TABLET PO PRN (06:39)
[2019-12-20 06:48] LABS: VBG HCO3 44 mEq/L (21-27); VBG PCO2 86 mmHg (41-51); VBG PH 7.32 pH Units (7.32-7.42); VBG PO2 66 mmHg (25-50)
[2019-12-20 07:07] LABS: BUN/Creatinine Ratio 27 (6-26); Blood Urea Nitrogen 15 mg/dL (8-23); Calcium 8.8 mg/dL (8.6-10.3); Carbon Dioxide 42 mEq/L (23-29); Chloride 92 mEq/L (98-107); Glucose 95 mg/dL (70-105); Osmolality,Calculated 289 (280-300); Potassium 3.6 mEq/L (3.5-5.1); Sodium 139 mEq/L (136-145); eGFR For African Americans > 60 (> 60); eGFR For Non-African Americans > 60 (> 60)
[2019-12-20] MEDS: predniSONE 20 MG TABLET PO SCH (08:10)
[2019-12-20] MEDS: Thiamine (B-1) 100 MG TABLET PO SCH (08:10)
[2019-12-20] MEDS: Folic Acid 1 MG TABLET PO SCH (08:10)
[2019-12-20] MEDS: Furosemide 20 MG TABLET PO SCH (08:10)
[2019-12-20] MEDS: carvediloL 6.25 MG TABLET PO SCH (08:10)
[2019-12-20] MEDS: amLODIPine 5 MG TABLET PO SCH (08:10)
[2019-12-20] MEDS: Nystatin Cream 15 GM TUBE TP SCH (08:13)
[2019-12-20] MEDS ORDERED: carvediloL 6.25 MG TABLET PO ONE (09:28)
[2019-12-20 12:27] VITALS: BP 129/73
[2019-12-20] MEDS ORDERED: carvediloL 25 MG TABLET PO SCH (17:00)
== END 2019-12-20 14:12 | DRG 870 ==
LOC: EMEROOARM 08:22 → SUATTDRO 12:47 → ICNU 12:47 → 2NNU 12-07 12:08 → 2NENU 12-08 20:51 → 3NENU 12-11 15:59 → ICNU 12-12 12:15 → 2ANU 12-13 11:10
PROVIDERS: ADMIT Internal Medicine Pulmonary Disease; ATTEND Internal Medicine

== ENCOUNTER 2019-12-28 14:45 | Inpatient (IN) ==
[2019-12-28 15:21] LABS: ABG Base Excess 20 mEq/L (-2 to 3); ABG HCO3 49 mEq/L (21-27); ABG Oxygen Saturation 87 % (95-98); ABG PCO2 80 mmHg (35-45); ABG PH 7.39 pH Units (7.32-7.45); ABG PO2 58 mmHg (85-104); ABG TCO2 > 50 mEq/L (20-26); Blood Gas Pressure Support 12 cm H2O
[2019-12-28 16:46] LABS: Basophils % 0.2 %; Eosinophils # 0.1 K/mcL (0.0-0.6); Eosinophils % 0.9 %; Hematocrit 27.6 % (35.3-44.9); Hemoglobin 8.7 g/dL (11.5-15.4); Immature Granulocytes % 1.9 % (0-4); Lymphocytes # 0.6 K/mcL (0.6-4.6); Lymphocytes % 6.3 %; Mean Corpuscular HGB Conc 31.5 g/dL (31.6-35.5); Mean Corpuscular Hemoglobin 29.8 pg (28.0-33.3); Mean Corpuscular Volume 94.5 fL (83.0-100.0); Mean Platelet Volume 9.5 fL (9.4-12.4); Monocytes # 0.5 K/mcL (0.0-1.3); Monocytes % 4.8 %; Neutrophils # 8.3 K/mcL (1.6-8.9); Platelet Count 234 K/mcL (140-400); Red Blood Count 2.92 M/mcL (3.82-4.97); Red Cell Distribution Width 15.7 % (11.5-14.5); Segmented Neutrophils % 85.9 %; White Blood Count 9.6 K/mcL (4.3-11.1)
[2019-12-28 17:16] LABS: Alanine Aminotransferase 17 Units/L (7-52); Albumin 3.3 g/dL (3.5-5.7); Albumin/Globulin Ratio 1.2 (1.1-2.2); Alkaline Phosphatase 102 Units/L (34-104); Aspartate Amino Transferase 18 Units/L (13-39); BUN/Creatinine Ratio 24 (6-26); Bilirubin,Total 0.5 mg/dL (0.3-1.0); Blood Urea Nitrogen 9 mg/dL (8-23); Calcium 8.7 mg/dL (8.6-10.3); Carbon Dioxide 43 mEq/L (23-29); Chloride 74 mEq/L (98-107); Globulin 2.8 g/dL (2.4-3.5); Glucose 117 mg/dL (70-105); Osmolality,Calculated 256 (280-300); Potassium 3.5 mEq/L (3.5-5.1); Sodium 123 mEq/L (136-145); Total Protein 6.1 g/dL (6.4-8.9); Troponin I < 0.03 ng/mL (< 0.04); eGFR For African Americans > 60 (> 60); eGFR For Non-African Americans > 60 (> 60)
[2019-12-28] MEDS ORDERED: Ondansetron 4 MG/2 ML VIAL IVP PRN (17:44)
[2019-12-28] MEDS ORDERED: Acetaminophen 325 MG TABLET PO PRN (17:44)
[2019-12-28] MEDS ORDERED: Naloxone 0.4 MG/ML INJ IVP PRN (17:44)
[2019-12-28] MEDS ORDERED: MethylPREDNISolone 40 MG/ML VIAL IVP SCH (18:00)
[2019-12-28] MEDS ORDERED: Doxycycline 100 MG in 0.9 % Sodium Chloride Mini Bag 100 ML IVPB SCH (18:00)
[2019-12-28] MEDS ORDERED: Dextrose Gel 15 GM/37.5 ML TUBE PO PRN ×2 (18:43)
[2019-12-28] MEDS ORDERED: *HR* Dextrose 50 % in Water (Syg) 50 ML SYRINGE IVP PRN (18:43)
[2019-12-28] MEDS ORDERED: D5% in Water 1,000 ML IVC PRN (18:43)
[2019-12-28] MEDS ORDERED: 0.9 % Sodium Chloride 500 ML IVC SCH (18:45)
[2019-12-28] MEDS ORDERED: Azithromycin 500 MG in 0.9 % Sodium Chloride 250 ML IVPB SCH (19:00)
[2019-12-28] MEDS ORDERED: Ipratropium/Albuterol Neb 3 ML IH SCH (20:00)
[2019-12-28] MEDS: *HR* Heparin 5,000 UNIT/ML VIAL SQ SCH (20:04)
[2019-12-28] MEDS: Mirtazapine 15 MG TABLET PO SCH (20:06)
[2019-12-28] MEDS: clonazePAM 0.5 MG TABLET PO PRN (20:06)
[2019-12-29] MEDS: Insulin LISPRO 300 UNITS/3 ML VIAL SQ SCH ×3 (02:11→14:44)
[2019-12-29 04:42] LABS: Basophils % 0.2 %; Hematocrit 28.6 % (35.3-44.9); Hemoglobin 9.2 g/dL (11.5-15.4); Immature Granulocytes % 1.2 % (0-4); Lymphocytes # 0.3 K/mcL (0.6-4.6); Lymphocytes % 2.5 %; Mean Corpuscular HGB Conc 32.2 g/dL (31.6-35.5); Mean Corpuscular Hemoglobin 29.9 pg (28.0-33.3); Mean Corpuscular Volume 92.9 fL (83.0-100.0); Mean Platelet Volume 9.9 fL (9.4-12.4); Monocytes # 0.1 K/mcL (0.0-1.3); Monocytes % 0.9 %; Neutrophils # 12.2 K/mcL (1.6-8.9); Platelet Count 234 K/mcL (140-400); Red Blood Count 3.08 M/mcL (3.82-4.97); Red Cell Distribution Width 15.6 % (11.5-14.5); Segmented Neutrophils % 95.2 %; White Blood Count 12.8 K/mcL (4.3-11.1)
[2019-12-29 04:52] LABS: Activated Partial Thrombo Time 29.2 Seconds (26.0-36.0)
[2019-12-29 04:59] LABS: Platelet Estimate Normal (Normal); Reactive Lymphocytes Present (Not Present)
[2019-12-29 05:07] LABS: BUN/Creatinine Ratio 22 (6-26); Blood Urea Nitrogen 8 mg/dL (8-23); Calcium 8.8 mg/dL (8.6-10.3); Carbon Dioxide 40 mEq/L (23-29); Chloride 77 mEq/L (98-107); Glucose 134 mg/dL (70-105); Magnesium 1.3 mg/dL (1.6-2.6); Osmolality,Calculated 260 (280-300); Phosphorous 3.2 mg/dL (2.7-4.5); Potassium 4.3 mEq/L (3.5-5.1); Sodium 125 mEq/L (136-145); eGFR For African Americans > 60 (> 60); eGFR For Non-African Americans > 60 (> 60)
[2019-12-29] MEDS: *HR* Heparin 5,000 UNIT/ML VIAL SQ SCH ×2 (05:36→17:15)
[2019-12-29 06:05] LABS: Bilirubin,Urine Negative (Negative); Blood,Urine Negative (Negative); Clarity,Urine Clear (Clear); Color,Urine Yellow (Yellow); Glucose,Urine (UA) Normal (Normal); Ketones,Urine 40 mg/dL (Negative); Leukocyte Esterase,Urine Negative (Negative); Nitrite,Urine Negative (Negative); PH,Urine 6.5 pH Units (5.0-8.0); Protein,Urine Negative (Neg-Trace); Specific Gravity,Urine 1.013 (1.010-1.025); Urobilinogen,Urine Normal (Normal)
[2019-12-29 09:06] LABS: Sodium, Urine 10.1 mEq/L
[2019-12-29] MEDS: Thiamine (B-1) 100 MG TABLET PO SCH (10:14)
[2019-12-29] MEDS: Folic Acid 1 MG TABLET PO SCH (10:14)
[2019-12-29] MEDS: Cholecalciferol (D-3) 1,000 UNIT (25MCG) TABLET PO SCH (10:14)
[2019-12-29] MEDS: carvediloL 6.25 MG TABLET PO SCH ×2 (10:14→17:15)
[2019-12-29] MEDS: Melatonin 3 MG TABLET PO SCH (10:14)
[2019-12-29] MEDS: 0.9 % Sodium Chloride 1,000 ML IVC SCH (10:49)
[2019-12-29] MEDS: Azithromycin 250 MG TABLET PO SCH (17:15)
[2019-12-29] MEDS: clonazePAM 0.5 MG TABLET PO PRN (20:39)
[2019-12-29] MEDS: Mirtazapine 15 MG TABLET PO SCH (20:40)
[2019-12-30 03:29] LABS: Basophils % 0.2 %; Eosinophils % 0.3 %; Hematocrit 24.3 % (35.3-44.9); Immature Granulocytes % 1.1 % (0-4); Lymphocytes # 0.6 K/mcL (0.6-4.6); Lymphocytes % 4.8 %; Mean Corpuscular HGB Conc 31.3 g/dL (31.6-35.5); Mean Corpuscular Hemoglobin 30.2 pg (28.0-33.3); Mean Corpuscular Volume 96.4 fL (83.0-100.0); Mean Platelet Volume 9.2 fL (9.4-12.4); Monocytes # 0.4 K/mcL (0.0-1.3); Monocytes % 3.2 %; Neutrophils # 11.4 K/mcL (1.6-8.9); Platelet Count 213 K/mcL (140-400); Red Blood Count 2.52 M/mcL (3.82-4.97); Segmented Neutrophils % 90.4 %; White Blood Count 12.6 K/mcL (4.3-11.1)
[2019-12-30 03:30] LABS: Hemoglobin 7.6 g/dL (11.5-15.4)
[2019-12-30 03:51] LABS: BUN/Creatinine Ratio 22 (6-26); Blood Urea Nitrogen 12 mg/dL (8-23); Calcium 8.3 mg/dL (8.6-10.3); Carbon Dioxide 42 mEq/L (23-29); Chloride 80 mEq/L (98-107); Glucose 141 mg/dL (70-105); Osmolality,Calculated 262 (280-300); Sodium 125 mEq/L (136-145); eGFR For African Americans > 60 (> 60); eGFR For Non-African Americans > 60 (> 60)
[2019-12-30] MEDS: *HR* Heparin 5,000 UNIT/ML VIAL SQ SCH (03:51)
[2019-12-30] MEDS: 0.9 % Sodium Chloride 1,000 ML IVC SCH ×2 (05:35→21:30)
[2019-12-30 07:24] LABS: Hemoglobin 7.2 g/dL (11.5-15.4)
[2019-12-30] MEDS: Thiamine (B-1) 100 MG TABLET PO SCH (08:21)
[2019-12-30] MEDS: Melatonin 3 MG TABLET PO SCH (08:22)
[2019-12-30] MEDS: carvediloL 6.25 MG TABLET PO SCH ×2 (08:22→18:14)
[2019-12-30] MEDS: Folic Acid 1 MG TABLET PO SCH (08:23)
[2019-12-30] MEDS: Cholecalciferol (D-3) 1,000 UNIT (25MCG) TABLET PO SCH (08:23)
[2019-12-30] MEDS: clonazePAM 0.5 MG TABLET PO PRN ×2 (11:17→21:27)
[2019-12-30] MEDS: Azithromycin 250 MG TABLET PO SCH (18:14)
[2019-12-30] MEDS ORDERED: Chloraseptic Spray 177 ML BOTTLE PO PRN (19:03)
[2019-12-30] MEDS: Mirtazapine 15 MG TABLET PO SCH (21:26)
[2019-12-30 22:39] LABS: Hematocrit 23.6 % (35.3-44.9); Hemoglobin 7.4 g/dL (11.5-15.4)
[2019-12-30] MEDS: Nystatin Cream 15 GM TUBE TP SCH (22:42)
[2019-12-31 02:44] LABS: Basophils % 0.2 %; Eosinophils # 0.1 K/mcL (0.0-0.6); Eosinophils % 1.1 %; Hematocrit 25.9 % (35.3-44.9); Hemoglobin 7.8 g/dL (11.5-15.4); Immature Granulocytes % 1.2 % (0-4); Lymphocytes # 0.7 K/mcL (0.6-4.6); Lymphocytes % 6.6 %; Mean Corpuscular HGB Conc 30.1 g/dL (31.6-35.5); Mean Corpuscular Hemoglobin 29.9 pg (28.0-33.3); Mean Corpuscular Volume 99.2 fL (83.0-100.0); Mean Platelet Volume 9.8 fL (9.4-12.4); Monocytes # 0.5 K/mcL (0.0-1.3); Monocytes % 4.5 %; Neutrophils # 9.5 K/mcL (1.6-8.9); Platelet Count 232 K/mcL (140-400); Red Blood Count 2.61 M/mcL (3.82-4.97); Red Cell Distribution Width 16.3 % (11.5-14.5); Segmented Neutrophils % 86.4 %
[2019-12-31 03:03] LABS: % Iron Saturation 25 % (15-50); Iron 66 mcg/dL (50-170); Transferrin 192 mg/dL (203-362)
[2019-12-31 03:06] LABS: BUN/Creatinine Ratio 14 (6-26); Blood Urea Nitrogen 10 mg/dL (8-23); Calcium 8.4 mg/dL (8.6-10.3); Carbon Dioxide 34 mEq/L (23-29); Chloride 88 mEq/L (98-107); Glucose 81 mg/dL (70-105); Osmolality,Calculated 260 (280-300); Potassium 4.2 mEq/L (3.5-5.1); Sodium 126 mEq/L (136-145); eGFR For African Americans > 60 (> 60); eGFR For Non-African Americans > 60 (> 60)
[2019-12-31 03:21] LABS: Ferritin 211 ng/mL (10-120)
[2019-12-31 03:34] LABS: Folate > 22.3 ng/mL (3.0-16.0); Vitamin B12 457 pg/mL (250-1100)
[2019-12-31] MEDS: carvediloL 6.25 MG TABLET PO SCH (08:45)
[2019-12-31] MEDS: Melatonin 3 MG TABLET PO SCH (08:45)
[2019-12-31] MEDS: Thiamine (B-1) 100 MG TABLET PO SCH (08:45)
[2019-12-31] MEDS: Folic Acid 1 MG TABLET PO SCH (08:45)
[2019-12-31] MEDS: Cholecalciferol (D-3) 1,000 UNIT (25MCG) TABLET PO SCH (08:45)
[2019-12-31] MEDS: clonazePAM 0.5 MG TABLET PO PRN (08:48)
[2019-12-31] MEDS ORDERED: amLODIPine 5 MG TABLET PO SCH (09:00)
[2019-12-31] MEDS: Nystatin Cream 15 GM TUBE TP SCH ×2 (09:10→21:33)
[2019-12-31] MEDS: 0.9 % Sodium Chloride 1,000 ML IVC SCH (11:04)
[2019-12-31 11:21] LABS: ABG Base Excess 8 mEq/L (-2 to 3); ABG HCO3 36 mEq/L (21-27); ABG Oxygen Saturation 95 % (95-98); ABG PCO2 79 mmHg (35-45); ABG PH 7.27 pH Units (7.32-7.45); ABG PO2 87 mmHg (85-104); ABG TCO2 38 mEq/L (20-26)
[2019-12-31 14:00] LABS: Hematocrit 29.6 % (35.3-44.9); Hemoglobin 8.7 g/dL (11.5-15.4)
[2019-12-31] MEDS: Budesonide/Formoterol 160/4.5 1 PUFF INH IH SCH ×2 (14:15→20:19)
[2019-12-31] MEDS: MethylPREDNISolone 40 MG/ML VIAL IVP SCH ×2 (14:45→21:33)
[2019-12-31] MEDS: Furosemide 20 MG/2 ML VIAL IVP SCH (14:45)
[2019-12-31 17:05] LABS: ABG Base Excess 7 mEq/L (-2 to 3); ABG HCO3 35 mEq/L (21-27); ABG Oxygen Saturation 90 % (95-98); ABG PCO2 72 mmHg (35-45); ABG PH 7.29 pH Units (7.32-7.45); ABG PO2 68 mmHg (85-104); ABG TCO2 37 mEq/L (20-26); Blood Gas Modality AVAPS; Blood Gas VT 500 cc
[2019-12-31] MEDS: Azithromycin 250 MG TABLET PO SCH (17:20)
[2019-12-31] MEDS ORDERED: Lactulose 200 GM, Sodium Chloride IRRigation 700 ML RC ONE (17:44)
[2019-12-31] MEDS: Pantoprazole 40 MG VIAL IVP SCH (17:45)
[2019-12-31 20:57] LABS: ABG Base Excess 8 mEq/L (-2 to 3); ABG HCO3 35 mEq/L (21-27); ABG Oxygen Saturation 96 % (95-98); ABG PCO2 70 mmHg (35-45); ABG PH 7.32 pH Units (7.32-7.45); ABG PO2 90 mmHg (85-104); ABG TCO2 38 mEq/L (20-26); Blood Gas Modality BiLevel; Blood Gas VT 500 cc
[2020-01-01 03:21] LABS: Basophils % 0.1 %; Hematocrit 26.7 % (35.3-44.9); Hemoglobin 8.4 g/dL (11.5-15.4); INR 0.9; Immature Granulocytes % 1.2 % (0-4); Lymphocytes # 0.4 K/mcL (0.6-4.6); Lymphocytes % 2.7 %; Mean Corpuscular HGB Conc 31.5 g/dL (31.6-35.5); Mean Corpuscular Hemoglobin 29.9 pg (28.0-33.3); Mean Platelet Volume 10.9 fL (9.4-12.4); Monocytes # 0.1 K/mcL (0.0-1.3); Monocytes % 0.8 %; Neutrophils # 12.2 K/mcL (1.6-8.9); Platelet Count 166 K/mcL (140-400); Red Blood Count 2.81 M/mcL (3.82-4.97); Red Cell Distribution Width 15.7 % (11.5-14.5); Segmented Neutrophils % 95.2 %; White Blood Count 12.8 K/mcL (4.3-11.1)
[2020-01-01 03:27] LABS: VBG HCO3 29 mEq/L (21-27); VBG PCO2 43 mmHg (41-51); VBG PH 7.44 pH Units (7.32-7.42); VBG PO2 136 mmHg (25-50)
[2020-01-01 03:30] LABS: BUN/Creatinine Ratio 16 (6-26); Blood Urea Nitrogen 15 mg/dL (8-23); Calcium 8.7 mg/dL (8.6-10.3); Carbon Dioxide 30 mEq/L (23-29); Chloride 93 mEq/L (98-107); Glucose 151 mg/dL (70-105); Magnesium 1.3 mg/dL (1.6-2.6); Osmolality,Calculated 274 (280-300); Potassium 4.9 mEq/L (3.5-5.1); Sodium 130 mEq/L (136-145); eGFR For African Americans > 60 (> 60); eGFR For Non-African Americans 59 (> 60)
[2020-01-01] MEDS: MethylPREDNISolone 40 MG/ML VIAL IVP SCH ×2 (05:57→16:38)
[2020-01-01] MEDS: Pantoprazole 40 MG VIAL IVP SCH ×2 (05:58→16:38)
[2020-01-01] MEDS: Budesonide/Formoterol 160/4.5 1 PUFF INH IH SCH ×2 (07:19→20:02)
[2020-01-01] MEDS: Nystatin Cream 15 GM TUBE TP SCH ×2 (08:44→20:37)
[2020-01-01] MEDS: Furosemide 20 MG/2 ML VIAL IVP SCH (08:44)
[2020-01-01] MEDS: Thiamine (B-1) 100 MG TABLET PO SCH (12:17)
[2020-01-01] MEDS: Cholecalciferol (D-3) 1,000 UNIT (25MCG) TABLET PO SCH (12:17)
[2020-01-01] MEDS: Melatonin 3 MG TABLET PO SCH (12:18)
[2020-01-01] MEDS: Azithromycin 250 MG TABLET PO SCH (12:18)
[2020-01-01] MEDS: Folic Acid 1 MG TABLET PO SCH (12:18)
[2020-01-01] MEDS: Lactulose Oral Soln 20 GM/30 ML UDC PO SCH ×2 (12:28→20:37)
[2020-01-02 02:21] LABS: Basophils % 0.1 %; Hematocrit 24.1 % (35.3-44.9); Hemoglobin 7.5 g/dL (11.5-15.4); Immature Granulocytes % 1.1 % (0-4); Lymphocytes # 0.4 K/mcL (0.6-4.6); Lymphocytes % 2.2 %; Mean Corpuscular HGB Conc 31.1 g/dL (31.6-35.5); Mean Corpuscular Hemoglobin 29.6 pg (28.0-33.3); Mean Corpuscular Volume 95.3 fL (83.0-100.0); Mean Platelet Volume 9.6 fL (9.4-12.4); Monocytes # 0.5 K/mcL (0.0-1.3); Monocytes % 2.9 %; Neutrophils # 17.2 K/mcL (1.6-8.9); Platelet Count 237 K/mcL (140-400); Red Blood Count 2.53 M/mcL (3.82-4.97); Segmented Neutrophils % 93.7 %; White Blood Count 18.4 K/mcL (4.3-11.1)
[2020-01-02 02:22] LABS: VBG HCO3 31 mEq/L (21-27); VBG PCO2 44 mmHg (41-51); VBG PH 7.46 pH Units (7.32-7.42); VBG PO2 115 mmHg (25-50)
[2020-01-02 02:40] LABS: Calcium 8.8 mg/dL (8.6-10.3); Potassium 4.1 mEq/L (3.5-5.1)
[2020-01-02] MEDS: Pantoprazole 40 MG VIAL IVP SCH ×2 (05:13→18:15)
[2020-01-02] MEDS: MethylPREDNISolone 40 MG/ML VIAL IVP SCH ×2 (05:13→18:15)
[2020-01-02] MEDS: Budesonide/Formoterol 160/4.5 1 PUFF INH IH SCH ×2 (07:54→20:28)
[2020-01-02] MEDS: Lactulose Oral Soln 20 GM/30 ML UDC PO SCH ×2 (09:56→21:04)
[2020-01-02] MEDS: Thiamine (B-1) 100 MG TABLET PO SCH (09:57)
[2020-01-02] MEDS: Cholecalciferol (D-3) 1,000 UNIT (25MCG) TABLET PO SCH (09:57)
[2020-01-02] MEDS: Furosemide 20 MG/2 ML VIAL IVP SCH (09:57)
[2020-01-02] MEDS: Folic Acid 1 MG TABLET PO SCH (09:57)
[2020-01-02] MEDS ORDERED: 0.9 % Sodium Chloride 250 ML IVC SCH (10:30)
[2020-01-02] MEDS: Nystatin Cream 15 GM TUBE TP SCH ×2 (10:30→21:21)
[2020-01-02] MEDS: Melatonin 3 MG TABLET PO SCH (11:19)
[2020-01-02 13:47] LABS: Hematocrit 28.8 % (35.3-44.9); Hemoglobin 8.9 g/dL (11.5-15.4)
[2020-01-02 16:38] LABS: Hematocrit 31.1 % (35.3-44.9)
[2020-01-02 16:45] LABS: Basophils % 0.1 %; Hematocrit 31.8 % (35.3-44.9); Hemoglobin 10.1 g/dL (11.5-15.4); Immature Granulocytes % 0.8 % (0-4); Lymphocytes # 0.5 K/mcL (0.6-4.6); Mean Corpuscular HGB Conc 31.8 g/dL (31.6-35.5); Mean Corpuscular Hemoglobin 30.2 pg (28.0-33.3); Mean Corpuscular Volume 95.2 fL (83.0-100.0); Mean Platelet Volume 9.3 fL (9.4-12.4); Monocytes # 0.8 K/mcL (0.0-1.3); Monocytes % 3.5 %; Neutrophils # 21.2 K/mcL (1.6-8.9); Platelet Count 275 K/mcL (140-400); Red Blood Count 3.34 M/mcL (3.82-4.97); Red Cell Distribution Width 15.5 % (11.5-14.5); Segmented Neutrophils % 93.6 %; White Blood Count 22.6 K/mcL (4.3-11.1)
[2020-01-02 16:50] LABS: BUN/Creatinine Ratio 19 (6-26); Blood Urea Nitrogen 19 mg/dL (8-23); Carbon Dioxide 29 mEq/L (23-29); Chloride 93 mEq/L (98-107); Glucose 178 mg/dL (70-105); Osmolality,Calculated 283 (280-300); Potassium 3.6 mEq/L (3.5-5.1); Sodium 133 mEq/L (136-145); eGFR For African Americans > 60 (> 60); eGFR For Non-African Americans 56 (> 60)
[2020-01-02 17:00] LABS: Toxic Granulation Present (Not Present)
[2020-01-02 17:01] LABS: Hypersegmented Neutrophils Present (Not Present); Platelet Estimate Normal (Normal)
[2020-01-02] MEDS: Azithromycin 250 MG TABLET PO SCH (18:15)
[2020-01-02] MEDS ORDERED: RINGER S LACTATED IVC ONE ×2 (18:37→20:15)
[2020-01-02] MEDS ORDERED: Ringers Solution, Lactated 250 ML IVC ONE (20:30)
[2020-01-02] MEDS ORDERED: Melatonin 3 MG TABLET PO SCH (21:00)
[2020-01-03] MEDS: Pantoprazole 40 MG VIAL IVP SCH (05:42)
[2020-01-03] MEDS: MethylPREDNISolone 40 MG/ML VIAL IVP SCH (05:42)
[2020-01-03] MEDS: Budesonide/Formoterol 160/4.5 1 PUFF INH IH SCH ×2 (07:46→19:41)
[2020-01-03] MEDS: Thiamine (B-1) 100 MG TABLET PO SCH (08:57)
[2020-01-03] MEDS: Furosemide 20 MG/2 ML VIAL IVP SCH (08:57)
[2020-01-03] MEDS: Folic Acid 1 MG TABLET PO SCH (08:57)
[2020-01-03] MEDS: Nystatin Cream 15 GM TUBE TP SCH (08:57)
[2020-01-03] MEDS: Cholecalciferol (D-3) 1,000 UNIT (25MCG) TABLET PO SCH (08:57)
[2020-01-03] MEDS: Lactulose Oral Soln 20 GM/30 ML UDC PO SCH ×2 (08:58→22:06)
[2020-01-03] MEDS: carvediloL 6.25 MG TABLET PO SCH (12:08)
[2020-01-03] MEDS: Azithromycin 250 MG TABLET PO SCH (17:00)
[2020-01-03] MEDS ORDERED: Melatonin 3 MG TABLET PO SCH (21:00)
[2020-01-03] MEDS: clonazePAM 0.5 MG TABLET PO SCH (22:05)
[2020-01-04] MEDS: Budesonide/Formoterol 160/4.5 1 PUFF INH IH SCH (07:44)
[2020-01-04 08:14] LABS: Basophils % 0.2 %; Eosinophils % 0.1 %; Hematocrit 31.9 % (35.3-44.9); Hemoglobin 9.6 g/dL (11.5-15.4); Immature Granulocytes % 1.3 % (0-4); Lymphocytes % 7.9 %; Mean Corpuscular HGB Conc 30.1 g/dL (31.6-35.5); Mean Corpuscular Hemoglobin 29.5 pg (28.0-33.3); Mean Corpuscular Volume 98.2 fL (83.0-100.0); Mean Platelet Volume 8.8 fL (9.4-12.4); Monocytes # 1.1 K/mcL (0.0-1.3); Neutrophils # 10.8 K/mcL (1.6-8.9); Platelet Count 252 K/mcL (140-400); Red Blood Count 3.25 M/mcL (3.82-4.97); Red Cell Distribution Width 15.4 % (11.5-14.5); Segmented Neutrophils % 82.5 %; White Blood Count 13.1 K/mcL (4.3-11.1)
[2020-01-04 08:30] LABS: BUN/Creatinine Ratio 30 (6-26); Blood Urea Nitrogen 16 mg/dL (8-23); Carbon Dioxide 39 mEq/L (23-29); Chloride 95 mEq/L (98-107); Glucose 91 mg/dL (70-105); Magnesium 1.4 mg/dL (1.6-2.6); Osmolality,Calculated 281 (280-300); Potassium 3.2 mEq/L (3.5-5.1); Sodium 135 mEq/L (136-145); eGFR For African Americans > 60 (> 60); eGFR For Non-African Americans > 60 (> 60)
[2020-01-04] MEDS ORDERED: Furosemide 20 MG TABLET PO SCH (09:00)
[2020-01-04] MEDS ORDERED: predniSONE 20 MG TABLET PO SCH (09:00)
[2020-01-04] MEDS: Lactulose Oral Soln 20 GM/30 ML UDC PO SCH (09:32)
[2020-01-04] MEDS: Folic Acid 1 MG TABLET PO SCH (09:33)
[2020-01-04] MEDS: clonazePAM 0.5 MG TABLET PO SCH (09:33)
[2020-01-04] MEDS: Thiamine (B-1) 100 MG TABLET PO SCH (09:34)
[2020-01-04] MEDS: Cholecalciferol (D-3) 1,000 UNIT (25MCG) TABLET PO SCH (09:34)
[2020-01-04] MEDS: Nystatin Cream 15 GM TUBE TP SCH (09:36)
[2020-01-04] MEDS: carvediloL 6.25 MG TABLET PO SCH (09:38)
[2020-01-04 12:18] VITALS: BP 146/78
== END 2020-01-04 14:58 ==
LOC: EMEROOARM 14:45 → 2NENU 14:45 → SUATTDRO 12-29 15:18 → 2ANU 12-30 21:55 → 3NENU 12-31 19:20 → 2ANU 01-03 15:28
PROVIDERS: ADMIT Internal Medicine; ATTEND Internal Medicine

== ENCOUNTER 2020-01-22 02:40 | Inpatient (IN) ==
[2020-01-22 02:54] LABS: ABG Base Excess 21 mEq/L (-2 to 3); ABG HCO3 54 mEq/L (21-27); ABG Oxygen Saturation 86 % (95-98); ABG PCO2 120 mmHg (35-45); ABG PH 7.26 pH Units (7.32-7.45); ABG PO2 66 mmHg (85-104); ABG TCO2 > 50 mEq/L (20-26)
[2020-01-22 04:06] LABS: Basophils # 0.1 K/mcL (0.0-0.2); Basophils % 0.3 %; Eosinophils # 0.1 K/mcL (0.0-0.6); Eosinophils % 0.2 %; Hematocrit 32.8 % (35.3-44.9); Hemoglobin 10.3 g/dL (11.5-15.4); Immature Granulocytes % 1.3 % (0-4); Lymphocytes # 1.2 K/mcL (0.6-4.6); Mean Corpuscular HGB Conc 31.4 g/dL (31.6-35.5); Mean Corpuscular Hemoglobin 30.6 pg (28.0-33.3); Mean Corpuscular Volume 97.3 fL (83.0-100.0); Mean Platelet Volume 9.6 fL (9.4-12.4); Monocytes # 0.8 K/mcL (0.0-1.3); Monocytes % 3.3 %; Neutrophils # 21.3 K/mcL (1.6-8.9); Platelet Count 256 K/mcL (140-400); Red Blood Count 3.37 M/mcL (3.82-4.97); Red Cell Distribution Width 15.1 % (11.5-14.5); Segmented Neutrophils % 89.9 %; White Blood Count 23.7 K/mcL (4.3-11.1)
[2020-01-22 04:12] LABS: INR 0.9; Prothrombin Time 10.3 Seconds (9.4-12.1)
[2020-01-22 04:14] LABS: Activated Partial Thrombo Time 28.4 Seconds (26.0-36.0)
[2020-01-22 04:23] LABS: Bilirubin,Urine Negative (Negative); Blood,Urine Negative (Negative); Clarity,Urine Clear (Clear); Color,Urine Yellow (Yellow); Glucose,Urine (UA) Normal (Normal); Ketones,Urine Negative (Negative); Leukocyte Esterase,Urine Negative (Negative); Nitrite,Urine Negative (Negative); PH,Urine 5.5 pH Units (5.0-8.0); Protein,Urine Trace mg/dL (Neg-Trace); Specific Gravity,Urine 1.018 (1.010-1.025); Urobilinogen,Urine Normal (Normal)
[2020-01-22 04:24] LABS: Platelet Estimate Normal (Normal); Polychromasia 1+ (Not Present)
[2020-01-22 04:28] LABS: Albumin 3.3 g/dL (3.5-5.7); Albumin/Globulin Ratio 1.2 (1.1-2.2); Bilirubin,Direct 0.2 mg/dL (0.0-0.2); Bilirubin,Indirect 0.5 mg/dL (0.0-1.0); Bilirubin,Total 0.7 mg/dL (0.3-1.0); Globulin 2.7 g/dL (2.4-3.5)
[2020-01-22 04:29] LABS: Lipase < 3 Units/L (11-82)
[2020-01-22] MEDS ORDERED: Piperacillin/Tazobactam 3.375 GM in Water for inj. (sterile) 20 ML IVP ONE (04:30)
[2020-01-22] MEDS ORDERED: 0.9 % Sodium Chloride 500 ML IVC ONE ×3 (04:30→07:28)
[2020-01-22 04:33] LABS: BUN/Creatinine Ratio 35 (6-26); Blood Urea Nitrogen 14 mg/dL (8-23); Calcium 8.1 mg/dL (8.6-10.3); Carbon Dioxide < 45 mEq/L (23-29); Chloride 76 mEq/L (98-107); Glucose 132 mg/dL (70-105); Osmolality,Calculated 266 (280-300); Potassium 3.4 mEq/L (3.5-5.1); Sodium 127 mEq/L (136-145); Troponin I < 0.03 ng/mL (< 0.04); eGFR For African Americans > 60 (> 60); eGFR For Non-African Americans > 60 (> 60)
[2020-01-22 05:22] LABS: ABG Base Excess 22 mEq/L (-2 to 3); ABG HCO3 57 mEq/L (21-27); ABG Oxygen Saturation 99 % (95-98); ABG PCO2 145 mmHg (35-45); ABG PO2 162 mmHg (85-104); ABG TCO2 > 50 mEq/L (20-26)
[2020-01-22] MEDS ORDERED: Azithromycin 500 MG in 0.9 % Sodium Chloride 250 ML IVPB ONE (05:27)
[2020-01-22] MEDS ORDERED: *HR* Etomidate 20 MG/10 ML AMPUL IVP ONE ×2 (05:59→10:42)
[2020-01-22] MEDS ORDERED: *HR* Succinylcholine 200 MG/10 ML VIAL IVP ONE ×2 (06:15→10:42)
[2020-01-22] MEDS ORDERED: Isovue-370 500 ML BOTTLE IVP ONE (06:18)
[2020-01-22] MEDS ORDERED: *HR* Midazolam HCl 5 MG/5 ML VIAL IVP ONE (06:39)
[2020-01-22] MEDS ORDERED: 0.9 % Sodium Chloride 1,000 ML IVC SCH (07:00)
[2020-01-22] MEDS ORDERED: *HR* FentaNYL (PF) 100 MCG/2 ML VIAL IVP ONE (07:36)
[2020-01-22 08:11] LABS: ABG Base Excess 20 mEq/L (-2 to 3); ABG HCO3 46 mEq/L (21-27); ABG Oxygen Saturation 100 % (95-98); ABG PCO2 62 mmHg (35-45); ABG PH 7.48 pH Units (7.32-7.45); ABG PO2 350 mmHg (85-104); ABG TCO2 48 mEq/L (20-26)
[2020-01-22] MEDS: Ipratropium 1 PUFF INHALER IH SCH ×5 (08:11→23:07)
[2020-01-22] MEDS: FentaNYL (PF) 1,000 MCG in 0.9 % Sodium Chloride 80 ML IVC SCH ×2 (08:19→22:00)
[2020-01-22] MEDS ORDERED: 0.9 % Sodium Chloride 1,000 ML ONE (08:34)
[2020-01-22 09:37] LABS: C-Reactive Protein 81 mg/L (Less than 10); Ferritin 222 ng/mL (10-120); Lactate Dehydrogenase 201 Units/L (140-271)
[2020-01-22] MEDS: *HR* Heparin 5,000 UNIT/ML VIAL SQ SCH ×3 (10:46→20:52)
[2020-01-22] MEDS ORDERED: Potassium Phosphate 44 MEQ in 0.9 % Sodium Chloride 250 ML IVPB PRN (10:52)
[2020-01-22] MEDS ORDERED: Artificial Tears SOLN 15 ML BOTTLE BOTH EYES PRN (11:16)
[2020-01-22 11:21] LABS: ABG Base Excess 19 mEq/L (-2 to 3); ABG HCO3 47 mEq/L (21-27); ABG Oxygen Saturation 92 % (95-98); ABG PCO2 80 mmHg (35-45); ABG PH 7.38 pH Units (7.32-7.45); ABG PO2 68 mmHg (85-104); ABG TCO2 50 mEq/L (20-26); Blood Gas Modality ASSIST CONTROL; Blood Gas VT 400 cc
[2020-01-22] MEDS ORDERED: Naloxone 0.4 MG/ML INJ IVP PRN (11:38)
[2020-01-22 11:52] LABS: Magnesium 1.1 mg/dL (1.6-2.6); Phosphorous 3.7 mg/dL (2.7-4.5)
[2020-01-22] MEDS: MethylPREDNISolone 40 MG/ML VIAL IVP SCH ×3 (11:53→23:15)
[2020-01-22] MEDS: Pantoprazole 40 MG VIAL IVP SCH (11:53)
[2020-01-22] MEDS: Furosemide 40 MG/4 ML VIAL IVP SCH ×2 (11:53→20:37)
[2020-01-22 12:59] LABS: Basophils % 0.1 %; Eosinophils # 0.1 K/mcL (0.0-0.6); Eosinophils % 0.3 %; Hematocrit 30.7 % (35.3-44.9); Hemoglobin 9.5 g/dL (11.5-15.4); Immature Granulocytes % 0.9 % (0-4); Lymphocytes # 0.9 K/mcL (0.6-4.6); Lymphocytes % 5.4 %; Mean Corpuscular HGB Conc 30.9 g/dL (31.6-35.5); Mean Corpuscular Hemoglobin 30.3 pg (28.0-33.3); Mean Corpuscular Volume 97.8 fL (83.0-100.0); Mean Platelet Volume 9.2 fL (9.4-12.4); Monocytes # 0.5 K/mcL (0.0-1.3); Neutrophils # 14.3 K/mcL (1.6-8.9); Platelet Count 214 K/mcL (140-400); Red Blood Count 3.14 M/mcL (3.82-4.97); Red Cell Distribution Width 14.9 % (11.5-14.5); Segmented Neutrophils % 90.3 %; White Blood Count 15.8 K/mcL (4.3-11.1)
[2020-01-22] MEDS: Artificial Tears SOLN 15 ML BOTTLE BOTH EYES SCH ×4 (12:59→23:16)
[2020-01-22 13:00] LABS: VBG Ionized Calcium 0.84 mmol/L (1.15-1.35)
[2020-01-22 13:34] LABS: BUN/Creatinine Ratio 36 (6-26); Blood Urea Nitrogen 13 mg/dL (8-23); Calcium 7.8 mg/dL (8.6-10.3); Carbon Dioxide 39 mEq/L (23-29); Chloride 81 mEq/L (98-107); Glucose 66 mg/dL (70-105); Osmolality,Calculated 268 (280-300); Potassium 3.5 mEq/L (3.5-5.1); Sodium 130 mEq/L (136-145); eGFR For African Americans > 60 (> 60); eGFR For Non-African Americans > 60 (> 60)
[2020-01-22] MEDS: Calcium Gluconate 1gm/50mL 1 GM/50 ML BAG IVPB PRN ×2 (14:13→20:51)
[2020-01-22 16:55] LABS: ABG Base Excess 13 mEq/L (-2 to 3); ABG HCO3 39 mEq/L (21-27); ABG Oxygen Saturation 94 % (95-98); ABG PCO2 61 mmHg (35-45); ABG PH 7.42 pH Units (7.32-7.45); ABG PO2 75 mmHg (85-104); ABG TCO2 41 mEq/L (20-26); Blood Gas Modality ASSIST CONTROL; Blood Gas VT 400 cc
[2020-01-22] MEDS: Piperacillin/Tazobactam 3.375 GM in 0.9 % Sodium Chloride Mini Bag 100 ML IVPB SCH ×2 (17:02→23:16)
[2020-01-22 17:45] LABS: BUN/Creatinine Ratio 33 (6-26); Blood Urea Nitrogen 12 mg/dL (8-23); Calcium 8.2 mg/dL (8.6-10.3); Carbon Dioxide 39 mEq/L (23-29); Chloride 80 mEq/L (98-107); Glucose 82 mg/dL (70-105); Osmolality,Calculated 267 (280-300); Potassium 4.3 mEq/L (3.5-5.1); Sodium 129 mEq/L (136-145); eGFR For African Americans > 60 (> 60); eGFR For Non-African Americans > 60 (> 60)
[2020-01-22] MEDS: Chlorhexidine Rinse 15 ML MOUTHWASH MM SCH (20:38)
[2020-01-23] MEDS: Ipratropium 1 PUFF INHALER IH SCH ×6 (03:08→23:41)
[2020-01-23] MEDS: Artificial Tears SOLN 15 ML BOTTLE BOTH EYES SCH ×6 (04:04→23:20)
[2020-01-23 04:09] LABS: ABG Base Excess 13 mEq/L (-2 to 3); ABG HCO3 39 mEq/L (21-27); ABG Oxygen Saturation 94 % (95-98); ABG PCO2 64 mmHg (35-45); ABG PO2 76 mmHg (85-104); ABG TCO2 41 mEq/L (20-26); Blood Gas Modality VC; Blood Gas VT 400 cc
[2020-01-23 05:09] LABS: Basophils % 0.1 %; Hematocrit 29.7 % (35.3-44.9); Hemoglobin 9.2 g/dL (11.5-15.4); Immature Granulocytes % 1.2 % (0-4); Lymphocytes # 0.5 K/mcL (0.6-4.6); Lymphocytes % 2.2 %; Mean Corpuscular Hemoglobin 29.9 pg (28.0-33.3); Mean Corpuscular Volume 96.4 fL (83.0-100.0); Mean Platelet Volume 9.6 fL (9.4-12.4); Monocytes # 0.2 K/mcL (0.0-1.3); Neutrophils # 20.7 K/mcL (1.6-8.9); Platelet Count 234 K/mcL (140-400); Red Blood Count 3.08 M/mcL (3.82-4.97); Segmented Neutrophils % 95.5 %; White Blood Count 21.7 K/mcL (4.3-11.1)
[2020-01-23 05:27] LABS: BUN/Creatinine Ratio 33 (6-26); Blood Urea Nitrogen 15 mg/dL (8-23); Calcium 8.3 mg/dL (8.6-10.3); Carbon Dioxide 37 mEq/L (23-29); Chloride 82 mEq/L (98-107); Glucose 158 mg/dL (70-105); Magnesium 2.1 mg/dL (1.6-2.6); Osmolality,Calculated 276 (280-300); Phosphorous 4.2 mg/dL (2.7-4.5); Potassium 3.8 mEq/L (3.5-5.1); Sodium 131 mEq/L (136-145); eGFR For African Americans > 60 (> 60); eGFR For Non-African Americans > 60 (> 60)
[2020-01-23] MEDS: *HR* Heparin 5,000 UNIT/ML VIAL SQ SCH ×3 (05:28→20:17)
[2020-01-23] MEDS: MethylPREDNISolone 40 MG/ML VIAL IVP SCH ×3 (05:28→17:56)
[2020-01-23 05:44] LABS: VBG Ionized Calcium 0.91 mmol/L (1.15-1.35)
[2020-01-23] MEDS: Calcium Gluconate 1gm/50mL 1 GM/50 ML BAG IVPB PRN ×3 (05:52→17:55)
[2020-01-23] MEDS ORDERED: Azithromycin 500 MG in 0.9 % Sodium Chloride 250 ML IVPB SCH (07:00)
[2020-01-23] MEDS: Furosemide 40 MG/4 ML VIAL IVP SCH ×2 (07:55→20:16)
[2020-01-23] MEDS: Chlorhexidine Rinse 15 ML MOUTHWASH MM SCH ×2 (07:55→20:16)
[2020-01-23] MEDS: Piperacillin/Tazobactam 3.375 GM in 0.9 % Sodium Chloride Mini Bag 100 ML IVPB SCH ×3 (07:55→23:20)
[2020-01-23] MEDS: Pantoprazole 40 MG VIAL IVP SCH (07:56)
[2020-01-23] MEDS: FentaNYL (PF) 1,000 MCG in 0.9 % Sodium Chloride 80 ML IVC SCH ×3 (10:32→22:20)
[2020-01-23 11:27] LABS: BUN/Creatinine Ratio 34 (6-26); Blood Urea Nitrogen 15 mg/dL (8-23); Calcium 8.3 mg/dL (8.6-10.3); Carbon Dioxide 40 mEq/L (23-29); Chloride 82 mEq/L (98-107); Glucose 213 mg/dL (70-105); Osmolality,Calculated 279 (280-300); Potassium 3.6 mEq/L (3.5-5.1); Sodium 131 mEq/L (136-145); eGFR For African Americans > 60 (> 60); eGFR For Non-African Americans > 60 (> 60)
[2020-01-23 13:13] LABS: VBG Ionized Calcium 0.98 mmol/L (1.15-1.35)
[2020-01-23] MEDS ORDERED: *HR* Dextrose 50 % in Water (Syg) 50 ML SYRINGE IVP PRN (16:52)
[2020-01-23] MEDS ORDERED: Dextrose Gel 15 GM/37.5 ML TUBE PO PRN ×2 (16:52)
[2020-01-23] MEDS ORDERED: D5% in Water 1,000 ML IVC PRN (16:52)
[2020-01-23 17:24] LABS: VBG Ionized Calcium 0.92 mmol/L (1.15-1.35)
[2020-01-23] MEDS: Vancomycin 500 MG in 0.9 % Sodium Chloride Mini Bag 100 ML IVPB SCH (17:55)
[2020-01-23] MEDS: Doxycycline 100 MG in 0.9 % Sodium Chloride Mini Bag 100 ML IVPB SCH (17:56)
[2020-01-23] MEDS: Insulin LISPRO 300 UNITS/3 ML VIAL SQ SCH ×2 (17:56→23:21)
[2020-01-23 23:41] LABS: VBG Ionized Calcium 0.97 mmol/L (1.15-1.35)
[2020-01-24] MEDS: Calcium Gluconate 1gm/50mL 1 GM/50 ML BAG IVPB PRN (00:23)
[2020-01-24] MEDS: Ipratropium 1 PUFF INHALER IH SCH ×4 (03:16→15:50)
[2020-01-24 03:42] LABS: ABG Base Excess 12 mEq/L (-2 to 3); ABG HCO3 39 mEq/L (21-27); ABG Oxygen Saturation 93 % (95-98); ABG PCO2 65 mmHg (35-45); ABG PH 7.39 pH Units (7.32-7.45); ABG PO2 70 mmHg (85-104); ABG TCO2 41 mEq/L (20-26); Blood Gas VT 400 cc
[2020-01-24] MEDS: Artificial Tears SOLN 15 ML BOTTLE BOTH EYES SCH ×5 (03:46→20:49)
[2020-01-24 04:16] LABS: Basophils % 0.1 %; Hematocrit 27.5 % (35.3-44.9); Hemoglobin 8.6 g/dL (11.5-15.4); Immature Granulocytes % 1.2 % (0-4); Lymphocytes # 0.3 K/mcL (0.6-4.6); Lymphocytes % 1.7 %; Mean Corpuscular HGB Conc 31.3 g/dL (31.6-35.5); Mean Corpuscular Hemoglobin 30.4 pg (28.0-33.3); Mean Corpuscular Volume 97.2 fL (83.0-100.0); Mean Platelet Volume 9.3 fL (9.4-12.4); Monocytes # 0.4 K/mcL (0.0-1.3); Monocytes % 2.2 %; Platelet Count 193 K/mcL (140-400); Red Blood Count 2.83 M/mcL (3.82-4.97); Red Cell Distribution Width 15.1 % (11.5-14.5); Segmented Neutrophils % 94.8 %; White Blood Count 15.8 K/mcL (4.3-11.1)
[2020-01-24 04:44] LABS: BUN/Creatinine Ratio 42 (6-26); Blood Urea Nitrogen 20 mg/dL (8-23); Calcium 8.7 mg/dL (8.6-10.3); Carbon Dioxide 40 mEq/L (23-29); Chloride 85 mEq/L (98-107); Glucose 194 mg/dL (70-105); Magnesium 1.6 mg/dL (1.6-2.6); Osmolality,Calculated 280 (280-300); Phosphorous 2.3 mg/dL (2.7-4.5); Potassium 3.9 mEq/L (3.5-5.1); Sodium 131 mEq/L (136-145); eGFR For African Americans > 60 (> 60); eGFR For Non-African Americans > 60 (> 60)
[2020-01-24] MEDS: Doxycycline 100 MG in 0.9 % Sodium Chloride Mini Bag 100 ML IVPB SCH ×2 (05:22→17:13)
[2020-01-24] MEDS: Vancomycin 500 MG in 0.9 % Sodium Chloride Mini Bag 100 ML IVPB SCH ×2 (05:22→17:13)
[2020-01-24] MEDS: *HR* Heparin 5,000 UNIT/ML VIAL SQ SCH ×3 (05:22→21:28)
[2020-01-24] MEDS: MethylPREDNISolone 40 MG/ML VIAL IVP SCH ×2 (05:23→18:23)
[2020-01-24] MEDS: Insulin LISPRO 300 UNITS/3 ML VIAL SQ SCH ×3 (05:23→17:14)
[2020-01-24] MEDS: Pantoprazole 40 MG VIAL IVP SCH (08:29)
[2020-01-24] MEDS: Furosemide 40 MG/4 ML VIAL IVP SCH ×2 (08:29→21:28)
[2020-01-24] MEDS: Piperacillin/Tazobactam 3.375 GM in 0.9 % Sodium Chloride Mini Bag 100 ML IVPB SCH ×2 (08:29→16:01)
[2020-01-24] MEDS: Chlorhexidine Rinse 15 ML MOUTHWASH MM SCH ×2 (08:29→20:49)
[2020-01-24] MEDS: Dexmedetomidine HCl 400 MCG/100 ML MLS IVC SCH (10:46)
[2020-01-24 11:21] LABS: BUN/Creatinine Ratio 41 (6-26); Blood Urea Nitrogen 21 mg/dL (8-23); Calcium 8.7 mg/dL (8.6-10.3); Carbon Dioxide 37 mEq/L (23-29); Chloride 86 mEq/L (98-107); Glucose 169 mg/dL (70-105); Magnesium 2.1 mg/dL (1.6-2.6); Osmolality,Calculated 281 (280-300); Potassium 4.6 mEq/L (3.5-5.1); Sodium 132 mEq/L (136-145); eGFR For African Americans > 60 (> 60); eGFR For Non-African Americans > 60 (> 60)
[2020-01-24] MEDS: Ipratropium/Albuterol Neb 3 ML IH SCH ×2 (19:53→23:42)
[2020-01-25] MEDS: Piperacillin/Tazobactam 3.375 GM in 0.9 % Sodium Chloride Mini Bag 100 ML IVPB SCH (00:07)
[2020-01-25] MEDS: Artificial Tears SOLN 15 ML BOTTLE BOTH EYES SCH ×2 (00:07→03:39)
[2020-01-25] MEDS: Insulin LISPRO 300 UNITS/3 ML VIAL SQ SCH ×4 (00:08→16:54)
[2020-01-25] MEDS: Ipratropium/Albuterol Neb 3 ML IH SCH ×6 (03:13→23:47)
[2020-01-25] MEDS: Dexmedetomidine HCl 400 MCG/100 ML MLS IVC SCH (03:52)
[2020-01-25 05:28] LABS: BUN/Creatinine Ratio 43 (6-26); Blood Urea Nitrogen 18 mg/dL (8-23); Calcium 8.3 mg/dL (8.6-10.3); Carbon Dioxide 39 mEq/L (23-29); Chloride 85 mEq/L (98-107); Glucose 136 mg/dL (70-105); Osmolality,Calculated 278 (280-300); Potassium 3.6 mEq/L (3.5-5.1); Sodium 132 mEq/L (136-145); eGFR For African Americans > 60 (> 60); eGFR For Non-African Americans > 60 (> 60)
[2020-01-25] MEDS: Doxycycline 100 MG in 0.9 % Sodium Chloride Mini Bag 100 ML IVPB SCH ×2 (05:45→22:05)
[2020-01-25] MEDS: Vancomycin 500 MG in 0.9 % Sodium Chloride Mini Bag 100 ML IVPB SCH (05:45)
[2020-01-25] MEDS: MethylPREDNISolone 40 MG/ML VIAL IVP SCH (05:45)
[2020-01-25] MEDS: *HR* Heparin 5,000 UNIT/ML VIAL SQ SCH ×4 (05:45→22:09)
[2020-01-25 05:49] LABS: Basophils % 0.1 %; Hematocrit 29.7 % (35.3-44.9); Hemoglobin 9.1 g/dL (11.5-15.4); Lymphocytes # 0.3 K/mcL (0.6-4.6); Lymphocytes % 1.8 %; Mean Corpuscular HGB Conc 30.6 g/dL (31.6-35.5); Mean Corpuscular Hemoglobin 29.7 pg (28.0-33.3); Mean Corpuscular Volume 97.1 fL (83.0-100.0); Mean Platelet Volume 9.6 fL (9.4-12.4); Monocytes # 0.5 K/mcL (0.0-1.3); Neutrophils # 14.5 K/mcL (1.6-8.9); Platelet Count 197 K/mcL (140-400); Red Blood Count 3.06 M/mcL (3.82-4.97); Red Cell Distribution Width 14.7 % (11.5-14.5); Segmented Neutrophils % 94.1 %; White Blood Count 15.4 K/mcL (4.3-11.1)
[2020-01-25 05:57] LABS: Magnesium 1.5 mg/dL (1.6-2.6); Phosphorous 3.7 mg/dL (2.7-4.5)
[2020-01-25] MEDS: clonazePAM 0.5 MG TABLET PO SCH ×2 (08:42→19:47)
[2020-01-25] MEDS: Pantoprazole 40 MG VIAL IVP SCH (08:43)
[2020-01-25] MEDS: Furosemide 40 MG/4 ML VIAL IVP SCH ×2 (08:45→22:09)
[2020-01-25] MEDS: Nicotine 21 MG PATCH.TD24 TD SCH (08:47)
[2020-01-25 14:49] LABS: Sodium 133 mEq/L (136-145)
[2020-01-25 14:50] LABS: BUN/Creatinine Ratio 39 (6-26); Blood Urea Nitrogen 20 mg/dL (8-23); Calcium 8.5 mg/dL (8.6-10.3); Carbon Dioxide 39 mEq/L (23-29); Chloride 85 mEq/L (98-107); Glucose 294 mg/dL (70-105); Magnesium 2.1 mg/dL (1.6-2.6); Osmolality,Calculated 289 (280-300); eGFR For African Americans > 60 (> 60); eGFR For Non-African Americans > 60 (> 60)
[2020-01-25] MEDS ORDERED: Aminoglycoside Consult 1 EACH MC ONE (17:12)
[2020-01-25] MEDS ORDERED: Insulin LISPRO 300 UNITS/3 ML VIAL SQ SCH (21:00)
[2020-01-25] MEDS ORDERED: Melatonin 3 MG TABLET PO PRN (23:38)
[2020-01-26 00:05] LABS: ABG Base Excess 13 mEq/L (-2 to 3); ABG HCO3 40 mEq/L (21-27); ABG Oxygen Saturation 95 % (95-98); ABG PCO2 64 mmHg (35-45); ABG PH 7.41 pH Units (7.32-7.45); ABG PO2 76 mmHg (85-104); ABG TCO2 42 mEq/L (20-26)
[2020-01-26] MEDS: Ipratropium/Albuterol Neb 3 ML IH SCH ×6 (03:41→23:34)
[2020-01-26 05:05] LABS: Basophils % 0.1 %; Hematocrit 31.5 % (35.3-44.9); Hemoglobin 9.6 g/dL (11.5-15.4); Immature Granulocytes % 1.2 % (0-4); Lymphocytes # 0.8 K/mcL (0.6-4.6); Lymphocytes % 5.3 %; Mean Corpuscular HGB Conc 30.5 g/dL (31.6-35.5); Mean Corpuscular Hemoglobin 30.1 pg (28.0-33.3); Mean Corpuscular Volume 98.7 fL (83.0-100.0); Mean Platelet Volume 9.4 fL (9.4-12.4); Monocytes # 0.9 K/mcL (0.0-1.3); Monocytes % 6.1 %; Neutrophils # 12.8 K/mcL (1.6-8.9); Platelet Count 212 K/mcL (140-400); Red Blood Count 3.19 M/mcL (3.82-4.97); Red Cell Distribution Width 14.8 % (11.5-14.5); Segmented Neutrophils % 87.3 %; White Blood Count 14.7 K/mcL (4.3-11.1)
[2020-01-26 05:34] LABS: BUN/Creatinine Ratio 37 (6-26); Blood Urea Nitrogen 16 mg/dL (8-23); Calcium 8.6 mg/dL (8.6-10.3); Carbon Dioxide 41 mEq/L (23-29); Chloride 83 mEq/L (98-107); Glucose 129 mg/dL (70-105); Osmolality,Calculated 277 (280-300); Potassium 3.3 mEq/L (3.5-5.1); Sodium 132 mEq/L (136-145); eGFR For African Americans > 60 (> 60); eGFR For Non-African Americans > 60 (> 60)
[2020-01-26] MEDS: Doxycycline 100 MG in 0.9 % Sodium Chloride Mini Bag 100 ML IVPB SCH ×2 (05:42→18:15)
[2020-01-26] MEDS: *HR* Heparin 5,000 UNIT/ML VIAL SQ SCH ×3 (05:43→20:12)
[2020-01-26] MEDS: clonazePAM 0.5 MG TABLET PO SCH ×2 (08:05→20:12)
[2020-01-26] MEDS: Furosemide 40 MG/4 ML VIAL IVP SCH (08:05)
[2020-01-26] MEDS: Nicotine 21 MG PATCH.TD24 TD SCH (08:05)
[2020-01-26] MEDS: Pantoprazole 40 MG VIAL IVP SCH (08:05)
[2020-01-26] MEDS: Insulin LISPRO 300 UNITS/3 ML VIAL SQ SCH ×4 (08:06→22:00)
[2020-01-26] MEDS ORDERED: predniSONE 20 MG TABLET PO SCH (09:00)
[2020-01-26] MEDS ORDERED: *HR* Dextrose 50 % in Water (Syg) 50 ML SYRINGE IVP PRN (09:59)
[2020-01-26] MEDS ORDERED: Dextrose Gel 15 GM/37.5 ML TUBE PO PRN ×2 (09:59)
[2020-01-26] MEDS ORDERED: Naloxone 0.4 MG/ML INJ IVP PRN (09:59)
[2020-01-26] MEDS ORDERED: D5% in Water 1,000 ML IVC PRN (09:59)
[2020-01-26] MEDS: amLODIPine 5 MG TABLET PO SCH (11:35)
[2020-01-26 12:12] LABS: Estimated Average Glucose 123 mg/dl
[2020-01-26] MEDS: Acetaminophen 325 MG TABLET PO PRN ×2 (14:18→20:11)
[2020-01-26] MEDS: Insulin DETEMIR 100 UNIT/ML X5UNITS SQ SCH (14:19)
[2020-01-26] MEDS: Furosemide 40 MG TABLET PO SCH (16:27)
[2020-01-26] MEDS: carvediloL 6.25 MG TABLET PO SCH (16:27)
[2020-01-26] MEDS ORDERED: Furosemide 40 MG TABLET PO SCH (17:00)
[2020-01-26] MEDS: Melatonin 3 MG TABLET PO PRN (20:12)
[2020-01-27] MEDS ORDERED: Melatonin 3 MG TABLET PO ONE (00:10)
[2020-01-27] MEDS: Acetaminophen 325 MG TABLET PO PRN ×3 (02:39→17:47)
[2020-01-27] MEDS: Ipratropium/Albuterol Neb 3 ML IH SCH ×6 (03:43→23:11)
[2020-01-27] MEDS: *HR* Heparin 5,000 UNIT/ML VIAL SQ SCH ×3 (05:30→21:24)
[2020-01-27] MEDS: Doxycycline 100 MG in 0.9 % Sodium Chloride Mini Bag 100 ML IVPB SCH ×2 (05:31→17:47)
[2020-01-27] MEDS: Insulin LISPRO 300 UNITS/3 ML VIAL SQ SCH ×4 (07:59→21:28)
[2020-01-27] MEDS ORDERED: Pantoprazole 40 MG VIAL IVP SCH (09:00)
[2020-01-27 09:05] LABS: Basophils % 0.2 %; Eosinophils % 0.3 %; Hematocrit 32.5 % (35.3-44.9); Hemoglobin 10.2 g/dL (11.5-15.4); Immature Granulocytes % 1.6 % (0-4); Lymphocytes # 1.4 K/mcL (0.6-4.6); Lymphocytes % 11.7 %; Mean Corpuscular HGB Conc 31.4 g/dL (31.6-35.5); Mean Corpuscular Hemoglobin 30.8 pg (28.0-33.3); Mean Corpuscular Volume 98.2 fL (83.0-100.0); Mean Platelet Volume 9.4 fL (9.4-12.4); Monocytes # 0.7 K/mcL (0.0-1.3); Monocytes % 5.3 %; Neutrophils # 9.9 K/mcL (1.6-8.9); Platelet Count 220 K/mcL (140-400); Red Blood Count 3.31 M/mcL (3.82-4.97); Red Cell Distribution Width 15.3 % (11.5-14.5); Segmented Neutrophils % 80.9 %; White Blood Count 12.3 K/mcL (4.3-11.1)
[2020-01-27] MEDS: carvediloL 6.25 MG TABLET PO SCH ×2 (09:22→17:47)
[2020-01-27] MEDS: clonazePAM 0.5 MG TABLET PO SCH ×2 (09:23→21:23)
[2020-01-27] MEDS: predniSONE 20 MG TABLET PO SCH (09:23)
[2020-01-27] MEDS: Furosemide 40 MG TABLET PO SCH ×2 (09:23→17:47)
[2020-01-27] MEDS: amLODIPine 5 MG TABLET PO SCH (09:23)
[2020-01-27] MEDS: Nicotine 21 MG PATCH.TD24 TD SCH (09:24)
[2020-01-27] MEDS: Insulin DETEMIR 100 UNIT/ML X5UNITS SQ SCH (09:29)
[2020-01-27 09:30] LABS: BUN/Creatinine Ratio 35 (6-26); Blood Urea Nitrogen 11 mg/dL (8-23); Calcium 9.1 mg/dL (8.6-10.3); Carbon Dioxide 43 mEq/L (23-29); Chloride 84 mEq/L (98-107); Glucose 85 mg/dL (70-105); Osmolality,Calculated 277 (280-300); Sodium 134 mEq/L (136-145); eGFR For African Americans > 60 (> 60); eGFR For Non-African Americans > 60 (> 60)
[2020-01-27] MEDS ORDERED: *HR* LORazepam 2 MG/ML VIAL IVP ONE (14:00)
[2020-01-27] MEDS: Melatonin 3 MG TABLET PO PRN (21:24)
[2020-01-27] MEDS ORDERED: *HR* LORazepam 0.5 MG TABLET PO ONE (22:00)
[2020-01-28] MEDS: Ipratropium/Albuterol Neb 3 ML IH SCH ×5 (04:22→19:52)
[2020-01-28] MEDS: Doxycycline 100 MG in 0.9 % Sodium Chloride Mini Bag 100 ML IVPB SCH ×2 (05:40→17:12)
[2020-01-28] MEDS: *HR* Heparin 5,000 UNIT/ML VIAL SQ SCH ×3 (05:41→21:46)
[2020-01-28] MEDS: Insulin LISPRO 300 UNITS/3 ML VIAL SQ SCH ×4 (07:34→22:27)
[2020-01-28] MEDS: Nicotine 21 MG PATCH.TD24 TD SCH (08:35)
[2020-01-28] MEDS: clonazePAM 0.5 MG TABLET PO SCH ×2 (08:36→21:45)
[2020-01-28] MEDS: Furosemide 40 MG TABLET PO SCH ×2 (08:36→15:51)
[2020-01-28] MEDS: predniSONE 20 MG TABLET PO SCH (08:36)
[2020-01-28] MEDS: amLODIPine 5 MG TABLET PO SCH (08:36)
[2020-01-28] MEDS: carvediloL 6.25 MG TABLET PO SCH ×2 (08:37→15:51)
[2020-01-28] MEDS: Insulin DETEMIR 100 UNIT/ML X5UNITS SQ SCH (08:42)
[2020-01-28 08:59] LABS: Basophils % 0.2 %; Eosinophils # 0.1 K/mcL (0.0-0.6); Eosinophils % 0.5 %; Hematocrit 33.4 % (35.3-44.9); Hemoglobin 10.2 g/dL (11.5-15.4); Immature Granulocytes % 2.5 % (0-4); Lymphocytes # 1.9 K/mcL (0.6-4.6); Lymphocytes % 12.6 %; Mean Corpuscular HGB Conc 30.5 g/dL (31.6-35.5); Mean Corpuscular Volume 98.2 fL (83.0-100.0); Mean Platelet Volume 9.7 fL (9.4-12.4); Monocytes # 0.6 K/mcL (0.0-1.3); Platelet Count 244 K/mcL (140-400); Red Cell Distribution Width 14.9 % (11.5-14.5); Segmented Neutrophils % 80.2 %; White Blood Count 14.9 K/mcL (4.3-11.1)
[2020-01-28 09:09] LABS: BUN/Creatinine Ratio 33 (6-26); Blood Urea Nitrogen 13 mg/dL (8-23); Calcium 8.4 mg/dL (8.6-10.3); Carbon Dioxide 43 mEq/L (23-29); Chloride 82 mEq/L (98-107); Glucose 76 mg/dL (70-105); Osmolality,Calculated 273 (280-300); Potassium 3.6 mEq/L (3.5-5.1); Sodium 132 mEq/L (136-145); eGFR For African Americans > 60 (> 60); eGFR For Non-African Americans > 60 (> 60)
[2020-01-28] MEDS: Acetaminophen 325 MG TABLET PO PRN (10:52)
[2020-01-28] MEDS ORDERED: *HR* OxyCODONE Immed Rel 5 MG TABLET PO PRN (15:41)
[2020-01-28] MEDS ORDERED: *HR* LORazepam 0.5 MG TABLET PO ONE (22:36)
[2020-01-29] MEDS: Ipratropium/Albuterol Neb 3 ML IH SCH ×5 (00:27→15:55)
[2020-01-29 03:23] LABS: Segmented Neutrophils % 86.3 %; White Blood Count 18.5 K/mcL (4.3-11.1)
[2020-01-29 03:25] LABS: Basophils % 0.2 %; Eosinophils % 0.1 %; Hematocrit 31.1 % (35.3-44.9); Hemoglobin 9.4 g/dL (11.5-15.4); Immature Platelets 17.5 % (1.1-6.1); Lymphocytes # 1.2 K/mcL (0.6-4.6); Lymphocytes % 6.7 %; Mean Corpuscular HGB Conc 30.2 g/dL (31.6-35.5); Mean Corpuscular Hemoglobin 29.8 pg (28.0-33.3); Mean Corpuscular Volume 98.7 fL (83.0-100.0); Mean Platelet Volume 11.5 fL (9.4-12.4); Monocytes # 0.9 K/mcL (0.0-1.3); Monocytes % 4.7 %; Platelet Count 140 K/mcL (140-400); Red Blood Count 3.15 M/mcL (3.82-4.97)
[2020-01-29 03:35] LABS: BUN/Creatinine Ratio 51 (6-26); Blood Urea Nitrogen 18 mg/dL (8-23); Carbon Dioxide 45 mEq/L (23-29); Chloride 84 mEq/L (98-107); Glucose 101 mg/dL (70-105); Osmolality,Calculated 282 (280-300); Potassium 3.4 mEq/L (3.5-5.1); Sodium 135 mEq/L (136-145); eGFR For African Americans > 60 (> 60); eGFR For Non-African Americans > 60 (> 60)
[2020-01-29] MEDS: Doxycycline 100 MG in 0.9 % Sodium Chloride Mini Bag 100 ML IVPB SCH (06:09)
[2020-01-29] MEDS: *HR* Heparin 5,000 UNIT/ML VIAL SQ SCH ×2 (06:11→16:47)
[2020-01-29] MEDS: Insulin LISPRO 300 UNITS/3 ML VIAL SQ SCH ×2 (09:30→11:52)
[2020-01-29] MEDS: Furosemide 40 MG TABLET PO SCH (09:42)
[2020-01-29] MEDS: carvediloL 6.25 MG TABLET PO SCH (09:42)
[2020-01-29] MEDS: Insulin DETEMIR 100 UNIT/ML X5UNITS SQ SCH (09:43)
[2020-01-29] MEDS: clonazePAM 0.5 MG TABLET PO SCH (09:43)
[2020-01-29] MEDS: amLODIPine 5 MG TABLET PO SCH (09:44)
[2020-01-29] MEDS: predniSONE 20 MG TABLET PO SCH (09:44)
[2020-01-29] MEDS: Nicotine 21 MG PATCH.TD24 TD SCH (09:45)
[2020-01-29 10:33] VITALS: BP 137/83
[2020-01-29] MEDS ORDERED: *HR* LORazepam 2 MG/ML VIAL IVP ONE (16:43)
== END 2020-01-29 17:13 | DRG 208 ==
LOC: EMEROOARM 02:40 → 2NENU 02:40 → SUATTDRO 08:15 → ICNU 08:15 → 3ANU 01-26 17:01
PROVIDERS: ADMIT Internal Medicine; ATTEND Internal Medicine

== ENCOUNTER 2020-02-03 19:32 | Inpatient (IN) ==
[2020-02-03] MEDS ORDERED: Ipratropium/Albuterol Neb 3 ML IH ONE (19:40)
[2020-02-03] MEDS ORDERED: 0.9 % Sodium Chloride 1,000 ML IVC ONE (19:40)
[2020-02-03] MEDS ORDERED: methylPREDNISolone 125 MG/2 ML VIAL IVP ONE (19:41)
[2020-02-03 19:51] LABS: ABG Base Excess 14 mEq/L (-2 to 3); ABG HCO3 40 mEq/L (21-27); ABG Oxygen Saturation 79 % (95-98); ABG PCO2 61 mmHg (35-45); ABG PH 7.43 pH Units (7.32-7.45); ABG PO2 44 mmHg (85-104); ABG TCO2 42 mEq/L (20-26); Blood Gas Modality NIV
[2020-02-03 19:57] LABS: Basophils % 0.2 %; Eosinophils % 0.2 %; Hematocrit 29.9 % (35.3-44.9); Hemoglobin 9.6 g/dL (11.5-15.4); Immature Granulocytes % 1.2 % (0-4); Lymphocytes # 0.8 K/mcL (0.6-4.6); Lymphocytes % 4.3 %; Mean Corpuscular HGB Conc 32.1 g/dL (31.6-35.5); Mean Corpuscular Hemoglobin 30.8 pg (28.0-33.3); Mean Corpuscular Volume 95.8 fL (83.0-100.0); Mean Platelet Volume 8.9 fL (9.4-12.4); Monocytes % 5.4 %; Neutrophils # 17.1 K/mcL (1.6-8.9); Platelet Count 274 K/mcL (140-400); Red Blood Count 3.12 M/mcL (3.82-4.97); Red Cell Distribution Width 15.2 % (11.5-14.5); Segmented Neutrophils % 88.7 %; White Blood Count 19.3 K/mcL (4.3-11.1)
[2020-02-03 20:06] LABS: VBG HCO3 44 mEq/L (21-27); VBG PCO2 75 mmHg (41-51); VBG PH 7.37 pH Units (7.32-7.42); VBG PO2 67 mmHg (25-50)
[2020-02-03] MEDS ORDERED: Piperacillin/Tazobactam 3.375 GM in Water for inj. (sterile) 20 ML IVP ONE (20:23)
[2020-02-03] MEDS ORDERED: levoFLOXacin 750 MG/150 ML 750 MG/150 ML BAG IVPB ONE (20:23)
[2020-02-03 20:24] LABS: Alanine Aminotransferase 17 Units/L (7-52); Albumin 3.5 g/dL (3.5-5.7); Albumin/Globulin Ratio 1.3 (1.1-2.2); Alkaline Phosphatase 83 Units/L (34-104); Aspartate Amino Transferase 21 Units/L (13-39); BUN/Creatinine Ratio 14 (6-26); Bilirubin,Total 0.6 mg/dL (0.3-1.0); Blood Urea Nitrogen 9 mg/dL (8-23); Calcium 8.5 mg/dL (8.6-10.3); Carbon Dioxide 38 mEq/L (23-29); Chloride 76 mEq/L (98-107); Globulin 2.8 g/dL (2.4-3.5); Glucose 107 mg/dL (70-105); Osmolality,Calculated 255 (280-300); Potassium 3.6 mEq/L (3.5-5.1); Sodium 123 mEq/L (136-145); Total Protein 6.3 g/dL (6.4-8.9); Troponin I < 0.03 ng/mL (< 0.04); eGFR For African Americans > 60 (> 60); eGFR For Non-African Americans > 60 (> 60)
[2020-02-03 20:37] LABS: Bilirubin,Urine Negative (Negative); Blood,Urine Negative (Negative); Clarity,Urine Clear (Clear); Color,Urine Yellow (Yellow); Glucose,Urine (UA) Normal (Normal); Ketones,Urine Negative (Negative); Leukocyte Esterase,Urine Negative (Negative); Nitrite,Urine Negative (Negative); PH,Urine 6.5 pH Units (5.0-8.0); Protein,Urine Negative (Neg-Trace); Specific Gravity,Urine 1.012 (1.010-1.025); Urobilinogen,Urine Normal (Normal)
[2020-02-03] MEDS ORDERED: 0.9 % Sodium Chloride 1,000 ML IVC SCH (22:30)
[2020-02-03] MEDS ORDERED: Naloxone 0.4 MG/ML INJ IVP PRN (23:11)
[2020-02-03] MEDS ORDERED: clonazePAM 0.5 MG TABLET PO PRN (23:26)
[2020-02-04] MEDS: Ipratropium/Albuterol Neb 3 ML IH PRN (00:07)
[2020-02-04 00:23] LABS: ABG Base Excess 9 mEq/L (-2 to 3); ABG HCO3 37 mEq/L (21-27); ABG Oxygen Saturation 95 % (95-98); ABG PCO2 68 mmHg (35-45); ABG PH 7.35 pH Units (7.32-7.45); ABG PO2 81 mmHg (85-104); ABG TCO2 39 mEq/L (20-26)
[2020-02-04 00:29] LABS: Hematocrit 27.1 % (35.3-44.9); Hemoglobin 8.7 g/dL (11.5-15.4); Mean Corpuscular HGB Conc 32.1 g/dL (31.6-35.5); Mean Corpuscular Hemoglobin 30.9 pg (28.0-33.3); Mean Corpuscular Volume 96.1 fL (83.0-100.0); Mean Platelet Volume 9.6 fL (9.4-12.4); Platelet Count 213 K/mcL (140-400); Red Blood Count 2.82 M/mcL (3.82-4.97); Red Cell Distribution Width 14.9 % (11.5-14.5); White Blood Count 19.3 K/mcL (4.3-11.1)
[2020-02-04 00:34] LABS: BUN/Creatinine Ratio 16 (6-26); Blood Urea Nitrogen 8 mg/dL (8-23); Calcium 7.5 mg/dL (8.6-10.3); Carbon Dioxide 35 mEq/L (23-29); Chloride 83 mEq/L (98-107); Glucose 139 mg/dL (70-105); Magnesium 1.1 mg/dL (1.6-2.6); Osmolality,Calculated 263 (280-300); Phosphorous 3.3 mg/dL (2.7-4.5); Potassium 3.9 mEq/L (3.5-5.1); Sodium 126 mEq/L (136-145); eGFR For African Americans > 60 (> 60); eGFR For Non-African Americans > 60 (> 60)
[2020-02-04] MEDS: MethylPREDNISolone 40 MG/ML VIAL IVP SCH ×4 (00:48→17:03)
[2020-02-04] MEDS: 0.9 % Sodium Chloride 1,000 ML IVC SCH ×2 (00:49→09:03)
[2020-02-04] MEDS ORDERED: *HR* Enoxaparin 30 MG/0.3 ML SYRINGE SQ SCH (01:00)
[2020-02-04] MEDS ORDERED: *HR* Enoxaparin 40 MG/0.4 ML SYRINGE SQ SCH ×2 (01:45→06:00)
[2020-02-04] MEDS ORDERED: *HR* Promethazine 25 MG/ML VIAL IVP PRN (03:05)
[2020-02-04] MEDS: Pantoprazole 40 MG VIAL IVP SCH ×2 (04:32→17:03)
[2020-02-04] MEDS: Piperacillin/Tazobactam 3.375 GM in 0.9 % Sodium Chloride Mini Bag 100 ML IVPB SCH ×3 (04:32→20:02)
[2020-02-04 04:33] LABS: ABG Base Excess 10 mEq/L (-2 to 3); ABG HCO3 37 mEq/L (21-27); ABG Oxygen Saturation 99 % (95-98); ABG PCO2 70 mmHg (35-45); ABG PH 7.33 pH Units (7.32-7.45); ABG PO2 143 mmHg (85-104); ABG TCO2 39 mEq/L (20-26)
[2020-02-04 04:52] LABS: Hematocrit 28.9 % (35.3-44.9); Hemoglobin 9.2 g/dL (11.5-15.4); Mean Corpuscular HGB Conc 31.8 g/dL (31.6-35.5); Mean Corpuscular Hemoglobin 30.6 pg (28.0-33.3); Mean Platelet Volume 9.2 fL (9.4-12.4); Platelet Count 240 K/mcL (140-400); Red Blood Count 3.01 M/mcL (3.82-4.97); Red Cell Distribution Width 14.7 % (11.5-14.5); White Blood Count 16.1 K/mcL (4.3-11.1)
[2020-02-04 05:11] LABS: BUN/Creatinine Ratio 17 (6-26); Blood Urea Nitrogen 9 mg/dL (8-23); Calcium 7.8 mg/dL (8.6-10.3); Carbon Dioxide 35 mEq/L (23-29); Chloride 84 mEq/L (98-107); Glucose 163 mg/dL (70-105); Magnesium 2.1 mg/dL (1.6-2.6); Osmolality,Calculated 266 (280-300); Phosphorous 3.6 mg/dL (2.7-4.5); Potassium 4.2 mEq/L (3.5-5.1); Sodium 127 mEq/L (136-145); eGFR For African Americans > 60 (> 60); eGFR For Non-African Americans > 60 (> 60)
[2020-02-04 06:36] LABS: INR 0.9; Prothrombin Time 10.6 Seconds (9.4-12.1)
[2020-02-04] MEDS: Folic Acid 1 MG TABLET PO SCH (08:54)
[2020-02-04] MEDS: Furosemide 20 MG TABLET PO SCH (08:54)
[2020-02-04] MEDS: carvediloL 6.25 MG TABLET PO SCH ×2 (08:54→17:03)
[2020-02-04] MEDS: amLODIPine 5 MG TABLET PO SCH (08:54)
[2020-02-04] MEDS: Fluticasone Propionate Nasal 50 MCG/SPRAY BOTTLE NS SCH ×2 (08:55→20:19)
[2020-02-04] MEDS: *HR* Enoxaparin 30 MG/0.3 ML SYRINGE SQ SCH (08:55)
[2020-02-04] MEDS ORDERED: Azithromycin 500 MG in 0.9 % Sodium Chloride 250 ML IVPB SCH (09:00)
[2020-02-04] MEDS: Budesonide/Formoterol 160/4.5 1 PUFF INH IH SCH ×2 (09:35→20:12)
[2020-02-04] MEDS ORDERED: levoFLOXacin 750 MG/150 ML 750 MG/150 ML BAG IVPB SCH (18:00)
[2020-02-04] MEDS: Mirtazapine 15 MG TABLET PO SCH (20:08)
[2020-02-04] MEDS: Melatonin 3 MG TABLET PO SCH (20:08)
[2020-02-04] MEDS: clonazePAM 0.5 MG TABLET PO PRN (22:17)
[2020-02-04] MEDS: *HR* OxyCODONE Immed Rel 5 MG TABLET PO PRN (22:20)
[2020-02-05] MEDS: MethylPREDNISolone 40 MG/ML VIAL IVP SCH ×3 (00:15→11:37)
[2020-02-05 05:11] LABS: Hematocrit 25.6 % (35.3-44.9); Hemoglobin 8.1 g/dL (11.5-15.4); Mean Corpuscular HGB Conc 31.6 g/dL (31.6-35.5); Mean Corpuscular Hemoglobin 29.8 pg (28.0-33.3); Mean Corpuscular Volume 94.1 fL (83.0-100.0); Mean Platelet Volume 10.7 fL (9.4-12.4); Platelet Count 151 K/mcL (140-400); Red Blood Count 2.72 M/mcL (3.82-4.97); Red Cell Distribution Width 14.9 % (11.5-14.5); White Blood Count 10.1 K/mcL (4.3-11.1)
[2020-02-05 05:16] LABS: BUN/Creatinine Ratio 19 (6-26); Blood Urea Nitrogen 10 mg/dL (8-23); Calcium 7.3 mg/dL (8.6-10.3); Carbon Dioxide 35 mEq/L (23-29); Chloride 91 mEq/L (98-107); Glucose 163 mg/dL (70-105); Osmolality,Calculated 277 (280-300); Potassium 3.5 mEq/L (3.5-5.1); Sodium 132 mEq/L (136-145); eGFR For African Americans > 60 (> 60); eGFR For Non-African Americans > 60 (> 60)
[2020-02-05] MEDS: Pantoprazole 40 MG VIAL IVP SCH ×2 (05:26→16:57)
[2020-02-05] MEDS: Piperacillin/Tazobactam 3.375 GM in 0.9 % Sodium Chloride Mini Bag 100 ML IVPB SCH ×3 (05:26→20:25)
[2020-02-05] MEDS: carvediloL 6.25 MG TABLET PO SCH ×2 (08:51→17:20)
[2020-02-05] MEDS: amLODIPine 5 MG TABLET PO SCH (08:52)
[2020-02-05] MEDS: 0.9 % Sodium Chloride 1,000 ML IVC SCH ×2 (09:14→20:36)
[2020-02-05] MEDS: *HR* Enoxaparin 30 MG/0.3 ML SYRINGE SQ SCH (09:16)
[2020-02-05] MEDS: Thiamine (B-1) 100 MG TABLET PO SCH (09:16)
[2020-02-05] MEDS: Furosemide 20 MG TABLET PO SCH (09:16)
[2020-02-05] MEDS: Folic Acid 1 MG TABLET PO SCH (09:16)
[2020-02-05] MEDS: Vitamin B Complex/Vit C/Vit E 1 EACH TABLET PO SCH (09:16)
[2020-02-05] MEDS: Fluticasone Propionate Nasal 50 MCG/SPRAY BOTTLE NS SCH ×2 (09:22→20:36)
[2020-02-05] MEDS: Budesonide/Formoterol 160/4.5 1 PUFF INH IH SCH ×2 (09:41→20:50)
[2020-02-05] MEDS: Ipratropium/Albuterol Neb 3 ML IH PRN ×3 (09:41→20:50)
[2020-02-05 09:54] LABS: ABG Base Excess 7 mEq/L (-2 to 3); ABG HCO3 31 mEq/L (21-27); ABG Oxygen Saturation 90 % (95-98); ABG PCO2 44 mmHg (35-45); ABG PH 7.46 pH Units (7.32-7.45); ABG PO2 55 mmHg (85-104); ABG TCO2 33 mEq/L (20-26)
[2020-02-05] MEDS: clonazePAM 0.5 MG TABLET PO PRN (14:31)
[2020-02-05] MEDS: *HR* OxyCODONE Immed Rel 5 MG TABLET PO PRN (14:31)
[2020-02-05] MEDS: Mirtazapine 15 MG TABLET PO SCH (20:24)
[2020-02-05] MEDS: Melatonin 3 MG TABLET PO SCH (20:24)
[2020-02-05] MEDS ORDERED: Vancomycin 1,250 MG/262.5 ML IV.SOLN IVPB SCH (23:00)
[2020-02-06] MEDS: Piperacillin/Tazobactam 3.375 GM in 0.9 % Sodium Chloride Mini Bag 100 ML IVPB SCH ×3 (00:11→20:22)
[2020-02-06 03:07] LABS: BUN/Creatinine Ratio 20 (6-26); Blood Urea Nitrogen 13 mg/dL (8-23); Calcium 7.1 mg/dL (8.6-10.3); Carbon Dioxide 33 mEq/L (23-29); Chloride 96 mEq/L (98-107); Glucose 189 mg/dL (70-105); Osmolality,Calculated 285 (280-300); Potassium 3.3 mEq/L (3.5-5.1); Sodium 135 mEq/L (136-145); eGFR For African Americans > 60 (> 60); eGFR For Non-African Americans > 60 (> 60)
[2020-02-06 03:32] LABS: Hematocrit 26.1 % (35.3-44.9); Mean Corpuscular HGB Conc 30.7 g/dL (31.6-35.5); Mean Corpuscular Hemoglobin 30.5 pg (28.0-33.3); Mean Corpuscular Volume 99.6 fL (83.0-100.0); Mean Platelet Volume 10.4 fL (9.4-12.4); Platelet Count 157 K/mcL (140-400); Red Blood Count 2.62 M/mcL (3.82-4.97); Red Cell Distribution Width 15.7 % (11.5-14.5)
[2020-02-06] MEDS ORDERED: Potassium Chloride 40 MEQ, Lidocaine 1% 2 ML in 0.9 % Sodium Chloride 500 ML IVPB ONE (07:40)
[2020-02-06 08:19] LABS: VBG Ionized Calcium 1.01 mmol/L (1.15-1.35)
[2020-02-06] MEDS: Folic Acid 1 MG TABLET PO SCH (09:03)
[2020-02-06] MEDS: Furosemide 20 MG TABLET PO SCH (09:03)
[2020-02-06] MEDS: predniSONE 20 MG TABLET PO SCH (09:03)
[2020-02-06] MEDS: Thiamine (B-1) 100 MG TABLET PO SCH (09:03)
[2020-02-06] MEDS: Vitamin B Complex/Vit C/Vit E 1 EACH TABLET PO SCH (09:03)
[2020-02-06] MEDS: amLODIPine 5 MG TABLET PO SCH (09:09)
[2020-02-06] MEDS: carvediloL 6.25 MG TABLET PO SCH ×2 (09:09→17:53)
[2020-02-06] MEDS: Acetaminophen 325 MG TABLET PO PRN (09:13)
[2020-02-06] MEDS ORDERED: Aminoglycoside Consult 1 EACH MC ONE (09:14)
[2020-02-06] MEDS: *HR* Enoxaparin 30 MG/0.3 ML SYRINGE SQ SCH (09:14)
[2020-02-06] MEDS: Fluticasone Propionate Nasal 50 MCG/SPRAY BOTTLE NS SCH ×2 (09:15→21:47)
[2020-02-06] MEDS: Ipratropium/Albuterol Neb 3 ML IH PRN (10:04)
[2020-02-06] MEDS: Budesonide/Formoterol 160/4.5 1 PUFF INH IH SCH ×2 (10:04→19:44)
[2020-02-06] MEDS ORDERED: Albuterol 2.5 MG/3 ML NEBULIZER IH PRN (11:19)
[2020-02-06] MEDS: Pantoprazole 40 MG VIAL IVP SCH (11:25)
[2020-02-06] MEDS: 0.9 % Sodium Chloride 1,000 ML IVC SCH ×2 (11:26→23:31)
[2020-02-06] MEDS: Calcium Gluconate 1gm/50mL 1 GM/50 ML BAG IVPB SCH ×2 (11:38→11:45)
[2020-02-06] MEDS: Ipratropium/Albuterol Neb 3 ML IH SCH ×4 (11:43→23:25)
[2020-02-06] MEDS: clonazePAM 0.5 MG TABLET PO PRN (13:08)
[2020-02-06] MEDS: *HR* OxyCODONE Immed Rel 5 MG TABLET PO PRN (13:08)
[2020-02-06] MEDS ORDERED: Vancomycin 1,250 MG/262.5 ML IV.SOLN IVPB SCH (14:00)
[2020-02-06] MEDS: Mirtazapine 15 MG TABLET PO SCH (20:22)
[2020-02-06] MEDS: Melatonin 3 MG TABLET PO SCH (20:22)
[2020-02-07] MEDS: Ipratropium/Albuterol Neb 3 ML IH SCH ×6 (03:32→23:55)
[2020-02-07] MEDS: Acetaminophen 325 MG TABLET PO PRN (03:34)
[2020-02-07] MEDS: clonazePAM 0.5 MG TABLET PO PRN ×2 (03:34→16:41)
[2020-02-07] MEDS: Piperacillin/Tazobactam 3.375 GM in 0.9 % Sodium Chloride Mini Bag 100 ML IVPB SCH ×3 (03:34→20:35)
[2020-02-07 03:58] LABS: Hematocrit 27.6 % (35.3-44.9); Hemoglobin 8.1 g/dL (11.5-15.4); Mean Corpuscular HGB Conc 29.3 g/dL (31.6-35.5); Mean Corpuscular Hemoglobin 30.5 pg (28.0-33.3); Mean Corpuscular Volume 103.8 fL (83.0-100.0); Mean Platelet Volume 8.6 fL (9.4-12.4); Platelet Count 201 K/mcL (140-400); Red Blood Count 2.66 M/mcL (3.82-4.97); Red Cell Distribution Width 15.8 % (11.5-14.5); White Blood Count 10.6 K/mcL (4.3-11.1)
[2020-02-07 04:18] LABS: BUN/Creatinine Ratio 20 (6-26); Blood Urea Nitrogen 10 mg/dL (8-23); Calcium 7.8 mg/dL (8.6-10.3); Carbon Dioxide 35 mEq/L (23-29); Chloride 98 mEq/L (98-107); Glucose 135 mg/dL (70-105); Osmolality,Calculated 283 (280-300); Potassium 3.6 mEq/L (3.5-5.1); Sodium 136 mEq/L (136-145); eGFR For African Americans > 60 (> 60); eGFR For Non-African Americans > 60 (> 60)
[2020-02-07] MEDS: *HR* OxyCODONE Immed Rel 5 MG TABLET PO PRN (10:01)
[2020-02-07] MEDS: Furosemide 20 MG TABLET PO SCH (10:02)
[2020-02-07] MEDS: Thiamine (B-1) 100 MG TABLET PO SCH (10:02)
[2020-02-07] MEDS: predniSONE 20 MG TABLET PO SCH (10:02)
[2020-02-07] MEDS: Vitamin B Complex/Vit C/Vit E 1 EACH TABLET PO SCH (10:02)
[2020-02-07] MEDS: Folic Acid 1 MG TABLET PO SCH (10:02)
[2020-02-07] MEDS: carvediloL 6.25 MG TABLET PO SCH ×2 (10:02→16:42)
[2020-02-07] MEDS: Fluticasone Propionate Nasal 50 MCG/SPRAY BOTTLE NS SCH ×2 (10:03→21:15)
[2020-02-07] MEDS: *HR* Enoxaparin 30 MG/0.3 ML SYRINGE SQ SCH (10:03)
[2020-02-07] MEDS: Budesonide/Formoterol 160/4.5 1 PUFF INH IH SCH ×2 (10:10→19:52)
[2020-02-07] MEDS: Doxycycline 100 MG CAPSULE PO SCH ×2 (12:01→20:34)
[2020-02-07] MEDS: Mirtazapine 15 MG TABLET PO SCH (20:34)
[2020-02-07] MEDS: Melatonin 3 MG TABLET PO SCH (20:34)
[2020-02-07] MEDS ORDERED: Ondansetron 4 MG/2 ML VIAL IVP ONE (22:14)
[2020-02-08] MEDS: Ipratropium/Albuterol Neb 3 ML IH SCH ×5 (04:25→19:29)
[2020-02-08] MEDS: Piperacillin/Tazobactam 3.375 GM in 0.9 % Sodium Chloride Mini Bag 100 ML IVPB SCH ×3 (04:31→20:10)
[2020-02-08 04:59] LABS: Hematocrit 26.9 % (35.3-44.9); Mean Corpuscular HGB Conc 29.7 g/dL (31.6-35.5); Mean Corpuscular Hemoglobin 30.9 pg (28.0-33.3); Mean Corpuscular Volume 103.9 fL (83.0-100.0); Mean Platelet Volume 8.8 fL (9.4-12.4); Platelet Count 184 K/mcL (140-400); Red Blood Count 2.59 M/mcL (3.82-4.97); Red Cell Distribution Width 15.3 % (11.5-14.5); White Blood Count 13.8 K/mcL (4.3-11.1)
[2020-02-08 05:27] LABS: BUN/Creatinine Ratio 20 (6-26); Blood Urea Nitrogen 8 mg/dL (8-23); Calcium 7.7 mg/dL (8.6-10.3); Carbon Dioxide 42 mEq/L (23-29); Chloride 94 mEq/L (98-107); Glucose 136 mg/dL (70-105); Osmolality,Calculated 288 (280-300); Potassium 3.1 mEq/L (3.5-5.1); Sodium 139 mEq/L (136-145); eGFR For African Americans > 60 (> 60); eGFR For Non-African Americans > 60 (> 60)
[2020-02-08] MEDS: Budesonide/Formoterol 160/4.5 1 PUFF INH IH SCH ×2 (07:33→19:30)
[2020-02-08] MEDS: *HR* Enoxaparin 30 MG/0.3 ML SYRINGE SQ SCH (09:30)
[2020-02-08] MEDS: Doxycycline 100 MG CAPSULE PO SCH ×2 (09:30→20:10)
[2020-02-08] MEDS: carvediloL 6.25 MG TABLET PO SCH ×2 (09:31→16:27)
[2020-02-08] MEDS: Thiamine (B-1) 100 MG TABLET PO SCH (09:31)
[2020-02-08] MEDS: Furosemide 20 MG TABLET PO SCH (09:31)
[2020-02-08] MEDS: Folic Acid 1 MG TABLET PO SCH (09:32)
[2020-02-08] MEDS: Vitamin B Complex/Vit C/Vit E 1 EACH TABLET PO SCH (09:32)
[2020-02-08] MEDS: predniSONE 20 MG TABLET PO SCH (09:32)
[2020-02-08] MEDS: *HR* OxyCODONE Immed Rel 5 MG TABLET PO PRN (11:05)
[2020-02-08] MEDS: Fluticasone Propionate Nasal 50 MCG/SPRAY BOTTLE NS SCH ×2 (11:06→20:10)
[2020-02-08] MEDS: Mirtazapine 15 MG TABLET PO SCH (20:10)
[2020-02-08] MEDS: Melatonin 3 MG TABLET PO SCH (20:10)
[2020-02-09] MEDS: Ipratropium/Albuterol Neb 3 ML IH SCH ×4 (00:21→12:33)
[2020-02-09] MEDS: Piperacillin/Tazobactam 3.375 GM in 0.9 % Sodium Chloride Mini Bag 100 ML IVPB SCH ×2 (03:02→11:13)
[2020-02-09 03:25] LABS: Hematocrit 26.6 % (35.3-44.9); Mean Corpuscular HGB Conc 30.1 g/dL (31.6-35.5); Mean Corpuscular Hemoglobin 30.9 pg (28.0-33.3); Mean Corpuscular Volume 102.7 fL (83.0-100.0); Mean Platelet Volume 8.8 fL (9.4-12.4); Platelet Count 160 K/mcL (140-400); Red Blood Count 2.59 M/mcL (3.82-4.97); Red Cell Distribution Width 15.7 % (11.5-14.5); White Blood Count 9.6 K/mcL (4.3-11.1)
[2020-02-09 03:48] LABS: BUN/Creatinine Ratio 21 (6-26); Blood Urea Nitrogen 6 mg/dL (8-23); Calcium 6.3 mg/dL (8.6-10.3); Carbon Dioxide 35 mEq/L (23-29); Chloride 101 mEq/L (98-107); Glucose 84 mg/dL (70-105); Osmolality,Calculated 297 (280-300); Potassium 3.5 mEq/L (3.5-5.1); Sodium 145 mEq/L (136-145); eGFR For African Americans > 60 (> 60); eGFR For Non-African Americans > 60 (> 60)
[2020-02-09] MEDS: 0.9 % Sodium Chloride 1,000 ML IVC SCH (07:38)
[2020-02-09] MEDS: carvediloL 6.25 MG TABLET PO SCH (07:48)
[2020-02-09] MEDS: *HR* Enoxaparin 30 MG/0.3 ML SYRINGE SQ SCH (07:49)
[2020-02-09] MEDS: Thiamine (B-1) 100 MG TABLET PO SCH (07:49)
[2020-02-09] MEDS: Vitamin B Complex/Vit C/Vit E 1 EACH TABLET PO SCH (07:49)
[2020-02-09] MEDS: Furosemide 20 MG TABLET PO SCH (07:49)
[2020-02-09] MEDS: Folic Acid 1 MG TABLET PO SCH (07:49)
[2020-02-09] MEDS: Doxycycline 100 MG CAPSULE PO SCH (07:49)
[2020-02-09] MEDS: predniSONE 20 MG TABLET PO SCH (07:49)
[2020-02-09] MEDS: Fluticasone Propionate Nasal 50 MCG/SPRAY BOTTLE NS SCH (07:50)
[2020-02-09] MEDS: Budesonide/Formoterol 160/4.5 1 PUFF INH IH SCH (10:16)
[2020-02-09 11:51] VITALS: BP 154/90
== END 2020-02-09 14:46 | DRG 137 ==
LOC: ICNU 19:32 → EMEROOARM 19:32 → SUATTDRO 22:41 → ICNU 23:16 → 3NENU 02-04 15:43 → SUATTDRO 02-04 17:01 → 2ANU 02-05 16:23
PROVIDERS: ADMIT Internal Medicine; ATTEND Internal Medicine